=== PATIENT | female | born 1945 | race Caucasian/White ===

== ENCOUNTER 2017-09-29 12:14 | Outpatient (RCR) | payer MEDICARE, BC, SELFPAY ==
[2017-09-29 14:00] LABS: Absolute Neutrophil Count 5.1 X10^3/uL (2.0-7.7); Basophil# 0.03 X10^3/uL; Basophil% 0.4 % (0-1); Eosinophil# 0.27 X10^3/uL; Eosinophils% 3.5 % (0-5); Hematocrit 39.9 % (37-47); Hemoglobin 13.2 g/dl (12.0-15.0); Lymphocyte % 23.4 % (19-41); Mean Corp Hgb Conc 33.1 g/gl (32-36); Mean Corpuscular Hgb 30.8 pg (27.0-32.0); Mean Platelet Vol. 9.6 fl (6.2-12.0); Monocyte# 0.48 X10^3/uL; Monocyte% 6.3 % (0-10); Neutrophil # 5.09 X10^3/uL (2.7-7.7); Neutrophil % 66.3 % (47-70); Platelet Count 291 K/mm3 (150-450); RBC Distribution Width CV 14.1 % (11.6-14.6); RBC Distribution Width SD 46.9 fl (35.1-43.9); Red Blood Count 4.29 M/mm3 (4.2-5.4); White Blood Count 7.7 K/mm3 (4.4-11.0)
[2017-09-29 14:02] LABS: POSITIVE COUNT NO; POSITIVE DIFFERENTIAL NO; POSITIVE MORPHOLOGY NO
[2017-09-29 14:26] LABS: AST(SGOT) 22 U/L (15-37); Alanine Aminotransfer ALT/SGPT 24 U/L (12-78); Albumin, Serum 3.8 g/dL (3.4-5.0); Alkaline Phosphatase 83 U/L (45-117); Anion Gap 9 (5-15); BUN 21 mg/dL (7-18); BUN/Creat Ratio 19.3 RATIO (10-20); Calcium,Total 9.3 mg/dL (8.5-10.1); Chloride 101 mmol/L (98-107); Creatinine, Serum 1.09 mg/dL (0.55-1.02); EST Glomerular Filtration Rate 52 mL/min (>60); Est Glom Filt Rate - Afr Amer 63 mL/min (>60); Globulin 3.8 g/dL (2.2-4.2); Glucose 86 mg/dL (70-110); Potassium 4.1 mmol/L (3.5-5.1); Protein, Total 7.6 g/dL (6.4-8.2); Sodium Level 138 mmol/L (136-145)
== END 2017-09-29 15:00 | disposition home or self-care (01) ==
LOC: MTLAB 12:14
PROVIDERS: Family Provider Internal Medicine; PCP Internal Medicine; Visit Provider Internal Medicine Rheumatology
DX: M06.00 Rheumatoid arthritis without rheumatoid factor, unspecified site (principal); M18.0 Bilateral primary osteoarthritis of first carpometacarpal joints; M17.0 Bilateral primary osteoarthritis of knee; K21.9 Gastro-esophageal reflux disease without esophagitis; M47.892 Other spondylosis, cervical region; E11.9 Type 2 diabetes mellitus without complications; Z79.899 Other long term (current) drug therapy
CPT/HCPCS: 36415; 80053; 85025

== ENCOUNTER 2018-01-06 08:03 | Inpatient (IN) | payer MEDICARE, BC, SELFPAY ==
[2017-12-25 11:15] VITALS: BP 159/79; PULSE 65; RESP 16; TEMP 36.5; O2SAT 98; BMI 35.7
[2017-12-25 12:13] LABS: Hematocrit 39.8 % (37-47); Hemoglobin 13.5 g/dl (12.0-15.0); Mean Corp Hgb Conc 33.9 g/gl (32-36); Mean Corpuscular Hgb 30.6 pg (27.0-32.0); Mean Corpuscular Volume 90.2 fL (81-99); Mean Platelet Vol. 9.6 fl (6.2-12.0); Platelet Count 301 K/mm3 (150-450); RBC Distribution Width SD 45.2 fl (35.1-43.9); Red Blood Count 4.41 M/mm3 (4.2-5.4); White Blood Count 7.9 K/mm3 (4.4-11.0)
[2017-12-25 12:17] LABS: Scan Indicated on CBC? Y/N NO
[2017-12-25 12:45] LABS: Anion Gap 8 (5-15); BUN 15 mg/dL (7-18); BUN/Creat Ratio 15.9 RATIO (10-20); Chloride 104 mmol/L (98-107); Creatinine, Serum 0.94 mg/dL (0.55-1.02); EST Glomerular Filtration Rate 62 mL/min (>60); Est Glom Filt Rate - Afr Amer 75 mL/min (>60); Estimated Creatinine Clearance 49.15 ml/min; Glucose 78 mg/dL (74-106); Potassium 4.1 mmol/L (3.5-5.1); Sodium Level 138 mmol/L (136-145)
--- NOTE | 2017-12-31 10:13 | CASEMGMT ---
PRE-OP Joint Call: RN CM call to patient to discuss transition planning and care coordination plans for after surgery. Mrs. Ocasio lives in a bilevel home, 2 entry steps and 5 steps to the bedrooms and bathroom, with her spouse. Mrs. Ocasio reports she DOES NOT have a walker yet, and will need this arranged at the hospital prior to transitioning home at discharge. Mrs. Ocasio uses [employer] for her DME, and this is the company she has chosen she would like the RN CM to order her walker from. Mrs. Ocasio states her spouse and her daughter will be going with her to outpatient therapy at [facility] and will be helping at home during recovery. Disposition Plan: Home with support of spouse and dtr, new walker, and outpatient therapy at [facility] TARY Gilliam, RN-BC, CCM
[2018-01-06] VITALS (12 sets, daily range): BP systolic 91–150; BP diastolic 49–79; PULSE 60–87; RESP 16–18; TEMP 36.3–36.8; O2SAT 95–100; BMI 35.7
[2018-01-06] MEDS: oxyCODONE HCl Cr 10 MG Tablet PO (08:56)
[2018-01-06] MEDS: Acetaminophen 500 MG Tablet 1000 MG PO ×3 (08:56→21:58)
[2018-01-06] MEDS: Cefazolin 2 GM in 0.9% Normal Saline 100 ML IV (10:44)
[2018-01-06] MEDS: Lactated Ringers 1,000 ML 125 ML IV ×3 (11:45→21:58)
--- NOTE | 2018-01-06 13:00 | RAD_ITS ---
STUDY: X-RAY - PELVIS AND RIGHT HIP REASON FOR EXAM: Female, 72 years old. Total hip replacement. TECHNIQUE: Radiological exam, hip, unilateral, with pelvis when performed; 2 or 3 views. COMPARISON: None. FINDINGS: The patient is status post right hip replacement. There is good alignment. Postoperative soft tissue changes. RAD/Hip Min 2 Views (Portable) IMPRESSION: Status post right total hip replacement. There is good alignment. Electronically Signed: Musa Cortez MD at 13:37 EDT Tel [phone], Service support ,
--- NOTE | 2018-01-06 14:14 | CPS ---
RT set up pt's home CPAP, added humdity for pt comfort. pt placed self on for nap
[2018-01-06] MEDS: Ondansetron 4 MG/2 ML Vial IV (16:12)
[2018-01-06] MEDS: 0.9% NaCl Peripheral Flush Adult/Peds IV (16:12)
[2018-01-06] MEDS: Cefazolin 1 GM/50 ML BAG IV (18:29)
[2018-01-06] MEDS: Aspirin 325 MG Tablet PO (18:29)
[2018-01-06] MEDS: Celecoxib 200 MG Capsule PO (21:57)
[2018-01-06] MEDS: oxyCODONE 5 MG Tablet PO (21:58)
[2018-01-07] MEDS: Cefazolin 1 GM/50 ML BAG IV (02:32)
[2018-01-07 04:30] VITALS: BP 134/63; PULSE 79; RESP 16; TEMP 36.6; O2SAT 97
[2018-01-07] MEDS: Acetaminophen 500 MG Tablet 1000 MG PO ×2 (05:51→13:55)
[2018-01-07 06:11] LABS: Hematocrit 35.4 % (37-47); Hemoglobin 11.7 g/dl (12.0-15.0); Mean Corp Hgb Conc 33.1 g/gl (32-36); Mean Corpuscular Hgb 30.8 pg (27.0-32.0); Mean Corpuscular Volume 93.2 fL (81-99); Mean Platelet Vol. 9.4 fl (6.2-12.0); Platelet Count 237 K/mm3 (150-450); RBC Distribution Width CV 14.3 % (11.6-14.6); RBC Distribution Width SD 47.1 fl (35.1-43.9); White Blood Count 7.9 K/mm3 (4.4-11.0)
[2018-01-07 06:26] LABS: Scan Indicated on CBC? Y/N NO
[2018-01-07 06:57] LABS: Anion Gap 8 (5-15); BUN 11 mg/dL (7-18); BUN/Creat Ratio 12.4 RATIO (10-20); Calcium,Total 8.2 mg/dL (8.5-10.1); Chloride 108 mmol/L (98-107); Creatinine, Serum 0.88 mg/dL (0.55-1.02); EST Glomerular Filtration Rate 66 mL/min (>60); Est Glom Filt Rate - Afr Amer 80 mL/min (>60); Estimated Creatinine Clearance 52.51 ml/min; Glucose 91 mg/dL (74-106); Potassium 3.9 mmol/L (3.5-5.1); Sodium Level 142 mmol/L (136-145)
--- NOTE | 2018-01-07 07:21 | PCM.PN.ORT ---
Subjective: Patient is resting comfortably in chair at bedside during exam. No adverse events overnight. Pain in her right hip is been very well controlled. She took an oxycodone to help with sleep yesterday evening but otherwise has not had any narcotic pain medicine. She currently denies chest pain, shortness of breath, dizziness, calf pain. She is interested in being discharged home later this afternoon. Objective: Patient is alert and oriented ?3. No acute distress at rest. Breathing easily without respiratory distress. Inspection of right hip reveals a dressing with a spot of dried bloody drainage. Negative Mateo bilaterally. Without signs of DVT. Sensation intact light touch bilateral lower extremities. Pedal pulses present +2 bilaterally. Patient able to actively plantar and dorsiflex bilateral feet against resistance. Neurovascularly intact. - Physical Exam Vital Signs Temp Pulse Resp BP Pulse Ox 97.9 F 79 16 134/63 H 97 01/07/18 04:30 01/07/18 04:30 01/07/18 04:30 01/07/18 04:30 01/07/18 04:30 Oxygen Delivery Method Room Air Weight: 102.058 kg Body Mass Index (BMI) 35.7 Intake and Output for Last 24 Hours 01/05/18 01/06/18 01/07/18 23:59 23:59 23:59 Intake Total 2851 / 2851 2055 Output Total 50 / 50 Balance 2801 / 2801 2055 Laboratory Tests Past 24 Hrs 01/07/18 01/07/18 05:55 05:55 WBC 7.9 RBC 3.80 L Hgb 11.7 L Hct 35.4 L MCV 93.2 MCH 30.8 MCHC 33.1 RDW 14.3 RDW Differential 47.1 H Plt Count 237 MPV 9.4 Sodium 142 Potassium 3.9 Chloride 108 H Carbon Dioxide 26.0 Anion Gap 8 BUN 11 Creatinine 0.88 Estim Creat Clear Calc 52.51 Est GFR (MDRD) Af Amer 80 Est GFR (MDRD) Non-Af 66 BUN/Creatinine Ratio 12.4 Glucose 91 Calcium 8.2 L Medical Necessity - Tobacco Use Smoking Status: Former smoker Assessment/Plan 1. Status post right VANESSA; postop day #1 2. Continue Tylenol and OxyIR for pain control 3. DVT prophylaxis; bilateral teds SCDs and begin aspirin therapy 4. Begin PT/OT; weightbearing as tolerated with walker, hip dislocation precautions 5. Encourage incentive spirometry 6. Continue discharge planning with case management 7. Orthopedically stable okay for discharge to home this afternoon if having adequate pain control and moving well with physical therapy
--- NOTE | 2018-01-07 07:38 | PCM.DC.THR ---
Discharge Diet: No Restrictions Discharge Activity: May Not Drive - while taking narcotic pain medications., May not drive while taking narcotic pain medications., Use Walker May shower in (days): 1 - only if incision is dry and without drainage. Do NOT soak/submerge in tub/pool/rowley/stream/hot tub. Okay to shower over Mepilex dressing Ice area for (Minutes): 20 - Every hour as needed Weight Bearing Status: Weight bearing as tolerated Elevate: Operative Extremity Additional Activity Instructions:: Wear elastic stockings for 2 weeks. DO NOT use alcohol with narcotic pain medication. DO NOT make important decisions while taking narcotic medication. If you have problems with taking your medication (rash, itching, nausea, etc.) call the office at once. See postoperative pink sheet Call your doctor if your incision/area has: Continuous Slow Oozing, Sudden Increased Bleeding, Increased Pain/ Swelling, Increased Redness, Foul Smelling Discharge Call your doctor if you observe: Fever of 101 or Higher, Coldness, Increased Pain, Numbness or Tingling, Shortness of breath, Chest pain, Increased palpitations (irregular heartbeat), Calf discomfort, Uncontrolled pain Remove Dressing in (days):: 5 Cleanse incision/area with: Soap & Water Additional Dressing/Incision Instructions:: See postoperative pink sheet Allergies/Adverse Reactions: Allergies Penicillins [PCN] Allergy (Verified 12/25/17 11:08) Rash Sulfa (Sulfonamide Antibiotics) Allergy (Verified 12/25/17 11:08) Rash azithromycin [From Zithromax] Adverse Reaction (Verified 01/05/18 12:42) Nausea/Vom/Diarrhea codeine Adverse Reaction (Verified 01/05/18 13:27) Other VISION PROBLEMS nitroglycerin [From Nitroglyn] Adverse Reaction (Verified 12/25/17 11:08) Other Medications to take at Discharge Folic Acid 2 tab PO DAILY 10/20/15 Lisinopril 20 mg PO DAILY 10/20/15 Methotrexate Sodium [Methotrexate] 15 mg PO QWEEK 10/20/15 Fluoxetine [Prozac] 10 mg PO DAILY 10/21/15 Cholecalciferol (Vitamin D3) [Vitamin D3] 2,000 unit PO DAILY 12/25/17 Acetaminophen [Tylenol] 1,000 mg PO Q8 #60 tab 01/07/18 Aspirin 325 mg PO BIDCM #30 tab 01/07/18 Oxycodone [Oxyir] 5 - 10 mg PO Q4H PRN PRN 7 Days #56 tablet 01/07/18 Senna [Senokot] 1 tab PO BID #60 tab 01/07/18 The following prescriptions were given: Oxycodone [Oxyir] 5 - 10 mg PO Q4H PRN PRN 7 Days #56 tablet PRN Reason: Mod-Severe Pain (-07/01) Acetaminophen [Tylenol] 1,000 mg PO Q8 #60 tab Aspirin 325 mg PO BIDCM #30 tab Senna [Senokot] 1 tab PO BID #60 tab Primary Care Physician: Jesus Ballard MD [Primary Care Provider] -
[2018-01-07] MEDS: oxyCODONE 5 MG Tablet PO (08:49)
[2018-01-07] MEDS: Folic Acid 1 MG Tablet PO (08:49)
[2018-01-07] MEDS: Aspirin 325 MG Tablet PO (08:49)
[2018-01-07 08:57] VITALS: BP 133/76; PULSE 79; RESP 16; TEMP 36.8; O2SAT 96
[2018-01-07 09:00] VITALS: PULSE 76
--- NOTE | 2018-01-07 11:51 | CASEMGMT ---
GERMAN JOSEPH Face to Face with patient for initial transition planning/care coordination assessment. GERMAN JOSEPH introduced self and role at [facility]. Patient sitting in chair, alert and oriented. Patient willing to participate in assessment and is able to answer all questions appropriately. Care providers, pharmacy, and demographics verified. Patient states she has shower chair, raised toilet seat, cane, grab bars, hand held shower, Cpap, and nebulizer at home. Patient states that she needs a FWW and is agreeable to [employer]. GERMAN JOSEPH will obtain script for FWW and arrange for delivery to hospital prior to discharge. Patient wishes to discharge home and has outpatient therapy setup with [facility] with providing transportation. Patietn states she has no further needs or concerns at this time. CM to follow for discharge planning needs that may arise. Disposition Plan: Patient to discharge home with outpatient therapy, family support, and follow-up plans in place.
[2018-01-07] MEDS: Lisinopril 20 MG Tablet PO (12:12)
[2018-01-07] MEDS: FLUoxetine 10 MG Capsule PO (12:12)
[2018-01-07] MEDS: Celecoxib 200 MG Capsule PO (12:12)
--- NOTE | 2018-01-07 12:54 | CASEMGMT ---
RN CM received script for FFW and [place] [facility] FFW to patient's room prior to discharge. RN CM will continue to follow this patient and plan for a safe discharge.
[2018-01-07 13:52] VITALS: BP 124/76; PULSE 89; RESP 18; TEMP 36.6; O2SAT 96
== END 2018-01-07 14:22 | disposition home or self-care (01) | DRG 470 ==
PROVIDERS: Admitting Provider Orthopaedic Surgery; Family Provider Internal Medicine; PCP Internal Medicine; Visit Provider Orthopaedic Surgery
PROC: 0SR90JZ Replacement of Right Hip Joint with Synthetic Substitute, Open Approach (ICD-10-PCS; CPT 27130; principal; 2018-01-06 09:45)
DX: M16.11 Unilateral primary osteoarthritis, right hip (principal); M06.9 Rheumatoid arthritis, unspecified; I10 Essential (primary) hypertension; Z87.891 Personal history of nicotine dependence; Z79.82 Long term (current) use of aspirin; Z79.52 Long term (current) use of systemic steroids; Z79.899 Other long term (current) drug therapy; G47.30 Sleep apnea, unspecified; K21.9 Gastro-esophageal reflux disease without esophagitis; Z85.038 Personal history of other malignant neoplasm of large intestine; F41.9 Anxiety disorder, unspecified; F32.9 Major depressive disorder, single episode, unspecified; Z96.651 Presence of right artificial knee joint
CPT/HCPCS: 36415; 73502; 80048; 85027; 87081; 97110; 97162; 97165; 97530; 97535; J7120; A4216; J2405

== ENCOUNTER → 2018-02-12 09:39 | Outpatient (CLI) | payer MEDICARE, BC, SELFPAY ==
[2018-02-12 12:45] LABS: AST(SGOT) 18 U/L (15-37); Alanine Aminotransfer ALT/SGPT 18 U/L (13-56); Albumin, Serum 3.6 g/dL (3.2-5.0); Alkaline Phosphatase 89 U/L (45-117); Anion Gap 5 (5-15); BUN 20 mg/dL (7-18); BUN/Creat Ratio 20.7 RATIO (10-20); Chloride 107 mmol/L (98-107); Creatinine, Serum 0.97 mg/dL (0.55-1.02); EST Glomerular Filtration Rate 60 mL/min (>60); Est Glom Filt Rate - Afr Amer 72 mL/min (>60); Globulin 3.6 g/dL (2.2-4.2); Glucose 79 mg/dL (74-106); Potassium 4.2 mmol/L (3.5-5.1); Protein, Total 7.2 g/dL (6.4-8.2); Sodium Level 137 mmol/L (136-145)
[2018-02-12 14:36] LABS: Absolute Lymphocyte Count 1.86 X10^3/ul (0.83-4.51); Absolute Neutrophil Count 3.6 X10^3/uL (2.0-7.7); Basophil# 0.03 X10^3/uL; Basophil% 0.4 % (0-1); Eosinophil# 0.81 X10^3/uL; Eosinophils% 11.9 % (0-5); Hematocrit 37.8 % (37-47); Hemoglobin 12.5 g/dl (12.0-15.0); Lymphocyte # 1.86 X10^3/ul (4.0); Lymphocyte % 27.2 % (19-41); Mean Corp Hgb Conc 33.1 g/gl (32-36); Mean Corpuscular Hgb 29.7 pg (27.0-32.0); Mean Corpuscular Volume 89.8 fL (81-99); Mean Platelet Vol. 10.4 fl (6.2-12.0); Monocyte# 0.55 X10^3/uL; Monocyte% 8.1 % (0-10); Neutrophil # 3.58 X10^3/uL (2.7-7.7); Neutrophil % 52.4 % (47-70); Platelet Count 305 K/mm3 (150-450); RBC Distribution Width CV 14.3 % (11.6-14.6); RBC Distribution Width SD 45.8 fl (35.1-43.9); Red Blood Count 4.21 M/mm3 (4.2-5.4); White Blood Count 6.8 K/mm3 (4.4-11.0)
[2018-02-12 14:38] LABS: POSITIVE COUNT NO; POSITIVE DIFFERENTIAL NO; POSITIVE MORPHOLOGY NO
== END ==
PROVIDERS: Family Provider Internal Medicine; PCP Internal Medicine; Visit Provider Internal Medicine Rheumatology
DX: M06.00 Rheumatoid arthritis without rheumatoid factor, unspecified site (principal); M18.0 Bilateral primary osteoarthritis of first carpometacarpal joints; M17.0 Bilateral primary osteoarthritis of knee; K21.9 Gastro-esophageal reflux disease without esophagitis; M47.892 Other spondylosis, cervical region; E11.9 Type 2 diabetes mellitus without complications; Z79.899 Other long term (current) drug therapy
CPT/HCPCS: 36415; 80053; 85025

== ENCOUNTER → 2018-05-08 08:02 | Outpatient (CLI) | payer MEDICARE, BC, SELFPAY ==
[2018-05-08 10:41] LABS: Absolute Lymphocyte Count 2.09 X10^3/ul (0.83-4.51); Absolute Neutrophil Count 3.4 X10^3/uL (2.0-7.7); Basophil# 0.04 X10^3/uL; Basophil% 0.6 % (0-1); Eosinophil# 0.37 X10^3/uL; Eosinophils% 5.8 % (0-5); Hematocrit 38.8 % (37-47); Hemoglobin 12.9 g/dl (12.0-15.0); Lymphocyte # 2.09 X10^3/ul (4.0); Lymphocyte % 32.8 % (19-41); Mean Corp Hgb Conc 33.2 g/gl (32-36); Mean Corpuscular Hgb 30.1 pg (27.0-32.0); Mean Corpuscular Volume 90.7 fL (81-99); Mean Platelet Vol. 9.8 fl (6.2-12.0); Monocyte# 0.44 X10^3/uL; Monocyte% 6.9 % (0-10); Neutrophil # 3.43 X10^3/uL (2.7-7.7); Neutrophil % 53.7 % (47-70); Platelet Count 294 K/mm3 (150-450); RBC Distribution Width CV 15.2 % (11.6-14.6); RBC Distribution Width SD 49.5 fl (35.1-43.9); Red Blood Count 4.28 M/mm3 (4.2-5.4); White Blood Count 6.4 K/mm3 (4.4-11.0)
[2018-05-08 10:48] LABS: POSITIVE COUNT NO; POSITIVE DIFFERENTIAL NO; POSITIVE MORPHOLOGY NO
[2018-05-08 10:54] LABS: ALB/GLOB Ratio 0.9 RATIO (0.9-2.4); AST(SGOT) 20 U/L (15-37); Alanine Aminotransfer ALT/SGPT 23 U/L (13-56); Albumin, Serum 3.2 g/dL (3.2-5.0); Alkaline Phosphatase 80 U/L (45-117); Anion Gap 9 (5-15); BUN 19 mg/dL (7-18); BUN/Creat Ratio 18.8 RATIO (10-20); Calcium,Total 8.5 mg/dL (8.5-10.1); Chloride 105 mmol/L (98-107); Creatinine, Serum 1.01 mg/dL (0.55-1.02); EST Glomerular Filtration Rate 57 mL/min (>60); Est Glom Filt Rate - Afr Amer 69 mL/min (>60); Globulin 3.6 g/dL (2.2-4.2); Glucose 82 mg/dL (74-106); Potassium 4.2 mmol/L (3.5-5.1); Protein, Total 6.8 g/dL (6.4-8.2); Sodium Level 141 mmol/L (136-145)
== END ==
PROVIDERS: Family Provider Internal Medicine; PCP Internal Medicine; Visit Provider Internal Medicine Rheumatology
DX: M06.00 Rheumatoid arthritis without rheumatoid factor, unspecified site (principal); M18.0 Bilateral primary osteoarthritis of first carpometacarpal joints; M17.0 Bilateral primary osteoarthritis of knee; K21.9 Gastro-esophageal reflux disease without esophagitis; M47.892 Other spondylosis, cervical region; E11.9 Type 2 diabetes mellitus without complications; Z79.899 Other long term (current) drug therapy
CPT/HCPCS: 36415; 80053; 85025

== ENCOUNTER → 2018-08-07 10:56 | Outpatient (CLI) | payer MEDICARE, BC, SELFPAY ==
[2018-08-07 11:31] LABS: Absolute Lymphocyte Count 2.19 X10^3/ul (0.83-4.51); Absolute Neutrophil Count 3.4 X10^3/uL (2.0-7.7); Basophil# 0.03 X10^3/uL; Basophil% 0.5 % (0-1); Eosinophil# 0.38 X10^3/uL; Hematocrit 39.5 % (37-47); Hemoglobin 13.1 g/dl (12.0-15.0); Lymphocyte # 2.19 X10^3/ul (4.0); Lymphocyte % 34.3 % (19-41); Mean Corp Hgb Conc 33.2 g/gl (32-36); Mean Corpuscular Volume 93.4 fL (81-99); Monocyte# 0.39 X10^3/uL; Monocyte% 6.1 % (0-10); Neutrophil # 3.38 X10^3/uL (2.7-7.7); Neutrophil % 52.9 % (47-70); Platelet Count 302 K/mm3 (150-450); RBC Distribution Width CV 14.3 % (11.6-14.6); RBC Distribution Width SD 47.3 fl (35.1-43.9); Red Blood Count 4.23 M/mm3 (4.2-5.4); White Blood Count 6.4 K/mm3 (4.4-11.0)
[2018-08-07 11:35] LABS: POSITIVE COUNT NO; POSITIVE DIFFERENTIAL NO; POSITIVE MORPHOLOGY NO
[2018-08-07 11:36] LABS: AST(SGOT) 22 U/L (15-37); Alanine Aminotransfer ALT/SGPT 26 U/L (13-56); Albumin, Serum 3.5 g/dL (3.2-5.0); Alkaline Phosphatase 75 U/L (45-117); Anion Gap 7 (5-15); BUN 18 mg/dL (7-18); BUN/Creat Ratio 16.7 RATIO (10-20); Calcium,Total 8.8 mg/dL (8.5-10.1); Chloride 104 mmol/L (98-107); Creatinine, Serum 1.08 mg/dL (0.55-1.02); EST Glomerular Filtration Rate 53 mL/min (>60); Est Glom Filt Rate - Afr Amer 64 mL/min (>60); Globulin 3.4 g/dL (2.2-4.2); Glucose 87 mg/dL (74-106); Potassium 4.2 mmol/L (3.5-5.1); Protein, Total 6.9 g/dL (6.4-8.2); Sodium Level 140 mmol/L (136-145)
== END ==
LOC: LABSPEC 10:56 → MTLAB 14:17
PROVIDERS: Family Provider Internal Medicine; PCP Internal Medicine; Referring Provider Internal Medicine Rheumatology; Visit Provider Internal Medicine Rheumatology
DX: M06.00 Rheumatoid arthritis without rheumatoid factor, unspecified site (principal); M18.0 Bilateral primary osteoarthritis of first carpometacarpal joints; M17.0 Bilateral primary osteoarthritis of knee; K21.9 Gastro-esophageal reflux disease without esophagitis; M47.892 Other spondylosis, cervical region; E11.9 Type 2 diabetes mellitus without complications; Z79.899 Other long term (current) drug therapy
CPT/HCPCS: 36415; 80053; 85025

== ENCOUNTER → 2018-11-09 09:30 | Outpatient (CLI) | payer MEDICARE, BC, SELFPAY ==
[2018-01-06 14:18] VITALS: BMI 35.7
--- NOTE | 2018-11-09 09:34 | RAD_ITS ---
STUDY: X-RAY - RIGHT SHOULDER REASON FOR EXAM: Female, 73 years old. Arthritis TECHNIQUE: view(s) of the shoulder. COMPARISON: None. FINDINGS: There is mild degenerative arthrosis of the glenohumeral articulation. There is degenerative arthrosis of the acromioclavicular joint without inferior osseous spur formation. Normal acromion. Normal humeral head and visualized proximal humerus. The soft tissue structures are unremarkable. Normal visualized pulmonary apex. RAD/Shoulder min 2 Views IMPRESSION: Arthrosis. No visualized acute fracture. Electronically Signed: Georgiana Moreira MD at 23:45 EST Tel , Service support ,
[2018-11-09 12:40] LABS: Absolute Lymphocyte Count 1.89 X10^3/ul (0.83-4.51); Basophil# 0.03 X10^3/uL; Basophil% 0.4 % (0-1); Eosinophils% 5.9 % (0-5); Hematocrit 40.7 % (37-47); Hemoglobin 13.2 g/dl (12.0-15.0); Lymphocyte # 1.89 X10^3/ul (4.0); Lymphocyte % 27.8 % (19-41); Mean Corp Hgb Conc 32.4 g/gl (32-36); Mean Corpuscular Hgb 29.7 pg (27.0-32.0); Mean Corpuscular Volume 91.7 fL (81-99); Mean Platelet Vol. 9.8 fl (6.2-12.0); Monocyte# 0.46 X10^3/uL; Monocyte% 6.8 % (0-10); Neutrophil # 4.01 X10^3/uL (2.7-7.7); Platelet Count 303 K/mm3 (150-450); RBC Distribution Width CV 14.4 % (11.6-14.6); RBC Distribution Width SD 47.9 fl (35.1-43.9); Red Blood Count 4.44 M/mm3 (4.2-5.4); White Blood Count 6.8 K/mm3 (4.4-11.0)
[2018-11-09 12:44] LABS: POSITIVE COUNT NO; POSITIVE DIFFERENTIAL NO; POSITIVE MORPHOLOGY NO
[2018-11-09 12:54] LABS: ALB/GLOB Ratio 0.9 RATIO (0.9-2.4); AST(SGOT) 26 U/L (15-37); Alanine Aminotransfer ALT/SGPT 25 U/L (13-56); Albumin, Serum 3.5 g/dL (3.2-5.0); Alkaline Phosphatase 89 U/L (45-117); Anion Gap 10 (5-15); BUN 19 mg/dL (7-18); BUN/Creat Ratio 18.1 RATIO (10-20); Calcium,Total 8.5 mg/dL (8.5-10.1); Chloride 107 mmol/L (98-107); Creatinine, Serum 1.05 mg/dL (0.55-1.02); EST Glomerular Filtration Rate 54 mL/min (>60); Est Glom Filt Rate - Afr Amer 66 mL/min (>60); Globulin 3.7 g/dL (2.2-4.2); Glucose 103 mg/dL (74-106); Potassium 3.7 mmol/L (3.5-5.1); Protein, Total 7.2 g/dL (6.4-8.2); Sodium Level 141 mmol/L (136-145)
== END ==
PROVIDERS: Family Provider Internal Medicine; PCP Internal Medicine; Referring Provider Internal Medicine Rheumatology; Visit Provider Internal Medicine Rheumatology
DX: M06.00 Rheumatoid arthritis without rheumatoid factor, unspecified site (principal); M18.0 Bilateral primary osteoarthritis of first carpometacarpal joints; M17.0 Bilateral primary osteoarthritis of knee; K21.9 Gastro-esophageal reflux disease without esophagitis; M47.892 Other spondylosis, cervical region; E11.9 Type 2 diabetes mellitus without complications; Z79.899 Other long term (current) drug therapy
CPT/HCPCS: 36415; 73030; 80053; 85025

== ENCOUNTER → 2019-02-01 10:18 | Outpatient (CLI) | payer MEDICARE, BC, SELFPAY ==
[2018-01-06 14:18] VITALS: BMI 35.7
[2019-02-01 12:29] LABS: Absolute Lymphocyte Count 1.97 X10^3/ul (0.83-4.51); Basophil# 0.02 X10^3/uL; Basophil% 0.2 % (0-1); Eosinophil# 0.14 X10^3/uL; Eosinophils% 1.6 % (0-5); Hemoglobin 12.9 g/dl (12.0-15.0); Lymphocyte # 1.97 X10^3/ul (4.0); Lymphocyte % 22.9 % (19-41); Mean Corp Hgb Conc 33.1 g/gl (32-36); Mean Corpuscular Volume 90.7 fL (81-99); Mean Platelet Vol. 9.7 fl (6.2-12.0); Monocyte# 0.45 X10^3/uL; Monocyte% 5.2 % (0-10); Neutrophil # 6.01 X10^3/uL (2.7-7.7); Neutrophil % 69.9 % (47-70); Platelet Count 316 K/mm3 (150-450); RBC Distribution Width CV 14.5 % (11.6-14.6); RBC Distribution Width SD 46.7 fl (35.1-43.9); White Blood Count 8.6 K/mm3 (4.4-11.0)
[2019-02-01 12:33] LABS: POSITIVE COUNT NO; POSITIVE DIFFERENTIAL NO; POSITIVE MORPHOLOGY NO
[2019-02-01 12:47] LABS: AST(SGOT) 22 U/L (15-37); Alanine Aminotransfer ALT/SGPT 21 U/L (13-56); Albumin, Serum 3.6 g/dL (3.2-5.0); Alkaline Phosphatase 100 U/L (45-117); Anion Gap 2 (5-15); BUN 17 mg/dL (7-18); BUN/Creat Ratio 16.7 RATIO (10-20); Calcium,Total 8.7 mg/dL (8.5-10.1); Chloride 107 mmol/L (98-107); Creatinine, Serum 1.02 mg/dL (0.55-1.02); EST Glomerular Filtration Rate 56 mL/min (>60); Est Glom Filt Rate - Afr Amer 68 mL/min (>60); Globulin 3.5 g/dL (2.2-4.2); Glucose 106 mg/dL (74-106); Potassium 4.2 mmol/L (3.5-5.1); Protein, Total 7.1 g/dL (6.4-8.2); Sodium Level 139 mmol/L (136-145)
== END ==
PROVIDERS: Family Provider Internal Medicine; PCP Internal Medicine; Referring Provider Internal Medicine Rheumatology; Visit Provider Internal Medicine Rheumatology
DX: M06.00 Rheumatoid arthritis without rheumatoid factor, unspecified site (principal); M18.0 Bilateral primary osteoarthritis of first carpometacarpal joints; M17.0 Bilateral primary osteoarthritis of knee; K21.9 Gastro-esophageal reflux disease without esophagitis; M47.892 Other spondylosis, cervical region; E11.9 Type 2 diabetes mellitus without complications; Z79.899 Other long term (current) drug therapy
CPT/HCPCS: 36415; 80053; 85025

== ENCOUNTER → 2019-04-21 | Outpatient (CLI) | payer MEDICARE, BC, SELFPAY ==
--- NOTE | 2019-04-05 03:02 | HP_ITS ---
Intake Vital Signs 04/05/19 Body Mass Index (BMI) 35.7 04/05/19 Height 5 ft 7 in 04/05/19 Weight: 214 lb 3 oz 04/05/19 Body Mass Index (BMI) 33.5 04/05/19 Blood Pressure 127/82 H 04/05/19 Blood Pressure Location Rt brachial 04/05/19 Respiratory Rate 20 H 04/05/19 Pulse Rate 76 04/05/19 Pulse Ox 98 Intake Visit Reasons: Lt Breast Calcifications Birads 4 Chief Complaint: abn mammo left [employer] Required: No Is patient in pain?: No Allergies Penicillins [PCN] Allergy (Verified 04/05/19 14:47) Rash Sulfa (Sulfonamide Antibiotics) Allergy (Verified 04/05/19 14:47) Rash azithromycin [From Zithromax] Adverse Reaction (Verified 04/05/19 14:47) Nausea/Vom/Diarrhea codeine Adverse Reaction (Verified 04/05/19 14:47) Other nitroglycerin [From Nitroglyn] Adverse Reaction (Verified 04/05/19 14:47) Other Medications Folic Acid 2 tab PO DAILY 10/20/15 [History Confirmed 04/05/19] Lisinopril 20 mg PO DAILY 10/20/15 [History Confirmed 04/05/19] Methotrexate Sodium [Methotrexate] 15 mg PO QWEEK 10/20/15 [History Confirmed 04/05/19] Fluoxetine [Prozac] 10 mg PO DAILY 10/21/15 [History Confirmed 04/05/19] Cholecalciferol (Vitamin D3) [Vitamin D3] 2,000 unit PO DAILY 12/25/17 [History Confirmed 04/05/19] Acetaminophen [Tylenol] 1,000 mg PO Q8 #60 tab 01/07/18 [Rx Confirmed 04/05/19] Aspirin 325 mg PO BIDCM #30 tab 01/07/18 [Rx Confirmed 04/05/19] Oxycodone [Oxyir] 5 - 10 mg PO Q4H PRN PRN 7 Days #56 tab 01/07/18 [Rx Confirmed 04/05/19] Senna [Senokot] 1 tab PO BID #60 tab 01/07/18 [Rx Confirmed 04/05/19] Is last menstrual period known: No Post menopausal: Yes Patient : No PFSH Medical History (Updated 04/05/19 @ 15:01 by Jamari Montero MD) Abnormal mammogram of left breast (Acute) Abdominal pain (Acute) History of colon cancer (Chronic) Rheumatoid arthritis (Chronic) Hypertension (Chronic) Surgical History (Updated 04/05/19 @ 14:45 by Liza Rodriguez) History of colonoscopy (Acute ~2016) History of hernia repair (Acute) History of section (Acute) History of colectomy (Acute ~2001) Family History (Updated 04/05/19 @ 14:46 by Liza Rodriguez) Sister Diabetes Asthma Hypertension Brother Heart disease Hypertension Social History (Updated 04/05/19 @ 15:02 by Jamari Montero MD) Smoking Status: Former smoker HPI HPI HPI: FABIO PORTILLO, is a 73 F who presents to the office today for HPI HPI Surgical H&P: Yes HPI: FABIO PORTILLO, is a 73 F who presents to the office today for surgical consultation regarding abnormal left breast mammogram. Is a very pleasant female. She is [age] years old. I have most recently assisted her December 16, 2016 with a stereotactic needle core left breast biopsy. That also was performed for clustered microcalcifications. 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 Her new area of microcalcifications is separate from that area. That area does remain marked. At the [facility] on March 09, 2019 she had bilateral mammography. BI-RADS Category 4A. Cluster mitral applications left breast 12 o'clock position middle depth. These are felt to have increased in number. Fortunately there felt to be of lower suspicion. Patient has not had any nipple discharge or bleeding. On my personal review of her films I suspect that this is likely a micro- fibroadenoma as well. ROS General General: Yes fatigue and colon cancer; no weight change, appetite, breast cancer or weakness HEENT HEENT: No difficulty swallowing, eye injury, eye surgery, swollen glands or hoarseness Endo Endocrine: No thyroid disease, diabetes mellitus, thyroid cancer, Hair loss, heat intolerance or cold intolerance Breast Breast: Yes abnormal mammogram; no left breast lump, right breast lump, nipple discharge, breast pain, abnormal US or breast enlargement Cardio Cardiovascular: Yes high blood pressure; no murmur, pacemaker, heart disease, atrial fibrillation, heart attack, heart stent, palpitations, shortness of breat with exertion or chest pain Psych Psychiatric: Yes depression and anxiety; no hearing voices Resp Respiratory: Yes shortness of breath, Yes sleep apnea, No cough, No COPD, No asthma, No emphysema, No wheezing Gastro Gastrointestinal: No abdominal pain, No nausea or vomiting, No diarrhea, No constipation, No blood in stool, Yes acid reflux, Yes hemorrhoids, No ulcers, No gallbladder problem, No black,tarry stools Neuro Neurologic: No weakness Exam Chest Breast Palpation: No nipple discharge Other: Bilateral breasts: No focal mass. No nipple discharge. No axillary or clavicular adenopathy Cardio Heart Sounds: no murmurs Assessment & Plan Problems 1. Abnormal mammogram of left breast R92.8 Plan Abnormal left mammogram with clustered microcalcifications 12 o'clock position middle depth. I recommended the patient is stereotactic needle core biopsy of this area. She is aware of the technique, benefit, risks, alternatives. She has had an opportunity to ask and have questions answered. We will hold her aspirin for 3 days preprocedure. We will schedule and proceed at her discretion. I have a lower level of suspicion regarding this area. Jamari Montero M.D., F.A.C.S. Coding Level of Care Code Off vis,est,level 2 Diagnoses Abnormal mammogram of left breast R92.8 04/05/19 1502 <Electronically signed by Jamari waddell MD> Date _ Jamari Montero MD I have re-examined the patient. There are no clinical changes since date of exam.
[2019-04-05 14:50] VITALS: BMI 35.7
--- NOTE | 2019-04-21 11:25 | BRBX_PTH ---
PATIENT: FABIO PORTILLO LOC: [facility] U#:[id number] AGE/SX: 74/F ROOM: RE04/21/[address]: Dr. Jamari Montero MD : 1945 BED: DIS: 04/21/2019 SPEC #: [id number] RECD: 04/21/19 11:58 STATUS: ALEAH JEAN-PAUL #: [id number] YEN: 04/21/19 11:[address]: Jamari Montero DEPT: SURGICAL PATHOLOGY RECD BY: Brandon Montoya ENTERED: 04/21/19 12:39 SP TYPE: BREAST BX OTHR DR: MD Jesus French MD Tissues: A - Left breast, NOS B - Left breast, NOS Procedures: Surgery Specimen Level IV HEADER OPERATION: Left stereotactic breast biopsy PRE-OP DIAGNOSIS: Left breast at 12 o'clock middle depth microcalcifications TISSUE SUBMITTED: A. Left breast core tissue, more medial, B. Left breast core tissue, more lateral ISCHEMIC TIME: 2 minutes FIXATION TIME: 8 hours MICROSCOPIC DIAGNOSIS A. Left breast, medial, stereotactic needle core biopsy: Fragments of hyalinized fibroadenoma with associated clustered microcalcifications. Mild duct ectasia. No evidence of malignancy. B. Left breast, lateral, stereotactic needle core biopsy: Fragments of hyalinized fibroadenoma with associated clustered microcalcifications. Mild duct ectasia. No evidence of malignancy. AM:geo 04/22/19 MICROSCOPIC DESCRIPTION Slides are reviewed. GROSS DESCRIPTION A - Received in fixative is one container labeled with the patient's name and designated mid depth 12 o'clock, more medial. The specimen consists of multiple elongated fragments of velazquez-yellow fibroadipose tissue that in aggregate measure 4 x 3 x 0.3 cm. The entire specimen is submitted in two cassettes. B - Received in fixative is one container labeled with the patient's name and designated more lateral. The specimen consists of multiple elongated fragments of velazquez-yellow fibroadipose tissue that in aggregate measure 5 x 3 x 0.3 cm. The entire specimen is submitted in two cassettes. / MICHELLE:geo 04/21/19 TC:5 CPT: 23964 x2
--- NOTE | 2019-04-21 11:38 | PCM.OPRPT ---
Problem List (1) Abnormal mammogram of left breast Status: Acute Report of Operation Date of Procedure: 04/21/19 Pre-Operative Diagnosis: Clustered microcalcifications mid left breast Post-Operative Diagnosis: 2 areas of clustered calcifications mid left breast. #1 more medially positioned. #2 more laterally positioned Surgery/Procedure Performed:: Stereotactic needle core biopsy left breast x2 sites Description of Surgical Findings:: Timeout and informed consent was obtained. 74-year-old female taken to the stereotactic unit. On preoperative imaging she was felt to have clustered microcalcifications in the central left breast. She was placed prone on the table in the cc view. The on fast view demonstrates actually 2 separate areas of clustered calcifications by several centimeters. I elected after discussion with the patient to target on each and sample each. The breast was prepped with Betadine. 1% lidocaine was used as a local anesthetic. Throughout both procedures a total of 15 cc were used. A small stab incision was created. An 8 gauge resolved needle was advanced to prefire depth for #1. Device was fired. 4 cores were obtained. 2 of the cores had microcalcifications very much consistent with the lesion. A ribbon clip was placed at this more medial central site. On fast view demonstrated absence of the previous calcifications at that site and placement of the ribbon. We changed the resolve needle and guide. Repeat stereotactic images and repeat localization for lesion #2 were performed. A small stab incision was created. The EKG resolved needle was advanced to prefire depth. Prefire films were obtained demonstrating good localization. The device was fired and 6 cores were obtained. Specimen mammograms again demonstrated microcalcifications present within the specimens very much consistent with the lesion in question. A dumbbell marking clip was left in position. She was released from the device and pressure was held for hemostasis. Steri-Strips Telfa and OpSite dressings applied. For each of the biopsies the specimens were immediately placed in formalin for analysis. The #1 area was felt to be the mid central left breast more medially placed and the #2 area mid central left breast more laterally placed. She was given activity wound care instructions. She will be notified of pathology as a become available. Specimens core specimens. Drains none. Blood loss minimal Jamari Montero M.D., F.A.C.S. Type of Anesthesia:: Local
== END | disposition home or self-care (01) ==
LOC: BIRAD 10:21
PROVIDERS: Family Provider Internal Medicine; PCP Internal Medicine; Referring Provider Surgery; Visit Provider Surgery
DX: D24.2 Benign neoplasm of left breast (principal); N60.42 Mammary duct ectasia of left breast; R92.8 Other abnormal and inconclusive findings on diagnostic imaging of breast; I10 Essential (primary) hypertension; M06.9 Rheumatoid arthritis, unspecified; Z79.82 Long term (current) use of aspirin; Z79.899 Other long term (current) drug therapy; Z87.891 Personal history of nicotine dependence; Z85.038 Personal history of other malignant neoplasm of large intestine
CPT/HCPCS: 19081; 19082; 88305; J7050; A4648

== ENCOUNTER → 2019-05-03 10:07 | Outpatient (CLI) | payer MEDICARE, BC, SELFPAY ==
[2019-04-05 14:50] VITALS: BMI 35.7
[2019-05-03 12:29] LABS: Absolute Lymphocyte Count 1.73 X10^3/uL (0.83-4.51); Absolute Neutrophil Count 2.6 X10^3/uL (2.0-7.7); Basophil# 0.04 X10^3/uL; Basophil% 0.8 % (0-1); Eosinophil# 0.46 X10^3/uL; Eosinophils% 8.8 % (0-5); Hematocrit 38.9 % (37-47); Hemoglobin 12.9 g/dL (12.0-15.0); Lymphocyte # 1.73 X10^3/ul (4.0); Lymphocyte % 33.3 % (19-41); Mean Corp Hgb Conc 33.2 g/dL (32-36); Mean Corpuscular Hgb 30.6 pg (27.0-32.0); Mean Corpuscular Volume 92.4 fL (81-99); Mean Platelet Vol. 9.7 fl (6.2-12.0); Monocyte# 0.39 X10^3/uL; Monocyte% 7.5 % (0-10); NRBC Flagged by Analyzer 0 % (0-5); Neutrophil # 2.57 X10^3/uL (2.7-7.7); Neutrophil % 49.4 % (47-70); Platelet Count 267 K/mm3 (150-450); RBC Distribution Width CV 13.9 % (11.6-14.6); RBC Distribution Width SD 46.7 fl (35.1-43.9); Red Blood Count 4.21 M/mm3 (4.2-5.4); White Blood Count 5.2 K/mm3 (4.4-11.0)
[2019-05-03 12:49] LABS: ALB/GLOB Ratio 0.9 RATIO (0.9-2.4); AST(SGOT) 22 U/L (15-37); Alanine Aminotransfer ALT/SGPT 23 U/L (13-56); Albumin, Serum 3.3 g/dL (3.2-5.0); Alkaline Phosphatase 97 U/L (45-117); Anion Gap 6 (5-15); BUN 11 mg/dL (7-18); BUN/Creat Ratio 11.1 RATIO (10-20); Calcium,Total 8.7 mg/dL (8.5-10.1); Chloride 106 mmol/L (98-107); Creatinine, Serum 0.99 mg/dL (0.55-1.02); EST Glomerular Filtration Rate 58 mL/min (>60); Est Glom Filt Rate - Afr Amer 70 mL/min (>60); Globulin 3.7 g/dL (2.2-4.2); Glucose 98 mg/dL (74-106); Sodium Level 139 mmol/L (136-145)
== END ==
PROVIDERS: Family Provider Internal Medicine; PCP Internal Medicine; Referring Provider Internal Medicine Rheumatology; Visit Provider Internal Medicine Rheumatology
DX: M06.00 Rheumatoid arthritis without rheumatoid factor, unspecified site (principal); M65.352 Trigger finger, left little finger; M18.0 Bilateral primary osteoarthritis of first carpometacarpal joints; M17.0 Bilateral primary osteoarthritis of knee; K21.9 Gastro-esophageal reflux disease without esophagitis; M47.892 Other spondylosis, cervical region; E11.9 Type 2 diabetes mellitus without complications; Z79.899 Other long term (current) drug therapy
CPT/HCPCS: 36415; 80053; 85025

== ENCOUNTER → 2019-07-26 | Outpatient (CLI) | payer MEDICARE, BC, SELFPAY ==
[2019-04-05 14:50] VITALS: BMI 35.7
[2019-07-26 12:22] LABS: Absolute Lymphocyte Count 1.85 X10^3/uL (0.83-4.51); Absolute Neutrophil Count 4.7 X10^3/uL (2.0-7.7); Basophil# 0.05 X10^3/uL; Basophil% 0.7 % (0-1); Eosinophil# 0.37 X10^3/uL; Eosinophils% 4.9 % (0-5); Hematocrit 40.1 % (37-47); Lymphocyte # 1.85 X10^3/ul (4.0); Lymphocyte % 24.7 % (19-41); Mean Corp Hgb Conc 32.4 g/dL (32-36); Mean Corpuscular Hgb 30.4 pg (27.0-32.0); Mean Corpuscular Volume 93.9 fL (81-99); Mean Platelet Vol. 9.6 fl (6.2-12.0); Monocyte# 0.49 X10^3/uL; Monocyte% 6.5 % (0-10); NRBC Flagged by Analyzer 0 % (0-5); Neutrophil # 4.71 X10^3/uL (2.7-7.7); Neutrophil % 62.8 % (47-70); Platelet Count 278 K/mm3 (150-450); RBC Distribution Width CV 13.7 % (11.6-14.6); RBC Distribution Width SD 46.8 fl (35.1-43.9); Red Blood Count 4.27 M/mm3 (4.2-5.4); White Blood Count 7.5 K/mm3 (4.4-11.0)
[2019-07-26 12:45] LABS: AST(SGOT) 28 U/L (15-37); Alanine Aminotransfer ALT/SGPT 27 U/L (13-56); Albumin, Serum 3.7 g/dL (3.2-5.0); Alkaline Phosphatase 78 U/L (45-117); Anion Gap 6 (5-15); BUN 14 mg/dL (7-18); BUN/Creat Ratio 14.6 RATIO (10-20); Calcium,Total 8.9 mg/dL (8.5-10.1); Chloride 109 mmol/L (98-107); Creatinine, Serum 0.96 mg/dL (0.55-1.02); EST Glomerular Filtration Rate 60 mL/min (>60); Est Glom Filt Rate - Afr Amer 73 mL/min (>60); Globulin 3.6 g/dL (2.2-4.2); Glucose 80 mg/dL (74-106); Potassium 4.1 mmol/L (3.5-5.1); Protein, Total 7.3 g/dL (6.4-8.2); Sodium Level 142 mmol/L (136-145)
== END | disposition home or self-care (01) ==
LOC: MTLAB 11:13
PROVIDERS: Family Provider Internal Medicine; PCP Internal Medicine; Referring Provider Internal Medicine Rheumatology; Visit Provider Internal Medicine Rheumatology
DX: M06.00 Rheumatoid arthritis without rheumatoid factor, unspecified site (principal); Z79.899 Other long term (current) drug therapy; M65.352 Trigger finger, left little finger; M18.0 Bilateral primary osteoarthritis of first carpometacarpal joints; M17.0 Bilateral primary osteoarthritis of knee; K21.9 Gastro-esophageal reflux disease without esophagitis; M47.892 Other spondylosis, cervical region; E11.9 Type 2 diabetes mellitus without complications
CPT/HCPCS: 36415; 80053; 85025

== ENCOUNTER → 2019-08-13 06:46 | Outpatient (CLI) | payer MEDICARE, BC, SELFPAY ==
[2019-04-05 14:50] VITALS: BMI 35.7
--- NOTE | 2019-08-13 15:49 | NEURO ---
NCS and/or EMG Patient Report HPI: Patient a 74-year-old female who presented with bilateral hand numbness, tingling and pain for more than 6 months. Patient is right-hand dominant but symptoms are worse in the left hand. Over past month they have been waking her up in night. Patient is not getting much relief from both hand braces. As per patient, driving is painful. Patient does not have history of diabetes or neck injuries. Patient denies neck pain or radiating pain in the arms. Patient has a history of rheumatoid arthritis and osteoarthritis. Physical Exam: Tenderness in bilateral anterior wrist areas. Tinel's sign positive at right and left wrist. Decreased sensation to light touch in bilateral distal hand fingers. Mild weakness of the finger flexors and abductors in both hands. Findings: 1. There is evidence of prolongation of distal latencies of right and left median sensory nerve responses. 2. There is prolongation of distal latency of left ulnar sensory nerve response. 3. There is prolongation of the distal latencies of left median motor nerve response. 4. Needle examination of the right and left upper extremities showed increased amplitude motor unit action potential in the left abductor pollicis brevis muscle otherwise normal. Impression: 1. 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 2. Findings are also consistent with mild left ulnar sensory neuropathy. Recommendation: 1. Patient recommended to wear both hand and elbow splints as much as possible 2. Patient recommended to avoid repetitive hand movements, heavy lifting and leaning or sleeping on elbows. 3. Patient may need surgical release of left hand carpal tunnel syndrome if symptoms continues.
== END ==
PROVIDERS: Family Provider Internal Medicine; PCP Internal Medicine; Referring Provider Internal Medicine Rheumatology; Visit Provider Internal Medicine Rheumatology
DX: M06.00 Rheumatoid arthritis without rheumatoid factor, unspecified site (principal); Z79.899 Other long term (current) drug therapy; M65.352 Trigger finger, left little finger; M18.0 Bilateral primary osteoarthritis of first carpometacarpal joints; M17.0 Bilateral primary osteoarthritis of knee; K21.9 Gastro-esophageal reflux disease without esophagitis; M47.892 Other spondylosis, cervical region; E11.9 Type 2 diabetes mellitus without complications; R20.0 Anesthesia of skin
CPT/HCPCS: 95886; 95911

== ENCOUNTER → 2019-10-27 08:10 | Outpatient (CLI) | payer MEDICARE, BC, SELFPAY ==
[2019-04-05 14:50] VITALS: BMI 35.7
[2019-10-27 10:08] LABS: Absolute Lymphocyte Count 2.53 X10^3/uL (0.83-4.51); Absolute Neutrophil Count 5.8 X10^3/uL (2.0-7.7); Basophil# 0.04 X10^3/uL; Basophil% 0.4 % (0-1); Eosinophil# 0.23 X10^3/uL; Eosinophils% 2.5 % (0-5); Hematocrit 40.3 % (37-47); Hemoglobin 13.3 g/dL (12.0-15.0); Lymphocyte # 2.53 X10^3/ul (4.0); Lymphocyte % 27.2 % (19-41); Mean Corpuscular Hgb 30.1 pg (27.0-32.0); Mean Corpuscular Volume 91.2 fL (81-99); Mean Platelet Vol. 9.6 fl (6.2-12.0); Monocyte# 0.62 X10^3/uL; Monocyte% 6.7 % (0-10); NRBC Flagged by Analyzer 0 % (0-5); Neutrophil # 5.84 X10^3/uL (2.7-7.7); Neutrophil % 62.8 % (47-70); Platelet Count 300 K/mm3 (150-450); RBC Distribution Width CV 12.8 % (11.6-14.6); RBC Distribution Width SD 42.5 fl (35.1-43.9); Red Blood Count 4.42 M/mm3 (4.2-5.4); White Blood Count 9.3 K/mm3 (4.4-11.0)
[2019-10-27 10:31] LABS: ALB/GLOB Ratio 0.9 RATIO (0.9-2.4); AST(SGOT) 19 U/L (15-37); Alanine Aminotransfer ALT/SGPT 23 U/L (13-56); Albumin, Serum 3.5 g/dL (3.2-5.0); Alkaline Phosphatase 91 U/L (45-117); Anion Gap 3 (5-15); BUN 22 mg/dL (7-18); BUN/Creat Ratio 19.1 RATIO (10-20); Calcium,Total 9.4 mg/dL (8.5-10.1); Chloride 106 mmol/L (98-107); Creatinine, Serum 1.15 mg/dL (0.55-1.02); EST Glomerular Filtration Rate 49 mL/min (>60); Est Glom Filt Rate - Afr Amer 59 mL/min (>60); Globulin 3.9 g/dL (2.2-4.2); Glucose 74 mg/dL (74-106); Potassium 3.8 mmol/L (3.5-5.1); Protein, Total 7.4 g/dL (6.4-8.2); Sodium Level 139 mmol/L (136-145)
== END ==
PROVIDERS: PCP Internal Medicine; Referring Provider Internal Medicine Rheumatology; Visit Provider Internal Medicine Rheumatology
DX: M06.00 Rheumatoid arthritis without rheumatoid factor, unspecified site (principal); G56.03 Carpal tunnel syndrome, bilateral upper limbs; K21.9 Gastro-esophageal reflux disease without esophagitis; E11.9 Type 2 diabetes mellitus without complications; M65.352 Trigger finger, left little finger; M18.0 Bilateral primary osteoarthritis of first carpometacarpal joints; M17.0 Bilateral primary osteoarthritis of knee; M47.892 Other spondylosis, cervical region; Z79.899 Other long term (current) drug therapy
CPT/HCPCS: 36415; 80053; 85025

== ENCOUNTER 2019-12-24 06:10 | Emergency (ER) | payer MEDICARE, BC, SELFPAY ==
[2019-04-05 14:50] VITALS: BMI 35.7
[2019-12-24 06:11] VITALS: BP 134/52; PULSE 63; RESP 18; TEMP 36.8; O2SAT 97; BMI 36.8
--- NOTE | 2019-12-24 06:15 | RAD_ITS ---
STUDY: X-RAY - LEFT WRIST REASON FOR EXAM: Fell. TECHNIQUE: 3 view(s) of the wrist were obtained. COMPARISON: None. FINDINGS: There is a fracture of the distal radius displaced dorsally approximately 1 bone width. Normal radiocarpal articulation. Normal distal radioulnar articulation. Normal carpal bones. Normal carpal articulations. Normal carpometacarpal articulation of the thumb. Normal second through fifth carpometacarpal articulations. Normal visualized metacarpal bones. There is soft tissue swelling. RAD/Wrist min 3 Views IMPRESSION: Displaced distal radial fracture. Electronically Signed: Sunil Dela Cruz MD at 7:28 EDT Tel , Service support ,
--- NOTE | 2019-12-24 06:16 | ED.DCSUM_ITS ---
History of Present Illness Chief Complaint: Upper Extremity Injury Informant: Patient Onset: Today Context: Sudden Onset Timing: Continuous Current Severity: Moderate Maximum Severity: Moderate Narrative: The patient is a 74-year-old female with medical history significant for rheumatoid arthritis who is on Plaquenil and methotrexate that presents to the emergency department with left wrist injury. The patient states that she was hurrying to help her get dressed this morning. She lost her balance and fell. She tried to catch herself with an outstretched left hand. She had immediate pain in her left wrist. She denies striking her head or losing consciousness. She is not on anticoagulants. She denies other injury. She denies any numbness or tingling in the hand. Prior similar symptoms: No Recent Illness/Hospitalization: No Past Medical History - Allergies and Home Meds Allergies/Adverse Reactions: Allergies Penicillins [PCN] Allergy (Verified 04/05/19 14:47) Rash Sulfa (Sulfonamide Antibiotics) Allergy (Verified 04/05/19 14:47) Rash azithromycin [From Zithromax] Adverse Reaction (Verified 04/05/19 14:47) Nausea/Vom/Diarrhea codeine Adverse Reaction (Verified 04/05/19 14:47) Other VISION PROBLEMS hydrochlorothiazide Adverse Reaction (Verified 12/24/19 07:14) Rash nitroglycerin [From Nitroglyn] Adverse Reaction (Verified 04/05/19 14:47) Other Primary Care Physician: Jesus Ballard MD [Primary Care Provider] - Prior records reviewed: Yes Past Medical History: - - Rheumatoid arthritis, hypertension, high cholesterol Surgical History: herniorrhaphy, - Smoking Status: Former smoker - Family History Maternal Family History: Family History (Last Updated 04/05/19 @ 14:46 by Liza Rodriguez) Sister Diabetes Asthma Hypertension Brother Heart disease Hypertension Family History: Reports: No pertinent history Paternal Family History: Family History (Last Updated 04/05/19 @ 14:46 by Liza Rodriguez) Sister Diabetes Asthma Hypertension Brother Heart disease Hypertension Family History: Reports: No pertinent history Review of Systems General: Denies: Chills, Fever, Sweats Eyes: Denies: Visual changes - bilaterally, Diplopia ENT: Denies: Rhinorrhea, Sore throat Cardiovascular: Denies: Chest pain, Palpitations Respiratory: Denies: Dyspnea, Cough, Dyspnea on exertion Gastrointestinal: Denies: Abdominal pain, Nausea, Vomiting, Diarrhea, Melena, Hematochezia Genitourinary: Denies: Dysuria, Hematuria, Frequency Musculoskeletal: Denies: Back pain, Extremity Pain Skin: Denies: Rash, Wounds Neurological: Denies: Headache, Weakness, Numbness Physical Exam Inital Vital Signs reviewed: Yes General: Well nourished, Well developed, No Acute Distress Head: Normocephalic, Atraumatic Eyes: Perrl, EOMI ENT: Moist mucous membranes, No rhinorrhea Neck: Supple, Nontender Cardiovascular: Regular rate, Regular rhythm, No murmurs Respiratory: No distress, CTA bilaterally, Chest nontender Abdomen: Soft, Nontender, Nondistended, Normal bowel sounds Back: Nontender, Normal Inspection Extremities: Tenderness - Patient has obvious deformity of the left wrist. Normal pulses. Skin: Normal color, No rash Neurological: Alert, Oriented x3, Cranial nerves II-XII grossly intact, Normal Strength, Normal Sensation Psychological: Normal affect, Normal Mood Diagnostic/Tx/Re-eval Clinical Impression(s) from Imaging Studies Wrist X-Ray 12/24/19 06:15 IMPRESSION: Displaced distal radial fracture. Electronically Signed: Sunil Dela Cruz MD at 7:28 EDT Tel , Service support , - Medical Decision Making The patient presents with mechanical fall. She does have obvious deformity of the left wrist. There is a small puncture wound over the styloid process of the ulna. X-rays do demonstrate displaced fracture. The patient was given Ancef. I discussed her case with Dr. Bassam Ovalle, on-call for orthopedics. He recommended transfer to a tertiary facility. The patient requested [facility]. Transfer was arranged. Impression 1. Left open distal radius fracture ED Disposition - Plan for ED Patient: Disposition: [facility] Referrals: Jesus Ballard MD [Primary Care Provider] -
[2019-12-24] MEDS: Morphine 4 MG/ML Syringe IV ×2 (06:45→09:11)
[2019-12-24] MEDS: Cefazolin 1 GM/50 ML BAG IV (06:46)
[2019-12-24] MEDS: Ondansetron 4 MG/2 ML Vial IV (06:46)
--- NOTE | 2019-12-24 07:20 | NURSING ---
FAXED FACESHEET TO [facility]
--- NOTE | 2019-12-24 07:47 | ED.DCSUM_ITS ---
- ER Visit Summary Date of Service: 12/24/19 The patient was checked out to me with transfer to [facility] pending. Test Results: Clinical Impression(s) from Imaging Studies Wrist X-Ray 12/24/19 06:15 IMPRESSION: Displaced distal radial fracture. Electronically Signed: Sunil Dela Cruz MD at 7:28 EDT Tel , Service support , Emergency Department Course and Treatment: Patient was given dose of Ancef IV. She was given morphine for pain. She was placed in a volar Ortho-Glass splint. She is resting comfortably. Treatment Plan: The patient was discussed with Dr. Bassam Ovalle who asked that she be transferred to a tertiary care center. She was discussed with Dr. Peng at [facility], her hospital of choice, who is accepted her. Disposition: Transferred in improved and stable condition. Impression: 1. Open Colles' fracture on the left. 2. Ortho-Glass volar splint, fabricated. This note was generated with [employer]orph[employer] dictation software. It may contain incorrect words, spelling, and punctuation that were not noted in review of the chart prior to signing ED Disposition - Plan for ED Patient: Referrals: Jesus Ballard MD [Primary Care Provider] -
[2019-12-24 07:49] VITALS: BP 134/52; PULSE 63; RESP 18; TEMP 36.8
--- NOTE | 2019-12-24 07:55 | NURSING ---
ACCEPTED AT [facility] [address] H6 ROOM 6639 NURSE TO NURSE [phone]
--- NOTE | 2019-12-24 08:01 | NURSING ---
CALLED [facility]. ETA IS 90 MIN
[2019-12-24 09:00] VITALS: BP 174/80; PULSE 67; RESP 16; O2SAT 97
== END 2019-12-24 09:21 | disposition short-term general hospital (02) ==
LOC: ED 07:04
PROVIDERS: Emergency Provider Emergency Medicine; PCP Internal Medicine
DX: S52.502B Unspecified fracture of the lower end of left radius, initial encounter for open fracture type I or II (principal); S52.532A Colles' fracture of left radius, initial encounter for closed fracture; M06.9 Rheumatoid arthritis, unspecified; I10 Essential (primary) hypertension; W18.30XA Fall on same level, unspecified, initial encounter; Z79.82 Long term (current) use of aspirin; Z87.891 Personal history of nicotine dependence
CPT/HCPCS: 29125; 73110; 96365; 96368; 96375; 99284; J7050; A4216; J2405

== ENCOUNTER → 2020-01-10 07:43 | Outpatient (CLI) | payer MEDICARE, BC, SELFPAY ==
[2019-12-24 06:11] VITALS: BMI 36.8
[2020-01-10 09:54] LABS: Absolute Lymphocyte Count 2.13 X10^3/uL (0.83-4.51); Basophil# 0.05 X10^3/uL; Basophil% 0.7 % (0-1); Eosinophil# 0.36 X10^3/uL; Eosinophils% 5.1 % (0-5); Hematocrit 37.7 % (37-47); Hemoglobin 12.3 g/dL (12.0-15.0); Lymphocyte # 2.13 X10^3/ul (4.0); Lymphocyte % 30.1 % (19-41); Mean Corp Hgb Conc 32.6 g/dL (32-36); Mean Corpuscular Hgb 30.1 pg (27.0-32.0); Mean Corpuscular Volume 92.4 fL (81-99); Mean Platelet Vol. 9.8 fl (6.2-12.0); Monocyte# 0.56 X10^3/uL; Monocyte% 7.9 % (0-10); NRBC Flagged by Analyzer 0 % (0-5); Neutrophil # 3.95 X10^3/uL (2.7-7.7); Neutrophil % 55.9 % (47-70); Platelet Count 317 K/mm3 (150-450); RBC Distribution Width CV 14.3 % (11.6-14.6); Red Blood Count 4.08 M/mm3 (4.2-5.4); White Blood Count 7.1 K/mm3 (4.4-11.0)
[2020-01-10 10:12] LABS: AST(SGOT) 23 U/L (15-37); Alanine Aminotransfer ALT/SGPT 22 U/L (13-56); Albumin, Serum 3.6 g/dL (3.2-5.0); Alkaline Phosphatase 87 U/L (45-117); Anion Gap 6 (5-15); BUN 15 mg/dL (7-18); BUN/Creat Ratio 15.7 RATIO (10-20); Chloride 105 mmol/L (98-107); Creatinine, Serum 0.96 mg/dL (0.55-1.02); EST Glomerular Filtration Rate 60 mL/min (>60); Est Glom Filt Rate - Afr Amer 73 mL/min (>60); Globulin 3.6 g/dL (2.2-4.2); Glucose 89 mg/dL (74-106); Potassium 3.8 mmol/L (3.5-5.1); Protein, Total 7.2 g/dL (6.4-8.2); Sodium Level 139 mmol/L (136-145)
== END ==
PROVIDERS: PCP Internal Medicine; Referring Provider Internal Medicine Rheumatology; Visit Provider Internal Medicine Rheumatology
DX: M06.00 Rheumatoid arthritis without rheumatoid factor, unspecified site (principal); G56.03 Carpal tunnel syndrome, bilateral upper limbs; M65.352 Trigger finger, left little finger; M18.0 Bilateral primary osteoarthritis of first carpometacarpal joints; M17.0 Bilateral primary osteoarthritis of knee; K21.9 Gastro-esophageal reflux disease without esophagitis; M47.892 Other spondylosis, cervical region; E11.9 Type 2 diabetes mellitus without complications; Z79.899 Other long term (current) drug therapy
CPT/HCPCS: 36415; 80053; 85025

== ENCOUNTER 2020-03-12 19:38 | Inpatient (IN) | payer MEDICARE, BC, SELFPAY ==
[2020-03-12 19:41] VITALS: BP 160/94; PULSE 87; RESP 12; TEMP 36.4; O2SAT 97; BMI 35.3
--- NOTE | 2020-03-12 19:54 | CT_ITS ---
HISTORY: DIFFUSE ABDOMEN PAIN AND NAUSEA, elevated wbc hx:htn,gerd,hld,colon cancer Hx:hernia repair, bowel resection, c-sections ADDITIONAL HISTORY: None provided. TECHNIQUE: CT images were obtained of the abdomen and pelvis with 100mL Isovue-370 IV contrast. Enteric contrast was given. A radiation dose optimization technique was used for this scan. Number of images including paperwork: 422 COMPARISON: 10/20/2015 FINDINGS: LOWER THORAX: No consolidation or pleural effusion. Minimal basilar atelectasis. Small hiatal hernia. Coronary calcification. LIVER: No concerning focal lesion. GALLBLADDER: No radiopaque calculi. BILE DUCTS: No significant biliary dilatation. SPLEEN: Unremarkable. PANCREAS: Unremarkable. ADRENAL GLANDS: Unremarkable. KIDNEYS/URETERS: Unremarkable. BOWEL: Multiple dilated loops of small bowel with transition point in the mid abdomen, series 2 images 65 through 72. Minimal mesenteric edema. Anastomosis noted in the rectal region. Small to moderate amount of residual colonic stool. Minimal colonic diverticulosis. APPENDIX: Normal. FREE FLUID: Trace free fluid. FREE AIR: None. LYMPH NODES: No pathologic appearing adenopathy. PERITONEUM, RETROPERITONEUM AND MESENTERY: Otherwise unremarkable. VASCULATURE: Atherosclerotic calcification. PELVIS: Unremarkable bladder. No pelvic mass. ABDOMINAL WALL: Ventral hernia repair with mesh. OSSEOUS AND SOFT TISSUE STRUCTURES: No acute skeletal findings. Degenerative changes. CT/Abdomen/Pelvis WITH Contrast IMPRESSION: Small bowel obstruction. Individualized dose optimization techniques were used for this CT. at 2255 Reported and signed by: Jennifer Faria MD Electronically Signed: Jennifer Faria MD at 22:54 EDT Tel , Service support ,
--- NOTE | 2020-03-12 19:57 | ED.VIS.GI ---
History of Present Illness Chief Complaint: Constipation Informant: Patient - Abdominal Pain/Flank Pain Onset: Hours - 6 Context: Gradual Onset Timing: Continuous Quality: Aching Location: Diffuse - more in lower abd Current Severity: Moderate Maximum Severity: Moderate Worsened by: Nothing Relieved by: Nothing - Nausea/Vomiting/Emesis GI Symptom: Nausea. Negative for: Vomiting - Diarrhea/Melena/Hematochezia GI Symptom: - - Last bowel movement today, 3 or 4 hours prior to onset of pain, and was unremarkable. Negative for: Diarrhea, Melena, Hematochezia Associated Symptoms: Negative for: Dysuria, Frequency, Hematuria, Urgency Narrative: Patient had a history of colon cancer and had a partial colectomy, since then she has had a couple of bowel obstructions and thinks this may be similar, she presents early to try to rule this out, in hopes that she can return home and continue caring for her . She has never had have surgery for bowel obstruction. Prior similar symptoms: Yes - bowel obstruction - Past Medical History (1) History of colon cancer Status: Chronic (2) Hypertension Status: Chronic (3) Rheumatoid arthritis Status: Chronic Past Medical History - Allergies and Home Meds Allergies/Adverse Reactions: Allergies Penicillins [PCN] Allergy (Verified 03/12/20 19:38) Rash Sulfa (Sulfonamide Antibiotics) Allergy (Verified 03/12/20 19:38) Rash azithromycin [From Zithromax] Adverse Reaction (Verified 03/12/20 19:38) Nausea/Vom/Diarrhea codeine Adverse Reaction (Verified 03/12/20 19:38) Other VISION PROBLEMS hydrochlorothiazide Adverse Reaction (Verified 03/12/20 19:38) Rash nitroglycerin [From Nitroglyn] Adverse Reaction (Verified 03/12/20 19:38) Other Primary Care Physician: Jesus Ballard MD [Primary Care Provider] - Surgical History: herniorrhaphy, - - Partial colectomy Lives: Spouse/ Significant Other Smoking Status: Former smoker - Family History Maternal Family History: Family History (Last Updated 04/05/19 @ 14:46 by Liza Rodriguez) Sister Diabetes Asthma Hypertension Brother Heart disease Hypertension Family History: Reports: No pertinent history Paternal Family History: Family History (Last Updated 04/05/19 @ 14:46 by Liza Rodriguez) Sister Diabetes Asthma Hypertension Brother Heart disease Hypertension Family History: Reports: No pertinent history Review of Systems General: Denies: Chills, Fever, Sweats Eyes: Denies: Visual changes - bilaterally, Diplopia ENT: Denies: Rhinorrhea, Sore throat Cardiovascular: Denies: Chest pain, Palpitations Respiratory: Denies: Dyspnea, Cough, Dyspnea on exertion Gastrointestinal: Reports: Abdominal pain, Nausea. Denies: Vomiting, Diarrhea, Melena, Hematochezia Genitourinary: Denies: Dysuria, Hematuria, Frequency Musculoskeletal: Denies: Back pain, Swelling, Extremity Pain Skin: Denies: Rash, Wounds Neurological: Denies: Headache, Weakness, Numbness Physical Exam Vital Signs/Narrative: Vital Signs Temp Pulse Resp BP Pulse Ox 03/12/20 19:41 97.6 F L 87 12 160/94 H 97 Inital Vital Signs reviewed: Yes General: Well nourished, Well developed, No Acute Distress Head: Normocephalic, Atraumatic Eyes: Perrl, EOMI ENT: Moist mucous membranes, No rhinorrhea Neck: Supple, Nontender Cardiovascular: Regular rate, Regular rhythm, No murmurs Respiratory: No distress, CTA bilaterally, Chest nontender Abdomen: Soft, Nondistended, No masses, Tender - Throughout lower abdomen, Hypoactive bowel sounds. Negative for: Guarding, Rebound tenderness Back: Nontender, Normal Inspection Extremities: Nontender, No edema. Negative for: Calf Tenderness Skin: Normal color, No rash, No Trauma Neurological: Alert, Oriented x3, Cranial nerves II-XII grossly intact, Normal Strength, Normal Sensation, Normal Gait Psychological: Normal affect, Normal Mood Diagnostic/Tx/Re-eval Impressions Abdomen/Pelvis CT 03/12/20 19:54 IMPRESSION: Small bowel obstruction. Individualized dose optimization techniques were used for this CT. at 2255 Reported and signed by: Jennifer Faria MD Electronically Signed: Jennifer Faria MD at 22:54 EDT Tel , Service support , 03/12/20 19:54 Abdomen/Pelvis WITH Contrast [CT] Stat 03/12/20 23:01 Abdomen Single View (Portable) [RAD] Stat Laboratory Results 03/12/20 03/12/20 03/12/20 20:00 20:00 20:41 WBC 12.8 H RBC 4.45 Hgb 13.4 Hct 40.9 MCV 91.9 MCH 30.1 MCHC 32.8 RDW Std Deviation 48.2 H RDW Coeff of Unique 14.3 Plt Count 338 MPV 9.3 Immature Gran % (Auto) 0.500 Neut % (Auto) 75.5 H Lymph % (Auto) 16.2 L [place] % (Auto) 4.7 Eos % (Auto) 2.8 Baso % (Auto) 0.3 Absolute Neuts (auto) 9.6 H Absolute Lymphs (auto) 2.07 Nucleated RBC % 0 Sodium 137 Potassium 4.0 Chloride 104 Carbon Dioxide 27.0 Anion Gap 6 BUN 19 H Creatinine 1.13 H Estim Creat Clear Calc 39.65 Est GFR (MDRD) Af Amer 60 Est GFR (MDRD) Non-Af 50 L BUN/Creatinine Ratio 16.8 Glucose 117 H Calcium 9.4 Total Bilirubin 0.50 AST 28 ALT 25 Alkaline Phosphatase 91 Total Protein 7.4 Albumin 3.7 Globulin 3.7 Albumin/Globulin Ratio 1.0 Lipase 55 L Urine Color Straw Urine Clarity Clear Urine pH 6.0 Ur Specific [place] 1.010 Urine Protein Negative Urine Glucose (UA) Normal Urine Ketones Negative Urine Occult Blood 10 H Urine Nitrite Negative Urine Bilirubin Negative Urine Urobilinogen Normal Ur Leukocyte Esterase 25 H Urine RBC 0 SEEN Urine WBC 0-5 SEEN Ur Squamous Epith Cells 0-5 SEEN Ur Renal Epithelial Cell 0-5 SEEN Urine Bacteria 1+ Urine Mucus 0 SEEN - Medical Decision Making CT consistent with bowel obstruction. NG will be ordered, she is requiring repeat doses of analgesics and antinausea medication, will discuss with surgery and medicine but plan is to admit to medical surgical floor. She has never required surgical intervention for obstructions in the past and has resolved with nonsurgical supportive care and time. ED Disposition - Plan for ED Patient: Disposition: [facility] Diagnosis: Small bowel obstruction Referrals: Jesus Ballard MD [Primary Care Provider] -
[2020-03-12] MEDS: Ondansetron 4 MG/2 ML Vial IV (20:05)
[2020-03-12] MEDS: Morphine 2 MG/ML Syringe IV ×2 (20:05→23:01)
[2020-03-12 20:07] LABS: Absolute Lymphocyte Count 2.07 X10^3/uL (0.83-4.51); Absolute Neutrophil Count 9.6 X10^3/uL (2.0-7.7); Basophil# 0.04 X10^3/uL; Basophil% 0.3 % (0-1); Eosinophil# 0.36 X10^3/uL; Eosinophils% 2.8 % (0-5); Hematocrit 40.9 % (37-47); Hemoglobin 13.4 g/dL (12.0-15.0); Lymphocyte # 2.07 X10^3/ul (4.0); Lymphocyte % 16.2 % (19-41); Mean Corp Hgb Conc 32.8 g/dL (32-36); Mean Corpuscular Hgb 30.1 pg (27.0-32.0); Mean Corpuscular Volume 91.9 fL (81-99); Mean Platelet Vol. 9.3 fl (6.2-12.0); Monocyte% 4.7 % (0-10); NRBC Flagged by Analyzer 0 % (0-5); Neutrophil # 9.63 X10^3/uL (2.7-7.7); Neutrophil % 75.5 % (47-70); Platelet Count 338 K/mm3 (150-450); RBC Distribution Width CV 14.3 % (11.6-14.6); RBC Distribution Width SD 48.2 fl (35.1-43.9); Red Blood Count 4.45 M/mm3 (4.2-5.4); White Blood Count 12.8 K/mm3 (4.4-11.0)
[2020-03-12] MEDS: 0.9% Normal Saline 1,000 ML 1000 ML IV (20:09)
[2020-03-12 20:30] LABS: AST(SGOT) 28 U/L (15-37); Alanine Aminotransfer ALT/SGPT 25 U/L (13-56); Albumin, Serum 3.7 g/dL (3.2-5.0); Alkaline Phosphatase 91 U/L (45-117); Anion Gap 6 (5-15); BUN 19 mg/dL (7-18); BUN/Creat Ratio 16.8 RATIO (10-20); Calcium,Total 9.4 mg/dL (8.5-10.1); Chloride 104 mmol/L (98-107); Creatinine, Serum 1.13 mg/dL (0.55-1.02); EST Glomerular Filtration Rate 50 mL/min (>60); Est Glom Filt Rate - Afr Amer 60 mL/min (>60); Estimated Creatinine Clearance 39.65 ml/min; Globulin 3.7 g/dL (2.2-4.2); Glucose 117 mg/dL (74-106); Lipase 55 U/L (73-393); Protein, Total 7.4 g/dL (6.4-8.2); Sodium Level 137 mmol/L (136-145)
[2020-03-12 20:48] LABS: Mucous, Urine 0 SEEN /hpf (<or=2+); Red Blood Cells-Urine 0 SEEN /hpf (0-5)
[2020-03-12 20:49] LABS: Color, Urine Straw (Yellow); Glucose, Dipstick Normal (Normal); Ketone-Dipstick Negative (Negative); Leukocyte Esterase-Dipstick 25 /ul (Negative); Nitrite-Dipstick Negative (Negative); Occult Blood-Urine 10 /ul (Negative); Protein-Dipstick Negative (Negative); Urine Bilirubin Dipstick Negative (Negative); Urine Clarity Clear (Clear); Urine Urobilinogen Normal (Normal)
[2020-03-12 20:57] LABS: Bacteria 1+ /hpf (None Seen); Renal Epithelial Cells 0-5 SEEN /hpf (0-5); Squamous Epithelial Cells - UA 0-5 SEEN /hpf (5-10); White Blood Cells 0-5 SEEN /hpf (0-5)
--- NOTE | 2020-03-12 23:01 | RAD_ITS ---
HISTORY: NG TUBE PLACEMENT ADDITIONAL HISTORY: None. COMPARISON: CT 03/12/2020 Technique: Supine abdominal radiograph(s) Number of images including paperwork: 1 FINDINGS: FREE AIR: None detected. BOWEL GAS PATTERN: Grossly unremarkable in the visible extent. CALCIFICATIONS: No definite urinary tract calculi. ORGANS: No evidence of organomegaly. Renal excretory contrast from recent CT. SOFT TISSUES: Unremarkable. BONES: No acute skeletal findings. DEVICES: Gastric tube tip and side-port of the stomach. RAD/Abdomen Single View (Portable) IMPRESSION: Gastric tube in place. at 0003 Reported and signed by: Jennifer Faria MD Electronically Signed: Jennifer Faria MD at 0:03 EDT Tel , Service support ,
[2020-03-12] MEDS: Metoclopramide 10 MG/2 ML Vial 5 MG IV (23:02)
--- NOTE | 2020-03-12 23:03 | PCM.HP.STD ---
Problem List (1) SBO (small bowel obstruction) Status: Acute (2) History of colonoscopy Status: Chronic (3) History of hernia repair Status: Chronic (4) History of section Status: Chronic (5) History of colectomy Status: Chronic (6) Abdominal pain Status: Acute (7) History of colon cancer Status: Chronic (8) Rheumatoid arthritis Status: Chronic (9) Hypertension Status: Chronic History of Present Illness Date of Admission: 03/12/20 Chief Complaint: Abdominal pain The patient is a 74 year old F with a significant history of rheumatoid arthritis; hypertension; colon cancer status post partial bowel resection; and multiple small bowel obstruction who presents emergency department with excruciating lower abdominal pain. Abdominal pain is nonradiating. Her abdominal pain improves when she sits upright. She denies any ameliorating factors to the pain. Associated with her symptoms is nausea and vomiting. Her symptoms started about 6 hours prior to presentation and her symptoms has progressively worsened. She had a normal bowel movement about 2 and half hours prior to her abdominal symptoms starting. Of note patient is anxious and concerned about her who is on hospice. Past Medical History Past Medical History (Chronic Problems): Chronic Problems (Last Reviewed 03/12/20 @ 23:[address] Brendan Rooney MD) History of colonoscopy (Chronic ~2015) History of hernia repair (Chronic) History of section (Chronic) History of colectomy (Chronic ~2001) History of colon cancer (Chronic) Rheumatoid arthritis (Chronic) Hypertension (Chronic) Medical History: Medical History (Last Reviewed 03/12/20 @ 23:[address] Brendan Rooney MD) Abnormal mammogram of left breast (Inactive) R92.8 Abdominal pain (Acute) R10.9 History of colon cancer (Chronic) Z85.038 Rheumatoid arthritis (Chronic) M06.9 Hypertension (Chronic) I10 Allergies Penicillins [PCN] Allergy (Verified 03/12/20 19:38) Rash Sulfa (Sulfonamide Antibiotics) Allergy (Verified 03/12/20 19:38) Rash azithromycin [From Zithromax] Adverse Reaction (Verified 03/12/20 19:38) Nausea/Vom/Diarrhea codeine Adverse Reaction (Verified 03/12/20 19:38) Other VISION PROBLEMS hydrochlorothiazide Adverse Reaction (Verified 03/12/20 19:38) Rash nitroglycerin [From Nitroglyn] Adverse Reaction (Verified 03/12/20 19:38) Other Home Medications: Ambulatory Orders Medication Instructions Recorded Folic Acid 2 tab PO DAILY 10/20/15 Lisinopril 20 mg PO DAILY 10/20/15 Methotrexate Sodium [Methotrexate] 15 mg PO QWEEK 10/20/15 Fluoxetine [Prozac] 10 mg PO DAILY 10/21/15 Cholecalciferol (Vitamin D3) 2,000 unit PO DAILY 12/25/17 [Vitamin D3] Aspirin [Aspirin EC] 81 mg PO DAILY 12/24/19 Hydroxychloroquine [Plaquenil] 200 mg PO BIDCM 12/24/19 Ascorbic Acid [Vitamin C] 500 mg PO BID 03/12/20 Surgical History: Surgical History (Last Reviewed 03/12/20 @ 23:[address] Brendan Rooney MD) History of colonoscopy (Chronic) Onset Date: ~2015 Z98.890 History of hernia repair (Chronic) Z98.890, Z87.19 History of section (Chronic) Z98.891 History of colectomy (Chronic) Onset Date: ~2001 Z90.49 Surgical History: herniorrhaphy, - - Partial colectomy Lives: Spouse/ Significant Other Smoking Status: Former smoker - *Family History Maternal Family History: Family History (Last Reviewed 03/12/20 @ 23:[address] Brendan Rooney MD) Sister Diabetes Asthma Hypertension Brother Heart disease Hypertension History Items: No pertinent history Paternal Family History: Family History (Last Reviewed 03/12/20 @ 23:[address] Brendan Rooney MD) Sister Diabetes Asthma Hypertension Brother Heart disease Hypertension History Items: No pertinent history Review of Systems Constitutional: Denies: Chills, Fever, Weight Change HEENT: Denies: Head Aches, Sinus Congestion, Sinus Drainage Cardiovascular: Denies: Chest Pain, Palpitations Respiratory: Denies: Cough, Shortness of breath at rest, Sputum production Gastrointestinal: Reports: Abdominal Pain, Nausea, Vomiting Genitourinary: Denies: Dysuria Musculoskeletal: Denies: Joint Pain, Joint Tenderness Skin: Denies: Rash, Wounds Neurological: Denies: Numbness, Tingling, Focal weakness Psychiatric: Reports: Anxiety. Denies: Depression, Homicidal Ideations, Suicidal Ideations Hematologic/ Lymphatic: Denies: Easy Bruising, Easy Bleeding VTE Information - Inpt Only VTE Present on Admission: No VTE Mechan Device Prophylaxis: SCD's VTE Pharm Prophylaxis ordered?: No Patient Problems: Active and Suspected Problems (Last Reviewed 03/12/20 @ 23:[address] Brendan Rooney MD) SBO (small bowel obstruction) (Acute) - Physical Exam Vitals/I&O's: Vital Signs Temp Pulse Resp BP Pulse Ox 97.6 F L 87 12 160/94 H 97 03/12/20 19:41 03/12/20 19:41 03/12/20 19:41 03/12/20 19:41 03/12/20 19:41 Weight: 99.337 kg Body Mass Index (BMI) 35.3 Intake and Output for Last 24 Hours 03/10/20 03/11/20 03/12/20 23:59 23:59 23:59 Intake Total 1000 / 1000 Balance 1000 / 1000 General: Alert, Oriented x3, Cooperative, - - In acute distress secondary to nausea. HEENT: Atraumatic, PERRLA, EOMI, Normocephalic Neck: Supple, No JVD, Negative Carotid Bruits, - Lungs: Clear to auscultation, Normal air movement, No rhonchi, No wheeze, No rales Cardiovascular: Regular rate, Normal S1, Normal S2, No murmurs Abdomen: Bowel Sounds Present, Soft, Tender Extremities: No edema, Capillary Refill Less than 3 Seconds Skin: No rashes, No breakdown Musculoskeletal: No Tenderness to Palpation of Joints or Extremities Neurological: Cranial nerves II-XII grossly intact Psych/Mental Status: Normal Affect, Appropriate Laboratory Results 03/12/20 20:00: WBC 12.8 H, RBC 4.45, Hgb 13.4, Hct 40.9, MCV 91.9, MCH 30.1, MCHC 32.8, RDW Std Deviation 48.2 H, RDW Coeff of Unique 14.3, Plt Count 338, MPV 9.3, Immature Gran % (Auto) 0.500, Neut % (Auto) 75.5 H, Lymph % (Auto) 16.2 L, [place] % (Auto) 4.7, Eos % (Auto) 2.8, Baso % (Auto) 0.3, Absolute Neuts (auto) 9.6 H, Absolute Lymphs (auto) 2.07, Nucleated RBC % 0 03/12/20 20:00: Sodium 137, Potassium 4.0, Chloride 104, Carbon Dioxide 27.0, Anion Gap 6, BUN 19 H, Creatinine 1.13 H, Estim Creat Clear Calc 39.65, Est GFR (MDRD) Af Amer 60, Est GFR (MDRD) Non-Af 50 L, BUN/Creatinine Ratio 16.8, Glucose 117 H, Calcium 9.4, Total Bilirubin 0.50, AST 28, ALT 25, Alkaline Phosphatase 91, Total Protein 7.4, Albumin 3.7, Globulin 3.7, Albumin/Globulin Ratio 1.0, Lipase 55 L 03/12/20 20:41: Urine Color Straw, Urine Clarity Clear, Urine pH 6.0, Ur Specific [place] 1.010, Urine Protein Negative, Urine Glucose (UA) Normal, Urine Ketones Negative, Urine Occult Blood 10 H, Urine Nitrite Negative, Urine Bilirubin Negative, Urine Urobilinogen Normal, Ur Leukocyte Esterase 25 H, Urine RBC 0 SEEN, Urine WBC 0-5 SEEN, Ur Squamous Epith Cells 0-5 SEEN, Ur Renal Epithelial Cell 0-5 SEEN, Urine Bacteria 1+, Urine Mucus 0 SEEN Assessment/Plan All Active Problems (Last Reviewed 03/12/20 @ 23:[address] Brendan Rooney MD) SBO (small bowel obstruction) (Acute) Abdominal pain (Acute) The patient is a 74 year old F with a significant history of rheumatoid arthritis; hypertension; colon cancer status post partial bowel resection; and multiple small bowel obstruction who presents emergency department with excruciating lower abdominal pain; nausea and vomiting and found to have CT abdomen and pelvis finding of small bowel obstruction. Small bowel obstruction CT abdomen pelvis final small bowel obstruction. Received morphine IV and IV antiemetics in emergency department. Morphine IV PRN ordered. Zofran IV PRN ordered. Compazine IV. Ordered. N.p.o. for now. NG tube was placed at emergency department. Continue NG to low suction wall. Supportive treatment with lactated Ringer's gentle infusion. General surgery consult. Hypertension A presentation blood pressure was not within goal. Hold home lisinopril because of n.p.o. status. PRN hydralazine IV ordered. Arthritis On home Plaquenil and methotrexate. She takes methotrexate 50 mg p.o. every week. Hold all meds at this time because of n.p.o. status Depression On home Prozac. DVT prophylaxis SCD ordered. No chemical prophylaxis because patient is a surgical candidate. Inpatient E&M: 17314 Init Hosp L3
[2020-03-12 23:04] VITALS: BP 183/79; PULSE 89; RESP 16; O2SAT 99
[2020-03-12 23:27] VITALS: BP 183/79; PULSE 79; RESP 16; TEMP 36.6; O2SAT 97
[2020-03-12] MEDS: Lidocaine Jelly 2% 20 ML Syringe (URO-JET) 20 APPLIC TOPICAL (23:28)
[2020-03-12] MEDS: Oxymetazoline 0.05% 1 SPRAY SPRAY.BTL 2 SPRAY NASAL (23:28)
--- NOTE | 2020-03-12 23:44 | ED.RN ---
DR COLON CONFIRMED PALCEMENT BY X-RAY.
[2020-03-13 00:06] VITALS: BMI 35.2
[2020-03-13 00:13] VITALS: BMI 35.2
[2020-03-13] MEDS: Morphine 2 MG/ML Syringe IV (00:35)
[2020-03-13] MEDS: proCHLORPERazine 10 MG/2 ML Vial 5 MG IV (00:35)
[2020-03-13] MEDS: Lactated Ringers 1,000 ML 75 ML IV ×2 (00:36→14:17)
[2020-03-13 00:48] VITALS: BP 183/77; PULSE 72
[2020-03-13] MEDS: hydrALAZINE 20 MG/ML Vial 5 MG IV (00:48)
[2020-03-13] MEDS: HYDROmorphone 0.5 MG/0.5 ML SYRINGE IV (02:42)
[2020-03-13] MEDS: Ondansetron 4 MG/2 ML Vial IV (02:50)
[2020-03-13 06:04] LABS: Absolute Lymphocyte Count 0.38 X10^3/uL (0.83-4.51); Basophil# 0.04 X10^3/uL; Basophil% 0.3 % (0-1); Eosinophil# 0.04 X10^3/uL; Eosinophils% 0.3 % (0-5); Hematocrit 45.3 % (37-47); Hemoglobin 14.4 g/dL (12.0-15.0); Lymphocyte # 0.38 X10^3/ul (4.0); Lymphocyte % 2.6 % (19-41); Mean Corp Hgb Conc 31.8 g/dL (32-36); Mean Corpuscular Hgb 30.1 pg (27.0-32.0); Mean Corpuscular Volume 94.6 fL (81-99); Mean Platelet Vol. 9.6 fl (6.2-12.0); Monocyte# 0.92 X10^3/uL; Monocyte% 6.4 % (0-10); NRBC Flagged by Analyzer 0 % (0-5); Neutrophil # 12.98 X10^3/uL (2.7-7.7); Neutrophil % 90.3 % (47-70); POSITIVE DIFFERENTIAL YES; Platelet Count 334 K/mm3 (150-450); RBC Distribution Width CV 14.5 % (11.6-14.6); RBC Distribution Width SD 49.8 fl (35.1-43.9); Red Blood Count 4.79 M/mm3 (4.2-5.4); White Blood Count 14.4 K/mm3 (4.4-11.0)
[2020-03-13 06:10] VITALS: BP 115/61; PULSE 69; RESP 16; TEMP 36.6; O2SAT 100
[2020-03-13 06:27] LABS: Anion Gap 7 (5-15); BUN 21 mg/dL (7-18); BUN/Creat Ratio 14.7 RATIO (10-20); Chloride 102 mmol/L (98-107); Creatinine, Serum 1.43 mg/dL (0.55-1.02); EST Glomerular Filtration Rate 38 mL/min (>60); Est Glom Filt Rate - Afr Amer 46 mL/min (>60); Estimated Creatinine Clearance 31.33 ml/min; Glucose 148 mg/dL (74-106); Potassium 4.8 mmol/L (3.5-5.1); Sodium Level 138 mmol/L (136-145)
[2020-03-13 06:42] LABS: Differential Indicated SCAN CRITERIA MET
[2020-03-13 07:15] LABS: Differential Comment SCANNED
[2020-03-13 07:16] LABS: Reactive Lymphocyte RARE
[2020-03-13 07:49] VITALS: O2SAT 98
--- NOTE | 2020-03-13 07:49 | CON.PCM_ITS ---
Problem List (1) Small bowel obstruction Status: Inactive Reason for Consult Date of Consultation: 03/13/20 Reason for Consultation: Small bowel obstruction History of Present Illness: The patient is a 74 year old F who presented to the hospital yesterday evening with abdominal pain which was excruciating. She has severe lower abdominal pain yesterday which started yesterday afternoon. She also had nausea and no vomiting. She says she had a bowel movement yesterday. She has not passing any flatus this morning. This morning she reports she is not having any abdominal pain or nausea. Past Medical History Past Medical History (Chronic Problems): Chronic Problems (Last Reviewed 03/12/20 @ 23:[address] Brendan Rooney MD) History of colonoscopy (Chronic ~2015) History of hernia repair (Chronic) History of section (Chronic) History of colectomy (Chronic ~2001) History of colon cancer (Chronic) Rheumatoid arthritis (Chronic) Hypertension (Chronic) Medical History: Medical History (Last Reviewed 03/12/20 @ 23:[address] Brendan Rooney MD) Abnormal mammogram of left breast (Inactive) R92.8 Abdominal pain (Acute) R10.9 History of colon cancer (Chronic) Z85.038 Rheumatoid arthritis (Chronic) M06.9 Hypertension (Chronic) I10 Allergies Penicillins [PCN] Allergy (Verified 03/12/20 19:38) Rash Sulfa (Sulfonamide Antibiotics) Allergy (Verified 03/12/20 19:38) Rash azithromycin [From Zithromax] Adverse Reaction (Verified 03/12/20 19:38) Nausea/Vom/Diarrhea codeine Adverse Reaction (Verified 03/12/20 19:38) Other VISION PROBLEMS hydrochlorothiazide Adverse Reaction (Verified 03/12/20 19:38) Rash nitroglycerin [From Nitroglyn] Adverse Reaction (Verified 03/12/20 19:38) Other Home Medications: Ambulatory Orders Medication Instructions Recorded Folic Acid 2 tab PO DAILY 10/20/15 Lisinopril 20 mg PO DAILY 10/20/15 Methotrexate Sodium [Methotrexate] 15 mg PO QWEEK 10/20/15 Fluoxetine [Prozac] 10 mg PO DAILY 10/21/15 Cholecalciferol (Vitamin D3) 1,000 unit PO DAILY 12/25/17 [Vitamin D3] Aspirin [Aspirin EC] 81 mg PO DAILY 12/24/19 Hydroxychloroquine [Plaquenil] 200 mg PO BIDCM 12/24/19 Ascorbic Acid [Vitamin C] 500 mg PO BID 03/12/20 Surgical History: Surgical History (Last Reviewed 03/12/20 @ 23:[address] Brendan Rooney MD) History of colonoscopy (Chronic) Onset Date: ~2015 Z98.890 History of hernia repair (Chronic) Z98.890, Z87.19 History of section (Chronic) Z98.891 History of colectomy (Chronic) Onset Date: ~2001 Z90.49 Surgical History: herniorrhaphy, - - Partial colectomy Lives: Spouse/ Significant Other Smoking Status: Former smoker - *Family History Maternal Family History: Family History (Last Reviewed 03/12/20 @ 23:[address] Brendan Rooney MD) Sister Diabetes Asthma Hypertension Brother Heart disease Hypertension History Items: No pertinent history Paternal Family History: Family History (Last Reviewed 03/12/20 @ 23:[address] Brendan Rooney MD) Sister Diabetes Asthma Hypertension Brother Heart disease Hypertension History Items: No pertinent history Review of Systems Constitutional: Denies: Anorexia, Fever HEENT: Denies: Difficulty Swallowing Cardiovascular: Denies: Chest Pain Respiratory: Denies: Cough, Shortness of Breath Gastrointestinal: Reports: Abdominal Pain, Nausea. Denies: Diarrhea, Hematemesis, Hematochezia, Vomiting Genitourinary: Denies: Dysuria Musculoskeletal: Denies: Joint Tenderness Neurological: Denies: Balance problems Patient Problems: Active and Suspected Problems (Last Reviewed 03/12/20 @ 23:[address] Brendan Rooney MD) SBO (small bowel obstruction) (Acute) - Physical Exam Vitals/I&O's: Vital Signs Temp Pulse Resp BP Pulse Ox 97.9 F 69 16 115/61 100 03/13/20 06:10 03/13/20 06:10 03/13/20 06:10 03/13/20 06:10 03/13/20 06:10 Oxygen Delivery Method Room Air Weight: 217 lb 13.067 oz Body Mass Index (BMI) 35.2 Intake and Output for Last 24 Hours 03/11/20 03/12/20 03/13/20 23:59 23:59 23:59 Intake Total 1000 / 1000 180 / 180 Output Total 1400 / 1400 Balance 1000 / 1000 -1220 / -1220 General: Alert, Oriented x3 HEENT: Atraumatic Neck: No JVD Lungs: Normal air movement Cardiovascular: Regular rate, Regular Rhythm Abdomen: Soft, Non Tender, Non-Distended Laboratory Results 03/12/20 20:00: WBC 12.8 H, RBC 4.45, Hgb 13.4, Hct 40.9, MCV 91.9, MCH 30.1, MCHC 32.8, RDW Std Deviation 48.2 H, RDW Coeff of Unique 14.3, Plt Count 338, MPV 9.3, Immature Gran % (Auto) 0.500, Neut % (Auto) 75.5 H, Lymph % (Auto) 16.2 L, [place] % (Auto) 4.7, Eos % (Auto) 2.8, Baso % (Auto) 0.3, Absolute Neuts (auto) 9.6 H, Absolute Lymphs (auto) 2.07, Nucleated RBC % 0 03/12/20 20:00: Sodium 137, Potassium 4.0, Chloride 104, Carbon Dioxide 27.0, Anion Gap 6, BUN 19 H, Creatinine 1.13 H, Estim Creat Clear Calc 39.65, Est GFR (MDRD) Af Amer 60, Est GFR (MDRD) Non-Af 50 L, BUN/Creatinine Ratio 16.8, Glucose 117 H, Calcium 9.4, Total Bilirubin 0.50, AST 28, ALT 25, Alkaline Phosphatase 91, Total Protein 7.4, Albumin 3.7, Globulin 3.7, Albumin/Globulin Ratio 1.0, Lipase 55 L 03/12/20 20:41: Urine Color Straw, Urine Clarity Clear, Urine pH 6.0, Ur Specific [place] 1.010, Urine Protein Negative, Urine Glucose (UA) Normal, Urine Ketones Negative, Urine Occult Blood 10 H, Urine Nitrite Negative, Urine Bilirubin Negative, Urine Urobilinogen Normal, Ur Leukocyte Esterase 25 H, Urine RBC 0 SEEN, Urine WBC 0-5 SEEN, Ur Squamous Epith Cells 0-5 SEEN, Ur Renal Epithelial Cell 0-5 SEEN, Urine Bacteria 1+, Urine Mucus 0 SEEN 03/13/20 05:48: Sodium 138, Potassium 4.8, Chloride 102, Carbon Dioxide 29.0, Anion Gap 7, BUN 21 H, Creatinine 1.43 H, Estim Creat Clear Calc 31.33, Est GFR (MDRD) Af Amer 46 L, Est GFR (MDRD) Non-Af 38 L, BUN/Creatinine Ratio 14.7, Glucose 148 H, Calcium 10.0 03/13/20 05:48: WBC 14.4 H, RBC 4.79, Hgb 14.4, Hct 45.3, MCV 94.6, MCH 30.1, MCHC 31.8 L, RDW Std Deviation 49.8 H, RDW Coeff of Unique 14.5, Plt Count 334, MPV 9.6, Immature Gran % (Auto) 0.100, Neut % (Auto) 90.3 H, Lymph % (Auto) 2.6 L, [place] % (Auto) 6.4, Eos % (Auto) 0.3, Baso % (Auto) 0.3, Absolute Neuts (auto) 13.0 H, Absolute Lymphs (auto) 0.38 L, Nucleated RBC % 0, Differential Comment SCANNED, Reactive Lymphocytes RARE Current Medications Dextrose (D50w Syringe) 0 gm IV X1 PRN; Protocol PRN Reason: Hypoglycemia Glucagon () 1 mg IM .X1 PRN PRN Reason: Hypoglycemia Hydralazine HCl (Apresoline Iv) 5 mg IV Q4H PRN PRN PRN Reason: SBP > 160 Last Admin: 03/13/20 00:48 Dose: 5 mg Documented by: Hydromorphone HCl (Dilaudid Inj) 0.5 mg IV Q3H PRN PRN PRN Reason: Pain Score 6-10/10 Last Admin: 03/13/20 02:42 Dose: 0.5 mg Documented by: Lactated Ringer's () 1,000 mls @ 75 mls/hr IV .[id number] SHYANNE Last Admin: 03/13/20 00:36 Dose: 75 mls/hr Documented by: Sodium Chloride () 250 mls @ 15 mls/hr IV .[id number] PRN PRN Reason: Saline Flush Sodium Chloride () 250 mls @ 15 mls/hr IV .[id number] PRN PRN Reason: Additional IVPB Infusion Ondansetron HCl (Zofran) 4 mg IV Q8H PRN PRN PRN Reason: NAUSEA/VOMITING Last Admin: 03/13/20 02:50 Dose: 4 mg Documented by: Prochlorperazine Edisylate (Compazine Iv) 5 mg IV Q4H PRN PRN PRN Reason: Breakthrough nausea/vomiting Last Admin: 03/13/20 00:35 Dose: 5 mg Documented by: Sodium Chloride () 10 - 40 ml IV UD PRN PRN Reason: SALINE FLUSH Assessment/Plan All Active Problems (Last Reviewed 03/12/20 @ 23:[address] Brendan Rooney MD) SBO (small bowel obstruction) (Acute) Abdominal pain (Acute) 74-year-old female with small obstruction versus gastroenteritis 1. I reviewed the patient CT scan and the area that has dilation with fluid appears thickened as well. I do not see evidence of a closed-loop obstruction. She has gas and stool throughout the colon. She does have a dilated stomach on CT scan but this morning she is having no abdominal pain whatsoever and her NG output is nonbilious. At this point I would continue to observe as I do not believe she has a full obstruction she has a partial obstruction or gastroenteritis. If she starts passing flatus she may have her NG removed and start trial of clear liquid diet. Leandro Goodman MD Pager: [facility] [address] [place] [address], [address] [place] [address] Office:
[2020-03-13 08:45] VITALS: BP 146/61; PULSE 75; RESP 17; TEMP 36.5; O2SAT 99
--- NOTE | 2020-03-13 10:10 | CASEMGMT ---
RN CM Face to Face with patient for initial transition planning/care coordination assessment. RN CM introduced self and role at [facility]. Patient lying in bed, alert and oriented. Patient willing to participate in assessment and is able to answer all questions appropriately. Care providers, pharmacy, and demographics verified. Patient wishes to discharge home, denies need for home health at this time. Patient states she has no further needs or concerns at this time. CM to follow for discharge planning needs that may arise. PCP: Elio Specialists: Anjelica Welder [employer] Apprentice; gely Frey [facility]: yes Living Will/HPOA: Living will only LNOK: Living Arrangements: Patient lives with in split level home with 6-8 steps with railing. Patient is independent at home. Transportation: self/ daughter DME/HHC: Patient states she has shower chair, raised toilet, cane, walker, and cpap at home. Disposition Plan: Patient to discharge home with family support and follow-up plans in place. Micaela MCALLISTER, RN, CM
[2020-03-13 14:02] VITALS: BP 132/39; PULSE 80; RESP 16; TEMP 36.4; O2SAT 96
--- NOTE | 2020-03-13 16:22 | PN_ITS ---
Patient Problems: Active and Suspected Problems (Last Reviewed 03/12/20 @ 23:[address] Brendan Rooney MD) SBO (small bowel obstruction) (Acute) Subjective: Patient was seen and examined today, this morning she still had her NG tube in place, this afternoon general surgery ordered it removed because the patient was having flatus. Patient has no complaints of any abdominal pain. - Physical Exam Vitals/I&O's: Vital Signs Temp Pulse Resp BP Pulse Ox 97.6 F L 80 16 132/39 H 96 03/13/20 14:02 03/13/20 14:02 03/13/20 14:02 03/13/20 14:02 03/13/20 14:02 Oxygen Delivery Method Room Air Weight: 98.8 kg Body Mass Index (BMI) 35.2 Intake and Output for Last 24 Hours 03/11/20 03/12/20 03/13/20 23:59 23:59 23:59 Intake Total 1000 / 1000 1390 / 1390 Output Total 1550 / 1550 Balance 1000 / 1000 -160 / -160 General: Alert, Oriented x3, Cooperative, No apparent distress, Well developed HEENT: Atraumatic, PERRLA, EOMI, Normocephalic Oral: Moist Mucosa Neck: Supple, Trachea Midline, Thyroid Normal Size and Texture Lungs: Clear to auscultation, Normal air movement, No rhonchi, No wheeze, No rales Cardiovascular: Regular rate, Regular Rhythm, Normal S1, Normal S2, No murmurs Abdomen: Bowel Sounds Present, Soft, Non Tender, Hypoactive Bowel Sounds Extremities: No clubbing, No cyanosis, No edema, Capillary Refill Less than 3 Seconds Skin: No rashes, No breakdown Musculoskeletal: No Tenderness to Palpation of Joints or Extremities Neurological: Cranial nerves II-XII grossly intact, Neuro grossly intact, Sensory exam intact to light touch and pain, Coordination normal Psych/Mental Status: Normal Affect, Appropriate, Alert and oriented to time, place, person, mood and affect Laboratory Results 03/12/20 20:00: WBC 12.8 H, RBC 4.45, Hgb 13.4, Hct 40.9, MCV 91.9, MCH 30.1, MCHC 32.8, RDW Std Deviation 48.2 H, RDW Coeff of Unique 14.3, Plt Count 338, MPV 9.3, Immature Gran % (Auto) 0.500, Neut % (Auto) 75.5 H, Lymph % (Auto) 16.2 L, [place] % (Auto) 4.7, Eos % (Auto) 2.8, Baso % (Auto) 0.3, Absolute Neuts (auto) 9.6 H, Absolute Lymphs (auto) 2.07, Nucleated RBC % 0 03/12/20 20:00: Sodium 137, Potassium 4.0, Chloride 104, Carbon Dioxide 27.0, Anion Gap 6, BUN 19 H, Creatinine 1.13 H, Estim Creat Clear Calc 39.65, Est GFR (MDRD) Af Amer 60, Est GFR (MDRD) Non-Af 50 L, BUN/Creatinine Ratio 16.8, Glucose 117 H, Calcium 9.4, Total Bilirubin 0.50, AST 28, ALT 25, Alkaline Phosphatase 91, Total Protein 7.4, Albumin 3.7, Globulin 3.7, Albumin/Globulin Ratio 1.0, Lipase 55 L 03/12/20 20:41: Urine Color Straw, Urine Clarity Clear, Urine pH 6.0, Ur Specific [place] 1.010, Urine Protein Negative, Urine Glucose (UA) Normal, Urine Ketones Negative, Urine Occult Blood 10 H, Urine Nitrite Negative, Urine Bilirubin Negative, Urine Urobilinogen Normal, Ur Leukocyte Esterase 25 H, Urine RBC 0 SEEN, Urine WBC 0-5 SEEN, Ur Squamous Epith Cells 0-5 SEEN, Ur Renal Epithelial Cell 0-5 SEEN, Urine Bacteria 1+, Urine Mucus 0 SEEN 03/13/20 05:48: Sodium 138, Potassium 4.8, Chloride 102, Carbon Dioxide 29.0, Anion Gap 7, BUN 21 H, Creatinine 1.43 H, Estim Creat Clear Calc 31.33, Est GFR (MDRD) Af Amer 46 L, Est GFR (MDRD) Non-Af 38 L, BUN/Creatinine Ratio 14.7, Glucose 148 H, Calcium 10.0 03/13/20 05:48: WBC 14.4 H, RBC 4.79, Hgb 14.4, Hct 45.3, MCV 94.6, MCH 30.1, MCHC 31.8 L, RDW Std Deviation 49.8 H, RDW Coeff of Unique 14.5, Plt Count 334, MPV 9.6, Immature Gran % (Auto) 0.100, Neut % (Auto) 90.3 H, Lymph % (Auto) 2.6 L, [place] % (Auto) 6.4, Eos % (Auto) 0.3, Baso % (Auto) 0.3, Absolute Neuts (auto) 13.0 H, Absolute Lymphs (auto) 0.38 L, Nucleated RBC % 0, Differential Comment SCANNED, Reactive Lymphocytes RARE Current Medications Dextrose (D50w Syringe) 0 gm IV X1 PRN; Protocol PRN Reason: Hypoglycemia Glucagon () 1 mg IM .X1 PRN PRN Reason: Hypoglycemia Hydralazine HCl (Apresoline Iv) 5 mg IV Q4H PRN PRN PRN Reason: SBP > 160 Last Admin: 03/13/20 00:48 Dose: 5 mg Documented by: Hydromorphone HCl (Dilaudid Inj) 0.5 mg IV Q3H PRN PRN PRN Reason: Pain Score 6-10/10 Last Admin: 03/13/20 02:42 Dose: 0.5 mg Documented by: Lactated Ringer's () 1,000 mls @ 75 mls/hr IV .[id number] Last Admin: 03/13/20 14:17 Dose: 75 mls/hr Documented by: Sodium Chloride () 250 mls @ 15 mls/hr IV .[id number] PRN PRN Reason: Saline Flush Sodium Chloride () 250 mls @ 15 mls/hr IV .[id number] PRN PRN Reason: Additional IVPB Infusion Ondansetron HCl (Zofran) 4 mg IV Q8H PRN PRN PRN Reason: NAUSEA/VOMITING Last Admin: 03/13/20 02:50 Dose: 4 mg Documented by: Prochlorperazine Edisylate (Compazine Iv) 5 mg IV Q4H PRN PRN PRN Reason: Breakthrough nausea/vomiting Last Admin: 03/13/20 00:35 Dose: 5 mg Documented by: Sodium Chloride () 10 - 40 ml IV UD PRN PRN Reason: SALINE FLUSH Medical Necessity - Tobacco Use Smoking Status: Former smoker Assessment/Plan All Active Problems (Last Reviewed 03/12/20 @ 23:[address] Brendan Rooney MD) SBO (small bowel obstruction) (Acute) Abdominal pain (Acute) #1 partial small bowel obstruction-resolving at this time, continue treatment per surgery #2 essential hypertension #3 rheumatoid arthritis #4 elevated creatinine-recheck labs tomorrow #5 leukocytosis-etiology unclear, repeat labs tomorrow Inpatient E&M: 77050 Subs Hosp L2
[2020-03-13 20:40] VITALS: BP 157/58; PULSE 83; RESP 18; TEMP 37.1; O2SAT 96
--- NOTE | 2020-03-14 00:38 | RAD_ITS ---
STUDY: X-RAY - ABDOMEN/PELVIS REASON FOR EXAM: Female, 74 years old. NAUSEA AND VOMITING TECHNIQUE: Two AP supine views of the abdomen and pelvis. COMPARISON: None. FINDINGS: Normal visualized lung bases. There is an unremarkable bowel gas pattern. There is no demonstrated free abdominal air. The visualized liver, spleen and kidneys are grossly normal in size and morphology. Normal soft tissue structures. Normal visualized osseous structures. RAD/Abdomen Single View IMPRESSION: Normal x-ray examination of the abdomen and pelvis. Electronically Signed: Jina Smith, at 1:13 EDT Tel , Service support ,
[2020-03-14 02:40] VITALS: BP 154/69; PULSE 90; RESP 18; TEMP 37.1; O2SAT 94
[2020-03-14] MEDS: Lactated Ringers 1,000 ML 75 ML IV (03:09)
[2020-03-14 07:28] LABS: Absolute Lymphocyte Count 1.72 X10^3/uL (0.83-4.51); Absolute Neutrophil Count 4.4 X10^3/uL (2.0-7.7); Basophil# 0.02 X10^3/uL; Basophil% 0.3 % (0-1); Eosinophil# 0.26 X10^3/uL; Eosinophils% 3.6 % (0-5); Hematocrit 41.2 % (37-47); Hemoglobin 13.6 g/dL (12.0-15.0); Lymphocyte # 1.72 X10^3/ul (4.0); Lymphocyte % 23.7 % (19-41); Mean Corpuscular Hgb 30.7 pg (27.0-32.0); Mean Platelet Vol. 9.5 fl (6.2-12.0); Monocyte# 0.88 X10^3/uL; Monocyte% 12.1 % (0-10); NRBC Flagged by Analyzer 0 % (0-5); Neutrophil # 4.36 X10^3/uL (2.7-7.7); Neutrophil % 60.2 % (47-70); POSITIVE MORPHOLOGY YES; Platelet Count 368 K/mm3 (150-450); RBC Distribution Width CV 14.3 % (11.6-14.6); RBC Distribution Width SD 48.2 fl (35.1-43.9); Red Blood Count 4.43 M/mm3 (4.2-5.4); White Blood Count 7.3 K/mm3 (4.4-11.0)
--- NOTE | 2020-03-14 07:37 | PCM.PN.SRG ---
Patient Problems: Active and Suspected Problems (Last Reviewed 03/12/20 @ 23:[address] Brendan Rooney MD) SBO (small bowel obstruction) (Acute) Subjective: Patient had a large bowel movement this morning and feels much better. She did have some vomiting overnight. She is not having any abdominal pain. - Physical Exam Vitals/I&O's: Vital Signs Temp Pulse Resp BP Pulse Ox 98.8 F 90 18 154/69 H 94 03/14/20 02:40 03/14/20 02:40 03/14/20 02:40 03/14/20 02:40 03/14/20 02:40 Oxygen Delivery Method Room Air Weight: 217 lb 13.067 oz Body Mass Index (BMI) 35.2 Intake and Output for Last 24 Hours 03/12/20 03/13/20 03/14/20 23:59 23:59 23:59 Intake Total 1000 / 1000 1390 / 1390 933.75 / 933.75 Output Total 1550 / 1550 1250 / 1250 Balance 1000 / 1000 -160 / -160 -316.25 / -316.25 General: Alert, Oriented x3 Lungs: Normal air movement Abdomen: Soft, Non Tender, Non-Distended Laboratory Results 03/14/20 07:15: WBC Pending, RBC Pending, Hgb Pending, Hct Pending, MCV Pending, MCH Pending, MCHC Pending, RDW Std Deviation Pending, RDW Coeff of Unique Pending, Plt Count Pending, Neut % (Auto) Pending, Absolute Neuts (auto) Pending 03/14/20 07:15: Sodium Pending, Potassium Pending, Chloride Pending, Carbon Dioxide Pending, Anion Gap Pending, BUN Pending, Creatinine Pending, Est GFR (MDRD) Af Amer Pending, Est GFR (MDRD) Non-Af Pending, BUN/Creatinine Ratio Pending, Glucose Pending, Calcium Pending Current Medications Dextrose (D50w Syringe) 0 gm IV X1 PRN; Protocol PRN Reason: Hypoglycemia Glucagon () 1 mg IM .X1 PRN PRN Reason: Hypoglycemia Hydralazine HCl (Apresoline Iv) 5 mg IV Q4H PRN PRN PRN Reason: SBP > 160 Last Admin: 03/13/20 00:48 Dose: 5 mg Documented by: Hydromorphone HCl (Dilaudid Inj) 0.5 mg IV Q3H PRN PRN PRN Reason: Pain Score 6-10/10 Last Admin: 03/13/20 02:42 Dose: 0.5 mg Documented by: Lactated Ringer's () 1,000 mls @ 75 mls/hr IV .[id number] Last Admin: 03/14/20 03:09 Dose: 75 mls/hr Documented by: Sodium Chloride () 250 mls @ 15 mls/hr IV .[id number] PRN PRN Reason: Saline Flush Sodium Chloride () 250 mls @ 15 mls/hr IV .[id number] PRN PRN Reason: Additional IVPB Infusion Ondansetron HCl (Zofran) 4 mg IV Q8H PRN PRN PRN Reason: NAUSEA/VOMITING Last Admin: 03/13/20 02:50 Dose: 4 mg Documented by: Prochlorperazine Edisylate (Compazine Iv) 5 mg IV Q4H PRN PRN PRN Reason: Breakthrough nausea/vomiting Last Admin: 03/13/20 00:35 Dose: 5 mg Documented by: Sodium Chloride () 10 - 40 ml IV UD PRN PRN Reason: SALINE FLUSH Medical Necessity - Tobacco Use Smoking Status: Former smoker Assessment/Plan All Active Problems (Last Reviewed 03/12/20 @ 23:[address] Brendan Rooney MD) SBO (small bowel obstruction) (Acute) Abdominal pain (Acute) 74-year-old female with likely gastroenteritis 1. Patient likely has gastroenteritis instead of bowel obstruction. She is passing gas and had a large bowel movement this morning but she did have vomiting overnight. X-ray obtained overnight was normal. Recommend trying clear liquids once more and advancing as tolerated. If she tolerates diet she may be discharged home. She is not having any abdominal pain. Labs are pending. Leandro Goodman MD Pager: [facility] [address] [place] [address], [address] [place] [address] Office:
[2020-03-14 07:39] LABS: Anion Gap 8 (5-15); BUN 21 mg/dL (7-18); BUN/Creat Ratio 18.4 RATIO (10-20); Calcium,Total 9.3 mg/dL (8.5-10.1); Chloride 102 mmol/L (98-107); Creatinine, Serum 1.14 mg/dL (0.55-1.02); EST Glomerular Filtration Rate 49 mL/min (>60); Est Glom Filt Rate - Afr Amer 60 mL/min (>60); Glucose 131 mg/dL (74-106); Potassium 4.2 mmol/L (3.5-5.1); Sodium Level 140 mmol/L (136-145)
[2020-03-14 07:46] LABS: Differential Indicated SCAN CRITERIA MET
[2020-03-14 08:53] VITALS: BP 148/64; PULSE 96; RESP 16; TEMP 37.2; O2SAT 94
--- NOTE | 2020-03-14 11:52 | DCINST_ITS ---
- Discharge Diagnoses Current Active Problems: Current Active and Chronic Problems (Last Reviewed 03/12/20 @ 23:[address] Brendan Rooney MD) SBO (small bowel obstruction) (Acute) You will use the following diet at home:: No restrictions Your food should be the consistency of: Regular Your liquids should be the consistency of: Regular/Thin Discharge Activity: Return to Normal Activity Weight Bearing Status: Full weight bearing Allergies/Adverse Reactions: Allergies Penicillins [PCN] Allergy (Verified 03/12/20 19:38) Rash Sulfa (Sulfonamide Antibiotics) Allergy (Verified 03/12/20 19:38) Rash azithromycin [From Zithromax] Adverse Reaction (Verified 03/12/20 19:38) Nausea/Vom/Diarrhea codeine Adverse Reaction (Verified 03/12/20 19:38) Other VISION PROBLEMS hydrochlorothiazide Adverse Reaction (Verified 03/12/20 19:38) Rash nitroglycerin [From Nitroglyn] Adverse Reaction (Verified 03/12/20 19:38) Other Medications to take at Discharge Folic Acid 2 tab PO DAILY 10/20/15 Lisinopril 20 mg PO DAILY 10/20/15 Methotrexate Sodium [Methotrexate] 15 mg PO QWEEK 10/20/15 Fluoxetine [Prozac] 10 mg PO DAILY 10/21/15 Cholecalciferol (Vitamin D3) [Vitamin D3] 1,000 unit PO DAILY 12/25/17 Aspirin [Aspirin EC] 81 mg PO DAILY 12/24/19 Hydroxychloroquine [Plaquenil] 200 mg PO BIDCM 12/24/19 Ascorbic Acid [Vitamin C] 500 mg PO BID 03/12/20 Primary Care Physician: Jesus Ballard MD [Primary Care Provider] - Please follow up with your Primary Care Physician in: in 2 weeks Test Results: Test results from this visit will be discussed in further detail at your follow- up appointment, if applicable.
[2020-03-14 12:24] VITALS: BP 146/61; PULSE 94; RESP 18; TEMP 36.8; O2SAT 95
--- NOTE | 2020-03-14 17:50 | PCM.DC.SUM ---
Discharge Date and Diagnosis Date of Admission: 03/12/20 Date of Discharge: 03/14/20 - Primary Discharge Diagnosis Acute Problems: #1 partial small bowel obstruction #2 acute viral gastroenteritis #3 rheumatoid arthritis - Secondary Discharge Diagnosis Chronic Problems: Chronic Problems (Last Reviewed 03/12/20 @ 23:[address] Brendan Rooney MD) History of colonoscopy (Chronic ~2015) History of hernia repair (Chronic) History of section (Chronic) History of colectomy (Chronic ~2001) History of colon cancer (Chronic) Rheumatoid arthritis (Chronic) Hypertension (Chronic) Hospital Course and Treatment Operations: None Procedures: None Summary of Care Provided: The patient is a 74 year old F seen in the emergency room at [facility] with a chief complaint of lower abdominal pain, she denied any vomiting, she did have nausea. Work-up in the emergency room included labs which showed an elevated white blood cell count at 12.8, creatinine was elevated at 1.13, BUN was 19. Urinalysis was unremarkable, CT scan of the abdomen and pelvis was ordered and it showed evidence of a small bowel obstruction, NG tube was inserted and the patient was given antinausea medications, general surgery was contacted and the case was discussed with general surgery. Patient improved during her hospital stay and her NG tube was removed, it was felt by general surgery that the patient probably had viral gastroenteritis in addition to a partial small bowel obstruction. On 03/14/2020, patient was seen and examined: On examination she appeared in good health and spirits, she does not appear to be in any distress. Vital signs as documented. Skin warm and dry and without overt rashes. Neck without JVD, thyroid appears normal, trachea is midline, neck is supple. Lungs clear, normal air movement was noted. Heart exam notable for regular rhythm, normal sounds and absence of murmurs, rubs or gallops. Abdomen unremarkable and without evidence of organomegaly, masses, or abdominal aortic enlargement, bowel sounds are present in all 4 quadrants, no abdominal tenderness was noted. Extremities nonedematous, no cyanosis was noted, no clubbing was noted. Neuro: Cranial nerves II through XII are grossly intact, no focal motor deficits were noted, sensation to light touch and pinprick is intact, motor exam 5/5 throughout. Psych: Patient is alert and oriented x3, she does not appear anxious or depressed, she does not appear agitated. Patient appears stable for discharge on 03/14/2020. - Physical Exam Vitals/I&O's: Vital Signs Temp Pulse Resp BP Pulse Ox 98.3 F 94 18 146/61 H 95 03/14/20 12:24 03/14/20 12:24 03/14/20 12:24 03/14/20 12:24 03/14/20 12:24 Oxygen Delivery Method Room Air Weight: 98.8 kg Body Mass Index (BMI) 35.2 Intake and Output for Last 24 Hours 03/12/20 03/13/20 03/14/20 23:59 23:59 23:59 Intake Total 1000 / 1000 1390 / 1390 2073.75 / 2073.75 Output Total 1550 / 1550 1250 / 1250 Balance 1000 / 1000 -160 / -160 823.75 / 823.75 Laboratory Results 03/14/20 07:15: WBC 7.3, RBC 4.43, Hgb 13.6, Hct 41.2, MCV 93.0, MCH 30.7, MCHC 33.0, RDW Std Deviation 48.2 H, RDW Coeff of Unique 14.3, Plt Count 368, MPV 9.5, Immature Gran % (Auto) 0.100, Neut % (Auto) 60.2, Lymph % (Auto) 23.7, [place] % (Auto) 12.1 H, Eos % (Auto) 3.6, Baso % (Auto) 0.3, Absolute Neuts (auto) 4.4, Absolute Lymphs (auto) 1.72, Nucleated RBC % 0, Differential Comment 03/14/20 07:15: Sodium 140, Potassium 4.2, Chloride 102, Carbon Dioxide 30.0, Anion Gap 8, BUN 21 H, Creatinine 1.14 H, Estim Creat Clear Calc 39.30, Est GFR (MDRD) Af Amer 60, Est GFR (MDRD) Non-Af 49 L, BUN/Creatinine Ratio 18.4, Glucose 131 H, Calcium 9.3 Discharge Activity: Return to Normal Activity Weight Bearing Status: Full weight bearing Home Medications: Medications to take at Discharge Folic Acid 2 tab PO DAILY 10/20/15 Lisinopril 20 mg PO DAILY 10/20/15 Methotrexate Sodium [Methotrexate] 15 mg PO QWEEK 10/20/15 Fluoxetine [Prozac] 10 mg PO DAILY 10/21/15 Cholecalciferol (Vitamin D3) [Vitamin D3] 1,000 unit PO DAILY 12/25/17 Aspirin [Aspirin EC] 81 mg PO DAILY 12/24/19 Hydroxychloroquine [Plaquenil] 200 mg PO BIDCM 12/24/19 Ascorbic Acid [Vitamin C] 500 mg PO BID 03/12/20 Primary Care Physician: Jesus Ballard MD [Primary Care Provider] - Please follow up with your Primary Care Physician in: in 2 weeks Disposition: Home Minutes spent on discharge:: 31 Patient Condition:: Stable Medical Necessity - Tobacco Use Smoking Status: Former smoker Meaningful Use Info Meaningful Use Diagnoses (Choose all that apply): None applicable Inpatient E&M: 07390 [facility]
--- NOTE | 2020-03-15 14:52 | CASEMGMT ---
GERMAN JOSEPH Discharge Follow-Up Phone Call. Daxa: Tony Strata: 3 Discharge Date: 03/14/20 Adm Dx: SBO Call to pt to inquire about how she has been doing since being discharged from the hospital. Pt states she her abdomen is still a little tender and she is still a little weak but she is improving and states, I'm doing alright. It's just going to take time. She denies having any N/V/D. States she tolerated a cl liquid diet today and plans to advance her diet slowly starting tomorrow. She has not made an appt with Dr Ballard yet, but states, I promise I will do that. Pt denies having any questions about the discharge instructions or medications and denies needs. GERMAN JOSEPH thanked pt for choosing [facility]. Pt stated, You are all wonderful. You have a wonderful hospital. Gema MCALLISTER RN, CM
== END 2020-03-14 12:54 | disposition home or self-care (01) | DRG 390 ==
LOC: ED 23:02 → MS3 23:40
PROVIDERS: Surgery; Admitting Provider Hospitalist; Emergency Provider Emergency Medicine; PCP Internal Medicine; Referring Provider Hospitalist; Visit Provider Internal Medicine
DX: K56.600 Partial intestinal obstruction, unspecified as to cause (principal); A08.4 Viral intestinal infection, unspecified; M06.9 Rheumatoid arthritis, unspecified; I10 Essential (primary) hypertension; F32.9 Major depressive disorder, single episode, unspecified; Z79.82 Long term (current) use of aspirin; Z79.899 Other long term (current) drug therapy; Z90.49 Acquired absence of other specified parts of digestive tract; Z85.038 Personal history of other malignant neoplasm of large intestine; Z87.891 Personal history of nicotine dependence
CPT/HCPCS: 36415; 74018; 74177; 80048; 80053; 81001; 83690; 85025; 99285; J7030; J7120; Q9967; A4216; J2405

== ENCOUNTER → 2020-04-05 09:04 | Outpatient (CLI) | payer MEDICARE, BC, SELFPAY ==
[2020-03-13 00:06] VITALS: BMI 35.2
[2020-04-05 10:28] LABS: Absolute Neutrophil Count 3.7 X10^3/uL (2.0-7.7); Basophil# 0.05 X10^3/uL; Basophil% 0.7 % (0-1); Eosinophil# 0.41 X10^3/uL; Hematocrit 38.6 % (37-47); Hemoglobin 12.4 g/dL (12.0-15.0); Lymphocyte % 32.2 % (19-41); Mean Corp Hgb Conc 32.1 g/dL (32-36); Mean Corpuscular Hgb 30.5 pg (27.0-32.0); Mean Corpuscular Volume 94.8 fL (81-99); Monocyte% 7.3 % (0-10); NRBC Flagged by Analyzer 0 % (0-5); Neutrophil # 3.65 X10^3/uL (2.7-7.7); Neutrophil % 53.5 % (47-70); Platelet Count 302 K/mm3 (150-450); RBC Distribution Width CV 14.4 % (11.6-14.6); RBC Distribution Width SD 48.9 fl (35.1-43.9); Red Blood Count 4.07 M/mm3 (4.2-5.4); White Blood Count 6.8 K/mm3 (4.4-11.0)
[2020-04-05 11:07] LABS: ALB/GLOB Ratio 0.9 RATIO (0.9-2.4); AST(SGOT) 18 U/L (15-37); Alanine Aminotransfer ALT/SGPT 22 U/L (13-56); Albumin, Serum 3.5 g/dL (3.2-5.0); Alkaline Phosphatase 91 U/L (45-117); Anion Gap 5 (5-15); BUN 16 mg/dL (7-18); BUN/Creat Ratio 17.2 RATIO (10-20); Chloride 105 mmol/L (98-107); Creatinine, Serum 0.93 mg/dL (0.55-1.02); EST Glomerular Filtration Rate 62 mL/min (>60); Est Glom Filt Rate - Afr Amer 75 mL/min (>60); Globulin 3.7 g/dL (2.2-4.2); Glucose 93 mg/dL (74-106); Potassium 4.2 mmol/L (3.5-5.1); Protein, Total 7.2 g/dL (6.4-8.2); Sodium Level 137 mmol/L (136-145)
== END ==
PROVIDERS: PCP Internal Medicine; Referring Provider Internal Medicine Rheumatology; Visit Provider Internal Medicine Rheumatology
DX: M06.00 Rheumatoid arthritis without rheumatoid factor, unspecified site (principal); G56.03 Carpal tunnel syndrome, bilateral upper limbs; M65.352 Trigger finger, left little finger; M18.0 Bilateral primary osteoarthritis of first carpometacarpal joints; M17.0 Bilateral primary osteoarthritis of knee; K21.9 Gastro-esophageal reflux disease without esophagitis; M47.892 Other spondylosis, cervical region; E11.9 Type 2 diabetes mellitus without complications; Z79.899 Other long term (current) drug therapy
CPT/HCPCS: 36415; 80053; 85025

== ENCOUNTER → 2020-07-03 14:23 | Outpatient (CLI) | payer MEDICARE, BC, SELFPAY ==
[2020-07-03 18:46] LABS: Absolute Lymphocyte Count 1.91 X10^3/uL (0.83-4.51); Absolute Neutrophil Count 4.4 X10^3/uL (2.0-7.7); Basophil# 0.03 X10^3/uL; Basophil% 0.4 % (0-1); Eosinophil# 0.36 X10^3/uL; Eosinophils% 5.1 % (0-5); Hematocrit 37.3 % (37-47); Hemoglobin 12.2 g/dL (12.0-15.0); Lymphocyte # 1.91 X10^3/ul (4.0); Lymphocyte % 26.9 % (19-41); Mean Corp Hgb Conc 32.7 g/dL (32-36); Mean Corpuscular Hgb 30.3 pg (27.0-32.0); Mean Corpuscular Volume 92.8 fL (81-99); Mean Platelet Vol. 10.7 fl (6.2-12.0); Monocyte% 5.6 % (0-10); NRBC Flagged by Analyzer 0 % (0-5); Neutrophil # 4.38 X10^3/uL (2.7-7.7); Neutrophil % 61.7 % (47-70); Platelet Count 289 K/mm3 (150-450); RBC Distribution Width SD 47.5 fl (35.1-43.9); Red Blood Count 4.02 M/mm3 (4.2-5.4); White Blood Count 7.1 K/mm3 (4.4-11.0)
[2020-07-03 18:56] LABS: ALB/GLOB Ratio 1.1 RATIO (0.9-2.4); AST(SGOT) 26 U/L (15-37); Alanine Aminotransfer ALT/SGPT 25 U/L (13-56); Albumin, Serum 3.6 g/dL (3.2-5.0); Alkaline Phosphatase 94 U/L (45-117); Anion Gap 5 (5-15); BUN 19 mg/dL (7-18); BUN/Creat Ratio 17.8 RATIO (10-20); Calcium,Total 8.6 mg/dL (8.5-10.1); Chloride 107 mmol/L (98-107); Creatinine, Serum 1.07 mg/dL (0.55-1.02); EST Glomerular Filtration Rate 53 mL/min (>60); Est Glom Filt Rate - Afr Amer 64 mL/min (>60); Globulin 3.3 g/dL (2.2-4.2); Glucose 92 mg/dL (74-106); Potassium 4.3 mmol/L (3.5-5.1); Protein, Total 6.9 g/dL (6.4-8.2); Sodium Level 140 mmol/L (136-145)
== END ==
PROVIDERS: PCP Internal Medicine; Referring Provider Internal Medicine Rheumatology; Visit Provider Internal Medicine Rheumatology
DX: M06.00 Rheumatoid arthritis without rheumatoid factor, unspecified site (principal); G56.03 Carpal tunnel syndrome, bilateral upper limbs; M65.352 Trigger finger, left little finger; M18.0 Bilateral primary osteoarthritis of first carpometacarpal joints; M17.0 Bilateral primary osteoarthritis of knee; K21.9 Gastro-esophageal reflux disease without esophagitis; M47.892 Other spondylosis, cervical region; E11.9 Type 2 diabetes mellitus without complications; Z79.899 Other long term (current) drug therapy
CPT/HCPCS: 36415; 80053; 85025

== ENCOUNTER → 2020-09-26 16:23 | Outpatient (CLI) | payer MEDICARE, BC, SELFPAY ==
[2020-09-26 18:00] LABS: Absolute Lymphocyte Count 2.42 X10^3/uL (0.83-4.51); Absolute Neutrophil Count 4.7 X10^3/uL (2.0-7.7); Basophil# 0.06 X10^3/uL; Basophil% 0.7 % (0-1); Eosinophil# 0.32 X10^3/uL; Eosinophils% 3.9 % (0-5); Hematocrit 39.6 % (37-47); Lymphocyte # 2.42 X10^3/ul (4.0); Lymphocyte % 29.8 % (19-41); Mean Corp Hgb Conc 32.8 g/dL (32-36); Mean Corpuscular Hgb 30.3 pg (27.0-32.0); Mean Corpuscular Volume 92.3 fL (81-99); Mean Platelet Vol. 9.7 fl (6.2-12.0); Monocyte# 0.56 X10^3/uL; Monocyte% 6.9 % (0-10); NRBC Flagged by Analyzer 0 % (0-5); Neutrophil # 4.73 X10^3/uL (2.7-7.7); Neutrophil % 58.5 % (47-70); Platelet Count 316 K/mm3 (150-450); RBC Distribution Width CV 14.2 % (11.6-14.6); RBC Distribution Width SD 47.9 fl (35.1-43.9); Red Blood Count 4.29 M/mm3 (4.2-5.4); White Blood Count 8.1 K/mm3 (4.4-11.0)
[2020-09-26 18:23] LABS: ALB/GLOB Ratio 1.1 RATIO (0.9-2.4); AST(SGOT) 23 U/L (15-37); Alanine Aminotransfer ALT/SGPT 29 U/L (13-56); Albumin, Serum 3.8 g/dL (3.2-5.0); Alkaline Phosphatase 92 U/L (45-117); Anion Gap 6 (5-15); BUN 16 mg/dL (7-18); BUN/Creat Ratio 18.2 RATIO (10-20); Calcium,Total 9.2 mg/dL (8.5-10.1); Chloride 106 mmol/L (98-107); Creatinine, Serum 0.88 mg/dL (0.55-1.02); EST Glomerular Filtration Rate 66 mL/min (>60); Est Glom Filt Rate - Afr Amer 80 mL/min (>60); Globulin 3.6 g/dL (2.2-4.2); Glucose 90 mg/dL (74-106); Potassium 3.8 mmol/L (3.5-5.1); Protein, Total 7.4 g/dL (6.4-8.2); Sodium Level 141 mmol/L (136-145)
== END ==
PROVIDERS: PCP Internal Medicine; Referring Provider Internal Medicine Rheumatology; Visit Provider Internal Medicine Rheumatology
DX: M06.00 Rheumatoid arthritis without rheumatoid factor, unspecified site (principal); G56.03 Carpal tunnel syndrome, bilateral upper limbs; M65.352 Trigger finger, left little finger; M18.0 Bilateral primary osteoarthritis of first carpometacarpal joints; M17.0 Bilateral primary osteoarthritis of knee; K21.9 Gastro-esophageal reflux disease without esophagitis; M47.892 Other spondylosis, cervical region; E11.9 Type 2 diabetes mellitus without complications; Z79.899 Other long term (current) drug therapy
CPT/HCPCS: 36415; 80053; 85025

== ENCOUNTER 2020-11-28 16:14 | Outpatient (RCR) | payer MEDICARE, BC, SELFPAY ==
[2020-11-28 17:01] LABS: BNP,B-Type NATRIURETIC PEPTIDE 11.3 pg/mL (0-100)
== END 2020-12-20 23:59 ==
LOC: LABSPEC 16:14
PROVIDERS: PCP Internal Medicine; Referring Provider Nurse Practitioner; Visit Provider Nurse Practitioner
DX: R06.02 Shortness of breath (principal); R60.0 Localized edema
CPT/HCPCS: 83880; 85379

== ENCOUNTER 2020-11-28 18:33 | Observation (INO) | payer MEDICARE, BC, SELFPAY ==
[2020-11-28 18:34] VITALS: BP 157/66; PULSE 91; PULSE 96; RESP 16; TEMP 35.9; O2SAT 98; BMI 35.9
--- NOTE | 2020-11-28 19:22 | EKG12_ITS ---
Test Reason : SOB Blood Pressure : / mmHG Vent. Rate : 079 BPM Atrial Rate : 079 BPM P-R Int : 174 ms QRS Dur : 114 ms QT Int : 406 ms P-R-T Axes : 070 -36 058 degrees QTc Int : 465 ms Sinus rhythm with occasional Premature ventricular complexes Left axis deviation Incomplete left bundle branch block Abnormal ECG Confirmed by ALEX DOMINGUEZ, KAREEM ([id number]), supervising film or videotape editor NORA POLK ([id number]) on 12/04/2020 10:18:36 A M Referred By: PRADIP Confirmed By:RENEE JOHNSON MD
--- NOTE | 2020-11-28 19:24 | ED.VIS.GEN ---
History of Present Illness Chief Complaint: Shortness of Breath Informant: Patient Narrative: 75-year-old female presents for the evaluation of shortness of breath. Patient tells me that about 1 to 2 weeks ago she began to have dyspnea and a dry hacking cough. She notes fatigue. She notes dyspnea is more pronounced when she exerts herself. She went to her doctor today and tells me that they did an EKG and a chest x-ray and warner blood work. She was at home caring for her when she got a phone call from the [facility] stating that she needed to go to emergency because they believe she is forming a blood clot in her lung. Unfortunately I do not have any results of those testing available to me. Patient denies any fever. She states that she got her second Covid vaccination approximately 2 weeks ago. No significant URI symptoms or diarrhea. She notes swelling of her ankles. Patient denies any known coronary artery disease. No recent stress test or heart catheterizations. Her is in hospice and she is very anxious to get home to care for him. - Past Medical History (1) SBO (small bowel obstruction) Status: Acute (2) Hypertension Status: Chronic (3) Rheumatoid arthritis Status: Chronic Past Medical History - Allergies and Home Meds Allergies/Adverse Reactions: Allergies Penicillins [PCN] Allergy (Verified 11/28/20 19:46) Rash Sulfa (Sulfonamide Antibiotics) Allergy (Verified 11/28/20 19:46) Rash azithromycin [From Zithromax] Adverse Reaction (Verified 11/28/20 19:46) Nausea/Vom/Diarrhea codeine Adverse Reaction (Verified 11/28/20 19:46) Other VISION PROBLEMS hydrochlorothiazide Adverse Reaction (Verified 11/28/20 19:46) Rash nitroglycerin [From Nitroglyn] Adverse Reaction (Verified 11/28/20 19:46) Other Primary Care Physician: Jesus Ballard MD [Primary Care Provider] - Surgical History: herniorrhaphy, - - Partial colectomy Lives: Spouse/ Significant Other Smoking Status: Former smoker Alcohol: None Drugs: None - Family History Maternal Family History: Family History (Last Reviewed 03/12/20 @ 23:[address] Brendan Rooney MD) Sister Diabetes Asthma Hypertension Brother Heart disease Hypertension Family History: Reports: No pertinent history Paternal Family History: Family History (Last Reviewed 03/12/20 @ 23:[address] Brendan Rooney MD) Sister Diabetes Asthma Hypertension Brother Heart disease Hypertension Family History: Reports: No pertinent history Review of Systems General: Reports: Malaise. Denies: Chills, Fever, Sweats Eyes: Denies: Visual changes - bilaterally, Diplopia ENT: Denies: Rhinorrhea, Sore throat Cardiovascular: Denies: Chest pain, Palpitations Respiratory: Reports: Dyspnea, Cough. Denies: Dyspnea on exertion Gastrointestinal: Denies: Abdominal pain, Nausea, Vomiting, Diarrhea, Melena, Hematochezia Genitourinary: Denies: Dysuria, Hematuria, Frequency Musculoskeletal: Denies: Back pain, Extremity Pain Skin: Denies: Rash, Wounds Neurological: Denies: Headache, Weakness, Numbness Physical Exam Vital Signs/Narrative: Vital Signs Temp Pulse Resp BP Pulse Ox 11/28/20 18:34 96.7 F L 96 16 157/66 H 98 Inital Vital Signs reviewed: Yes General: Well nourished, Well developed, No Acute Distress Head: Normocephalic, Atraumatic Eyes: Perrl, EOMI ENT: Moist mucous membranes, No rhinorrhea Neck: Supple, Nontender Cardiovascular: Regular rate, Regular rhythm, No murmurs Respiratory: No distress, CTA bilaterally, Chest nontender Abdomen: Soft, Nontender, Nondistended, Normal bowel sounds Back: Nontender, Normal Inspection Extremities: Nontender, Edema - Mild lower extremity edema nonpitting Skin: Normal color, No rash Neurological: Alert, Oriented x3, Cranial nerves II-XII grossly intact, Normal Strength, Normal Sensation Psychological: Normal affect, Normal Mood Diagnostic/Tx/Re-eval Clinical Impression(s) from Imaging Studies Chest CTA 11/28/20 19:57 IMPRESSION: No evidence of pulmonary embolism. Mild emphysema. No consolidation. Mild mediastinal lymphadenopathy, nonspecific. Small hiatal hernia. Electronically Signed: Brandon Rivera MD at 20:50 EST Tel , Service support , Laboratory Last Values WBC 8.3 K/mm3 (4.4-11.0) 11/28/20 19:30 RBC 3.96 M/mm3 (4.2-5.4) L 11/28/20 19: Hgb 12.3 g/dL (12.0-15.0) 11/28/20 19: Hct 36.5 % (37-47) L 11/28/20 19: MCV 92.2 fL (81-99) 11/28/20 19: MCH 31.1 pg (27.0-32.0) 11/28/20: MCHC 33.7 g/dL (32-36) 11/28/20: RDW Std Deviation 45.6 fl (35.1-43.9) H 11/28/20: RDW Coeff of Unique 13.6 % (11.6-14.6) 11/28/20: Plt Count 339 K/mm3 (150-450) 11/28/20: MPV 9.0 fl (6.2-12.0) 11/28/20 19: Immature Gran % (Auto) 0.200 % (0.0-0.9) 11/28/20 19: Neut % (Auto) 65.7 % (47-70) 11/28/20 19: Lymph % (Auto) 20.6 % (19-41) 11/28/20: [place] % (Auto) 9.4 % (0-10) 11/28/20 19: Eos % (Auto) 3.5 % (0-5) 11/28/20: Baso % (Auto) 0.6 % (0-1) 11/28/20: Absolute Neuts (auto) 5.4 X10^3/uL (2.0-7.7) 11/28/20: Absolute Lymphs (auto) 1.70 X10^3/uL (0.83-4.51) 11/28/20 19: Nucleated RBC % 0 % (0-5) 11/28/20 19:30 Sodium 142 mmol/L (136-145) 11/28/20 19: Potassium 3.6 mmol/L (3.5-5.1) 11/28/20: Chloride 107 mmol/L (98-107) 11/28/20 19: Carbon Dioxide 28.0 mmol/L (21.0-32.0) 11/28/20 19:30 Anion Gap 7 (5-15) 11/28/20 19:30 BUN 16 mg/dL (7-18) 11/28/20:30 Creatinine 1.06 mg/dL (0.55-1.02) H 11/28/20 19:30 Estim Creat Clear Calc 41.61 ml/min 11/28/20 19:30 Est GFR (MDRD) Af Amer 65 mL/min (>60) 11/28/20: Est GFR (MDRD) Non-Af 53 mL/min (>60) L 11/28/20: BUN/Creatinine Ratio 15.1 RATIO (10-20) 11/28/20: Glucose 133 mg/dL (74-106) H 11/28/20: Calcium 9.1 mg/dL (8.5-10.1) 11/28/20: Total Bilirubin 0.40 mg/dL (0.20-1.00) 11/28/20: AST 25 U/L (15-37) 11/28/20:30 ALT 36 U/L (13-56) 11/28/20:30 Alkaline Phosphatase 110 U/L (45-117) 11/28/20: Troponin I < 0.015 ng/mL (<0.045) 11/28/20 B-Natriuretic Peptide 11.6 pg/mL (0-100) 11/28/20 19:34 Total Protein 7.4 g/dL (6.4-8.2) 11/28/20: Albumin 3.4 g/dL (3.2-5.0) 11/28/20: Globulin 4.0 g/dL (2.2-4.2) 11/28/20: Albumin/Globulin Ratio 0.8 RATIO (0.9-2.4) L 11/28/20:30 - Medical Decision Making Blood work was normal including troponin. CTA of the chest is negative for pulmonary embolism. EKG is sinus rhythm with an incomplete left bundle branch block at a rate of 79 with noted PVC. My concern is that she is having dyspnea with any type of exertion and fatigue of about 1 week. And no testing has yet to reveal a possible cause. I am concerned about a cardiac etiology. She obviously has a stressful social situation at home with her . Her daughter is actually able to stay with him tonight. I am going to talk with her hospitalist and see if we can admit her for cardiac stress testing tomorrow. ED Disposition - Plan for ED Patient: Disposition: Acute Care Hospital [facility] Diagnosis: Dyspnea, Fatigue Referrals: Jesus Ballard MD [Primary Care Provider] -
[2020-11-28 19:37] LABS: Absolute Neutrophil Count 5.4 X10^3/uL (2.0-7.7); Basophil# 0.05 X10^3/uL; Basophil% 0.6 % (0-1); Eosinophil# 0.29 X10^3/uL; Eosinophils% 3.5 % (0-5); Hematocrit 36.5 % (37-47); Hemoglobin 12.3 g/dL (12.0-15.0); Lymphocyte % 20.6 % (19-41); Mean Corp Hgb Conc 33.7 g/dL (32-36); Mean Corpuscular Hgb 31.1 pg (27.0-32.0); Mean Corpuscular Volume 92.2 fL (81-99); Monocyte# 0.78 X10^3/uL; Monocyte% 9.4 % (0-10); NRBC Flagged by Analyzer 0 % (0-5); Neutrophil # 5.43 X10^3/uL (2.7-7.7); Neutrophil % 65.7 % (47-70); Platelet Count 339 K/mm3 (150-450); RBC Distribution Width CV 13.6 % (11.6-14.6); RBC Distribution Width SD 45.6 fl (35.1-43.9); Red Blood Count 3.96 M/mm3 (4.2-5.4); White Blood Count 8.3 K/mm3 (4.4-11.0)
[2020-11-28 19:55] LABS: ALB/GLOB Ratio 0.8 RATIO (0.9-2.4); AST(SGOT) 25 U/L (15-37); Alanine Aminotransfer ALT/SGPT 36 U/L (13-56); Albumin, Serum 3.4 g/dL (3.2-5.0); Alkaline Phosphatase 110 U/L (45-117); Anion Gap 7 (5-15); BUN 16 mg/dL (7-18); BUN/Creat Ratio 15.1 RATIO (10-20); Calcium,Total 9.1 mg/dL (8.5-10.1); Chloride 107 mmol/L (98-107); Creatinine, Serum 1.06 mg/dL (0.55-1.02); EST Glomerular Filtration Rate 53 mL/min (>60); Est Glom Filt Rate - Afr Amer 65 mL/min (>60); Estimated Creatinine Clearance 41.61 ml/min; Glucose 133 mg/dL (74-106); Potassium 3.6 mmol/L (3.5-5.1); Protein, Total 7.4 g/dL (6.4-8.2); Sodium Level 142 mmol/L (136-145)
--- NOTE | 2020-11-28 19:57 | CT_ITS ---
STUDY: CTA CHEST REASON FOR EXAM: Female, 75 years old. high pretest RADIATION DOSAGE (If Supplied By Facility): CTDIvol = ( 13.675 ) mGy, DLP = ( 605.68 ) mGycm TECHNIQUE: The examination was performed with the intravenous administration of IV 100mL Isovue-370. Post-processing of the angiographic images was performed, with multiplanar reformation and 3D reconstruction. Individualized dose optimization techniques were used for this CT. COMPARISON: None. FINDINGS: Normal enhancement of the main pulmonary artery and right and left pulmonary arteries. Normal enhancement of the bilateral peripheral pulmonary arteries. There is no demonstrated pulmonary embolism. Normal thoracic aorta and visualized great vessels. There is no demonstrated aortic dissection. Normal heart and pericardium. Mild mediastinal lymphadenopathy is present. The largest node is anterior to the morena and measures 1.6 cm in diameter. Normal visualized trachea and bronchi. The lungs are well expanded. Mild emphysema is present. There is no consolidation. Bibasilar atelectasis is present. Normal pleura. A small hiatal hernia is present. Normal osseous structures. Normal visualized upper abdomen. CT/CTA Chest W/WO Contrast IMPRESSION: No evidence of pulmonary embolism. Mild emphysema. No consolidation. Mild mediastinal lymphadenopathy, nonspecific. Small hiatal hernia. Electronically Signed: Brandon Rivera MD at 20:50 EST Tel , Service support ,
[2020-11-28 21:03] LABS: BNP,B-Type NATRIURETIC PEPTIDE 11.6 pg/mL (0-100)
--- NOTE | 2020-11-28 21:23 | HP.PCM_ITS ---
Problem List (1) CHF exacerbation Status: Acute (2) Small bowel obstruction Status: Inactive (3) SBO (small bowel obstruction) Status: Acute (4) Dyspnea Status: Acute (5) Fatigue Status: Acute (6) Abnormal mammogram of left breast Status: Inactive (7) History of colonoscopy Status: Chronic (8) History of hernia repair Status: Chronic (9) History of section Status: Chronic (10) History of colectomy Status: Chronic (11) Abdominal pain Status: Acute (12) History of colon cancer Status: Chronic (13) Rheumatoid arthritis Status: Chronic (14) Hypertension Status: Chronic History of Present Illness Date of Admission: 11/28/20 Chief Complaint: Shortness of breath for 2 weeks The patient is a 75 year old F with multiple comorbidities as mentioned above came to ED for shortness of breath, progressively worsening for last 2 weeks. Complains of mainly dyspnea on exertion walking within home or climbing 5 stairs. She also sleeps on recliner, orthopnea but denies PND. She has sleep apnea and wears CPAP during the night. She gets dizzy and lightheaded on walking. Denies chest pain, pressure or tightness. No fever or chills. She completed 2 doses of Pfizer vaccine on 11/11/2020. History of colon cancer status post colectomy, in remission for last 6 years. History of rheumatoid arthritis on methotrexate and hydroxychloroquine. Had 2D echo probably more than 10 years and stress test 20 years ago. Denies prior cardiopulmonary disease. History of weight gain about 12 pounds in last 6 months and bilateral leg edema up to knees. In ED, EKG shows normal sinus rhythm at 79 bpm with PVCs, LAD with incomplete LBBB. QTC 465 ms. No significant difference from previous EKG of 10/2012. BNP 11.6, troponin negative. PCP sent to ER for evaluation of PE and patient had CTPA which did not show evidence of pulmonary embolism but mild bibasilar atelectasis. Remote history of smoking, quit more than 25 years ago Past Medical History Past Medical History (Chronic Problems): Chronic Problems (Last Reviewed 03/12/20 @ 23:[address] Brendan Rooney MD) History of colonoscopy (Chronic ~2015) History of hernia repair (Chronic) History of section (Chronic) History of colectomy (Chronic ~2001) History of colon cancer (Chronic) Rheumatoid arthritis (Chronic) Hypertension (Chronic) Medical History: Medical History (Last Reviewed 03/12/20 @ 23:[address] Brendan Rooney MD) Abnormal mammogram of left breast (Inactive) R92.8 Abdominal pain (Acute) R10.9 History of colon cancer (Chronic) Z85.038 Rheumatoid arthritis (Chronic) M06.9 Hypertension (Chronic) I10 Allergies Penicillins [PCN] Allergy (Verified 11/28/20 19:46) Rash Sulfa (Sulfonamide Antibiotics) Allergy (Verified 11/28/20 19:46) Rash azithromycin [From Zithromax] Adverse Reaction (Verified 11/28/20 19:46) Nausea/Vom/Diarrhea codeine Adverse Reaction (Verified 11/28/20 19:46) Other VISION PROBLEMS hydrochlorothiazide Adverse Reaction (Verified 11/28/20 19:46) Rash nitroglycerin [From Nitroglyn] Adverse Reaction (Verified 11/28/20 19:46) Other Home Medications: Ambulatory Orders Medication Instructions Recorded Folic Acid 2 tab PO DAILY 10/20/15 Methotrexate Sodium [Methotrexate] 15 mg PO QWEEK 10/20/15 Fluoxetine [Prozac] 10 mg PO DAILY 10/21/15 Cholecalciferol (Vitamin D3) 1,000 unit PO DAILY 12/25/17 [Vitamin D3] Aspirin [Aspirin EC] 81 mg PO DAILY 12/24/19 Hydroxychloroquine [Plaquenil] 200 mg PO BIDCM 12/24/19 Ascorbic Acid [Vitamin C] 500 mg PO BID 03/12/20 Amlodipine Besylate [Norvasc] 5 mg PO DAILY 11/28/20 Atorvastatin Calcium [Lipitor] 10 mg PO QHS 11/28/20 Surgical History: Surgical History (Last Reviewed 03/12/20 @ 23:[address] Brendan Rooney MD) History of colonoscopy (Chronic) Onset Date: ~2015 Z98.890 History of hernia repair (Chronic) Z98.890, Z87.19 History of section (Chronic) Z98.891 History of colectomy (Chronic) Onset Date: ~2001 Z90.49 Surgical History: herniorrhaphy, - - Partial colectomy Lives: Spouse/ Significant Other Smoking Status: Former smoker Alcohol: None Drugs: None - *Family History Maternal Family History: Family History (Last Reviewed 03/12/20 @ 23:[address] Brendan Rooney MD) Sister Diabetes Asthma Hypertension Brother Heart disease Hypertension History Items: No pertinent history Paternal Family History: Family History (Last Reviewed 03/12/20 @ 23:[address] Brendan Rooney MD) Sister Diabetes Asthma Hypertension Brother Heart disease Hypertension History Items: No pertinent history Review of Systems Constitutional: Denies: Chills, Fever, Weight Change HEENT: Denies: Head Aches, Sinus Congestion, Sinus Drainage Cardiovascular: Reports: Edema. Denies: Chest Pain, Palpitations Respiratory: Reports: Cough - Occasional cough on exertion, Shortness of breath upon exertion. Denies: Shortness of breath at rest, Sputum production Gastrointestinal: Denies: Abdominal Pain, Nausea, Vomiting Genitourinary: Denies: Dysuria Musculoskeletal: Reports: Hand Pain, Joint Pain. Denies: Joint Tenderness Skin: Denies: Rash, Wounds Neurological: Reports: Balance problems. Denies: Focal weakness, Numbness, Tingling Psychiatric: Denies: Anxiety, Depression, Homicidal Ideations, Suicidal Ideations Hematologic/ Lymphatic: Denies: Easy Bruising, Easy Bleeding VTE Information - Inpt Only VTE Present on Admission: No VTE Mechan Device Prophylaxis: None VTE Pharm Prophylaxis ordered?: Yes Patient Problems: Active and Suspected Problems (Last Reviewed 03/12/20 @ 23:[address] Brendan benavides MD) SBO (small bowel obstruction) (Acute) Dyspnea (Acute) Fatigue (Acute) Objective: General: Alert, Oriented x3, Cooperative HEENT: Atraumatic, PERRLA, EOMI, Normocephalic Oral: No Gingival or Mucosal Lesions/ Ulcerations Neck: Supple, No JVD, Negative Carotid Bruits Lungs: Air entry diminished in bilateral lung bases. No crepitation/rhonchi. Cardiovascular: JVD not elevated. Occasional PVCs. Regular rate, Regular Rhythm, Normal S1, Normal S2, No murmurs Abdomen: Lower midline surgical scar. Bowel Sounds Present, Soft, Non Tender, Non-Distended : No renal angle tenderness. No suprapubic tenderness. Extremities: Bilateral leg pitting edema up to knees, Capillary Refill Less than 3 Seconds Skin: No rashes, No breakdown Musculoskeletal: No Tenderness to Palpation of Joints or Extremities Neurological: Cranial nerves II-XII grossly intact, Deep Tendon Reflexes 2+/4 and Symmetrical, Neuro grossly intact Psych/Mental Status: Normal Affect, Appropriate. - Physical Exam Vitals/I&O's: Vital Signs Temp Pulse Resp BP Pulse Ox 96.7 F L 96 16 157/66 H 98 11/28/20 18:34 11/28/20 18:34 11/28/20 18:34 11/28/20 18:34 11/28/20 18:34 Oxygen Delivery Method Room Air Weight: 222 lb 7.143 oz Body Mass Index (BMI) 35.9 Laboratory Results 11/28/20 19:30: WBC 8.3, RBC 3.96 L, Hgb 12.3, Hct 36.5 L, MCV 92.2, MCH 31.1, MCHC 33.7, RDW Std Deviation 45.6 H, RDW Coeff of Unique 13.6, Plt Count 339, MPV 9.0, Immature Gran % (Auto) 0.200, Neut % (Auto) 65.7, Lymph % (Auto) 20.6, [place] % (Auto) 9.4, Eos % (Auto) 3.5, Baso % (Auto) 0.6, Absolute Neuts (auto) 5.4, Absolute Lymphs (auto) 1.70, Nucleated RBC % 0 11/28/20 19:30: Sodium 142, Potassium 3.6, Chloride 107, Carbon Dioxide 28.0, Anion Gap 7, BUN 16, Creatinine 1.06 H, Estim Creat Clear Calc 41.61, Est GFR (MDRD) Af Amer 65, Est GFR (MDRD) Non-Af 53 L, BUN/Creatinine Ratio 15.1, Glucose 133 H, Calcium 9.1, Total Bilirubin 0.40, AST 25, ALT 36, Alkaline Phosphatase 110, Troponin I < 0.015, Total Protein 7.4, Albumin 3.4, Globulin 4.0, Albumin/Globulin Ratio 0.8 L 11/28/20 19:34: B-Natriuretic Peptide 11.6 Assessment/Plan All Active Problems (Last Reviewed 03/12/20 @ 23:[address] Brendan Rooney MD) SBO (small bowel obstruction) (Acute) Dyspnea (Acute) Fatigue (Acute) CHF exacerbation (Acute) Abdominal pain (Acute) The patient is a 75 year old F with multiple comorbidities as mentioned above came to ED for shortness of breath, progressively worsening for last 2 weeks, leg edema features suggestive of possible new onset CHF exacerbation In ED, EKG shows normal sinus rhythm at 79 bpm with PVCs, LAD with incomplete LBBB. QTC 465 ms. No significant difference from previous EKG of 10/2012. BNP 11.6, troponin negative. 1. Clinically seems new onset CHF: Patient is being admitted to PCU. Serial troponin. 2D echo ordered for tomorrow a.m. If troponins are negative, Lexiscan nuclear stress test tomorrow a.m. to rule out ischemic heart disease. AL risk score 3. Patient is risk factor for coronary artery disease with history of hypertension, rheumatoid arthritis. Started on Lasix 40 g IV twice daily. Heart failure core measures including intake and output, fluid restriction less than 1500 mL, daily weight monitoring, kidney and electrolytes monitoring. 2. Rheumatoid arthritis on methotrexate and Plaquenil: Continued 3. Hypertension, dyslipidemia: Hold Norvasc as patient has bilateral leg edema. Fasting lipid profile and TSH tomorrow a.m. Blood pressure is controlled. 4. Other comorbidities include colon cancer status post colectomy in remission for last 6 years, history of recurrent partial bowel obstruction in February 2020, bilateral inguinal hernia repaired with mesh. VTE prophylaxis: Lovenox 40 mg subcu daily Living will/advanced directive/end of life care: Patient does have living will or advanced directive. Her is under hospice care with severe COPD and severe aortic stenosis. After discussion of benefits/risks procedures involved with full code, DNR CC arrest and DNR CC, the patient opted for DNR-CC Arrest with no intubation Patient does not want artificial life support including intubation, tube feed, ventilator and/chest compression, central venous catheter, vasopressor and DC shock if needed Total time spent in [id number] encounter in discussion of advanced directive 16 minutes. Clinical Impression(s) from Imaging Studies Chest CTA 11/28/20 19:57 IMPRESSION: No evidence of pulmonary embolism. Mild emphysema. No consolidation. Mild mediastinal lymphadenopathy, nonspecific. Small hiatal hernia. OBSV E&M: 30781 Initial observation care L3 Procedures: [id number] Advncd Care Plan 30 Min
[2020-11-28 21:29] VITALS: BP 147/77; PULSE 74; RESP 18; O2SAT 98
--- NOTE | 2020-11-28 22:37 | EKG12_ITS ---
Test Reason : SOB Blood Pressure : / mmHG Vent. Rate : 074 BPM Atrial Rate : 074 BPM P-R Int : 178 ms QRS Dur : 112 ms QT Int : 418 ms P-R-T Axes : 072 -32 034 degrees QTc Int : 463 ms Normal sinus rhythm Left axis deviation Incomplete left bundle branch block Abnormal ECG When compared with ECG of 28-NOV-2020 19:35, MANUAL COMPARISON REQUIRED, DATA IS UNCONFIRMED Confirmed by MUSHTAQ DOMINGUEZ, JACQUELINE ([id number]), acquisitions editor NORA POLK ([id number]) on 12/06/2020 10:31:36 AM Referred By: ANA Confirmed By:JACQUELINE LANDIN MD
[2020-11-28 22:41] VITALS: BMI 35.6
[2020-11-28 22:43] VITALS: BP 154/71; PULSE 91; RESP 18; TEMP 36.7; O2SAT 99
[2020-11-28 22:54] VITALS: PULSE 82
[2020-11-28 23:13] VITALS: BP 147/77; PULSE 74; RESP 18; TEMP 36.1; O2SAT 98
[2020-11-28 23:18] LABS: Magnesium 2.2 mg/dL (1.6-2.6)
[2020-11-28 23:28] VITALS: RESP 16; O2SAT 98
[2020-11-28] MEDS: Enoxaparin 40 MG/0.4 ML Syringe SC (23:54)
[2020-11-28] MEDS: Furosemide 40 MG/4 ML Vial IV (23:54)
[2020-11-28] MEDS: 0.9% Saline Lock 10 ML Syringe IV (23:56)
[2020-11-29] VITALS (7 sets, daily range): BP systolic 106–121; BP diastolic 60–63; PULSE 82–100; RESP 16–18; TEMP 36.7–37; O2SAT 93–98
[2020-11-29 02:56] LABS: Anion Gap 7 (5-15); BUN 13 mg/dL (7-18); BUN/Creat Ratio 15.2 RATIO (10-20); Calcium,Total 8.9 mg/dL (8.5-10.1); Chloride 104 mmol/L (98-107); Cholesterol 147 mg/dL (200); Creatinine, Serum 0.86 mg/dL (0.55-1.02); EST Glomerular Filtration Rate 68 mL/min (>60); Est Glom Filt Rate - Afr Amer 82 mL/min (>60); Estimated Creatinine Clearance 51.28 ml/min; Glucose 108 mg/dL (74-106); High Density Lipoprotein 62 mg/dL; Potassium 3.2 mmol/L (3.5-5.1); Sodium Level 139 mmol/L (136-145); Thyroid Stim Hormone (TSH) 2.12 uIU/mL (0.358-3.74); Triglycerides 53 mg/dL; Very Low Density Lipoprotein 11 mg/dL (5-40)
--- NOTE | 2020-11-29 05:55 | ECHOCS_ITS ---
Reason For Study: CHF Procedure This was a 2D Doppler, Color Flow transthoracic echocardiogram. The study was technically difficult. Contrast injection was performed. Exam performed in department. Left Ventricle Normal LV size. Left ventricular systolic function is normal. The estimated ejection fraction is 65 %. Diastolic function is indeterminate. No regional wall motion abnormalities noted. Right Ventricle Normal RV size. Normal systolic function. Atria Normal left atrium. Normal right atrium. No doppler evidence for ASD. Mitral Valve There is no mitral annular calcification. Normal mitral valve. Trivial mitral valve insufficiency. Tricuspid Valve Normal tricuspid valve. Trivial tricuspid valve insufficiency. Right ventricular systolic pressure estimated to be 31 mmHg. Aortic Valve Trisinus/trileaflet aortic valve. Normal aortic valve. Pulmonic Valve The pulmonic valve is not well visualized. Great Vessels The aortic root is not well visualized. Pericardium/Pleural No pericardial effusion. Medication Diluted definity 2ml given slow IV push to enhance endocardial definition. MMode/2D Measurements & Calculations LVIDd: 3.3 cm IVSd: 1.3 cm LAV(MOD-bp): 39.6 ml LVIDs: 2.5 cm LVPWd: 1.2 cm RVDd: 3.6 cm FS: 24.8 % LAV(MOD-bp) Indexed: 19.2 ml/m2 LAV(MOD-sp2): 43.6 ml LAV(MOD-sp4): 33.0 ml LA A4 area: 13.9 cm2 RA A4 area: 11.7 cm2 Time Measurements MV dec time: 0.23 sec Doppler Measurements & Calculations MV E max [place]: 85.5 cm/sec Lat Peak E' [place]: 5.6 cm/sec Med Peak E' [place]: 5.7 cm/sec MV A max [place]: 141.9 cm/sec E/E' lat: 15.2 E/E' med: 15.1 MV E/A: 0.60 MV V2 max: 157.0 cm/sec MV P1/2t max [place]: 89.6 cm/sec Ao V2 max: 161.8 cm/sec MV max P.9 mmHg MV P1/2t: 102.2 msec Ao max P.5 mmHg MV V2 mean: 88.9 cm/sec MV mean P.6 mmHg MV dec slope: 256.7 cm/sec2 MV V2 VTI: 31.5 cm MVA(P1/2t): 2.2 cm2 LV V1 max: 126.3 cm/sec PA V2 max: 103.0 cm/sec TR max [place]: 264.3 cm/sec LV V1 max P.4 mmHg TR max P.9 mmHg Interpretation Summary The study was technically difficult. Contrast injection was performed. Left ventricular systolic function is normal. The estimated ejection fraction is 65 %. Trivial mitral valve insufficiency. Trivial tricuspid valve insufficiency. Right ventricular systolic pressure estimated to be 31 mmHg. Diastolic function is indeterminate. Ordering Physician: Michael Mcghee Referring Physician: Jesus Ballard M.D. Performed By: Jam Calderón RCS
[2020-11-29] MEDS: Potassium Chloride Oral Tablet 20 MEQ 40 MEQ PO (05:56)
[2020-11-29] MEDS: Aspirin E.C. 81 MG Tablet PO (05:56)
--- NOTE | 2020-11-29 08:11 | PN_ITS ---
Patient Problems: Active and Suspected Problems (Last Reviewed 03/12/20 @ 23:[address] Brendan Rooney MD) SBO (small bowel obstruction) (Acute) Dyspnea (Acute) Fatigue (Acute) CHF exacerbation (Acute) Abdominal pain (Acute) Reason for Visit: Acute congestive heart failure Subjective: Patient is a 75-year-old female with multiple comorbidities admitted with progressive shortness of breath spent of congestive heart failure made admitted to a monitored bed for further management Objective: GENERAL: cooperative HEENT: Atraumatic; EYES; Anicteric, Normal Conjunctiva NECK; supple, normal thyroid, RESPIRATORY: Diminished to auscultation CARDIOVASCULAR: Regular S1 S2, GI: soft, normoactive bowel sounds, : No Renal angle tenderness; EXTREMITIES: No edema, no clubbing, MUSCULOSKELETAL: no muscle waisting NEURO: Awake; no lateralizing signs. SKIN: No Rash PSYCH; Flat affect Vitals/I&O's: Vital Signs Temp Pulse Resp BP Pulse Ox 98.6 F 100 16 106/60 95 11/29/20 04:43 11/29/20 07:00 11/29/20 04:43 11/29/20 04:43 11/29/20 04:43 Oxygen Delivery Method Room Air Weight: 97.2 kg Body Mass Index (BMI) 35.6 Intake and Output for Last 24 Hours 11/27/20 11/28/20 11/29/20 23:59 23:59 23:59 Intake Total 120 / 120 120 / 120 Output Total 2100 / 2100 Balance 120 / 120 -1979 / -1980 Microbiology Past 72 Hours 11/28/20 21:30 Mucosa - Nose SARS-CoV-2 Antigen (Rapid) - Final Laboratory Results 11/28/20 19:30: WBC 8.3, RBC 3.96 L, Hgb 12.3, Hct 36.5 L, MCV 92.2, MCH 31.1, MCHC 33.7, RDW Std Deviation 45.6 H, RDW Coeff of Unique 13.6, Plt Count 339, MPV 9.0, Immature Gran % (Auto) 0.200, Neut % (Auto) 65.7, Lymph % (Auto) 20.6, [place] % (Auto) 9.4, Eos % (Auto) 3.5, Baso % (Auto) 0.6, Absolute Neuts (auto) 5.4, Absolute Lymphs (auto) 1.70, Nucleated RBC % 0 11/28/20 19:30: Sodium 142, Potassium 3.6, Chloride 107, Carbon Dioxide 28.0, Anion Gap 7, BUN 16, Creatinine 1.06 H, Estim Creat Clear Calc 41.61, Est GFR (MDRD) Af Amer 65, Est GFR (MDRD) Non-Af 53 L, BUN/Creatinine Ratio 15.1, Glucose 133 H, Calcium 9.1, Total Bilirubin 0.40, AST 25, ALT 36, Alkaline Phosphatase 110, Troponin I < 0.015, Total Protein 7.4, Albumin 3.4, Globulin 4.0, Albumin/Globulin Ratio 0.8 L 11/28/20 19:34: B-Natriuretic Peptide 11.6 11/28/20 22:53: Magnesium 2.2 11/28/20 22:53: Troponin I < 0.015 11/29/20 01:50: Sodium 139, Potassium 3.2 L, Chloride 104, Carbon Dioxide 28.0, Anion Gap 7, BUN 13, Creatinine 0.86, Estim Creat Clear Calc 51.28, Est GFR (MDRD) Af Amer 82, Est GFR (MDRD) Non-Af 68, BUN/Creatinine Ratio 15.2, Glucose 108 H, Calcium 8.9, Triglycerides 53, Cholesterol 147, LDL Cholesterol 74, VLDL Cholesterol 11, HDL Cholesterol 62, TSH 2.12 11/29/20 01:50: Troponin I < 0.015 Current Medications Acetaminophen (Acetaminophen 325 Mg Tablet) 650 mg PO Q6H PRN PRN PRN Reason: Pain Score 1-10/Temp > 100.7 F Al Hydroxide/Mg Hydroxide (Mag Hydrox/Al Hydrox/Simeth 30 Ml Udc) 30 ml PO Q6H PRN PRN PRN Reason: Gastric Burning Aspirin (Aspirin E.C. 81 Mg Tablet) [facility] Last Admin: 11/29/20 05:56 Dose: 81 mg Documented by: Atorvastatin Calcium (Atorvastatin Calcium 40 Mg Tablet) 40 mg PO QHS [facility] Last Admin: 11/28/20 23:21 Dose: Not Given Documented by: Cholecalciferol (Cholecalciferol (Vit D3) 1,000 Unit (25mcg)) 1,000 unit PO DAILY [facility] Enoxaparin Sodium (Enoxaparin 40 Mg/0.4 Ml Syringe) 40 mg SC DAILY [facility] Last Admin: 11/28/20 23:54 Dose: 40 mg Documented by: Fluoxetine HCl (Fluoxetine 10 Mg Capsule) 10 mg PO DAILY [facility] Folic Acid (Folic Acid 1 Mg Tablet) [facility] Furosemide (Furosemide 40 Mg/4 Ml Vial) 40 mg IV BID@1000,1800 [facility] Last Admin: 11/28/20 23:54 Dose: 40 mg Documented by: Hydroxychloroquine Sulfate (Hydroxychloroquine 200 Mg Tablet) [facility] Morphine Sulfate (Morphine 2 Mg/Ml Syringe) 2 mg IV Q3H PRN PRN PRN Reason: Pain Score 6-10 Oxycodone HCl (Oxycodone 5 Mg Tablet) 5 mg PO Q4H PRN PRN PRN Reason: Pain Score 4-5 Potassium Chloride (Potassium Chloride Oral Tablet 20 Meq) 40 meq PO BIDCM [facility] Stop: 12/01/20 05:39 Last Admin: 11/29/20 05:56 Dose: 40 meq Documented by: Senna/Docusate Sodium (Senna/Docusate Sodium 1 Tablet) 2 tablet PO BID PRN PRN PRN Reason: Constipation Sodium Chloride (0.9% Saline Lock 10 Ml Syringe) 10 - 40 ml IV UD PRN PRN Reason: SALINE FLUSH Last Admin: 11/28/20 23:56 Dose: 20 ml Documented by: STROKE Vital Signs/Narrative: Vital Signs Temp Pulse Resp BP Pulse Ox 11/29/20 07:00 100 11/29/20 04:43 98.6 F 82 16 106/60 95 Medical Necessity - Tobacco Use Smoking Status: Former smoker Tobacco Use: Cigarettes Assessment/Plan All Active Problems (Last Reviewed 03/12/20 @ 23:[address] Brendan Rooney MD) SBO (small bowel obstruction) (Acute) Dyspnea (Acute) Fatigue (Acute) CHF exacerbation (Acute) Abdominal pain (Acute) Patient is a 75-year-old female with multiple comorbidities admitted with progressive shortness of breath spent of congestive heart failure made admitted to a monitored bed for further management 1. Acute congestive heart failure ?Suspected to be CHF with preserved ejection fraction, to a monitored bed where patient is currently being managed with fluid restriction, daily I's and O's, daily weight, and administration of Lasix. 2D echo was ordered for EF assessment nuclear stress test 2. Hypertension - Blood pressure controlled, home medications continued with dose adjustment as needed 3. Dyslipidemia -Patient is on statin therapy, continued at home dose 4. Rheumatoid arthritis ?Patient is on methotrexate and Plaquenil did continue 5. History of colon cancer ?Status post colectomy patient has remained in remission for 6 years 6. Obstructive sleep apnea ?Patient CPAP at night 7. Obesity with BMI of 34.6 ?Weight loss advised 8. DVT prophylaxis -Lovenox OBSV E&M: [id number] Subsequent observation care L3
--- NOTE | 2020-11-29 10:12 | STRESSREP_ITS ---
Stress Test Report Date: 11-29-2020 Procedure: Pharmacologic stress nuclear imaging study Indications: Shortness of breath/dyspnea on exertion Consent: Per the patient Procedure: The patient underwent pharmacologic (Regadenoson 0.4mg ) evaluation with a peak heart rate of 97 beats per minute (67%predicted maximal heart rate) and a peak blood pressure of 138/66 mmHg. The baseline ECG demonstrated normal sinus rhythm; incomplete left bundle branch block pattern. The peak pharmacologic ECG demonstrated no obvious ECG changes. There was a rare PVC during recovery. There was no complaint of chest discomfort during pharmacologic infusion or recovery. The examination was discontinued secondary to completion of protocol. Impression: 1. Pharmacologic (Regadenoson) evaluation 2. Peak pharmacologic ECG with no obvious ECG changes. 3. There was a rare PVC during recovery. 4. Nuclear images pending Myocardial perfusion imaging study: Technique: The patient was injected with 13.8 millicuries of technetium 99m Cardiolite and subsequently rest SPECT Cardiolite nuclear imaging was obtained in the horizontal long, vertical long, and short axis views. The patient underwent pharmacologic (Regadenoson) evaluation with a peak heart rate of 97 beats per minute (67% percent predicted maximal heart rate) and a peak blood pressure of 138/66 mmHg. The patient was injected with 43.7 millicuries of technetium 99m Cardiolite and subsequently stress SPECT Cardiolite nuclear imaging was obtained in the horizontal long, vertical long, and short axis views. A gated Cardiolite study at peak stress was obtained. Interpretation: Rest and stress SPECT Cardiolite nuclear imaging status post realignment, normalization, and attenuation correction demonstrate relative uniform tracer uptake and myocardial perfusion appearing within normal limits. There is end systolic thickening and brightening. The gated Cardiolite study demonstrates myocardial thickening and inward wall motion. The reported LVEF is 54%. Impression: 1. Rest and stress SPECT Cardiolite nuclear imaging demonstrate relative uniform tracer uptake and myocardial perfusion appearing within normal limits. 2. The gated Cardiolite study reports an LVEF of 54%. This note was generated with mGaadiation software. It may contain incorrect words, spelling, and punctuation that were not noted in checking the note before signing.
[2020-11-29] MEDS: Folic Acid 1 MG Tablet 2 MG PO (10:44)
[2020-11-29] MEDS: FLUoxetine 10 MG Capsule PO (10:45)
[2020-11-29] MEDS: Hydroxychloroquine 200 MG Tablet PO (10:45)
[2020-11-29] MEDS: Furosemide 40 MG/4 ML Vial IV (10:48)
[2020-11-29] MEDS: 0.9% Saline Lock 10 ML Syringe IV (10:48)
[2020-11-29] MEDS: Enoxaparin 40 MG/0.4 ML Syringe SC (10:50)
--- NOTE | 2020-11-29 12:26 | PCM.DC ---
- Discharge Diagnoses Current Active Problems: Current Active and Chronic Problems (Last Reviewed 03/12/20 @ 23:[address] Brendan Rooney MD) SBO (small bowel obstruction) (Acute) Dyspnea (Acute) Fatigue (Acute) CHF exacerbation (Acute) History of colonoscopy (Chronic ~2015) History of hernia repair (Chronic) History of section (Chronic) History of colectomy (Chronic ~2001) Abdominal pain (Acute) History of colon cancer (Chronic) Rheumatoid arthritis (Chronic) Hypertension (Chronic) You will use the following diet at home:: Fluid restricted (specify 2000 mls, 1500 mls) - 1999 Allergies/Adverse Reactions: Allergies Penicillins [PCN] Allergy (Verified 11/28/20 19:46) Rash Sulfa (Sulfonamide Antibiotics) Allergy (Verified 11/28/20 19:46) Rash azithromycin [From Zithromax] Adverse Reaction (Verified 11/28/20 19:46) Nausea/Vom/Diarrhea codeine Adverse Reaction (Verified 11/28/20 19:46) Other VISION PROBLEMS hydrochlorothiazide Adverse Reaction (Verified 11/28/20 19:46) Rash nitroglycerin [From Nitroglyn] Adverse Reaction (Verified 11/28/20 23:17) Other Prev. unresponsive with administration. Medications to take at Discharge Folic Acid 2 tab PO DAILY 10/20/15 Methotrexate Sodium [Methotrexate] 17.5 mg PO QWEEK 10/20/15 Fluoxetine [Prozac] 10 mg PO DAILY 10/21/15 Cholecalciferol (Vitamin D3) [Vitamin D3] 1,000 unit PO DAILY 12/25/17 Aspirin [Aspirin EC] 81 mg PO DAILY 12/24/19 Hydroxychloroquine [Plaquenil] 200 mg PO DAILY 12/24/19 Ascorbic Acid [Vitamin C] 500 mg PO DAILY 03/12/20 Amlodipine Besylate [Norvasc] 5 mg PO DAILY 11/28/20 Atorvastatin Calcium [Lipitor] 10 mg PO DAILY 11/28/20 Tylenol 1,000 mg PO PRN PRN 11/28/20 Furosemide [Lasix] 40 mg PO DAILY #30 tab 11/29/20 Potassium Chloride Oral Tablet [K-Dur] 20 meq PO BIDCM #60 tab 11/29/20 The following prescriptions were given: Potassium Chloride Oral Tablet [K-Dur] 20 meq PO BIDCM #60 tab Transmission Status: Pending to [facility] Furosemide [Lasix] 40 mg PO DAILY #30 tab Transmission Status: Pending to [facility] Primary Care Physician: eJsus Ballard MD [Primary Care Provider] - Please follow up with your Primary Care Physician in: IN 1-2 WEEKS Test Results: Test results from this visit will be discussed in further detail at your follow-up appointment, if applicable. Proposed Discharge Date: 11/29/20
--- NOTE | 2020-11-29 12:58 | PCM.DC.SUM ---
Discharge Date and Diagnosis - Problem List Patient Problems: Active and Suspected Problems (Last Reviewed 03/12/20 @ 23:[address] Brendan Rooney MD) SBO (small bowel obstruction) (Acute) Dyspnea (Acute) Fatigue (Acute) CHF exacerbation (Acute) Abdominal pain (Acute) Date of Admission: 11/28/20 Date of Discharge: 11/29/20 - Primary Discharge Diagnosis Acute Problems: Active Problems (Last Reviewed 03/12/20 @ 23:[address] Brendan Rooney MD) SBO (small bowel obstruction) (Acute) Dyspnea (Acute) Fatigue (Acute) CHF exacerbation (Acute) Abdominal pain (Acute) - Secondary Discharge Diagnosis Chronic Problems: Chronic Problems (Last Reviewed 03/12/20 @ 23:[address] Brendan Rooney MD) History of colonoscopy (Chronic ~2015) History of hernia repair (Chronic) History of section (Chronic) History of colectomy (Chronic ~2001) History of colon cancer (Chronic) Rheumatoid arthritis (Chronic) Hypertension (Chronic) Hospital Course and Treatment Imaging Results: 11/29/20 05:55 Echo Complete W/ Contrast [ECHO] Routine Nuclear Stress Test - Chemical [NM] AM (NON MEDS) Operations: None Procedures: 2-D Echocardiogram, Nuclear stress test Summary of Care Provided: T Patient is a 75-year-old female with multiple comorbidities admitted with progressive shortness of breath spent of congestive heart failure made admitted to a monitored bed for further management 1. Acute congestive heart failure ?Suspected to be CHF with preserved ejection fraction, to a monitored bed where patient is currently being managed with fluid restriction, daily I's and O's, daily weight, and administration of Lasix. 2D echo was ordered for EF assessment nuclear stress test Nuclear stress test was negative for stress-induced ischemia, 2D echo demonstrated EF of 65%. Patient was discharged home on Lasix and instructed to follow-up with PCP for subsequent management 2. Hypertension - Blood pressure controlled, home medications continued with dose adjustment as needed 3. Dyslipidemia -Patient is on statin therapy, continued at home dose 4. Rheumatoid arthritis ?Patient is on methotrexate and Plaquenil did continue 5. History of colon cancer ?Status post colectomy patient has remained in remission for 6 years 6. Obstructive sleep apnea ?Patient CPAP at night 7. Obesity with BMI of 34.6 ?Weight loss advised 8. DVT prophylaxis -Lovenox Left ventricular systolic function is normal. The estimated ejection fraction is 65 %. Trivial mitral valve insufficiency. Trivial tricuspid valve insufficiency. Right ventricular systolic pressure estimated to be 31 mmHg. Diastolic function is indeterminate. Patient Problems: Active and Suspected Problems (Last Reviewed 03/12/20 @ 23:[address] Brendan Rooney MD) SBO (small bowel obstruction) (Acute) Dyspnea (Acute) Fatigue (Acute) CHF exacerbation (Acute) Abdominal pain (Acute) Objective: GENERAL: cooperative HEENT: Atraumatic; EYES; Anicteric, Normal Conjunctiva NECK; supple, normal thyroid, RESPIRATORY: Diminished to auscultation CARDIOVASCULAR: Regular S1 S2, GI: soft, normoactive bowel sounds, : No Renal angle tenderness; EXTREMITIES: No edema, no clubbing, MUSCULOSKELETAL: no muscle waisting NEURO: Awake; no lateralizing signs. SKIN: No Rash PSYCH; Flat affect - Physical Exam Vitals/I&O's: Vital Signs Temp Pulse Resp BP Pulse Ox 98.0 F 84 18 121/63 H 98 11/29/20 12:32 11/29/20 12:32 11/29/20 12:32 11/29/20 12:32 11/29/20 12:32 Oxygen Delivery Method Room Air Weight: 97.2 kg Body Mass Index (BMI) 35.6 Intake and Output for Last 24 Hours 11/27/20 11/28/20 11/29/20 23:59 23:59 23:59 Intake Total 120 / 120 240 / 240 Output Total 2150 / 2150 Balance 120 / 120 -1910 / -1910 Microbiology Past 72 Hours 11/28/20 21:30 Mucosa - Nose SARS-CoV-2 Antigen (Rapid) - Final Laboratory Results 11/28/20 19:30: WBC 8.3, RBC 3.96 L, Hgb 12.3, Hct 36.5 L, MCV 92.2, MCH 31.1, MCHC 33.7, RDW Std Deviation 45.6 H, RDW Coeff of Unique 13.6, Plt Count 339, MPV 9.0, Immature Gran % (Auto) 0.200, Neut % (Auto) 65.7, Lymph % (Auto) 20.6, Treasure % (Auto) 9.4, Eos % (Auto) 3.5, Baso % (Auto) 0.6, Absolute Neuts (auto) 5.4, Absolute Lymphs (auto) 1.70, Nucleated RBC % 0 11/28/20 19:30: Sodium 142, Potassium 3.6, Chloride 107, Carbon Dioxide 28.0, Anion Gap 7, BUN 16, Creatinine 1.06 H, Estim Creat Clear Calc 41.61, Est GFR (MDRD) Af Amer 65, Est GFR (MDRD) Non-Af 53 L, BUN/Creatinine Ratio 15.1, Glucose 133 H, Calcium 9.1, Total Bilirubin 0.40, AST 25, ALT 36, Alkaline Phosphatase 110, Troponin I < 0.015, Total Protein 7.4, Albumin 3.4, Globulin 4.0, Albumin/Globulin Ratio 0.8 L 11/28/20 19:34: B-Natriuretic Peptide 11.6 11/28/20 22:53: Magnesium 2.2 11/28/20 22:53: Troponin I < 0.015 11/29/20 01:50: Sodium 139, Potassium 3.2 L, Chloride 104, Carbon Dioxide 28.0, Anion Gap 7, BUN 13, Creatinine 0.86, Estim Creat Clear Calc 51.28, Est GFR (MDRD) Af Amer 82, Est GFR (MDRD) Non-Af 68, BUN/Creatinine Ratio 15.2, Glucose 108 H, Calcium 8.9, Triglycerides 53, Cholesterol 147, LDL Cholesterol 74, VLDL Cholesterol 11, HDL Cholesterol 62, TSH 2.12 11/29/20 01:50: Troponin I < 0.015 Current Medications Acetaminophen (Acetaminophen 325 Mg Tablet) 650 mg PO Q6H PRN PRN PRN Reason: Pain Score 1-10/Temp > 100.7 F Al Hydroxide/Mg Hydroxide (Mag Hydrox/Al Hydrox/Simeth 30 Ml Udc) 30 ml PO Q6H PRN PRN PRN Reason: Gastric Burning Aspirin (Aspirin E.C. 81 Mg Tablet) [facility] Admin: 11/29/20 05:56 Dose: 81 mg Documented by: Atorvastatin Calcium (Atorvastatin Calcium 40 Mg Tablet) 40 mg PO QHS [facility] Last Admin: 11/28/20 23:21 Dose: Not Given Documented by: Cholecalciferol (Cholecalciferol (Vit D3) 1,000 Unit (25mcg)) 1,000 unit PO DAILY [facility] Last Admin: 11/29/20 10:45 Dose: 1,000 unit Documented by: Enoxaparin Sodium (Enoxaparin 40 Mg/0.4 Ml Syringe) 40 mg SC DAILY [facility] Last Admin: 11/29/20 10:50 Dose: 40 mg Documented by: Fluoxetine HCl (Fluoxetine 10 Mg Capsule) 10 mg PO DAILY [facility] Last Admin: 11/29/20 10:45 Dose: 10 mg Documented by: Folic Acid (Folic Acid 1 Mg Tablet) [facility] Last Admin: 11/29/20 10:44 Dose: 2 mg Documented by: Furosemide (Furosemide 40 Mg/4 Ml Vial) 40 mg IV BID@1000,1800 [facility] Last Admin: 11/29/20 10:48 Dose: 40 mg Documented by: Hydroxychloroquine Sulfate (Hydroxychloroquine 200 Mg Tablet) [facility] Last Admin: 11/29/20 10:45 Dose: 200 mg Documented by: Morphine Sulfate (Morphine 2 Mg/Ml Syringe) 2 mg IV Q3H PRN PRN PRN Reason: Pain Score 6-10 Oxycodone HCl (Oxycodone 5 Mg Tablet) 5 mg PO Q4H PRN PRN PRN Reason: Pain Score 4-5 Potassium Chloride (Potassium Chloride Oral Tablet 20 Meq) [facility] Stop: 12/01/20 05:39 Last Admin: 11/29/20 05:56 Dose: 40 meq Documented by: Senna/Docusate Sodium (Senna/Docusate Sodium 1 Tablet) 2 tablet PO BID PRN PRN PRN Reason: Constipation Sodium Chloride (0.9% Saline Lock 10 Ml Syringe) 10 - 40 ml IV UD PRN PRN Reason: SALINE FLUSH Last Admin: 11/29/20 10:48 Dose: 10 ml Documented by: Discharge Diet: Low fat/ Low Cholesterol, 8 Cup Fluid Restriciton Discharge Activity: Return to Normal Activity Home Medications: Medications to take at Discharge Folic Acid 2 tab PO DAILY 10/20/15 Methotrexate Sodium [Methotrexate] 17.5 mg PO QWEEK 10/20/15 Fluoxetine [Prozac] 10 mg PO DAILY 10/21/15 Cholecalciferol (Vitamin D3) [Vitamin D3] 1,000 unit PO DAILY 12/25/17 Aspirin [Aspirin EC] 81 mg PO DAILY 12/24/19 Hydroxychloroquine [Plaquenil] 200 mg PO DAILY 12/24/19 Ascorbic Acid [Vitamin C] 500 mg PO DAILY 03/12/20 Amlodipine Besylate [Norvasc] 5 mg PO DAILY 11/28/20 Atorvastatin Calcium [Lipitor] 10 mg PO DAILY 11/28/20 Tylenol 1,000 mg PO PRN PRN 11/28/20 Furosemide [Lasix] 40 mg PO DAILY #30 tab 11/29/20 Potassium Chloride Oral Tablet [K-Dur] 20 meq PO BIDCM #60 tab 11/29/20 Following Prescriptions Were Given to Patient: Potassium Chloride Oral Tablet [K-Dur] 20 meq PO BIDCM #60 tab Transmission Status: Received by [facility] Furosemide [Lasix] 40 mg PO DAILY #30 tab Transmission Status: Received by [facility] Primary Care Physician: Jesus Ballard MD [Primary Care Provider] - Please follow up with your Primary Care Physician in: IN 1-2 WEEKS Disposition: Home Minutes spent on discharge:: 45 Patient Condition:: Stable Medical Necessity - Tobacco Use Smoking Status: Former smoker Tobacco Use: Cigarettes Meaningful Use Info Meaningful Use Diagnoses (Choose all that apply): None applicable OBSV E&M: 48657 Observation care discharge
--- NOTE | 2020-11-29 13:05 | CASEMGMT ---
RN CM in to discuss DC planning with pt. Pt states she has a dtr and at home who take good care of her. She denies any need for therapy or HHC. Pt made aware that if she should change her mind once dc'd to notify her PCP and it could be set up. Pt voices understanding. No further needs at this time.
--- NOTE | 2020-11-29 13:27 | PHA.DC.MC ---
Pharmacy Service has performed discharge medication reconciliation and counseling for this patient. 1. FUROSEMIDE 40MG PO DAILY 2. POTASSIUM CHLORIDE 20MEQ PO BIDCM The patient's discharge medication list was reviewed for discrepancies and discrepancies were resolved. Home Medications Folic Acid 2 tab PO DAILY 10/20/15 Methotrexate Sodium [Methotrexate] 17.5 mg PO QWEEK 10/20/15 Fluoxetine [Prozac] 10 mg PO DAILY 10/21/15 Cholecalciferol (Vitamin D3) [Vitamin D3] 1,000 unit PO DAILY 12/25/17 Aspirin [Aspirin EC] 81 mg PO DAILY 12/24/19 Hydroxychloroquine [Plaquenil] 200 mg PO DAILY 12/24/19 Ascorbic Acid [Vitamin C] 500 mg PO DAILY 03/12/20 Amlodipine Besylate [Norvasc] 5 mg PO DAILY 11/28/20 Atorvastatin Calcium [Lipitor] 10 mg PO DAILY 11/28/20 Tylenol 1,000 mg PO PRN PRN 11/28/20 Furosemide [Lasix] 40 mg PO DAILY #30 tab 11/29/20 Potassium Chloride Oral Tablet [K-Dur] 20 meq PO BIDCM #60 tab 11/29/20 The patient was counseled on the following discharge medications and changes in medications for homegoing were reviewed. The Reason for Use, instructions for use, and potential side effects were reviewed for all new medications. The patient's questions regarding all of their medications were answered. The patient was able to verbally demonstrate an understanding of their discharge medications.
== END 2020-11-29 14:05 | disposition home or self-care (01) ==
LOC: ED 21:49 → PCU 22:27
PROVIDERS: Admitting Provider Internal Medicine; Emergency Provider Emergency Medicine; PCP Internal Medicine; Visit Provider Internal Medicine
DX: I11.0 Hypertensive heart disease with heart failure (principal); R06.02 Shortness of breath; R60.0 Localized edema; M06.9 Rheumatoid arthritis, unspecified; G47.33 Obstructive sleep apnea (adult) (pediatric); I50.9 Heart failure, unspecified; I44.7 Left bundle-branch block, unspecified; Z87.891 Personal history of nicotine dependence; Z79.899 Other long term (current) drug therapy; Z79.82 Long term (current) use of aspirin; Z85.038 Personal history of other malignant neoplasm of large intestine; E78.5 Hyperlipidemia, unspecified; E66.9 Obesity, unspecified; Z68.34 Body mass index [BMI] 34.0-34.9, adult; I08.1 Rheumatic disorders of both mitral and tricuspid valves
CPT/HCPCS: 36415; 71275; 78452; 80048; 80053; 80061; 83735; 83880; 84443; 84484; 85025; 85379; 87426; 93005; 93017; 93306; 96372; 96374; 96376; 99218; 99251; 99283; A9500; Q9957; Q9967; A4216; C8929; G0378; G0463; J1940; J2785

== ENCOUNTER → 2020-12-01 14:34 | Outpatient (CLI) | payer MEDICARE, BC, SELFPAY ==
[2020-11-28 22:41] VITALS: BMI 35.6
[2020-12-01 17:41] LABS: Absolute Lymphocyte Count 1.65 X10^3/uL (0.83-4.51); Basophil# 0.05 X10^3/uL; Basophil% 0.6 % (0-1); Eosinophil# 0.42 X10^3/uL; Eosinophils% 5.3 % (0-5); Hematocrit 37.6 % (37-47); Hemoglobin 12.5 g/dL (12.0-15.0); Lymphocyte # 1.65 X10^3/ul (4.0); Lymphocyte % 20.8 % (19-41); Mean Corp Hgb Conc 33.2 g/dL (32-36); Mean Corpuscular Hgb 31.2 pg (27.0-32.0); Mean Corpuscular Volume 93.8 fL (81-99); Mean Platelet Vol. 9.9 fl (6.2-12.0); Monocyte# 0.78 X10^3/uL; Monocyte% 9.8 % (0-10); NRBC Flagged by Analyzer 0 % (0-5); Neutrophil # 5.01 X10^3/uL (2.7-7.7); Neutrophil % 63.2 % (47-70); Platelet Count 366 K/mm3 (150-450); RBC Distribution Width CV 13.6 % (11.6-14.6); RBC Distribution Width SD 46.5 fl (35.1-43.9); Red Blood Count 4.01 M/mm3 (4.2-5.4); White Blood Count 7.9 K/mm3 (4.4-11.0)
[2020-12-01 18:06] LABS: ALB/GLOB Ratio 0.8 RATIO (0.9-2.4); AST(SGOT) 26 U/L (15-37); Alanine Aminotransfer ALT/SGPT 27 U/L (13-56); Albumin, Serum 3.4 g/dL (3.2-5.0); Alkaline Phosphatase 108 U/L (45-117); Anion Gap 8 (5-15); BUN 21 mg/dL (7-18); BUN/Creat Ratio 21.1 RATIO (10-20); Calcium,Total 9.2 mg/dL (8.5-10.1); Chloride 103 mmol/L (98-107); EST Glomerular Filtration Rate 57 mL/min (>60); Est Glom Filt Rate - Afr Amer 69 mL/min (>60); Glucose 95 mg/dL (74-106); Potassium 3.8 mmol/L (3.5-5.1); Protein, Total 7.4 g/dL (6.4-8.2); Sodium Level 140 mmol/L (136-145)
== END ==
PROVIDERS: PCP Internal Medicine; Referring Provider Internal Medicine Rheumatology; Visit Provider Internal Medicine Rheumatology
DX: M06.00 Rheumatoid arthritis without rheumatoid factor, unspecified site (principal); G56.03 Carpal tunnel syndrome, bilateral upper limbs; M65.352 Trigger finger, left little finger; M18.0 Bilateral primary osteoarthritis of first carpometacarpal joints; M17.0 Bilateral primary osteoarthritis of knee; K21.9 Gastro-esophageal reflux disease without esophagitis; M47.892 Other spondylosis, cervical region; Z79.899 Other long term (current) drug therapy
CPT/HCPCS: 36415; 80053; 85025

== ENCOUNTER → 2021-01-26 10:25 | Outpatient (CLI) | payer MEDICARE, BC, SELFPAY ==
[2021-01-11 15:22] VITALS: BMI 34.7
--- NOTE | 2021-01-26 10:27 | ART_ITS ---
Reason For Study: LE Weakness Procedure A bilateral lower extremity continuous wave Doppler with analog waveform analysis,segmental pressures,and ankle brachial indexes without exercise. Left Segmental Pressures Left brachial= 144mmHg. Left posterior tibial artery = 146mmHg. Left dorsalis pedis artery = 146mmHg. Right Segmental Pressures Right brachial= 142mmHg. Right posterior tibial artery = 162mmHg. Right dorsalis pedis artery = 159mmHg. Indices The right ankle brachial index by the posterior tibial artery is 1.13. The right ankle brachial index by the dorsalis pedis is 1.10. The left ankle brachial index by the posterior tibial artery is 1.01. The left ankle brachial index by the dorsalis pedis is 1.01. VL/Lower Ext Art Exam w/o Exercis Interpretation Summary Bilateral triphasic flow and no stenosis with JOANIE 1.13 and 1.01. Ordering Physician: [place] Story Referring Physician: [place] Story Performed By: Bettie Myles RDCS/RVT
--- NOTE | 2021-01-27 08:51 | PFTCOMP ---
INTRODUCTION: The patient is a 75-year-old female that presents for pulmonary function studies secondary to a diagnosis of dyspnea. Respiratory therapy reports good patient effort. Bronchodilators were used during testing. INTERPRETATION: Forced expiration spirometry demonstrates no evidence of a large airways obstructive ventilatory defect. There was no significant response to aerosolized bronchodilators. Spirograms are of good quality and plateau normally. Body plethysmography was performed and reveals lung volumes to be within normal limits. Diffusing capacity by single breath CO is also within normal limits. IMPRESSION: Grossly normal pulmonary function studies.
== END ==
PROVIDERS: PCP Internal Medicine; Referring Provider Internal Medicine Cardiovascular Disease; Visit Provider Internal Medicine Cardiovascular Disease
DX: R06.00 Dyspnea, unspecified (principal); R53.1 Weakness; I10 Essential (primary) hypertension; E78.2 Mixed hyperlipidemia; R29.898 Other symptoms and signs involving the musculoskeletal system; I73.9 Peripheral vascular disease, unspecified
CPT/HCPCS: 93923; 94060; 94726; 94729

== ENCOUNTER → 2021-03-08 10:31 | Outpatient (CLI) | payer MEDICARE, BC, SELFPAY ==
[2021-01-11 15:22] VITALS: BMI 34.7
[2021-03-08 12:18] LABS: Absolute Lymphocyte Count 1.73 X10^3/uL (0.83-4.51); Absolute Neutrophil Count 3.4 X10^3/uL (2.0-7.7); Basophil# 0.04 X10^3/uL; Basophil% 0.6 % (0-1); Eosinophil# 0.37 X10^3/uL; Eosinophils% 5.9 % (0-5); Hematocrit 38.3 % (37-47); Hemoglobin 12.5 g/dL (12.0-15.0); Lymphocyte # 1.73 X10^3/ul (0.83-4.51); Lymphocyte % 27.8 % (19-41); Mean Corp Hgb Conc 32.6 g/dL (32-36); Mean Corpuscular Hgb 30.1 pg (27.0-32.0); Mean Corpuscular Volume 92.3 fL (81-99); Mean Platelet Vol. 10.2 fl (6.2-12.0); Monocyte# 0.66 X10^3/uL; Monocyte% 10.6 % (0-10); NRBC Flagged by Analyzer 0 % (0-5); Neutrophil # 3.42 X10^3/uL (2.7-7.7); Neutrophil % 54.9 % (47-70); Platelet Count 298 K/mm3 (150-450); RBC Distribution Width CV 13.8 % (11.6-14.6); RBC Distribution Width SD 46.3 fl (35.1-43.9); Red Blood Count 4.15 M/mm3 (4.2-5.4); White Blood Count 6.2 K/mm3 (4.4-11.0)
[2021-03-08 12:43] LABS: ALB/GLOB Ratio 1.1 RATIO (0.9-2.4); AST(SGOT) 24 U/L (15-37); Alanine Aminotransfer ALT/SGPT 22 U/L (13-56); Albumin, Serum 3.6 g/dL (3.2-5.0); Alkaline Phosphatase 98 U/L (45-117); Anion Gap 7 (5-15); BUN 15 mg/dL (7-18); BUN/Creat Ratio 14.4 RATIO (10-20); Chloride 104 mmol/L (98-107); Creatinine, Serum 1.04 mg/dL (0.55-1.02); EST Glomerular Filtration Rate 55 mL/min (>60); Est Glom Filt Rate - Afr Amer 66 mL/min (>60); Globulin 3.4 g/dL (2.2-4.2); Glucose 101 mg/dL (74-106); Sodium Level 139 mmol/L (136-145)
== END ==
PROVIDERS: PCP Internal Medicine; Referring Provider Internal Medicine Rheumatology; Visit Provider Internal Medicine Rheumatology
DX: M06.00 Rheumatoid arthritis without rheumatoid factor, unspecified site (principal); M70.61 Trochanteric bursitis, right hip; M18.0 Bilateral primary osteoarthritis of first carpometacarpal joints; M17.0 Bilateral primary osteoarthritis of knee; K21.9 Gastro-esophageal reflux disease without esophagitis; M47.892 Other spondylosis, cervical region; E11.9 Type 2 diabetes mellitus without complications; I50.9 Heart failure, unspecified; G47.33 Obstructive sleep apnea (adult) (pediatric); Z79.899 Other long term (current) drug therapy
CPT/HCPCS: 36415; 80053; 85025

== ENCOUNTER → 2021-05-29 09:42 | Outpatient (CLI) | payer MEDICARE, BC, SELFPAY ==
[2021-05-29 12:14] LABS: Absolute Lymphocyte Count 1.89 X10^3/uL (0.83-4.51); Absolute Neutrophil Count 3.7 X10^3/uL (2.0-7.7); Basophil# 0.04 X10^3/uL; Basophil% 0.6 % (0-1); Eosinophil# 0.42 X10^3/uL; Eosinophils% 6.4 % (0-5); Hematocrit 36.1 % (37-47); Hemoglobin 12.1 g/dL (12.0-15.0); Lymphocyte # 1.89 X10^3/ul (0.83-4.51); Lymphocyte % 28.9 % (19-41); Mean Corp Hgb Conc 33.5 g/dL (32-36); Mean Corpuscular Hgb 30.5 pg (27.0-32.0); Mean Corpuscular Volume 90.9 fL (81-99); Monocyte# 0.46 X10^3/uL; NRBC Flagged by Analyzer 0 % (0-5); Neutrophil % 56.8 % (47-70); Platelet Count 317 K/mm3 (150-450); RBC Distribution Width CV 14.9 % (11.6-14.6); Red Blood Count 3.97 M/mm3 (4.2-5.4); White Blood Count 6.5 K/mm3 (4.4-11.0)
[2021-05-29 12:40] LABS: ALB/GLOB Ratio 0.9 RATIO (0.9-2.4); AST(SGOT) 32 U/L (15-37); Alanine Aminotransfer ALT/SGPT 34 U/L (13-56); Albumin, Serum 3.3 g/dL (3.2-5.0); Alkaline Phosphatase 99 U/L (45-117); Anion Gap 3 (5-15); BUN 20 mg/dL (7-18); BUN/Creat Ratio 20.2 RATIO (10-20); Chloride 106 mmol/L (98-107); Creatinine, Serum 0.99 mg/dL (0.55-1.02); EST Glomerular Filtration Rate 58 mL/min (>60); Est Glom Filt Rate - Afr Amer 70 mL/min (>60); Globulin 3.7 g/dL (2.2-4.2); Glucose 88 mg/dL (74-106); Sodium Level 138 mmol/L (136-145)
== END ==
PROVIDERS: PCP Internal Medicine; Referring Provider Internal Medicine Rheumatology; Visit Provider Internal Medicine Rheumatology
DX: M06.00 Rheumatoid arthritis without rheumatoid factor, unspecified site (principal); M65.352 Trigger finger, left little finger; M18.0 Bilateral primary osteoarthritis of first carpometacarpal joints; M17.0 Bilateral primary osteoarthritis of knee; K21.9 Gastro-esophageal reflux disease without esophagitis; M47.892 Other spondylosis, cervical region; E11.9 Type 2 diabetes mellitus without complications; I50.9 Heart failure, unspecified; G47.33 Obstructive sleep apnea (adult) (pediatric); Z79.899 Other long term (current) drug therapy
CPT/HCPCS: 36415; 80053; 85025

== ENCOUNTER → 2021-07-25 22:09 | Outpatient (CLI) | payer MEDICARE, BC, SELFPAY | PROVIDERS: PCP Internal Medicine; Referring Provider Internal Medicine Critical Care Medicine; Visit Provider Internal Medicine Critical Care Medicine | DX: G47.33 Obstructive sleep apnea (adult) (pediatric) (principal) | CPT/HCPCS: 95811 ==

== ENCOUNTER → 2021-08-10 13:21 | Outpatient (CLI) | payer MEDICARE, BC, SELFPAY ==
[2021-08-10 14:58] LABS: Absolute Neutrophil Count 5.3 X10^3/uL (2.0-7.7); Basophil# 0.03 X10^3/uL; Basophil% 0.4 % (0-1); Eosinophil# 0.36 X10^3/uL; Eosinophils% 4.4 % (0-5); Hematocrit 36.6 % (37-47); Hemoglobin 12.2 g/dL (12.0-15.0); Mean Corp Hgb Conc 33.3 g/dL (32-36); Mean Corpuscular Volume 93.1 fL (81-99); Mean Platelet Vol. 9.8 fl (6.2-12.0); Monocyte# 0.62 X10^3/uL; Monocyte% 7.6 % (0-10); NRBC Flagged by Analyzer 0 % (0-5); Neutrophil # 5.34 X10^3/uL (2.7-7.7); Neutrophil % 65.4 % (47-70); Platelet Count 306 K/mm3 (150-450); RBC Distribution Width CV 14.4 % (11.6-14.6); RBC Distribution Width SD 48.8 fl (35.1-43.9); Red Blood Count 3.93 M/mm3 (4.2-5.4); White Blood Count 8.2 K/mm3 (4.4-11.0)
[2021-08-10 15:21] LABS: ALB/GLOB Ratio 0.9 RATIO (0.9-2.4); AST(SGOT) 25 U/L (15-37); Alanine Aminotransfer ALT/SGPT 24 U/L (13-56); Albumin, Serum 3.4 g/dL (3.2-5.0); Alkaline Phosphatase 91 U/L (45-117); Anion Gap 6 (5-15); BUN 19 mg/dL (7-18); BUN/Creat Ratio 18.1 RATIO (10-20); Calcium,Total 9.2 mg/dL (8.5-10.1); Chloride 105 mmol/L (98-107); Creatinine, Serum 1.05 mg/dL (0.55-1.02); EST Glomerular Filtration Rate 54 mL/min (>60); Est Glom Filt Rate - Afr Amer 65 mL/min (>60); Globulin 3.8 g/dL (2.2-4.2); Glucose 111 mg/dL (74-106); Potassium 3.9 mmol/L (3.5-5.1); Protein, Total 7.2 g/dL (6.4-8.2); Sodium Level 140 mmol/L (136-145)
== END ==
PROVIDERS: PCP Internal Medicine; Referring Provider Internal Medicine Rheumatology; Visit Provider Internal Medicine Rheumatology
DX: M06.00 Rheumatoid arthritis without rheumatoid factor, unspecified site (principal); M65.352 Trigger finger, left little finger; M18.0 Bilateral primary osteoarthritis of first carpometacarpal joints; M17.0 Bilateral primary osteoarthritis of knee; K21.9 Gastro-esophageal reflux disease without esophagitis; M47.892 Other spondylosis, cervical region; E11.9 Type 2 diabetes mellitus without complications; I50.9 Heart failure, unspecified; G47.33 Obstructive sleep apnea (adult) (pediatric); Z79.899 Other long term (current) drug therapy
CPT/HCPCS: 36415; 80053; 85025

== ENCOUNTER → 2021-08-13 12:19 | Outpatient (CLI) | payer MEDICARE, BC, SELFPAY ==
[2021-08-13 12:51] VITALS: PULSE 100; PULSE 107; PULSE 71; PULSE 73; PULSE 81; PULSE 89; PULSE 94; O2SAT 93; O2SAT 94; O2SAT 95; O2SAT 96; O2SAT 97; O2SAT 98
--- NOTE | 2021-08-13 15:27 | WT_ITS ---
PSN 6 Minute Walk Test 6 Minute Walk Test 6 Minute Walk Test: 6 Minute Walk Test PSN:6-Minute Walk Test Start: 08/13/21 12:51 Freq: Status: Active Protocol: RESP.6MINW Document 08/13/21 12:51 [facility] (Rec: 08/13/21 12:54 [facility] [id number]) 6 Minute Walk Test Date Performed 08/13/21 Time Performed 12:30 Height 5 ft 6 in Weight: 96.162 kg Weight in Pounds 212.[address]: Tuan Davidson Assistive device used: Cane Pre-test Oxygen Delivery Method Room Air Pulse Ox (%) 98 Pulse Rate (60-100 beats/min) 71 Dyspnea Ashkan Scale (0-10) 0 1st minute Oxygen Delivery Method Room Air Pulse Ox (%) 96 Pulse Rate (60-100 beats/min) 73 Dyspnea Ashkan Scale (0-10) 0 Number of Rests Taken 0 2nd minute Oxygen Delivery Method Room Air Pulse Ox (%) 94 Pulse Rate (60-100 beats/min) 81 Dyspnea Ashkan Scale (0-10) 0 Number of Rests Taken 0 3rd minute Oxygen Delivery Method Room Air Pulse Ox (%) 93 Pulse Rate (60-100 beats/min) 89 Dyspnea Ashkan Scale (0-10) 1 Number of Rests Taken 0 4th minute Oxygen Delivery Method Room Air Pulse Ox (%) 95 Pulse Rate (60-100 beats/min) 94 Dyspnea Ashkan Scale (0-10) 1 Number of Rests Taken 0 5th minute Oxygen Delivery Method Room Air Pulse Ox (%) 94 Pulse Rate (60-100 beats/min) 100 Dyspnea Ashkan Scale (0-10) 1 Number of Rests Taken 0 6th minute Oxygen Delivery Method Room Air Pulse Ox (%) 93 Pulse Rate (60-100 beats/min) 107 H Dyspnea Ashkan Scale (0-10) 1 Number of Rests Taken 0 Post-test Oxygen Delivery Method Room Air Pulse Ox (%) 97 Pulse Rate (60-100 beats/min) 71 Dyspnea Ashkan Scale (0-10) 0 Full Laps Walked 17 Partial Lap, Number of Tiles Walked 43 Total Distance Walked (ft) 1046 Interpretation Interpretation: The patient was able to ambulate 1046 feet over the course of 6 minutes on room air with no assistive devices or breaks. The patient experienced a significant desaturation from 98% at baseline to as low as 93%. Patient also had an element of reflexive tachycardia with a peak heart rate of 107 bpm. These findings are consistent with a respiratory limitation exercise t olerance. Recommendations Recommendations: No supplemental oxygen is indicated at this time. However, patient will need to be followed closely given significant desaturation.
== END ==
PROVIDERS: PCP Internal Medicine; Referring Provider Internal Medicine Critical Care Medicine; Visit Provider Internal Medicine Critical Care Medicine
DX: R06.00 Dyspnea, unspecified (principal)
CPT/HCPCS: 94618

== ENCOUNTER 2021-10-03 04:36 | Inpatient (IN) | payer MEDICARE, BC, SELFPAY ==
[2021-10-03] VITALS (9 sets, daily range): BP systolic 125–151; BP diastolic 65–75; PULSE 75–90; RESP 16–18; TEMP 36.6–37.6; O2SAT 91–98; BMI 34.2; BMI 33.3
--- NOTE | 2021-10-03 04:53 | CT_ITS ---
We are attempting to reach an attending provider to discuss findings. An addendum with communication details will be sent when the communication is complete. STUDY: CT ABDOMEN AND PELVIS WITH CONTRAST REASON FOR EXAM: Female, 76 years old. Abd pain RADIATION DOSAGE (If Supplied By Facility): CTDIvol = ( 23.19 ) mGy, DLP = ( 1465.29 ) mGycm TECHNIQUE: Transaxial images were obtained from the dome of the diaphragm to the symphysis pubis without oral contrast. IV 100mL Isovue-300 was administered. Sagittal and coronal images were reconstructed. Individualized dose optimization techniques were used for this CT. COMPARISON: March 12, 2020 CT abdomen and pelvis FINDINGS: The visualized lung bases are unremarkable. The visualized portions of the heart are within normal limits. Normal liver. Normal gallbladder and extrahepatic biliary system. Normal spleen. Normal pancreas. Normal bilateral adrenal glands. Normal right kidney. Normal left kidney. Normal visualized stomach. There is persistent close proximity of distended small bowel loops to the hernia mesh. There are distended proximal bowel loops and decompressed distal bowel loops as seen on prior study. There is a decompressed appearance of the colon. The appendix is visualized and appears normal. There is partially calcified. Normal inferior vena cava. Normal retroperitoneum. Normal urinary bladder. Normal visualized uterus. There is a large hernia mesh in the anterior abdomen. There are diffuse degenerative changes of the visualized lumbar spine. There is slight anterolisthesis L4-L5 there is a broad disc osteophyte moderate neural foraminal narrowing moderate central stenosis. There is degenerative change at L5-S1. There is a right hip arthroplasty. CT/Abdomen/Pelvis W IV Cont ONLY IMPRESSION: Findings are highly suspicious for recurrent small bowel obstruction associated with adhesions in the anterior abdomen likely associated with the hernia mesh. The zone of transition is in the right to midline abdomen. There is a decompressed appearance of the distal small bowel and colon. Right hip are the plasty Electronically Signed: Georgiana Moreira MD at 6:11 EST Tel , Service support ,
--- NOTE | 2021-10-03 04:55 | EDS_ITS ---
HPI History of Present Illness Chief Complaint: Nausea/Vomiting Narrative Narrative: Patient is a 76-year-old female who states that she did not feel well yesterday starting around 5:00 she states that she did not think much of this and continued to go about her day but around 10 PM began with bouts of generalized abdominal pain and vomiting. She states she has thrown up approximately 10 times since its onset. She denies any hematemesis associated with the vomiting. She states that she cannot hold water down and feels dehydrated and secondary to her concern for need for IV fluids called EMS to bring her in for evaluation [facility] Medical History Abdominal pain Abnormal mammogram of left breast Bowel obstruction Carpal tunnel syndrome CKD (chronic kidney disease) stage 3, GFR 30-59 ml/min Essential hypertension FH: total knee replacement GERD (gastroesophageal reflux disease) History of colon cancer Mixed hyperlipidemia REY on CPAP Polymyalgia rheumatica Rheumatoid arthritis Wrist fracture Home Medications folic acid 2 tab PO DAILY 10/20/15 [History Last Taken 11/28/20 09:30 2 tab] fluoxetine 10 mg PO DAILY 10/21/15 [History Last Taken 11/28/20 09:30 10 mg] cholecalciferol (vitamin D3) 1,000 unit PO DAILY 12/25/17 [History Last Taken 11/28/20 09:30 1000 u] aspirin 81 mg PO DAILY 12/24/19 [History Last Taken 11/28/20 09:30 81 mg] ascorbic acid (vitamin C) 500 mg PO DAILY 03/12/20 [History Last Taken 11/28/20 09:30 500 mg] atorvastatin 10 mg PO DAILY 11/28/20 [History Last Taken 11/28/20 09:30 10 mg] acetaminophen 500 mg tablet 500 mg PO Q6H PRN 01/11/21 [History Last Taken Unknown] amlodipine 5 mg tablet 5 mg PO DAILY 01/11/21 [History Last Taken Unknown] methotrexate sodium 2.5 mg tablet 15 mg PO QWEEK tablet 01/11/21 [History Last Taken Unknown] hydroxychloroquine 200 mg tablet 200 mg PO BID tab 04/13/21 [History Last Taken Unknown] furosemide 40 mg tablet 40 mg PO DAILY #90 tab 07/05/21 [Rx Last Taken Unknown] potassium chloride 20 mEq tablet,extended release(part/cryst) 20 meq PO BIDCM #180 tab 07/05/21 [Rx Last Taken Unknown] Allergy/AdvReac Type Severity Reaction Status Date / Time Penicillins [PCN] Allergy Rash Verified 09/12/21 14:06 Sulfa (Sulfonamide Allergy Rash Verified 09/12/21 14:06 Antibiotics) lisinopril AdvReac Unknown unknown Verified 09/12/21 14:06 azithromycin [From Zithromax] AdvReac Nausea/Vom/ Verified 09/12/21 14:06 Diarrhea codeine AdvReac Other Verified 09/12/21 14:06 hydrochlorothiazide AdvReac Rash Verified 09/12/21 14:06 nitroglycerin AdvReac Other Verified 09/12/21 14:06 [From Nitroglyn] Family History Sister Diabetes Asthma Hypertension Leukemia Brother Heart disease Hypertension Diabetes Father Myocardial infarction CAD (coronary artery disease) Mother Cancer Liver Hypertension Acute arthritis Surgical History History of section History of colectomy (~2001) History of colonoscopy (~2015) History of hernia repair Social History Smoking Status: Former smoker alcohol intake: never substance use type: does not use caffeine: Yes Type: coffee Number of servings: 2 ROS ROS ED Constitutional Constitutional ED: Denies chills or fever(s) ENT ENT ED: Denies sore throat Cardiovascular Cardiovascular: Denies chest pain Respiratory/Chest Respiratory/Chest: Denies cough or dyspnea Gastrointestinal Gastrointestinal: Reports abdominal pain, nausea and vomiting; Denies constipation or diarrhea Genitourinary Genitourinary ED: Denies dysuria Musculoskeletal Musculoskeletal: Denies myalgias Integumentary Denies rash Neurologic Neurologic: Denies headache(s) Hematologic/Lymphatic Hematologic/Lymphatic: Denies easy bleeding or easy bruising EXAM Physical Exam Const Vital Signs: 10/03/21 04:37 Temperature 98.4 F Temperature Source Oral Pulse Rate 75 Respiratory Rate 18 Blood Pressure 142/75 H Blood Pressure Mean 97 Pulse Ox 98 Oxygen Delivery Method Room Air Positive well nourished and well developed General Appearance ED: well developed HEENT Reports dry mucous membranes Mouth ED: Yes dry mucous membranes Mouth: dry mucous membranes Eyes PERRL and EOMs intact bilaterally Neck supple Resp normal respiratory effort and clear to auscultation bilaterally Cardio regular rate and regular rhythm Rate: other Other Details: Radial pulses are plus 2 out of 4 bilaterally are equal and symmetric GI GI Narrative: Abdomen is soft with normal active bowel sounds. There is mild diffuse pain with palpation. There is slight distention noted. No voluntary guarding or rigidity no pulsatile mass Auscultation: normoactive bowel sounds Palpation: soft Extremity normal to inspection Neuro oriented x3 and CN's II-XII intact bilaterally Sensorium / Orientation: alert Motor Exam: strength 5/5 throughout Psych mental status grossly normal Skin no rashes or lesions noted Skin Narrative: Skin turgor is increased MDM MDM MDM Narrative Medical decision making narrative: Patient presented to ER afebrile but slightly hypertensive. She had physical exam findings concerning for dehydration. Her stomach is also slightly distended and she has been having bouts of vomiting and has not had bowel movements or passing any gas. She also has a past medical history of previous obstruction and therefore there is concern for this once again. Secondary to this patient had basic labs obtained as well as a CT scan with IV. Labs show leukocytosis as well as renal insufficiency. CT scan does confirm a recurrent small bowel obstruction secondary to adhesions from the mesh. Therefore at this time general surgery will be contacted to discuss admission. Surgery does recommend NG tube placement based on the fluid in her abdomen. They feel/agree that the white count is stress response and do not want antibiotics provided at this time. Therefore NGT will be placed and patient will be admitted to the hospital for further care. Lab Data Attestation: I reviewed the patient's lab results. Labs: Laboratory Results - last 24 hr 10/03/21 10/03/21 05:00 05:00 WBC 16.1 H RBC 4.91 Hgb 14.8 Hct 44.4 MCV 90.4 MCH 30.1 MCHC 33.3 RDW Std Deviation 47.2 H RDW Coeff of Unique 14.6 Plt Count 355 MPV 9.2 Immature Gran % (Auto) 0.300 Neut % (Auto) 89.9 H Lymph % (Auto) 1.7 L [place] % (Auto) 7.3 Eos % (Auto) 0.4 Baso % (Auto) 0.4 Absolute Neuts (auto) 14.4 H Absolute Lymphs (auto) 0.27 L Nucleated RBC % 0 Sodium 139 Potassium 3.2 L Chloride 99 Carbon Dioxide 26.0 Anion Gap 14 BUN 18 Creatinine 1.38 H Estim Creat Clear Calc 31.45 Est GFR (MDRD) Af Amer 48 L Est GFR (MDRD) Non-Af 39 L BUN/Creatinine Ratio 13.0 Glucose 171 H Calcium 10.6 H Total Bilirubin 0.60 Direct Bilirubin 0.17 AST 27 ALT 32 Alkaline Phosphatase 102 Total Protein 8.5 H Albumin 4.2 Globulin 4.3 H Lipase 38 L Radiography Diagnostic Testing: Clinical Impression(s) from Imaging Studies Abdomen/Pelvis CT 10/03/21 04:53 IMPRESSION: Findings are highly suspicious for recurrent small bowel obstruction associated with adhesions in the anterior abdomen likely associated with the hernia mesh. The zone of transition is in the right to midline abdomen. There is a decompressed appearance of the distal small bowel and colon. Right hip are the plasty Electronically Signed: Georgiana Moreira MD at 6:11 EST Tel , Service support , ADDENDUM: 10/03/21 0637 IMPRESSION: Findings are highly suspicious for recurrent small bowel obstruction associated with adhesions in the anterior abdomen likely associated with the hernia mesh. The zone of transition is in the right to midline abdomen. There is a decompressed appearance of the distal small bowel and colon. Right hip are the plasty N.B. : The above Results were Read Back by Georgiana Moreira MD to Mark Stover DO, and understanding confirmed on 10/03/2021 06:31:01 (ET). Electronically Signed: Georgiana Moreira MD at 6:11 EST Tel , Service support , Discharge Plan Triage Chief Complaint: Nausea/Vomiting ED Provider: Makr Stover Dx/Rx/DC Orders Clinical Impression: SBO (small bowel obstruction), Dehydration Prescriptions: No Action amlodipine 5 mg tablet 5 mg PO DAILY RF: 0 acetaminophen 500 mg tablet 500 mg PO Q6H PRNRF: 0 potassium chloride 20 mEq tablet,ER particles/crystals 20 meq PO BIDCM Qty: 180 RF: 3 furosemide 40 mg tablet 40 mg PO DAILY Qty: 90 RF: 3 folic acid 1 MG tablet 2 tab PO DAILY RF: 0 fluoxetine 10 MG capsule 10 mg PO DAILY RF: 0 methotrexate sodium 2.5 mg tablet 15 mg PO QWEEK RF: 0 cholecalciferol (vitamin D3) 2,000 UNIT capsule 1,000 unit PO DAILY RF: 0 aspirin 81 MG tablet,delayed release (DR/EC) 81 mg PO DAILY RF: 0 hydroxychloroquine 200 mg tablet 200 mg PO BID RF: 0 ascorbic acid (vitamin C) 500 MG capsule 500 mg PO DAILY RF: 0 atorvastatin 10 MG tablet 10 mg PO DAILY RF: 0 Primary Care Provider: Jesus Ballard Referrals: Jesus Ballard MD [Primary Care Provider] - Disposition Disposition: Acute Care Hospital [facility]
[2021-10-03] MEDS: 0.9% Normal Saline 1,000 ML 999 ML IV (05:05)
[2021-10-03] MEDS: Ondansetron 4 MG/2 ML Vial IV (05:05)
[2021-10-03 05:07] LABS: Absolute Lymphocyte Count 0.27 X10^3/uL (0.83-4.51); Absolute Neutrophil Count 14.4 X10^3/uL (2.0-7.7); Basophil# 0.06 X10^3/uL; Basophil% 0.4 % (0-1); Eosinophil# 0.07 X10^3/uL; Eosinophils% 0.4 % (0-5); Hematocrit 44.4 % (37-47); Hemoglobin 14.8 g/dL (12.0-15.0); Lymphocyte # 0.27 X10^3/ul (0.83-4.51); Lymphocyte % 1.7 % (19-41); Mean Corp Hgb Conc 33.3 g/dL (32-36); Mean Corpuscular Hgb 30.1 pg (27.0-32.0); Mean Corpuscular Volume 90.4 fL (81-99); Mean Platelet Vol. 9.2 fl (6.2-12.0); Monocyte# 1.17 X10^3/uL; Monocyte% 7.3 % (0-10); NRBC Flagged by Analyzer 0 % (0-5); Neutrophil # 14.44 X10^3/uL (2.7-7.7); Neutrophil % 89.9 % (47-70); POSITIVE DIFFERENTIAL YES; Platelet Count 355 K/mm3 (150-450); RBC Distribution Width CV 14.6 % (11.6-14.6); RBC Distribution Width SD 47.2 fl (35.1-43.9); Red Blood Count 4.91 M/mm3 (4.2-5.4); White Blood Count 16.1 K/mm3 (4.4-11.0)
[2021-10-03 05:12] LABS: Differential Indicated SCAN CRITERIA MET
[2021-10-03 05:24] LABS: AST(SGOT) 27 U/L (15-37); Alanine Aminotransfer ALT/SGPT 32 U/L (13-56); Albumin, Serum 4.2 g/dL (3.2-5.0); Alkaline Phosphatase 102 U/L (45-117); Anion Gap 14 (5-15); BUN 18 mg/dL (7-18); Bilirubin, Direct 0.17 mg/dL (0.00-0.30); Calcium,Total 10.6 mg/dL (8.5-10.1); Chloride 99 mmol/L (98-107); Creatinine, Serum 1.38 mg/dL (0.55-1.02); EST Glomerular Filtration Rate 39 mL/min (>60); Est Glom Filt Rate - Afr Amer 48 mL/min (>60); Estimated Creatinine Clearance 31.45 ml/min; Globulin 4.3 g/dL (2.2-4.2); Glucose 171 mg/dL (74-106); Lipase 38 U/L (73-393); Potassium 3.2 mmol/L (3.5-5.1); Protein, Total 8.5 g/dL (6.4-8.2); Sodium Level 139 mmol/L (136-145)
--- NOTE | 2021-10-03 06:44 | RAD_ITS ---
STUDY: X-RAY - ABDOMEN/PELVIS REASON FOR EXAM: Female, 76 years old. NG tube -- KUB with both diaphragms for NG/OG Verification TECHNIQUE: Single AP view of the abdomen / pelvis. COMPARISON: CT from earlier today, x-ray from earlier today FINDINGS: Esophagogastric tube extends to the upper abdomen, advanced since prior KUB. Incomplete visualization of the abdomen for tube placement. Operative changes of the abdominal wall partially visualized. Normal visualized osseous structures. RAD/Abdomen Single View (Portable) IMPRESSION: Esophagogastric tube extends to the stomach, advanced since prior abdomen x-ray. Electronically Signed: Randall Tobias MD ([place]) at 8:01 EST , Service support ,
[2021-10-03] MEDS: Oxymetazoline 0.05% 1 SPRAY SPRAY.BTL 2 SPRAY NASAL (07:14)
[2021-10-03] MEDS: Lidocaine 4% 5 ML Ampul 2 ML INHALATION (07:18)
--- NOTE | 2021-10-03 07:26 | NURSING ---
MED SURG CARLEE SMALL BOWEL OBSTRUCTION
--- NOTE | 2021-10-03 07:40 | HP.PCM_ITS ---
HPI - General HPI Narrative FABIO PORTILLO, is a 76 F who presented [facility] earlier this morning after developing symptoms of nausea, vomiting, and acute onset abdominal pain approximately 1700 yesterday. She states she felt these symptoms likely represented a small bowel obstruction as she has experienced with at least 3 prior obstructions. She therefore attempted to swallow a large glass of water and see if that would pass, but unfortunately this resulted in profuse emesis. When the symptoms did not casimiro by 1999, she decided to seek further evaluation. Patient's ER work-up is notable for leukocytosis with left shift. She also has a slight acute kidney injury consistent with likely dehydration and hypokalemia. CT of the abdomen pelvis was performed and showed dilation of the small bowel with a transition zone towards the distal small bowel as there is decompressed small bowel approaching the right colon. Per radiology, and confirmed my independent review, this picture very closely resembles patient's prior CT from 03/12/2020?the last time she was admitted for a small bowel obstruction. On my arrival to the room, patient states that she is feeling better with less pain and no longer feeling nauseous. However, she confirms that she still has not passed flatus or had a bowel movement. Patient states that each prior obstructive event has resolved spontaneously. She also notes that she has done so without the use of an NG tube. She states these experiences seem to stem from a hernia repair with mesh by Dr. Montero in 1994. 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 She also has status post 3 sections prior to that operation. She is currently treated for rheumatoid arthritis with methotrexate given once weekly?last administration was 09/28/2021. [facility] Medical History Abdominal pain Abnormal mammogram of left breast Bowel obstruction Carpal tunnel syndrome CKD (chronic kidney disease) stage 3, GFR 30-59 ml/min Essential hypertension FH: total knee replacement GERD (gastroesophageal reflux disease) History of colon cancer Mixed hyperlipidemia REY on CPAP Polymyalgia rheumatica Rheumatoid arthritis Wrist fracture Home Medications folic acid 2 tab PO DAILY 10/20/15 [History Last Taken 11/28/20 09:30 2 tab] fluoxetine 10 mg PO DAILY 10/21/15 [History Last Taken 11/28/20 09:30 10 mg] cholecalciferol (vitamin D3) 1,000 unit PO DAILY 12/25/17 [History Last Taken 11/28/20 09:30 1000 u] aspirin 81 mg PO DAILY 12/24/19 [History Last Taken 11/28/20 09:30 81 mg] ascorbic acid (vitamin C) 500 mg PO DAILY 03/12/20 [History Last Taken 11/28/20 09:30 500 mg] atorvastatin 10 mg PO DAILY 11/28/20 [History Last Taken 11/28/20 09:30 10 mg] acetaminophen 500 mg tablet 500 mg PO Q6H PRN 01/11/21 [History Last Taken Unknown] amlodipine 5 mg tablet 5 mg PO DAILY 01/11/21 [History Last Taken Unknown] methotrexate sodium 2.5 mg tablet 15 mg PO QWEEK tablet 01/11/21 [History Last Taken Unknown] hydroxychloroquine 200 mg tablet 200 mg PO BID tab 04/13/21 [History Last Taken Unknown] furosemide 40 mg tablet 40 mg PO DAILY #90 tab 07/05/21 [Rx Last Taken Unknown] potassium chloride 20 mEq tablet,extended release(part/cryst) 20 meq PO BIDCM # 180 tab 07/05/21 [Rx Last Taken Unknown] Allergy/AdvReac Type Severity Reaction Status Date / Time Penicillins [PCN] Allergy Rash Verified 09/12/21 14:06 Sulfa (Sulfonamide Allergy Rash Verified 09/12/21 14:06 Antibiotics) lisinopril AdvReac Unknown unknown Verified 09/12/21 14:06 azithromycin [From Zithromax] AdvReac Nausea/Vom/ Verified 09/12/21 14:06 Diarrhea codeine AdvReac Other Verified 09/12/21 14:06 hydrochlorothiazide AdvReac Rash Verified 09/12/21 14:06 nitroglycerin AdvReac Other Verified 09/12/21 14:06 [From Nitroglyn] Family History Sister Diabetes Asthma Hypertension Leukemia Brother Heart disease Hypertension Diabetes Father Myocardial infarction CAD (coronary artery disease) Mother Cancer Liver Hypertension Acute arthritis Surgical History History of section History of colectomy (~2001) History of colonoscopy (~2015) History of hernia repair Social History Smoking Status: Former smoker alcohol intake: never substance use type: does not use caffeine: Yes Type: coffee Number of servings: 2 Vital Signs Vital Signs Vital Signs: 10/03/21 04:37 10/03/21 07:17 10/03/21 07:27 Temperature 98.4 F 99.7 F H Temperature Source Oral Oral Pulse Rate 75 90 90 Respiratory Rate 18 16 16 Blood Pressure 142/75 H 151/72 H 151/72 H Blood Pressure Mean 97 98 98 Pulse Ox 98 94 94 Oxygen Delivery Method Room Air Room Air Room Air Weight Weight: 212 lb Body Mass Index (BMI) 34.2 Physical Exam Const alert, oriented x3 and no apparent distress General Appearance: cooperative GI GI Narrative: Midline laparotomy scar well-healed. Patient's abdomen is soft and only mildly distended. She is nontender to palpation x4 quadrants. Results Lab / Micro Data Result Diagrams: 10/03/21 05:00 10/03/21 05:00 Labs: Laboratory Results - last 24 hr 10/03/21 05:00: WBC 16.1 H, RBC 4.91, Hgb 14.8, Hct 44.4, MCV 90.4, MCH 30.1, MCHC 33.3, RDW Std Deviation 47.2 H, RDW Coeff of Unique 14.6, Plt Count 355, MPV 9.2, Immature Gran % (Auto) 0.300, Neut % (Auto) 89.9 H, Lymph % (Auto) 1.7 L, [place] % (Auto) 7.3, Eos % (Auto) 0.4, Baso % (Auto) 0.4, Absolute Neuts (auto) 14.4 H, Absolute Lymphs (auto) 0.27 L, Nucleated RBC % 0 10/03/21 05:00: Sodium 139, Potassium 3.2 L, Chloride 99, Carbon Dioxide 26.0, Anion Gap 14, BUN 18, Creatinine 1.38 H, Estim Creat Clear Calc 31.45, Est GFR (MDRD) Af Amer 48 L, Est GFR (MDRD) Non-Af 39 L, BUN/Creatinine Ratio 13.0, Glucose 171 H, Calcium 10.6 H, Total Bilirubin 0.60, Direct Bilirubin 0.17, AST 27, ALT 32, Alkaline Phosphatase 102, Total Protein 8.5 H, Albumin 4.2, Globulin 4.3 H, Lipase 38 L Micro: Microbiology 10/03/21 05:00 Nasal Secretion SARS-CoV-2 Antigen (Rapid) - Final Radiology Impression Abdomen/Pelvis CT 10/03/21 04:53 IMPRESSION: Findings are highly suspicious for recurrent small bowel obstruction associated with adhesions in the anterior abdomen likely associated with the hernia mesh. The zone of transition is in the right to midline abdomen. There is a decompressed appearance of the distal small bowel and colon. Right hip are the plasty Electronically Signed: Georgiana Moreira MD at 6:11 EST Tel , Service support , ADDENDUM: 10/03/21 0637 IMPRESSION: Findings are highly suspicious for recurrent small bowel obstruction associated with adhesions in the anterior abdomen likely associated with the hernia mesh. The zone of transition is in the right to midline abdomen. There is a decompressed appearance of the distal small bowel and colon. Right hip are the plasty N.B. : The above Results were Read Back by Georgiana Moreira MD to Mark Stover DO, and understanding confirmed on 10/03/2021 06:31:01 (ET). 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 While patient does have a mild leukocytosis, her exam is reassuring and CT consistent with imaging from a year and a half ago when she was last admitted for a small bowel obstruction. Given her numerous comorbidities?including rheumatoid arthritis on methotrexate and [id number] renal dysfunction I would like to pursue a conservative course of treatment. I have requested placement of a nasogastric tube. Following bowel decompression, will initiate a small bowel series to assess if there is a true transition point and hopefully provide therapeutic benefit as well. I have discussed with the patient that if she were to require surgery, it would likely mean large laparotomy with possible mesh explantation and may require bowel resection. Hospitalist service has been engaged to provide consult and assist with management of the patient's comorbidities. Charges/Coding Visit Charges Inpatient E&M: 95825 Init Hosp L2
[2021-10-03 07:46] LABS: Lactic Acid 1.5 mmol/L (0.4-1.9)
--- NOTE | 2021-10-03 07:47 | RAD_ITS ---
STUDY: X-RAY - ABDOMEN/PELVIS REASON FOR EXAM: Female, 76 years old. ng placement TECHNIQUE: Single AP view of the abdomen / pelvis. COMPARISON: CT earlier today FINDINGS: Esophagogastric tube extends to the upper abdomen. Incomplete visualization of the abdomen for tube placement. Operative changes of the abdominal wall partially visualized. Normal visualized osseous structures. RAD/Abdomen Single View (Portable) IMPRESSION: Esophagogastric tube extends to the stomach. Electronically Signed: Randall Tobias MD ([place]) at 8:00 EST , Service support ,
--- NOTE | 2021-10-03 07:54 | ED.RN ---
NG TUBE PLACED BY THIS RN, PT TOLERATED WELL. 18 FR NG INSERTED INTO RIGHT NARE, HOOKED TO LOW INTERMITTENT SUCTION. XRAY TO CONFIRM PLACEMENT. DR. GUARDADO AT BEDSIDE ADVISES TO PULL NG BACK 5CM. NG MOVED BACK 5CM AND RESECURED. REPEAT XRAY COMPLETED. PER DR. GUARDADO OK TO SECURE.
--- NOTE | 2021-10-03 08:02 | ED.RN ---
PT VOMITTED APPROX 500 ML DURING NG PLACEMENT.
[2021-10-03] MEDS: Potassium Chloride 10mEq/100mL 10 MEQ/100 ML IV.SOLN. 50 MEQ IV BOLUS ×4 (11:01→17:26)
[2021-10-03] MEDS: 0.9% Normal Saline 1,000 ML 100 ML IV (11:01)
--- NOTE | 2021-10-03 13:28 | PCM.PN.HOSP ---
Documented by User: Laurent BEAULIEU 10/03/21 14:13 Subjective Subjective Patient is a 76-year-old female comfortably resting in bed, alert and orient x3. Denies development of any new symptoms overnight. Does not appear in acute distress. Objective Data Objective Data Vital Signs: Vital Signs Temp Pulse Resp BP Pulse Ox 97.9 F 88 18 142/73 H 95 10/03/21 08:56 10/03/21 10:07 10/03/21 08:56 10/03/21 08:56 10/03/21 08:56 Oxygen Delivery Method Room Air Weight: 206 lb 8 oz Body Mass Index (BMI) 33.3 Intake & Output: Intake and Output for Last 24 Hours 10/01/21 10/02/21 10/03/21 23:59 23:59 23:59 Intake Total 1095.83 / 1095.83 Output Total 500 / 500 Balance 595.83 / 595.83 Lab / Micro Data Result Diagrams: 10/03/21 05:00 10/03/21 05:00 Labs: Laboratory Results - last 24 hr 10/03/21 05:00: WBC 16.1 H, RBC 4.91, Hgb 14.8, Hct 44.4, MCV 90.4, MCH 30.1, MCHC 33.3, RDW Std Deviation 47.2 H, RDW Coeff of Unique 14.6, Plt Count 355, MPV 9.2, Immature Gran % (Auto) 0.300, Neut % (Auto) 89.9 H, Lymph % (Auto) 1.7 L, [place] % (Auto) 7.3, Eos % (Auto) 0.4, Baso % (Auto) 0.4, Absolute Neuts (auto) 14.4 H, Absolute Lymphs (auto) 0.27 L, Nucleated RBC % 0 10/03/21 05:00: Sodium 139, Potassium 3.2 L, Chloride 99, Carbon Dioxide 26.0, Anion Gap 14, BUN 18, Creatinine 1.38 H, Estim Creat Clear Calc 31.45, Est GFR (MDRD) Af Amer 48 L, Est GFR (MDRD) Non-Af 39 L, BUN/Creatinine Ratio 13.0, Glucose 171 H, Calcium 10.6 H, Total Bilirubin 0.60, Direct Bilirubin 0.17, AST 27, ALT 32, Alkaline Phosphatase 102, Total Protein 8.5 H, Albumin 4.2, Globulin 4.3 H, Lipase 38 L 10/03/21 07:12: Lactic Acid 1.5 Micro: Microbiology 10/03/21 05:00 Nasal Secretion SARS-CoV-2 Antigen (Rapid) - Final Radiography Diagnostic Testing: Radiology Impression Abdomen/Pelvis CT 10/03/21 04:53 IMPRESSION: Findings are highly suspicious for recurrent small bowel obstruction associated with adhesions in the anterior abdomen likely associated with the hernia mesh. The zone of transition is in the right to midline abdomen. There is a decompressed appearance of the distal small bowel and colon. Right hip are the plasty Electronically Signed: Georgiana Moreira MD at 6:11 EST Tel , Service support , ADDENDUM: 10/03/21 0637 IMPRESSION: Findings are highly suspicious for recurrent small bowel obstruction associated with adhesions in the anterior abdomen likely associated with the hernia mesh. The zone of transition is in the right to midline abdomen. There is a decompressed appearance of the distal small bowel and colon. Right hip are the plasty N.B. : The above Results were Read Back by Georgiana Moreira MD to Mark Stover DO, and understanding confirmed on 10/03/2021 06:31:01 (ET). Electronically Signed: Georgiana Moreira MD at 6:11 EST Tel , Service support , KUB X-Ray 10/03/21 06:44 IMPRESSION: Esophagogastric tube extends to the stomach, advanced since prior abdomen x-ray. Electronically Signed: Randall Tobias MD (Brooks) at 8:01 EST , Service support , KUB X-Ray 10/03/21 07:47 IMPRESSION: Esophagogastric tube extends to the stomach. Electronically Signed: Randall Tobias MD (Brooks) at 8:00 EST , Service support , Physical Exam Const alert, oriented x3 and no apparent distress HEENT head/scalp atraumatic and moist oral mucous membranes Head and Scalp: normocephalic Eyes PERRL, EOMs intact bilaterally and conjunctivae normal Neck no lymphadenopathy, supple and no JVD Resp normal respiratory effort, no retractions, no use of accessory muscles and clear to auscultation bilaterally Cardio regular rate, regular rhythm, no murmurs and no JVD GI GI Narrative: NG tube present, abdomen not tender to palpation throughout quadrants. Extremity normal to inspection, full ROM and no clubbing, cyanosis or edema Skin no rashes or lesions noted, no wounds and skin turgor normal Neuro CN's II-XII intact bilaterally Psych affect normal Assessment & Plan Assessment/Plan (1) Essential hypertension: (2) Rheumatoid arthritis: (3) Small bowel obstruction: PLAN: Patient is a 76-year-old female who presents to the hospital medicine service on consult from general surgery who is treating patient for small bowel obstruction. 1) HTN Elevated, not within goal, continue Lasix and amlodipine. 2) hyperlipidemia Continue statin. 3) depression/anxiety Continue fluoxetine. 4) rheumatoid arthritis Hydroxychloroquine and methotrexate on hold. 5) history of chest heaviness Follows with Dr. Story, stress test in November 2020 was unremarkable. Hold aspirin. 6) small bowel obstruction Management per general surgery. NG tube in place and seems to be resolving patient discomfort. DVT prophylaxis - Heparin Patient seen by Laurent Swift PA-C, under the supervision of Dr. Rhodes. Time spent on patient care: 8 minutes. Documented by User: Dr. Freddy Nascimento, 10/03/21 16:49 Objective Data Lab / Micro Data Result Diagrams: 10/03/21 05:00 10/03/21 05:00 Charges/Coding Addendum Addendum: Patient was seen and examined independently of Laurent wSift, she came to the emergency room today with complaints of abdominal distention, abdominal pain, and vomiting over the last 24 hours. She also complains of having a couple of episodes of diarrhea. Patient has a history of a small bowel obstruction in the past that was treated conservatively. On examination she appeared her stated age, she does not appear to be in any distress. Vital signs as documented. Skin warm and dry and without overt rashes. Neck without JVD, thyroid appears normal, trachea is midline, neck is supple. Lungs clear, normal air movement was noted. Heart exam notable for regular rhythm, normal sounds and absence of murmurs, rubs or gallops. Abdomen unremarkable and without evidence of organomegaly, masses, or abdominal aortic enlargement, bowel sounds are present in all 4 quadrants, no rebound abdominal tenderness was noted, abdomen was soft. Extremities nonedematous, no cyanosis was noted, no clubbing was noted. Neuro: Cranial nerves II through XII are grossly intact, no focal motor deficits were noted, sensation to light touch and pinprick is intact, motor exam 5/5 throughout. Psych: Patient is alert and oriented x3, she does not appear anxious or depressed, she does not appear agitated. Impression #1 essential hypertension-patient is currently on amlodipine, this will have to be held for now as she has an NG tube in. Blood pressure will be monitored, it may be necessary to use IV blood pressure medication. #2 chronic depression-patient is on Prozac, this can be held for several days without negative effects. #3 obstructive sleep apnea-patient uses CPAP-this may be a problem at this time due to the fact she has an NG tube. #4 rheumatoid arthritis-patient will be kept off her rheumatoid drugs for now due to NG tube #5 small bowel obstruction-General surgery is addressing this aspect of care, patient has an NG tube in at this time I have reviewed Laurent Swift's progress note including his medical assessment and plan of care and endorse it with the above additions. Total clinical time spent evaluating this patient myself is 18 minutes. Visit Charges Inpatient E&M: 33426 Subs Hosp L2
--- NOTE | 2021-10-03 14:08 | NURSING ---
Patient ambulated around unit with [employer].
--- NOTE | 2021-10-03 19:28 | PCS.PANDOC ---
PANDEMIC DOCUMENTATION INITIATED: Date: 05/07/2021 Time: 1899 INITIATED 10/03 @ 0782
[2021-10-03] MEDS: Heparin Injection (Vial) 5,000 UNIT/ML VIAL 5000 UNIT SC (23:26)
[2021-10-04] VITALS (8 sets, daily range): BP systolic 117–155; BP diastolic 63–77; PULSE 74–93; RESP 16–18; TEMP 36.7–37.1; O2SAT 91–99
[2021-10-04] MEDS: 0.9% Normal Saline 1,000 ML 100 ML IV (00:35)
[2021-10-04 06:01] LABS: Absolute Lymphocyte Count 1.71 X10^3/uL (0.83-4.51); Absolute Neutrophil Count 7.4 X10^3/uL (2.0-7.7); Basophil# 0.02 X10^3/uL; Basophil% 0.2 % (0-1); Hematocrit 36.3 % (37-47); Hemoglobin 11.8 g/dL (12.0-15.0); Lymphocyte # 1.71 X10^3/ul (0.83-4.51); Mean Corp Hgb Conc 32.5 g/dL (32-36); Mean Corpuscular Hgb 30.2 pg (27.0-32.0); Mean Corpuscular Volume 92.8 fL (81-99); Mean Platelet Vol. 9.5 fl (6.2-12.0); Monocyte# 0.68 X10^3/uL; Monocyte% 6.8 % (0-10); NRBC Flagged by Analyzer 0 % (0-5); Neutrophil # 7.41 X10^3/uL (2.7-7.7); Neutrophil % 73.6 % (47-70); Platelet Count 268 K/mm3 (150-450); RBC Distribution Width CV 14.6 % (11.6-14.6); RBC Distribution Width SD 49.1 fl (35.1-43.9); Red Blood Count 3.91 M/mm3 (4.2-5.4); White Blood Count 10.1 K/mm3 (4.4-11.0)
[2021-10-04 06:50] LABS: Anion Gap 6 (5-15); BUN 20 mg/dL (7-18); BUN/Creat Ratio 22.4 RATIO (10-20); Calcium,Total 8.7 mg/dL (8.5-10.1); Chloride 108 mmol/L (98-107); Creatinine, Serum 0.89 mg/dL (0.55-1.02); EST Glomerular Filtration Rate 65 mL/min (>60); Est Glom Filt Rate - Afr Amer 79 mL/min (>60); Estimated Creatinine Clearance 48.77 ml/min; Glucose 86 mg/dL (74-106); Magnesium 2.3 mg/dL (1.6-2.6); Potassium 3.6 mmol/L (3.5-5.1); Sodium Level 143 mmol/L (136-145)
[2021-10-04] MEDS: Heparin Injection (Vial) 5,000 UNIT/ML VIAL 5000 UNIT SC (06:53)
--- NOTE | 2021-10-04 07:23 | PCM.PN.SRG ---
Subjective Subjective Patient denies any acute events overnight. She states she is feeling some rumblings this morning and therefore requested a bedside commode to be brought near her bed so she could avoid any accidents. She denies any passage of flatus. She denies any burping or nausea. She states that she has some soreness that is different from the abdominal pain with what she presented. Objective Data Objective Data Vital Signs: Vital Signs Temp Pulse Resp BP Pulse Ox 98.3 F 81 18 143/68 H 91 10/04/21 01:54 10/04/21 05:46 10/04/21 01:54 10/04/21 01:54 10/04/21 01:54 Oxygen Delivery Method Room Air Weight: 206 lb 9.17 oz Body Mass Index (BMI) 33.3 Intake & Output: Intake and Output for Last 24 Hours 10/02/21 10/03/21 10/04/21 23:59 23:59 23:59 Intake Total 2415.83 / 2425.83 30 / 30 Output Total 700 / 900 250 / 250 Balance 1715.83 / 1525.83 -220 / -220 Lab / Micro Data Result Diagrams: 10/04/21 05:34 10/04/21 05:34 Labs: Laboratory Results - last 24 hr 10/03/21 07:12: Lactic Acid 1.5 10/04/21 05:34: WBC 10.1, RBC 3.91 L, Hgb 11.8 L, Hct 36.3 L, MCV 92.8, MCH 30.2, MCHC 32.5, RDW Std Deviation 49.1 H, RDW Coeff of Unique 14.6, Plt Count 268, MPV 9.5, Immature Gran % (Auto) 0.400, Neut % (Auto) 73.6 H, Lymph % (Auto) 17.0 L, [place] % (Auto) 6.8, Eos % (Auto) 2.0, Baso % (Auto) 0.2, Absolute Neuts (auto) 7.4, Absolute Lymphs (auto) 1.71, Nucleated RBC % 0 10/04/21 05:34: Sodium 143, Potassium 3.6, Chloride 108 H, Carbon Dioxide 29.0, Anion Gap 6, BUN 20 H, Creatinine 0.89, Estim Creat Clear Calc 48.77, Est GFR (MDRD) Af Amer 79, Est GFR (MDRD) Non-Af 65, BUN/Creatinine Ratio 22.4 H, Glucose 86, Calcium 8.7, Magnesium 2.3 Micro: Microbiology 10/03/21 05:00 Nasal Secretion SARS-CoV-2 Antigen (Rapid) - Final Radiography Diagnostic Testing: Radiology Impression KUB X-Ray 10/03/21 06:44 IMPRESSION: Esophagogastric tube extends to the stomach, advanced since prior abdomen x-ray. Electronically Signed: Randall Tobias MD (Brooks) at 8:01 EST , Service support , KUB X-Ray 10/03/21 07:47 IMPRESSION: Esophagogastric tube extends to the stomach. Electronically Signed: Randall Tobias MD (Brooks) at 8:00 EST , Service support , Physical Exam Const oriented x3 and no apparent distress Resp normal respiratory effort GI GI Narrative: No abdominal distention, soft, nontender (abdominal soreness not made worse) to palpation. Nasogastric tube with moderately red/black output measuring 600 mL in the canister. 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 Neuro: As needed Dilaudid Pulm/CV: O2 as needed, hospitalist service assisting with management of patient's REY, telemetry, hospitalist service ordered home Lasix FEN/GI: Patient's hypokalemia improving, supplement with 40 M EQ's again today. Continue strict n.p.o. with nasogastric tube to low intermittent wall suction. Add Protonix 40 mg IV daily given bloody output from NG tube. Plan for small bowel series today. Heme/ID: Patient's hemoglobin decreased but related to hemodilution as well given patient appears to be resolving dehydration. Patient's leukocytosis from yesterday resolved. Endo: No acute issues Proph: SCDs with heparin subcu every 8 hours Dispo: Continue inpatient stay Charges/Coding Visit Charges Inpatient E&M: 01814 Subs Hosp L2
--- NOTE | 2021-10-04 08:45 | NURSING ---
pt transported off unit at this time via bed for small bowel study.
--- NOTE | 2021-10-04 09:00 | RAD_ITS ---
PROCEDURE: SMALL BOWEL SERIES DATE OF EXAMINATION: 10/04/2021. INDICATION: Female, 76 years old. Prior small bowel obstruction. Abdominal pain. PHYSICIAN: Musa Cortez M.D. TECHNIQUE: Radiographic and fluoroscopic images were taken of the small intestine following the ingestion of barium. COMPARISON: None. FINDINGS: A preliminary supine KUB was obtained. A nasogastric tube is seen with the tip in the body of the stomach. The gas pattern is unremarkable. There is evidence of prior ventral hernia repair. GASTROGRAFIN was introduced through the indwelling nasogastric tube. Normal visualized fundus, body, and antrum of the stomach. Normal duodenal bulb, C-loop, and proximal jejunum. Normal visualized mucosal folds of the jejunum and ileum. There are no demonstrated dilatations, strictures, or masses of the small intestine. There is no mass displacement of the loops of small intestine. There is a normal motor pattern with barium reaching the colon within approximately 15 minutes. Spot films under fluoroscopic observation demonstrated a normal terminal ileum and ileocecal valve. RAD/Small Bowel Series Only IMPRESSION: Normal small bowel series. Electronically Signed: Musa Cortez MD at 13:58 EST , Service support ,
[2021-10-04] MEDS: 0.9% Normal Saline 1,000 ML 125 ML IV (09:51)
[2021-10-04] MEDS: Potassium Chloride IVPB 10 MEQ 100 MEQ IV BOLUS ×4 (09:52→13:57)
[2021-10-04] MEDS: 0.9% Saline Lock 10 ML Syringe IV ×2 (09:55→12:46)
--- NOTE | 2021-10-04 11:05 | CASEMGMT ---
RN CM Face to Face with patient for initial transition planning/care coordination assessment. RN CM introduced self and role at [facility]. Patient lying in bed, alert and oriented. Patient willing to participate in assessment and is able to answer all questions appropriately. Care providers, pharmacy, and demographics verified. Patient wishes to discharge home, denies need for home health at this time. Patient states she has no further needs or concerns at this time. CM to follow for discharge planning needs that may arise. PCP: Elio Specialists: RA No; Porsha roadmaster; Stuart cd manufacturing supervisor Preferred Pharmacy: [facility] Insurance: [employer] Prescription Benefit: yes Living Will/HPOA: yes, Uche Ocasio LNOK: , roger Living Arrangements: Patient lives with in a bilevel home with 5 steps and railing between levels. Patient states she is independent and cares for . Transportation: self, daughter DME/HHC: Patient states she has shower chair, BSC, raised toilet, cane, hand held shower, and cpap at home. Patient denies previous HHC or SNF Disposition Plan: Patient to discharge home with family support and follow-up plans in place. Micaela VALDEZN, RN, CM
--- NOTE | 2021-10-04 11:08 | PN.HOSP_ITS ---
Documented by User: ANNITA Muhammad 10/04/21 11:19 Subjective Subjective Patient seen and examined. Patient lying in bed no distress noted. Patient to go for small bowel series x-ray this morning. Patient NG intact Objective Data Objective Data Vital Signs: Vital Signs Temp Pulse Resp BP Pulse Ox 98.8 F 93 16 155/77 H 95 10/04/21 07:56 10/04/21 07:59 10/04/21 07:56 10/04/21 07:56 10/04/21 07:56 Oxygen Delivery Method Room Air Weight: 206 lb 9.17 oz Body Mass Index (BMI) 33.3 Intake & Output: Intake and Output for Last 24 Hours 10/02/21 10/03/21 10/04/21 23:59 23:59 23:59 Intake Total 2415.83 / 2425.83 852.08 / 852.08 Output Total 700 / 900 250 / 250 Balance 1715.83 / 1525.83 602.08 / 602.08 Lab / Micro Data Result Diagrams: 10/04/21 05:34 10/04/21 05:34 Labs: Laboratory Results - last 24 hr 10/04/21 05:34: WBC 10.1, RBC 3.91 L, Hgb 11.8 L, Hct 36.3 L, MCV 92.8, MCH 30.2, MCHC 32.5, RDW Std Deviation 49.1 H, RDW Coeff of Unique 14.6, Plt Count 268, MPV 9.5, Immature Gran % (Auto) 0.400, Neut % (Auto) 73.6 H, Lymph % (Auto) 17.0 L, [place] % (Auto) 6.8, Eos % (Auto) 2.0, Baso % (Auto) 0.2, Absolute Neuts (auto) 7.4, Absolute Lymphs (auto) 1.71, Nucleated RBC % 0 10/04/21 05:34: Sodium 143, Potassium 3.6, Chloride 108 H, Carbon Dioxide 29.0, Anion Gap 6, BUN 20 H, Creatinine 0.89, Estim Creat Clear Calc 48.77, Est GFR (MDRD) Af Amer 79, Est GFR (MDRD) Non-Af 65, BUN/Creatinine Ratio 22.4 H, Glucose 86, Calcium 8.7, Magnesium 2.3 Micro: Microbiology 10/03/21 05:00 Nasal Secretion SARS-CoV-2 Antigen (Rapid) - Final Physical Exam Const alert, oriented x3 and no apparent distress HEENT head/scalp atraumatic and moist oral mucous membranes Head and Scalp: normocephalic Eyes conjunctivae normal and no scleral icterus Neck full ROM and supple General: normal visual inspection and trachea midline Resp normal respiratory effort, normal air movement and clear to auscultation bilater ally Effort and Inspection: able to speak in complete sentences and symmetric chest movement Cardio regular rate, regular rhythm, S1 normal heart sound and S2 normal heart sound GI soft to palpation Auscultation: hypoactive bowel sounds Palpation: soft and tender other (Generalized tenderness) Extremity normal to inspection, full ROM and no clubbing, cyanosis or edema Peripheral Pulses: Yes pulses 2+ throughout Skin no rashes or lesions noted, no wounds and skin turgor normal Neuro oriented x3, moves all extremities, no focal motor deficits and no sensory deficits noted Sensorium / Orientation: awake and alert Psych affect normal Assessment & Plan Assessment/Plan (1) Small bowel obstruction: (2) Essential hypertension: (3) CKD (chronic kidney disease) stage 3, GFR 30-59 ml/min: PLAN: 1. Hypertension -Vital signs stable -Continue Lasix and amlodipine 2. Hyperlipidemia -Continue statin 3. Chronic kidney disease stage IIIa -Creatinine and BUN consistent with patient baseline -BMP daily 4. Small bowel obstruction -Small bowel x-ray series ordered for this morning -Management per surgery -Maintain NG DVT prophylaxis-subcu heparin and SCDs This patient was seen by Amalia Perez, YARN WORKER-C under the supervision of Dr. Nascimento. 7 minutes spent in clinical coordination of patient's plan of care. Documented by User: Dr. Freddy Nascimento DO 10/05/21 17:47 Objective Data Lab / Micro Data Result Diagrams: 10/04/21 05:34 10/04/21 05:34 Charges/Coding Addendum Addendum: Patient was seen and examined independently of Nickie Perez, patient had several bowel movements today and her abdomen is soft. I talked with general surgery today who stated that the patient would be discharged home today. On examination she appeared in good health and spirits, she does not appear to be in any distress. Vital signs as documented. Skin warm and dry and without overt rashes. Neck without JVD, thyroid appears normal, trachea is midline, neck is supple. Lungs clear, normal air movement was noted. Heart exam notable for regular rhythm, normal sounds and absence of murmurs, rubs or gallops. Abdomen unremarkable and without evidence of organomegaly, masses, or abdominal aortic enlargement, bowel sounds are present in all 4 quadrants, no abdominal tenderness was noted. Extremities nonedematous, no cyanosis was noted, no clubbing was noted. Neuro: Cranial nerves II through XII are grossly intact, no focal motor deficits were noted, sensation to light touch and pinprick is intact, motor exam 5/5 throughout. Psych: Patient is alert and oriented x3, she does not appear anxious or depressed, she does not appear agitated. Impression #1 essential hypertension-patient will be discharged on her home medications for blood pressure #2 chronic depression-patient to resume Prozac as an outpatient #3 obstructive sleep apnea-patient uses CPAP at night #4 rheumatoid arthritis-patient will resume her rheumatoid drugs as an outpatient #5 small bowel obstruction-resolved at this time, patient appears medically stable for discharge home I have reviewed Nickie Perez's progress note including her medical assessment and plan of care and with the above additions, I endorse it. Clinical time spent on the patient today by myself: 18 minutes Visit Charges Inpatient E&M: 20189 Subs Hosp L2
[2021-10-04] MEDS: amLODIPine 5 MG Tablet PO (11:48)
[2021-10-04] MEDS: FLUoxetine 10 MG Capsule PO (11:48)
[2021-10-04] MEDS: Folic Acid 1 MG Tablet 2 MG PO (11:48)
[2021-10-04] MEDS: Furosemide 40 MG Tablet PO (11:48)
--- NOTE | 2021-10-04 15:59 | PCM.DC ---
Discharge Instructions Diet Discharge Diet: Soft diet (Low fiber) Activity Discharge Activity: No Restrictions Dressing / Incision Call your doctor if you observe: Inability to have a bowel movement and - (Abdominal distention, stoppage of flatus, nausea) Follow Up Care Please Follow Up With: Jesus Ballard MD When: PCP within 2 weeks of hospital discharge Test Results: Test results from this visit will be discussed in further detail at your follow-up appointment, if applicable. Discharge Plan Admission Admit Date/Time: 10/03/21 07:53 Primary Reason for Your Visit: Small bowel obstruction Attending Provider: Danny Lord Primary Care Provider: Jesus Ballard Consulting Providers: Freddy Nascimento Instructions Patient Instructions: Low-Fiber Diet Discharge Orders/Prescriptions Prescriptions: Continued amlodipine 5 mg tablet 5 mg PO DAILY RF: 0 acetaminophen 500 mg tablet 500 mg PO Q6H PRNRF: 0 potassium chloride 20 mEq tablet,ER particles/crystals 20 meq PO BIDCM Qty: 180 RF: 3 furosemide 40 mg tablet 40 mg PO DAILY Qty: 90 RF: 3 folic acid 1 MG tablet 2 tab PO DAILY RF: 0 fluoxetine 10 MG capsule 10 mg PO DAILY RF: 0 methotrexate sodium 2.5 mg tablet 15 mg PO QWEEK RF: 0 cholecalciferol (vitamin D3) 2,000 UNIT capsule 1,000 unit PO DAILY RF: 0 aspirin 81 MG tablet,delayed release (DR/EC) 81 mg PO DAILY RF: 0 hydroxychloroquine 200 mg tablet 200 mg PO BID RF: 0 ascorbic acid (vitamin C) 500 MG capsule 500 mg PO DAILY RF: 0 atorvastatin 10 MG tablet 10 mg PO DAILY RF: 0 Referrals / Follow Up: Jesus Ballard MD [Primary Care Provider] -
--- NOTE | 2021-10-04 16:03 | PCM.DC.SUM ---
Providers Date of Admission: 10/03/21 Primary Care Physician: Dr. Jesus Ballard MD Consultations 10/03/21 11:57 Consult: Hospitalist Routine Consulting Provider: Freddy Nascimento Reason for Consult: management of comorbidities EMERGENT Consult: No MD Notified: Yes Date Notified: 10/03/21 Time Notified: 11:57 Method of Notification: Verbal Reason For Visit: SMALL BOWEL OBSTRUCTION Diagnosis Discharge Diagnosis (1) Small bowel obstruction: Status: Inactive Code(s): K56.609 - Unspecified intestinal obstruction, unspecified as to partial versus complete obstruction (2) Essential hypertension: Status: Chronic Code(s): I10 - Essential (primary) hypertension (3) CKD (chronic kidney disease) stage 3, GFR 30-59 ml/min: Status: Chronic Code(s): N18.30 - Chronic kidney disease, stage 3 unspecified Medications at Discharge Home Medications folic acid 2 tab PO DAILY 10/20/15 fluoxetine 10 mg PO DAILY 10/21/15 cholecalciferol (vitamin D3) 1,000 unit PO DAILY 12/25/17 aspirin 81 mg PO DAILY 12/24/19 ascorbic acid (vitamin C) 500 mg PO DAILY 03/12/20 atorvastatin 10 mg PO DAILY 11/28/20 acetaminophen 500 mg tablet 500 mg PO Q6H PRN 01/11/21 amlodipine 5 mg tablet 5 mg PO DAILY 01/11/21 methotrexate sodium 2.5 mg tablet 15 mg PO QWEEK tablet 01/11/21 hydroxychloroquine 200 mg tablet 200 mg PO BID tab 04/13/21 furosemide 40 mg tablet 40 mg PO DAILY #90 tab 07/05/21 potassium chloride 20 mEq tablet,extended release(part/cryst) 20 meq PO BIDCM #180 tab 07/05/21 Hospital Course Operations None Procedures None Summary of Care Provided Hospital Course: Patient was admitted to the hospital on 10/03/2021 after a diagnosis was made of a small bowel obstruction likely related to postoperative adhesions from a hernia surgery performed in the mid . A nasogastric tube was placed in the emergency department and a KUB was obtained to confirm this placement. Patient underwent enteric decompression for the first 24 hours of her hospital stay while IV fluids were administered to address some presentation dehydration and hypokalemia. The hospitalist service was consulted to provide input on the patient's numerous chronic comorbidities and slight acute kidney injury. Hospital day 2, the patient was still without return of bowel function but taken to radiology for a small bowel series. Initial images showed a nonspecific small bowel pattern and air within the colon. Thereafter, contrast was administered and followed with serial imaging. Contrast showed free flow into the right colon without any evidence of obstruction. Patient began having bowel movements shortly after this exam. Therefore, the patient's nasogastric tube was discontinued and a diet was initiated. She tolerated this advancement to clears without issue and her home medications were resumed. With these improvements, patient was then advanced to a soft diet, and again, this transition was uneventful. Patient was reassessed in the afternoon and stated that she felt well. She denied any nausea or vomiting and confirmed ongoing passage of flatus. She also denied any abdominal discomfort and expressed an interest for discharge to home. Given her clinical improvements, this request was granted. However, just prior to discharge I advised her to remain on a soft, low fiber diet for 1 week post?hospitalization. I described this is meant to provide a mechanically-easy digestive process for potentially residual inflamed small bowel. Patient expressed understanding and a willingness to comply with these requests. I informed the patient that no formal clinic follow-up is required on my account, but did advise her to follow-up with her primary care physician shortly after hospital discharge so they are aware of these proceedings. Physical Exam GI GI Narrative: Nondistended, soft, nontender to palpation x4 quadrants Weight / BMI Weight Weight: 206 lb 9.17 oz Body Mass Index (BMI) 33.3 ABG / Lab / Microbiology Data Result Diagrams: 10/04/21 05:34 10/04/21 05:34 Laboratory: Laboratory Results - last 24 hr 10/04/21 05:34: WBC 10.1, RBC 3.91 L, Hgb 11.8 L, Hct 36.3 L, MCV 92.8, MCH 30.2, MCHC 32.5, RDW Std Deviation 49.1 H, RDW Coeff of Unique 14.6, Plt Count 268, MPV 9.5, Immature Gran % (Auto) 0.400, Neut % (Auto) 73.6 H, Lymph % (Auto) 17.0 L, [place] % (Auto) 6.8, Eos % (Auto) 2.0, Baso % (Auto) 0.2, Absolute Neuts (auto) 7.4, Absolute Lymphs (auto) 1.71, Nucleated RBC % 0 10/04/21 05:34: Sodium 143, Potassium 3.6, Chloride 108 H, Carbon Dioxide 29.0, Anion Gap 6, BUN 20 H, Creatinine 0.89, Estim Creat Clear Calc 48.77, Est GFR (MDRD) Af Amer 79, Est GFR (MDRD) Non-Af 65, BUN/Creatinine Ratio 22.4 H, Glucose 86, Calcium 8.7, Magnesium 2.3 Microbiology: Microbiology 10/03/21 05:00 Nasal Secretion SARS-CoV-2 Antigen (Rapid) - Final Radiography Diagnostic Testing: Radiology Impression Small Bowel X-Ray 10/04/21 09:00 IMPRESSION: Normal small bowel series. Electronically Signed: Musa Cortez MD at 13:58 EST , Service support , D/C Instructions Discharge Diet: Soft diet (Low fiber) Call your doctor if you observe: Inability to have a bowel movement and - (Abdominal distention, stoppage of flatus, nausea) Please Follow Up With: Jesus Ballard MD When: PCP within 2 weeks of hospital discharge Meaningful Use Info Meaningful Use Diagnoses (Choose all that apply): None applicable Discharge Plan Admission Admit Date/Time: 10/03/21 07:53 Primary Reason for Your Visit: Small bowel obstruction Attending Provider: Danny Lord Primary Care Provider: Jesus Ballard Consulting Providers: Freddy Nascimento Instructions Patient Instructions: Low-Fiber Diet Discharge Orders/Prescriptions Prescriptions: Continued amlodipine 5 mg tablet 5 mg PO DAILY RF: 0 acetaminophen 500 mg tablet 500 mg PO Q6H PRNRF: 0 potassium chloride 20 mEq tablet,ER particles/crystals 20 meq PO BIDCM Qty: 180 RF: 3 furosemide 40 mg tablet 40 mg PO DAILY Qty: 90 RF: 3 folic acid 1 MG tablet 2 tab PO DAILY RF: 0 fluoxetine 10 MG capsule 10 mg PO DAILY RF: 0 methotrexate sodium 2.5 mg tablet 15 mg PO QWEEK RF: 0 cholecalciferol (vitamin D3) 2,000 UNIT capsule 1,000 unit PO DAILY RF: 0 aspirin 81 MG tablet,delayed release (DR/EC) 81 mg PO DAILY RF: 0 hydroxychloroquine 200 mg tablet 200 mg PO BID RF: 0 ascorbic acid (vitamin C) 500 MG capsule 500 mg PO DAILY RF: 0 atorvastatin 10 MG tablet 10 mg PO DAILY RF: 0 Referrals / Follow Up: Jesus Ballard MD [Primary Care Provider] -
== END 2021-10-04 17:34 | disposition home or self-care (01) | DRG 389 ==
LOC: ED 06:58 → MS2 07:57
PROVIDERS: Admitting Provider Surgery; Emergency Provider Emergency Medicine; PCP Internal Medicine; Visit Provider Surgery
DX: K56.609 Unspecified intestinal obstruction, unspecified as to partial versus complete obstruction (principal); N17.9 Acute kidney failure, unspecified; M06.9 Rheumatoid arthritis, unspecified; N18.31 Chronic kidney disease, stage 3a; M35.3 Polymyalgia rheumatica; I12.9 Hypertensive chronic kidney disease with stage 1 through stage 4 chronic kidney disease, or unspecified chronic kidney disease; E86.0 Dehydration; E78.5 Hyperlipidemia, unspecified; E87.6 Hypokalemia; G47.33 Obstructive sleep apnea (adult) (pediatric); F41.9 Anxiety disorder, unspecified; Z87.891 Personal history of nicotine dependence; Z79.82 Long term (current) use of aspirin; F32.A Depression, unspecified
CPT/HCPCS: 36415; 74018; 74177; 74250; 80048; 80076; 83605; 83690; 83735; 85025; 87426; 94640; 99285; J7030; Q9967; A4216; J2405

== ENCOUNTER 2021-11-12 08:01 | Outpatient (CLI) | payer MEDICARE, BC, SELFPAY ==
[2021-11-12 09:59] LABS: Absolute Lymphocyte Count 1.63 X10^3/uL (0.83-4.51); Absolute Neutrophil Count 4.1 X10^3/uL (2.0-7.7); Basophil# 0.04 X10^3/uL; Basophil% 0.6 % (0-1); Eosinophil# 0.39 X10^3/uL; Eosinophils% 5.8 % (0-5); Hematocrit 37.8 % (37-47); Hemoglobin 12.3 g/dL (12.0-15.0); Lymphocyte # 1.63 X10^3/ul (0.83-4.51); Lymphocyte % 24.4 % (19-41); Mean Corp Hgb Conc 32.5 g/dL (32-36); Mean Corpuscular Hgb 30.2 pg (27.0-32.0); Mean Corpuscular Volume 92.9 fL (81-99); Mean Platelet Vol. 9.9 fl (6.2-12.0); Monocyte# 0.55 X10^3/uL; Monocyte% 8.2 % (0-10); NRBC Flagged by Analyzer 0 % (0-5); Neutrophil # 4.06 X10^3/uL (2.7-7.7); Neutrophil % 60.7 % (47-70); Platelet Count 273 K/mm3 (150-450); RBC Distribution Width CV 14.6 % (11.6-14.6); RBC Distribution Width SD 49.5 fl (35.1-43.9); Red Blood Count 4.07 M/mm3 (4.2-5.4); White Blood Count 6.7 K/mm3 (4.4-11.0)
[2021-11-12 10:36] LABS: ALB/GLOB Ratio 0.9 RATIO (0.9-2.4); AST(SGOT) 24 U/L (15-37); Alanine Aminotransfer ALT/SGPT 25 U/L (13-56); Albumin, Serum 3.5 g/dL (3.2-5.0); Alkaline Phosphatase 93 U/L (45-117); Anion Gap 4 (5-15); BUN 20 mg/dL (7-18); BUN/Creat Ratio 19.6 RATIO (10-20); Calcium,Total 9.2 mg/dL (8.5-10.1); Chloride 103 mmol/L (98-107); Creatinine, Serum 1.02 mg/dL (0.55-1.02); EST Glomerular Filtration Rate 56 mL/min (>60); Est Glom Filt Rate - Afr Amer 67 mL/min (>60); Globulin 3.7 g/dL (2.2-4.2); Glucose 102 mg/dL (74-106); Potassium 3.8 mmol/L (3.5-5.1); Protein, Total 7.2 g/dL (6.4-8.2); Sodium Level 138 mmol/L (136-145)
== END 2021-11-12 23:59 | disposition home or self-care (01) ==
LOC: MTLAB 08:04
PROVIDERS: PCP Internal Medicine; Referring Provider Internal Medicine Rheumatology; Visit Provider Internal Medicine Rheumatology
DX: M06.00 Rheumatoid arthritis without rheumatoid factor, unspecified site (principal); I50.9 Heart failure, unspecified; E11.9 Type 2 diabetes mellitus without complications; M65.352 Trigger finger, left little finger; M18.0 Bilateral primary osteoarthritis of first carpometacarpal joints; M17.0 Bilateral primary osteoarthritis of knee; K21.9 Gastro-esophageal reflux disease without esophagitis; M47.892 Other spondylosis, cervical region; G47.33 Obstructive sleep apnea (adult) (pediatric); M47.897 Other spondylosis, lumbosacral region; Z79.899 Other long term (current) drug therapy
CPT/HCPCS: 36415; 80053; 85025

== ENCOUNTER → 2022-02-07 | Outpatient (CLI) | payer MEDICARE, BC, SELFPAY ==
[2022-02-07 15:22] LABS: Absolute Lymphocyte Count 1.19 X10^3/uL (0.83-4.51); Absolute Neutrophil Count 7.8 X10^3/uL (2.0-7.7); Basophil# 0.04 X10^3/uL; Basophil% 0.4 % (0-1); Eosinophil# 0.22 X10^3/uL; Eosinophils% 2.3 % (0-5); Hematocrit 38.6 % (37-47); Hemoglobin 12.6 g/dL (12.0-15.0); Lymphocyte # 1.19 X10^3/ul (0.83-4.51); Lymphocyte % 12.3 % (19-41); Mean Corp Hgb Conc 32.6 g/dL (32-36); Mean Corpuscular Hgb 30.4 pg (27.0-32.0); Mean Corpuscular Volume 93.2 fL (81-99); Mean Platelet Vol. 9.8 fl (6.2-12.0); Monocyte# 0.44 X10^3/uL; Monocyte% 4.5 % (0-10); NRBC Flagged by Analyzer 0 % (0-5); Neutrophil # 7.78 X10^3/uL (2.7-7.7); Neutrophil % 80.1 % (47-70); Platelet Count 309 K/mm3 (150-450); RBC Distribution Width CV 14.8 % (11.6-14.6); RBC Distribution Width SD 50.4 fl (35.1-43.9); Red Blood Count 4.14 M/mm3 (4.2-5.4); White Blood Count 9.7 K/mm3 (4.4-11.0)
[2022-02-07 16:25] LABS: AST(SGOT) 23 U/L (15-37); Alanine Aminotransfer ALT/SGPT 24 U/L (13-56); Albumin, Serum 3.7 g/dL (3.2-5.0); Alkaline Phosphatase 97 U/L (45-117); Anion Gap 7 (5-15); BUN 26 mg/dL (7-18); BUN/Creat Ratio 25.5 RATIO (10-20); Calcium,Total 9.5 mg/dL (8.5-10.1); Chloride 104 mmol/L (98-107); Creatinine, Serum 1.02 mg/dL (0.55-1.02); EST Glomerular Filtration Rate 56 mL/min (>60); Est Glom Filt Rate - Afr Amer 67 mL/min (>60); Globulin 3.7 g/dL (2.2-4.2); Glucose 90 mg/dL (74-106); Potassium 3.8 mmol/L (3.5-5.1); Protein, Total 7.4 g/dL (6.4-8.2); Sodium Level 139 mmol/L (136-145)
== END | disposition home or self-care (01) ==
PROVIDERS: PCP Internal Medicine; Referring Provider Internal Medicine Rheumatology; Visit Provider Internal Medicine Rheumatology
DX: M06.00 Rheumatoid arthritis without rheumatoid factor, unspecified site (principal); I50.9 Heart failure, unspecified; E11.9 Type 2 diabetes mellitus without complications; M65.352 Trigger finger, left little finger; M18.0 Bilateral primary osteoarthritis of first carpometacarpal joints; M17.0 Bilateral primary osteoarthritis of knee; K21.9 Gastro-esophageal reflux disease without esophagitis; M47.892 Other spondylosis, cervical region; G47.33 Obstructive sleep apnea (adult) (pediatric); M47.897 Other spondylosis, lumbosacral region
CPT/HCPCS: 36415; 80053; 85025

== ENCOUNTER 2022-05-05 02:59 | Inpatient (IN) | payer MEDICARE, BC, SELFPAY ==
[2022-05-05] VITALS (7 sets, daily range): BP systolic 124–151; BP diastolic 60–69; PULSE 66–94; RESP 18–20; TEMP 35.6–37.2; O2SAT 93–99; BMI 34.0; BMI 29.2
--- NOTE | 2022-05-05 03:12 | CT_ITS ---
We are attempting to reach an attending provider to discuss findings. An addendum with communication details will be sent when the communication is complete. INDICATION: Abdominal pain with vomiting, history of colorectal cancer and multiple small bowel obstructions. EXAMINATION: CT Abdomen And Pelvis W/ Contrast Injection TECHNIQUE: Helically acquired images were obtained of the abdomen and pelvis following IV contrast. 2-D reconstructions reviewed. A radiation dose optimization technique was used for this scan. IV Contrast dosage and agent: 100 mL [id number] Oral contrast: None. COMPARISON: CT abdomen and pelvis from 10/03/2021 FINDINGS: LOWER CHEST: Minimal dependent atelectasis. Small hiatal hernia again noted. Heart size within normal limits. LIVER: Homogeneous. No concerning lesion. GALLBLADDER AND BILIARY TREE: No calcified gallstones identified. No gallbladder wall edema demonstrated. No significant biliary ductal dilation. PANCREAS: No discrete mass or peripancreatic edema. SPLEEN: Normal size without focal cystic or solid mass. ADRENAL GLANDS: Unremarkable. KIDNEYS AND URETERS: Normal renal size and position. No hydronephrosis. No concerning lesion. PERITONEUM: Trace mesenteric ascites and mesenteric edema adjacent to dilated loops of small bowel. No free air or organized abscess collection. RETROPERITONEUM: No retroperitoneal mass or pathologic fluid collection. BOWEL: There are several dilated loops of small bowel demonstrating air-fluid levels within mid to lower abdomen. There are some decompressed and mildly thickened loops of small bowel within anterior lower abdominal cavity. There is abrupt transition from dilated to decompressed small bowel within midline anterior abdomen just above level of umbilicus (series 5 axial images 60-65). Small amount of fluid within distal small bowel loops. No bowel pneumatosis demonstrated. Large bowel is normal caliber. Rectosigmoid anastomotic sutures noted. Normal appendix within right lower quadrant. LYMPH NODES: No enlarged mesenteric or retroperitoneal lymph nodes. VESSELS: Moderate atherosclerosis with no abdominal aortic aneurysm. URINARY BLADDER: Unremarkable as visualized. REPRODUCTIVE ORGANS: No pelvic masses. ABDOMINAL WALL: Ventral abdominal hernia repair mesh in place. Lower abdominal wall scarring. BONES: Moderate degenerative disc space narrowing at L5-S1. Status post right hip arthroplasty. CT/Abdomen/Pelvis W IV Cont ONLY IMPRESSION: Recurrent mechanical small bowel obstruction within the midline anterior abdominal cavity, possibly secondary to adhesions. There is associated mesenteric edema and trace mesenteric ascites. Location of bowel obstruction is similar to previous exam. Electronically Signed: Freddy Henson MD at 5:11 EDT ,
--- NOTE | 2022-05-05 03:15 | EKG12_ITS ---
Test Reason : DYSRHYTHMIA Blood Pressure : / mmHG Vent. Rate : 065 BPM Atrial Rate : 065 BPM P-R Int : 184 ms QRS Dur : 120 ms QT Int : 480 ms P-R-T Axes : 060 -22 037 degrees QTc Int : 499 ms Normal sinus rhythm Incomplete left bundle branch block Borderline ECG Confirmed by MUSHTAQ DOMINGUEZ, JACQUELINE ([id number]), electronic news gathering editor NORA POLK ([id number]) on 05/06/2022 1:49:45 PM Referred By: PL Confirmed By:JACQUELINE LANDIN MD
--- NOTE | 2022-05-05 03:16 | EX.ED.DYSGE1 ---
HPI History of Present Illness Chief Complaint: Abd Pain Informant: patient Narrative Narrative: Patient presents with diffuse abdominal pain. This started a little bit after eating supper that was a homemade soup. She did use some tomato sauce that had been in her refrigerator for a long time. She states the first bowl was a little bit bitey. She wondered if it was still good but the other bowel seem to taste fine. She then developed diffuse abdominal cramping. She developed nausea with dry heaves but no vomiting. She also had some soft bowel movements but no blood. She has had bowel obstructions before and this seems similar. She has always been able to resolve the bowel obstructions with bowel rest and not needing surgery for these. She has had prior surgery of several C-sections as well as rectal cancer. She never had an ostomy. She has no fevers or chills. No chest pain. Nothing really makes her symptoms better or worse. Of note, patient also has a home COVID test that was positive on Friday. She states she had a mild headache back then but has none of those symptoms now. She has never had myalgias fevers chills chest pain trouble breathing or typical symptoms of COVID. She was exposed to a sister who felt ill and then tested positive the same day the patient did. The patient had been around the sister a fair amount prior to this. [facility] Medical History Abdominal pain Abnormal mammogram of left breast Bowel obstruction Carpal tunnel syndrome CKD (chronic kidney disease) stage 3, GFR 30-59 ml/min Essential hypertension FH: total knee replacement GERD (gastroesophageal reflux disease) History of colon cancer Mixed hyperlipidemia REY on CPAP Polymyalgia rheumatica Rheumatoid arthritis Wrist fracture Home Medications folic acid 1 mg tablet 2 tab PO DAILY SUPPLEMENT 10/20/15 [History Last Taken 11/28/20 09:30 2 tab] fluoxetine 10 mg capsule 10 mg PO DAILY DEPRESSION 10/21/15 [History Last Taken 11/28/20 09:30 10 mg] cholecalciferol (vitamin D3) 50 mcg (2,000 unit) capsule 1,000 unit PO DAILY SUPPLEMENT 12/25/17 [History Last Taken 11/28/20 09:30 1000 u] aspirin 81 mg tablet,delayed release 81 mg PO DAILY heart health 12/24/19 [History Last Taken 11/28/20 09:30 81 mg] ascorbic acid (vitamin C) 500 mg capsule 500 mg PO DAILY Supplement 03/12/20 [History Last Taken 11/28/20 09:30 500 mg] atorvastatin 10 mg tablet 10 mg PO QHS cholesterol 11/28/20 [History Last Taken 11/28/20 09:30 10 mg] acetaminophen 500 mg tablet 500 mg PO Q6H PRN Pain 01/11/21 [History Last Taken Unknown] amlodipine 5 mg tablet 5 mg PO DAILY 01/11/21 [History Last Taken Unknown] methotrexate sodium 2.5 mg tablet 15 mg PO DA SILVA RHEUMATOID 01/11/21 [History Last Taken Unknown] hydroxychloroquine 200 mg tablet 200 mg PO BID inflammation 04/13/21 [History Last Taken Unknown] furosemide 40 mg tablet 40 mg PO DAILY #90 tabs 07/05/21 [Rx Last Taken Unknown] potassium chloride 20 mEq tablet,extended release(part/cryst) 20 meq PO BIDCM #180 tabs 07/05/21 [Rx Last Taken Unknown] Allergy/AdvReac Type Severity Reaction Status Date / Time Penicillins [PCN] Allergy Rash Verified 09/12/21 14:06 Sulfa (Sulfonamide Allergy Rash Verified 09/12/21 14:06 Antibiotics) lisinopril AdvReac Unknown unknown Verified 09/12/21 14:06 azithromycin [From Zithromax] AdvReac Nausea/Vom/ Verified 09/12/21 14:06 Diarrhea codeine AdvReac Other Verified 09/12/21 14:06 hydrochlorothiazide AdvReac Rash Verified 09/12/21 14:06 nitroglycerin AdvReac Other Verified 09/12/21 14:06 [From Nitroglyn] Family History Sister Diabetes Asthma Hypertension Leukemia Brother Heart disease Hypertension Diabetes Father Myocardial infarction CAD (coronary artery disease) Mother Cancer Liver Hypertension Acute arthritis Surgical History History of section History of colectomy (~2001) History of colonoscopy (~2015) History of hernia repair Social History Smoking Status: Former smoker alcohol intake: never substance use type: does not use caffeine: Yes Type: coffee Number of servings: 2 ROS ROS ED Constitutional Constitutional ED: Denies chills or fever(s) ENT ENT ED: Denies rhinorrhea or sore throat Cardiovascular Cardiovascular: Denies chest pain Respiratory/Chest Respiratory/Chest: Denies cough or dyspnea Gastrointestinal Gastrointestinal: Reports abdominal pain, diarrhea and nausea; Denies constipation, melena or vomiting Genitourinary Genitourinary ED: Denies dysuria, hematuria or urinary frequency Musculoskeletal Musculoskeletal: Denies arthralgias, back pain, myalgias or neck pain Integumentary Denies rash Neurologic Neurologic: Denies headache(s) Endocrine Endocrinology: Denies polydipsia or polyuria Hematologic/Lymphatic Hematologic/Lymphatic: Denies easy bleeding or easy bruising Allergic/Immunologic Allergic/Immunologic ED: Denies urticaria EXAM Physical Exam Const Vital Signs: 05/05/22 03:01 05/05/22 05:00 Temperature 96.0 F L Temperature Source Temporal Pulse Rate 66 69 Respiratory Rate 20 H 18 Blood Pressure 142/64 H 142/63 H Blood Pressure Mean 90 89 Pulse Ox 99 96 Oxygen Delivery Method Room Air Room Air Positive well nourished, well developed and obese General Appearance ED: well developed and NAD Nutritional Appearance: obese HEENT Reports dry mucous membranes HEENT Narrative: Minimally dry mucous membrane Mouth ED: Yes dry mucous membranes Mouth: dry mucous membranes Eyes General Eye ED: Negative for scleral icterus Neck supple Chest Wall inspection of chest normal Resp normal respiratory effort and clear to auscultation bilaterally Auscultation: Negative for rales, rhonchi or wheezes Cardio regular rate and regular rhythm GI normal to inspection, nondistended, normoactive bowel sounds GI Narrative: Bowel sounds are slightly quiet. But they are still present. It is hard to ascertain if her abdomen is acutely distended although she feels as though her abdomen is somewhat bloated. There is very mild nonfocal tenderness without rebound or guarding. Back/Spine no CVA tenderness Extremity General Extremety ED: Negative for tenderness Neuro oriented x3 Psych mental status grossly normal Skin no rashes or lesions noted MDM MDM MDM Narrative Medical decision making narrative: Patient CBC shows no acute process. Electrolytes showed mild renal dysfunction which is known. Glucose is little elevated at 170. LFTs are normal. Urine shows no marked abnormalities. CT scan of the abdomen does show early small bowel obstruction with relatively defined transition point with slight inflammatory fluid changes. This is likely adhesion. We do see mesh in the abdomen. Patient's not exactly sure when this was placed. I discussed case with surgeon on-call Dr. Betts. Plan is NG tube and admission to medicine and I discussed the case with hospitalist. Lab Data Attestation: I reviewed the patient's lab results. Labs: Laboratory Results - last 24 hr 05/05/22 05/05/22 05/05/22 03:26 03:26 04:55 WBC 9.6 RBC 4.33 Hgb 13.2 Hct 40.0 MCV 92.4 MCH 30.5 MCHC 33.0 RDW Std Deviation 48.8 H RDW Coeff of Unique 14.6 Plt Count 265 MPV 9.2 Immature Gran % (Auto) 0.400 Neut % (Auto) 74.4 H Lymph % (Auto) 16.8 L [place] % (Auto) 5.5 Eos % (Auto) 2.7 Baso % (Auto) 0.2 Absolute Neuts (auto) 7.1 Absolute Lymphs (auto) 1.60 Nucleated RBC % 0 Sodium 137 Potassium 3.8 Chloride 102 Carbon Dioxide 28.0 Anion Gap 7 BUN 19 H Creatinine 1.14 H Estim Creat Clear Calc 37.46 Est GFR (MDRD) Af Amer 59 L Est GFR (MDRD) Non-Af 49 L BUN/Creatinine Ratio 16.7 Glucose 170 H Calcium 9.2 Total Bilirubin 0.70 AST 24 ALT 26 Alkaline Phosphatase 82 Total Protein 7.1 Albumin 3.5 Globulin 3.6 Albumin/Globulin Ratio 1.0 Lipase 68 L Urine Color Yellow Urine Clarity Clear Urine pH 7.0 Ur Specific [place] 1.010 Urine Protein 15 H Urine Glucose (UA) Normal Urine Ketones Negative Urine Occult Blood 10 H Urine Nitrite Negative Urine Bilirubin Negative Urine Urobilinogen Normal Ur Leukocyte Esterase 25 H Radiography Diagnostic Testing: Clinical Impression(s) from Imaging Studies Abdomen/Pelvis CT 05/05/22 03:12 IMPRESSION: Recurrent mechanical small bowel obstruction within the midline anterior abdominal cavity, possibly secondary to adhesions. There is associated mesenteric edema and trace mesenteric ascites. Location of bowel obstruction is similar to previous exam. Electronically Signed: Freddy Henson MD at 5:11 EDT , EKG Initial EKG: Comments: EKG done for abdominal pain and elderly female shows normal sinus rhythm with overall rate of 65. This is a incomplete left bundle branch block. No ectopy.. MT interval is normal. QRS duration and QTc is a bit long. It is overall similar to 01/11/2021. Discharge Plan Triage Chief Complaint: Abd Pain ED Provider: Vijay Haney Dx/Rx/DC Orders Clinical Impression: SBO (small bowel obstruction), Nausea Primary Care Provider: Jesus Ballard Disposition Disposition: Acute Care Hospital [facility]
[2022-05-05 03:30] LABS: Absolute Neutrophil Count 7.1 X10^3/uL (2.0-7.7); Basophil# 0.02 X10^3/uL; Basophil% 0.2 % (0-1); Eosinophil# 0.26 X10^3/uL; Eosinophils% 2.7 % (0-5); Hemoglobin 13.2 g/dL (12.0-15.0); Lymphocyte % 16.8 % (19-41); Mean Corpuscular Hgb 30.5 pg (27.0-32.0); Mean Corpuscular Volume 92.4 fL (81-99); Mean Platelet Vol. 9.2 fl (6.2-12.0); Monocyte# 0.53 X10^3/uL; Monocyte% 5.5 % (0-10); NRBC Flagged by Analyzer 0 % (0-5); Neutrophil % 74.4 % (47-70); Platelet Count 265 K/mm3 (150-450); RBC Distribution Width CV 14.6 % (11.6-14.6); RBC Distribution Width SD 48.8 fl (35.1-43.9); Red Blood Count 4.33 M/mm3 (4.2-5.4); White Blood Count 9.6 K/mm3 (4.4-11.0)
[2022-05-05] MEDS: Morphine 4 MG/ML Syringe IV ×2 (03:31→05:19)
[2022-05-05] MEDS: Ondansetron 4 MG/2 ML Vial IV ×3 (03:31→08:36)
[2022-05-05 03:50] LABS: AST(SGOT) 24 U/L (15-37); Alanine Aminotransfer ALT/SGPT 26 U/L (13-56); Albumin, Serum 3.5 g/dL (3.2-5.0); Alkaline Phosphatase 82 U/L (45-117); Anion Gap 7 (5-15); BUN 19 mg/dL (7-18); BUN/Creat Ratio 16.7 RATIO (10-20); Calcium,Total 9.2 mg/dL (8.5-10.1); Chloride 102 mmol/L (98-107); Creatinine, Serum 1.14 mg/dL (0.55-1.02); EST Glomerular Filtration Rate 49 mL/min (>60); Est Glom Filt Rate - Afr Amer 59 mL/min (>60); Estimated Creatinine Clearance 37.46 ml/min; Globulin 3.6 g/dL (2.2-4.2); Glucose 170 mg/dL (74-106); Lipase 68 U/L (73-393); Potassium 3.8 mmol/L (3.5-5.1); Protein, Total 7.1 g/dL (6.4-8.2); Sodium Level 137 mmol/L (136-145)
[2022-05-05 05:01] LABS: Mucous, Urine 0 SEEN /hpf (<or=2+); Red Blood Cells-Urine 0 SEEN /hpf (0-5)
[2022-05-05 05:03] LABS: Color, Urine Yellow (Yellow); Glucose, Dipstick Normal (Normal); Ketone-Dipstick Negative (Negative); Leukocyte Esterase-Dipstick 25 /ul (Negative); Nitrite-Dipstick Negative (Negative); Occult Blood-Urine 10 /ul (Negative); Protein-Dipstick 15 mg/dl (Negative); Urine Bilirubin Dipstick Negative (Negative); Urine Clarity Clear (Clear); Urine Urobilinogen Normal (Normal)
[2022-05-05 05:33] LABS: Bacteria 2+ /hpf (None Seen); Squamous Epithelial Cells - UA 0-5 SEEN /hpf (5-10); White Blood Cells 0-5 SEEN /hpf (0-5)
[2022-05-05] MEDS: Oxymetazoline 0.05% 1 SPRAY SPRAY.BTL 2 SPRAY NASAL (05:49)
--- NOTE | 2022-05-05 06:07 | RAD_ITS ---
INDICATION: NG Tube placement -- KUB with both diaphragms for NG/OG Verification EXAMINATION/TECHNIQUE: X-RAY - portable AP view of upper abdomen COMPARISON: CT abdomen and pelvis from 2 hours prior FINDINGS: Enteric tube tip adequately positioned at mid gastric lumen. Dilated loops of small bowel again noted. Bilateral renal excretion of contrast. Ventral hernia repair mesh clips noted. Unremarkable lower lungs. Heart normal size. Atherosclerotic calcifications along the aorta. Mild skeletal degenerative changes. RAD/Abdomen Single View (Portable) IMPRESSION: Obstructive bowel gas pattern with adequate position of enteric tube. Electronically Signed: Freddy Henson MD at 7:22 EDT ,
--- NOTE | 2022-05-05 06:17 | HP.PCM.HOS_ITS ---
[facility] - General General Date of Admission: 05/05/22 Date of Service: 05/05/22 Chief Complaint: Abdominal pain started last night 05/04, nausea. Had bowel movement yesterday night HPI Narrative FABIO PORTILLO, is a 77 F with history of recurrent bowel obstruction in the past, last 1 in September 2021 came to ED with sudden onset of abdominal pain after she finished her supper. Her supper had beef soup. Abdominal pain is started in right lower quadrant, 4-5/10 intensity and then got worse 10/10 intensity. It is constant in nature without relief. She had 1 small bowel movement after abdominal pain which is soft solid without any blood. No fever or chills. She has nausea but no vomiting. She threw up once in ED during insertion of NG t ube. She states he also tested positive of COVID rapid antigen 5 days ago on past Friday. She had history of colon cancer which required colectomy and anastomosis in 2001. She also history of and hernia repair in the past. In ED, schedule CT abdomen with IV contrast which showed small bowel obstruction within the midline mostly due to adhesion. There are several dilated small bowel loops with air-fluid level with abrupt transition in the midline just above umbilicus. Associated mesenteric edema and trace mesenteric ascites. ED physician discussed with surgeon, Dr. Betts and the patient is admitted. NG tube inserted. [facility] Medical History Abdominal pain Abnormal mammogram of left breast Bowel obstruction Carpal tunnel syndrome CKD (chronic kidney disease) stage 3, GFR 30-59 ml/min Essential hypertension FH: total knee replacement GERD (gastroesophageal reflux disease) History of colon cancer Mixed hyperlipidemia REY on CPAP Polymyalgia rheumatica Rheumatoid arthritis Wrist fracture Home Medications folic acid 1 mg tablet 2 tab PO DAILY SUPPLEMENT 10/20/15 [History Last Taken 11/28/20 09:30 2 tab] fluoxetine 10 mg capsule 10 mg PO DAILY DEPRESSION 10/21/15 [History Last Taken 11/28/20 09:30 10 mg] cholecalciferol (vitamin D3) 50 mcg (2,000 unit) capsule 1,000 unit PO DAILY SUPPLEMENT 12/25/17 [History Last Taken 11/28/20 09:30 1000 u] aspirin 81 mg tablet,delayed release 81 mg PO DAILY heart health 12/24/19 [History Last Taken 11/28/20 09:30 81 mg] ascorbic acid (vitamin C) 500 mg capsule 500 mg PO DAILY Supplement 03/12/20 [History Last Taken 11/28/20 09:30 500 mg] atorvastatin 10 mg tablet 10 mg PO QHS cholesterol 11/28/20 [History Last Taken 11/28/20 09:30 10 mg] acetaminophen 500 mg tablet 500 mg PO Q6H PRN Pain 01/11/21 [History Last Taken Unknown] amlodipine 5 mg tablet 5 mg PO DAILY 01/11/21 [History Last Taken Unknown] methotrexate sodium 2.5 mg tablet 15 mg PO DA SILVA RHEUMATOID 01/11/21 [History Last Taken Unknown] hydroxychloroquine 200 mg tablet 200 mg PO BID inflammation 04/13/21 [History Last Taken Unknown] furosemide 40 mg tablet 40 mg PO DAILY #90 tabs 07/05/21 [Rx Last Taken Unknown] potassium chloride 20 mEq tablet,extended release(part/cryst) 20 meq PO BIDCM #180 tabs 07/05/21 [Rx Last Taken Unknown] Allergy/AdvReac Type Severity Reaction Status Date / Time Penicillins [PCN] Allergy Rash Verified 09/12/21 14:06 Sulfa (Sulfonamide Allergy Rash Verified 09/12/21 14:06 Antibiotics) lisinopril AdvReac Unknown unknown Verified 09/12/21 14:06 azithromycin [From Zithromax] AdvReac Nausea/Vom/ Verified 09/12/21 14:06 Diarrhea codeine AdvReac Other Verified 09/12/21 14:06 hydrochlorothiazide AdvReac Rash Verified 09/12/21 14:06 nitroglycerin AdvReac Other Verified 09/12/21 14:06 [From Nitroglyn] Family History Sister Diabetes Asthma Hypertension Leukemia Brother Heart disease Hypertension Diabetes Father Myocardial infarction CAD (coronary artery disease) Mother Cancer Liver Hypertension Acute arthritis Surgical History History of section History of colectomy (~2001) History of colonoscopy (~2015) History of hernia repair Social History Smoking Status: Former smoker alcohol intake: never substance use type: does not use caffeine: Yes Type: coffee Number of servings: 2 ROS ROS Narrative Constitutional: Reports fatigue and weakness, and severe abdominal pain. HEENT: Reports systems reviewed and no addt'l complaints, except as documented Respiratory/Chest: Denies chest pressure or heaviness or tightness. Generalized abdominal pain with radiation to epigastrium and lower chest. States mild shortness of breath due to pain. Gastrointestinal: No GI bleed.?As mentioned in HPI Genitourinary: Denies burning urination or new urinary tract symptoms Musculoskeletal: Chronic joint pain and limited range of motion of hip and knee joints Neurologic: Denies seizure-like activity. No focal weakness or numbness skin: No ulcer. No rash Endocrinology: Reports systems reviewed and no addt'l complaints, except as documented Hematologic/Lymphatic: Reports systems reviewed and no addt'l complaints, except as documented Rest 14 ROS are negative except as mentioned in HPI Vital Signs Vital Signs Vital Signs: 05/05/22 03:01 05/05/22 05:00 05/05/22 06:11 Temperature 96.0 F L 96.8 F L Temperature Source Temporal Temporal Pulse Rate 66 69 72 Respiratory Rate 20 H 18 20 H Blood Pressure 142/64 H 142/63 H 145/60 H Blood Pressure Mean 90 89 88 Pulse Ox 99 96 99 Oxygen Delivery Method Room Air Room Air Room Air Weight Weight: 211 lb 3.245 oz Body Mass Index (BMI) 34.0 Physical Exam Narrative General: Alert, Oriented x3, Cooperative. In moderate distress due to abdominal pain HEENT: Atraumatic, PERRLA, EOMI, Normocephalic. NG tube with gastric and slight greenish bilious aspirate. Oral: Oral mucosa dry. No Gingival or Mucosal Lesions/ Ulcerations Neck: Supple, No JVD, Negative Carotid Bruits Lungs: Air entry diminished in bilateral lung bases. No crepitation/rhonchi/wheezing Cardiovascular: Regular rate, Regular Rhythm, Normal S1, Normal S2, No murmurs Abdomen: Soft, abdomen distended, tenderness present all around, maximum at right lower quadrant. Bowel sounds sluggish to absent. : No renal angle tenderness. No suprapubic tenderness. Extremities: No edema, Capillary Refill Less than 3 Seconds Skin: No rashes, No breakdown Musculoskeletal: No Tenderness to Palpation of Joints or Extremities. Bony deformity, arthritis of knee and hip joints Neurological: Cranial nerves II-XII grossly intact, DTR 2+/4 and Symmetrical, Neuro grossly intact Psych/Mental Status: Flat affect. In pain Results Lab / Micro Data Result Diagrams: 05/05/22 03:26 05/05/22 03:26 Labs: Laboratory Results - last 24 hr 05/05/22 03:26: WBC 9.6, RBC 4.33, Hgb 13.2, Hct 40.0, MCV 92.4, MCH 30.5, MCHC 33.0, RDW Std Deviation 48.8 H, RDW Coeff of Unique 14.6, Plt Count 265, MPV 9.2, Immature Gran % (Auto) 0.400, Neut % (Auto) 74.4 H, Lymph % (Auto) 16.8 L, [place] % (Auto) 5.5, Eos % (Auto) 2.7, Baso % (Auto) 0.2, Absolute Neuts (auto) 7.1, Absolute Lymphs (auto) 1.60, Nucleated RBC % 0 05/05/22 03:26: Sodium 137, Potassium 3.8, Chloride 102, Carbon Dioxide 28.0, Anion Gap 7, BUN 19 H, Creatinine 1.14 H, Estim Creat Clear Calc 37.46, Est GFR (MDRD) Af Amer 59 L, Est GFR (MDRD) Non-Af 49 L, BUN/Creatinine Ratio 16.7, Glucose 170 H, Calcium 9.2, Total Bilirubin 0.70, AST 24, ALT 26, Alkaline Phosphatase 82, Total Protein 7.1, Albumin 3.5, Globulin 3.6, Albumin/Globulin Ratio 1.0, Lipase 68 L 05/05/22 04:55: Urine Color Yellow, Urine Clarity Clear, Urine pH 7.0, Ur Specific [place] 1.010, Urine Protein 15 H, Urine Glucose (UA) Normal, Urine Ketones Negative, Urine Occult Blood 10 H, Urine Nitrite Negative, Urine Bilirubin Negative, Urine Urobilinogen Normal, Ur Leukocyte Esterase 25 H, Urine RBC 0 SEEN, Urine WBC 0-5 SEEN, Ur Squamous Epith Cells 0-5 SEEN, Urine Bacteria 2+, Urine Mucus 0 SEEN Micro: Microbiology 05/05/22 03:35 Nasal Secretion SARS-CoV-2 Antigen (Rapid) - Final Radiology Impression Abdomen/Pelvis CT 05/05/22 03:12 IMPRESSION: Recurrent mechanical small bowel obstruction within the midline anterior abdominal cavity, possibly secondary to adhesions. There is associated mesenteric edema and trace mesenteric ascites. Location of bowel obstruction is similar to previous exam. Electronically Signed: Freddy Henson MD at 5:11 EDT , ADDENDUM: 05/05/22 0524 IMPRESSION: Recurrent mechanical small bowel obstruction within the midline anterior abdominal cavity, possibly secondary to adhesions. There is associated mesenteric edema and trace mesenteric ascites. Location of bowel obstruction is similar to previous exam. N.B. : The above Results were Read Back by Freddy Henson MD to MD Medina, and understanding confirmed on 05/05/2022 05:17:06 (ET). Electronically Signed: Freddy Henson MD at 5:11 EDT , Assessment & Plan Assessment/Plan (1) Small bowel obstruction: PLAN: Plan This 77-year-old female came to ED for sudden onset of worsening abdominal pain and features suggestive for small bowel obstruction. 1. Small bowel obstruction mostly due to adhesions: CT abdomen individually reviewed and I agree with the report. Patient is admitted on [facility] floor. IV fluid Ringer lactate. NG tube inserted and connected to moderate continuous pressure. Surgeon Dr. Betts is consulted. Clinical monitoring of abdominal pain and distention. Strict intake and output. Pain control. Lipase 68. UA is negative LE 25, nitrite negative. Patient does not have signs and symptoms of dysuria or UTI. 2. Hypertension: Blood pressure is controlled. On IV hydralazine milligrams every 4 hourly as needed for systolic blood pressure more than 180 mmHg. 3. Dyslipidemia: Hold statin. 4. Anxiety/depression: Hold fluoxetine. 5. Rheumatoid arthritis: Hold hydroxychloroquine and methotrexate 6. CKD stage IIIb: Patient BUN/creatinine 19/1.14 slightly elevated from baseline 1.02 with estimated creatinine clearance about 47 mL/min. Creatinine increased does not merit the diagnosis of BARBARA. On IV fluid. Monitor kidney function electrolytes daily. 7. Home testing of COVID-19 rapid positive: Patient tested positive of COVID-19 rapid antigen about 5 days ago. Her sister was sick and she was around her sister about 5 days ago when her sister tested positive. COVID-19 PCR ordered. She is not hypoxic or tachypneic. CT abdomen shows minimal dependent atelec tasis. Small hiatus hernia, chronic. 8. History of dyspnea on exertion: Patient had last echo in November 2020 reported EF 65% with trivial MR, trivial TR, RVSP 31 mmHg. Stress test in November 2020 reported myocardial perfusion within normal limit. Hold amlodipine and Lasix. Patient follows in pulmonary clinic. She had PFT which was grossly within normal limit. She had 6-minute walk test that required no supplemental oxygen. History of obstructive sleep apnea on CPAP. DVT prophylaxis moderate risk: Heparin 5000 subcutaneous every 8 hourly. Discontinue if platelet count drops less than 50,000 or hemoglobin less than 8 g% Living will/advanced directive/end of life care: Patient does have living will or advanced directive. Her daughter is next of kin. After discussion of benefits/risks procedures involved with full code, DNR CC arrest and DNR CC, the patient opted for DNRCC arrest with no intubation. Patient doesn't want artificial life support including intubation, tube feed, ventilator and/chest compression, central venous catheter, vasopressor or DC shock in terminal or irreversible state. Total time spent in [id number] encounter in discussion of advanced direct jerome 16 minutes. Microbiology Past 72 Hours 05/05/22 03:35 Nasal Secretion SARS-CoV-2 Antigen (Rapid) - Final Laboratory Results 05/05/22 03:26: WBC 9.6, RBC 4.33, Hgb 13.2, Hct 40.0, MCV 92.4, MCH 30.5, MCHC 33.0, RDW Std Deviation 48.8 H, RDW Coeff of Unique 14.6, Plt Count 265, MPV 9.2, Immature Gran % (Auto) 0.400, Neut % (Auto) 74.4 H, Lymph % (Auto) 16.8 L, [place] % (Auto) 5.5, Eos % (Auto) 2.7, Baso % (Auto) 0.2, Absolute Neuts (auto) 7.1, Absolute Lymphs (auto) 1.60, Nucleated RBC % 0 05/05/22 03:26: Sodium 137, Potassium 3.8, Chloride 102, Carbon Dioxide 28.0, Anion Gap 7, BUN 19 H, Creatinine 1.14 H, Estim Creat Clear Calc 37.46, Est GFR (MDRD) Af Amer 59 L, Est GFR (MDRD) Non-Af 49 L, BUN/Creatinine Ratio 16.7, Glucose 170 H, Calcium 9.2, Total Bilirubin 0.70, AST 24, ALT 26, Alkaline Phosphatase 82, Total Protein 7.1, Albumin 3.5, Globulin 3.6, Albumin/Globulin Ratio 1.0, Lipase 68 L 05/05/22 03:26: Phosphorus 2.8, Magnesium 2.1 05/05/22 04:55: Urine Color Yellow, Urine Clarity Clear, Urine pH 7.0, Ur Specific [place] 1.010, Urine Protein 15 H, Urine Glucose (UA) Normal, Urine Ketones Negative, Urine Occult Blood 10 H, Urine Nitrite Negative, Urine Bilirubin Negative, Urine Urobilinogen Normal, Ur Leukocyte Esterase 25 H, Urine RBC 0 SEEN, Urine WBC 0-5 SEEN, Ur Squamous Epith Cells 0-5 SEEN, Urine Bacteria 2+, Urine Mucus 0 SEEN Charges/Coding Visit Charges Inpatient E&M: 06381 Init Hosp L3 Procedures Hospitalists Procedures: 96095 Advncd Care Plan 30 Min
[2022-05-05 06:23] LABS: Magnesium 2.1 mg/dL (1.6-2.6); Phosphorus 2.8 mg/dL (2.5-4.9)
[2022-05-05] MEDS: 0.9% Saline Lock 10 ML Syringe IV ×3 (07:04→09:41)
[2022-05-05] MEDS: Lactated Ringers 1,000 ML 75 ML IV ×2 (07:04→14:56)
--- NOTE | 2022-05-05 08:30 | CPS ---
started by germain
[2022-05-05] MEDS: Heparin Injection (Vial) 5,000 UNIT/ML VIAL 5000 UNIT SC ×3 (08:40→21:25)
--- NOTE | 2022-05-05 08:41 | EX.PCM.CON.S ---
Assessment & Plan Assessment/Plan (1) Small bowel obstruction: PLAN: Patient with large anterior abdominal wall mesh, surgery would be problematic with many risks. This has been explained to patient and she understands. I have offered transfer to a tertiary care hospital, but patient defers this. Will continue conservative treatment - IV hydration, pain medications, NG tube decompression - in hopes that this will resolve SBO as it has in the past. Will follow patient with you - Appreciate hospitalist service care of this patient. HPI Consult Data Date of Consult: 05/05/22 HPI Narrative Reason for Consultation: I was asked to evaluate patient by Dr. Jacqueline Burgos HPI Narrative: FABIO PORTILLO, is a 77 F who presents with generalized abdominal pain since yesterday afternoon. She states that she has had a small bowel movement in the past 12 hours. She does not recall any passage of flatus since yesterday. She has had frequent bouts of nausea and emesis since yesterday and complains of severe abdominal pain. She presents to [facility] ED. Workup reveals - normal WBC 9.6 with left shift of differential, elevated creatinine, normal anion gap and serum CO2. Abdominal CT scan reveals dilated small bowel and possible transition point c/w SBO. KUB reveals large outline of mesh by maria m of almost entire anterior surface of abdominal wall. Patient has a complicated surgical history. She is status post low anterior resection by Dr. Mei at [facility] for high rectal cancer - stage I in 2001. She underwent laparoscopic ventral hernia repair by Dr. Montero in January 2007 with placement of large sized mesh. She was admitted for hospitalizations for SBO - 2012, 2015, February 2020, November 2020, and most recently September 2021. Patient's SBO resolved with conservative treatment - no surgery required. [facility] Medical History Abdominal pain Abnormal mammogram of left breast Bowel obstruction Carpal tunnel syndrome CKD (chronic kidney disease) stage 3, GFR 30-59 ml/min Essential hypertension FH: total knee replacement GERD (gastroesophageal reflux disease) History of colon cancer Mixed hyperlipidemia REY on CPAP Polymyalgia rheumatica Rheumatoid arthritis Wrist fracture Home Medications folic acid 1 mg tablet 2 tab PO DAILY SUPPLEMENT 10/20/15 [History Last Taken 11/28/20 09:30 2 tab] fluoxetine 10 mg capsule 10 mg PO DAILY DEPRESSION 10/21/15 [History Last Taken 11/28/20 09:30 10 mg] cholecalciferol (vitamin D3) 50 mcg (2,000 unit) capsule 1,000 unit PO DAILY SUPPLEMENT 12/25/17 [History Last Taken 11/28/20 09:30 1000 u] aspirin 81 mg tablet,delayed release 81 mg PO DAILY heart health 12/24/19 [History Last Taken 11/28/20 09:30 81 mg] ascorbic acid (vitamin C) 500 mg capsule 500 mg PO DAILY Supplement 03/12/20 [History Last Taken 11/28/20 09:30 500 mg] atorvastatin 10 mg tablet 10 mg PO QHS cholesterol 11/28/20 [History Last Taken 11/28/20 09:30 10 mg] acetaminophen 500 mg tablet 500 mg PO Q6H PRN Pain 01/11/21 [History Last Taken Unknown] amlodipine 5 mg tablet 5 mg PO DAILY 01/11/21 [History Last Taken Unknown] methotrexate sodium 2.5 mg tablet 15 mg PO DA SILVA RHEUMATOID 01/11/21 [History Last Taken Unknown] hydroxychloroquine 200 mg tablet 200 mg PO BID inflammation 04/13/21 [History Last Taken Unknown] furosemide 40 mg tablet 40 mg PO DAILY #90 tabs 07/05/21 [Rx Last Taken Unknown] potassium chloride 20 mEq tablet,extended release(part/cryst) 20 meq PO BIDCM #180 tabs 07/05/21 [Rx Last Taken Unknown] Allergy/AdvReac Type Severity Reaction Status Date / Time Penicillins [PCN] Allergy Rash Verified 09/12/21 14:06 Sulfa (Sulfonamide Allergy Rash Verified 09/12/21 14:06 Antibiotics) lisinopril AdvReac Unknown unknown Verified 09/12/21 14:06 azithromycin [From Zithromax] AdvReac Nausea/Vom/ Verified 09/12/21 14:06 Diarrhea codeine AdvReac Other Verified 09/12/21 14:06 hydrochlorothiazide AdvReac Rash Verified 09/12/21 14:06 nitroglycerin AdvReac Other Verified 09/12/21 14:06 [From Nitroglyn] Family History Sister Diabetes Asthma Hypertension Leukemia Brother Heart disease Hypertension Diabetes Father Myocardial infarction CAD (coronary artery disease) Mother Cancer Liver Hypertension Acute arthritis Surgical History History of appendectomy History of section History of colectomy (~2001) History of colonoscopy (~2015) History of hernia repair Social History Smoking Status: Former smoker alcohol intake: never substance use type: does not use caffeine: Yes Type: coffee Number of servings: 2 ROS Constitutional Constitutional: Reports chills and fatigue; Denies fever(s) or weight loss Cardiovascular Cardiovascular: Denies chest pain at rest Respiratory/Chest Respiratory/Chest: Denies dyspnea or productive cough Gastrointestinal Gastrointestinal: Reports other Details: see HPI Genitourinary Genitourinary: Denies dysuria or hematuria Musculoskeletal Musculoskeletal: Reports other Details: has rheumatoid arthritis ; Denies abnormal gait Integumentary Integumentary: Denies jaundice Neurologic Neurologic: Denies loss of vision Physical Exam Const alert and oriented x3 Nutritional Appearance: overweight HEENT normocephalic Eyes Eyes Narrative: sclera clear Neck supple Resp normal respiratory effort Effort and Inspection: able to speak in complete sentences Cardio Rate: regular rate GI GI Narrative: abdomen - soft and obese, well healed midline incisional scar, generalized tenderness to palpation - no peritoneal signs noted Extremity no calf tenderness Skin no jaundice Psych affect normal Medical Records Data Attestation: I reviewed the patient's medical records Lab / Micro Data Attestation: I reviewed the patient's lab results. Result Diagrams: 05/05/22 03:26 05/05/22 03:26 Labs: Laboratory Results - last 24 hr 05/05/22 03:26: WBC 9.6, RBC 4.33, Hgb 13.2, Hct 40.0, MCV 92.4, MCH 30.5, MCHC 33.0, RDW Std Deviation 48.8 H, RDW Coeff of Unique 14.6, Plt Count 265, MPV 9.2, Immature Gran % (Auto) 0.400, Neut % (Auto) 74.4 H, Lymph % (Auto) 16.8 L, [place] % (Auto) 5.5, Eos % (Auto) 2.7, Baso % (Auto) 0.2, Absolute Neuts (auto) 7.1, Absolute Lymphs (auto) 1.60, Nucleated RBC % 0 05/05/22 03:26: Sodium 137, Potassium 3.8, Chloride 102, Carbon Dioxide 28.0, Anion Gap 7, BUN 19 H, Creatinine 1.14 H, Estim Creat Clear Calc 37.46, Est GFR (MDRD) Af Amer 59 L, Est GFR (MDRD) Non-Af 49 L, BUN/Creatinine Ratio 16.7, Glucose 170 H, Calcium 9.2, Total Bilirubin 0.70, AST 24, ALT 26, Alkaline Phosphatase 82, Total Protein 7.1, Albumin 3.5, Globulin 3.6, Albumin/Globulin Ratio 1.0, Lipase 68 L 05/05/22 03:26: Phosphorus 2.8, Magnesium 2.1 05/05/22 04:55: Urine Color Yellow, Urine Clarity Clear, Urine pH 7.0, Ur Specific [place] 1.010, Urine Protein 15 H, Urine Glucose (UA) Normal, Urine Ketones Negative, Urine Occult Blood 10 H, Urine Nitrite Negative, Urine Bilirubin Negative, Urine Urobilinogen Normal, Ur Leukocyte Esterase 25 H, Urine RBC 0 SEEN, Urine WBC 0-5 SEEN, Ur Squamous Epith Cells 0-5 SEEN, Urine Bacteria 2+, Urine Mucus 0 SEEN Micro: Microbiology 05/05/22 03:35 Nasal Secretion SARS-CoV-2 Antigen (Rapid) - Final Radiology Impression Abdomen/Pelvis CT 05/05/22 03:12 IMPRESSION: Recurrent mechanical small bowel obstruction within the midline anterior abdominal cavity, possibly secondary to adhesions. There is associated mesenteric edema and trace mesenteric ascites. Location of bowel obstruction is similar to previous exam. Electronically Signed: Freddy Henson MD at 5:11 EDT , ADDENDUM: 05/05/22 0524 IMPRESSION: Recurrent mechanical small bowel obstruction within the midline anterior abdominal cavity, possibly secondary to adhesions. There is associated mesenteric edema and trace mesenteric ascites. Location of bowel obstruction is similar to previous exam. N.B. : The above Results were Read Back by Freddy Henson MD to MD Medina, and understanding confirmed on 05/05/2022 05:17:06 (ET). Electronically Signed: Freddy Henson MD at 5:11 EDT , KUB X-Ray 05/05/22 06:07 IMPRESSION: Obstructive bowel gas pattern with adequate position of enteric tube. Electronically Signed: Freddy Henson MD at 7:22 EDT ,
[2022-05-05] MEDS: Morphine 2 MG/ML Syringe IV (09:41)
--- NOTE | 2022-05-05 10:29 | NURSING ---
This RN walked into room and Dr. Betts had NG unclamp to suction and stated she gave pt contrast and to wait 34-45 min until hooking back up to suction. Pt vomitted 4oz approximately [address] Betts gave her the contrast. Pt was hooked back up to suction at 0930 45 min after constrast was given.
[2022-05-05 13:25] LABS: Anion Gap 8 (5-15); BUN 20 mg/dL (7-18); Calcium,Total 9.6 mg/dL (8.5-10.1); Chloride 106 mmol/L (98-107); Creatinine, Serum 1.11 mg/dL (0.55-1.02); EST Glomerular Filtration Rate 50 mL/min (>60); Est Glom Filt Rate - Afr Amer 61 mL/min (>60); Estimated Creatinine Clearance 38.47 ml/min; Glucose 172 mg/dL (74-106); Potassium 3.9 mmol/L (3.5-5.1); Sodium Level 139 mmol/L (136-145)
[2022-05-05 13:39] LABS: Lactic Acid 2.6 mmol/L (0.4-1.9)
[2022-05-05] MEDS: LACTATED RINGERS 250 ML 999 ML IV (14:27)
--- NOTE | 2022-05-05 14:42 | PCM.HOSP.N ---
Hospitalist Note Patient was admitted at around 6 AM on 05/05/2022 with a complaint of abdominal pain with associated nausea. She had a history of recurrent bowel obstruction. CT of the abdomen and pelvis showed small bowel obstruction within the midline mostly due to adhesions with several dilated small bowel loops with air-fluid level. She is being managed for small bowel obstruction, and is currently NPO, with NG tube in place. General surgery is on board. Continue keeping NPO and hydrate with IVF; continue IV pain meds. She apparently tested positive for covid 5 days prior to admission. COvid antigen test done here is negative. COVID PCR is pending. Continue gentle hydration with IVF. On heparin sc q8 for dvt prophylaxis. Rest as per admitting note, which I have reviewed.
[2022-05-05 17:03] LABS: Reflex Lactate? Y
[2022-05-05 18:21] LABS: Lactic Acid 3.5 mmol/L (0.4-1.9)
--- NOTE | 2022-05-05 18:33 | PCM.PN.BLA ---
Progress Note Patient is clinically much improved, she states that she has no abdominal pain, but just feels sore she states that she passed a very small amount of flatus Examination: abdomen is soft and benign with no peritoneal signs Impression: pSBO - resolving Plan: continue present therapy suspect that elevated serum lactic acid is BARBARA, patient is probably dehydrated given N/V prior to presentation and has had about 1500 of NG output since hospitalization will give another fluid bolus
--- NOTE | 2022-05-05 23:08 | CPS ---
due to NG placement unable to wear CPAP, will monitor sleep with o2
[2022-05-06 02:40] VITALS: BP 146/65; PULSE 75; RESP 18; TEMP 37; O2SAT 93
[2022-05-06] MEDS: Lactated Ringers 1,000 ML 75 ML IV (02:46)
--- NOTE | 2022-05-06 05:00 | RAD_ITS ---
STUDY: X-RAY - ABDOMEN/PELVIS REASON FOR EXAM: Female, 77 years old. bowel obstruction TECHNIQUE: 3 views of the abdomen were obtained. COMPARISON: Study of one-day prior. FINDINGS: Normal visualized lung bases. There are mildly dilated gas-filled loops of bowel noted throughout the abdomen appearing similar to one day prior. There is no demonstrated free abdominal air. A feeding tube is noted projecting over the left upper abdomen. Normal soft tissue structures. Normal visualized osseous structures. RAD/Abdomen Single View (Portable) IMPRESSION: Gas-filled loops of dilated bowel noted in the abdomen consistent with recent findings of small bowel obstruction. Electronically Signed: Gunnar Merlos MD at 9:51 EDT ,
[2022-05-06] MEDS: Heparin Injection (Vial) 5,000 UNIT/ML VIAL 5000 UNIT SC ×3 (06:09→21:23)
[2022-05-06 07:02] LABS: Absolute Lymphocyte Count 0.96 X10^3/uL (0.83-4.51); Absolute Neutrophil Count 4.6 X10^3/uL (2.0-7.7); Basophil# 0.02 X10^3/uL; Basophil% 0.3 % (0-1); Eosinophil# 0.11 X10^3/uL; Eosinophils% 1.6 % (0-5); Hematocrit 40.3 % (37-47); Hemoglobin 13.3 g/dL (12.0-15.0); Lymphocyte # 0.96 X10^3/ul (0.83-4.51); Lymphocyte % 14.4 % (19-41); Mean Corpuscular Hgb 30.4 pg (27.0-32.0); Mean Platelet Vol. 9.7 fl (6.2-12.0); NRBC Flagged by Analyzer 0 % (0-5); Neutrophil # 4.58 X10^3/uL (2.7-7.7); Neutrophil % 68.6 % (47-70); POSITIVE MORPHOLOGY YES; Platelet Count 272 K/mm3 (150-450); RBC Distribution Width CV 14.8 % (11.6-14.6); RBC Distribution Width SD 49.2 fl (35.1-43.9); Red Blood Count 4.38 M/mm3 (4.2-5.4); White Blood Count 6.7 K/mm3 (4.4-11.0)
[2022-05-06 07:06] LABS: Differential Indicated SCAN CRITERIA MET
[2022-05-06 07:37] LABS: Anion Gap 4 (5-15); BUN 28 mg/dL (7-18); BUN/Creat Ratio 22.2 RATIO (10-20); Calcium,Total 9.1 mg/dL (8.5-10.1); Chloride 103 mmol/L (98-107); Creatinine, Serum 1.26 mg/dL (0.55-1.02); EST Glomerular Filtration Rate 44 mL/min (>60); Est Glom Filt Rate - Afr Amer 53 mL/min (>60); Estimated Creatinine Clearance 33.89 ml/min; Glucose 110 mg/dL (74-106); Potassium 4.1 mmol/L (3.5-5.1); Sodium Level 138 mmol/L (136-145)
[2022-05-06 07:49] VITALS: O2SAT 93
--- NOTE | 2022-05-06 07:52 | PCM.PN.SRG ---
Subjective Subjective Patient feels some periumbilical pain, has not passed flatus, feels some rumblings suspect that elevated serum lactic acid is BARBARA, patient with increasing creatinine Objective Data Objective Data Vital Signs: Vital Signs Temp Pulse Resp BP Pulse Ox O2 Del Method O2 Flow Rate 98.6 F 75 18 146/65 H 93 Nasal Cannula 2 05/06/22 02:40 05/06/22 02:40 05/06/22 02:40 05/06/22 02:40 05/06/22 07:49 05/06/22 07:49 05/06/22 07:49 Oxygen Flow Rate (L/min) 2 Oxygen Delivery Method Nasal Cannula Weight: 82.7 kg Body Mass Index (BMI) 29.2 Intake & Output: Intake and Output for Last 24 Hours 05/04/22 05/05/22 05/06/22 23:59 23:59 23:59 Intake Total 1430 / 1430 977.5 / 977.5 Output Total 1870 / 1870 1050 / 1050 Balance -440 / -440 -72.5 / -72.5 Lab / Micro Data Result Diagrams: 05/06/22 06:30 05/06/22 06:30 Labs: Laboratory Results - last 24 hr 05/05/22 07:30: COVID-19 ([facility]) Not Detected 05/05/22 13:03: Sodium 139, Potassium 3.9, Chloride 106, Carbon Dioxide 25.0, Anion Gap 8, BUN 20 H, Creatinine 1.11 H, Estim Creat Clear Calc 38.47, Est GFR (MDRD) Af Amer 61, Est GFR (MDRD) Non-Af 50 L, BUN/Creatinine Ratio 18.0, Glucose 172 H, Calcium 9.6 05/05/22 13:03: Lactic Acid 2.6 H* 05/05/22 17:30: Lactic Acid 3.5 H* 05/06/22 06:30: WBC 6.7, RBC 4.38, Hgb 13.3, Hct 40.3, MCV 92.0, MCH 30.4, MCHC 33.0, RDW Std Deviation 49.2 H, RDW Coeff of Unique 14.8 H, Plt Count 272, MPV 9.7, Immature Gran % (Auto) 0.100, Neut % (Auto) 68.6, Lymph % (Auto) 14.4 L, Alfalfa % (Auto) 15.0 H, Eos % (Auto) 1.6, Baso % (Auto) 0.3, Absolute Neuts (auto) 4.6, Absolute Lymphs (auto) 0.96, Nucleated RBC % 0 05/06/22 06:30: Sodium 138, Potassium 4.1, Chloride 103, Carbon Dioxide 31.0, Anion Gap 4 L, BUN 28 H, Creatinine 1.26 H, Estim Creat Clear Calc 33.89, Est GFR (MDRD) Af Amer 53 L, Est GFR (MDRD) Non-Af 44 L, BUN/Creatinine Ratio 22.2 H, Glucose 110 H, Calcium 9.1 Micro: Microbiology 05/05/22 03:35 Nasal Secretion SARS-CoV-2 Antigen (Rapid) - Final Physical Exam Const alert and oriented x3 General Appearance: cooperative Neck supple Resp normal respiratory effort Cardio regular rate GI GI Narrative: abdomen is soft but more tender in the periumblical area as compared to yesterday Assessment & Plan Assessment/Plan (1) Small bowel obstruction: PLAN: patient with rising creatinine, concerning for BARBARA Also, she is not improving with regard to bowel function, will obtain gastrografin small bowel study
[2022-05-06 08:51] VITALS: BP 123/65; PULSE 88; RESP 18; TEMP 36.5; O2SAT 97
--- NOTE | 2022-05-06 09:15 | RAD_ITS ---
INDICATION: SBO versus pSBO -- gastrografin only, discussed with radiologist EXAMINATION: Small bowel follow-through series. TECHNIQUE: Gastrograffin oral contrast was administered orally via NG tube to the patient. Sequential AP images of the abdomen and pelvis were obtained before and after administration of oral contrast immediately, at 15 minutes, at 30 minutes, at 60 minutes, and 90 minutes. Total number of Images: 10 COMPARISON: Same-day abdomen radiograph. CT abdomen/pelvis from yesterday. FINDINGS: An NG tube terminates in the gastric body. Surgical mesh tacks overlie the abdomen. Stable appearance of the right hip arthroplasty surgical hardware. Oral contrast is administered. Contrast reaches the large bowel between 60 to 90 minutes with normal transit time. There are dilated loops of small bowel throughout the stomach measuring up to 6 cm in width. No contrast extravasation. No masses or strictures are identified. RAD/Small Bowel Series Only IMPRESSION: Findings are favored to relate to ileus rather than obstruction as contrast reaches large bowel with normal transit time. Electronically Signed: Sabino Gaines, at 12:01 EDT ,
--- NOTE | 2022-05-06 09:50 | PN.HOSP_ITS ---
Subjective Subjective Follow up on acute small bowel obstruction: Patient was seen and examined. Patient had a small bowel follow-through that showed ileus. She had had 2 solid bowel movements, and 3 liquid bowel movement. She has been passing gas. Denied any abdominal discomfort. Objective Data Objective Data Vital Signs: Vital Signs Temp Pulse Resp BP Pulse Ox O2 Del Method O2 Flow Rate 97.7 F L 88 18 123/65 H 97 Nasal Cannula 2 05/06/22 08:51 05/06/22 08:51 05/06/22 08:51 05/06/22 08:51 05/06/22 08:51 05/06/22 09:07 05/06/22 09:07 Oxygen Flow Rate (L/min) 2 Oxygen Delivery Method Nasal Cannula Weight: 82.7 kg Body Mass Index (BMI) 29.2 Intake & Output: Intake and Output for Last 24 Hours 05/04/22 05/05/22 05/06/22 23:59 23:59 23:59 Intake Total 1430 / 1430 977.5 / 977.5 Output Total 1870 / 1870 1050 / 1050 Balance -440 / -440 -72.5 / -72.5 Lab / Micro Data Result Diagrams: 05/06/22 06:30 05/06/22 06:30 Labs: Laboratory Results - last 24 hr 05/05/22 07:30: COVID-19 ([facility]) Not Detected 05/05/22 13:03: Sodium 139, Potassium 3.9, Chloride 106, Carbon Dioxide 25.0, Anion Gap 8, BUN 20 H, Creatinine 1.11 H, Estim Creat Clear Calc 38.47, Est GFR (MDRD) Af Amer 61, Est GFR (MDRD) Non-Af 50 L, BUN/Creatinine Ratio 18.0, Glucose 172 H, Calcium 9.6 05/05/22 13:03: Lactic Acid 2.6 H* 05/05/22 17:30: Lactic Acid 3.5 H* 05/06/22 06:30: WBC 6.7, RBC 4.38, Hgb 13.3, Hct 40.3, MCV 92.0, MCH 30.4, MCHC 33.0, RDW Std Deviation 49.2 H, RDW Coeff of Unique 14.8 H, Plt Count 272, MPV 9.7, Immature Gran % (Auto) 0.100, Neut % (Auto) 68.6, Lymph % (Auto) 14.4 L, [place] % (Auto) 15.0 H, Eos % (Auto) 1.6, Baso % (Auto) 0.3, Absolute Neuts (auto) 4.6, Absolute Lymphs (auto) 0.96, Nucleated RBC % 0 05/06/22 06:30: Sodium 138, Potassium 4.1, Chloride 103, Carbon Dioxide 31.0, Anion Gap 4 L, BUN 28 H, Creatinine 1.26 H, Estim Creat Clear Calc 33.89, Est GFR (MDRD) Af Amer 53 L, Est GFR (MDRD) Non-Af 44 L, BUN/Creatinine Ratio 22.2 H , Glucose 110 H, Calcium 9.1 Micro: Microbiology 05/05/22 03:35 Nasal Secretion SARS-CoV-2 Antigen (Rapid) - Final Physical Exam Narrative Physical exam: General: Alert, Oriented x3, Cooperative, NG tube in situ, with clear to intermittent dark brown gastric residue HEENT: Atraumatic Oral: Moist Mucosa Neck: Supple Lungs: Clear to auscultation Cardiovascular: HS I+II, regular, no murmurs Abdomen: Bowel Sounds Present, Soft, Non Tender Extremities: No edema Skin: No rashes, No breakdown Neurological: Grossly intact Psych/Mental Status: Appropriate Assessment & Plan Assessment/Plan (1) SBO (small bowel obstruction): PLAN: Plan 1. Acute small bowel obstruction versus ileus, likely worsened by underlying adhesions Patient being managed conservatively, general surgery following She underwent small bowel follow-through which showed ileus General surgery following, follow-up on recommendations 2. Hypertension, controlled, continues to monitor off medications Hydralazine prn 3. Anxiety/depression, continue to monitor off fluoxetine 4. Dyslipidemia, off statins for now 5. Rheumatoid arthritis, hold home hydroxychloroquine and methotrexate 6. DVT prophylaxis - Heparin subcu Charges/Coding Visit Charges Inpatient E&M: 61336 Subs Hosp L2
--- NOTE | 2022-05-06 12:00 | CASEMGMT ---
RN CM Face to Face with patient for initial transition planning/care coordination assessment. RN CM introduced self and role at [facility]. Patient lying in bed, alert and oriented. Patient willing to participate in assessment and is able to answer all questions appropriately. Care providers, pharmacy, and demographics verified. Patient wishes to discharge home, denies need for home health at this time. Patient states she has no further needs or concerns at this time. CM to follow for discharge planning needs that may arise. 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 Patient states she is independent at home. Transportation: self, daughter DME/HHC: Patient states she has shower chair, raised toilet, cane, grab bars, walker, cpap, and pulse ox at home. No previous HHC or SNF. Disposition Plan: Patient to discharge home with family support and follow-up plans in place. Micaela MCALLISTER, RN, CM
[2022-05-06] MEDS: 0.9% Saline Lock 10 ML Syringe IV (12:36)
[2022-05-06 14:47] VITALS: BP 133/54; PULSE 86; RESP 18; TEMP 36.4; O2SAT 98
[2022-05-06] MEDS: Lactated Ringers 1,000 ML 100 ML IV (15:43)
[2022-05-06 20:39] VITALS: BP 135/65; PULSE 81; RESP 16; TEMP 36.4; O2SAT 95
[2022-05-07] MEDS: Lactated Ringers 1,000 ML 100 ML IV (02:24)
[2022-05-07 02:35] VITALS: BP 120/54; PULSE 71; RESP 16; TEMP 36.6; O2SAT 98
[2022-05-07] MEDS: Heparin Injection (Vial) 5,000 UNIT/ML VIAL 5000 UNIT SC ×2 (05:15→13:19)
[2022-05-07 09:00] VITALS: BP 118/66; PULSE 71; RESP 18; TEMP 36.5; O2SAT 97
--- NOTE | 2022-05-07 10:25 | DCINST_ITS ---
Discharge Instructions Diet Discharge Diet: - (Low fiber, low residue diet) Activity Discharge Activity: Return to Normal Activity Follow Up Care Test Results: Test results from this visit will be discussed in further detail at your follow- up appointment, if applicable. Discharge Plan Admission Admit Date/Time: 05/05/22 05:46 Primary Reason for Your Visit: Acute small bowel obstruction Attending Provider: Albertina Shepherd Primary Care Provider: Jesus Ballard Consulting Providers: Puja Betts ; Michael Mcghee ; Jacqueline Burgos Instructions Additional Instructions / Restrictions: Continue on a low residue, low fiber diet until you see general surgery in the outpatient Continue to keep yourself hydrated Follow-up with your primary care doctor within 1 to 2 weeks. Discharge Orders/Prescriptions Prescriptions: Continued acetaminophen 500 mg tablet 500 mg PO Q6H PRN (Reason: Pain) potassium chloride 20 mEq tablet,ER particles/crystals 20 meq PO BIDCM Qty: 180 3RF folic acid 1 MG tablet 2 tab PO DAILY Label Comments: supplement fluoxetine 10 MG capsule 10 mg PO DAILY Label Comments: depression methotrexate sodium 2.5 mg tablet 15 mg PO DA SILVA cholecalciferol (vitamin D3) 2,000 UNIT capsule 1,000 unit PO DAILY aspirin 81 MG tablet,delayed release (DR/EC) 81 mg PO DAILY hydroxychloroquine 200 mg tablet 200 mg PO BID atorvastatin 10 MG tablet 10 mg PO QHS No Action amlodipine 5 mg tablet 5 mg PO DAILY furosemide 40 mg tablet 40 mg PO DAILY Qty: 90 3RF ascorbic acid (vitamin C) 500 MG capsule 500 mg PO DAILY Referrals / Follow Up: Jesus Ballard MD [Primary Care Provider] - Puja Betts MD [Med Staff - Active Staff] - Within 2 Weeks Disposition Disposition (needs filled in before D/C Order can be placed): Home, Self Care
--- NOTE | 2022-05-07 10:41 | PCM.DC.SUM ---
Providers Date of Admission: 05/05/22 Date of Discharge: 05/07/22 Primary Care Physician: Dr. Jesus Ballard MD Consultations 05/05/22 06:50 Consult: General Surgery Routine Consulting Provider: Puja Betts Reason for Consult: SBO on NG TUBE, Rec SBO EMERGENT Consult: No MD Notified: Yes Date Notified: 05/05/22 Time Notified: 06:44 Method of Notification: ED Physician Initiated Reason For Visit: SMALL BOWEL OBSTRUCTION Diagnosis Discharge Diagnosis (1) SBO (small bowel obstruction): Status: Acute Code(s): K56.609 - Unspecified intestinal obstruction, unspecified as to partial versus complete obstruction Medications at Discharge Home Medications folic acid 1 mg tablet 2 tab PO DAILY SUPPLEMENT 10/20/15 fluoxetine 10 mg capsule 10 mg PO DAILY DEPRESSION 10/21/15 cholecalciferol (vitamin D3) 50 mcg (2,000 unit) capsule 1,000 unit PO DAILY SUPPLEMENT 12/25/17 aspirin 81 mg tablet,delayed release 81 mg PO DAILY heart health 12/24/19 ascorbic acid (vitamin C) 500 mg capsule 500 mg PO DAILY Supplement 03/12/20 atorvastatin 10 mg tablet 10 mg PO QHS cholesterol 11/28/20 acetaminophen 500 mg tablet 500 mg PO Q6H PRN Pain 01/11/21 amlodipine 5 mg tablet 5 mg PO DAILY 01/11/21 methotrexate sodium 2.5 mg tablet 15 mg PO DA SILVA RHEUMATOID 01/11/21 hydroxychloroquine 200 mg tablet 200 mg PO BID inflammation 04/13/21 furosemide 40 mg tablet 40 mg PO DAILY #90 tabs 07/05/21 potassium chloride 20 mEq tablet,extended release(part/cryst) 20 meq PO BIDCM #180 tabs 07/05/21 Hospital Course Operations None Procedures None Summary of Care Provided Minutes Spent on Discharge: 35 Hospital Course: 77-year-old female with past medical history of abdominal surgeries -status post low anterior resection for rectal cancer, stage I in 2001, laparoscopic ventral hernia repair in 2006 replacement of last side January. Patient has had recurrent small bowel obstructions, which resolved with conservative management, with the most recent 1 in September 2021. Patient presented again with generalized abdominal pain, no passage of flatus, nausea and emesis since a day prior to admission. Her WBC count was 9.6 with a left shift. CT scan of the abdomen and pelvis showed dilated small bowel with transition point suggestive for small bowel obstruction. Patient was admitted [facility] floor, managed conservatively with n.p.o., IV fluids, NG tube. General surgery was consulted. Patient underwent small bowel follow-through series and had multiple bowel movement. Imaging at that time was suggestive of ileus. Patient was started on a clear liquid diet. She tolerated it. She continued to improve and was discharged on a transitional diet - diet low fiber, low residue diet. She will follow-up with her primary care doctor within 1 to 2 weeks. She was encouraged to continue to hydrate herself. Physical Exam Narrative Physical exam: General: Alert, Oriented x3, Cooperative HEENT: Atraumatic Oral: Moist Mucosa Neck: Supple Lungs: Clear to auscultation Cardiovascular: HS I+II, regular, no murmurs Abdomen: Bowel Sounds Present, Soft, Non Tender Extremities: No edema Skin: No rashes, No breakdown Neurological: Grossly intact Psych/Mental Status: Appropriate Weight / BMI Weight Weight: 95 kg Body Mass Index (BMI) 29.2 ABG / Lab / Microbiology Data Result Diagrams: 05/06/22 06:30 05/06/22 06:30 Microbiology: Microbiology 05/05/22 03:35 Nasal Secretion SARS-CoV-2 Antigen (Rapid) - Final Radiography Diagnostic Testing: Radiology Impression Small Bowel X-Ray 05/06/22 09:15 IMPRESSION: Findings are favored to relate to ileus rather than obstruction as contrast reaches large bowel with normal transit time. Electronically Signed: Sabino Gaines, at 12:01 EDT , D/C Instructions Discharge Diet: - (Low fiber, low residue diet) Meaningful Use Info Meaningful Use Diagnoses (Choose all that apply): None applicable Discharge Plan Admission Admit Date/Time: 05/05/22 05:46 Primary Reason for Your Visit: Acute small bowel obstruction Attending Provider: Albertina Shepherd Primary Care Provider: Jesus Ballard Consulting Providers: Puja Betts ; Michael Mcghee ; Jacqueline Burgos Instructions Additional Instructions / Restrictions: Continue on a low residue, low fiber diet until you see general surgery in the outpatient Continue to keep yourself hydrated Follow-up with your primary care doctor within 1 to 2 weeks. Discharge Orders/Prescriptions Prescriptions: Continued acetaminophen 500 mg tablet 500 mg PO Q6H PRN (Reason: Pain) potassium chloride 20 mEq tablet,ER particles/crystals 20 meq PO BIDCM Qty: 180 3RF folic acid 1 MG tablet 2 tab PO DAILY Label Comments: supplement fluoxetine 10 MG capsule 10 mg PO DAILY Label Comments: depression methotrexate sodium 2.5 mg tablet 15 mg PO DA SILVA cholecalciferol (vitamin D3) 2,000 UNIT capsule 1,000 unit PO DAILY aspirin 81 MG tablet,delayed release (DR/EC) 81 mg PO DAILY hydroxychloroquine 200 mg tablet 200 mg PO BID atorvastatin 10 MG tablet 10 mg PO QHS No Action amlodipine 5 mg tablet 5 mg PO DAILY furosemide 40 mg tablet 40 mg PO DAILY Qty: 90 3RF ascorbic acid (vitamin C) 500 MG capsule 500 mg PO DAILY Referrals / Follow Up: Puja Betts MD [Med Staff - Active Staff] - 05/13/22 10:20 am (APPOINTMENT WITH ON Friday05/13/2022 @ 10:20AM) Jesus Ballard MD [Primary Care Provider] - 05/09/22 2:00 pm (APPOINTMENT WITH @ 2:00 ON Friday05/09/2022) Disposition Disposition (needs filled in before D/C Order can be placed): Home, Self Care Charges/Coding Visit Charges Inpatient E&M: 75051 Disch Hosp
--- NOTE | 2022-05-07 10:43 | CASEMGMT ---
GERMAN CM in to pt room, pt sitting up in chair. She states she is doing well, denies homegoing needs. Pt states she got up and washed up today and is getting around well. She states her dtr lives a half mile down the road and checks on her daily. Denies any needs.
--- NOTE | 2022-05-07 10:53 | PHA.DC.MR ---
Pharmacy Service has performed discharge medication reconciliation for this patient. The patient's discharge medication list was reviewed for discrepancies and discrepancies were resolved. Home Medications folic acid 1 mg tablet 2 tab PO DAILY SUPPLEMENT 10/20/15 fluoxetine 10 mg capsule 10 mg PO DAILY DEPRESSION 10/21/15 cholecalciferol (vitamin D3) 50 mcg (2,000 unit) capsule 1,000 unit PO DAILY SUPPLEMENT 12/25/17 aspirin 81 mg tablet,delayed release 81 mg PO DAILY heart health 12/24/19 ascorbic acid (vitamin C) 500 mg capsule 500 mg PO DAILY Supplement 03/12/20 atorvastatin 10 mg tablet 10 mg PO QHS cholesterol 11/28/20 acetaminophen 500 mg tablet 500 mg PO Q6H PRN Pain 01/11/21 amlodipine 5 mg tablet 5 mg PO DAILY 01/11/21 methotrexate sodium 2.5 mg tablet 15 mg PO DA SILVA RHEUMATOID 01/11/21 hydroxychloroquine 200 mg tablet 200 mg PO BID inflammation 04/13/21 furosemide 40 mg tablet 40 mg PO DAILY #90 tabs 07/05/21 potassium chloride 20 mEq tablet,extended release(part/cryst) 20 meq PO BIDCM #180 tabs 07/05/21
--- NOTE | 2022-05-07 11:21 | PCM.PN.SRG ---
Subjective Subjective patient denies abdominal pain tolerating liquids will be advanced to low residue diet has been passing flatus Objective Data Objective Data Vital Signs: Vital Signs Temp Pulse Resp BP Pulse Ox O2 Del Method O2 Flow Rate 97.7 F L 71 18 118/66 97 Room Air 2 05/07/22 09:00 05/07/22 09:00 05/07/22 09:00 05/07/22 09:00 05/07/22 09:00 05/07/22 09:00 05/07/22 02:35 Oxygen Flow Rate (L/min) 2 Oxygen Delivery Method Room Air Weight: 95 kg Body Mass Index (BMI) 29.2 Intake & Output: Intake and Output for Last 24 Hours 05/05/22 05/06/22 05/07/22 23:59 23:59 23:59 Intake Total 1430 / 1430 2197.5 / 2197.5 1110 / 1110 Output Total 1870 / 1870 1750 / 1750 Balance -440 / -440 447.5 / 447.5 1110 / 1110 Lab / Micro Data Result Diagrams: 05/06/22 06:30 05/06/22 06:30 Micro: Microbiology 05/05/22 03:35 Nasal Secretion SARS-CoV-2 Antigen (Rapid) - Final Radiography Diagnostic Testing: Radiology Impression Small Bowel X-Ray 05/06/22 09:15 IMPRESSION: Findings are favored to relate to ileus rather than obstruction as contrast reaches large bowel with normal transit time. Electronically Signed: Sabino Gaines, at 12:01 EDT , Physical Exam Const alert and oriented x3 General Appearance: cooperative and comfortable Neck supple Resp normal respiratory effort Effort and Inspection: able to speak in complete sentences Cardio regular rate GI GI Narrative: abdomen is soft and benign Assessment & Plan Assessment/Plan (1) Small bowel obstruction: PLAN: can discharge to home encouraged drinking fluids and staying on low residue diet patient to follow up with her PCP as needed
--- NOTE | 2022-05-07 11:26 | CASEMGMT ---
Social Work SW in to see pt. SW inquired about pt Advanced Directives. Pt stated she has HCPOA papers and LW papers. Pt named her Daughter, Julia Leahy, as her HCPOA. Pt stated she will bring a copy of HCPOA and LW documents to the hospital to be faxed at her earliest convenience. LYRIC Watt
[2022-05-07 13:55] VITALS: BP 109/53; PULSE 74; RESP 18; TEMP 36.7; O2SAT 98
== END 2022-05-07 15:38 | disposition home or self-care (01) | DRG 390 ==
LOC: ED 04:13 → MS3 06:17
PROVIDERS: Surgery; Admitting Provider Internal Medicine; Emergency Provider Emergency Medicine; PCP Internal Medicine; Visit Provider Internal Medicine
DX: K56.609 Unspecified intestinal obstruction, unspecified as to partial versus complete obstruction (principal); E78.5 Hyperlipidemia, unspecified; N18.32 Chronic kidney disease, stage 3b; K56.7 Ileus, unspecified; M06.9 Rheumatoid arthritis, unspecified; K44.9 Diaphragmatic hernia without obstruction or gangrene; I12.9 Hypertensive chronic kidney disease with stage 1 through stage 4 chronic kidney disease, or unspecified chronic kidney disease; G47.33 Obstructive sleep apnea (adult) (pediatric); Z51.5 Encounter for palliative care; Z66 Do not resuscitate; F32.A Depression, unspecified; Z87.891 Personal history of nicotine dependence; K66.0 Peritoneal adhesions (postprocedural) (postinfection); Z79.82 Long term (current) use of aspirin; Z99.89 Dependence on other enabling machines and devices; Z85.048 Personal history of other malignant neoplasm of rectum, rectosigmoid junction, and anus
CPT/HCPCS: 36415; 74018; 74177; 74250; 80048; 80053; 81001; 83605; 83690; 83735; 84100; 85025; 87635; 87811; 93005; 97162; 97165; 97166; 97530; 97803; 99251; 99285; J7030; J7120; Q9967; A4216; G0463; J2405; U0003; U0005

== ENCOUNTER → 2022-05-09 | Outpatient (CLI) | payer MEDICARE, BC, SELFPAY ==
[2022-05-09 17:46] LABS: Absolute Lymphocyte Count 1.97 X10^3/uL (0.83-4.51); Absolute Neutrophil Count 3.8 X10^3/uL (2.0-7.7); Basophil# 0.08 X10^3/uL; Basophil% 1.2 % (0-1); Eosinophil# 0.37 X10^3/uL; Eosinophils% 5.4 % (0-5); Hematocrit 39.3 % (37-47); Hemoglobin 13.5 g/dL (12.0-15.0); Lymphocyte # 1.97 X10^3/ul (0.83-4.51); Lymphocyte % 28.6 % (19-41); Mean Corp Hgb Conc 34.4 g/dL (32-36); Mean Corpuscular Hgb 31.3 pg (27.0-32.0); Mean Corpuscular Volume 91.2 fL (81-99); Mean Platelet Vol. 10.1 fl (6.2-12.0); Monocyte# 0.67 X10^3/uL; Monocyte% 9.7 % (0-10); NRBC Flagged by Analyzer 0 % (0-5); Neutrophil # 3.75 X10^3/uL (2.7-7.7); Neutrophil % 54.4 % (47-70); Platelet Count 304 K/mm3 (150-450); RBC Distribution Width CV 14.1 % (11.6-14.6); RBC Distribution Width SD 46.9 fl (35.1-43.9); Red Blood Count 4.31 M/mm3 (4.2-5.4); White Blood Count 6.9 K/mm3 (4.4-11.0)
[2022-05-09 18:00] LABS: ALB/GLOB Ratio 0.9 RATIO (0.9-2.4); AST(SGOT) 63 U/L (15-37); Alanine Aminotransfer ALT/SGPT 62 U/L (13-56); Albumin, Serum 3.5 g/dL (3.2-5.0); Alkaline Phosphatase 73 U/L (45-117); Anion Gap 7 (5-15); BUN 16 mg/dL (7-18); BUN/Creat Ratio 13.6 RATIO (10-20); Chloride 105 mmol/L (98-107); Creatinine, Serum 1.18 mg/dL (0.55-1.02); EST Glomerular Filtration Rate 47 mL/min (>60); Est Glom Filt Rate - Afr Amer 57 mL/min (>60); Globulin 3.7 g/dL (2.2-4.2); Glucose 96 mg/dL (74-106); Potassium 3.9 mmol/L (3.5-5.1); Protein, Total 7.2 g/dL (6.4-8.2); Sodium Level 140 mmol/L (136-145)
== END | disposition home or self-care (01) ==
LOC: MTLAB 15:51
PROVIDERS: PCP Internal Medicine; Referring Provider Internal Medicine Rheumatology; Visit Provider Internal Medicine Rheumatology
DX: M06.00 Rheumatoid arthritis without rheumatoid factor, unspecified site (principal); I50.9 Heart failure, unspecified; E11.9 Type 2 diabetes mellitus without complications; M65.352 Trigger finger, left little finger; M18.0 Bilateral primary osteoarthritis of first carpometacarpal joints; M17.0 Bilateral primary osteoarthritis of knee; K21.9 Gastro-esophageal reflux disease without esophagitis; M47.892 Other spondylosis, cervical region; G47.33 Obstructive sleep apnea (adult) (pediatric); M47.897 Other spondylosis, lumbosacral region; Z79.899 Other long term (current) drug therapy
CPT/HCPCS: 36415; 80053; 85025

== ENCOUNTER → 2022-06-07 | Outpatient (CLI) | payer MEDICARE, BC, SELFPAY ==
[2022-06-07 10:33] LABS: ALB/GLOB Ratio 0.9 RATIO (0.9-2.4); AST(SGOT) 25 U/L (15-37); Alanine Aminotransfer ALT/SGPT 23 U/L (13-56); Albumin, Serum 3.7 g/dL (3.2-5.0); Alkaline Phosphatase 92 U/L (45-117); Anion Gap 7 (5-15); BUN 13 mg/dL (7-18); BUN/Creat Ratio 13.3 RATIO (10-20); Calcium,Total 9.5 mg/dL (8.5-10.1); Chloride 104 mmol/L (98-107); Creatinine, Serum 0.98 mg/dL (0.55-1.02); EST Glomerular Filtration Rate 58 mL/min (>60); Est Glom Filt Rate - Afr Amer 71 mL/min (>60); Globulin 3.9 g/dL (2.2-4.2); Glucose 86 mg/dL (74-106); Potassium 4.1 mmol/L (3.5-5.1); Protein, Total 7.6 g/dL (6.4-8.2); Sodium Level 139 mmol/L (136-145)
== END | disposition home or self-care (01) ==
PROVIDERS: PCP Internal Medicine; Referring Provider Internal Medicine Rheumatology; Visit Provider Internal Medicine Rheumatology
DX: M06.00 Rheumatoid arthritis without rheumatoid factor, unspecified site (principal); I50.9 Heart failure, unspecified; E11.9 Type 2 diabetes mellitus without complications; M65.352 Trigger finger, left little finger; M18.0 Bilateral primary osteoarthritis of first carpometacarpal joints; M17.0 Bilateral primary osteoarthritis of knee; K21.9 Gastro-esophageal reflux disease without esophagitis; M47.892 Other spondylosis, cervical region; G47.33 Obstructive sleep apnea (adult) (pediatric); M47.897 Other spondylosis, lumbosacral region; Z79.899 Other long term (current) drug therapy
CPT/HCPCS: 36415; 80053

== ENCOUNTER → 2022-06-14 | Outpatient (CLI) | payer MEDICARE, BC, SELFPAY ==
--- NOTE | 2022-06-14 12:40 | MRI_ITS ---
STUDY: MRI ORBITS AND BRAIN WITH AND WITHOUT CONTRAST REASON FOR EXAM: Female, 77 years old. New visual field defect both eyes. TECHNIQUE: Standardized fat and water weighted pulse sequences were obtained in all 3 orthogonal planes, pre-and post contrast administration. IV CLARISCAN 19mL was administered for the contrast portion of the examination. COMPARISON: None. FINDINGS: Normal bilateral globes. Normal bilateral optic nerve sheath complexes and optic nerves. Normal bilateral intraconal and extraconal spaces. Normal bilateral extraocular muscles. Normal optic chiasm and post-chiasmatic tracts. Normal sella turcica, pituitary gland, infundibular stalk, and hypothalamus. Normal bilateral cavernous sinuses. Normal tectal plate and pineal gland. Normal flow voids within the major intracranial circulation suggesting patency by spin echo criteria. Normal size of the ventricles and extra-axial spaces for the patient''s age. Normal white matter tracts of the supratentorial brain. Normal bilateral basal ganglia. Normal thalami. There is no extra-axial fluid accumulation. Normal midbrain, carl and medulla. Normal cerebellum. Normal basal cisterns. MRI/Brain W/WO Contrast IMPRESSION: Normal enhanced and unenhanced MRI of the orbits and brain. Electronically Signed: Arash Smith MD at 16:57 EDT ,
== END | disposition home or self-care (01) ==
LOC: MRI 12:21
PROVIDERS: PCP Internal Medicine; Referring Provider Ophthalmology; Visit Provider Ophthalmology
DX: H53.15 Visual distortions of shape and size (principal)
CPT/HCPCS: 70553; A9575

== ENCOUNTER → 2022-08-05 | Outpatient (CLI) | payer MEDICARE, BC, SELFPAY ==
[2022-08-05 12:08] LABS: Absolute Lymphocyte Count 1.73 X10^3/uL (0.83-4.51); Basophil# 0.02 X10^3/uL; Basophil% 0.3 % (0-1); Eosinophil# 0.34 X10^3/uL; Eosinophils% 4.4 % (0-5); Hematocrit 38.7 % (37-47); Hemoglobin 12.6 g/dL (12.0-15.0); Lymphocyte # 1.73 X10^3/ul (0.83-4.51); Lymphocyte % 22.3 % (19-41); Mean Corp Hgb Conc 32.6 g/dL (32-36); Mean Corpuscular Hgb 30.1 pg (27.0-32.0); Mean Corpuscular Volume 92.6 fL (81-99); Mean Platelet Vol. 9.5 fl (6.2-12.0); Monocyte# 0.65 X10^3/uL; Monocyte% 8.4 % (0-10); NRBC Flagged by Analyzer 0 % (0-5); Neutrophil % 64.2 % (47-70); Platelet Count 323 K/mm3 (150-450); RBC Distribution Width CV 14.4 % (11.6-14.6); RBC Distribution Width SD 47.5 fl (35.1-43.9); Red Blood Count 4.18 M/mm3 (4.2-5.4); White Blood Count 7.8 K/mm3 (4.4-11.0)
[2022-08-05 12:24] LABS: ALB/GLOB Ratio 0.9 RATIO (0.9-2.4); AST(SGOT) 22 U/L (15-37); Alanine Aminotransfer ALT/SGPT 22 U/L (13-56); Albumin, Serum 3.5 g/dL (3.2-5.0); Alkaline Phosphatase 94 U/L (45-117); Anion Gap 7 (5-15); BUN 13 mg/dL (7-18); BUN/Creat Ratio 11.6 RATIO (10-20); Calcium,Total 9.5 mg/dL (8.5-10.1); Chloride 104 mmol/L (98-107); Creatinine, Serum 1.12 mg/dL (0.55-1.02); EST Glomerular Filtration Rate 50 mL/min (>60); Est Glom Filt Rate - Afr Amer 60 mL/min (>60); Globulin 3.8 g/dL (2.2-4.2); Glucose 91 mg/dL (74-106); Potassium 3.8 mmol/L (3.5-5.1); Protein, Total 7.3 g/dL (6.4-8.2); Sodium Level 141 mmol/L (136-145)
== END | disposition home or self-care (01) ==
PROVIDERS: PCP Internal Medicine; Referring Provider Internal Medicine Rheumatology; Visit Provider Internal Medicine Rheumatology
DX: M06.00 Rheumatoid arthritis without rheumatoid factor, unspecified site (principal); I50.9 Heart failure, unspecified; E11.9 Type 2 diabetes mellitus without complications; M65.352 Trigger finger, left little finger; M18.0 Bilateral primary osteoarthritis of first carpometacarpal joints; M17.0 Bilateral primary osteoarthritis of knee; K21.9 Gastro-esophageal reflux disease without esophagitis; M47.892 Other spondylosis, cervical region; G47.33 Obstructive sleep apnea (adult) (pediatric); M47.897 Other spondylosis, lumbosacral region; Z79.899 Other long term (current) drug therapy
CPT/HCPCS: 36415; 80053; 85025

== ENCOUNTER → 2022-10-28 | Outpatient (CLI) | payer MEDICARE, BC, SELFPAY ==
[2022-10-28 17:44] LABS: Absolute Lymphocyte Count 1.83 X10^3/uL (0.83-4.51); Absolute Neutrophil Count 4.2 X10^3/uL (2.0-7.7); Basophil# 0.05 X10^3/uL; Basophil% 0.7 % (0-1); Eosinophils% 4.3 % (0-5); Hemoglobin 12.9 g/dL (12.0-15.0); Lymphocyte # 1.83 X10^3/ul (0.83-4.51); Lymphocyte % 26.3 % (19-41); Mean Corp Hgb Conc 33.1 g/dL (32-36); Mean Corpuscular Hgb 30.4 pg (27.0-32.0); Mean Corpuscular Volume 91.8 fL (81-99); Mean Platelet Vol. 9.8 fl (6.2-12.0); Monocyte# 0.56 X10^3/uL; NRBC Flagged by Analyzer 0 % (0-5); Neutrophil # 4.21 X10^3/uL (2.7-7.7); Neutrophil % 60.4 % (47-70); Platelet Count 278 K/mm3 (150-450); RBC Distribution Width CV 14.5 % (11.6-14.6); Red Blood Count 4.25 M/mm3 (4.2-5.4)
[2022-10-28 18:46] LABS: ALB/GLOB Ratio 0.9 RATIO (0.9-2.4); AST(SGOT) 34 U/L (15-37); Alanine Aminotransfer ALT/SGPT 31 U/L (13-56); Albumin, Serum 3.6 g/dL (3.2-5.0); Alkaline Phosphatase 115 U/L (45-117); Anion Gap 7 (5-15); BUN 14 mg/dL (7-18); Calcium,Total 9.2 mg/dL (8.5-10.1); Chloride 105 mmol/L (98-107); Creatinine, Serum 1.08 mg/dL (0.55-1.02); EST Glomerular Filtration Rate 52 mL/min (>60); Est Glom Filt Rate - Afr Amer 63 mL/min (>60); Globulin 3.8 g/dL (2.2-4.2); Glucose 139 mg/dL (74-106); Potassium 3.8 mmol/L (3.5-5.1); Protein, Total 7.4 g/dL (6.4-8.2); Sodium Level 139 mmol/L (136-145)
== END | disposition home or self-care (01) ==
LOC: MTLAB 16:24
PROVIDERS: PCP Internal Medicine; Referring Provider Internal Medicine Rheumatology; Visit Provider Internal Medicine Rheumatology
DX: M06.00 Rheumatoid arthritis without rheumatoid factor, unspecified site (principal); Z79.899 Other long term (current) drug therapy
CPT/HCPCS: 36415; 80053; 85025

== ENCOUNTER 2022-11-08 15:56 | Emergency (ER) | payer MEDICARE, BC, SELFPAY ==
[2022-11-08 15:57] VITALS: BP 190/92; PULSE 102; RESP 18; TEMP 36.6; O2SAT 98; BMI 34.0
[2022-11-08 17:57] VITALS: BP 178/79; RESP 16; O2SAT 97
[2022-11-08 18:03] VITALS: BP 156/65
--- NOTE | 2022-11-08 18:15 | CT_ITS ---
EXAM: CT HEAD WITHOUT INTRAVENOUS CONTRAST CLINICAL INDICATION: headache, HTN TECHNIQUE: Multiple axial images were obtained of the head without intravenous contrast. This CT exam was performed using one or more of the following dose reduction techniques: automated exposure control, adjustment of the mA and/or kV according to patient size, and/or use of iterative reconstruction technique. This report was created using [employer] report generation technology. COMPARISON: 07/24/2015 FINDINGS: BRAIN AND EXTRA-AXIAL SPACES: Unremarkable. No intra- or extra-axial hemorrhage. No evidence of acute infarct. No intracranial mass or mass effect. There is preservation of the wellington/white matter interface. Posterior fossa structures are unremarkable. Ventricles are appropriate for age. No hydrocephalus. Basal cisterns are patent. BONES/JOINTS: Unremarkable. No discrete lytic or blastic abnormalities. SINUSES: Unremarkable as visualized. Clear. MASTOID AIR CELLS: Unremarkable. Clear. ORBITS: Visualized globes, extraocular muscles, optic nerves and retrobulbar fat appear unremarkable. CT/Brain/Head without Contrast IMPRESSION: Negative head/brain CT without intravenous contrast. Electronically Signed: Jersey Isaac MD at 19:26 EST ,
--- NOTE | 2022-11-08 18:32 | RAD_ITS ---
EXAM: XR CHEST, 1 VIEW CLINICAL INDICATION: cp TECHNIQUE: Frontal view of the chest. This report was created using [employer] report generation technology. COMPARISON: None. FINDINGS: LUNGS AND PLEURAL SPACES: Unremarkable. No consolidation or edema. No pneumothorax. No effusion. HEART: Unremarkable. Cardiac silhouette not enlarged. MEDIASTINUM: Central airways and mediastinal contour are unremarkable. BONES/JOINTS: Unremarkable. SOFT TISSUES: Unremarkable. RAD/Chest 1 View (Portable) IMPRESSION: No radiographic evidence of acute cardiopulmonary disease. Electronically Signed: Jersey Isaac MD at 18:47 [facility] ,
[2022-11-08 18:35] LABS: Absolute Lymphocyte Count 0.81 X10^3/uL (0.83-4.51); Absolute Neutrophil Count 8.2 X10^3/uL (2.0-7.7); Basophil# 0.02 X10^3/uL; Basophil% 0.2 % (0-1); Eosinophil# 0.01 X10^3/uL; Eosinophils% 0.1 % (0-5); Hematocrit 40.2 % (37-47); Hemoglobin 13.1 g/dL (12.0-15.0); Lymphocyte # 0.81 X10^3/ul (0.83-4.51); Lymphocyte % 8.4 % (19-41); Mean Corp Hgb Conc 32.6 g/dL (32-36); Mean Corpuscular Volume 92.2 fL (81-99); Mean Platelet Vol. 9.4 fl (6.2-12.0); Monocyte# 0.55 X10^3/uL; Monocyte% 5.7 % (0-10); NRBC Flagged by Analyzer 0 % (0-5); Neutrophil # 8.21 X10^3/uL (2.7-7.7); Neutrophil % 85.2 % (47-70); Platelet Count 323 K/mm3 (150-450); RBC Distribution Width CV 14.2 % (11.6-14.6); RBC Distribution Width SD 47.9 fl (35.1-43.9); Red Blood Count 4.36 M/mm3 (4.2-5.4); White Blood Count 9.6 K/mm3 (4.4-11.0)
[2022-11-08 19:00] LABS: Anion Gap 6 (5-15); BUN 23 mg/dL (7-18); BUN/Creat Ratio 18.7 RATIO (10-20); Calcium,Total 9.6 mg/dL (8.5-10.1); Chloride 106 mmol/L (98-107); Creatinine, Serum 1.23 mg/dL (0.55-1.02); EST Glomerular Filtration Rate 45 mL/min (>60); Est Glom Filt Rate - Afr Amer 54 mL/min (>60); Estimated Creatinine Clearance 34.72 ml/min; Glucose 170 mg/dL (74-106); Potassium 3.8 mmol/L (3.5-5.1); Sodium Level 141 mmol/L (136-145); Troponin-I HS 7 pg/mL (3.0-54.0)
[2022-11-08 19:34] LABS: Mucous, Urine 0 SEEN /hpf (<or=2+)
[2022-11-08 19:35] LABS: Color, Urine Yellow (Yellow); Glucose, Dipstick 250 mg/dl (Normal); Ketone-Dipstick Negative (Negative); Leukocyte Esterase-Dipstick 100 /ul (Negative); Nitrite-Dipstick Negative (Negative); Occult Blood-Urine 25 /ul (Negative); Protein-Dipstick 30 mg/dl (Negative); Specific Gravity, Urine 1.025 (1.002-1.030); Urine Bilirubin Dipstick Negative (Negative); Urine Clarity Clear (Clear); Urine Urobilinogen Normal (Normal)
[2022-11-08 19:46] LABS: Red Blood Cells-Urine 0-5 SEEN /hpf (0-5); Squamous Epithelial Cells - UA 0-5 SEEN /hpf (5-10); White Blood Cells 0-5 SEEN /hpf (0-5)
[2022-11-08 19:47] LABS: Bacteria RARE /hpf (None Seen)
--- NOTE | 2022-11-08 20:43 | EX.ED.DYSGE1 ---
HPI History of Present Illness Chief Complaint: Dizziness Informant: patient Onset/Context/Timing Onset: Today Narrative Narrative: Patient presents secondary to dizziness, hypertension, nosebleed. She states she does not feel right this morning but cannot really explain it. She had a heavy pressure sensation in her head. She had a nosebleed this afternoon that lasted about 8 minutes. She states she continues to have a slight pressure sensation in her head. She checked her blood pressure at home and has been quite elevated. She is on amlodipine 5 mg a day. She states she recently switched from taking this in the morning to bedtime. When she got this morning her systolic pressure was in the 160s which is not normal for her. [facility] Medical History Abdominal pain Abnormal mammogram of left breast Bowel obstruction Carpal tunnel syndrome CHF (congestive heart failure) CKD (chronic kidney disease) stage 3, GFR 30-59 ml/min Essential hypertension FH: total knee replacement GERD (gastroesophageal reflux disease) History of colon cancer Mixed hyperlipidemia REY on CPAP Polymyalgia rheumatica Rheumatoid arthritis Wrist fracture Home Medications folic acid 1 mg tablet 2 tab PO DAILY SUPPLEMENT 10/20/15 [History Last Taken 11/28/20 09:30 2 tab] fluoxetine 10 mg capsule 10 mg PO DAILY DEPRESSION 10/21/15 [History Last Taken 11/28/20 09:30 10 mg] cholecalciferol (vitamin D3) 50 mcg (2,000 unit) capsule 1,000 unit PO DAILY SUPPLEMENT 12/25/17 [History Last Taken 11/28/20 09:30 1000 u] aspirin 81 mg tablet,delayed release 81 mg PO DAILY heart health 12/24/19 [History Last Taken 11/28/20 09:30 81 mg] ascorbic acid (vitamin C) 500 mg capsule 500 mg PO DAILY Supplement 03/12/20 [History Last Taken 11/28/20 09:30 500 mg] atorvastatin 10 mg tablet 10 mg PO QHS cholesterol 11/28/20 [History Last Taken 11/28/20 09:30 10 mg] acetaminophen 500 mg tablet 500 mg PO Q6H PRN Pain 01/11/21 [History Last Taken Unknown] amlodipine 5 mg tablet 5 mg PO QHS 01/11/21 [History Last Taken Unknown] methotrexate sodium 2.5 mg tablet 15 mg PO DA SILVA RHEUMATOID 01/11/21 [History Last Taken Unknown] hydroxychloroquine 200 mg tablet 200 mg PO BID inflammation 04/13/21 [History Last Taken Unknown] furosemide 40 mg tablet 40 mg PO DAILY #90 tabs 07/05/21 [Rx Last Taken Unknown] potassium chloride 20 mEq tablet,extended release(part/cryst) 20 meq PO BIDCM #180 tabs 07/05/21 [Rx Last Taken Unknown] Allergy/AdvReac Type Severity Reaction Status Date / Time Penicillins [PCN] Allergy Rash Verified 09/18/22 13:03 Sulfa (Sulfonamide Allergy Rash Verified 09/18/22 13:03 Antibiotics) lisinopril AdvReac Unknown unknown Verified 09/18/22 13:03 azithromycin [From Zithromax] AdvReac Nausea/Vom/ Verified 09/18/22 13:03 Diarrhea codeine AdvReac Other Verified 09/18/22 13:03 hydrochlorothiazide AdvReac Rash Verified 09/18/22 13:03 nitroglycerin AdvReac Other Verified 09/18/22 13:03 [From Nitroglyn] Family History Sister Diabetes Asthma Hypertension Leukemia Brother Heart disease Hypertension Diabetes Father Myocardial infarction CAD (coronary artery disease) Mother Cancer Liver Hypertension Acute arthritis Surgical History History of appendectomy History of section History of colectomy (~2001) History of colonoscopy (~2015) History of hernia repair Social History Smoking Status: Former smoker alcohol intake: never substance use type: does not use caffeine: Yes Type: coffee Number of servings: 2 ROS ROS ED Constitutional Constitutional ED: Denies chills or fever(s) Eyes Eyes: Denies discharge from eye(s) ENT ENT ED: Reports other Details: Nosebleed ; Denies discharge from eye(s), rhinorrhea or sore throat Cardiovascular Cardiovascular: Denies chest pain or palpitations Respiratory/Chest Respiratory/Chest: Denies cough or dyspnea Gastrointestinal Gastrointestinal: Denies abdominal pain, nausea or vomiting Genitourinary Genitourinary ED: Denies dysuria Musculoskeletal Musculoskeletal: Denies back pain or extremity pain Integumentary Denies Abrasions or rash Neurologic Neurologic: Reports headache(s); Denies weakness Psychiatric Psychiatric: Denies anxiety or depression Endocrine Endocrinology: Denies polydipsia or polyuria Allergic/Immunologic Allergic/Immunologic ED: Denies lip swelling or urticaria EXAM Physical Exam Const Vital Signs: 11/08/22 15:57 11/08/22 17:57 11/08/22 18:03 Temperature 97.8 F Temperature Source Temporal Pulse Rate 102 H Respiratory Rate 18 16 Respiratory Effort Respiratory Pattern Blood Pressure 190/92 H 178/79 H 156/65 H Blood Pressure Mean 124 112 95 Pulse Ox 98 97 Oxygen Delivery Method Room Air Room Air 11/08/22 18:03 11/08/22 20:44 Temperature Temperature Source Pulse Rate 78 Respiratory Rate 15 Respiratory Effort Normal Non-Labored Respiratory Pattern Normal Blood Pressure 138/64 H Blood Pressure Mean Pulse Ox 99 Oxygen Delivery Method Positive well nourished and well developed General Appearance ED: well developed HEENT Reports normocephalic and head/scalp atraumatic Eyes PERRL and EOMs intact bilaterally Neck supple Chest Wall inspection of chest normal and palpation of chest normal Resp normal respiratory effort and clear to auscultation bilaterally Cardio regular rate and regular rhythm GI normal to inspection, nondistended, normoactive bowel sounds Palpation: soft Extremity normal to inspection Neuro oriented x3 and no sensory deficits noted Sensorium / Orientation: alert Motor Exam: strength 5/5 throughout Psych mental status grossly normal Skin no rashes or lesions noted MDM MDM MDM Narrative Medical decision making narrative: Patient placed on deck mate. CBC and chemistry studies obtained to evaluate for leukocytosis, anemia, electrolyte derangement. Urinalysis obtained to evaluate for proteinuria. Lab Data Attestation: I reviewed the patient's lab results. Labs: Laboratory Results - last 24 hr 11/08/22 11/08/22 11/08/22 18:26 18:26 19:28 WBC 9.6 RBC 4.36 Hgb 13.1 Hct 40.2 MCV 92.2 MCH 30.0 MCHC 32.6 RDW Std Deviation 47.9 H RDW Coeff of Unique 14.2 Plt Count 323 MPV 9.4 Immature Gran % (Auto) 0.400 Neut % (Auto) 85.2 H Lymph % (Auto) 8.4 L Howard % (Auto) 5.7 Eos % (Auto) 0.1 Baso % (Auto) 0.2 Absolute Neuts (auto) 8.2 H Absolute Lymphs (auto) 0.81 L Nucleated RBC % 0 Sodium 141 Potassium 3.8 Chloride 106 Carbon Dioxide 29.0 Anion Gap 6 BUN 23 H Creatinine 1.23 H Estim Creat Clear Calc 34.72 Est GFR (MDRD) Af Amer 54 L Est GFR (MDRD) Non-Af 45 L BUN/Creatinine Ratio 18.7 Glucose 170 H Calcium 9.6 Troponin I High Sens 7 Urine Color Yellow Urine Clarity Clear Urine pH 6.0 Ur Specific [place] 1.025 Urine Protein 30 H Urine Glucose (UA) 250 H Urine Ketones Negative Urine Occult Blood 25 H Urine Nitrite Negative Urine Bilirubin Negative Urine Urobilinogen Normal Ur Leukocyte Esterase 100 H Urine RBC 0-5 SEEN Urine WBC 0-5 SEEN Ur Squamous Epith Cells 0-5 SEEN Urine Bacteria RARE Urine Mucus 0 SEEN Radiography Chest X-Ray - ED: 1 View, Read by ED Physician, Normal, Heart, Lungs and Mediastinum Diagnostic Testing: Clinical Impression(s) from Imaging Studies Brain CT 11/08/22 18:15 IMPRESSION: Negative head/brain CT without intravenous contrast. Electronically Signed: Jersey Isaac MD at 19:26 EST , Chest X-Ray 11/08/22 18:32 IMPRESSION: No radiographic evidence of acute cardiopulmonary disease. Electronically Signed: Jersey Isaac MD at 18:47 EST , Treatment and Re-Evaluation Narrative: Patient has remained in sinus rhythm on the deck mate with normal heart rate. CBC and chemistry studies significant for a normal white count. Her chemistry studies are unremarkable with normal renal function. Urinalysis does show 30 protein. Chest x-ray per my interpretation reveals no evidence of cardiomegaly. Radiology interpretation is reviewed. Head CT obtained given her headache and high blood pressure. This is unremarkable. Patient's blood pressure was observed. Without being given any medications her blood pressure came down to 138/64 the time of discharge. We discussed switching her amlodipine back to a morning dose. She will keep a journal of her blood pressure readings at various times throughout the day along with any symptoms that she may be having. Return instructions are given. Discharge Plan Triage Chief Complaint: Dizziness ED Provider: Roseann Rehman Dx/Rx/DC Orders Clinical Impression: Hypertension Instructions: ED Hypertension, Established Prescriptions: No Action amlodipine 5 mg tablet 5 mg PO QHS acetaminophen 500 mg tablet 500 mg PO Q6H PRN (Reason: Pain) potassium chloride 20 mEq tablet,ER particles/crystals 20 meq PO BIDCM Qty: 180 3RF furosemide 40 mg tablet 40 mg PO DAILY Qty: 90 3RF folic acid 1 MG tablet 2 tab PO DAILY Label Comments: supplement fluoxetine 10 MG capsule 10 mg PO DAILY Label Comments: depression methotrexate sodium 2.5 mg tablet 15 mg PO DA SILVA cholecalciferol (vitamin D3) 2,000 UNIT capsule 1,000 unit PO DAILY aspirin 81 MG tablet,delayed release (DR/EC) 81 mg PO DAILY hydroxychloroquine 200 mg tablet 200 mg PO BID ascorbic acid (vitamin C) 500 MG capsule 500 mg PO DAILY atorvastatin 10 MG tablet 10 mg PO QHS Primary Care Provider: Jesus Ballard Referrals: Jesus Ballard MD [Primary Care Provider] - 1-2 Weeks Activity Restrictions/Additional Instructions: As discussed, please keep a journal of your blood pressure readings at various times of the day. Please also write down any symptoms she may be having. Disposition Disposition: Home, Self Care Discharge Date/Time: 11/08/22 20:51
[2022-11-08 20:44] VITALS: BP 138/64; PULSE 78; RESP 15; O2SAT 99
== END 2022-11-08 20:51 | disposition home or self-care (01) ==
PROVIDERS: Emergency Provider Emergency Medicine; PCP Internal Medicine; Visit Provider Emergency Medicine
DX: I13.0 Hypertensive heart and chronic kidney disease with heart failure and stage 1 through stage 4 chronic kidney disease, or unspecified chronic kidney disease (principal); I50.9 Heart failure, unspecified; N18.30 Chronic kidney disease, stage 3 unspecified; G47.33 Obstructive sleep apnea (adult) (pediatric); Z87.891 Personal history of nicotine dependence
CPT/HCPCS: 70450; 71045; 80048; 81001; 84484; 85025; 99284

== ENCOUNTER 2022-12-28 18:49 | Emergency (ER) | payer MEDICARE, BC, SELFPAY ==
[2022-12-28 18:50] VITALS: BP 152/70; PULSE 63; RESP 18; TEMP 36.4; O2SAT 98; BMI 34.7
--- NOTE | 2022-12-28 19:22 | RAD_ITS ---
STUDY: X-RAY - RIGHT SHOULDER REASON FOR EXAM: Female, 77 years old. FALL PAIN TECHNIQUE: 4 view(s) of the shoulder. COMPARISON: Right shoulder November 09, 2018 FINDINGS: Normal glenohumeral articulation. Normal acromioclavicular joint. Normal acromion. Normal humeral head and visualized proximal humerus. The soft tissue structures are unremarkable. Normal visualized pulmonary apex. RAD/Shoulder min 2 Views IMPRESSION: Mild degenerative changes stable. No acute fracture. Electronically Signed: Giuliano Linares MD at 19:49 EDT ,
--- NOTE | 2022-12-28 19:53 | EX.ED.UPPERE ---
HPI History of Present Illness Chief Complaint: Upper Extremity Injury Detail of Chief Complaint: Right shoulder injury Informant: patient Onset/Context/Timing Onset: Today Current Severity: Mild Maximum Severity: Moderate Narrative Narrative: Patient presents with fall and right shoulder injury. She states that she was speaking to her grandson and looking over her shoulder. She stepped up into her home but caught her toe and fell forward striking her right shoulder against the banister. She denies striking her head or loss of consciousness. She is right-hand dominant. [facility] Medical History Abdominal pain Abnormal mammogram of left breast Bowel obstruction Carpal tunnel syndrome CHF (congestive heart failure) CKD (chronic kidney disease) stage 3, GFR 30-59 ml/min Essential hypertension FH: total knee replacement GERD (gastroesophageal reflux disease) History of colon cancer Mixed hyperlipidemia REY on CPAP Polymyalgia rheumatica Rheumatoid arthritis Wrist fracture Home Medications folic acid 1 mg tablet 2 tab PO DAILY SUPPLEMENT 10/20/15 [History Last Taken 11/28/20 09:30 2 tab] fluoxetine 10 mg capsule 10 mg PO DAILY DEPRESSION 10/21/15 [History Last Taken 11/28/20 09:30 10 mg] cholecalciferol (vitamin D3) 50 mcg (2,000 unit) capsule 1,000 unit PO DAILY SUPPLEMENT 12/25/17 [History Last Taken 11/28/20 09:30 1000 u] aspirin 81 mg tablet,delayed release 81 mg PO DAILY heart health 12/24/19 [History Last Taken 11/28/20 09:30 81 mg] ascorbic acid (vitamin C) 500 mg capsule 500 mg PO DAILY Supplement 03/12/20 [History Last Taken 11/28/20 09:30 500 mg] atorvastatin 10 mg tablet 10 mg PO QHS cholesterol 11/28/20 [History Last Taken 11/28/20 09:30 10 mg] acetaminophen 500 mg tablet 500 mg PO Q6H PRN Pain 01/11/21 [History Last Taken Unknown] amlodipine 5 mg tablet 5 mg PO QHS 01/11/21 [History Last Taken Unknown] methotrexate sodium 2.5 mg tablet 15 mg PO DA SILVA RHEUMATOID 01/11/21 [History Last Taken Unknown] hydroxychloroquine 200 mg tablet 200 mg PO BID inflammation 04/13/21 [History Last Taken Unknown] furosemide 40 mg tablet 40 mg PO DAILY #90 tabs 07/05/21 [Rx Last Taken Unknown] potassium chloride 20 mEq tablet,extended release(part/cryst) 20 meq PO BIDCM #180 tabs 07/05/21 [Rx Last Taken Unknown] Allergy/AdvReac Type Severity Reaction Status Date / Time Penicillins [PCN] Allergy Rash Verified 12/28/22 18:52 Sulfa (Sulfonamide Allergy Rash Verified 12/28/22 18:52 Antibiotics) lisinopril AdvReac Unknown unknown Verified 12/28/22 18:52 azithromycin [From Zithromax] AdvReac Nausea/Vom/ Verified 12/28/22 18:52 Diarrhea codeine AdvReac Other Verified 12/28/22 18:52 hydrochlorothiazide AdvReac Rash Verified 12/28/22 18:52 nitroglycerin AdvReac Other Verified 12/28/22 18:52 [From Nitroglyn] Family History Sister Diabetes Asthma Hypertension Leukemia Brother Heart disease Hypertension Diabetes Father Myocardial infarction CAD (coronary artery disease) Mother Cancer Liver Hypertension Acute arthritis Surgical History History of appendectomy History of section History of colectomy (~2001) History of colonoscopy (~2015) History of hernia repair Social History Smoking Status: Former smoker alcohol intake: never substance use type: does not use caffeine: Yes Type: coffee Number of servings: 2 ROS ROS ED Constitutional Constitutional ED: Denies chills or fever(s) Eyes Eyes: Denies change in vision or discharge from eye(s) ENT ENT ED: Denies discharge from eye(s), rhinorrhea or sore throat Cardiovascular Cardiovascular: Denies chest pain or palpitations Respiratory/Chest Respiratory/Chest: Denies cough or dyspnea Gastrointestinal Gastrointestinal: Denies abdominal pain, diarrhea, nausea or vomiting Musculoskeletal Musculoskeletal: Reports extremity pain; Denies back pain Integumentary Denies Abrasions or rash Neurologic Neurologic: Denies headache(s) or weakness Allergic/Immunologic Allergic/Immunologic ED: Denies lip swelling or urticaria EXAM Physical Exam Const Vital Signs: 12/28/22 18:50 Temperature 97.5 F L Temperature Source Temporal Pulse Rate 63 Respiratory Rate 18 Blood Pressure 152/70 H Blood Pressure Mean 97 Pulse Ox 98 Oxygen Delivery Method Room Air Positive well nourished and well developed General Appearance ED: well developed HEENT Reports normocephalic and head/scalp atraumatic Eyes PERRL and EOMs intact bilaterally Neck supple Chest Wall inspection of chest normal and palpation of chest normal Resp normal respiratory effort and clear to auscultation bilaterally Cardio regular rate and regular rhythm GI normal to inspection, nondistended, normoactive bowel sounds Palpation: soft Extremity Extremity Narrative: Mild tenderness location along the right proximal humerus. No obvious deformity. No ecchymosis or abrasions. Increased pain with elevation of her right arm. No paresthesias with good cap refill distally. Neuro oriented x3 and no sensory deficits noted Sensorium / Orientation: alert Psych mental status grossly normal Skin no rashes or lesions noted MDM MDM MDM Narrative Medical decision making narrative: RemovePatient reports taking Tylenol prior to arrival. Right shoulder x-rays were obtained per nursing protocol. Per my review I see no evidence of fracture or dislocation. Radiology interpretation is reviewed and agrees. Test results discussed with the patient. She will be given a sling that she can wear when she is up and about, this when sitting at rest and will work on range of motion to ensure no frozen shoulder. Return instructions provided. Patient is comfortable with the plan. Radiography Diagnostic Testing: Clinical Impression(s) from Imaging Studies Shoulder X-Ray 12/28/22 19:22 IMPRESSION: Mild degenerative changes stable. No acute fracture. Electronically Signed: Giuliano Linares MD at 19:49 EDT , Discharge Plan Triage Chief Complaint: Upper Extremity Injury ED Provider: Roseann Rehman Dx/Rx/DC Orders Clinical Impression: Contusion of right shoulder Instructions: ED Shoulder Contusion Prescriptions: No Action amlodipine 5 mg tablet 5 mg PO QHS acetaminophen 500 mg tablet 500 mg PO Q6H PRN (Reason: Pain) potassium chloride 20 mEq tablet,ER particles/crystals 20 meq PO BIDCM Qty: 180 3RF furosemide 40 mg tablet 40 mg PO DAILY Qty: 90 3RF folic acid 1 MG tablet 2 tab PO DAILY Label Comments: supplement fluoxetine 10 MG capsule 10 mg PO DAILY Label Comments: depression methotrexate sodium 2.5 mg tablet 15 mg PO DA SILVA cholecalciferol (vitamin D3) 2,000 UNIT capsule 1,000 unit PO DAILY aspirin 81 MG tablet,delayed release (DR/EC) 81 mg PO DAILY hydroxychloroquine 200 mg tablet 200 mg PO BID ascorbic acid (vitamin C) 500 MG capsule 500 mg PO DAILY atorvastatin 10 MG tablet 10 mg PO QHS Primary Care Provider: Jesus Ballard Referrals: Jesus Ballard MD [Primary Care Provider] - 1 Week if not improving Disposition Disposition: Home, Self Care Discharge Date/Time: 12/28/22 20:38
== END 2022-12-28 20:38 | disposition home or self-care (01) ==
LOC: ED 20:01
PROVIDERS: Emergency Provider Emergency Medicine; PCP Internal Medicine; Visit Provider Emergency Medicine
DX: S40.011A Contusion of right shoulder, initial encounter (principal); I50.9 Heart failure, unspecified; N18.30 Chronic kidney disease, stage 3 unspecified; G47.33 Obstructive sleep apnea (adult) (pediatric); W19.XXXA Unspecified fall, initial encounter; Z87.891 Personal history of nicotine dependence
CPT/HCPCS: 73030; 99283

== ENCOUNTER → 2023-01-20 | Outpatient (CLI) | payer MEDICARE, BC, SELFPAY ==
[2023-01-20 12:17] LABS: Absolute Lymphocyte Count 1.75 X10^3/uL (0.83-4.51); Absolute Neutrophil Count 4.8 X10^3/uL (2.0-7.7); Basophil# 0.03 X10^3/uL; Basophil% 0.4 % (0-1); Eosinophil# 0.32 X10^3/uL; Eosinophils% 4.3 % (0-5); Hematocrit 39.3 % (37-47); Hemoglobin 12.4 g/dL (12.0-15.0); Lymphocyte # 1.75 X10^3/ul (0.83-4.51); Lymphocyte % 23.3 % (19-41); Mean Corp Hgb Conc 31.6 g/dL (32-36); Mean Corpuscular Volume 95.2 fL (81-99); Mean Platelet Vol. 9.8 fl (6.2-12.0); Monocyte# 0.57 X10^3/uL; Monocyte% 7.6 % (0-10); NRBC Flagged by Analyzer 0 % (0-5); Neutrophil # 4.81 X10^3/uL (2.7-7.7); Neutrophil % 64.1 % (47-70); Platelet Count 312 K/mm3 (150-450); RBC Distribution Width CV 15.3 % (11.6-14.6); RBC Distribution Width SD 52.8 fl (35.1-43.9); Red Blood Count 4.13 M/mm3 (4.2-5.4); White Blood Count 7.5 K/mm3 (4.4-11.0)
[2023-01-20 12:48] LABS: ALB/GLOB Ratio 0.9 RATIO (0.9-2.4); AST(SGOT) 24 U/L (15-37); Alanine Aminotransfer ALT/SGPT 20 U/L (13-56); Albumin, Serum 3.4 g/dL (3.2-5.0); Alkaline Phosphatase 97 U/L (45-117); Anion Gap 8 (5-15); BUN 18 mg/dL (7-18); BUN/Creat Ratio 16.2 RATIO (10-20); Calcium,Total 9.5 mg/dL (8.5-10.1); Chloride 103 mmol/L (98-107); Creatinine, Serum 1.11 mg/dL (0.55-1.02); EST Glomerular Filtration Rate 50 mL/min (>60); Est Glom Filt Rate - Afr Amer 61 mL/min (>60); Globulin 3.9 g/dL (2.2-4.2); Glucose 80 mg/dL (74-106); Potassium 4.1 mmol/L (3.5-5.1); Protein, Total 7.3 g/dL (6.4-8.2); Sodium Level 139 mmol/L (136-145)
== END | disposition home or self-care (01) ==
LOC: MTLAB 10:59
PROVIDERS: PCP Internal Medicine; Referring Provider Internal Medicine Rheumatology; Visit Provider Internal Medicine Rheumatology
DX: M06.00 Rheumatoid arthritis without rheumatoid factor, unspecified site (principal); Z79.899 Other long term (current) drug therapy
CPT/HCPCS: 36415; 80053; 85025

== ENCOUNTER → 2023-03-27 | Outpatient (CLI) | payer MEDICARE, BC, SELFPAY ==
[2023-03-27 10:05] LABS: Absolute Lymphocyte Count 1.61 X10^3/uL (0.83-4.51); Absolute Neutrophil Count 3.2 X10^3/uL (2.0-7.7); Basophil# 0.03 X10^3/uL; Basophil% 0.5 % (0-1); Eosinophil# 0.29 X10^3/uL; Eosinophils% 5.3 % (0-5); Hemoglobin 12.2 g/dL (12.0-15.0); Lymphocyte # 1.61 X10^3/ul (0.83-4.51); Lymphocyte % 29.3 % (19-41); Mean Corpuscular Hgb 30.7 pg (27.0-32.0); Mean Corpuscular Volume 93.2 fL (81-99); Mean Platelet Vol. 9.1 fl (6.2-12.0); Monocyte# 0.33 X10^3/uL; NRBC Flagged by Analyzer 0 % (0-5); Neutrophil # 3.23 X10^3/uL (2.7-7.7); Neutrophil % 58.7 % (47-70); Platelet Count 271 K/mm3 (150-450); RBC Distribution Width CV 13.5 % (11.6-14.6); RBC Distribution Width SD 45.6 fl (35.1-43.9); Red Blood Count 3.97 M/mm3 (4.2-5.4); White Blood Count 5.5 K/mm3 (4.4-11.0)
[2023-03-27 10:48] LABS: ALB/GLOB Ratio 0.9 RATIO (0.9-2.4); AST(SGOT) 25 U/L (15-37); Alanine Aminotransfer ALT/SGPT 21 U/L (13-56); Albumin, Serum 3.3 g/dL (3.2-5.0); Alkaline Phosphatase 92 U/L (45-117); Anion Gap 6 (5-15); BUN 20 mg/dL (7-18); BUN/Creat Ratio 17.9 RATIO (10-20); Calcium,Total 9.2 mg/dL (8.5-10.1); Chloride 104 mmol/L (98-107); Creatinine, Serum 1.12 mg/dL (0.55-1.02); EST Glomerular Filtration Rate 50 mL/min (>60); Est Glom Filt Rate - Afr Amer 60 mL/min (>60); Globulin 3.7 g/dL (2.2-4.2); Glucose 102 mg/dL (74-106); Sodium Level 139 mmol/L (136-145)
== END | disposition home or self-care (01) ==
LOC: MTLAB 08:48
PROVIDERS: PCP Internal Medicine; Referring Provider Internal Medicine Rheumatology; Visit Provider Internal Medicine Rheumatology
DX: M06.00 Rheumatoid arthritis without rheumatoid factor, unspecified site (principal); Z79.899 Other long term (current) drug therapy
CPT/HCPCS: 36415; 80053; 85025

== ENCOUNTER → 2023-06-20 | Outpatient (CLI) | payer MEDICARE, BC, SELFPAY ==
[2023-06-20 10:11] LABS: Absolute Lymphocyte Count 1.33 X10^3/uL (0.83-4.51); Basophil# 0.02 X10^3/uL; Basophil% 0.4 % (0-1); Eosinophil# 0.32 X10^3/uL; Eosinophils% 6.3 % (0-5); Hematocrit 36.2 % (37-47); Lymphocyte # 1.33 X10^3/ul (0.83-4.51); Mean Corp Hgb Conc 33.1 g/dL (32-36); Mean Corpuscular Hgb 30.5 pg (27.0-32.0); Mean Corpuscular Volume 91.9 fL (81-99); Mean Platelet Vol. 9.5 fl (6.2-12.0); Monocyte# 0.42 X10^3/uL; Monocyte% 8.2 % (0-10); NRBC Flagged by Analyzer 0 % (0-5); Neutrophil # 3.02 X10^3/uL (2.7-7.7); Neutrophil % 58.9 % (47-70); Platelet Count 245 K/mm3 (150-450); RBC Distribution Width CV 14.4 % (11.6-14.6); RBC Distribution Width SD 48.3 fl (35.1-43.9); Red Blood Count 3.94 M/mm3 (4.2-5.4); White Blood Count 5.1 K/mm3 (4.4-11.0)
[2023-06-20 10:24] LABS: ALB/GLOB Ratio 0.7 RATIO (0.9-2.4); AST(SGOT) 23 U/L (15-37); Alanine Aminotransfer ALT/SGPT 24 U/L (13-56); Albumin, Serum 2.8 g/dL (3.2-5.0); Alkaline Phosphatase 79 U/L (45-117); Anion Gap 10 (5-15); BUN 16 mg/dL (7-18); BUN/Creat Ratio 15.1 RATIO (10-20); Calcium,Total 7.2 mg/dL (8.5-10.1); Chloride 109 mmol/L (98-107); Creatinine, Serum 1.06 mg/dL (0.55-1.02); EST Glomerular Filtration Rate 53 mL/min (>60); Est Glom Filt Rate - Afr Amer 64 mL/min (>60); Globulin 4.2 g/dL (2.2-4.2); Glucose 77 mg/dL (74-106); Sodium Level 141 mmol/L (136-145)
== END | disposition home or self-care (01) ==
LOC: MTLAB 07:34
PROVIDERS: PCP Internal Medicine; Referring Provider Internal Medicine Rheumatology; Visit Provider Internal Medicine Rheumatology
DX: M06.00 Rheumatoid arthritis without rheumatoid factor, unspecified site (principal); Z79.899 Other long term (current) drug therapy
CPT/HCPCS: 36415; 80053; 85025

== ENCOUNTER 2023-08-29 21:26 | Inpatient (IN) | payer MEDICARE, BC, SELFPAY ==
[2023-08-29 21:27] VITALS: BP 137/61; PULSE 65; RESP 16; TEMP 36.4; O2SAT 98; BMI 34.2
--- NOTE | 2023-08-29 22:03 | EDS_ITS ---
HPI HPI - GI History of Present Illness Chief Complaint: Abd Pain Narrative Narrative: 78-year-old female past medical history of hypertension, previous bowel obstructions x 4, last being in September of this year, approximately 11 months ago. She presents with nausea and vomiting along with lower abdominal pain similar to her previous bowel obstructions. She states the last 2 times she had small bowel follow-through was performed and did not require surgery. She began having pain and nausea and vomiting today, and vomited at least 8 times without any blood in her emesis. She is passing a very small amount of gas. She presents because she feels like she is obstructed again. [facility] Medical History (Updated 08/30/23 @ 01:[address] Danny Lord MD) Abdominal pain Abnormal mammogram of left breast Bowel obstruction Carpal tunnel syndrome CHF (congestive heart failure) CKD (chronic kidney disease) stage 3, GFR 30-59 ml/min Essential hypertension FH: total knee replacement GERD (gastroesophageal reflux disease) History of colon cancer Mixed hyperlipidemia REY on CPAP Polymyalgia rheumatica Rheumatoid arthritis SBO (small bowel obstruction) Wrist fracture Home Medications folic acid 1 mg tablet 2 tab PO DAILY SUPPLEMENT 10/20/15 [History Last Taken 11/28/20 09:30 2 tab] fluoxetine 10 mg capsule 10 mg PO DAILY DEPRESSION 10/21/15 [History Last Taken 11/28/20 09:30 10 mg] cholecalciferol (vitamin D3) 50 mcg (2,000 unit) capsule 1,000 unit PO DAILY SUPPLEMENT 12/25/17 [History Last Taken 11/28/20 09:30 1000 u] aspirin 81 mg tablet,delayed release 81 mg PO DAILY heart health 12/24/19 [History Last Taken 11/28/20 09:30 81 mg] ascorbic acid (vitamin C) 500 mg capsule 500 mg PO DAILY Supplement 03/12/20 [History Last Taken 11/28/20 09:30 500 mg] atorvastatin 10 mg tablet 10 mg PO QHS cholesterol 11/28/20 [History Last Taken 11/28/20 09:30 10 mg] acetaminophen 500 mg tablet 500 mg PO Q6H PRN Pain 01/11/21 [History Last Taken Unknown] amlodipine 5 mg tablet 5 mg PO QHS 01/11/21 [History Last Taken Unknown] methotrexate sodium 2.5 mg tablet 15 mg PO DA SILVA RHEUMATOID 01/11/21 [History Last Taken Unknown] hydroxychloroquine 200 mg tablet 200 mg PO BID inflammation 04/13/21 [History Last Taken Unknown] furosemide 40 mg tablet 40 mg PO DAILY #90 tabs 07/05/21 [Rx Last Taken Unknown] potassium chloride 20 mEq tablet,extended release(part/cryst) 20 meq PO BIDCM #180 tabs 07/05/21 [Rx Last Taken Unknown] atenolol 25 mg tablet 25 mg PO QODAY 08/30/23 [History Last Taken Unknown] Allergy/AdvReac Type Severity Reaction Status Date / Time Penicillins [PCN] Allergy Rash Verified 08/29/23 21:27 Sulfa (Sulfonamide Allergy Rash Verified 08/29/23 21:27 Antibiotics) lisinopril AdvReac Unknown unknown Verified 08/29/23 21:27 azithromycin [From Zithromax] AdvReac Nausea/Vom/ Verified 08/29/23 21:27 Diarrhea codeine AdvReac Other Verified 08/29/23 21:27 hydrochlorothiazide AdvReac Rash Verified 08/29/23 21:27 nitroglycerin AdvReac Other Verified 08/29/23 21:27 [From Nitroglyn] Family History Sister Diabetes Asthma Hypertension Leukemia Brother Heart disease Hypertension Diabetes Father Myocardial infarction CAD (coronary artery disease) Mother Cancer Liver Hypertension Acute arthritis Surgical History History of appendectomy History of section History of colectomy (~2001) History of colonoscopy (~2015) History of hernia repair Social History Smoking Status: Former smoker alcohol intake: never substance use type: does not use caffeine: Yes Type: coffee Number of servings: 2 ROS ROS ED ROS Narrative Constitutional: No fever, no chills. HEENT: No sore throat. No neck pain. No loss of vision. No rhinorrhea. Cardiovascular: No chest pain. No palpitations. No pedal edema. Respiratory: No cough, no shortness of breath. Abdominal: Positive lower abdominal pain, 8 episodes of nausea and vomiting, nonbloody. No diarrhea. Genitourinary: No dysuria. No hematuria. Musculoskeletal: No myalgias. No arthralgias. Neurologic: No headaches. No dizziness. No lightheadedness. Skin: No rash. No change in color. Psychiatric: No depression. No anxiety. EXAM Physical Exam Narrative Exam Narrative: Afebrile. Vital signs noted. HEENT: Normocephalic. Atraumatic. PERRL, EOMI. Neck soft and supple. No point tenderness or step off. Cardiovascular: Regular rate and rhythm. No murmurs, rubs, or gallops appreciated. Respiratory: No tachypnea. Lungs clear to auscultation bilaterally. Gastrointestinal: Abdomen soft, diffuse tenderness to palpation with mild distention, decreased bowel sounds. No rebound or guarding. Neurological: Awake. Alert. Nonfocal, nonlateralizing. Skin: No rash. Normal color. No pallor. Musculoskeletal: No pedal edema. Full range of motion extremities. Const Vital Signs: 08/29/23 21:27 08/30/23 00:24 08/30/23 01:06 Temperature 97.6 F L 98.9 F 96 F L Temperature Source Temporal Pulse Rate 65 89 95 Respiratory Rate 16 20 H 18 Blood Pressure 137/61 H 157/99 H 147/71 H Blood Pressure Mean 86 118 96 Pulse Ox 98 99 Oxygen Delivery Method Room Air MDM MDM MDM Narrative Medical decision making narrative: Concern is for bowel obstruction versus partial bowel obstruction versus diverticulitis versus gastroenteritis. Initial protocol labs were entered. I do feel that she requires CT imaging. I reviewed her prior ED visits and laboratory work. Review of her laboratory work today shows normal white count of 8.5, hemoglobin 14.4, hematocrit 42.7, platelet count 281. Potassium is slightly low at 3.3 which I think is nonspecific, creatinine 1.13 consistent with her chronic kidney disease. AST and ALT are normal. Urinalysis is negative for infection. I reviewed the CT report and I received a call from the radiologist. Patient does have a small bowel obstruction but there is no discrete transition point. Initially, I discussed patient with Dr. Lord with general surgery who was going to defer to medicine. I then discussed patient with Dr. Kim, who wanted a lactic acid performed prior to admission. This is elevated at 2.8 which I think may be nonspecific. I repaged Dr. Lord who has come to see the patient. However, Dr. Kim has already discussed with her that she does not want surgery. She had told me this previously that she does not want surgery for bowel obstructions because she was told that there is a risk that the bowel could be ripped in the area of adhesion and cause leakage. After Dr. Lord's evaluation, he will admit her to his service. NG tube was placed. I did review the KUB for NG tube placement and tube appears in good position. I reviewed the radiology report which confirms my independent interpretation. Disposition is admit in stable condition. History & Record Review Discussion w/independent historian: Patient Additional record(s) reviewed:: Prior ED visit and Prior labs Lab Data Attestation: I reviewed the patient's lab results. Labs: Laboratory Results - last 24 hr 08/29/23 08/29/23 08/30/23 22:04 23:55 00:01 WBC 8.5 RBC 4.79 Hgb 14.4 Hct 42.7 MCV 89.1 MCH 30.1 MCHC 33.7 RDW Std Deviation 45.4 H RDW Coeff of Unique 14.2 Plt Count 281 MPV 9.2 Immature Gran % (Auto) 0.200 Neut % (Auto) 79.1 H Lymph % (Auto) 17.2 L [place] % (Auto) 2.6 Eos % (Auto) 0.5 Baso % (Auto) 0.4 Absolute Neuts (auto) 6.7 Absolute Lymphs (auto) 1.46 Nucleated RBC % 0 Sodium 139 Potassium 3.3 L Chloride 105 Carbon Dioxide 28.0 Anion Gap 6 BUN 15 Creatinine 1.13 H Estim Creat Clear Calc 37.17 Est GFR (MDRD) Af Amer 60 Est GFR (MDRD) Non-Af 49 L BUN/Creatinine Ratio 13.3 Glucose 138 H Lactic Acid 2.8 H* Calcium 9.8 Total Bilirubin 0.80 AST 21 ALT 18 Alkaline Phosphatase 99 Total Protein 7.7 Albumin 3.9 Globulin 3.8 Albumin/Globulin Ratio 1.0 Lipase 15 Urine Color Yellow Urine Clarity Clear Urine pH 5.0 Ur Specific [place] 1.015 Urine Protein 30 H Urine Glucose (UA) Normal Urine Ketones 5 H Urine Occult Blood 25 H Urine Nitrite Negative Urine Bilirubin Negative Urine Urobilinogen 1 H Ur Leukocyte Esterase 25 H Urine RBC 0 SEEN Urine WBC 0 SEEN Ur Squamous Epith Cells 0-5 SEEN Urine Bacteria 0 SEEN Urine Mucus 0 SEEN Radiography Diagnostic Testing: Clinical Impression(s) from Imaging Studies Abdomen/Pelvis CT 12/08/23 22:50 IMPRESSION: Small bowel obstruction. Colorectal anastomosis. Additional postoperative change. Electronically Signed: Arnav Gonzalez DO at 23:14 EST , ADDENDUM: 08/29/23 2327 IMPRESSION: Small bowel obstruction. Colorectal anastomosis. Additional postoperative change. N.B. : The above Results were Read Back by Arnav Gonzalez DO to Arash Miller MD, and understanding confirmed on 08/29/2023 23:19:19 (ET). Electronically Signed: Arnav Gonzalez DO at 23:14 EST , KUB X-Ray 08/29/23 23:45 IMPRESSION: Adequately positioned enteric tube. Electronically Signed: Mariah Guardado MD at 0:56 EST , Discharge Plan Dx/Rx/DC Orders Clinical Impression: Small bowel obstruction, Essential hypertension, History of colon cancer Disposition Disposition: Acute Care Hospital [facility]
[2023-08-29] MEDS: Ondansetron 4 MG/2 ML Vial IV (22:09)
[2023-08-29] MEDS: 0.9% Normal Saline (1000mL) 1,000 ML 1000 ML IV (22:09)
[2023-08-29] MEDS: Morphine 4 MG/ML Syringe IV (22:09)
[2023-08-29 22:10] LABS: Absolute Lymphocyte Count 1.46 X10^3/uL (0.83-4.51); Absolute Neutrophil Count 6.7 X10^3/uL (2.0-7.7); Basophil# 0.03 X10^3/uL; Basophil% 0.4 % (0-1); Eosinophil# 0.04 X10^3/uL; Eosinophils% 0.5 % (0-5); Hematocrit 42.7 % (37-47); Hemoglobin 14.4 g/dL (12.0-15.0); Lymphocyte # 1.46 X10^3/ul (0.83-4.51); Lymphocyte % 17.2 % (19-41); Mean Corp Hgb Conc 33.7 g/dL (32-36); Mean Corpuscular Hgb 30.1 pg (27.0-32.0); Mean Corpuscular Volume 89.1 fL (81-99); Mean Platelet Vol. 9.2 fl (6.2-12.0); Monocyte# 0.22 X10^3/uL; Monocyte% 2.6 % (0-10); NRBC Flagged by Analyzer 0 % (0-5); Neutrophil % 79.1 % (47-70); Platelet Count 281 K/mm3 (150-450); RBC Distribution Width CV 14.2 % (11.6-14.6); RBC Distribution Width SD 45.4 fl (35.1-43.9); Red Blood Count 4.79 M/mm3 (4.2-5.4); White Blood Count 8.5 K/mm3 (4.4-11.0)
[2023-08-29 22:28] LABS: AST(SGOT) 21 U/L (15-37); Alanine Aminotransfer ALT/SGPT 18 U/L (13-56); Albumin, Serum 3.9 g/dL (3.2-5.0); Alkaline Phosphatase 99 U/L (45-117); Anion Gap 6 (5-15); BUN 15 mg/dL (7-18); BUN/Creat Ratio 13.3 RATIO (10-20); Calcium,Total 9.8 mg/dL (8.5-10.1); Chloride 105 mmol/L (98-107); Creatinine, Serum 1.13 mg/dL (0.55-1.02); EST Glomerular Filtration Rate 49 mL/min (>60); Est Glom Filt Rate - Afr Amer 60 mL/min (>60); Estimated Creatinine Clearance 37.17 ml/min; Globulin 3.8 g/dL (2.2-4.2); Glucose 138 mg/dL (74-106); Lipase 15 U/L (13-75); Potassium 3.3 mmol/L (3.5-5.1); Protein, Total 7.7 g/dL (6.4-8.2); Sodium Level 139 mmol/L (136-145)
--- NOTE | 2023-08-29 22:50 | CT_ITS ---
We are attempting to reach an attending provider to discuss findings. An addendum with communication details will be sent when the communication is complete. EXAM: CT ABDOMEN AND PELVIS WITH INTRAVENOUS CONTRAST CLINICAL INDICATION: PAIN TECHNIQUE: Helically acquired images were obtained of the abdomen and pelvis with intravenous contrast. This CT exam was performed using one or more of the following dose reduction techniques: automated exposure control, adjustment of the mA and/or kV according to patient size, and/or use of iterative reconstruction technique. CONTRAST: IV 75mL [id number]-300 COMPARISON: CT abdomen and pelvis, 05/05/2022 FINDINGS: LOWER THORAX: Coronary artery calcifications. Lung bases are clear. No cardiomegaly. No significant pericardial effusion. ABDOMEN: LIVER: No significant abnormality. Homogeneous. No focal mass. GALLBLADDER AND BILE DUCTS: No significant abnormality. No calcified gallstones. No gallbladder distention or wall edema. No intra- or extrahepatic biliary ductal dilation. PANCREAS: No significant abnormality. No focal cystic or solid mass. SPLEEN: No significant abnormality. Normal size without focal cystic or solid mass. ADRENALS: No significant abnormality. No nodules. KIDNEYS AND URETERS: No significant abnormality. Normal renal size and position. No hydronephrosis. STOMACH AND BOWEL: Moderate fluid-filled distended small bowel loops with small air-fluid levels are present. No discrete transition point. Colorectal anastomosis. PELVIS: APPENDIX: No evidence of acute appendicitis. BLADDER: No significant abnormality. REPRODUCTIVE: Normal as visualized. No mass. ABDOMEN and PELVIS: INTRAPERITONEAL SPACE: No significant abnormality. No free air. No abscess or large volume free fluid is present. BONES/JOINTS: Right hip arthroplasty. Degenerative changes of the spine and left hip. No suspicious lytic or blastic abnormality. SOFT TISSUES: Mesenteric edema. Mesh hernia repair of the ventral abdominal wall. VASCULATURE: Atherosclerosis of the aorta and its branch vessels. LYMPH NODES: No significant abnormality. No enlarged lymph nodes. CT/Abdomen/Pelvis W IV Cont ONLY IMPRESSION: Small bowel obstruction. Colorectal anastomosis. Additional postoperative change. Electronically Signed: Arnav Gonzalez DO at 23:14 EST ,
[2023-08-29] MEDS: Oxymetazoline 0.05% 1 SPRAY SPRAY.BTL 2 SPRAY NASAL (23:42)
--- NOTE | 2023-08-29 23:45 | RAD_ITS ---
EXAM: XR ABDOMEN, 1 VIEW CLINICAL INDICATION: ng tube placement -- KUB with both diaphragms for NG/OG Verification TECHNIQUE: Frontal supine view of the abdomen/pelvis. COMPARISON: CT today, with large ventral hernia repair sheath and small bowel obstruction is FINDINGS: TECHNIQUE: The exam is centered over the lung bases and upper abdomen. The abdomen is not fully included. FINDINGS: There is mild contrast in the collecting system of the kidneys, patient had an enhanced CT earlier. No free intraperitoneal air on portable reportedly upright exam. TUBES, LINES AND DEVICES: Enteric tube tip in the proximal body of the stomach, estimated to be 13.5 cm distal to the expected region of the GE junction, to the left of midline. RAD/Abdomen Single View (Portable) IMPRESSION: Adequately positioned enteric tube. Electronically Signed: Mariah Guardado MD at 0:56 EST ,
--- NOTE | 2023-08-29 23:51 | PCM.HP.STD ---
[facility] - General General Date of Service: 08/29/23 HPI Narrative FABIO PORTILLO, is a 78 F who presents History of hypertension, previous bowel obstructions presents with abdominal pain with nausea vomiting and pain along the lower abdominal quadrant. CT abdomen was done which showed moderate fluid-filled distended small bowel loops with small air-fluid levels, no discrete transition point was seen. Previously admitted on 05/05/2022 with similar symptoms Low anterior resection for rectal cancer stage I in 2001, laparoscopic ventral hernia repair in 2016 with history of recurrent small bowel obstruction since September 2021. She was previously recommended low residue low fiber diet, but patient has only been intermittently following the advice. PENDING SALE TO [facility] Medical History Abdominal pain Abnormal mammogram of left breast Bowel obstruction Carpal tunnel syndrome CHF (congestive heart failure) CKD (chronic kidney disease) stage 3, GFR 30-59 ml/min Essential hypertension FH: total knee replacement GERD (gastroesophageal reflux disease) History of colon cancer Mixed hyperlipidemia REY on CPAP Polymyalgia rheumatica Rheumatoid arthritis Wrist fracture Home Medications folic acid 1 mg tablet 2 tab PO DAILY SUPPLEMENT 10/20/15 [History Last Taken 11/28/20 09:30 2 tab] fluoxetine 10 mg capsule 10 mg PO DAILY DEPRESSION 10/21/15 [History Last Taken 11/28/20 09:30 10 mg] cholecalciferol (vitamin D3) 50 mcg (2,000 unit) capsule 1,000 unit PO DAILY SUPPLEMENT 12/25/17 [History Last Taken 11/28/20 09:30 1000 u] aspirin 81 mg tablet,delayed release 81 mg PO DAILY heart health 12/24/19 [History Last Taken 11/28/20 09:30 81 mg] ascorbic acid (vitamin C) 500 mg capsule 500 mg PO DAILY Supplement 03/12/20 [History Last Taken 11/28/20 09:30 500 mg] atorvastatin 10 mg tablet 10 mg PO QHS cholesterol 11/28/20 [History Last Taken 11/28/20 09:30 10 mg] acetaminophen 500 mg tablet 500 mg PO Q6H PRN Pain 01/11/21 [History Last Taken Unknown] amlodipine 5 mg tablet 5 mg PO QHS 01/11/21 [History Last Taken Unknown] methotrexate sodium 2.5 mg tablet 15 mg PO DA SILVA RHEUMATOID 01/11/21 [History Last Taken Unknown] hydroxychloroquine 200 mg tablet 200 mg PO BID inflammation 04/13/21 [History Last Taken Unknown] furosemide 40 mg tablet 40 mg PO DAILY #90 tabs 07/05/21 [Rx Last Taken Unknown] potassium chloride 20 mEq tablet,extended release(part/cryst) 20 meq PO BIDCM #180 tabs 07/05/21 [Rx Last Taken Unknown] atenolol 25 mg tablet 25 mg PO QODAY 08/30/23 [History Last Taken Unknown] Allergy/AdvReac Type Severity Reaction Status Date / Time Penicillins [PCN] Allergy Rash Verified 08/29/23 21:27 Sulfa (Sulfonamide Allergy Rash Verified 08/29/23 21:27 Antibiotics) lisinopril AdvReac Unknown unknown Verified 08/29/23 21:27 azithromycin [From Zithromax] AdvReac Nausea/Vom/ Verified 08/29/23 21:27 Diarrhea codeine AdvReac Other Verified 08/29/23 21:27 hydrochlorothiazide AdvReac Rash Verified 08/29/23 21:27 nitroglycerin AdvReac Other Verified 08/29/23 21:27 [From Nitroglyn] Family History Sister Diabetes Asthma Hypertension Leukemia Brother Heart disease Hypertension Diabetes Father Myocardial infarction CAD (coronary artery disease) Mother Cancer Liver Hypertension Acute arthritis Surgical History History of appendectomy History of section History of colectomy (~2001) History of colonoscopy (~2015) History of hernia repair Social History Smoking Status: Former smoker alcohol intake: never substance use type: does not use caffeine: Yes Type: coffee Number of servings: 2 Vital Signs Vital Signs Vital Signs: 08/29/23 21:27 Temperature 97.6 F L Temperature Source Temporal Pulse Rate 65 Respiratory Rate 16 Blood Pressure 137/61 H Blood Pressure Mean 86 Pulse Ox 98 Oxygen Delivery Method Room Air Weight Weight: 212 lb 6.4 oz Body Mass Index (BMI) 34.2 Results Lab / Micro Data 08/29/23 22:04 08/29/23 22:04 Labs: Laboratory Results - last 24 hr 08/29/23 22:04: WBC 8.5, RBC 4.79, Hgb 14.4, Hct 42.7, MCV 89.1, MCH 30.1, MCHC 33.7, RDW Std Deviation 45.4 H, RDW Coeff of Unique 14.2, Plt Count 281, MPV 9.2, Immature Gran % (Auto) 0.200, Neut % (Auto) 79.1 H, Lymph % (Auto) 17.2 L, [place] % (Auto) 2.6, Eos % (Auto) 0.5, Baso % (Auto) 0.4, Absolute Neuts (auto) 6.7, Absolute Lymphs (auto) 1.46, Nucleated RBC % 0, Sodium 139, Potassium 3.3 L, Chloride 105, Carbon Dioxide 28.0, Anion Gap 6, BUN 15, Creatinine 1.13 H, Estim Creat Clear Calc 37.17, Est GFR (MDRD) Af Amer 60, Est GFR (MDRD) Non-Af 49 L, BUN/Creatinine Ratio 13.3, Glucose 138 H, Calcium 9.8, Total Bilirubin 0.80, AST 21, ALT 18, Alkaline Phosphatase 99, Total Protein 7.7, Albumin 3.9, Globulin 3.8, Albumin/Globulin Ratio 1.0, Lipase 15 Imagaing Radiology Impression Abdomen/Pelvis CT 08/29/23 22:50 IMPRESSION: Small bowel obstruction. Colorectal anastomosis. Additional postoperative change. Electronically Signed: Arnav Gonzalez DO at 23:14 EST , ADDENDUM: 08/29/23 2327 IMPRESSION: Small bowel obstruction. Colorectal anastomosis. Additional postoperative change. N.B. : The above Results were Read Back by Arnav Gonzalez DO to Arash Miller MD, and understanding confirmed on 08/29/2023 23:19:19 (ET). Electronically Signed: Arnav Gonzalez DO at 23:14 EST ,
[2023-08-30 00:08] LABS: Bacteria 0 SEEN /hpf (None Seen); Mucous, Urine 0 SEEN /hpf (<or=2+); Red Blood Cells-Urine 0 SEEN /hpf (0-5); White Blood Cells 0 SEEN /hpf (0-5)
[2023-08-30 00:17] LABS: Color, Urine Yellow (Yellow); Glucose, Dipstick Normal (Normal); Ketone-Dipstick 5 mg/dl (Negative); Leukocyte Esterase-Dipstick 25 /ul (Negative); Nitrite-Dipstick Negative (Negative); Occult Blood-Urine 25 /ul (Negative); Protein-Dipstick 30 mg/dl (Negative); Specific Gravity, Urine 1.015 (1.002-1.030); Urine Bilirubin Dipstick Negative (Negative); Urine Clarity Clear (Clear); Urine Urobilinogen 1 mg/dl (Normal)
[2023-08-30 00:22] LABS: Squamous Epithelial Cells - UA 0-5 SEEN /hpf (5-10)
[2023-08-30 00:24] VITALS: BP 157/99; PULSE 89; RESP 20; TEMP 37.2; O2SAT 99
[2023-08-30 00:36] LABS: Lactic Acid 2.8 mmol/L (0.4-1.9)
[2023-08-30 01:06] VITALS: BP 147/71; PULSE 95; RESP 18; TEMP 35.5
--- NOTE | 2023-08-30 01:31 | HP.PCM_ITS ---
[facility] - General General Date of Admission: 08/29/23 Date of Service: 08/30/23 Chief Complaint: Acute onset abdominal pain with associated nausea and vomiting HPI Narrative FABIO PORTILLO, is a 78 F, with a past history of CHF, CKD, GERD, rheumatoid arthritis, hypertension, hyperlipidemia, obstructive sleep apnea, and colon cancer, who presents with approximately 24 hours of acute onset abdominal pain associated with nausea and vomiting. She has a prior history of recurrent small bowel obstructions with her last notable obstruction, in April 2022 and she believed this was likely another obstruction so she decided to present for further evaluation. ER workup is notable for some mild hypokalemia and a mildly elevated lactic acidosis. CT imaging of the abdomen pelvis was performed showing evidence of a small bowel obstruction with air-fluid levels. Patient has past medical history inclusive of a appendectomy, multiple sections, segmental colectomy with ileocolic anastomosis, and a extensive ventral hernia repair with mesh with Dr. Montero. Incidentally I cared for patient during a recurrent obstruction episode September 2021 and patient confirms that she has had no further obstructive events besides those that have been cared for here at [facility]. She relates a conversation with Dr. Betts that any surgical intervention for this issue would likely be fairly involved and Ms. Portillo expressly confirms her wish to avoid surgery. [facility] Medical History (Updated 08/30/23 @ 01:[address] Danny Lord MD) Abdominal pain Abnormal mammogram of left breast Bowel obstruction Carpal tunnel syndrome CHF (congestive heart failure) CKD (chronic kidney disease) stage 3, GFR 30-59 ml/min Essential hypertension FH: total knee replacement GERD (gastroesophageal reflux disease) History of colon cancer Mixed hyperlipidemia REY on CPAP Polymyalgia rheumatica Rheumatoid arthritis SBO (small bowel obstruction) Wrist fracture Home Medications folic acid 1 mg tablet 2 tab PO DAILY SUPPLEMENT 10/20/15 [History Last Taken 11/28/20 09:30 2 tab] fluoxetine 10 mg capsule 10 mg PO DAILY DEPRESSION 10/21/15 [History Last Taken 11/28/20 09:30 10 mg] cholecalciferol (vitamin D3) 50 mcg (2,000 unit) capsule 1,000 unit PO DAILY SUPPLEMENT 12/25/17 [History Last Taken 11/28/20 09:30 1000 u] aspirin 81 mg tablet,delayed release 81 mg PO DAILY [facility] 12/24/19 [History Last Taken 11/28/20 09:30 81 mg] ascorbic acid (vitamin C) 500 mg capsule 500 mg PO DAILY Supplement 03/12/20 [History Last Taken 11/28/20 09:30 500 mg] atorvastatin 10 mg tablet 10 mg PO QHS cholesterol 11/28/20 [History Last Taken 11/28/20 09:30 10 mg] acetaminophen 500 mg tablet 500 mg PO Q6H PRN Pain 01/11/21 [History Last Taken Unknown] amlodipine 5 mg tablet 5 mg PO QHS 01/11/21 [History Last Taken Unknown] methotrexate sodium 2.5 mg tablet 15 mg PO DA SILVA RHEUMATOID 01/11/21 [History Last Taken Unknown] hydroxychloroquine 200 mg tablet 200 mg PO BID inflammation 04/13/21 [History Last Taken Unknown] furosemide 40 mg tablet 40 mg PO DAILY #90 tabs 07/05/21 [Rx Last Taken Unknown] potassium chloride 20 mEq tablet,extended release(part/cryst) 20 meq PO BIDCM #180 tabs 07/05/21 [Rx Last Taken Unknown] atenolol 25 mg tablet 25 mg PO QODAY 08/30/23 [History Last Taken Unknown] Allergy/AdvReac Type Severity Reaction Status Date / Time Penicillins [PCN] Allergy Rash Verified 08/29/23 21:27 Sulfa (Sulfonamide Allergy Rash Verified 08/29/23 21:27 Antibiotics) lisinopril AdvReac Unknown unknown Verified 08/29/23 21:27 azithromycin [From Zithromax] AdvReac Nausea/Vom/ Verified 08/29/23 21:27 Diarrhea codeine AdvReac Other Verified 08/29/23 21:27 hydrochlorothiazide AdvReac Rash Verified 08/29/23 21:27 nitroglycerin AdvReac Other Verified 08/29/23 21:27 [From Nitroglyn] Family History Sister Diabetes Asthma Hypertension Leukemia Brother Heart disease Hypertension Diabetes Father Myocardial infarction CAD (coronary artery disease) Mother Cancer Liver Hypertension Acute arthritis Surgical History History of appendectomy History of section History of colectomy (~2001) History of colonoscopy (~2015) History of hernia repair Social History Smoking Status: Former smoker alcohol intake: never substance use type: does not use caffeine: Yes Type: coffee Number of servings: 2 Vital Signs Vital Signs Vital Signs: 08/29/23 21:27 08/30/23 00:24 08/30/23 01:06 Temperature 97.6 F L 98.9 F 96 F L Temperature Source Temporal Pulse Rate 65 89 95 Respiratory Rate 16 20 H 18 Blood Pressure 137/61 H 157/99 H 147/71 H Blood Pressure Mean 86 118 96 Pulse Ox 98 99 Oxygen Delivery Method Room Air Weight Weight: 212 lb 6.4 oz Body Mass Index (BMI) 34.2 Physical Exam Const alert Constitutional Narrative: Cooperative but fatigued and wanting simply to rest HEENT HEENT Narrative: Nasogastric tube placed to right nare Resp normal respiratory effort GI Inspection: abdominal distention, scar and other Other Details: Well-healed midline laparotomy incision Palpation: tender LUQ and RUQ Results Lab / Micro Data 08/29/23 22:04 08/29/23 22:04 Labs: Laboratory Results - last 24 hr 08/29/23 22:04: WBC 8.5, RBC 4.79, Hgb 14.4, Hct 42.7, MCV 89.1, MCH 30.1, MCHC 33.7, RDW Std Deviation 45.4 H, RDW Coeff of Unique 14.2, Plt Count 281, MPV 9.2, Immature Gran % (Auto) 0.200, Neut % (Auto) 79.1 H, Lymph % (Auto) 17.2 L, [place] % (Auto) 2.6, Eos % (Auto) 0.5, Baso % (Auto) 0.4, Absolute Neuts (auto) 6.7, Absolute Lymphs (auto) 1.46, Nucleated RBC % 0, Sodium 139, Potassium 3.3 L, Chloride 105, Carbon Dioxide 28.0, Anion Gap 6, BUN 15, Creatinine 1.13 H, Estim Creat Clear Calc 37.17, Est GFR (MDRD) Af Amer 60, Est GFR (MDRD) Non-Af 49 L, BUN/Creatinine Ratio 13.3, Glucose 138 H, Calcium 9.8, Total Bilirubin 0.80, AST 21, ALT 18, Alkaline Phosphatase 99, Total Protein 7.7, Albumin 3.9, Globulin 3.8, Albumin/Globulin Ratio 1.0, Lipase 15 08/29/23 23:55: Lactic Acid 2.8 H* 08/30/23 00:01: Urine Color Yellow, Urine Clarity Clear, Urine pH 5.0, Ur Specific [place] 1.015, Urine Protein 30 H, Urine Glucose (UA) Normal, Urine Ketones 5 H, Urine Occult Blood 25 H, Urine Nitrite Negative, Urine Bilirubin Negative, Urine Urobilinogen 1 H, Ur Leukocyte Esterase 25 H, Urine RBC 0 SEEN, Urine WBC 0 SEEN, Ur Squamous Epith Cells 0-5 SEEN, Urine Bacteria 0 SEEN, Urine Mucus 0 SEEN Imagaing Radiology Impression Abdomen/Pelvis CT 08/29/23 22:50 IMPRESSION: Small bowel obstruction. Colorectal anastomosis. Additional postoperative change. Electronically Signed: Arnav Gonzalez DO at 23:14 EST , ADDENDUM: 08/29/237 IMPRESSION: Small bowel obstruction. Colorectal anastomosis. Additional postoperative change. N.B. : The above Results were Read Back by Arnav Gonzalez DO to Arash Miller MD, and understanding confirmed on 08/29/2023 23:19:19 (ET). Electronically Signed: Arnav Gonzalez DO at 23:14 EST , KUB X-Ray 08/29/23 23:45 IMPRESSION: Adequately positioned enteric tube. Electronically Signed: Mariah Guardado MD at 0:56 EST , Assessment & Plan Assessment/Plan (1) Small bowel obstruction: PLAN: This is an 78-year-old female with a moderately complex past medical and past surgical history?with the former inclusive of recurrent small bowel obstructions likely owing to history of prior ventral hernia repair with mesh?specifically. She estimates that she has had some 4-5 prior obstructions and confirms that all prior events have resolved with conservative measures. Incidentally, I cared for patient during her next most recent event and can confirm this fact. Overall, her clinical picture appears similar to that of her prior presentations and I believe her elevated lactic acid is simply due to relative dehydration as she is nearly 24 hours into her symptoms with insufficient fluid intake. In my independent review of patient's CT imaging I do believe patient has a transition zone on the right side of her abdominal cavity adjacent to her mesh about the level of her umbilicus. Here there appears to be some thickened small bowel that transitions to normal?caliber bowel. Yet, I also agree with information that patient states was shared to her by Dr. Betts during her prior obstruction event that surgery could become rather involved if a significant portion of her small bowel is stuck to the mesh from her prior hernia repair as it is suggested by her CT imaging. Because of this conversation, Ms. Portillo states that she is disinclined toward surgery and wishes to pursue conservative measures. Given her age, comorbidities, and the likely veracity of this statement I find this reasonable. Nasogastric tube has been placed by emergency medicine and appears to be in good position. It initially was not suctioning well, but after some troubleshooting it now appears to be suctioning and patient is again receiving relief of her symptoms. I will plan to follow-up with patient later today and initiate a small bowel follow- through. Will continue serial abdominal exams. Recommend trending lactic acid and use careful resuscitation with her history of congestive heart failure. Hospitalist service has been consulted for assistance with this issue and her other comorbidities during this inpatient stay. Charges/Coding Visit Charges Inpatient E&M: 60639 Init Hosp L2
[2023-08-30 02:35] VITALS: BMI 33.5
[2023-08-30 02:40] VITALS: BP 136/59; PULSE 98; RESP 16; TEMP 36.9; O2SAT 95
[2023-08-30] MEDS: 0.9% Normal Saline (1000mL) 1,000 ML 125 ML IV ×3 (02:49→21:41)
[2023-08-30 03:58] LABS: Reflex Lactate? Y
[2023-08-30 04:47] LABS: Lactic Acid 1.4 mmol/L (0.4-1.9)
[2023-08-30 09:24] VITALS: BP 121/62; PULSE 80; RESP 18; TEMP 36.4; O2SAT 96
--- NOTE | 2023-08-30 10:26 | RAD_ITS ---
CLINICAL HISTORY: Female, 78 years old. Abdominal distention PROCEDURE: Small bowel follow-through CONSENT: Informed consent obtained SEDATION: None FLUOROSCOPY TIME (if supplied): No fluoroscopy, 6 overhead films obtained TECHNIQUE: (All elements of maximal sterile barrier technique followed, including US elements as applicable) There are multiple markers throughout the colon from a likely bowel motility study Contrast injected into the stomach via the NG tube. The stomach distends normally without evidence of rugal fold enlargement. There is immediate visualization of the duodenum. The C-loop is not elongated and demonstrates a normal mucosal pattern. Subsequent films were performed at 6 hours, and 12 hours. There are borderline contrast distended loops of small bowel throughout all 4 quadrants of the abdomen at the 12 hour hai consistent with ileus. No contrast is noted within the colon. RAD/Small Bowel Series Only IMPRESSION: Ileus Electronically Signed: Todd Rodrigues MD at 15:33 EST ,
[2023-08-30] MEDS: Pantoprazole Sodium 40 MG in 0.9% Normal Saline (100mL MB+) 100 ML 330 MG IV (11:37)
--- NOTE | 2023-08-30 11:43 | CASEMGMT ---
GERMAN JOSEPH Assessment: Face to Face with pt for initial transition planning/care coordination assessment. RN JAKE introduced self and role at [facility], pt voices understanding and consents to assessment. Pt is A&O x4 and answers all questions appropriately at this time. Pt sitting up in chair with NG in in no distress. Care providers, pharmacy, and demographics verified/updated. Admitting Dx:SBO PCP:Elio Specialists:MANJU, cardio; storm Sarabia [facility] Insurance:[employer] Prescription Benefit: yes LNOK:Julia Leahy, dtr; David Ocasio, son Living Arrangements: Pt lives with 10 year old grandson in a bilevel home with 2 steps to enter. Pt reports that her grandson is with his other grandma while she is hospitalized. Pt reports being I in ADL' s and denies concerns at home. Transportation: Pt drives self and denies concerns with transportation. Pt dtr also provides transportation for pt. DME:walkers, shower chair and BSC available from her former but pt does not use AD HHC/SNF:Denies hx of Pt states no concerns with going home at time of dc. Pt has outpt therapy set up at [facility] on . Pt states no further concerns/needs. CM to follow. Advised pt to ask CM if any further question/concerns/needs arise, voices understanding. Pt Goal:Home with outpt therapy already set up Plan:Home with outpt therapy already set up
[2023-08-30 12:18] LABS: Phosphorus 2.2 mg/dL (2.5-4.9)
[2023-08-30] MEDS: Ondansetron 4 MG/2 ML Vial IV (15:21)
[2023-08-30 15:24] VITALS: BP 132/65; PULSE 82; RESP 18; TEMP 36.1; O2SAT 94
[2023-08-30] MEDS: POTASSIUM PHOSPHATE IV (16:40)
[2023-08-30] MEDS: NORMAL SALINE 0.9% IV (16:40)
[2023-08-30] MEDS: HYDROmorphone 0.5 MG/0.5 ML SYRINGE IV (18:49)
[2023-08-30] MEDS: Potassium Chloride 10mEq/100mL 10 MEQ/100 ML IV.SOLN. 100 MEQ IV BOLUS ×2 (21:33→23:26)
[2023-08-30 22:19] VITALS: BP 131/55; PULSE 81; RESP 16; TEMP 36.6; O2SAT 92
[2023-08-31 04:45] VITALS: BP 149/60; PULSE 76; RESP 16; TEMP 36.6; O2SAT 95
[2023-08-31] MEDS: 0.9% Normal Saline (1000mL) 1,000 ML 125 ML IV (05:36)
[2023-08-31 07:23] LABS: Absolute Neutrophil Count 4.7 X10^3/uL (2.0-7.7); Basophil# 0.03 X10^3/uL; Basophil% 0.4 % (0-1); Eosinophil# 0.26 X10^3/uL; Eosinophils% 3.7 % (0-5); Hematocrit 34.1 % (37-47); Hemoglobin 10.9 g/dL (12.0-15.0); Lymphocyte % 19.9 % (19-41); Mean Corpuscular Hgb 29.6 pg (27.0-32.0); Mean Corpuscular Volume 92.7 fL (81-99); Mean Platelet Vol. 9.6 fl (6.2-12.0); Monocyte# 0.67 X10^3/uL; Monocyte% 9.5 % (0-10); NRBC Flagged by Analyzer 0 % (0-5); Neutrophil # 4.65 X10^3/uL (2.7-7.7); Neutrophil % 66.4 % (47-70); Platelet Count 247 K/mm3 (150-450); RBC Distribution Width CV 14.6 % (11.6-14.6); RBC Distribution Width SD 49.5 fl (35.1-43.9); Red Blood Count 3.68 M/mm3 (4.2-5.4)
[2023-08-31 07:50] LABS: Anion Gap 0 (5-15); BUN 19 mg/dL (7-18); BUN/Creat Ratio 23.1 RATIO (10-20); Calcium,Total 8.4 mg/dL (8.5-10.1); Chloride 116 mmol/L (98-107); Creatinine, Serum 0.82 mg/dL (0.55-1.02); EST Glomerular Filtration Rate 71 mL/min (>60); Est Glom Filt Rate - Afr Amer 86 mL/min (>60); Estimated Creatinine Clearance 51.22 ml/min; Glucose 80 mg/dL (74-106); Magnesium 2.3 mg/dL (1.6-2.6); Potassium 3.7 mmol/L (3.5-5.1); Sodium Level 143 mmol/L (136-145)
[2023-08-31 07:59] LABS: Phosphorus 1.8 mg/dL (2.5-4.9)
[2023-08-31] MEDS: Potassium Phosphate 21 MMOL in 0.9% Normal Saline (250mL Bag) 250 ML 84 MMOL IV (09:24)
[2023-08-31] MEDS: Pantoprazole Sodium 40 MG in 0.9% Normal Saline (100mL MB+) 100 ML 330 MG IV (09:24)
[2023-08-31 09:27] VITALS: BP 143/54; PULSE 73; RESP 17; TEMP 36.8; O2SAT 95
--- NOTE | 2023-08-31 11:12 | PN.SURG_ITS ---
Subjective Subjective Patient seen and examined during AM rounds. She is found resting in bed. She states that approximately 1115 last night she began with bowel movements and had 3 bowel movements total overnight. She shares that her nausea dissipated and that her abdominal discomfort significantly improved. Objective Data Objective Data Vital Signs: Vital Signs Temp Pulse Resp BP Pulse Ox O2 Del Method 98.2 F 73 17 143/54 H 95 Room Air 08/31/23 09:27 08/31/23 09:27 08/31/23 09:27 08/31/23 09:27 08/31/23 09:27 08/31/23 09:37 Oxygen Delivery Method Room Air Weight: 207 lb 14.334 oz Body Mass Index (BMI) 33.5 Intake & Output: Intake and Output for Last 24 Hours 08/29/23 08/30/23 08/31/23 23:59 23:59 23:59 Intake Total 1000 / 1000 2692.08 / 2692.08 1664.16 / 1664.16 Output Total 1000 / 1000 Balance 1000 / 1000 1692.08 / 1692.08 1664.16 / 1664.16 Lab / Micro Data 08/31/23 06:58 08/31/23 06:58 Labs: Laboratory Results - last 24 hr 08/30/23 04:15: Phosphorus 2.2 L, Magnesium 2.0 08/31/23 06:58: WBC 7.0, RBC 3.68 L, Hgb 10.9 L, Hct 34.1 L, MCV 92.7, MCH 29.6, MCHC 32.0 D, RDW Std Deviation 49.5 H, RDW Coeff of Unique 14.6, Plt Count 247, MPV 9.6, Immature Gran % (Auto) 0.100, Neut % (Auto) 66.4, Lymph % (Auto) 19.9, [place] % (Auto) 9.5, Eos % (Auto) 3.7, Baso % (Auto) 0.4, Absolute Neuts (auto) 4.7, Absolute Lymphs (auto) 1.40, Nucleated RBC % 0, Sodium 143, Potassium 3.7, Chloride 116 H, Carbon Dioxide 27.0, Anion Gap 0 L, BUN 19 H, Creatinine 0.82, Estim Creat Clear Calc 51.22, Est GFR (MDRD) Af Amer 86, Est GFR (MDRD) Non-Af 71, BUN/Creatinine Ratio 23.1 H, Glucose 80, Calcium 8.4 L, Phosphorus 1.8 L, Magnesium 2.3 Physical Exam Const oriented x3 and no apparent distress Resp normal respiratory effort GI GI Narrative: Minimal abdominal distention if any present. Soft and nontender to palpation x 4 quadrants. Nasogastric tube output is minimal and largely thin and brown in character. Assessment & Plan Assessment/Plan (1) Small bowel obstruction: PLAN: This is an 78-year-old female with a moderately complex past medical and past surgical history?with the former inclusive of recurrent small bowel obstructions likely owing to history of prior ventral hernia repair with mesh?specifically. She is hospital day 2 for this admission. She appears to have spontaneously resolved her obstruction event and this is objectively confirmed with contrast passage into her colon during her small bowel follow-through as well as her reports of multiple bowel movements overnight. By exam she is improved as well. Therefore, based on these observations the nasogastric tube was removed at bedside this morning and she has begun on a clear liquid diet. Will follow for tolerance. ? If patient tolerates clear liquid diet with plan to advance to full liquid diet ? Potassium is repleted but phosphorus requires further repletion (21 mmol of K- Phos ordered today); recheck tomorrow Danny Lord MD General Surgery Endocrine Surgery Pager: [facility] [address] [place] [address], [address] [place] [address] Office: [phone]
[2023-08-31 15:30] VITALS: BP 132/72; PULSE 70; RESP 17; TEMP 36.6; O2SAT 97
[2023-08-31] MEDS: 0.9% Normal Saline (1000mL) 1,000 ML 75 ML IV (15:33)
[2023-08-31 21:30] VITALS: BP 130/70; PULSE 70; RESP 16; TEMP 36.6; O2SAT 98
[2023-09-01 03:18] VITALS: BP 128/64; PULSE 72; RESP 16; TEMP 36.6; O2SAT 96
[2023-09-01] MEDS: 0.9% Normal Saline (1000mL) 1,000 ML 75 ML IV (04:30)
[2023-09-01 06:23] LABS: Anion Gap 3 (5-15); BUN 9 mg/dL (7-18); BUN/Creat Ratio 11.8 RATIO (10-20); Calcium,Total 7.9 mg/dL (8.5-10.1); Chloride 111 mmol/L (98-107); Creatinine, Serum 0.76 mg/dL (0.55-1.02); EST Glomerular Filtration Rate 78 mL/min (>60); Est Glom Filt Rate - Afr Amer 94 mL/min (>60); Glucose 88 mg/dL (74-106); Potassium 3.7 mmol/L (3.5-5.1); Sodium Level 141 mmol/L (136-145)
--- NOTE | 2023-09-01 07:51 | PCM.PN.SRG ---
Subjective Subjective Patient evaluated resting comfortably in bed. She denies any abdominal pain, nausea, vomiting, fever. She is passing flatus. She is tolerating a full liquid diet. Objective Data Objective Data Vital Signs: Vital Signs Temp Pulse Resp BP Pulse Ox O2 Del Method 97.8 F 72 16 128/64 H 96 Room Air 09/01/23 03:18 09/01/23 03:18 09/01/23 03:18 09/01/23 03:18 09/01/23 03:18 09/01/23 03:20 Oxygen Delivery Method Room Air Weight: 207 lb 14.334 oz Body Mass Index (BMI) 33.5 Intake & Output: Intake and Output for Last 24 Hours 08/30/23 08/31/23 09/01/23 23:59 23:59 23:59 Intake Total 2692.08 / 2692.08 2388.66 / 2388.66 971.25 / 971.25 Output Total 1000 / 1000 Balance 1692.08 / 1692.08 2388.66 / 2388.66 971.25 / 971.25 Lab / Micro Data 08/31/23 06:58 09/01/23 05:37 Labs: Laboratory Results - last 24 hr 08/31/23 06:58: Phosphorus 1.8 L 09/01/23 05:37: Sodium 141, Potassium 3.7, Chloride 111 H, Carbon Dioxide 27.0, Anion Gap 3 L, BUN 9, Creatinine 0.76, Estim Creat Clear Calc 42.00, Est GFR (MDRD) Af Amer 94, Est GFR (MDRD) Non-Af 78, BUN/Creatinine Ratio 11.8, Glucose 88, Calcium 7.9 L, Phosphorus 2.0 L, Magnesium 2.0 Radiography Diagnostic Testing: Radiology Impression Small Bowel X-Ray 08/30/23 10:26 IMPRESSION: Ileus Electronically Signed: Todd Rodrigues MD at 15:33 EST , Physical Exam Const alert, oriented x3 and no apparent distress GI non-tender GI Narrative: slightly distended Auscultation: normoactive bowel sounds Palpation: soft Assessment & Plan Assessment/Plan (1) Small bowel obstruction: PLAN: I am seeing this patient in conjunction with Dr. Lord Patient notes she feels back to normal Will increase her diet to transitional If she tolerates her diet will plan discharge early afternoon Will call for a progress report a little after lunchtime
--- NOTE | 2023-09-01 07:57 | PCM.DC.SUM ---
Providers Date of Admission: 08/30/23 Primary Care Physician: Dr. Jesus Ballard MD Reason For Visit: SMALL BOWEL OBSTRUCTION Diagnosis Discharge Diagnosis (1) Small bowel obstruction: Status: Acute Code(s): K56.609 - Unspecified intestinal obstruction, unspecified as to partial versus complete obstruction Plan: I am seeing this patient in conjunction with Dr. Lord Patient notes she feels back to normal Will increase her diet to transitional If she tolerates her diet will plan discharge early afternoon Will call for a progress report a little after lunchtime Medications at Discharge Home Medications folic acid 1 mg tablet 2 tab PO DAILY SUPPLEMENT 10/20/15 fluoxetine 10 mg capsule 10 mg PO DAILY DEPRESSION 10/21/15 cholecalciferol (vitamin D3) 50 mcg (2,000 unit) capsule 1,000 unit PO DAILY SUPPLEMENT 12/25/17 aspirin 81 mg tablet,delayed release 81 mg PO DAILY heart health 12/24/19 ascorbic acid (vitamin C) 500 mg capsule 500 mg PO DAILY Supplement 03/12/20 atorvastatin 10 mg tablet 10 mg PO QHS cholesterol 11/28/20 acetaminophen 500 mg tablet 500 mg PO Q6H PRN Pain 01/11/21 amlodipine 5 mg tablet 5 mg PO QHS 01/11/21 methotrexate sodium 2.5 mg tablet 15 mg PO DA SILVA RHEUMATOID 01/11/21 hydroxychloroquine 200 mg tablet 200 mg PO BID inflammation 04/13/21 furosemide 40 mg tablet 40 mg PO DAILY #90 tabs 07/05/21 potassium chloride 20 mEq tablet,extended release(part/cryst) 20 meq PO BIDCM #180 tabs 07/05/21 atenolol 25 mg tablet 25 mg PO QODAY 08/30/23 Hospital Course Summary of Care Provided Minutes Spent on Discharge: 25 Hospital Course: Patient is an 78 y/o F who presented with abdominal pain, nausea, vomiting. CT scan of the ab/pelvis demonstrated small bowel obstruction. NG tube was placed. Small bowel follow-through was obtained on 08/30/23 which demonstrated an ileus. Patient otherwise had an uneventful hospitalization. Upon discharge, patient's abdominal pain has completely resolved. Patient denies nausea, vomiting, fever. She has had multiple bowel movements and passing flatus. She had tolerated a transitional diet. Patient to go home on a transitional diet/low fiber diet for 2 weeks. Physical Exam Const alert, oriented x3 and no apparent distress GI soft to palpation and non-tender GI Narrative: Slight distention Auscultation: normoactive bowel sounds Weight / BMI Weight Weight: 207 lb 14.334 oz Body Mass Index (BMI) 33.5 ABG / Lab / Microbiology Data 08/31/23 06:58 09/01/23 05:37 Laboratory: Laboratory Results - last 24 hr 08/31/23 06:58: Phosphorus 1.8 L 09/01/23 05:37: Sodium 141, Potassium 3.7, Chloride 111 H, Carbon Dioxide 27.0, Anion Gap 3 L, BUN 9, Creatinine 0.76, Estim Creat Clear Calc 42.00, Est GFR (MDRD) Af Amer 94, Est GFR (MDRD) Non-Af 78, BUN/Creatinine Ratio 11.8, Glucose 88, Calcium 7.9 L, Phosphorus 2.0 L, Magnesium 2.0 Radiography Diagnostic Testing: Radiology Impression Small Bowel X-Ray 08/30/23 10:26 IMPRESSION: Ileus Electronically Signed: Todd Rodrigues MD at 15:33 EST Reading Location ID and State: [address] [place] [address] , Service support , D/C Instructions Discharge Diet: - (Transitional diet; low fiber diet) Discharge Activity: [address] and [place]ower Please Follow Up With: Danny Lord MD When: You may follow-up with Dr. Lord as needed. Our office number is [phone] Meaningful Use Info Meaningful Use Diagnoses (Choose all that apply): None applicable Discharge Plan Admission Admit Date/Time: 08/30/23 01:24 Primary Reason for Your Visit: Small bowel obstruction Attending Provider: Danny Lord Primary Care Provider: Jesus Ballard Instructions Additional Instructions / Restrictions: Plan to follow below diet for 2 weeks: What are low-fiber foods? If your doctor tells you to follow a low-fiber diet, here are low-fiber foods you can eat and higher-fiber foods you should avoid. Remember to always choose foods that you would normally eat. Do not try any foods that caused you discomfort or allergic reactions in the past. If you are on a ?low-residue diet,? your food choices are even more restricted than those listed below. Talk with your cancer care team or dietitian if you have questions about certain foods or amounts. Meat, fish, poultry, and protein Eat: Tender cuts of meat Ground meat Tofu Fish and shellfish Smooth peanut butter Eggs Bake, broil, or poach meats, and use mild seasonings. Try preparing meats as stews, roasts, meatloaves, casseroles, sandwiches, and soups using ingredients on the approved lists. Scramble, poach, or boil eggs; or make omelets, souffl?s, custard, puddings, and casseroles, using ingredients noted below. You might want to ask your doctor, nurse, or dietitian about other foods may be OK for you to eat, and find out when you can go back to your normal diet. Avoid: All beans, nuts, peas, lentils, and legumes Processed meats, hot dogs, sausage, and cold cuts Tough meats with gristle Dairy: Milk and cheese Eat: Only in small to medium amounts and only if they don?t cause problems for you Milk, chocolate milk, buttermilk, and milk drinks Yogurt without seeds or granola Sour cream Cheese Cottage cheese Custard or pudding Ice cream or frozen desserts (without nuts) Cream sauces, soups, and casseroles You can use these items in desserts, snacks, or breads. Bread, cereals, and grains Eat: White breads, waffles, Macedonian toast, plain white rolls, or white bread toast Pretzels Plain pasta or noodles White rice Crackers, zwieback, isabel, and matzoh (no cracked wheat or whole grains) Cereals without whole grains, added fiber, seeds, raisins, or other dried fruit Use white flour for baking and making sauces. Grains, such as white rice, Cream of Wheat, or grits, should be well-cooked. Include the above grains in casseroles, dumplings, souffl?s, cheese strata, kugels, and pudding. Avoid any food that contains: Brown or wild rice Whole grains, cracked grains, or whole wheat products Kasha (buckwheat) Cornbread or cornmeal Jim crackers Bran Wheat germ Nuts Granola Coconut Dried fruit Seeds Vegetables and potatoes Eat: Tender, well-cooked fresh or canned vegetables without seeds, stems, or skins Cooked sweet or white potatoes without skins Strained vegetable juices without pulp or spices You can also eat these with cream sauces, or in soups, souffl?s, kugels, and casseroles. Avoid: All raw or steamed vegetables All types of beans Potatoes with skin Peas Rembrandt Cabbage, broccoli, cauliflower, [place] sprouts, and greens Sauerkraut Onions Fruits and desserts Eat: Soft canned or cooked fruit without seeds or skins (small amounts) Small amounts of well-ripened banana Strained or clear juices Small amounts of soft cantaloupe or honeydew melon Cookies and other desserts without whole grains, dried fruit, berries, nuts, or coconut Sherbet and popsicles Serving suggestions include gelatins, milk shakes, frozen desserts, puddings, tapioca, cakes, and sauces. Avoid: All raw or dried fruits Berries Prune juice, prunes, and raisins Other foods Eat: Mayonnaise and mild salad dressings Margarine, butter, cream, and oils in small amounts Plain gravies Plain bouillon and broth Ketchup and mild mustard Spices, cooked herbs, and salt Sugar, honey, and syrup Clear jellies Hard candy and marshmallows Plain chocolate Avoid: Marmalade Pickles, olives, relish, and horseradish Popcorn Potato chips Liquids Keep in mind that low-fiber foods cause fewer bowel movements and smaller stools. You may need to drink extra fluids to help prevent constipation while you are on a low-fiber diet. Drink plenty of water unless your doctor tells you otherwise, and use juices and milk as noted above. Discharge Orders/Prescriptions Prescriptions: Continued amlodipine 5 mg tablet 5 mg PO QHS acetaminophen 500 mg tablet 500 mg PO Q6H PRN (Reason: Pain) potassium chloride 20 mEq tablet,ER particles/crystals 20 meq PO BIDCM Qty: 180 3RF furosemide 40 mg tablet 40 mg PO DAILY Qty: 90 3RF folic acid 1 MG tablet 2 tab PO DAILY Patient Comments: supplement fluoxetine 10 MG capsule 10 mg PO DAILY Patient Comments: depression methotrexate sodium 2.5 mg tablet 15 mg PO DA SILVA cholecalciferol (vitamin D3) 2,000 UNIT capsule 1,000 unit PO DAILY aspirin 81 MG tablet,delayed release (DR/EC) 81 mg PO DAILY hydroxychloroquine 200 mg tablet 200 mg PO BID ascorbic acid (vitamin C) 500 MG capsule 500 mg PO DAILY atorvastatin 10 MG tablet 10 mg PO QHS atenolol 25 mg tablet 25 mg PO QODAY Patient Comments: Take 1 tablet by mouth once daily. Referrals / Follow Up: Danny Lord MD [Med Staff - Active Staff] - (Follow-up as needed) Jesus Ballard MD [Primary Care Provider] - Disposition Disposition (needs filled in before D/C Order can be placed): Home, Self Care Charges/Coding Visit Charges Inpatient E&M: 42613 Disch Hosp
[2023-09-01 08:37] VITALS: BP 157/72; PULSE 71; RESP 15; TEMP 36.4; O2SAT 96
[2023-09-01] MEDS: NORMAL SALINE 0.9% IV (10:28)
[2023-09-01] MEDS: Pantoprazole Sodium 40 MG in 0.9% Normal Saline (100mL MB+) 100 ML 330 MG IV (10:28)
[2023-09-01] MEDS: POTASSIUM PHOSPHATE IV (10:28)
--- NOTE | 2023-09-01 13:07 | CASEMGMT ---
Patient has order for discharge. RN CM in to discuss needs at discharge. Patient denies needs or help at discharge. Patient to follow-up with outpatient therapy at [facility]. Patient had no further questions or concerns at this time.
--- NOTE | 2023-09-01 13:30 | PHA.DC.MR.R ---
Pharmacy [place] Med Reconciliation Pharmacy Service has performed discharge medication reconciliation for this patient. The patient's discharge medication list was reviewed for discrepancies and discrepancies were resolved. Medications at Discharge Home Medications folic acid 1 mg tablet 2 tab PO DAILY SUPPLEMENT 10/20/15 fluoxetine 10 mg capsule 10 mg PO DAILY DEPRESSION 10/21/15 cholecalciferol (vitamin D3) 50 mcg (2,000 unit) capsule 1,000 unit PO DAILY SUPPLEMENT 12/25/17 aspirin 81 mg tablet,delayed release 81 mg PO DAILY heart health 12/24/19 ascorbic acid (vitamin C) 500 mg capsule 500 mg PO DAILY Supplement 03/12/20 atorvastatin 10 mg tablet 10 mg PO QHS cholesterol 11/28/20 acetaminophen 500 mg tablet 500 mg PO Q6H PRN Pain 01/11/21 amlodipine 5 mg tablet 5 mg PO QHS 01/11/21 methotrexate sodium 2.5 mg tablet 15 mg PO DA SILVA RHEUMATOID 01/11/21 hydroxychloroquine 200 mg tablet 200 mg PO BID inflammation 04/13/21 furosemide 40 mg tablet 40 mg PO DAILY #90 tabs 07/05/21 potassium chloride 20 mEq tablet,extended release(part/cryst) 20 meq PO BIDCM #180 tabs 07/05/21 atenolol 25 mg tablet 25 mg PO QODAY 08/30/23
[2023-09-01 14:30] VITALS: BP 144/70; PULSE 76; RESP 16; TEMP 36; O2SAT 100
== END 2023-09-01 15:10 | disposition home or self-care (01) | DRG 389 ==
LOC: ED 08-30 01:45 → PCU 08-30 03:01
PROVIDERS: Admitting Provider Surgery; Emergency Provider Emergency Medicine; PCP Internal Medicine; Referring Provider Surgery; Visit Provider Surgery
DX: K56.609 Unspecified intestinal obstruction, unspecified as to partial versus complete obstruction (principal); I13.0 Hypertensive heart and chronic kidney disease with heart failure and stage 1 through stage 4 chronic kidney disease, or unspecified chronic kidney disease; N18.30 Chronic kidney disease, stage 3 unspecified; K56.690 Other partial intestinal obstruction; E78.2 Mixed hyperlipidemia; Z98.0 Intestinal bypass and anastomosis status; Z90.49 Acquired absence of other specified parts of digestive tract; Z79.82 Long term (current) use of aspirin; Z79.899 Other long term (current) drug therapy; Z85.038 Personal history of other malignant neoplasm of large intestine; Z87.891 Personal history of nicotine dependence
CPT/HCPCS: 36415; 74018; 74177; 74250; 80048; 80053; 81001; 83605; 83690; 83735; 84100; 85025; 97802; 99285; J7030; J7040; J7050; Q9967; A4216; J2405

== ENCOUNTER → 2023-09-25 | Outpatient (CLI) | payer MEDICARE, BC, SELFPAY ==
--- OUTSIDE RECORDS SUMMARY | 2023-09-25 09:14 | XMS RPT_ITS | CCD ---
Author Name Unknown Address [id number] [place] [address] Organization [facility] Care Team Providers Care Digitizer Operator Name Role Phone Unavailable Primary Care Provider UnavailJesus Yan Primary Care Provider Elio DOMINGUEZ, Jesus Ivy Primary Care Provider [phone] Manas Guerra RN Unavailable Unavailbairon Iyer MD, Jesus Ivy Primary Care Provider [phone] Manas Guerra RN Unavailable Unavailbairon Malagon RN, Sherif Childress Unavailable Unavailbairon Iyer MD, Jesus Ivy Primary Care Provider [phone] Manas PORTER, Sherif Childress Unavailable Unavailbairon Malagon RN, Sherif Childress Unavailable UnavailJESUS Yan Referring Unavailable ELIO, JESUS Ivy Primary Care Unavailable JESUS IYER Attending Unavailable JESUS IYER Primary Care Unavailable JESUS IYER Referring Unavailable ELIO, JESUS Ivy Primary Care Unavailable JESUS IYER Referring Unavailable JESUS IYER Attending Unavailable JESUS IYER Primary Care Unavailable ELIO, JESUS Ivy Primary Care Unavailable SHERIN WELLS Attending Unavailable JESUS IYER Primary Care Unavailable SHERIN WELLS Attending Unavailable JESUS IYER Primary Care Unavailable ASHUSHERIN JAY Referring Unavailable ELIO, JESUS Ivy Primary Care Unavailable SHERIN WELLS Attending Unavailable JESUS IYER Primary Care Unavailable Allergies Allergy Classification Reported Allergen(s) Allergy Type Date of Onset Reaction(s) Facility (20 sources) Azithromycin; Translations: [AZITHROMYCIN] Drug Allergy 09-04-20 05 [facility] ([place] sources) Codeine; Translations: [CODEINE] Drug Allergy 07-17-20 05 [place], [place] (20 sources) Nitroglycerin; Translations: [NITROGLYCERIN] Drug Allergy 07-17-20 05 [place], [place] (5 sources) Penicillins; Translations: [PENICILLINS] Propensity to adverse reactions to drug 07-17-20 05 Rash, Shortness Of Breath [place], [place] (4 sources) Sulfonamides (Antibiotic) Propensity to adverse reactions to drug 07-17-20 05 Rash [place] (3 sources) hydroCHLOROthiazide Drug Allergy 12-29-19 Hives [place] (1 source) Nitrofurans (Antibiotic) Propensity to adverse reactions to drug 07-28-20 Other (See Comments) [place] (14 sources) Penicillins Propensity to adverse reactions 07-17-20 05 Rash, Shortness of Breath [facility] Work Phone: (20 sources) Sulfonamides (Antibiotic); Translations: [SULFA (SULFONAMIDE ANTIBIOTICS)] Propensity to adverse reactions 07-17-20 05 Rash [facility] Work Phone: (20 sources) Penicillins Propensity to adverse reactions 07-17-20 05 Rash, Shortness of Breath [facility] Work Phone: Medications Current Medications Medication Drug Class(es) Dates Sig (Normalized) Sig (Original) acetaminophen 325 mg / oxyCODONE hydrochloride 5 mg oral tablet (3 sources) Opioid Agonist Start: 07-28-2020 End: 08-04-2020 take 1 tablet by mouth every eight hours as needed for pain oxyCODONE-acetami nophen (PERCOCET) 5-325 MG per tablet Indications: Carpal tunnel syndrome of right wrist , S/P endoscopic carpal tunnel release Take 1 tablet by mouth every 8 hours as needed for Pain for up to 7 days. 20 tablet 0 07/28/2020 08/04/2020 Active Completed/Discontinued Medications Medication Drug Class(es) Dates Sig (Normalized) Sig (Original) acetaminophen 500 mg oral tablet (3 sources) Start: 07-28-2020 End: 07-28-2020 acetaminophen (TYLENOL) tablet 1,000 mg Problems Active Problems Problem Classification Problem Date Documented Da te Episodic/Chronic Anxiety disorders (20 sources) Anxiety state; Translations: [Generalized anxiety disorder] Onset: 07-16-2017 07-16-2017 Chronic Chronic kidney disease (20 sources) Chronic kidney disease stage 3; Translations: [Chronic kidney disease (CKD), stage III (moderate)] Onset: 08-18-2019 03-15-2021 Chronic Congestive heart failure; nonhypertensive (9 sources) Congestive heart failure; Translations: [Heart failure, unspecified] Onset: 06-23-2023 Chronic Disorders of lipid metabolism (20 sources) Hyperlipidemia; Translations: [Hyperlipidemia, unspecified] Onset: 07-31-2015 07-31-2015 Chronic Essential hypertension (20 sources) Hypertensive disorder; Translations: [Essential (primary) hypertension] Onset: 10-01-2010 10-01-2010 Chronic Fracture of upper limb (6 sources) Open Colles' fracture; Translations: [Type I or II open Colles' fracture of left radius, initial encounter] 12-24-2019 Episodic Hypertension with complications and secondary hypertension (20 sources) Hypertensive renal disease; Translations: [Hypertensive chronic kidney disease with stage 1 through stage 4 chronic kidney disease, or unspecified chronic kidney disease] Onset: 10-10-2022 10-10-2022 Chronic Immunizations and screening for infectious disease (2 sources) Patient encounter status; Translations: [Encounter for immunization] Onset: 06-23-2023 06-23-2023 Episodic Intestinal obstruction without hernia (2 sources) Intestinal adhesions [bands], unspecified as to partial versus complete obstruction; Translations: [Intestinal or peritoneal adhesions with obstruction (postoperative) (postinfection)] Onset: 09-09-2023 Episodic Malaise and fatigue (1 source) Chronic fatigue, unspecified; Translations: [Chronic fatigue] Onset: 09-09-2023 Chronic Mood disorders (20 sources) Depressive disorder; Translations: [Depressive disorder] Onset: 07-16-2017 07-16-2017 Chronic Nausea and vomiting (1 source) Nausea; Translations: [Chronic nausea] Onset: 09-09-2023 Episodic Nutritional deficiencies (20 sources) Vitamin D deficiency; Translations: [Vitamin D deficiency, unspecified] Onset: 01-28-2011 01-28-2011 Chronic Osteoporosis (20 sources) Osteoporosis; Translations: [Age-related osteoporosis without current pathological fracture] 02-12-2017 Chronic Other connective tissue disease (1 source) Triggering of digit; Translations: [Trigger index finger of left hand] Episodic Other injuries and conditions due to external causes (1 source) H/O: fracture; Translations: [S/P ORIF (open reduction internal fixation) fracture] Episodic Other lower respiratory disease (1 source) Dyspnea; Translations: [Shortness of breath] Episodic Other nervous system disorders (1 source) Carpal tunnel syndrome of right wrist; Translations: [Carpal tunnel syndrome of right wrist] Other nutritional; endocrine; and metabolic disorders (20 sources) Obese class I; Translations: [Obesity, unspecified] Onset: 08-18-2019 08-18-2019 Chronic Residual codes; unclassified (20 sources) Obstructive sleep apnea syndrome; Translations: [Obstructive sleep apnea (adult) (pediatric)] Onset: 07-28-2014 11-07-2016 Chronic Residual codes; unclassified (1 source) Obstructive sleep apnea (adult) (pediatric); Translations: [REY on CPAP] Onset: 11-07-2016 Chronic Residual codes; unclassified (2 sources) H/O: surgery; Translations: [S/P hardware removal] Episodic Residual codes; unclassified (1 source) History of decompression of median nerve; Translations: [S/P endoscopic carpal tunnel release] Episodic Rheumatoid arthritis and related disease (20 sources) Rheumatoid arthritis of multiple joints; Translations: [Rheumatoid arthritis without rheumatoid factor, multiple sites] Onset: 12-21-2009 07-16-2017 Chronic Past or Other Problems Problem Classification Problem Date Documented Date Episodic/Chronic Cancer of colon (20 sources) History of malignant neoplasm of colon; Translations: [Personal history of other malignant neoplasm of large intestine] Onset: 07-17-2005 08-05-2006 Episodic Malaise and fatigue (2 sources) Fatigue; Translations: [Other fatigue] Onset: 01-21-2023 Episodic Other lower respiratory disease (18 sources) Dyspnea on exertion; Translations: [Dyspnea, unspecified] Onset: 03-19-2021 03-19-2021 Episodic Other lower respiratory disease (1 source) Shortness of breath; Translations: [Shortness of breath] Onset: 01-21-2023 Episodic Other nervous system disorders (20 sources) Abnormal gait; Translations: [Unspecified abnormalities of gait and mobility] Onset: 07-13-2020 07-13-2020 Episodic Other non-traumatic joint disorders (2 sources) Pain in left knee; Translations: [Pain in joint, lower leg] Onset: 12-10-2022 Episodic Residual codes; unclassified (20 sources) Bilateral lower limb edema; Translations: [Localized edema] Onset: 03-19-2021 03-19-2021 Episodic Spondylosis; intervertebral disc disorders; other back problems (20 sources) Sciatica; Translations: [Sciatica, right side] Onset: 09-26-2021 09-26-2021 Episodic Results Test Name Value Interpretation Reference Range Facil ity Vital Signs Date Time Vital Sign Value Performing Clinician Facility 06-23-2023 12:56-0400 Diastolic blood pressure 70 mm[Hg] Sherin Older SPINDLE PLUMBER.EMISSIONS ENGINEER Work Phone: [facility] 06-23-2023 12:56-0400 Systolic blood pressure 128 mm[Hg] Sherin Older [employer]UM[employer].EMISSIONS ENGINEER Work Phone: [facility] 06-23-2023 12:36-0400 Body height 165.1 cm Sherin Older [employer]LE [employer]UM[employer].EMISSIONS ENGINEER Work Phone: [facility] 06-23-2023 12:36-0400 Body weight 95.39 kg Sherin Older [employer]INDLE [employer]UMBER.EMISSIONS ENGINEER Work Phone: [facility] 06-23-2023 12:36-0400 Heart rate 72 /min Sherin Older [employer]UM[employer].EMISSIONS ENGINEER Work Phone: [facility] 06-23-2023 12:36-0400 SaO2% (BldA) [Mass fraction] 97 % Sherin Older [employer]INDLE [employer]UMBER.EMISSIONS ENGINEER Work Phone: [facility] 01-21-2023 10:50-0400 Body weight 97.07 kg Sherin Older [employer]UM[employer].EMISSIONS ENGINEER Work Phone: [facility] 01-21-2023 10:50-0400 Diastolic blood pressure 74 mm[Hg] Sherin Older [employer].EMISSIONS ENGINEER Work Phone: [facility] 01-21-2023 10:50-0400 Heart rate 61 /min Sherin Older [employer].EMISSIONS ENGINEER Work Phone: [facility] 01-21-2023 10:50-0400 Respiratory rate 18 /min Sherin Older [employer]UM[employer].EMISSIONS ENGINEER Work Phone: [facility] 01-21-2023 10:50-0400 Systolic blood pressure 126 mm[Hg] Sherin Older [employer]UM[employer].EMISSIONS ENGINEER Work Phone: [facility] 12-10-2022 11:09-0400 Diastolic blood pressure 71 mm[Hg] Jesus Iyer MD Work Phone: [facility] 12-10-2022 11:09-0400 Heart rate 75 /min Jesus Iyer MD Work Phone: [facility] 12-10-2022 11:09-0400 Systolic blood pressure 132 mm[Hg] Jesus Iyer MD Work Phone: [facility] 12-10-2022 11:02-0400 Body height 165.1 cm Jesus Iyer MD Work Phone: [facility] 12-10-2022 11:02-0400 Body weight 94.35 kg Jesus Iyer MD Work Phone: [facility] 12-10-2022 11:02-0400 Respiratory rate 16 /min Jesus Iyer MD Work Phone: [facility] 05-10-2022 15:58-0400 Body height 167.6 cm Puja Betts MD Work Phone: [facility] 05-10-2022 15:58-0400 Body temperature 97.39 [degF] Puja Betts MD Work Phone: [facility] 05-10-2022 15:58-0400 Body weight 94.8 kg Puja Betts MD Work Phone: [facility] 05-10-2022 15:58-0400 Diastolic blood pressure 72 mm[Hg] Puja Betts MD Work Phone: [facility] 05-10-2022 15:58-0400 Heart rate 105 /min Puja Betts MD Work Phone: [facility] 05-10-2022 15:58-0400 SaO2% (BldA) [Mass fraction] 96 % Puja Betts MD Work Phone: [facility] 05-10-2022 15:58-0400 Systolic blood pressure 150 mm[Hg] Puja Betts MD Work Phone: [facility] 07-28-2020 13:15-0500 BP [facility] 53 mm[facility]Hg[facility] [place] [facility] 13:15-0500 BP Systolic 123 mm[Hg] [facility] [place] 07-28-2020 13:15-0500 Pulse (Heart Rate) 73 /min [facility] 07-28-2020 13:15-0500 Pulse [facility]ximetry 95 % [facility] [place] 07-28-2020 13:07-0500 Body Temperature 97.39 [degF] [facility] 07-28-2020 13:07-0500 Respiratory Rate 16 /min [facility] 07-28-2020 11:34-0500 BMI (Body Mass Index) 35.64 kg/m2 [facility] 07-28-2020 11:34-0500 Body [facility].15 [facility] [place] 07-28-2020 11:34-0500 Height 167.6 cm [facility] [place] 04-21-2020 11:14-0400 Body Temperature 97.3 [degF] [facility] [place] 04-21-2020 11:14-0400 BP Diastolic 60 mm[Hg] [facility] [place] 04-21-2020 11:14-0400 BP Systolic 138 mm[Hg] [facility] [place] 04-21-2020 11:14-0400 Pulse (Heart Rate) 79 /min [facility] [place] 04-21-2020 11:14-0400 Pulse Oximetry 95 % [facility] [place] 04-21-2020 11:14-0400 Respiratory Rate 16 /min Tuan Arenas [facility] [place] 04-21-2020 08:37-0400 BMI (Body Mass Index) 35.14 kg/m2 Tuan Arenas [facility] [place], [place] 04-21-2020 08:37-0400 Body weight 98.75 kg [facility] [place] 04-21-2020 08:37-0400 Height 167.6 cm [facility] [place] 04-14-2020 13:55-0400 Body Temperature 97.7 [degF] Tuan [facility] [place] 04-14-2020 13:55-0400 BP Diastolic 77 mm[Hg] [facility] [place] 04-14-2020 13:55-0400 BP Systolic 147 mm[Hg] [facility]uan [facility] , [place] 04-14-2020 13:55-0400 Pulse (Heart Rate) 68 /min [facility] [place] 04-14-2020 13:55-0400 Pulse Oximetry 97 % [facility] [place] 04-14-2020 13:55-0400 Respiratory Rate 16 /min Tuan Arenas [facility] 04-14-2020 13:50-0400 BMI (Body Mass Index) 35.09 kg/m2 Tuan Aren[facility] 04-14-2020 13:50-0400 Body weight 98.6 kg [facility] [place] 04-14-2020 13:50-0400 Height 167.6 cm [facility] [place] 12-25-2019 10:44-0400 Body Temperature 98.2 [degF] [facility] Danish Mercemilee [facility] [place], [place] 12-25-2019 10:44-0400 BP Diastolic 68 mm[Hg] [facility] [place] 12-25-2019 10:44-0400 BP Systolic 142 mm[Hg] [facility] [place] 12-25-2019 10:44-0400 Pulse (Heart Rate) 81 /min [facility] 12-25-2019 10:44-0400 Pulse Oximetry 96 % [place], [place] 12-25-2019 10:44-0400 Respiratory Rate 16 /min [facility] Danish [facility], [place] 12-24-2019 14:06-0400 BMI (Body Mass Index) 36.8 kg/m2 [place], [place] 12-24-2019 14:06-0400 Body weight 103.42 kg [place], [place] 12-24-2019 14:06-0400 Height 167.6 cm [place] Encounters Encounter Date Encounter Type Care Provider Facility Start: 09-09-2023 End: 09-10-2023 ambulatory [facility] ELIO Facility:[facility] Start: 09-04-2023 End: 09-04-2023 ambulatory [facility] Facility:[facility] Start: 07-23-2023 ambulatory Sherif Malagon RN Am bulatory Care Management Procedures Date Procedure Procedure Detail Performing Clinician Start: 06-23-2023 INFLUENZA VACCINE, P RSV FREE, AGE 65+ YR, HIGH DOSE, QUADRIVALENT (FLUZONE HIGH-DOSE) Sherin Older [employer]INDLE [employer]UMBER.DORIAN Work Phone: Start: 01-21-2023 Ecg routine ecg w/le ast 12 lds i&r only [facility] Provider Start: 04-21-2020 OPERATIVE REPORT 3m Sca nning Start: 12-24-2019 OPERATIVE REPORT 3m Sca nning Start: 12-24-2019 Basic metabolic pane l calcium total Lc Coleman Work Phone: Start: 12-24-2019 Blood count complete auto&auto difrntl wbc Lc Coleman Work Phone: Start: 12-24-2019 Blood typing serologic abo Lc Coleman Work Phone: Start: 12-24-2019 Prothrombin time Lc Coleman Work Phone: Start: 12-24-2019 Chest x-ray 1 view frontal Lc Coleman Work Phone: Plan of Treatment Date Care Activity Detail Author Start: 10-15-2025 DIABETES SCREEN DIABETES SCREEN [facility] Start: 10-15-2025 Diabetes Screening Diabetes Screenin g [facility] Start: 11-07-2024 DIABETES SCREEN DIABETES SCREEN [facility] Start: 06-23-2024 Annual PCP Team Hosting Engineer pedro Disease Visit Annual PCP Team Chronic Disease Visit [facility] Start: 06-23-2024 BP Controlled (<130/80) BP Controlle d (<130/80) [facility] Start: 06-23-2024 Shingrix Vaccine (1 of 2) Shingrix V accine (1 of 2) [facility] Immunizations Immunization Date Immunization Notes Care Provider Fa jose 06-23-2023 influenza (HD-IIV4) vaccine, age 65+ yr, high dose, quadrivalent, PF (FLUZONE HIGH-DOSE) Sherin Older [employer]LE [employer]UMBER.EMISSIONS ENGINEER Work Phone: [facility] 07-01-2022 influenza (HD-IIV4) vaccine, age 65+ yr, high dose, quadrivalent, PF (FLUZONE HIGH-DOSE) Jesus Iyer MD Work Phone: [facility] Work Phone: 07-01-2022 influenza virus vacc ine, unspecified formulation Jesus Iyer MD Work Phone: [facility] 06-09-2022 tetanus toxoid, redu zach diphtheria toxoid, and acellular pertussis vaccine, adsorbed Jesus Iyer MD Work Phone: [facility] Work Phone: 11-30-2021 COVID-19 vaccine, ag e 12+ yr (PFIZER-BIONTECH - HODGE TOP) Manas Guerra RN [facility] 07-19-2021 influenza, high-dose , quadrivalent vaccine (FLUZONE HIGH DOSE QUADRIVALENT) Manas Guerra RN [facility] 07-06-2021 COVID-19 original vaccine, age 12+ yr, monovalent (PFIZER-BIONTECH - PURPLE TOP) Sherin Older [employer]INDLE [employer]UMBER.EMISSIONS ENGINEER Work Phone: [facility] 11-13-2020 COVID-19 vaccine, ag e 12+ yr (PFIZER-BIONTECH - PURPLE TOP) Manas Guerra RN [facility] 10-25-2020 COVID-19 vaccine, ag e 12+ yr (PFIZER-BIONTECH - PURPLE TOP) Manas Guerra RN [facility] 06-06-2020 influenza, high dose seasonal, preservative-free Manas Guerra [facility] Work Phone: 06-02-2019 influenza, high dose seasonal, preservative-free Manas Guerra [facility] Work Phone: 06-06-2018 influenza, high dose seasonal, preservative-free Manas Guerra [facility] Work Phone: 07-02-2017 influenza, high dose seasonal, preservative-free Manas Guerra RN [facility] 06-21-2016 zoster vaccine, live Manas Guerra [facility] Work Phone: 05-25-2016 influenza virus vacc ine, unspecified formulation Manas Guerra [facility] 07-31-2015 pneumococcal conjuga te vaccine, 13 valent Manas Guerra [facility] 06-22-2015 influenza, seasonal, injectable Manas Guerra [facility] Work Phone: 07-28-2014 pneumococcal polysaccharide vaccine, 23 valent Manas Guerra [facility] 07-21-2014 influenza, seasonal, injectable Manas Guerra [facility] Work Phone: 07-17-2013 influenza virus vacc ine, unspecified formulation Manas Guerra [facility] Work Phone: 08-01-2012 influenza virus vacc ine, unspecified formulation Manas Guerra RN [facility] 09-12-2011 influenza virus vacc ine, unspecified formulation Manas Guerra RN [facility] 01-28-2011 tetanus and diphther ia toxoids, adsorbed, preservative free, for adult use (2 Lf of tetanus toxoid and 2 Lf of diphtheria toxoid) Manas Guerra RN [facility] 07-24-2010 influenza virus vacc ine, unspecified formulation Manas Guerra [facility] Work Phone: 06-16-2009 influenza virus vacc ine, unspecified formulation Manas Guerra RN [facility] 08-26-2007 influenza virus vacc ine, unspecified formulation Manas Guerra RN [facility] 08-05-2006 influenza virus vacc ine, unspecified formulation Manas Guerra RN [facility] Work Phone: 07-17-2005 influenza virus vacc ine, unspecified formulation Manas Guerra RN [facility] Work Phone: 03-02-2002 pneumococcal polysaccharide vaccine, 23 valent Manas Guerra RN [facility] Work Phone: Payers Date Payer Category Payer Unknown [employer] [place] [employer] [facility] [id number] 2019-Present [address] [place] [address] [id number] 2008 Medicare [id number] 2008 Medicare [id number] 2008 Medicare MEDICARE MEDICAR E A AND B [id number] 2008-Present [phone] [address] [address] [place] [address] Medicare [id number] 2008 Unknown [id number] Social History Date Type Detail Facility Start: 12-24-2019 Tobacco smoking stat us ILIS Unknown if ever smoked [facility]a [facility] Start: 1945 Sex Assigned At Not on file M katheryn [facility] Start: 04-14-2020 End: 05-09-2022 Tobacco smoking status NHIS Former smoker [facility] End: 09-22-2001 [facility] of tobacco use [facility] Start: 04-14-2020 End: 05-09-2022 Tobacco use and exposure [facility] Start: 04-14-2020 End: 07-28-2020 Alcohol intake Lifetime non-drinker (finding) [facility] [employer] [facility] Start: 04-14-2020 History SDOH Alcohol Frequency 1 [facility] Start: 04-27-2022 End: 05-09-2022 Exposure to SARS-CoV-2 (event) [facility] sure [facility] End: 09-22-2000 History of tobacco use Cigarette Smoker [facility] Start: 11-30-2021 End: 10-14-2022 Alcohol intake Current non-drinker of alcohol (finding) [facility] Start: 04-30-2011 End: 06-23-2023 Cigarettes smoked current (pack per day) - Reported 1.5 [facility] Work Phone: Start: 05-09-2022 Tobacco Comment Quit 2000 [facility] Start: 1945 Sex Assigned At Female C [facility] Start: 12-10-2022 End: 06-23-2023 Alcohol intake Current drinker of alcohol (finding) [facility] Start: 12-10-2022 History SDOH Physica l Activity DPW 0 [facility] Start: 12-10-2022 Alcohol Comment one glass of w ine rare, occasions. [facility] Start: 01-21-2023 End: 06-23-2023 Tobacco use panel [facility] Work Phone: National Score (1-10 0), lower number is lower risk 48 [facility] Work Phone: Start: 05-10-2022 Gender identity Identifies as female gender (finding) [facility] Goals Date Patient Goal Desired Activity /State Personal health goal Clinical Notes 12-11-2020 to 09-09-2023 Sherif Malagon RN - 07/23/2023 5:25 PM Sherif Esteban RN - 07/15/2023 1:26 PM Sherif Esteban RN - 07/14/2023 4:38 PM EDTStaSherif potter RN - 07/10/2023 6:15 PM EDT Note Date & Type Note Facility 09-09-2023 Note HNO ID: [id number] Author: Sherin Wells APRN.EMISSIONS ENGINEER Service: ? Author Type: Nurse Practitioner Type: Progress Notes Filed: 09/09/2023 2:00 PM Note Text: CC: Patient presents with: ED Follow-up: [facility] discharge 09/01 - bowel obstruction HPI Brittany Portillo is a 78 year old female who presents today for above. Patient was admitted to [facility] 08/30 to 09/[address] Small bowel follow through on 08/30 demonstrated an ileus. Discharged home on a low fiber diet x 2 weeks and to follow-up with general surgery as needed. No new medications or changes made. Patient reports mild upper abdominal discomfort after eating that lasts for about 20 minutes. Denies abdominal pain, decreased appetite, vomiting, diarrhea, constipation, black/bloody stools. She has chronic fatigue and nausea for months, especially in the mornings. History of GERD, no longer on PPI. Gets occasional heartburn but infrequent. Review of Systems Constitutional: Positive for fatigue. Negative for chills, diaphoresis, fever and unexpected weight change. HENT: Negative for trouble swallowing. Respiratory: Negative for cough, shortness of breath and wheezing. Cardiovascular: Negative for chest pain, palpitations and leg swelling. Gastrointestinal: Negative for abdominal distention. Neurological: Negative for dizziness, syncope, weakness and light-headedness. PAST MEDICAL HISTORY Diagnosis Date Anxiety state Bowel obstruction (HCC) 2021 Congestive heart failure (HCC) 12/11/2020 COVID-19 04/30/2022 Home test+ with symptoms Depressive disorder Esophageal reflux GERD Fracture, Colles, left, open 04/20/2020 Hyperlipidemia 07/31/2015 Hypertension Internal hemorrhoids with other complication Malignant neoplasm of colon, unspecified site 2001 colo-rectal cancer Obesity, unspecified REY on CPAP 07/28/2014 Osteoporosis, unspecified Partial small bowel obstruction (HCC) 10/03/2021 and 03/12/2020 Polymyalgia rheumatica (HCC) Rheumatoid arthritis 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) 12/21/2009 Dr. Sarabia. Small bowel obstruction, partial (HCC) 05/05/202205/2011; 10/26/12; 09/2021. Recurrent. Stage 3a chronic kidney disease ([facility]) 08/18/2019 Type II or unspecified type diabetes mellitus without mention of complication, not stated as uncontrolled 2000 PAST SURGICAL HISTORY Procedure Laterality Date BREAST BIOPSY NEEDLE LEFT Left 04/21/2019 benign BX BREAST W/DEVICE 1ST LESION STEREOTACTIC GUID Left 12/16/2016 DELIVERY ONLY 1982 , low cervical. 3 times (69,71,82) COLECTOMY PARTIAL W/ANASTOMOSIS 03/15/2002 low ant. resection with anastomosis of high rectal cancer. COLONOSCOPY FLX DX W/COLLJ SPEC WHEN PFRMD 2001 Colonoscopy COLONOSCOPY FLX DX W/COLLJ SPEC WHEN PFRMD 10/11/2005 COLONOSCOPY FLX DX W/COLLJ SPEC WHEN PFRMD 03/13/2007 Patent low anastomosis, hemorrhoids COLONOSCOPY FLX DX W/COLLJ SPEC WHEN PFRMD 02/08/2011 COLONOSCOPY FLX DX W/COLLJ SPEC WHEN PFRMD 11/08/2015 EGD TRANSORAL BIOPSY SINGLE/MULTIPLE 09/08/2015 ENTEROLSS FRING INTSTINAL ADHESION SPX 01/28/2007 HAND TENDON AMINTA RECONSTRUCTION Left 04/21/2020 A1 aminta release of stenosis tenosynovitis; wrist hardware removal PAST SURGICAL HISTORY OF Right 07/28/2020 Right carpal tunnel repair REPAIR WRIST FRACTURE Left 12/24/2019 ORIF distal radius fx, dorsal spanning plate, debridement of open fracture, carpal tunnel release TOTAL KNEE REPLACEMENT Right 02/2013 UNLIS LAPS PX HRNAP HERNIORRHAPHY HERNIOTOMY 01/28/2007 VENTRAL ALLERGIES Codeine, Nitroglycerin, Penicillins, Sulfa (Sulfonamide Antibiotics), and Zithromax [Azithromycin] MEDICATIONS potassium chloride ER (KLOR-CON) 20 mEq tablet Take 1 tablet by mouth two times a day. furosemide (LASIX) 40 mg tablet Take 1 tablet by mouth once daily. atenolol (TENORMIN) 25 mg tablet Take 1 tablet by mouth every other day. amLODIPine (NORVASC) 5 mg tablet Take 1 tablet by mouth once daily. atorvastatin (LIPITOR) 10 mg tablet Take 1 tablet by mouth daily at bedtime. For cholesterol. FLUoxetine (PROZAC) 10 mg capsule Take 1 capsule by mouth once daily. methotrexate 2.5 mg tablet Take 7 tablets by mouth one time a week. ascorbic acid, vitamin C, (VITAMIN C) 500 mg tablet Take 500 mg by mouth once daily. aspirin, enteric coated (ADULT LOW DOSE ASPIRIN) 81 mg EC tablet Take 1 tablet by mouth once daily. COMPOUNDED PRESCRIPTION CPAP supplies hydroxychloroquine 200 mg ORAL tablet Take by mouth twice daily. cholecalciferol(VITAMIN D-3 1,000 UNIT CHEWABLE TAB) Take one(1) tablet daily. FOLIC ACID 1 MG TAB Take 2 mg by mouth once daily. FAMILY HISTORY Problem Relation Age of Onset Cancer Mother liver Hypertension Mother Diabetes Mother Arthritis Mother Coronary Artery Disease Father of mi Diabetes Sister Blood Disease Sister leukemia Dementia Sister Diabetes Sister Coronary Artery Disease Sister A (more content not included)... [facility] 09-04-2023 Note HNO ID: [id number] Author: Piper Salamanca PA Service: ? Author Type: Physician Admissions Evaluator Type: Progress Notes Filed: 09/04/2023 11:24 AM Note Text: This note was created using [employer]. Subjective Brittany Portillo is a 78 year old female. HPI 78-year-old female presents for COVID-19 exposure. Patient states that her daughter is COVID-19. She states that she has been driving her grandson to and from school every day. States her grandson does not have any symptoms, but due to the exposure, she wanted to be tested. She states she is going on a trip tomorrow with her friends and does not want to expose them. She has no symptoms. No cough, fevers, congestion or URI symptoms. No chest pain or shortness of breath. No other complaint. PAST MEDICAL HISTORY Diagnosis Date Anxiety state Bowel obstruction (HCC) 2021 Congestive heart failure (HCC) 12/11/2020 COVID-19 04/30/2022 Home test+ with symptoms Depressive disorder Esophageal reflux GERD Fracture, Colles, left, open 04/20/2020 Hyperlipidemia 07/31/2015 Hypertension Internal hemorrhoids with other complication Malignant neoplasm of colon, unspecified site 2001 colo-rectal cancer Obesity, unspecified REY on CPAP 07/28/2014 Osteoporosis, unspecified Partial small bowel obstruction (HCC) 10/03/2021 and 03/12/2020 Polymyalgia rheumatica (HCC) Rheumatoid arthritis 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) 12/21/2009 Dr. Sarabia. Small bowel obstruction, partial (HCC) 05/05/202205/2011; 10/26/12; 09/2021. Recurrent. Stage 3a chronic kidney disease ([facility]) 08/18/2019 Type II or unspecified type diabetes mellitus without mention of complication, not stated as uncontrolled 2000 PAST SURGICAL HISTORY Procedure Laterality Date BREAST BIOPSY NEEDLE LEFT Left 04/21/2019 benign BX BREAST W/DEVICE 1ST LESION STEREOTACTIC GUID Left 12/16/2016 DELIVERY ONLY 1981 , low cervical. 3 times (69,71,82) COLECTOMY PARTIAL W/ANASTOMOSIS 03/15/2002 low ant. resection with anastomosis of high rectal cancer. COLONOSCOPY FLX DX W/COLLJ SPEC WHEN PFRMD 2001 Colonoscopy COLONOSCOPY FLX DX W/COLLJ SPEC WHEN PFRMD 10/11/2005 COLONOSCOPY FLX DX W/COLLJ SPEC WHEN PFRMD 03/13/2007 Patent low anastomosis, hemorrhoids COLONOSCOPY FLX DX W/COLLJ SPEC WHEN PFRMD 02/08/2011 COLONOSCOPY FLX DX W/COLLJ SPEC WHEN PFRMD 11/08/2015 EGD TRANSORAL BIOPSY SINGLE/MULTIPLE 09/08/2015 ENTEROLSS FRING INTSTINAL ADHESION SPX 01/28/2007 HAND TENDON AMINTA RECONSTRUCTION Left 04/21/2020 A1 aminta release of stenosis tenosynovitis; wrist hardware removal PAST SURGICAL HISTORY OF Right 07/28/2020 Right carpal tunnel repair REPAIR WRIST FRACTURE Left 12/24/2019 ORIF distal radius fx, dorsal spanning plate, debridement of open fracture, carpal tunnel release TOTAL KNEE REPLACEMENT Right 02/2013 UNLIS LAPS PX HRNAP HERNIORRHAPHY HERNIOTOMY 01/28/2007 VENTRAL ALLERGIES Codeine, Nitroglycerin, Penicillins, Sulfa (Sulfonamide Antibiotics), and Zithromax [Azithromycin] MEDICATIONS potassium chloride ER (KLOR-CON) 20 mEq tablet Take 1 tablet by mouth two times a day. furosemide (LASIX) 40 mg tablet Take 1 tablet by mouth once daily. atenolol (TENORMIN) 25 mg tablet Take 1 tablet by mouth every other day. amLODIPine (NORVASC) 5 mg tablet Take 1 tablet by mouth once daily. atorvastatin (LIPITOR) 10 mg tablet Take 1 tablet by mouth daily at bedtime. For cholesterol. FLUoxetine (PROZAC) 10 mg capsule Take 1 capsule by mouth once daily. methotrexate 2.5 mg tablet Take 7 tablets by mouth one time a week. ascorbic acid, vitamin C, (VITAMIN C) 500 mg tablet Take 500 mg by mouth once daily. aspirin, enteric coated (ADULT LOW DOSE ASPIRIN) 81 mg EC tablet Take 1 tablet by mouth once daily. COMPOUNDED PRESCRIPTION CPAP supplies hydroxychloroquine 200 mg ORAL tablet Take by mouth twice daily. cholecalciferol(VITAMIN D-3 1,000 UNIT CHEWABLE TAB) Take one(1) tablet daily. FOLIC ACID 1 MG TAB Take 2 mg by mouth once daily. FAMILY HISTORY Problem Relation Age of Onset Cancer Mother liver Hypertension Mother Diabetes Mother Arthritis Mother Coronary Artery Disease Father of mi Diabetes Sister Blood Disease Sister leukemia Dementia Sister Diabetes Sister Coronary Artery Disease Sister Arthritis Sister Arthritis Sister Diabetes Brother Pancreatic Cancer Brother Coronary Artery Disease Brother Coronary Artery Disease Brother Diabetes Brother Colon Cancer Paternal Grandfather Cancer Maternal Uncle throat Social History Tobacco Use Smoking status: Former Packs/day: 1.50 Years: 36.00 Additional pack years: 0.00 Total pack years: 54.00 Types: Cigarettes Quit date: 09/22/2000 Years since quittin.9 Smokeless tobacco: Never Tobacco comments: Quit 2000 Vaping Use Vaping Use: Never used Substance Use Topics Alcohol use: Yes Comment: one glass of w (more content not included)... [facility] 09-02-2023 Note Patient Outreach ([place]) PORTILLOBRITTANY CONKLIN Rell ([id number]) 1945 F Date Time Provider Department 09/02/23 JESUS IYER During your visit today, we recorded the following information about you: Lucy Santana JANET 09/02/2023 11:42 AM Signed Called pt and she reports she's doing well. Declines appt at this time. She will call if she needs something sooner than her December appt. Allergies As of Date: 09/02/2023 Noted Allergy Reaction CODEINE 07/17/2005 Comments: vision loss NITROGLYCERIN 07/17/2005 Comments: decreased HR PENICILLINS 07/17/2005 2 - Rash 12 - Shortness of Breath SULFA (SULFONAMIDE ANTIBIOTICS) 07/17/2005 2 - Rash ZITHROMAX (AZITHROMYCIN) 09/04/2005 6 - Diarrhea Date Reviewed: 06/23/2023 Reviewed by: Sherin Contreras APRN.EMISSIONS ENGINEER - Fully Assessed Reason for Visit: Transition Of Care [4074] Prescriptions as of 09/02/2023 - potassium chloride ER (KLOR-CON) 20 mEq tablet Take 1 tablet by mouth two times a day. - furosemide (LASIX) 40 mg tablet Take 1 tablet by mouth once daily. - atenolol (TENORMIN) 25 mg tablet Take 1 tablet by mouth every other day. - amLODIPine (NORVASC) 5 mg tablet Take 1 tablet by mouth once daily. - atorvastatin (LIPITOR) 10 mg tablet Take 1 tablet by mouth daily at bedtime. For cholesterol. - FLUoxetine (PROZAC) 10 mg capsule Take 1 capsule by mouth once daily. - methotrexate 2.5 mg tablet Take 7 tablets by mouth one time a week. - ascorbic acid, vitamin C, (VITAMIN C) 500 mg tablet Take 500 mg by mouth once daily. - aspirin, enteric coated (ADULT LOW DOSE ASPIRIN) 81 mg EC tablet Take 1 tablet by mouth once daily. - COMPOUNDED PRESCRIPTION CPAP supplies - hydroxychloroquine 200 mg ORAL tablet Take by mouth twice daily. - cholecalciferol(VITAMIN D-3 1,000 UNIT CHEWABLE TAB) Take one(1) tablet daily. - FOLIC ACID 1 MG TAB Take 2 mg by mouth once daily. Problem List As Of Date 09/02/2023 Noted Resolved Type II or unspecified type diabetes mellitus w* 07/28/2014 HYPERLIPIDEMIA NEC/NOS [E78.5] 07/31/2015 Esophageal reflux [K21.9] 07/16/2017 Anxiety state [F41.1] Depressive disorder [F32.A] Osteoporosis [M81.0] PERS HX OF COLONIC MALIGNANCY [Z85.038] 07/17/2005 OVERWEIGHT [E66.9] 08/05/2006 01/25/2015 Malignant neoplasm of colon, unspecified site (* 11/07/2016 PAIN ABDOMEN( Periumbilical) [R10.33] 01/28/2007 01/25/2015 RECTAL BLEEDING (MELENA-578.1) [K62.5] 02/23/2007 11/07/2016 NEURALGIA INGUINAL [G57.90] 04/01/2007 11/07/2016 Rheumatoid arthritis of multiple sites with neg*12/21/2009 Obstructive sleep apnea [G47.33] 07/24/2010 11/07/2016 Hypertension [I10] 10/01/2010 Sleep apnea [G47.30] 10/01/2010 07/31/2015 Vitamin D deficiency [E55.9] 01/28/2011 SBO (small bowel obstruction) (HCC) [K56.609] 11/04/2012 11/07/2016 Partial small bowel obstruction (HCC) [K56.600] 03/12/2020 06/26/2020 DM type 2 (diabetes mellitus, type 2) (HCC) [E1*07/28/2014 11/20/2016 REY on CPAP [G47.33] 07/28/2014 Hyperlipidemia [E78.5] 07/31/2015 Type 2 diabetes mellitus without complication (*07/31/2015 11/20/2016 Rheumatoid arthritis involving both hands (HCC)*07/31/2015 11/07/2016 Abdominal discomfort [R10.9] 07/31/2015 11/07/2016 Generalized abdominal pain [R10.84] 08/07/2015 11/07/2016 Nausea [R11.0] 08/07/2015 11/07/2016 Abnormal mammogram [R92.8] 12/09/2016 08/18/2019 Stage 3a chronic kidney disease (HCC) [N18.31] 08/18/2019 Obesity, Class I, BMI 30-34.9 [E66.9] 08/18/2019 Fracture, Colles, left, open [S52.532B] 04/20/2020 03/19/2021 Abnormality of gait [R26.9] 07/13/2020 12/10/2022 Congestive heart failure, unspecified HF chroni* Dyspnea on exertion [R06.09] 03/19/2021 05/09/2022 Edema of both legs [R60.0] 03/19/2021 Sciatica, right side [M54.31] 09/26/2021 Hypertensive kidney disease with stage 3a chron*10/10/2022 Encounter Status:Closed by LUCY SANTANA LPN on 09/02/23 [facility] 09-02-2023 Note HNO ID: [id number] Author: Lucy Santana LPN Service: ? Author Type: ? Type: Progress Notes Filed: 09/02/2023 11:42 AM Note Text: Called pt and she reports she's doing well. Declines appt at this time. She will call if she needs something sooner than her Dora appt. [facility] 08-25-2023 Note HNO ID: [id number] Author: Sherif Malagon, RN Service: ? Author Type: Registered Nurse Type: Progress Notes Filed: 08/25/2023 4:06 PM Note Text: CDM Telephonic Outreach Provider Action/FYI :Routed updates to Dr. Iyer CDM: CHF, CKD Pt reports unchanged chronic Sob with exertion, Pt noted when stressed or significant exertion has felt pressure on her chest. Pt denies current CP, Sob or pressure on her chest, or other symptom changes or concerns. Instructed Pt to call [facility]/ PCP office today to discuss symptoms and to schedule Appt with Cardiology/ PCP. Pt noted she will call for an Appt. Pt reports seen by Ortho, Physical Therapy was ordered for back / leg issues Contacted for: Routine Telephonic Outreach Contact made with patient: Yes Patient identified by name and date of . Discussed care with patient Are you experiencing any new or worsening symptoms you need to talk about today? Yes Based on chip machine operator, the following disposition is advised: No symptoms or symptoms present, not severe. Routed to: No Action Needed LAURA Education Provided this Outreach: No Sherif Malagon RN August 25, 2023 3:26 PM [facility] 08-25-2023 Note Patient Outreach ([place]) BRITTANY PORTILLO ([id number]) 1945 F Date Time Provider Department 08/25/23 SHERIF MALAGONG During your visit today, we recorded the following information about you: Sherif Malagon RN 08/25/2023 4:06 PM Signed CDM Telephonic Outreach Provider Action/FYI :Routed updates to Dr. Iyer CDM: CHF, CKD Pt reports unchanged chronic Sob with exertion, Pt noted when stressed or significant exertion has felt pressure on her chest. Pt denies current CP, Sob or pressure on her chest, or other symptom changes or concerns. Instructed Pt to call [facility]/ PCP office today to discuss symptoms and to schedule Appt with Cardiology/ PCP. Pt noted she will call for an Appt. Pt reports seen by Ortho, Physical Therapy was ordered for back / leg issues Contacted for: Routine Telephonic Outreach Contact made with patient: Yes Patient identified by name and date of . Discussed care with patient Are you experiencing any new or worsening symptoms you need to talk about today? Yes Based on chip machine operator, the following disposition is advised: No symptoms or symptoms present, not severe. Routed to: No Action Needed LAURA Education Provided this Outreach: No Sherif Malagon RN August 25, 2023 3:26 PM Allergies As of Date: 08/25/2023 Noted Allergy Reaction CODEINE 07/17/2005 Comments: vision loss NITROGLYCERIN 07/17/2005 Comments: decreased HR PENICILLINS 07/17/2005 2 - Rash 12 - Shortness of Breath SULFA (SULFONAMIDE ANTIBIOTICS) 07/17/2005 2 - Rash ZITHROMAX (AZITHROMYCIN) 09/04/2005 6 - Diarrhea Date Reviewed: 06/23/2023 Reviewed by: Sherin Contreras APRN.EMISSIONS ENGINEER - Fully Assessed Reason for Visit: Community Monitoring Outreach [Other] Prescriptions as of 08/25/2023 - potassium chloride ER (KLOR-CON) 20 mEq tablet Take 1 tablet by mouth two times a day. - furosemide (LASIX) 40 mg tablet Take 1 tablet by mouth once daily. - atenolol (TENORMIN) 25 mg tablet Take 1 tablet by mouth every other day. - amLODIPine (NORVASC) 5 mg tablet Take 1 tablet by mouth once daily. - atorvastatin (LIPITOR) 10 mg tablet Take 1 tablet by mouth daily at bedtime. For cholesterol. - FLUoxetine (PROZAC) 10 mg capsule Take 1 capsule by mouth once daily. - methotrexate 2.5 mg tablet Take 7 tablets by mouth one time a week. - ascorbic acid, vitamin C, (VITAMIN C) 500 mg tablet Take 500 mg by mouth once daily. - aspirin, enteric coated (ADULT LOW DOSE ASPIRIN) 81 mg EC tablet Take 1 tablet by mouth once daily. - COMPOUNDED PRESCRIPTION CPAP supplies - hydroxychloroquine 200 mg ORAL tablet Take by mouth twice daily. - cholecalciferol(VITAMIN D-3 1,000 UNIT CHEWABLE TAB) Take one(1) tablet daily. - FOLIC ACID 1 MG TAB Take 2 mg by mouth once daily. Problem List As Of Date 08/25/2023 Noted Resolved Type II or unspecified type diabetes mellitus w* 07/28/2014 HYPERLIPIDEMIA NEC/NOS [E78.5] 07/31/2015 Esophageal reflux [K21.9] 07/16/2017 Anxiety state [F41.1] Depressive disorder [F32.A] Osteoporosis [M81.0] PERS HX OF COLONIC MALIGNANCY [Z85.038] 07/17/2005 OVERWEIGHT [E66.9] 08/05/2006 01/25/2015 Malignant neoplasm of colon, unspecified site (* 11/07/2016 PAIN ABDOMEN( Periumbilical) [R10.33] 01/28/2007 01/25/2015 RECTAL BLEEDING (MELENA-578.1) [K62.5] 02/23/2007 11/07/2016 NEURALGIA INGUINAL [G57.90] 04/01/2007 11/07/2016 Rheumatoid arthritis of multiple sites with neg*12/21/2009 Obstructive sleep apnea [G47.33] 07/24/2010 11/07/2016 Hypertension [I10] 10/01/2010 Sleep apnea [G47.30] 10/01/2010 07/31/2015 Vitamin D deficiency [E55.9] 01/28/2011 SBO (small bowel obstruction) (HCC) [K56.609] 11/04/2012 11/07/2016 Partial small bowel obstruction (HCC) [K56.600] 03/12/2020 06/26/2020 DM type 2 (diabetes mellitus, type 2) (HCC) [E1*07/28/2014 11/20/2016 REY on CPAP [G47.33] 07/28/2014 Hyperlipidemia [E78.5] 07/31/2015 Type 2 diabetes mellitus without complication (*07/31/2015 11/20/2016 Rheumatoid arthritis involving both hands (HCC)*07/31/2015 11/07/2016 Abdominal discomfort [R10.9] 07/31/2015 11/07/2016 Generalized abdominal pain [R10.84] 08/07/2015 11/07/2016 Nausea [R11.0] 08/07/2015 11/07/2016 Abnormal mammogram [R92.8] 12/09/2016 08/18/2019 Stage 3a chronic kidney disease (HCC) [N18.31] 08/18/2019 Obesity, Class I, BMI 30-34.9 [E66.9] 08/18/2019 Fracture, Colles, left, open [S52.532B] 04/20/2020 03/19/2021 Abnormality of gait [R26.9] 07/13/2020 12/10/2022 Congestive heart failure, unspecified HF chroni* Dyspnea on exertion [R06.09] 03/19/2021 05/09/2022 Edema of both legs [R60.0] 03/19/2021 Sciatica, right side [M54.31] 09/26/2021 Hypertensive kidney disease with stage 3a chron*10/10/2022 Encounter Status:Closed by SHERIF MALAGON on 08/25/23 [facility] 07-23-2023 Note HNO ID: [id number] Author: Sherif Malagon, RN Service: ? Author Type: Registered Nurse Type: Progress Notes Filed: 07/23/2023 5:30 PM Note Text: CDM Telephonic Outreach Provider Action/FYI CDM: CKD Pt notes she is tired, denies symptom changes, concerns or needs Contacted for: Routine Telephonic Outreach Contact made with patient: Yes Patient identified by name and date of . Discussed care with patient Are you experiencing any new or worsening symptoms you need to talk about today? No Disease Specific Do you check your blood pressure at home? Yes, Enter readings: Not available Do you have new or worsening shortness of breath with activity? No Do you feel like you are dehydrated for any reason, including not being able to eat or drink normally, or having less urine/much darker urine than normal for you? No Do you check your daily weight at home? Yes, Have you noticed a sudden gain in weight greater than three pounds in a day or three pounds in a week? No Based on chip machine operator, the following disposition is advised: No symptoms or symptoms present, not severe. Routed to: No Action Needed LAURA Education Provided this Outreach: No Sherif Malagon RN July 23, 2023 5:29 PM [facility] 07-23-2023 History of Present illness Narrative CDM Telephonic Outreach Provider Rios/ATNWON CDM: CKD Pt notes she is tired, denies symptom changes, concerns or needs Contacted for: Routine Telephonic Outreach Contact made with patient: Yes Patient identified by name and date of . Discussed care with patient Are you experiencing any new or worsening symptoms you need to talk about today? No Disease Specific Do you check your blood pressure at home? Yes, Enter readings: Not available Do you have new or worsening shortness of breath with activity? No Do you feel like you are dehydrated for any reason, including not being able to eat or drink normally, or having less urine/much darker urine than normal for you? No Do you check your daily weight at home? Yes, Have you noticed a sudden gain in weight greater than three pounds in a day or three pounds in a week? No Based on chip machine operator, the following disposition is advised: No symptoms or symptoms present, not severe. Routed to: No Action Needed LAURA Education Provided this Outreach: No Sherif Malagon RN July 23, 2023 5:29 PM documented in this encounter [facility] 07-23-2023 Note Patient Outreach ([facility] [place]) BRITTANY PORTILLO ([id number]) 1945 F Date Time Provider Department 07/23/23 SHERIF MALAGON During your visit today, we recorded the following information about you: Sherif Malagon RN 07/23/2023 5:30 PM Signed CDM Telephonic Outreach Provider Action/FYI CDM: CKD Pt notes she is tired, denies symptom changes, concerns or needs Contacted for: Routine Telephonic Outreach Contact made with patient: Yes Patient identified by name and date of . Discussed care with patient Are you experiencing any new or worsening symptoms you need to talk about today? No Disease Specific Do you check your blood pressure at home? Yes, Enter readings: Not available Do you have new or worsening shortness of breath with activity? No Do you feel like you are dehydrated for any reason, including not being able to eat or drink normally, or having less urine/much darker urine than normal for you? No Do you check your daily weight at home? Yes, Have you noticed a sudden gain in weight greater than three pounds in a day or three pounds in a week? No Based on chip machine operator, the following disposition is advised: No symptoms or symptoms present, not severe. Routed to: No Action Needed LAURA Education Provided this Outreach: No Sherif Malagon RN July 23, 2023 5:29 PM Allergies As of Date: 07/23/2023 Noted Allergy Reaction CODEINE 07/17/2005 Comments: vision loss NITROGLYCERIN 07/17/2005 Comments: decreased HR PENICILLINS 07/17/2005 2 - Rash 12 - Shortness of Breath SULFA (SULFONAMIDE ANTIBIOTICS) 07/17/2005 2 - Rash ZITHROMAX (AZITHROMYCIN) 09/04/2005 6 - Diarrhea Date Reviewed: 06/23/2023 Reviewed by: Sherin Contreras APRN.EMISSIONS ENGINEER - Fully Assessed Reason for Visit: Community Monitoring Outreach [Other] Prescriptions as of 07/23/2023 - potassium chloride ER (KLOR-CON) 20 mEq tablet Take 1 tablet by mouth two times a day. - furosemide (LASIX) 40 mg tablet Take 1 tablet by mouth once daily. - atenolol (TENORMIN) 25 mg tablet Take 1 tablet by mouth every other day. - amLODIPine (NORVASC) 5 mg tablet Take 1 tablet by mouth once daily. - atorvastatin (LIPITOR) 10 mg tablet Take 1 tablet by mouth daily at bedtime. For cholesterol. - FLUoxetine (PROZAC) 10 mg capsule Take 1 capsule by mouth once daily. - methotrexate 2.5 mg tablet Take 7 tablets by mouth one time a week. - ascorbic acid, vitamin C, (VITAMIN C) 500 mg tablet Take 500 mg by mouth once daily. - aspirin, enteric coated (ADULT LOW DOSE ASPIRIN) 81 mg EC tablet Take 1 tablet by mouth once daily. - COMPOUNDED PRESCRIPTION CPAP supplies - hydroxychloroquine 200 mg ORAL tablet Take by mouth twice daily. - cholecalciferol(VITAMIN D-3 1,000 UNIT CHEWABLE TAB) Take one(1) tablet daily. - FOLIC ACID 1 MG TAB Take 2 mg by mouth once daily. Problem List As Of Date 07/23/2023 Noted Resolved Type II or unspecified type diabetes mellitus w* 07/28/2014 HYPERLIPIDEMIA NEC/NOS [E78.5] 07/31/2015 Esophageal reflux [K21.9] 07/16/2017 Anxiety state [F41.1] Depressive disorder [F32.A] Osteoporosis [M81.0] PERS HX OF COLONIC MALIGNANCY [Z85.038] 07/17/2005 OVERWEIGHT [E66.9] 08/05/2006 01/25/2015 Malignant neoplasm of colon, unspecified site (* 11/07/2016 PAIN ABDOMEN( Periumbilical) [R10.33] 01/28/2007 01/25/2015 RECTAL BLEEDING (MELENA-578.1) [K62.5] 02/23/2007 11/07/2016 NEURALGIA INGUINAL [G57.90] 04/01/2007 11/07/2016 Rheumatoid arthritis of multiple sites with neg*12/21/2009 Obstructive sleep apnea [G47.33] 07/24/2010 11/07/2016 Hypertension [I10] 10/01/2010 Sleep apnea [G47.30] 10/01/2010 07/31/2015 Vitamin D deficiency [E55.9] 01/28/2011 SBO (small bowel obstruction) (HCC) [K56.609] 11/04/2012 11/07/2016 Partial small bowel obstruction (HCC) [K56.600] 03/12/2020 06/26/2020 DM type 2 (diabetes mellitus, type 2) (HCC) [E1*07/28/2014 11/20/2016 REY on CPAP [G47.33] 07/28/2014 Hyperlipidemia [E78.5] 07/31/2015 Type 2 diabetes mellitus without complication (*07/31/2015 11/20/2016 Rheumatoid arthritis involving both hands (HCC)*07/31/2015 11/07/2016 Abdominal discomfort [R10.9] 07/31/2015 11/07/2016 Generalized abdominal pain [R10.84] 08/07/2015 11/07/2016 Nausea [R11.0] 08/07/2015 11/07/2016 Abnormal mammogram [R92.8] 12/09/2016 08/18/2019 Stage 3a chronic kidney disease (HCC) [N18.31] 08/18/2019 Obesity, Class I, BMI 30-34.9 [E66.9] 08/18/2019 Fracture, Colles, left, open [S52.532B] 04/20/2020 03/19/2021 Abnormality of gait [R26.9] 07/13/2020 12/10/2022 Congestive heart failure, unspecified HF chroni* Dyspnea on exertion [R06.09] 03/19/2021 05/09/2022 Edema of both legs [R60.0] 03/19/2021 Sciatica, right side [M54.31] 09/26/2021 Hypertensive kidney disease with stage 3a chron*10/10/2022 Encounter Status:Closed by SHERIF MALAGON on (more content not included)... [facility] 07-15-2023 Note HNO ID: [id number] Author: Sherif Malagon RN Service: ? Author Type: Registered Nurse Type: Progress Notes Filed: 07/16/2023 12:32 PM Note Text: CDM Telephonic Outreach Provider Action/FYI CDM: CKD Called Pt to verify symptoms and needs, line was busy, unable to leave a message. Contacted for: Routine Telephonic Outreach Contact made with patient: No, unable to leave message. Will reattempt call Sherif Malagon RN July 15, 2023 1:26 PM [facility] 07-15-2023 Note Patient Outreach (AM [facility]) BRITTANY PORTILLO ([id number]) 1945 F Date Time Provider Department 07/15/23 SHERIF MALAGONG During your visit today, we recorded the following information about you: Sherif Malagon RN 07/16/2023 12:32 PM Signed CDM Telephonic Outreach Provider Action/FYI CDM: CKD Called Pt to verify symptoms and needs, line was busy, unable to leave a message. Contacted for: Routine Telephonic Outreach Contact made with patient: No, unable to leave message. Will reattempt call Sherif Malagon RN July 15, 2023 1:26 PM Allergies As of Date: 07/15/2023 Noted Allergy Reaction CODEINE 07/17/2005 Comments: vision loss NITROGLYCERIN 07/17/2005 Comments: decreased HR PENICILLINS 07/17/2005 2 - Rash 12 - Shortness of Breath SULFA (SULFONAMIDE ANTIBIOTICS) 07/17/2005 2 - Rash ZITHROMAX (AZITHROMYCIN) 09/04/2005 6 - Diarrhea Date Reviewed: 06/23/2023 Reviewed by: Sherin Contreras APRN.EMISSIONS ENGINEER - Fully Assessed Reason for Visit: Community Monitoring Outreach [Other] Prescriptions as of 07/16/2023 - potassium chloride ER (KLOR-CON) 20 mEq tablet Take 1 tablet by mouth two times a day. - furosemide (LASIX) 40 mg tablet Take 1 tablet by mouth once daily. - atenolol (TENORMIN) 25 mg tablet Take 1 tablet by mouth every other day. - amLODIPine (NORVASC) 5 mg tablet Take 1 tablet by mouth once daily. - atorvastatin (LIPITOR) 10 mg tablet Take 1 tablet by mouth daily at bedtime. For cholesterol. - FLUoxetine (PROZAC) 10 mg capsule Take 1 capsule by mouth once daily. - methotrexate 2.5 mg tablet Take 7 tablets by mouth one time a week. - ascorbic acid, vitamin C, (VITAMIN C) 500 mg tablet Take 500 mg by mouth once daily. - aspirin, enteric coated (ADULT LOW DOSE ASPIRIN) 81 mg EC tablet Take 1 tablet by mouth once daily. - COMPOUNDED PRESCRIPTION CPAP supplies - hydroxychloroquine 200 mg ORAL tablet Take by mouth twice daily. - cholecalciferol(VITAMIN D-3 1,000 UNIT CHEWABLE TAB) Take one(1) tablet daily. - FOLIC ACID 1 MG TAB Take 2 mg by mouth once daily. Problem List As Of Date 07/15/2023 Noted Resolved Type II or unspecified type diabetes mellitus w* 07/28/2014 HYPERLIPIDEMIA NEC/NOS [E78.5] 07/31/2015 Esophageal reflux [K21.9] 07/16/2017 Anxiety state [F41.1] Depressive disorder [F32.A] Osteoporosis [M81.0] PERS HX OF COLONIC MALIGNANCY [Z85.038] 07/17/2005 OVERWEIGHT [E66.9] 08/05/2006 01/25/2015 Malignant neoplasm of colon, unspecified site (* 11/07/2016 PAIN ABDOMEN( Periumbilical) [R10.33] 01/28/2007 01/25/2015 RECTAL BLEEDING (MELENA-578.1) [K62.5] 02/23/2007 11/07/2016 NEURALGIA INGUINAL [G57.90] 04/01/2007 11/07/2016 Rheumatoid arthritis of multiple sites with neg*12/21/2009 Obstructive sleep apnea [G47.33] 07/24/2010 11/07/2016 Hypertension [I10] 10/01/2010 Sleep apnea [G47.30] 10/01/2010 07/31/2015 Vitamin D deficiency [E55.9] 01/28/2011 SBO (small bowel obstruction) (HCC) [K56.609] 11/04/2012 11/07/2016 Partial small bowel obstruction (HCC) [K56.600] 03/12/2020 06/26/2020 DM type 2 (diabetes mellitus, type 2) (HCC) [E1*07/28/2014 11/20/2016 REY on CPAP [G47.33] 07/28/2014 Hyperlipidemia [E78.5] 07/31/2015 Type 2 diabetes mellitus without complication (*07/31/2015 11/20/2016 Rheumatoid arthritis involving both hands (HCC)*07/31/2015 11/07/2016 Abdominal discomfort [R10.9] 07/31/2015 11/07/2016 Generalized abdominal pain [R10.84] 08/07/2015 11/07/2016 Nausea [R11.0] 08/07/2015 11/07/2016 Abnormal mammogram [R92.8] 12/09/2016 08/18/2019 Stage 3a chronic kidney disease (HCC) [N18.31] 08/18/2019 Obesity, Class I, BMI 30-34.9 [E66.9] 08/18/2019 Fracture, Colles, left, open [S52.532B] 04/20/2020 03/19/2021 Abnormality of gait [R26.9] 07/13/2020 12/10/2022 Congestive heart failure, unspecified HF chroni* Dyspnea on exertion [R06.09] 03/19/2021 05/09/2022 Edema of both legs [R60.0] 03/19/2021 Sciatica, right side [M54.31] 09/26/2021 Hypertensive kidney disease with stage 3a chron*10/10/2022 Encounter Status:Closed by SHERIF MALAGON on 07/16/23 [facility] 07-15-2023 History of Present illness Narrative CDM Telephonic Outreach Provider Action/FYI CDM: CKD Called Pt to verify symptoms and needs, line was busy, unable to leave a message. Contacted for: Routine Telephonic Outreach Contact made with patient: No, unable to leave message. Will reattempt call Sherif Malagon RN July 15, 2023 1:26 PM documented in this encounter [facility] 07-14-2023 Note HNO ID: [id number] Author: Sherif Malagon RN Service: ? Author Type: Registered Nurse Type: Progress Notes Filed: 07/15/2023 1:19 PM Note Text: CDM Telephonic Outreach Provider Action/FYI Spk with Pt she requested a call back tomorrow Contacted for: Routine Telephonic Outreach Contact made with patient: Yes Patient identified by name and date of . Discussed care with patient Are you experiencing any new or worsening symptoms you need to talk about today? No Sherif Malagon RN July 14, 2023 5:55 PM [facility] 07-14-2023 History of Present illness Narrative CDM Telephonic Outreach Provider Action/FYI Spk with Pt she requested a call back tomorrow Contacted for: Routine Telephonic Outreach Contact made with patient: Yes Patient identified by name and date of . Discussed care with patient Are you experiencing any new or worsening symptoms you need to talk about today? No Sherif Malagon RN July 14, 2023 5:55 PM CDM Telephonic Outreach Provider Action/FYI CDM: CKD Called Pt to verify symptoms and needs, line was busy, unable to leave a message. Contacted for: Routine Telephonic Outreach Contact made with patient: No, unable to leave message. Will reattempt call Sherif Malagon RN July 10, 2023 6:20 PM CDM Telephonic Outreach Provider Action/FYI CDM: CKD Called Pt to verify symptoms and needs, line was busy, unable to leave a message. Contacted for: Routine Telephonic Outreach Contact made with patient: No, unable to leave message. Will reattempt call Sherif Malagon RN July 08, 2023 11:44 AM documented in this encounter [facility] 07-10-2023 Note HNO ID: [id number] Author: Sherif Malagon RN Service: ? Author Type: Registered Nurse Type: Progress Notes Filed: 07/15/2023 1:19 PM Note Text: CDM Telephonic Outreach Provider Action/FYI CDM: CKD Called Pt to verify symptoms and needs, line was busy, unable to leave a message. Contacted for: Routine Telephonic Outreach Contact made with patient: No, unable to leave message. Will reattempt call Sherif Malagon RN July 10, 2023 6:20 PM [facility] 07-08-2023 Note Patient Outreach (AM [facility]) BRITTANY PORTILLO ([id number]) 1945 F Date Time Provider Department 07/08/23 SHERIF MALAGONObinna During your visit today, we recorded the following information about you: Sherif Malagon RN 07/15/2023 1:19 PM Signed CD Telephonic Outreach Provider Action/FYI CDM: CKD Called Pt to verify symptoms and needs, line was busy, unable to leave a message. Contacted for: Routine Telephonic Outreach Contact made with patient: No, unable to leave message. Will reattempt call Sherif Malagon RN July 08, 2023 11:44 AM Sherif Malagon RN 07/15/2023 1:19 PM Signed CD Telephonic Outreach Provider Action/FYI CDM: CKD Called Pt to verify symptoms and needs, line was busy, unable to leave a message. Contacted for: Routine Telephonic Outreach Contact made with patient: No, unable to leave message. Will reattempt call Sherif Malagon RN July 10, 2023 6:20 PM Sherif Malagon RN 07/15/2023 1:19 PM Signed [facility] Telephonic Outreach Provider Action/FYI Spk with Pt she requested a call back tomorrow Contacted for: Routine Telephonic Outreach Contact made with patient: Yes Patient identified by name and date of . Discussed care with patient Are you experiencing any new or worsening symptoms you need to talk about today? No Sherif Malagon RN July 14, 2023 5:55 PM Allergies As of Date: 07/08/2023 Noted Allergy Reaction CODEINE 07/17/2005 Comments: vision loss NITROGLYCERIN 07/17/2005 Comments: decreased HR PENICILLINS 07/17/2005 2 - Rash 12 - Shortness of Breath SULFA (SULFONAMIDE ANTIBIOTICS) 07/17/2005 2 - Rash ZITHROMAX (AZITHROMYCIN) 09/04/2005 6 - Diarrhea Date Reviewed: 06/23/2023 Reviewed by: Sherin Contreras APRN.EMISSIONS ENGINEER - Fully Assessed Reason for Visit: Community Monitoring Outreach [Other] Prescriptions as of 07/15/2023 - potassium chloride ER (KLOR-CON) 20 mEq tablet Take 1 tablet by mouth two times a day. - furosemide (LASIX) 40 mg tablet Take 1 tablet by mouth once daily. - atenolol (TENORMIN) 25 mg tablet Take 1 tablet by mouth every other day. - amLODIPine (NORVASC) 5 mg tablet Take 1 tablet by mouth once daily. - atorvastatin (LIPITOR) 10 mg tablet Take 1 tablet by mouth daily at bedtime. For cholesterol. - FLUoxetine (PROZAC) 10 mg capsule Take 1 capsule by mouth once daily. - methotrexate 2.5 mg tablet Take 7 tablets by mouth one time a week. - ascorbic acid, vitamin C, (VITAMIN C) 500 mg tablet Take 500 mg by mouth once daily. - aspirin, enteric coated (ADULT LOW DOSE ASPIRIN) 81 mg EC tablet Take 1 tablet by mouth once daily. - COMPOUNDED PRESCRIPTION CPAP supplies - hydroxychloroquine 200 mg ORAL tablet Take by mouth twice daily. - cholecalciferol(VITAMIN D-3 1,000 UNIT CHEWABLE TAB) Take one(1) tablet daily. - FOLIC ACID 1 MG TAB Take 2 mg by mouth once daily. Problem List As Of Date 07/08/2023 Noted Resolved Type II or unspecified type diabetes mellitus w* 07/28/2014 HYPERLIPIDEMIA NEC/NOS [E78.5] 07/31/2015 Esophageal reflux [K21.9] 07/16/2017 Anxiety state [F41.1] Depressive disorder [F32.A] Osteoporosis [M81.0] PERS HX OF COLONIC MALIGNANCY [Z85.038] 07/17/2005 OVERWEIGHT [E66.9] 08/05/2006 01/25/2015 Malignant neoplasm of colon, unspecified site (* 11/07/2016 PAIN ABDOMEN( Periumbilical) [R10.33] 01/28/2007 01/25/2015 RECTAL BLEEDING (MELENA-578.1) [K62.5] 02/23/2007 11/07/2016 NEURALGIA INGUINAL [G57.90] 04/01/2007 11/07/2016 Rheumatoid arthritis of multiple sites with neg*12/21/2009 Obstructive sleep apnea [G47.33] 07/24/2010 11/07/2016 Hypertension [I10] 10/01/2010 Sleep apnea [G47.30] 10/01/2010 07/31/2015 Vitamin D deficiency [E55.9] 01/28/2011 SBO (small bowel obstruction) ([facility]) [K56.609] 11/04/2012 11/07/2016 Partial small bowel obstruction (HCC) [K56.600] 03/12/2020 06/26/2020 DM type 2 (diabetes mellitus, type 2) ([facility]) [E1*07/28/2014 11/20/2016 REY on CPAP [G47.33] 07/28/2014 Hyperlipidemia [E78.5] 07/31/2015 Type 2 diabetes mellitus without complication (*07/31/2015 11/20/2016 Rheumatoid arthritis involving both hands (HCC)*07/31/2015 11/07/2016 Abdominal discomfort [R10.9] 07/31/2015 11/07/2016 Generalized abdominal pain [R10.84] 08/07/2015 11/07/2016 Nausea [R11.0] 08/07/2015 11/07/2016 Abnormal mammogram [R92.8] 12/09/2016 08/18/2019 Stage 3a chronic kidney disease (HCC) [N18.31] 08/18/2019 Obesity, Class I, BMI 30-34.9 [E66.9] 08/18/2019 Fracture, Colles, left, open [S52.532B] 04/20/2020 03/19/2021 Abnormality of gait [R26.9] 07/13/2020 12/10/2022 Congestive heart failure, unspecified HF chroni* Dyspnea on exertion [R06.09] 03/19/2021 05/09/2022 Edema of both legs [R60.0] 03/19/2021 Sciatica, right side [M54.31] 09/26/2021 Hypertensive kidney disease with stage 3a chron*10/10/2022 Encounter Status (more content not included)... [facility] 07-08-2023 Note HNO ID: [id number] Author: Sherif Malagon RN Service: ? Author Type: Registered Nurse Type: Progress Notes Filed: 07/15/2023 1:19 PM Note Text: CDM Telephonic Outreach Provider Action/FYI CDM: CKD Called Pt to verify symptoms and needs, line was busy, unable to leave a message. Contacted for: Routine Telephonic Outreach Contact made with patient: No, unable to leave message. Will reattempt call Sherif Malagon RN July 08, 2023 11:44 AM [facility] 06-23-2023 Note HNO ID: [id number] Author: Sherin Contreras APRN.DORIAN Service: ? Author Type: Nurse Practitioner Type: Progress Notes Filed: 06/23/2023 1:10 PM Note Text: CC: Patient presents with: Follow Up HPI Brittany Portillo is a 78 year old female who presents today for above. Patient was seen in January for hypertension follow-up, she had been started on Atenolol 25 mg 6 weeks prior. Patient reports fatigue, malaise, and SOB. EKG showed sinus bradycardia, otherwise normal. Patient's home BP readings had been low in the 100's/60's, atenolol was decreased to every other day. She was supposed to follow-up in 6 weeks but forgot the appointment. Today she reports symptoms have resolved and doing much better. Home BP's in the 120's/70's. Taking all medications as prescribed without side effects. Wearing CPAP nightly. Anxiety and depression are controlled with Prozac. Review of Systems Constitutional: Negative for chills, fatigue, fever and unexpected weight change. Respiratory: Negative for cough, chest tightness, shortness of breath and wheezing. Cardiovascular: Negative for chest pain, palpitations and leg swelling. History of CHF. Denies PND and orthopnea PAST MEDICAL HISTORY Diagnosis Date Anxiety state Bowel obstruction (HCC) 2021 Congestive heart failure (HCC) 12/11/2020 COVID-19 04/30/2022 Home test+ with symptoms Depressive disorder Esophageal reflux GERD Fracture, Colles, left, open 04/20/2020 Hyperlipidemia 07/31/2015 Hypertension Internal hemorrhoids with other complication Malignant neoplasm of colon, unspecified site 2001 colo-rectal cancer Obesity, unspecified REY on CPAP 07/28/2014 Osteoporosis, unspecified Partial small bowel obstruction (HCC) 10/03/2021 and 03/12/2020 Polymyalgia rheumatica (HCC) Rheumatoid arthritis 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) 12/21/2009 Dr. Sarabia. Small bowel obstruction, partial (HCC) 05/05/202205/2011; 10/26/12; 09/2021. Recurrent. Stage 3a chronic kidney disease (HCC) 08/18/2019 Type II or unspecified type diabetes mellitus without mention of complication, not stated as uncontrolled 2000 PAST SURGICAL HISTORY Procedure Laterality Date BREAST BIOPSY NEEDLE LEFT Left 04/21/2019 benign BX BREAST W/DEVICE 1ST LESION STEREOTACTIC GUID Left 12/16/2016 DELIVERY ONLY 1982 , low cervical. 3 times (69,71,82) COLECTOMY PARTIAL W/ANASTOMOSIS 03/15/2002 low ant. resection with anastomosis of high rectal cancer. COLONOSCOPY FLX DX W/COLLJ SPEC WHEN PFRMD 2001 Colonoscopy COLONOSCOPY FLX DX W/COLLJ SPEC WHEN PFRMD 10/11/2005 COLONOSCOPY FLX DX W/COLLJ SPEC WHEN PFRMD 03/13/2007 Patent low anastomosis, hemorrhoids COLONOSCOPY FLX DX W/COLLJ SPEC WHEN PFRMD 02/08/2011 COLONOSCOPY FLX DX W/COLLJ SPEC WHEN PFRMD 11/08/2015 EGD TRANSORAL BIOPSY SINGLE/MULTIPLE 09/08/2015 ENTEROLSS FRING INTSTINAL ADHESION SPX 01/28/2007 HAND TENDON AMINTA RECONSTRUCTION Left 04/21/2020 A1 aminta release of stenosis tenosynovitis; wrist hardware removal PAST SURGICAL HISTORY OF Right 07/28/2020 Right carpal tunnel repair REPAIR WRIST FRACTURE Left 12/24/2019 ORIF distal radius fx, dorsal spanning plate, debridement of open fracture, carpal tunnel release TOTAL KNEE REPLACEMENT Right 02/2013 UNLIS LAPS PX HRNAP HERNIORRHAPHY HERNIOTOMY 01/28/2007 VENTRAL ALLERGIES Codeine, Nitroglycerin, Penicillins, Sulfa (Sulfonamide Antibiotics), and Zithromax [Azithromycin] MEDICATIONS potassium chloride ER (KLOR-CON) 20 mEq tablet Take 1 tablet by mouth two times a day. furosemide (LASIX) 40 mg tablet Take 1 tablet by mouth once daily. atenolol (TENORMIN) 25 mg tablet Take 1 tablet by mouth every other day. amLODIPine (NORVASC) 5 mg tablet Take 1 tablet by mouth once daily. atorvastatin (LIPITOR) 10 mg tablet Take 1 tablet by mouth daily at bedtime. For cholesterol. FLUoxetine (PROZAC) 10 mg capsule Take 1 capsule by mouth once daily. methotrexate 2.5 mg tablet Take 7 tablets by mouth one time a week. ascorbic acid, vitamin C, (VITAMIN C) 500 mg tablet Take 500 mg by mouth once daily. aspirin, enteric coated (ADULT LOW DOSE ASPIRIN) 81 mg EC tablet Take 1 tablet by mouth once daily. COMPOUNDED PRESCRIPTION CPAP supplies hydroxychloroquine 200 mg ORAL tablet Take by mouth twice daily. cholecalciferol(VITAMIN D-3 1,000 UNIT CHEWABLE TAB) Take one(1) tablet daily. FOLIC ACID 1 MG TAB Take 2 mg by mouth once daily. FAMILY HISTORY Problem Relation Age of Onset Cancer Mother liver Hypertension Mother Diabetes Mother Arthritis Mother Coronary Artery Disease Father of mi Diabetes Sister Blood Disease Sister leukemia Dementia Sister Diabetes Sister Coronary Artery Disease Sister Arthritis Sister Arthritis Sister Diabetes Brother Pancreatic Cancer Brother Coronary Artery Disease Brother Coronary Artery Disease Brother Diabetes Brother Colon Cancer Paternal (more content not included)... [facility] 06-23-2023 Instructions Sherin Contreras APRN.CNP - 06/23/2023 12:52 PM EDT Recommend RSV vaccine along with updated COVID booster documented in this encounter [facility] 06-23-2023 History of Present illness Narrative CC: Patient presents with: Follow Up HPI Brittany Portillo is a 78 year old female who presents today for above. Patient was seen in January for hypertension follow-up, she had been started on Atenolol 25 mg 6 weeks prior. Patient reports fatigue, malaise, and SOB. EKG showed sinus bradycardia, otherwise normal. Patient's home BP readings had been low in the 100's/60's, atenolol was decreased to every other day. She was supposed to follow-up in 6 weeks but forgot the appointment. Today she reports symptoms have resolved and doing much better. Home BP's in the 120's/70's. Taking all medications as prescribed without side effects. Wearing CPAP nightly. Anxiety and depression are controlled with Prozac. Review of Systems Constitutional: Negative for chills, fatigue, fever and unexpected weight change. Respiratory: Negative for cough, chest tightness, shortness of breath and wheezing. Cardiovascular: Negative for chest pain, palpitations and leg swelling. History of CHF. Denies PND and orthopnea PAST MEDICAL HISTORY Diagnosis Date Anxiety state Bowel obstruction (HCC) 2021 Congestive heart failure (HCC) 12/11/2020 COVID-19 04/30/2022 Home test+ with symptoms Depressive disorder Esophageal reflux GERD Fracture, Colles, left, open 04/20/2020 Hyperlipidemia 07/31/2015 Hypertension Internal hemorrhoids with other complication Malignant neoplasm of colon, unspecified site 2001 colo-rectal cancer Obesity, unspecified REY on CPAP 07/28/2014 Osteoporosis, unspecified Partial small bowel obstruction (HCC) 10/03/2021 and 03/12/2020 Polymyalgia rheumatica (HCC) Rheumatoid arthritis 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) 12/21/2009 Dr. Sarabia. Small bowel obstruction, partial (HCC) 05/05/202205/2011; 10/26/12; 09/2021. Recurrent. Stage 3a chronic kidney disease (HCC) 08/18/2019 Type II or unspecified type diabetes mellitus without mention of complication, not stated as uncontrolled 2000 PAST SURGICAL HISTORY Procedure Laterality Date BREAST BIOPSY NEEDLE LEFT Left 04/21/2019 benign BX BREAST W/DEVICE 1ST LESION STEREOTACTIC GUID Left 12/16/2016 DELIVERY ONLY 1981 , low cervical. 3 times (69,71,82) COLECTOMY PARTIAL W/ANASTOMOSIS 03/15/2002 low ant. resection with anastomosis of high rectal cancer. COLONOSCOPY FLX DX W/COLLJ SPEC WHEN PFRMD 2001 Colonoscopy COLONOSCOPY FLX DX W/COLLJ SPEC WHEN PFRMD 10/11/2005 COLONOSCOPY FLX DX W/COLLJ SPEC WHEN PFRMD 03/13/2007 Patent low anastomosis, hemorrhoids COLONOSCOPY FLX DX W/COLLJ SPEC WHEN PFRMD 02/08/2011 COLONOSCOPY FLX DX W/COLLJ SPEC WHEN PFRMD 11/08/2015 EGD TRANSORAL BIOPSY SINGLE/MULTIPLE 09/08/2015 ENTEROLSS FRING INTSTINAL ADHESION SPX 01/28/2007 HAND TENDON AMINTA RECONSTRUCTION Left 04/21/2020 A1 aminta release of stenosis tenosynovitis; wrist hardware removal PAST SURGICAL HISTORY OF Right 07/28/2020 Right carpal tunnel repair REPAIR WRIST FRACTURE Left 12/24/2019 ORIF distal radius fx, dorsal spanning plate, debridement of open fracture, carpal tunnel release TOTAL KNEE REPLACEMENT Right 02/2013 UNLIS LAPS PX HRNAP HERNIORRHAPHY HERNIOTOMY 01/28/2007 VENTRAL ALLERGIES Codeine, Nitroglycerin, Penicillins, Sulfa (Sulfonamide Antibiotics), and Zithromax [Azithromycin] MEDICATIONS potassium chloride ER (KLOR-CON) 20 mEq tablet Take 1 tablet by mouth two times a day. furosemide (LASIX) 40 mg tablet Take 1 tablet by mouth once daily. atenolol (TENORMIN) 25 mg tablet Take 1 tablet by mouth every other day. amLODIPine (NORVASC) 5 mg tablet Take 1 tablet by mouth once daily. atorvastatin (LIPITOR) 10 mg tablet Take 1 tablet by mouth daily at bedtime. For cholesterol. FLUoxetine (PROZAC) 10 mg capsule Take 1 capsule by mouth once daily. methotrexate 2.5 mg tablet Take 7 tablets by mouth one time a week. ascorbic acid, vitamin C, (VITAMIN C) 500 mg tablet Take 500 mg by mouth once daily. aspirin, enteric coated (ADULT LOW DOSE ASPIRIN) 81 mg EC tablet Take 1 tablet by mouth once daily. COMPOUNDED PRESCRIPTION CPAP supplies hydroxychloroquine 200 mg ORAL tablet Take by mouth twice daily. cholecalciferol(VITAMIN D-3 1,000 UNIT CHEWABLE TAB) Take one(1) tablet daily. FOLIC ACID 1 MG TAB Take 2 mg by mouth once daily. FAMILY HISTORY Problem Relation Age of Onset Cancer Mother liver Hypertension Mother Diabetes Mother Arthritis Mother Coronary Artery Disease Father of mi Diabetes Sister Blood Disease Sister leukemia Dementia Sister Diabetes Sister Coronary Artery Disease Sister Arthritis Sister Arthritis Sister Diabetes Brother Pancreatic Cancer Brother Coronary Artery Disease Brother Coronary Artery Disease Brother Diabetes Brother Colon Cancer Paternal Grandfather Cancer Maternal Uncle throat Social History Tobacco Use Smoking status: Former Packs/day: 1.50 Years: 36.00 Additional pack years: 0.00 Total pack years: 54.00 Types: Cigarettes Quit date: 09/22/2000 Years since quittin.7 Smokeless tobacco: Never Tobacco comments: Quit 2000 Vaping Use Vaping Use: Never used Substance Use Topics Alcohol use: Yes Comment: one glass of wine rare, occasions. Drug use: No BP 128/70 Pulse 72 Ht 165.1 cm (5' 5 ) Wt 95.4 kg (210 lb 4.8 oz) SpO2 97% BMI 35.00 kg/m Physical Exam Vitals reviewed. Constitutional: General: She is not in acute distress. Appearance: She is not ill-appearing. Cardiovascular: Rate and Rhythm: Normal rate and regular rhythm. Pulses: Normal pulses. Heart sounds: Normal heart sounds. No murmur heard. Pulmonary: Effort: Pulmonary effort is normal. Breath sounds: Normal breath sounds. No wheezing, rhonchi or rales. Musculoskeletal: Right lower leg: No edema. Left lower leg: No edema. Neurological: Mental Status: She is alert. Health maintenance reviewed with patient: Influenza Vaccine(1) due on 05/23/2023 Covid-19 Vaccine(5 - Pfizer risk series) due on 12/11/2023 Shingrix Vaccine(1 of 2) due on 06/23/2024 Serum Creatinine due on 10/15/2023 BP Controlled (<130/80) due on 01/22/2024 Hemoglobin/Hematocrit due on 03/27/2024 Annual PCP Team Chronic Disease Visit due on 06/23/2024 Diabetes Screening due on 10/15/2025 Bone Density Screening Completed Advance Directive Discussion Completed Pneumococcal Vaccine: 65+ Completed DTaP,Tdap,Td Vaccine Discontinued Colorectal Cancer Screening Discontinued DATA REVIEWED: Most recent labs ASSESSMENT/PLAN: 1. Primary hypertension - ICD9: 401.9, ICD10: I10 (primary diagnosis) - Controlled - Continue current medications - Recommend home blood pressure monitoring, to bring results to next visit - Encouraged sodium restriction, DASH or Mediterranean diet 2. Congestive heart failure, unspecified HF chronicity, unspecified heart failure type (HCC) - ICD9: 428.0, ICD10: I50.9 stable - Euvolemic - Continue current medications 3. REY on CPAP - ICD9: 327.23, ICD10: G47.33 Compliant with CPAP 4. Hyperlipidemia, unspecified hyperlipidemia type - ICD9: 272.4, ICD10: E78.5 - Control undetermined, due for labs in 6 ,months - Continue current medications - LIPID PANEL BASIC 5. Rheumatoid arthritis 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) - ICD9: 714.0, ICD10: M06.09 Medications and monitoring per rheumatology 6. Anxiety state - ICD9: 300.00, ICD10: F41.1 Stable 7. Depressive disorder - ICD9: 311, ICD10: F32.A Stable 8. Encounter for immunization - ICD9: V03.89, ICD10: Z23 - INFLUENZA VACCINE, PRSV FREE, AGE 65+ YR, HIGH DOSE, QUADRIVALENT (FLUZONE HIGH-DOSE) Prescription instructions reviewed with patient as applicable. Potential red flag symptoms discussed with the patient. Reviewed appropriate action plan to take if red flag symptoms occur. Patient agreeable to treatment plan. Sherin Contreras APRN.CNP documented in this encounter [facility] 06-19-2023 Note HNO ID: [id number] Author: Sherif Malagon, RN Service: ? Author Type: Registered Nurse Type: Progress Notes Filed: 06/19/2023 12:28 PM Note Text: CDM Telephonic Outreach Provider Action/FYI CDM: CKD Called Pt, line was busy, unable to leave a message to verify symptom status and needs. Contacted for: Routine Telephonic Outreach Contact made with patient: No, unable to leave message. Third attempt - patient is unable to be reached. Sherif Malagon RN June 19, 2023 12:27 PM [facility] 06-19-2023 Miscellaneous Notes Patient has been scheduled for a follow up appointment next week on 06/23/2023 with Sherin. Are we able to fill the attached RX? Pharmacy verified in [facility] Patient has been identified by name and date of : Yes Patient aware RX will be sent to pharmacy. No need to notify patient. Patient phones for refill(s): Requested Prescriptions Pending Prescriptions Disp Refills potassium chloride ER (KLOR-CON) 20 mEq tablet 180 tablet 1 Sig: Take 1 tablet by mouth twice daily. Date of last office visit : 01/21/2023 Date of next office visit : Visit date not found Last 2 Encounter Wt Readings: Date: Wt: 01/21/2023 97.1 kg (214 lb) 12/10/2022 94.3 kg (208 lb) Not applicable Please advise. Roseann Arellano documented in this encounter [facility] 06-16-2023 Note HNO ID: [id number] Author: Sherif Malagon RN Service: ? Author Type: Registered Nurse Type: Progress Notes Filed: 06/19/2023 12:28 PM Note Text: CDM Telephonic Outreach Provider Action/FYI CDM: CKD Called Pt, line was busy, unable to leave a message to verify symptom status and needs. Contacted for: Routine Telephonic Outreach Contact made with patient: No, unable to leave message. Will reattempt call Sherif Malagon RN June 16, 2023 3:02 PM [facility] 06-13-2023 Note HNO ID: [id number] Author: Sherif Malagon RN Service: ? Author Type: Registered Nurse Type: Progress Notes Filed: 06/19/2023 12:28 PM Note Text: CDM Telephonic Outreach Provider Action/FYI CDM: CKD Called Pt, line was busy, unable to leave a message to verify symptom status and needs. Contacted for: Routine Telephonic Outreach Contact made with patient: No, unable to leave message. Will reattempt call Sherif Malagon RN June 13, 2023 1:46 PM [facility] 06-13-2023 Note Patient Outreach (AM [facility]) BRITTANY PORTILLO ([id number]) 1945 F Date Time Provider Department 06/13/23 SHERIF MALAGON During your visit today, we recorded the following information about you: Sherif Malagon RN 06/19/2023 12:28 PM Signed CDM Telephonic Outreach Provider Action/FYI CDM: CKD Called Pt, line was busy, unable to leave a message to verify symptom status and needs. Contacted for: Routine Telephonic Outreach Contact made with patient: No, unable to leave message. Will reattempt call Sherif Malagon RN June 13, 2023 1:46 PM Sherif Malagon RN 06/19/2023 12:28 PM Signed CDM Telephonic Outreach Provider Action/FYI CDM: CKD Called Pt, line was busy, unable to leave a message to verify symptom status and needs. Contacted for: Routine Telephonic Outreach Contact made with patient: No, unable to leave message. Will reattempt call Sherif Malagon RN June 16, 2023 3:02 PM Sherif Malagon RN 06/19/2023 12:28 PM Signed CDM Telephonic Outreach Provider Action/FYI CDM: CKD Called Pt, line was busy, unable to leave a message to verify symptom status and needs. Contacted for: Routine Telephonic Outreach Contact made with patient: No, unable to leave message. Third attempt - patient is unable to be reached. Sherif Malagon RN June 19, 2023 12:27 PM Allergies As of Date: 06/13/2023 Noted Allergy Reaction CODEINE 07/17/2005 Comments: vision loss NITROGLYCERIN 07/17/2005 Comments: decreased HR PENICILLINS 07/17/2005 2 - Rash 12 - Shortness of Breath SULFA (SULFONAMIDE ANTIBIOTICS) 07/17/2005 2 - Rash ZITHROMAX (AZITHROMYCIN) 09/04/2005 6 - Diarrhea Date Reviewed: 01/21/2023 Reviewed by: Sherin Contreras APRN.EMISSIONS ENGINEER - Fully Assessed Reason for Visit: Community Monitoring Outreach [Other] Prescriptions as of 06/19/2023 - furosemide (LASIX) 40 mg tablet Take 1 tablet by mouth once daily. - atenolol (TENORMIN) 25 mg tablet Take 1 tablet by mouth every other day. - potassium chloride ER (KLOR-CON) 20 mEq tablet Take 1 tablet by mouth twice daily. - amLODIPine (NORVASC) 5 mg tablet Take 1 tablet by mouth once daily. - atorvastatin (LIPITOR) 10 mg tablet Take 1 tablet by mouth daily at bedtime. For cholesterol. - FLUoxetine (PROZAC) 10 mg capsule Take 1 capsule by mouth once daily. - methotrexate 2.5 mg tablet Take 7 tablets by mouth one time a week. - ascorbic acid, vitamin C, (VITAMIN C) 500 mg tablet Take 500 mg by mouth once daily. - aspirin, enteric coated (ADULT LOW DOSE ASPIRIN) 81 mg EC tablet Take 1 tablet by mouth once daily. - COMPOUNDED PRESCRIPTION CPAP supplies - hydroxychloroquine 200 mg ORAL tablet Take by mouth twice daily. - cholecalciferol(VITAMIN D-3 1,000 UNIT CHEWABLE TAB) Take one(1) tablet daily. - FOLIC ACID 1 MG TAB Take 2 mg by mouth once daily. Problem List As Of Date 06/13/2023 Noted Resolved Type II or unspecified type diabetes mellitus w* 07/28/2014 HYPERLIPIDEMIA NEC/NOS [E78.5] 07/31/2015 Esophageal reflux [K21.9] 07/16/2017 Anxiety state [F41.1] Depressive disorder [F32.A] Osteoporosis [M81.0] PERS HX OF COLONIC MALIGNANCY [Z85.038] 07/17/2005 OVERWEIGHT [E66.9] 08/05/2006 01/25/2015 Malignant neoplasm of colon, unspecified site (* 11/07/2016 PAIN ABDOMEN( Periumbilical) [R10.33] 01/28/2007 01/25/2015 RECTAL BLEEDING (MELENA-578.1) [K62.5] 02/23/2007 11/07/2016 NEURALGIA INGUINAL [G57.90] 04/01/2007 11/07/2016 Rheumatoid arthritis of multiple sites with neg*12/21/2009 Obstructive sleep apnea [G47.33] 07/24/2010 11/07/2016 Hypertension [I10] 10/01/2010 Sleep apnea [G47.30] 10/01/2010 07/31/2015 Vitamin D deficiency [E55.9] 01/28/2011 SBO (small bowel obstruction) (HCC) [K56.609] 11/04/2012 11/07/2016 Partial small bowel obstruction (HCC) [K56.600] 03/12/2020 06/26/2020 DM type 2 (diabetes mellitus, type 2) (HCC) [E1*07/28/2014 11/20/2016 REY on CPAP [G47.33] 07/28/2014 Hyperlipidemia [E78.5] 07/31/2015 Type 2 diabetes mellitus without complication (*07/31/2015 11/20/2016 Rheumatoid arthritis involving both hands (HCC)*07/31/2015 11/07/2016 Abdominal discomfort [R10.9] 07/31/2015 11/07/2016 Generalized abdominal pain [R10.84] 08/07/2015 11/07/2016 Nausea [R11.0] 08/07/2015 11/07/2016 Abnormal mammogram [R92.8] 12/09/2016 08/18/2019 Stage 3a chronic kidney disease (HCC) [N18.31] 08/18/2019 Obesity, Class I, BMI 30-34.9 [E66.9] 08/18/2019 Fracture, Colles, left, open [S52.532B] 04/20/2020 03/19/2021 Abnormality of gait [R26.9] 07/13/2020 12/10/2022 Congestive heart failure (HCC) [I50.9] 12/11/2020 03/19/2021 Dyspnea on exertion [R06.09] 03/19/2021 05/09/2022 Edema of both legs [R60.0] 03/19/2021 Sciatica, right side [M54.31] 09/26/2021 Hypertensive kidney disease with stage 3a chron*10/10/2022 Encounter Status:Closed by (more content not included)... [facility] 05-22-2023 Note HNO ID: [id number] Author: Sherif Malagon RN Service: ? Author Type: Registered Nurse Type: Progress Notes Filed: 05/22/2023 10:51 AM Note Text: CDM Telephonic Outreach Provider Action/FYI CDM: CKD Spk with Pt she noted chronic unchanged Sob with exertion, mild intermittent Left had and Left ankle edema, Pt noted was out of Lasix and 05/20/23 re-ordered, Pt took Lasix today as ordered. . Pt denies Sob, wheezing, Pt has a runny nose and occasional cough, Pt believes it may be due to allergies. Instructed to notify PCP/ EMISSIONS ENGINEER for increased swelling, SOB, coughing, wheezing or other symptoms or condition changes Pt verbalized understanding Contacted for: Routine Telephonic Outreach Contact made with patient: Yes Patient identified by name and date of . Discussed care with patient Are you experiencing any new or worsening symptoms you need to talk about today? Yes Based on chip machine operator, the following disposition is advised: No symptoms or symptoms present, not severe. Routed to: No Action Needed LAURA Education Provided this Outreach: No Sherif Malagon RN May 22, 2023 10:34 AM [facility] 05-22-2023 History of Present illness Narrative CDM Telephonic Outreach Provider Action/FYI CDM: CKD Spk with Pt she noted chronic unchanged Sob with exertion, mild intermittent Left had and Left ankle edema, Pt noted was out of Lasix and 05/20/23 re-ordered, Pt took Lasix today as ordered. . Pt denies Sob, wheezing, Pt has a runny nose and occasional cough, Pt believes it may be due to allergies. Instructed to notify PCP/ EMISSIONS ENGINEER for increased swelling, SOB, coughing, wheezing or other symptoms or condition changes Pt verbalized understanding Contacted for: Routine Telephonic Outreach Contact made with patient: Yes Patient identified by name and date of . Discussed care with patient Are you experiencing any new or worsening symptoms you need to talk about today? Yes Based on chip machine operator, the following disposition is advised: No symptoms or symptoms present, not severe. Routed to: No Action Needed LAURA Education Provided this Outreach: No Sherif Malagon RN May 22, 2023 10:34 AM CDM Telephonic Outreach Provider Action/FYI CDM: CKD Called Pt, unable to leave a message to verify symptom status and needs Contacted for: Routine Telephonic Outreach Contact made with patient: No, unable to leave message. Will reattempt call Sherif Malagon RN May 21, 2023 5:24 PM CDM Telephonic Outreach Provider Action/FYI CDM: CKD Called Pt, unable to leave a message to verify symptom status and needs Contacted for: Routine Telephonic Outreach Contact made with patient: No, unable to leave message. Will reattempt call Sherif Malagon RN May 19, 2023 10:05 AM documented in this encounter [facility] 05-21-2023 Note HNO ID: [id number] Author: Sherif Malagon RN Service: ? Author Type: Registered Nurse Type: Progress Notes Filed: 05/22/2023 10:51 AM Note Text: CDM Telephonic Outreach Provider Action/FYI CDM: CKD Called Pt, unable to leave a message to verify symptom status and needs Contacted for: Routine Telephonic Outreach Contact made with patient: No, unable to leave message. Will reattempt call Sherif Malagon RN May 21, 2023 5:24 PM [facility] 05-20-2023 Miscellaneous Notes Patient has been identified by name and date of : Yes Patient phones for refill(s): Requested Prescriptions Pending Prescriptions Disp Refills furosemide (LASIX) 40 mg tablet 90 tablet 1 Sig: Take 1 tablet by mouth once daily. Date of last office visit in primary care: 01/21/2023 No future appt scheduled. Last 2 Encounter Wt Readings: Date: Wt: 01/21/2023 97.1 kg (214 lb) 12/10/2022 94.3 kg (208 lb) Previous labs/tests for medication: Blood Pressure: BUN (mg/dL) Date Value 10/15/2022 17 11/07/2021 26 Sodium (mmol/L) Date Value 10/15/2022 139 11/07/2021 141 Last 1 Encounter BP Readings: Date: BP: 01/21/2023 126/74 Please advise. Thank you. Briana Moses LPN Patient has been identified by name and date of : Yes Requested Prescriptions Pending Prescriptions Disp Refills furosemide (LASIX) 40 mg tablet 90 tablet 1 Sig: Take 1 tablet by mouth once daily. RX INSTRUCTIONS: Patient aware RX will be sent to pharmacy. No need to notify patient. Janet Hough documented in this encounter [facility] 05-19-2023 Note Patient Outreach (AM [facility]) BRITTANY PORTILLO ([id number]) 1945 F Date Time Provider Department 05/19/23 SHERIF MALAGON During your visit today, we recorded the following information about you: Sherif Malagon RN 05/22/2023 10:51 AM Signed CDM Telephonic Outreach Provider Action/FYI CDM: CKD Called Pt, unable to leave a message to verify symptom status and needs Contacted for: Routine Telephonic Outreach Contact made with patient: No, unable to leave message. Will reattempt call Sherif Malagon RN May 19, 2023 10:05 AM Sherif Malagon RN 05/22/2023 10:51 AM Signed CDM Telephonic Outreach Provider Action/FYI CDM: CKD Called Pt, unable to leave a message to verify symptom status and needs Contacted for: Routine Telephonic Outreach Contact made with patient: No, unable to leave message. Will reattempt call Sherif Malagon RN May 21, 2023 5:24 PM Sherif Malagon RN 05/22/2023 10:51 AM Signed CDM Telephonic Outreach Provider Action/FYI CDM: CKD Spk with Pt she noted chronic unchanged Sob with exertion, mild intermittent Left had and Left ankle edema, Pt noted was out of Lasix and 05/20/23 re-ordered, Pt took Lasix today as ordered. . Pt denies Sob, wheezing, Pt has a runny nose and occasional cough, Pt believes it may be due to allergies. Instructed to notify PCP/ EMISSIONS ENGINEER for increased swelling, SOB, coughing, wheezing or other symptoms or condition changes Pt verbalized understanding Contacted for: Routine Telephonic Outreach Contact made with patient: Yes Patient identified by name and date of . Discussed care with patient Are you experiencing any new or worsening symptoms you need to talk about today? Yes Based on chip machine operator, the following disposition is advised: No symptoms or symptoms present, not severe. Routed to: No Action Needed LAURA Education Provided this Outreach: No Sherif Malagon RN May 22, 2023 10:34 AM Allergies As of Date: 05/19/2023 Noted Allergy Reaction CODEINE 07/17/2005 Comments: vision loss NITROGLYCERIN 07/17/2005 Comments: decreased HR PENICILLINS 07/17/2005 2 - Rash 12 - Shortness of Breath SULFA (SULFONAMIDE ANTIBIOTICS) 07/17/2005 2 - Rash ZITHROMAX (AZITHROMYCIN) 09/04/2005 6 - Diarrhea Date Reviewed: 01/21/2023 Reviewed by: Sherin Contreras APRN.EMISSIONS ENGINEER - Fully Assessed Reason for Visit: Community Monitoring Outreach [Other] Prescriptions as of 05/22/2023 - furosemide (LASIX) 40 mg tablet Take 1 tablet by mouth once daily. - atenolol (TENORMIN) 25 mg tablet Take 1 tablet by mouth every other day. - potassium chloride ER (KLOR-CON) 20 mEq tablet Take 1 tablet by mouth twice daily. - amLODIPine (NORVASC) 5 mg tablet Take 1 tablet by mouth once daily. - atorvastatin (LIPITOR) 10 mg tablet Take 1 tablet by mouth daily at bedtime. For cholesterol. - FLUoxetine (PROZAC) 10 mg capsule Take 1 capsule by mouth once daily. - methotrexate 2.5 mg tablet Take 7 tablets by mouth one time a week. - ascorbic acid, vitamin C, (VITAMIN C) 500 mg tablet Take 500 mg by mouth once daily. - aspirin, enteric coated (ADULT LOW DOSE ASPIRIN) 81 mg EC tablet Take 1 tablet by mouth once daily. - COMPOUNDED PRESCRIPTION CPAP supplies - hydroxychloroquine 200 mg ORAL tablet Take by mouth twice daily. - cholecalciferol(VITAMIN D-3 1,000 UNIT CHEWABLE TAB) Take one(1) tablet daily. - FOLIC ACID 1 MG TAB Take 2 mg by mouth once daily. Problem List As Of Date 05/19/2023 Noted Resolved Type II or unspecified type diabetes mellitus w* 07/28/2014 HYPERLIPIDEMIA NEC/NOS [E78.5] 07/31/2015 Esophageal reflux [K21.9] 07/16/2017 Anxiety state [F41.1] Depressive disorder [F32.A] Osteoporosis [M81.0] PERS HX OF COLONIC MALIGNANCY [Z85.038] 07/17/2005 OVERWEIGHT [E66.9] 08/05/2006 01/25/2015 Malignant neoplasm of colon, unspecified site (* 11/07/2016 PAIN ABDOMEN( Periumbilical) [R10.33] 01/28/2007 01/25/2015 RECTAL BLEEDING (MELENA-578.1) [K62.5] 02/23/2007 11/07/2016 NEURALGIA INGUINAL [G57.90] 04/01/2007 11/07/2016 Rheumatoid arthritis of multiple sites with neg*12/21/2009 Obstructive sleep apnea [G47.33] 07/24/2010 11/07/2016 Hypertension [I10] 10/01/2010 Sleep apnea [G47.30] 10/01/2010 07/31/2015 Vitamin D deficiency [E55.9] 01/28/2011 SBO (small bowel obstruction) (HCC) [K56.609] 11/04/2012 11/07/2016 Partial small bowel obstruction (HCC) [K56.600] 03/12/2020 06/26/2020 DM type 2 (diabetes mellitus, type 2) (HCC) [E1*07/28/2014 11/20/2016 REY on CPAP [G47.33] 07/28/2014 Hyperlipidemia [E78.5] 07/31/2015 Type 2 diabetes mellitus without complication (*07/31/2015 11/20/2016 Rheumatoid arthritis involving both hands (HCC)*07/31/2015 11/07/2016 Abdominal discomfort [R10.9] 07/31/2015 11/07/2016 Generalized abdominal pain [R10.84] 08/07/2015 11/07/2016 Nausea [R11.0] 08/07/2015more content not included)... [facility] 05-19-2023 Note HNO ID: [id number] Author: Sherif Malagon RN Service: ? Author Type: Registered Nurse Type: Progress Notes Filed: 05/22/2023 10:51 AM Note Text: CDM Telephonic Outreach Provider Action/FYI CDM: CKD Called Pt, unable to leave a message to verify symptom status and needs Contacted for: Routine Telephonic Outreach Contact made with patient: No, unable to leave message. Will reattempt call Sherif Malagon RN May 19, 2023 10:05 AM [facility] 04-16-2023 Note HNO ID: [id number] Author: Sherif Malagon RN Service: ? Author Type: Registered Nurse Type: Progress Notes Filed: 04/16/2023 3:15 PM Note Text: CDM Telephonic Outreach Provider Action/FYI CDM: CKD Called Pt, unable to leave a message to verify symptom status and needs Contacted for: Routine Telephonic Outreach Contact made with patient: No, unable to leave message. Third attempt - patient is unable to be reached. Sherif Malagon RN April 16, 2023 3:05 PM [facility] 04-16-2023 History of Present illness Narrative CDM Telephonic Outreach Provider Action/FYI CDM: CKD Called Pt, unable to leave a message to verify symptom status and needs Contacted for: Routine Telephonic Outreach Contact made with patient: No, unable to leave message. Third attempt - patient is unable to be reached. Sherif Malagon RN April 16, 2023 3:05 PM documented in this encounter [facility] 04-16-2023 Note Patient Outreach (AM [facility]) BRITTANY PORTILLO ([id number]) 1945 F Date Time Provider Department 04/16/23 SHERIF MALAGON During your visit today, we recorded the following information about you: Sherif Malagon, RN 04/16/2023 3:15 PM Signed CDM Telephonic Outreach Provider Action/FYI CDM: CKD Called Pt, unable to leave a message to verify symptom status and needs Contacted for: Routine Telephonic Outreach Contact made with patient: No, unable to leave message. Third attempt - patient is unable to be reached. Sherif Malagon RN April 16, 2023 3:05 PM Allergies As of Date: 04/16/2023 Noted Allergy Reaction CODEINE 07/17/2005 Comments: vision loss NITROGLYCERIN 07/17/2005 Comments: decreased HR PENICILLINS 07/17/2005 2 - Rash 12 - Shortness of Breath SULFA (SULFONAMIDE ANTIBIOTICS) 07/17/2005 2 - Rash ZITHROMAX (AZITHROMYCIN) 09/04/2005 6 - Diarrhea Date Reviewed: 01/21/2023 Reviewed by: Sherin Contreras APRN.EMISSIONS ENGINEER - Fully Assessed Reason for Visit: Community Monitoring Outreach [Other] Prescriptions as of 04/16/2023 - atenolol (TENORMIN) 25 mg tablet Take 1 tablet by mouth every other day. - furosemide (LASIX) 40 mg tablet Take 1 tablet by mouth once daily. - potassium chloride ER (KLOR-CON) 20 mEq tablet Take 1 tablet by mouth twice daily. - amLODIPine (NORVASC) 5 mg tablet Take 1 tablet by mouth once daily. - atorvastatin (LIPITOR) 10 mg tablet Take 1 tablet by mouth daily at bedtime. For cholesterol. - FLUoxetine (PROZAC) 10 mg capsule Take 1 capsule by mouth once daily. - methotrexate 2.5 mg tablet Take 7 tablets by mouth one time a week. - ascorbic acid, vitamin C, (VITAMIN C) 500 mg tablet Take 500 mg by mouth once daily. - aspirin, enteric coated (ADULT LOW DOSE ASPIRIN) 81 mg EC tablet Take 1 tablet by mouth once daily. - COMPOUNDED PRESCRIPTION CPAP supplies - hydroxychloroquine 200 mg ORAL tablet Take by mouth twice daily. - cholecalciferol(VITAMIN D-3 1,000 UNIT CHEWABLE TAB) Take one(1) tablet daily. - FOLIC ACID 1 MG TAB Take 2 mg by mouth once daily. Problem List As Of Date 04/16/2023 Noted Resolved Type II or unspecified type diabetes mellitus w* 07/28/2014 HYPERLIPIDEMIA NEC/NOS [E78.5] 07/31/2015 Esophageal reflux [K21.9] 07/16/2017 Anxiety state [F41.1] Depressive disorder [F32.A] Osteoporosis [M81.0] PERS HX OF COLONIC MALIGNANCY [Z85.038] 07/17/2005 OVERWEIGHT [E66.9] 08/05/2006 01/25/2015 Malignant neoplasm of colon, unspecified site (* 11/07/2016 PAIN ABDOMEN( Periumbilical) [R10.33] 01/28/2007 01/25/2015 RECTAL BLEEDING (MELENA-578.1) [K62.5] 02/23/2007 11/07/2016 NEURALGIA INGUINAL [G57.90] 04/01/2007 11/07/2016 Rheumatoid arthritis of multiple sites with neg*12/21/2009 Obstructive sleep apnea [G47.33] 07/24/2010 11/07/2016 Hypertension [I10] 10/01/2010 Sleep apnea [G47.30] 10/01/2010 07/31/2015 Vitamin D deficiency [E55.9] 01/28/2011 SBO (small bowel obstruction) (HCC) [K56.609] 11/04/2012 11/07/2016 Partial small bowel obstruction (HCC) [K56.600] 03/12/2020 06/26/2020 DM type 2 (diabetes mellitus, type 2) (HCC) [E1*07/28/2014 11/20/2016 REY on CPAP [G47.33] 07/28/2014 Hyperlipidemia [E78.5] 07/31/2015 Type 2 diabetes mellitus without complication (*07/31/2015 11/20/2016 Rheumatoid arthritis involving both hands (HCC)*07/31/2015 11/07/2016 Abdominal discomfort [R10.9] 07/31/2015 11/07/2016 Generalized abdominal pain [R10.84] 08/07/2015 11/07/2016 Nausea [R11.0] 08/07/2015 11/07/2016 Abnormal mammogram [R92.8] 12/09/2016 08/18/2019 Stage 3a chronic kidney disease (HCC) [N18.31] 08/18/2019 Obesity, Class I, BMI 30-34.9 [E66.9] 08/18/2019 Fracture, Colles, left, open [S52.532B] 04/20/2020 03/19/2021 Abnormality of gait [R26.9] 07/13/2020 12/10/2022 Congestive heart failure (HCC) [I50.9] 12/11/2020 03/19/2021 Dyspnea on exertion [R06.09] 03/19/2021 05/09/2022 Edema of both legs [R60.0] 03/19/2021 Sciatica, right side [M54.31] 09/26/2021 Hypertensive kidney disease with stage 3a chron*10/10/2022 Encounter Status:Closed by SHERIF MALAGON on 04/16/23 [facility] 04-15-2023 Note HNO ID: [id number] Author: Sherif Malagon RN Service: ? Author Type: Registered Nurse Type: Progress Notes Filed: 04/15/2023 10:27 AM Note Text: CDM Telephonic Outreach Provider Action/FYI CDM: CKD Called Pt, unable to leave a message to verify symptom status and needs Contacted for: Routine Telephonic Outreach Contact made with patient: No, unable to leave message. Will reattempt call Sherif Malagon RN April 15, 2023 10:25 AM [facility] 04-14-2023 Note HNO ID: [id number] Author: Sherif Malagon RN Service: ? Author Type: Registered Nurse Type: Progress Notes Filed: 04/15/2023 10:27 AM Note Text: CDM Telephonic Outreach Provider Action/FYI CDM: CKD Called Pt, unable to leave a message to verify symptom status and needs Contacted for: Routine Telephonic Outreach Contact made with patient: No, unable to leave message. Will reattempt call Sherif Malagon RN April 14, 2023 12:50 PM [facility] 04-14-2023 Note Patient Outreach ([facility]) BRITTANY PORTILLO ([id number]) 1945 F Date Time Provider Department 04/14/23 SHERIF MALAGON [facility] During your visit today, we recorded the following information about you: Sherif Malagon RN 04/15/2023 10:27 AM Signed CDM Telephonic Outreach Provider Action/FYI CDM: CKD Called Pt, unable to leave a message to verify symptom status and needs Contacted for: Routine Telephonic Outreach Contact made with patient: No, unable to leave message. Will reattempt call Sherif Malagon RN April 14, 2023 12:50 PM Sherif Malagon RN 04/15/2023 10:27 AM Signed CDM Telephonic Outreach Provider Action/FYI CDM: CKD Called Pt, unable to leave a message to verify symptom status and needs Contacted for: Routine Telephonic Outreach Contact made with patient: No, unable to leave message. Will reattempt call Sherif Malagon RN April 15, 2023 10:25 AM Allergies As of Date: 04/14/2023 Noted Allergy Reaction CODEINE 07/17/2005 Comments: vision loss NITROGLYCERIN 07/17/2005 Comments: decreased HR PENICILLINS 07/17/2005 2 - Rash 12 - Shortness of Breath SULFA (SULFONAMIDE ANTIBIOTICS) 07/17/2005 2 - Rash ZITHROMAX (AZITHROMYCIN) 09/04/2005 6 - Diarrhea Date Reviewed: 01/21/2023 Reviewed by: Sherin Contreras APRN.EMISSIONS ENGINEER - Fully Assessed Reason for Visit: Community Monitoring Outreach [Other] Prescriptions as of 04/15/2023 - atenolol (TENORMIN) 25 mg tablet Take 1 tablet by mouth every other day. - furosemide (LASIX) 40 mg tablet Take 1 tablet by mouth once daily. - potassium chloride ER (KLOR-CON) 20 mEq tablet Take 1 tablet by mouth twice daily. - amLODIPine (NORVASC) 5 mg tablet Take 1 tablet by mouth once daily. - atorvastatin (LIPITOR) 10 mg tablet Take 1 tablet by mouth daily at bedtime. For cholesterol. - FLUoxetine (PROZAC) 10 mg capsule Take 1 capsule by mouth once daily. - methotrexate 2.5 mg tablet Take 7 tablets by mouth one time a week. - ascorbic acid, vitamin C, (VITAMIN C) 500 mg tablet Take 500 mg by mouth once daily. - aspirin, enteric coated (ADULT LOW DOSE ASPIRIN) 81 mg EC tablet Take 1 tablet by mouth once daily. - COMPOUNDED PRESCRIPTION CPAP supplies - hydroxychloroquine 200 mg ORAL tablet Take by mouth twice daily. - cholecalciferol(VITAMIN D-3 1,000 UNIT CHEWABLE TAB) Take one(1) tablet daily. - FOLIC ACID 1 MG TAB Take 2 mg by mouth once daily. Problem List As Of Date 04/14/2023 Noted Resolved Type II or unspecified type diabetes mellitus w* 07/28/2014 HYPERLIPIDEMIA NEC/NOS [E78.5] 07/31/2015 Esophageal reflux [K21.9] 07/16/2017 Anxiety state [F41.1] Depressive disorder [F32.A] Osteoporosis [M81.0] PERS HX OF COLONIC MALIGNANCY [Z85.038] 07/17/2005 OVERWEIGHT [E66.9] 08/05/2006 01/25/2015 Malignant neoplasm of colon, unspecified site (* 11/07/2016 PAIN ABDOMEN( Periumbilical) [R10.33] 01/28/2007 01/25/2015 RECTAL BLEEDING (MELENA-578.1) [K62.5] 02/23/2007 11/07/2016 NEURALGIA INGUINAL [G57.90] 04/01/2007 11/07/2016 Rheumatoid arthritis of multiple sites with neg*12/21/2009 Obstructive sleep apnea [G47.33] 07/24/2010 11/07/2016 Hypertension [I10] 10/01/2010 Sleep apnea [G47.30] 10/01/2010 07/31/2015 Vitamin D deficiency [E55.9] 01/28/2011 SBO (small bowel obstruction) (HCC) [K56.609] 11/04/2012 11/07/2016 Partial small bowel obstruction (HCC) [K56.600] 03/12/2020 06/26/2020 DM type 2 (diabetes mellitus, type 2) (HCC) [E1*07/28/2014 11/20/2016 REY on CPAP [G47.33] 07/28/2014 Hyperlipidemia [E78.5] 07/31/2015 Type 2 diabetes mellitus without complication (*07/31/2015 11/20/2016 Rheumatoid arthritis involving both hands (HCC)*07/31/2015 11/07/2016 Abdominal discomfort [R10.9] 07/31/2015 11/07/2016 Generalized abdominal pain [R10.84] 08/07/2015 11/07/2016 Nausea [R11.0] 08/07/2015 11/07/2016 Abnormal mammogram [R92.8] 12/09/2016 08/18/2019 Stage 3a chronic kidney disease (HCC) [N18.31] 08/18/2019 Obesity, Class I, BMI 30-34.9 [E66.9] 08/18/2019 Fracture, Colles, left, open [S52.532B] 04/20/2020 03/19/2021 Abnormality of gait [R26.9] 07/13/2020 12/10/2022 Congestive heart failure (HCC) [I50.9] 12/11/2020 03/19/2021 Dyspnea on exertion [R06.09] 03/19/2021 05/09/2022 Edema of both legs [R60.0] 03/19/2021 Sciatica, right side [M54.31] 09/26/2021 Hypertensive kidney disease with stage 3a chron*10/10/2022 Encounter Status:Closed by SHERIF MALAGON on 04/15/23 [facility] 03-12-2023 Note HNO ID: [id number] Author: Sherif Malagon RN Service: ? Author Type: Registered Nurse Type: Progress Notes Filed: 03/12/2023 2:41 PM Note Text: CDM Telephonic Outreach Provider Action/FYI CDM: CKD Pt denies symptoms, or needs. Instructed to call PCP with any changes in condition, Pt verbalized understanding and appreciation for call. CKD Laura education sent, Goals completed Contacted for: Routine Telephonic Outreach Contact made with patient: Yes Patient identified by name and date of . Discussed care with patient Are you experiencing any new or worsening symptoms you need to talk about today? No Disease Specific Do you check your blood pressure at home? Yes, Enter readings: BP 122/63 Do you have new or worsening shortness of breath with activity? No Do you have new or worsening trouble breathing while lying flat? No Do you have new or worsening swelling of legs, feet or ankles? No Do you feel like you are dehydrated for any reason, including not being able to eat or drink normally, or having less urine/much darker urine than normal for you? No Do you check your daily weight at home? Yes, Have you noticed a sudden gain in weight greater than three pounds in a day or three pounds in a week? No Based on chip machine operator, the following disposition is advised: No symptoms or symptoms present, not severe. Routed to: No Action Needed LAURA Education Provided this Outreach: Yes Sherif Malagon RN March 12, 2023 2:22 PM [facility] 03-12-2023 History of Present illness Narrative CDM Telephonic Outreach Provider Action/FYI CDM: CKD Pt denies symptoms, or needs. Instructed to call PCP with any changes in condition, Pt verbalized understanding and appreciation for call. CKD Laura education sent, Goals completed Contacted for: Routine Telephonic Outreach Contact made with patient: Yes Patient identified by name and date of . Discussed care with patient Are you experiencing any new or worsening symptoms you need to talk about today? No Disease Specific Do you check your blood pressure at home? Yes, Enter readings: BP 122/63 Do you have new or worsening shortness of breath with activity? No Do you have new or worsening trouble breathing while lying flat? No Do you have new or worsening swelling of legs, feet or ankles? No Do you feel like you are dehydrated for any reason, including not being able to eat or drink normally, or having less urine/much darker urine than normal for you? No Do you check your daily weight at home? Yes, Have you noticed a sudden gain in weight greater than three pounds in a day or three pounds in a week? No Based on chip machine operator, the following disposition is advised: No symptoms or symptoms present, not severe. Routed to: No Action Needed LAURA Education Provided this Outreach: Yes Sherif Malagon RN March 12, 2023 2:22 PM documented in this encounter [facility] 03-12-2023 Note Patient Outreach ([facility]) BRITTANY PORTILLO ([id number]) 1945 F Date Time Provider Department 03/12/23 SHERIF MALAGON During your visit today, we recorded the following information about you: Sherif Malagon RN 03/12/2023 2:41 PM Signed CDM Telephonic Outreach Provider Action/FYI CDM: CKD Pt denies symptoms, or needs. Instructed to call PCP with any changes in condition, Pt verbalized understanding and appreciation for call. CKD Laura education sent, Goals completed Contacted for: Routine Telephonic Outreach Contact made with patient: Yes Patient identified by name and date of . Discussed care with patient Are you experiencing any new or worsening symptoms you need to talk about today? No Disease Specific Do you check your blood pressure at home? Yes, Enter readings: BP 122/63 Do you have new or worsening shortness of breath with activity? No Do you have new or worsening trouble breathing while lying flat? No Do you have new or worsening swelling of legs, feet or ankles? No Do you feel like you are dehydrated for any reason, including not being able to eat or drink normally, or having less urine/much darker urine than normal for you? No Do you check your daily weight at home? Yes, Have you noticed a sudden gain in weight greater than three pounds in a day or three pounds in a week? No Based on chip machine operator, the following disposition is advised: No symptoms or symptoms present, not severe. Routed to: No Action Needed LAURA Education Provided this Outreach: Yes Sherif Malagon RN March 12, 2023 2:22 PM Allergies As of Date: 03/12/2023 Noted Allergy Reaction CODEINE 07/17/2005 Comments: vision loss NITROGLYCERIN 07/17/2005 Comments: decreased HR PENICILLINS 07/17/2005 2 - Rash 12 - Shortness of Breath SULFA (SULFONAMIDE ANTIBIOTICS) 07/17/2005 2 - Rash ZITHROMAX (AZITHROMYCIN) 09/04/2005 6 - Diarrhea Date Reviewed: 01/21/2023 Reviewed by: Sherin Contreras APRN.EMISSIONS ENGINEER - Fully Assessed Reason for Visit: Community Monitoring Outreach [Other] Primary Visit Diagnosis:Stage 3a chronic kidney disease (HCC) [N18.31] Order(s):PT ED NEPHROLOGY [[id number]] Order #: [id number]: 1 Prescriptions as of 03/12/2023 - atenolol (TENORMIN) 25 mg tablet Take 1 tablet by mouth every other day. - furosemide (LASIX) 40 mg tablet Take 1 tablet by mouth once daily. - potassium chloride ER (KLOR-CON) 20 mEq tablet Take 1 tablet by mouth twice daily. - amLODIPine (NORVASC) 5 mg tablet Take 1 tablet by mouth once daily. - atorvastatin (LIPITOR) 10 mg tablet Take 1 tablet by mouth daily at bedtime. For cholesterol. - FLUoxetine (PROZAC) 10 mg capsule Take 1 capsule by mouth once daily. - methotrexate 2.5 mg tablet Take 7 tablets by mouth one time a week. - ascorbic acid, vitamin C, (VITAMIN C) 500 mg tablet Take 500 mg by mouth once daily. - aspirin, enteric coated (ADULT LOW DOSE ASPIRIN) 81 mg EC tablet Take 1 tablet by mouth once daily. - COMPOUNDED PRESCRIPTION CPAP supplies - hydroxychloroquine 200 mg ORAL tablet Take by mouth twice daily. - cholecalciferol(VITAMIN D-3 1,000 UNIT CHEWABLE TAB) Take one(1) tablet daily. - FOLIC ACID 1 MG TAB Take 2 mg by mouth once daily. Problem List As Of Date 03/12/2023 Noted Resolved Type II or unspecified type diabetes mellitus w* 07/28/2014 HYPERLIPIDEMIA NEC/NOS [E78.5] 07/31/2015 Esophageal reflux [K21.9] 07/16/2017 Anxiety state [F41.1] Depressive disorder [F32.A] Osteoporosis [M81.0] PERS HX OF COLONIC MALIGNANCY [Z85.038] 07/17/2005 OVERWEIGHT [E66.9] 08/05/2006 01/25/2015 Malignant neoplasm of colon, unspecified site (* 11/07/2016 PAIN ABDOMEN( Periumbilical) [R10.33] 01/28/2007 01/25/2015 RECTAL BLEEDING (MELENA-578.1) [K62.5] 02/23/2007 11/07/2016 NEURALGIA INGUINAL [G57.90] 04/01/2007 11/07/2016 Rheumatoid arthritis of multiple sites with neg*12/21/2009 Obstructive sleep apnea [G47.33] 07/24/2010 11/07/2016 Hypertension [I10] 10/01/2010 Sleep apnea [G47.30] 10/01/2010 07/31/2015 Vitamin D deficiency [E55.9] 01/28/2011 SBO (small bowel obstruction) (HCC) [K56.609] 11/04/2012 11/07/2016 Partial small bowel obstruction (HCC) [K56.600] 03/12/2020 06/26/2020 DM type 2 (diabetes mellitus, type 2) (HCC) [E1*07/28/2014 11/20/2016 REY on CPAP [G47.33, Z99.89] 07/28/2014 Hyperlipidemia [E78.5] 07/31/2015 Type 2 diabetes mellitus without complication (*07/31/2015 11/20/2016 Rheumatoid arthritis involving both hands (HCC)*07/31/2015 11/07/2016 Abdominal discomfort [R10.9] 07/31/2015 11/07/2016 Generalized abdominal pain [R10.84] 08/07/2015 11/07/2016 Nausea [R11.0] 08/07/2015 11/07/2016 Abnormal mammogram [R92.8] 12/09/2016 08/18/2019 Stage 3a chronic kidney disease (HCC) [N18.31] 08/18/2019 Obesity, Class I, BMI 30-34.9 [E66.9] 08/18/2019 Fracture, Colles, left, open [S52.532B] 04/20/2020 03/19/20 (more content not included)... [facility] documented in this encounter [facility]05-30-2023 NoteHNO ID: [id number] Author: Sherif Malagon RN Service: ? Author Type: Registered Nurse Type: Progress Notes Filed: 02/18/2023 5:12 PM Note Text: CDM Telephonic Outreach Provider Action/FYI CDM: CHF/ CKD Spk with Pt she reports intermittent ankle edema, will elevate feet, and will wear compression stockings, taking Lasix as ordered. Instructed to call PCP with any changes in condition Pt verbalized understanding and appreciation for call.. Contacted for: Routine Telephonic Outreach Contact made with patient: Yes Patient identified by name and date of . Discussed care with patient Are you experiencing any new or worsening symptoms you need to talk about today? No Disease Specific Do you check your blood pressure at home? Yes, Enter readings: 126/59 Do you have new or worsening shortness of breath with activity? No Do you have new or worsening trouble breathing while lying flat? No Do you have new or worsening swelling of legs, feet or ankles? No Do you feel like you are dehydrated for any reason, including not being able to eat or drink normally, or having less urine/much darker urine than normal for you? No Do you check your daily weight at home? Yes, Have you noticed a sudden gain in weight greater than three pounds in a day or three pounds in a week? No Based on chip machine operator, the following disposition is advised: No symptoms or symptoms present, not severe. Routed to: No Action Needed LAURA Education Provided this Outreach: No Sherif Malagon RN February 18, 2023 4:42 [facility]05-28-2023 NoteHNO ID: [id number] Author: Sherif Malagon RN Service: ? Author Type: Registered Nurse Type: Progress Notes Filed: 02/18/2023 5:12 PM Note Text: CDM Telephonic Outreach Provider Action/FYI CDM: CHF/ CKD Called home number, unable to leave a message to verify symptom status and needs. Contacted for: Routine Telephonic Outreach Contact made with patient: No, unable to leave message. Will reattempt call Sherif Malagon RN February 16, 2023 7:33 [facility]05-28-2023 NotePatient Outreach ([facility]) BRITTANY PORTILLO ([id number]) 1945 F Date Time Provider Department 02/16/23 SHERIF MALAGON [facility] During your visit today, we recorded the following information about you: Sherif Malagon RN 02/18/2023 5:12 PM Signed CDM Telephonic Outreach Provider Action/FYShanell CDM: CHF/ CKD Called home number, unable to leave a message to verify symptom status and needs. Contacted for: Routine Telephonic Outreach Contact made with patient: No, unable to leave message. Will reattempt call Sherif Malagon RN February 16, 2023 7:33 PM Sherif Malagon RN 02/18/2023 5:12 PM Signed CDM Telephonic Outreach Provider Rios/FYShanell CDM: CHF/ CKD Spk with Pt she reports intermittent ankle edema, will elevate feet, and will wear compression stockings, taking Lasix as ordered. Instructed to call PCP with any changes in condition Pt verbalized understanding and appreciation for call.. Contacted for: Routine Telephonic Outreach Contact made with patient: Yes Patient identified by name and date of . Discussed care with patient Are you experiencing any new or worsening symptoms you need to talk about today? No Disease Specific Do you check your blood pressure at home? Yes, Enter readings: 126/59 Do you have new or worsening shortness of breath with activity? No Do you have new or worsening trouble breathing while lying flat? No Do you have new or worsening swelling of legs, feet or ankles? No Do you feel like you are dehydrated for any reason, including not being able to eat or drink normally, or having less urine/much darker urine than normal for you? No Do you check your daily weight at home? Yes, Have you noticed a sudden gain in weight greater than three pounds in a day or three pounds in a week? No Based on chip machine operator, the following disposition is advised: No symptoms or symptoms present, not severe. Routed to: No Action Needed LAURA Education Provided this Outreach: No Sherif Malagon RN February 18, 2023 4:42 PM Allergies As of Date: 02/16/2023 Noted Allergy Reaction CODEINE 07/17/2005 Comments: vision loss NITROGLYCERIN 07/17/2005 Comments: decreased HR PENICILLINS 07/17/2005 2 - Rash 12 - Shortness of Breath SULFA (SULFONAMIDE ANTIBIOTICS) 07/17/2005 2 - Rash ZITHROMAX (AZITHROMYCIN) 09/04/2005 6 - Diarrhea Date Reviewed: 01/21/2023 Reviewed by: Sherin Contreras APRN.EMISSIONS ENGINEER - Fully Assessed Reason for Visit: Community Monitoring Outreach [Other] Prescriptions as of 02/18/2023 - atenolol (TENORMIN) 25 mg tablet Take 1 tablet by mouth every other day. - furosemide (LASIX) 40 mg tablet Take 1 tablet by mouth once daily. - potassium chloride ER (KLOR-CON) 20 mEq tablet Take 1 tablet by mouth twice daily. - amLODIPine (NORVASC) 5 mg tablet Take 1 tablet by mouth once daily. - atorvastatin (LIPITOR) 10 mg tablet Take 1 tablet by mouth daily at bedtime. For cholesterol. - FLUoxetine (PROZAC) 10 mg capsule Take 1 capsule by mouth once daily. - methotrexate 2.5 mg tablet Take 7 tablets by mouth one time a week. - ascorbic acid, vitamin C, (VITAMIN C) 500 mg tablet Take 500 mg by mouth once daily. - aspirin, enteric coated (ADULT LOW DOSE ASPIRIN) 81 mg EC tablet Take 1 tablet by mouth once daily. - COMPOUNDED PRESCRIPTION CPAP supplies - hydroxychloroquine 200 mg ORAL tablet Take by mouth twice daily. - cholecalciferol(VITAMIN D-3 1,000 UNIT CHEWABLE TAB) Take one(1) tablet daily. - FOLIC ACID 1 MG TAB Take 2 mg by mouth once daily. Problem List As Of Date 02/16/2023 Noted Resolved Type II or unspecified type diabetes mellitus w* 07/28/2014 HYPERLIPIDEMIA NEC/NOS [E78.5] 07/31/2015 Esophageal reflux [K21.9] 07/16/2017 Anxiety state [F41.1] Depressive disorder [F32.A] Osteoporosis [M81.0] PERS HX OF COLONIC MALIGNANCY [Z85.038] 07/17/2005 OVERWEIGHT [E66.9] 08/05/2006 01/25/2015 Malignant neoplasm of colon, unspecified site (* 11/07/2016 PAIN ABDOMEN( Periumbilical) [R10.33] 01/28/2007 01/25/2015 RECTAL BLEEDING (MELENA-578.1) [K62.5] 02/23/2007 11/07/2016 NEURALGIA INGUINAL [G57.90] 04/01/2007 11/07/2016 Rheumatoid arthritis of multiple sites with neg*12/21/2009 Obstructive sleep apnea [G47.33] 07/24/2010 11/07/2016 Hypertension [I10] 10/01/2010 Sleep apnea [G47.30] 10/01/2010 07/31/2015 Vitamin D deficiency [E55.9] 01/28/2011 SBO (small bowel obstruction) (HCC) [K56.609] 11/04/2012 11/07/2016 Partial small bowel obstruction (HCC) [K56.600] 03/12/2020 06/26/2020 DM type 2 (diabetes mellitus, type 2) (HCC) [E1*07/28/2014 11/20/2016 REY on CPAP [G47.33, Z99.89] 07/28/2014 Hyperlipidemia [E78.5] 07/31/2015 Type 2 diabetes mellitus without complication (*07/31/2015 11/20/2016 Rheumatoid arthritis involving both hands (HCC)*07/31/2015 11/07/2016 Abdominal discomfort [R10.9] 07/31/2015 11/07/2016 Generalized abdominal pa (more content not included)...[facility]05-23-2023 NoteHNO ID: [id number] Author: Sherif Malagon RN Service: ? Author Type: Registered Nurse Type: Progress Notes Filed: 02/11/2023 11:01 AM Note Text: CDM Telephonic Outreach Provider Action/FYI CDM: CHF/ CKD Called Pt left a message to verify symptom status and needs. Instructed to call PCP with any symptom or condition changes. Contacted for: Routine Telephonic Outreach Contact made with patient: No, left message. Sherif Malagon RN February 11, 2023 10:58 [facility]05-22-2023 NoteHNO ID: [id number] Author: Sherif Malagon RN Service: ? Author Type: Registered Nurse Type: Progress Notes Filed: 02/11/2023 11:01 AM Note Text: CDM Telephonic Outreach Provider Action/FYI CDM: CHF/ CKD Called home number, unable to leave a message to verify symptom status and needs. Contacted for: Routine Telephonic Outreach Contact made with patient: No, unable to leave message. Will reattempt call Sherif Malagon RN February 10, 2023 5:04 [facility]05-19-2023 NoteHNO ID: [id number] Author: Sherif Malagon RN Service: ? Author Type: Registered Nurse Type: Progress Notes Filed: 02/11/2023 11:01 AM Note Text: CDM Telephonic Outreach Provider Action/FYI CDM: CHF/ CKD Called home number, unable to leave a message to verify symptom status and needs. Contacted for: Routine Telephonic Outreach Contact made with patient: No, unable to leave message. Will reattempt call Sherif Malagon RN February 07, 2023 1:35 [facility]05-19-2023 NotePatient Outreach ([facility]) BRITTANY PORTILLO ([id number]) 1945 F Date Time Provider Department 02/07/23 SHERIF MALAGON [facility] During your visit today, we recorded the following information about you: Sherif Malagon RN 02/11/2023 11:01 AM Signed CDM Telephonic Outreach Provider Action/FYI CDM: CHF/ CKD Called home number, unable to leave a message to verify symptom status and needs. Contacted for: Routine Telephonic Outreach Contact made with patient: No, unable to leave message. Will reattempt call Sherif Malagon RN February 07, 2023 1:35 PM Sherif Malagon RN 02/11/2023 11:01 AM Signed CDM Telephonic Outreach Provider Action/FYI CDM: CHF/ CKD Called home number, unable to leave a message to verify symptom status and needs. Contacted for: Routine Telephonic Outreach Contact made with patient: No, unable to leave message. Will reattempt call Sherif Malagon RN February 10, 2023 5:04 PM Sherif Malagon RN 02/11/2023 11:01 AM Signed CDM Telephonic Outreach Provider Action/FYI CDM: CHF/ CKD Called Pt left a message to verify symptom status and needs. Instructed to call PCP with any symptom or condition changes. Contacted for: Routine Telephonic Outreach Contact made with patient: No, left message. Sherif Malagon RN February 11, 2023 10:58 AM Allergies As of Date: 02/07/2023 Noted Allergy Reaction CODEINE 07/17/2005 Comments: vision loss NITROGLYCERIN 07/17/2005 Comments: decreased HR PENICILLINS 07/17/2005 2 - Rash 12 - Shortness of Breath SULFA (SULFONAMIDE ANTIBIOTICS) 07/17/2005 2 - Rash ZITHROMAX (AZITHROMYCIN) 09/04/2005 6 - Diarrhea Date Reviewed: 01/21/2023 Reviewed by: Sherin Contreras APRN.EMISSIONS ENGINEER - Fully Assessed Reason for Visit: Community Monitoring Outreach [Other] Prescriptions as of 02/11/2023 - atenolol (TENORMIN) 25 mg tablet Take 1 tablet by mouth every other day. - furosemide (LASIX) 40 mg tablet Take 1 tablet by mouth once daily. - potassium chloride ER (KLOR-CON) 20 mEq tablet Take 1 tablet by mouth twice daily. - amLODIPine (NORVASC) 5 mg tablet Take 1 tablet by mouth once daily. - atorvastatin (LIPITOR) 10 mg tablet Take 1 tablet by mouth daily at bedtime. For cholesterol. - FLUoxetine (PROZAC) 10 mg capsule Take 1 capsule by mouth once daily. - methotrexate 2.5 mg tablet Take 7 tablets by mouth one time a week. - ascorbic acid, vitamin C, (VITAMIN C) 500 mg tablet Take 500 mg by mouth once daily. - aspirin, enteric coated (ADULT LOW DOSE ASPIRIN) 81 mg EC tablet Take 1 tablet by mouth once daily. - COMPOUNDED PRESCRIPTION CPAP supplies - hydroxychloroquine 200 mg ORAL tablet Take by mouth twice daily. - cholecalciferol(VITAMIN D-3 1,000 UNIT CHEWABLE TAB) Take one(1) tablet daily. - FOLIC ACID 1 MG TAB Take 2 mg by mouth once daily. Problem List As Of Date 02/07/2023 Noted Resolved Type II or unspecified type diabetes mellitus w* 07/28/2014 HYPERLIPIDEMIA NEC/NOS [E78.5] 07/31/2015 Esophageal reflux [K21.9] 07/16/2017 Anxiety state [F41.1] Depressive disorder [F32.A] Osteoporosis [M81.0] PERS HX OF COLONIC MALIGNANCY [Z85.038] 07/17/2005 OVERWEIGHT [E66.9] 08/05/2006 01/25/2015 Malignant neoplasm of colon, unspecified site (* 11/07/2016 PAIN ABDOMEN( Periumbilical) [R10.33] 01/28/2007 01/25/2015 RECTAL BLEEDING (MELENA-578.1) [K62.5] 02/23/2007 11/07/2016 NEURALGIA INGUINAL [G57.90] 04/01/2007 11/07/2016 Rheumatoid arthritis of multiple sites with neg*12/21/2009 Obstructive sleep apnea [G47.33] 07/24/2010 11/07/2016 Hypertension [I10] 10/01/2010 Sleep apnea [G47.30] 10/01/2010 07/31/2015 Vitamin D deficiency [E55.9] 01/28/2011 SBO (small bowel obstruction) (HCC) [K56.609] 11/04/2012 11/07/2016 Partial small bowel obstruction (HCC) [K56.600] 03/12/2020 06/26/2020 DM type 2 (diabetes mellitus, type 2) (HCC) [E1*07/28/2014 11/20/2016 REY on CPAP [G47.33, Z99.89] 07/28/2014 Hyperlipidemia [E78.5] 07/31/2015 Type 2 diabetes mellitus without complication (*07/31/2015 11/20/2016 Rheumatoid arthritis involving both hands (HCC)*07/31/2015 11/07/2016 Abdominal discomfort [R10.9] 07/31/2015 11/07/2016 Generalized abdominal pain [R10.84] 08/07/2015 11/07/2016 Nausea [R11.0] 08/07/2015 11/07/2016 Abnormal mammogram [R92.8] 12/09/2016 08/18/2019 Stage 3a chronic kidney disease (HCC) [N18.31] 08/18/2019 Obesity, Class I, BMI 30-34.9 [E66.9] 08/18/2019 Fracture, Colles, left, open [S52.532B] 04/20/2020 03/19/2021 Abnormality of gait [R26.9] 07/13/2020 12/10/2022 Congestive heart failure (HCC) [I50.9] 12/11/2020 03/19/2021 Dyspnea on exertion [R06.09] 03/19/2021 05/09/2022 Edema of both legs [R60.0] 03/19/2021 Sciatica, right side [M54.31] 09/26/2021 Hypertensive kidney disease with stage 3a chron*10/10/2022 Encounter Status:Closed by SHERIF MALAGON on 02/11/23[facility]05-02-2023 NoteHNO ID: [id number] Author: Sherin Contreras APRN.EMISSIONS ENGINEER Service: ? Author Type: Nurse Practitioner Type: Progress Notes Filed: 01/21/2023 12:41 PM Note Text: CC Patient presents with: 6 WEEK FOLLOW UP: BP - STARTED NEW MED C/O FATIGUE HPI Brittany Portillo is a 77 year old female who presents to the office for blood pressure. Her visit today is for follow-up. Patient was last seen for this approximately 6 weeks ago Medication changes: Yes she was started on Atenolol 25 mg daily Taking all medications as prescribed: Yes Patient reports malaise, fatigue and worsening SOB associated with chest tightness that began about one week after starting Atenolol. Denies palpitations, edema, PND, orthopnea, fever, chills, cough, wheezing, hemoptysis, feeling faint, syncope. Home BP's: Yes 102-110's/60's-70's Last 4 Encounter BP Readings: Date: BP: 01/21/2023 126/74 12/10/2022 132/71 10/14/2022 128/76 05/10/2022 150/72 Last 3 Encounter Wt Readings: Date: Wt: 01/21/2023 97.1 kg (214 lb) 12/10/2022 94.3 kg (208 lb) 10/14/2022 96.2 kg (212 lb) REVIEW OF SYSTEMS See HPI PAST MEDICAL HISTORY Diagnosis Date Anxiety state Bowel obstruction (HCC) 2021 Congestive heart failure (HCC) 12/11/2020 COVID-19 04/30/2022 Home test+ with symptoms Depressive disorder Esophageal reflux GERD Fracture, Colles, left, open 04/20/2020 Hyperlipidemia 07/31/2015 Hypertension Internal hemorrhoids with other complication Malignant neoplasm of colon, unspecified site 2001 colo-rectal cancer Obesity, unspecified REY on CPAP 07/28/2014 Osteoporosis, unspecified Partial small bowel obstruction (HCC) 10/03/2021 and 03/12/2020 Polymyalgia rheumatica (HCC) Rheumatoid arthritis 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) 12/21/2009 Dr. Sarabia. Small bowel obstruction, partial (HCC) 05/05/202205/2011; 10/26/12; 09/2021. Recurrent. Stage 3a chronic kidney disease (HCC) 08/18/2019 Type II or unspecified type diabetes mellitus without mention of complication, not stated as uncontrolled 2000 PAST SURGICAL HISTORY Procedure Laterality Date BREAST BIOPSY NEEDLE LEFT Left 04/21/2019 benign BX BREAST W/DEVICE 1ST LESION STEREOTACTIC GUID Left 12/16/2016 DELIVERY ONLY 1982 , low cervical. 3 times (69,71,82) COLECTOMY PARTIAL W/ANASTOMOSIS 03/15/2002 low ant. resection with anastomosis of high rectal cancer. COLONOSCOPY FLX DX W/COLLJ SPEC WHEN PFRMD 2001 Colonoscopy COLONOSCOPY FLX DX W/COLLJ SPEC WHEN PFRMD 10/11/2005 COLONOSCOPY FLX DX W/COLLJ SPEC WHEN PFRMD 03/13/2007 Patent low anastomosis, hemorrhoids COLONOSCOPY FLX DX W/COLLJ SPEC WHEN PFRMD 02/08/2011 COLONOSCOPY FLX DX W/COLLJ SPEC WHEN PFRMD 11/08/2015 EGD TRANSORAL BIOPSY SINGLE/MULTIPLE 09/08/2015 ENTEROLSS FRING INTSTINAL ADHESION SPX 01/28/2007 HAND TENDON AMINTA RECONSTRUCTION Left 04/21/2020 A1 aminta release of stenosis tenosynovitis; wrist hardware removal PAST SURGICAL HISTORY OF Right 07/28/2020 Right carpal tunnel repair REPAIR WRIST FRACTURE Left 12/24/2019 ORIF distal radius fx, dorsal spanning plate, debridement of open fracture, carpal tunnel release TOTAL KNEE REPLACEMENT Right 02/2013 UNLIS LAPS PX HRNAP HERNIORRHAPHY HERNIOTOMY 01/28/2007 VENTRAL ALLERGIES Codeine, Nitroglycerin, Penicillins, Sulfa (Sulfonamide Antibiotics), and Zithromax [Azithromycin] MEDICATIONS furosemide (LASIX) 40 mg tablet Take 1 tablet by mouth once daily. atenolol (TENORMIN) 25 mg tablet Take 1 tablet by mouth once daily. potassium chloride ER (KLOR-CON) 20 mEq tablet Take 1 tablet by mouth twice daily. amLODIPine (NORVASC) 5 mg tablet Take 1 tablet by mouth once daily. atorvastatin (LIPITOR) 10 mg tablet Take 1 tablet by mouth daily at bedtime. For cholesterol. FLUoxetine (PROZAC) 10 mg capsule Take 1 capsule by mouth once daily. methotrexate 2.5 mg tablet Take 7 tablets by mouth one time a week. ascorbic acid, vitamin C, (VITAMIN C) 500 mg tablet Take 500 mg by mouth once daily. aspirin, enteric coated (ADULT LOW DOSE ASPIRIN) 81 mg EC tablet Take 1 tablet by mouth once daily. COMPOUNDED PRESCRIPTION CPAP supplies hydroxychloroquine 200 mg ORAL tablet Take by mouth twice daily. cholecalciferol(VITAMIN D-3 1,000 UNIT CHEWABLE TAB) Take one(1) tablet daily. FOLIC ACID 1 MG TAB Take 2 mg by mouth once daily. FAMILY HISTORY Problem Relation Age of Onset Cancer Mother liver Hypertension Mother Diabetes Mother Arthritis Mother Coronary Artery Disease Father of mi Diabetes Sister Blood Disease Sister leukemia Dementia Sister Diabetes Sister Coronary Artery Disease Sister Arthritis Sister Arthritis Sister Diabetes Brother Pancreatic Cancer Brother Coronary Artery Disease Brother Coronary Artery Disease Brother Diabetes Brother Colon Cancer Paternal Grandfather Cancer Maternal Uncle throat Social History Tobacco Use Smoking stat (more content not included)...[facility]05-02-2023 Instructions* Patient Instructions* Sherin Contreras APRN.EMISSIONS ENGINEER - 01/21/2023 11:07 AM EDT Decrease dose of Atenolol to every other day. Let me know if your symptoms get any worse. [facility] History of Present illness Narrative* Sherin Contreras APRN.CNP - 01/21/2023 10:52 AM EDT CC Patient presents with: 6 WEEK FOLLOW UP: BP - STARTED NEW MED C/O FATIGUE HPI Brittany Portillo is a 77 year old female who presents to the office for blood pressure. Her visit today is for follow-up. Patient was last seen for this approximately 6 weeks ago Medication changes: Yes she was started on Atenolol 25 mg daily Taking all medications as prescribed: Yes Patient reports malaise, fatigue and worsening SOB associated with chest tightness that began aboutone week after starting Atenolol. Denies palpitations, edema, PND, orthopnea, fever, chills, cough, wheezing, hemoptysis, feeling faint, syncope. Home BP's: Yes 102-110's/60's-70's Last 4 Encounter BP Readings: Date: BP: 01/21/2023 126/74 12/10/2022 132/71 10/14/2022 128/76 05/10/2022 150/72 Last 3 Encounter Wt Readings: Date: Wt: 01/21/2023 97.1 kg (214 lb) 12/10/2022 94.3 kg (208 lb) 10/14/2022 96.2 kg (212 lb) REVIEW OF SYSTEMS See HPI PAST MEDICAL HISTORY Diagnosis Date Anxiety state Bowel obstruction (HCC) 2021 Congestive heart failure (HCC) 12/11/2020 COVID-19 04/30/2022 Home test+ with symptoms Depressive disorder Esophageal reflux GERD Fracture, Colles, left, open 04/20/2020 Hyperlipidemia 07/31/2015 Hypertension Internal hemorrhoids with other complication Malignant neoplasm of colon, unspecified site 2001 colo-rectal cancer Obesity, unspecified REY on CPAP 07/28/2014 Osteoporosis, unspecified Partial small bowel obstruction (HCC) 10/03/2021 and 03/12/2020 Polymyalgia rheumatica (HCC) Rheumatoid arthritis 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) 12/21/2009 Dr. Sarabia. Small bowel obstruction, partial (HCC) 05/05/202205/2011; 10/26/12; 09/2021. Recurrent. Stage 3a chronic kidney disease (HCC) 08/18/2019 Type II or unspecified type diabetes mellitus without mention of complication, not stated as uncontrolled 2000 PAST SURGICAL HISTORY Procedure Laterality Date BREAST BIOPSY NEEDLE LEFT Left 04/21/2019 benign BX BREAST W/DEVICE 1ST LESION STEREOTACTIC GUID Left 12/16/2016 DELIVERY ONLY 1982 , low cervical. 3 times (69,71,82) COLECTOMY PARTIAL W/ANASTOMOSIS 03/15/2002 low ant. resection with anastomosis of high rectal cancer. COLONOSCOPY FLX DX W/COLLJ SPEC WHEN PFRMD 2001 Colonoscopy COLONOSCOPY FLX DX W/COLLJ SPEC WHEN PFRMD 10/11/2005 COLONOSCOPY FLX DX W/COLLJ SPEC WHEN PFRMD 03/13/2007 Patent low anastomosis, hemorrhoids COLONOSCOPY FLX DX W/COLLJ SPEC WHEN PFRMD 02/08/2011 COLONOSCOPY FLX DX W/COLLJ SPEC WHEN PFRMD 11/08/2015 EGD TRANSORAL BIOPSY SINGLE/MULTIPLE 09/08/2015 ENTEROLSS FRING INTSTINAL ADHESION SPX 01/28/2007 HAND TENDON AMINTA RECONSTRUCTION Left 04/21/2020 A1 aminta release of stenosis tenosynovitis; wrist hardware removal PAST SURGICAL HISTORY OF Right 07/28/2020 Right carpal tunnel repair REPAIR WRIST FRACTURE Left 12/24/2019 ORIF distal radius fx, dorsal spanning plate, debridement of open fracture, carpal tunnel release TOTAL KNEE REPLACEMENT Right 02/2013 UNLIS LAPS PX HRNAP HERNIORRHAPHY HERNIOTOMY 01/28/2007 VENTRAL ALLERGIES Codeine, Nitroglycerin, Penicillins, Sulfa (Sulfonamide Antibiotics), and Zithromax [Azithromycin] MEDICATIONS furosemide (LASIX) 40 mg tablet Take 1 tablet by mouth once daily. atenolol (TENORMIN) 25 mg tablet Take 1 tablet by mouth once daily. potassium chloride ER (KLOR-CON) 20 mEq tablet Take 1 tablet by mouth twice daily. amLODIPine (NORVASC) 5 mg tablet Take 1 tablet by mouth once daily. atorvastatin (LIPITOR) 10 mg tablet Take 1 tablet by mouth daily at bedtime. For cholesterol. FLUoxetine (PROZAC) 10 mg capsule Take 1 capsule by mouth once daily. methotrexate 2.5 mg tablet Take 7 tablets by mouth one time a week. ascorbic acid, vitamin C, (VITAMIN C) 500 mg tablet Take 500 mg by mouth once daily. aspirin, enteric coated (ADULT LOW DOSE ASPIRIN) 81 mg EC tablet Take 1 tablet by mouth once daily. COMPOUNDED PRESCRIPTION CPAP supplies hydroxychloroquine 200 mg ORAL tablet Take by mouth twice daily. cholecalciferol(VITAMIN D-3 1,000 UNIT CHEWABLE TAB) Take one(1) tablet daily. FOLIC ACID 1 MG TAB Take 2 mg by mouth once daily. FAMILY HISTORY Problem Relation Age of Onset Cancer Mother liver Hypertension Mother Diabetes Mother Arthritis Mother Coronary Artery Disease Father of mi Diabetes Sister Blood Disease Sister leukemia Dementia Sister Diabetes Sister Coronary Artery Disease Sister Arthritis Sister Arthritis Sister Diabetes Brother Pancreatic Cancer Brother Coronary Artery Disease Brother Coronary Artery Disease Brother Diabetes Brother Colon Cancer Paternal Grandfather Cancer Maternal Uncle throat Social History Tobacco Use Smoking status: Former Packs/day: 1.50 Years: 36.00 Pack years: 54.00 Types: Cigarettes Quit date: 09/22/2000 Years since quittin.3 Smokeless tobacco: Never Tobacco comments: Quit 2000 Vaping Use Vaping Use: Never used Substance Use Topics Alcohol use: Yes Comment: one glass of wine rare, occasions. Drug use: No PHYSICAL EXAM BP 126/74 Pulse 61 Resp 18 Wt 97.1 kg (214 lb) BMI 35.61 kg/m General Appearance: well appearing, in no acute distress, alert Lungs: Lungs clear to auscultation. No wheezing, rhonchi, rales. Heart: RRR without murmur, gallop, or rubs. No ectopy Ext: no edema in LE bilaterally, good distal pulses DATA REVIEWED: Most recent labs ASSESSMENT/PLAN: 1. Primary hypertension - ICD9: 401.9, ICD10: I10 (primary diagnosis) - good control - Continue current medication(s) - Decrease Atenolol to every other day (too small to split per patient) due to possible side effects - Recommend home blood pressure monitoring, to bring results in on next visit - Recheck in 6 weeks, sooner should new symptoms or problems arise. - Goal of BP <130/80 - ATENOLOL 25 MG TABLET 2. Shortness of breath - ICD9: 786.05, ICD10: R06.02 - ECG COMPLETE sinus bradycardia, no acute ischemia, no changes from previous Symptoms likely due to beta maryam, no further cardiac work-up at this time. See plan above 3. Fatigue, unspecified type - ICD9: 780.79, ICD10: R53.83 As above - ECG COMPLETE Prescription instructions reviewed with patient as applicable. Potential red flag symptoms discussed with the patient. Reviewed appropriate action plan to take if red flag symptoms occur. Patient agreeable to treatment plan Sherin Contreras APRN.CNP [facility] NoteHNO ID: [id number] Author: Sherif Malagon RN Service: ? Author Type: Registered Nurse Type: Progress Notes Filed: 01/20/2023 3:57 PM Note Text: CDM Telephonic Outreach Provider Action/FYI: Routed updates to Sherin Contreras CDM: CHF/ CKD Spk with Pt she noted increased mild to moderate Sob with exertion, and fatigue, denies CP, wheezing, cough or edema. BP 102/59, 212 lbs Pt declined need to speak to a virtual provider, noting she has 01/21/23 Appt with Sherin Contreras CNP Contacted for: Routine Telephonic Outreach Contact made with patient: Yes Patient identified by name and date of . Discussed care with patient Are you experiencing any new or worsening symptoms you need to talk about today? No Disease Specific Do you check your blood pressure at home? Yes, Enter readings: 102/59 Do you have new or worsening shortness of breath with activity? Yes Do you have new or worsening trouble breathing while lying flat? No Do you have new or worsening swelling of legs, feet or ankles? No Do you feel like you are dehydrated for any reason, including not being able to eat or drink normally, or having less urine/much darker urine than normal for you? No Do you check your daily weight at home? Yes, Have you noticed a sudden gain in weight greater than three pounds in a day or three pounds in a week? No Based on chip machine operator, the following disposition is advised: Symptoms present, not severe. Routed to: No Action Needed LAURA Education Provided this Outreach: No Sherif Malagon RN January 20, 2023 3:47 [facility]04-28-2023 NotePatient Outreach ([facility]) BRITTANY PORTILLO ([id number]) 1945 F Date Time Provider Department 01/17/23 SHERIF MALAGON During your visit today, we recorded the following information about you: Sherif Malagon RN 01/20/2023 3:57 PM Signed CDM Telephonic Outreach Provider Action/FYI CDM: CHF, CKD Called home number line was busy, unable to leave a message to verify symptom status and needs. Contacted for: Routine Telephonic Outreach Contact made with patient: No, unable to leave message. Will reattempt call Sherif Malagon RN January 17, 2023 11:51 AM Sherif Malagon RN 01/20/2023 3:57 PM Signed CDM Telephonic Outreach Provider Action/FYI: Routed updates to Sherin Contreras CDM: CHF/ CKD Spk with Pt she noted increased mild to moderate Sob with exertion, and fatigue, denies CP, wheezing, cough or edema. BP 102/59, 212 lbs Pt declined need to speak to a virtual provider, noting she has 01/21/23 Appt with Sherin Contreras CNP Contacted for: Routine Telephonic Outreach Contact made with patient: Yes Patient identified by name and date of . Discussed care with patient Are you experiencing any new or worsening symptoms you need to talk about today? No Disease Specific Do you check your blood pressure at home? Yes, Enter readings: 102/59 Do you have new or worsening shortness of breath with activity? Yes Do you have new or worsening trouble breathing while lying flat? No Do you have new or worsening swelling of legs, feet or ankles? No Do you feel like you are dehydrated for any reason, including not being able to eat or drink normally, or having less urine/much darker urine than normal for you? No Do you check your daily weight at home? Yes, Have you noticed a sudden gain in weight greater than three pounds in a day or three pounds in a week? No Based on chip machine operator, the following disposition is advised: Symptoms present, not severe. Routed to: No Action Needed LAURA Education Provided this Outreach: Kaylyn Malagon RN January 20, 2023 3:47 PM Allergies As of Date: 01/17/2023 Noted Allergy Reaction CODEINE 07/17/2005 Comments: vision loss NITROGLYCERIN 07/17/2005 Comments: decreased HR PENICILLINS 07/17/2005 2 - Rash 12 - Shortness of Breath SULFA (SULFONAMIDE ANTIBIOTICS) 07/17/2005 2 - Rash ZITHROMAX (AZITHROMYCIN) 09/04/2005 6 - Diarrhea Date Reviewed: 12/10/2022 Reviewed by: Briana Moses LPN - Fully Assessed Reason for Visit: Community Monitoring Outreach [Other] Prescriptions as of 01/20/2023 - furosemide (LASIX) 40 mg tablet Take 1 tablet by mouth once daily. - atenolol (TENORMIN) 25 mg tablet Take 1 tablet by mouth once daily. - potassium chloride ER (KLOR-CON) 20 mEq tablet Take 1 tablet by mouth twice daily. - amLODIPine (NORVASC) 5 mg tablet Take 1 tablet by mouth once daily. - atorvastatin (LIPITOR) 10 mg tablet Take 1 tablet by mouth daily at bedtime. For cholesterol. - FLUoxetine (PROZAC) 10 mg capsule Take 1 capsule by mouth once daily. - methotrexate 2.5 mg tablet Take 7 tablets by mouth one time a week. - ascorbic acid, vitamin C, (VITAMIN C) 500 mg tablet Take 500 mg by mouth once daily. - aspirin, enteric coated (ADULT LOW DOSE ASPIRIN) 81 mg EC tablet Take 1 tablet by mouth once daily. - COMPOUNDED PRESCRIPTION CPAP supplies - hydroxychloroquine 200 mg ORAL tablet Take by mouth twice daily. - cholecalciferol(VITAMIN D-3 1,000 UNIT CHEWABLE TAB) Take one(1) tablet daily. - FOLIC ACID 1 MG TAB Take 2 mg by mouth once daily. Problem List As Of Date 01/17/2023 Noted Resolved Type II or unspecified type diabetes mellitus w* 07/28/2014 HYPERLIPIDEMIA NEC/NOS [E78.5] 07/31/2015 Esophageal reflux [K21.9] 07/16/2017 Anxiety state [F41.1] Depressive disorder [F32.A] Osteoporosis [M81.0] PERS HX OF COLONIC MALIGNANCY [Z85.038] 07/17/2005 OVERWEIGHT [E66.9] 08/05/2006 01/25/2015 Malignant neoplasm of colon, unspecified site (* 11/07/2016 PAIN ABDOMEN( Periumbilical) [R10.33] 01/28/2007 01/25/2015 RECTAL BLEEDING (MELENA-578.1) [K62.5] 02/23/2007 11/07/2016 NEURALGIA INGUINAL [G57.90] 04/01/2007 11/07/2016 Rheumatoid arthritis of multiple sites with neg*12/21/2009 Obstructive sleep apnea [G47.33] 07/24/2010 11/07/2016 Hypertension [I10] 10/01/2010 Sleep apnea [G47.30] 10/01/2010 07/31/2015 Vitamin D deficiency [E55.9] 01/28/2011 SBO (small bowel obstruction) (HCC) [K56.609] 11/04/2012 11/07/2016 Partial small bowel obstruction (HCC) [K56.600] 03/12/2020 06/26/2020 DM type 2 (diabetes mellitus, type 2) (HCC) [E1*07/28/2014 11/20/2016 REY on CPAP [G47.33, Z99.89] 07/28/2014 Hyperlipidemia [E78.5] 07/31/2015 Type 2 diabetes mellitus without complication (*07/31/2015 11/20/2016 Rheumatoid arthritis involving both hands (HCC)*07/31/2015 11/07/2016 Abdominal discomfort [R10.9] 07/31/2015 11/07/2016 Gene (more content not included)...[facility]04-28-2023 NoteHNO ID: [id number] Author: Sherif Malagon RN Service: ? Author Type: Registered Nurse Type: Progress Notes Filed: 01/20/2023 3:57 PM Note Text: CDM Telephonic Outreach Provider Action/FYI CDM: CHF, CKD Called home number line was busy, unable to leave a message to verify symptom status and needs. Contacted for: Routine Telephonic Outreach Contact made with patient: No, unable to leave message. Will reattempt call Sherif Malagon RN January 17, 2023 11:51 [place] [address]-08-2023 NoteHNO ID: [id number] Author: Sehrif Malagon, GERMAN Service: ? Author Type: Registered Nurse Type: Progress Notes Filed: 12/28/2022 5:38 PM Note Text: BHAVIN CDM TELEPHONIC OUTREACH Provider Action/FYI: Routed Updates to Dr. Iyer CDM: CHF, CKD Spk with Pt she noted fell up the step and hit her right shoulder on the [place], Pt feels it may have been bruised, she took Tylenol OTC, Instructed to use an ice pack, Pt may try to go to Urgent Care, Instructed if unable then to schedule an evaluation by PCP/EMISSIONS ENGINEER on Friday. Pt noted she will. Contact made with patient: Yes Patient identified by name and . Discussed care with patient It?s nice talking to you again. As a reminder, this is our bi-weekly check-in where I will be asking you questions about your health. This will only take a few minutes of your time. Is this a good time? Yes Symptoms What Chronic Disease(s) does the patient have: CHF and CKD Do you check your blood pressures at home? Yes, Enter readings: Not taken Do you have new or worse shortness of breath with activity? No Do you have new or worsening trouble breathing while lying flat? No Do you have new or worsening swelling of legs, feet or ankles? No Do you feel like you are dehydrated for any reason, including not being able to eat or drink normally, or having less urine/much darker urine than normal for you? No Do you check your daily weight at home? Yes, Have you noticed a sudden gain in weight greater than three pounds in a day or three pounds in a week? No Are you having any other symptoms that your PCP needs to know about? Yes Symptoms: Fell up the stairs, hit right shoulder Symptom Escalation LAURA Education Ordered -: No The patient required an escalation for symptom(s)? No Medications Do you have any questions about taking your medication or which medications you should be on? No Do you need any medication refills at this time, including any of the medications you might take only when needed? No Social We would like to make sure you have what you need so that your basic needs are met- including your personal safety, food, housing, transportation and medications? Would you like to speak with a social work steam pipe fitter to help give you support for any of these needs? No It can be normal to feel anxious or down during a time like this. Would you like to talk to a mental health professional about how you have been feeling? No Closing Thank you for taking the time to talk with me today. We want to work with you to ensure that we are keeping your medical condition(s) well-controlled and to keep you healthy and out of the doctor's office or hospital. It?s also not too late for me to sign you up for automated weekly questionnaires through [employer]. This is an easy way for us to stay connected each week. Are you interested? No, I understand. We can always sign you up in the future if you change your mind. Just as a reminder, will continue to call you every other week to check in on your health. Our calls should take 10-15 minutes or less. Remember, if you have concerns in between our calls, please call your PCP's office right away. Thank you. Enter next patient outreach date for two weeks on the same day of the week as today in the Track Pt Outreach and End outreach. Sherif Malagon RN December 28, 2022 5:03 [facility]04-08-2023 History of Present illness Narrative* Sherif Malagon RN - 12/28/2022 5:03 PM EDT INSIGHT CDM TELEPHONIC OUTREACH Provider Action/FYI: Routed Updates to Dr. Iyer CDM: CHF, CKD Spk with Pt she noted fell up the step and hit her right shoulder on the [place], Pt feels it may have been bruised, she took Tylenol OTC, Instructed to use an ice pack, Pt may try to go to Urgent Care, Instructed if unable then to schedule an evaluation by PCP/EMISSIONS ENGINEER on Friday. Pt noted she will. Contact made with patient: Yes Patient identified by name and . Discussed care with patient It s nice talking to you again. As a reminder, this is our bi-weekly check-in where I will be asking you questions about your health. This will only take a few minutes of your time. Is this a good time? Yes Symptoms What Chronic Disease(s) does the patient have: CHF and CKD Do you check your blood pressures at home? Yes, Enter readings: Not taken Do you have new or worse shortness of breath with activity? No Do you have new or worsening trouble breathing while lying flat? No Do you have new or worsening swelling of legs, feet or ankles? No Do you feel like you are dehydrated for any reason, including not being able to eat or drink normally, or having less urine/much darker urine than normal for you? No Do you check your daily weight at home? Yes, Have you noticed a sudden gain in weight greater than three pounds in a day or three pounds in a week? No Are you having any other symptoms that your PCP needs to know about? Yes Symptoms: Fell up the stairs, hit right shoulder Symptom Escalation LAURA Education Ordered -: No The patient required an escalation for symptom(s)? No Medications Do you have any questions about taking your medication or which medications you should be on? No Do you need any medication refills at this time, including any of the medications you might take only when needed? No Social We would like to make sure you have what you need so that your basic needs are met- including your personal safety, food, housing, transportation and medications? Would you like to speak with a social work steam pipe fitter to help give you support for any of these needs? No It can be normal to feel anxious or down during a time like this. Would you like to talk to a mental health professional about how you have been feeling? No Closing Thank you for taking the time to talk with me today. We want to work with you to ensure that we arekeeping your medical condition(s) well-controlled and to keep you healthy and out of the doctor's office or hospital. It s also not too late for me to sign you up for automated weekly questionnaires through [employer]. This is an easy way for us to stay connected each week. Are you interested? No, I understand. We can always sign you up in the future if you change your mind. Just as a reminder, will continue to call you every other week to check in on your health. Our calls should take 10-15 minutes or less. Remember, if you have concerns in between our calls, please call your PCP's office right away. Thank you. Enter next patient outreach date for two weeks on the same day of the week as today in the Track PtOutreach and End outreach. Sherif Malagon RN December 28, 2022 5:03 PM * Sherif Malagon RN - 12/25/2022 3:06 PM EDT [facility]PH[facility]REACH Provider Action/FYI: CDM: CHF, CKD Left a message to verify symptom status, instructed to call PCP with any changes in condition or needs. Contact made with patient: No - Left message Rd my name is Sherif Malagon RN your Gang Tailer from the [facility] I am callingtoday for your bi-weekly check in. I am sorry I missed your call. I will reach out to you again tomorrow. (if the third call I will reach out to you again next week) Enter next patient outreach date for the following business day using the Track Pt Outreach. End outreach. Sherif Malagon RN December 25, 2022 3:06 PM [facility] NoteHNO ID: [id number] Author: Sherif Malagon RN Service: ? Author Type: Registered Nurse Type: Progress Notes Filed: 12/28/2022 5:38 PM Note Text: [facility] Provider Action/FYI: CDM: CHF, CKD Left a message to verify symptom status, instructed to call PCP with any changes in condition or needs. Contact made with patient: No - Left message Rd my name is Sherif Malagon RN your Gang Tailer from the [facility] I am calling today for your bi-weekly check in. I am sorry I missed your call. I will reach out to you again tomorrow. (if the third call I will reach out to you again next week) Enter next patient outreach date for the following business day using the Track Pt Outreach. End outreach. Sherif Malagon RN December 25, 2022 3:06 [facility]04-05-2023 NotePatient Outreach ([facility]) BRITTANY PORTILLO ([id number]) 1945 F Date Time Provider Department 12/25/22 SHERIF MALAGON During your visit today, we recorded the following information about you: Sherif Malagon RN 12/28/2022 5:38 PM Signed [facility] TELEPHONIC OUTREACH Provider Action/FYI: CDM: CHF, CKD Left a message to verify symptom status, instructed to call PCP with any changes in condition or needs. Contact made with patient: No - Left message Hello my name is Sherif Malagon RN your Gang Tailer from the [facility] I am calling today for your bi-weekly check in. I am sorry I missed your call. I will reach out to you again tomorrow. (if the third call I will reach out to you again next week) Enter next patient outreach date for the following using the Track Pt Outreach. End outreach. Sherif Malagon RN December 25, 2022 3:06 PM Sherif Malagon RN 12/28/2022 5:38 PM Signed [facility] TELEPHONIC OUTREACH Provider Action/FYI: Routed Updates to Dr. Elio LAZAROM: CHF, CKD Spk with Pt she noted fell up the step and hit her right shoulder on the [place], Pt feels it may have been bruised, she took Tylenol OTC, Instructed to use an ice pack, Pt may try to go to Urgent Care, Instructed if unable then to schedule an evaluation by PCP/EMISSIONS ENGINEER on Friday. Pt noted she will. Contact made with patient: Yes Patient identified by name and . Discussed care with patient It?s nice talking to you again. As a reminder, this is our bi-weekly check-in where I will be asking you questions about your health. This will only take a few minutes of your time. Is this a good time? Yes Symptoms What Chronic Disease(s) does the patient have: CHF and CKD Do you check your blood pressures at home? Yes, Enter readings: Not taken Do you have new or worse shortness of breath with activity? No Do you have new or worsening trouble breathing while lying flat? No Do you have new or worsening swelling of legs, feet or ankles? No Do you feel like you are dehydrated for any reason, including not being able to eat or drink normally, or having less urine/much darker urine than normal for you? No Do you check your daily weight at home? Yes, Have you noticed a sudden gain in weight greater than three pounds in a day or three pounds in a week? No Are you having any other symptoms that your PCP needs to know about? Yes Symptoms: Fell up the stairs, hit right shoulder Symptom Escalation LAURA Education Ordered -: No The patient required an escalation for symptom(s)? No Medications Do you have any questions about taking your medication or which medications you should be on? No Do you need any medication refills at this time, including any of the medications you might take only when needed? No Social We would like to make sure you have what you need so that your basic needs are met- including your personal safety, food, housing, transportation and medications? Would you like to speak with a social work steam pipe fitter to help give you support for any of these needs? No It can be normal to feel anxious or down during a time like this. Would you like to talk to a mental health professional about how you have been feeling? No Closing Thank you for taking the time to talk with me today. We want to work with you to ensure that we are keeping your medical condition(s) well-controlled and to keep you healthy and out of the doctor's office or hospital. It?s also not too late for me to sign you up for automated weekly questionnaires through [employer]. This is an easy way for us to stay connected each week. Are you interested? No, I understand. We can always sign you up in the future if you change your mind. Just as a reminder, will continue to call you every other week to check in on your health. Our calls should take 10-15 minutes or less. Remember, if you have concerns in between our calls, please call your PCP's office right away. Thank you. Enter next patient outreach date for two weeks on the same day of the week as today in the Track Pt Outreach and End outreach. Sherif Malagon RN December 28, 2022 5:03 PM Allergies As of Date: 12/25/2022 Noted Allergy Reaction CODEINE 07/17/2005 Comments: vision loss NITROGLYCERIN 07/17/2005 Comments: decreased HR PENICILLINS 07/17/2005 2 - Rash 12 - Shortness of Breath SULFA (SULFONAMIDE ANTIBIOTICS) 07/17/2005 2 - Rash ZITHROMAX (AZITHROMYCIN) 09/04/2005 6 - Diarrhea Date Reviewed: 12/10/2022 Reviewed by: Briana Moses LPN - Fully Assessed Reason for Visit: Community Monitoring Outreach [Other] Prescriptions as of 12/28/2022 - furosemide (LASIX) 40 mg tablet Take 1 tablet by mouth once daily. - atenolol (TENORMIN) 25 mg tablet Take 1 tablet by mouth once daily. - potassium chloride ER (KLOR-CON) 20 mEq tablet (more content not included)...[facility]03-30-2023 NoteHNO ID: [id number] Author: Sherif Malagon RN Service: ? Author Type: Registered Nurse Type: Progress Notes Filed: 12/19/2022 2:24 PM Note Text: [facility] TELEPHONIC OUTREACH Provider Action/FYI: CDM: CHF 2nd Call Left a message to verify symptom status, instructed to call PCP with any changes in condition or needs. Contact made with patient: No - Left message Rd my name is Sherif Malagon RN your Gang Tailer from the [facility] I am calling today for your bi-weekly check in. I am sorry I missed your call. I will reach out to you again tomorrow. (if the third call I will reach out to you again next week) Enter next patient outreach date for the following day using the Track Pt Outreach. End outreach. Sherif Malagon RN December 19, 2022 2:02 [facility]03-30-2023 History of Present illness Narrative* Sherif Malagon RN - 12/19/2022 2:02 PM EDT [facility]REACH Provider Action/FYI: CDM: CHF 2nd Call Left a message to verify symptom status, instructed to call PCP with any changes in condition or needs. Contact made with patient: No - Left message Rd my name is Sherif Malagon RN your Gang Tailer from the [facility] I am callingtoday for your bi-weekly check in. I am sorry I missed your call. I will reach out to you again tomorrow. (if the third call I will reach out to you again next week) Enter next patient outreach date for the following business day using the Track Pt Outreach. End outreach. Sherif Malagon RN December 19, 2022 2:02 PM * Sherif Malagon RN - 12/17/2022 11:22 AM EDT [facility]LEPHONIC OUTREACH Provider Action/FYI: CDM: CHF Left a message to verify symptom status, instructed to call PCP with any changes in condition or needs. Contact made with patient: No - Left message Friedaserena my name is Sherif Malagon RN your Gang Tailer from the [facility] I am callingtoday for your bi-weekly check in. I am sorry I missed your call. I will reach out to you again tomorrow. (if the third call I will reach out to you again next week) Enter next patient outreach date for the following business day using the Track Pt Outreach. End outreach. Sherif Malagon RN December 17, 2022 11:22 AM documented [facility] NotePatient Outreach ([facility]) BRITTANY PORTILLO ([id number]) 1945 F Date Time Provider Department 12/17/22 SHERIF MALAGON During your visit today, we recorded the following information about you: Sherif Malagon RN 12/19/2022 2:24 PM Signed [facility] TELEPHONIC OUTREACH Provider Action/FYI: CDM: MARSHA Left a message to verify symptom status, instructed to call PCP with any changes in condition or needs. Contact made with patient: No - Left message Rd my name is Sherif Malagno RN your Gang Tailer from the [facility] I am calling today for your bi-weekly check in. I am sorry I missed your call. I will reach out to you again tomorrow. (if the third call I will reach out to you again next week) Enter next patient outreach date for the following business day using the Track Pt Outreach. End outreach. Sherif Malagon RN December 17, 2022 11:22 AM Sherif Malagon RN 12/19/2022 2:24 PM Signed [facility] TELEPHONIC OUTREACH Provider Action/FYI: CDM: MARSHA 2nd Call Left a message to verify symptom status, instructed to call PCP with any changes in condition or needs. Contact made with patient: No - Left message Rd my name is Sherif Malagon RN your Gang Tailer from the [facility] I am calling today for your bi-weekly check in. I am sorry I missed your call. I will reach out to you again tomorrow. (if the third call I will reach out to you again next week) Enter next patient outreach date for the following business day using the Track Pt Outreach. End outreach. Sherif Malagon RN December 19, 2022 2:02 PM Allergies As of Date: 12/17/2022 Noted Allergy Reaction CODEINE 07/17/2005 Comments: vision loss NITROGLYCERIN 07/17/2005 Comments: decreased HR PENICILLINS 07/17/2005 2 - Rash 12 - Shortness of Breath SULFA (SULFONAMIDE ANTIBIOTICS) 07/17/2005 2 - Rash ZITHROMAX (AZITHROMYCIN) 09/04/2005 6 - Diarrhea Date Reviewed: 12/10/2022 Reviewed by: Briana Moses LPN - Fully Assessed Reason for Visit: Community Monitoring Outreach [Other] Prescriptions as of 12/19/2022 - furosemide (LASIX) 40 mg tablet Take 1 tablet by mouth once daily. - atenolol (TENORMIN) 25 mg tablet Take 1 tablet by mouth once daily. - potassium chloride ER (KLOR-CON) 20 mEq tablet Take 1 tablet by mouth twice daily. - amLODIPine (NORVASC) 5 mg tablet Take 1 tablet by mouth once daily. - atorvastatin (LIPITOR) 10 mg tablet Take 1 tablet by mouth daily at bedtime. For cholesterol. - FLUoxetine (PROZAC) 10 mg capsule Take 1 capsule by mouth once daily. - methotrexate 2.5 mg tablet Take 7 tablets by mouth one time a week. - ascorbic acid, vitamin C, (VITAMIN C) 500 mg tablet Take 500 mg by mouth once daily. - aspirin, enteric coated (ADULT LOW DOSE ASPIRIN) 81 mg EC tablet Take 1 tablet by mouth once daily. - COMPOUNDED PRESCRIPTION CPAP supplies - hydroxychloroquine 200 mg ORAL tablet Take by mouth twice daily. - cholecalciferol(VITAMIN D-3 1,000 UNIT CHEWABLE TAB) Take one(1) tablet daily. - FOLIC ACID 1 MG TAB Take 2 mg by mouth once daily. Problem List As Of Date 12/17/2022 Noted Resolved Type II or unspecified type diabetes mellitus w* 07/28/2014 HYPERLIPIDEMIA NEC/NOS [E78.5] 07/31/2015 Esophageal reflux [K21.9] 07/16/2017 Anxiety state [F41.1] Depressive disorder [F32.A] Osteoporosis [M81.0] PERS HX OF COLONIC MALIGNANCY [Z85.038] 07/17/2005 OVERWEIGHT [E66.9] 08/05/2006 01/25/2015 Malignant neoplasm of colon, unspecified site (* 11/07/2016 PAIN ABDOMEN( Periumbilical) [R10.33] 01/28/2007 01/25/2015 RECTAL BLEEDING (MELENA-578.1) [K62.5] 02/23/2007 11/07/2016 NEURALGIA INGUINAL [G57.90] 04/01/2007 11/07/2016 Rheumatoid arthritis of multiple sites with neg*12/21/2009 Obstructive sleep apnea [G47.33] 07/24/2010 11/07/2016 Hypertension [I10] 10/01/2010 Sleep apnea [G47.30] 10/01/2010 07/31/2015 Vitamin D deficiency [E55.9] 01/28/2011 SBO (small bowel obstruction) (HCC) [K56.609] 11/04/2012 11/07/2016 Partial small bowel obstruction (HCC) [K56.600] 03/12/2020 06/26/2020 DM type 2 (diabetes mellitus, type 2) (HCC) [E1*07/28/2014 11/20/2016 REY on CPAP [G47.33, Z99.89] 07/28/2014 Hyperlipidemia [E78.5] 07/31/2015 Type 2 diabetes mellitus without complication (*07/31/2015 11/20/2016 Rheumatoid arthritis involving both hands (HCC)*07/31/2015 11/07/2016 Abdominal discomfort [R10.9] 07/31/2015 11/07/2016 Generalized abdominal pain [R10.84] 08/07/2015 11/07/2016 Nausea [R11.0] 08/07/2015 11/07/2016 Abnormal mammogram [R92.8] 12/09/2016 08/18/2019 Stage 3a chronic kidney disease (HCC) [N18.31] 08/18/2019 Obesity, Class I, BMI 30-34.9 [E66.9] 08/18/2019 Fracture, Colles, left, open [S52.532B] 04/20/2020 03/19/2021 Abnormality of gait [R26.9] 07/13/2020 12/10/2022 Congestive heart failure (HCC) [I50.9] 12/11/2020 03/19/2021 Dy (more content not included)...[facility]03-28-2023 NoteHNO ID: [id number] Author: Sherif Malagon RN Service: ? Author Type: Registered Nurse Type: Progress Notes Filed: 12/19/2022 2:24 PM Note Text: [facility]LEPHONIC OUTREACH Provider Action/FYI: CDM: CHF Left a message to verify symptom status, instructed to call PCP with any changes in condition or needs. Contact made with patient: No - Left message Friedalo my name is Sherif Malagon RN your Gang Tailer from the [facility] I am calling today for your bi-weekly check in. I am sorry I missed your call. I will reach out to you again tomorrow. (if the third call I will reach out to you again next week) Enter next patient outreach date for the following business day using the Track Pt Outreach. End outreach. Sherif Malagon RN December 17, 2022 11:22 [facility]03-24-2023 NoteHNO ID: [id number] Author: Sherif Malagon RN Service: ? Author Type: Registered Nurse Type: Progress Notes Filed: 12/17/2022 11:14 AM Note Text: [facility] TELEPHONIC OUTREACH Provider Action/FYI: CDM: CHF Called Pt to verify symptom status and needs, unable to leave a message, line rang busy Contact made with patient: No - Unable to leave message Entered next patient outreach date for the following business day, if third call please enter next outreach date for one week in the Track Pt. Outreach - End Outreach Sherif Malagon RN December 13, 2022 11:08 [facility]03-24-2023 History of Present illness Narrative* Sherif Malagon RN - 12/13/2022 11:08 AM EDT [facility] TELEPHONIC OUTREACH Provider Action/FYI: CDM: CHF Called Pt to verify symptom status and needs, unable to leave a message, line rang busy Contact made with patient: No - Unable to leave message Entered next patient outreach date for the following business day, if third call please enter next outreach date for one week in the Track Pt. Outreach - End Outreach Sherif Malagon RN December 13, 2022 11:08 AM * Sherif Malagon RN - 12/12/2022 4:29 PM EDT [facility] TELEPHONIC OUTREACH Provider Action/FYI: CDM: CHF Called Pt to verify symptom status and needs, unable to leave a message, mail box is full. Contact made with patient: No - Unable to leave message Entered next patient outreach date for the following business day, if third call please enter next outreach date for one week in the Track Pt. Outreach - End Outreach Sherif Malagon RN December 12, 2022 4:29 PM [facility] NoteHNO ID: [id number] Author: Sherif Malagon RN Service: ? Author Type: Registered Nurse Type: Progress Notes Filed: 12/17/2022 11:14 AM Note Text: [facility]LEPH[facility] OUTREACH Provider Action/FYI: CDM: CHF Called Pt to verify symptom status and needs, unable to leave a message, mail box is full. Contact made with patient: No - Unable to leave message Entered next patient outreach date for the following business day, if third call please enter next outreach date for one week in the Track Pt. Outreach - End Outreach Sherif Malagon RN December 12, 2022 4:29 [facility]03-23-2023 NotePatient Outreach ([facility]) BRITTANY PORTILLO ([id number]) 1945 F Date Time Provider Department 12/12/22 SHERIF MALAGON During your visit today, we recorded the following information about you: Sherif Malagon RN 12/17/2022 11:14 AM Signed [facility] TELEPHONIC OUTREACH Provider Action/FYI: CDM: CHF Called Pt to verify symptom status and needs, unable to leave a message, mail box is full. Contact made with patient: No - Unable to leave message Entered next patient outreach date for the following business day, if third call please enter next outreach date for one week in the Track Pt. Outreach - End Outreach Sherif Malagon RN December 12, 2022 4:29 PM Sherif Malagon RN 12/17/2022 11:14 AM Signed [facility]REACH Provider Action/FYI: CDM: CHF Called Pt to verify symptom status and needs, unable to leave a message, line rang busy Contact made with patient: No - Unable to leave message Entered next patient outreach date for the following business day, if third call please enter next outreach date for one week in the Track Pt. Outreach - End Outreach Sherif Malagon RN December 13, 2022 11:08 AM Allergies As of Date: 12/12/2022 Noted Allergy Reaction CODEINE 07/17/2005 Comments: vision loss NITROGLYCERIN 07/17/2005 Comments: decreased HR PENICILLINS 07/17/2005 2 - Rash 12 - Shortness of Breath SULFA (SULFONAMIDE ANTIBIOTICS) 07/17/2005 2 - Rash ZITHROMAX (AZITHROMYCIN) 09/04/2005 6 - Diarrhea Date Reviewed: 12/10/2022 Reviewed by: Briana Moses LPN - Fully Assessed Reason for Visit: Community Monitoring Outreach [Other] Prescriptions as of 12/17/2022 - furosemide (LASIX) 40 mg tablet Take 1 tablet by mouth once daily. - atenolol (TENORMIN) 25 mg tablet Take 1 tablet by mouth once daily. - potassium chloride ER (KLOR-CON) 20 mEq tablet Take 1 tablet by mouth twice daily. - amLODIPine (NORVASC) 5 mg tablet Take 1 tablet by mouth once daily. - atorvastatin (LIPITOR) 10 mg tablet Take 1 tablet by mouth daily at bedtime. For cholesterol. - FLUoxetine (PROZAC) 10 mg capsule Take 1 capsule by mouth once daily. - methotrexate 2.5 mg tablet Take 7 tablets by mouth one time a week. - ascorbic acid, vitamin C, (VITAMIN C) 500 mg tablet Take 500 mg by mouth once daily. - aspirin, enteric coated (ADULT LOW DOSE ASPIRIN) 81 mg EC tablet Take 1 tablet by mouth once daily. - COMPOUNDED PRESCRIPTION CPAP supplies - hydroxychloroquine 200 mg ORAL tablet Take by mouth twice daily. - cholecalciferol(VITAMIN D-3 1,000 UNIT CHEWABLE TAB) Take one(1) tablet daily. - FOLIC ACID 1 MG TAB Take 2 mg by mouth once daily. Problem List As Of Date 12/12/2022 Noted Resolved Type II or unspecified type diabetes mellitus w* 07/28/2014 HYPERLIPIDEMIA NEC/NOS [E78.5] 07/31/2015 Esophageal reflux [K21.9] 07/16/2017 Anxiety state [F41.1] Depressive disorder [F32.A] Osteoporosis [M81.0] PERS HX OF COLONIC MALIGNANCY [Z85.038] 07/17/2005 OVERWEIGHT [E66.9] 08/05/2006 01/25/2015 Malignant neoplasm of colon, unspecified site (* 11/07/2016 PAIN ABDOMEN( Periumbilical) [R10.33] 01/28/2007 01/25/2015 RECTAL BLEEDING (MELENA-578.1) [K62.5] 02/23/2007 11/07/2016 NEURALGIA INGUINAL [G57.90] 04/01/2007 11/07/2016 Rheumatoid arthritis of multiple sites with neg*12/21/2009 Obstructive sleep apnea [G47.33] 07/24/2010 11/07/2016 Hypertension [I10] 10/01/2010 Sleep apnea [G47.30] 10/01/2010 07/31/2015 Vitamin D deficiency [E55.9] 01/28/2011 SBO (small bowel obstruction) (HCC) [K56.609] 11/04/2012 11/07/2016 Partial small bowel obstruction (HCC) [K56.600] 03/12/2020 06/26/2020 DM type 2 (diabetes mellitus, type 2) (HCC) [E1*07/28/2014 11/20/2016 REY on CPAP [G47.33, Z99.89] 07/28/2014 Hyperlipidemia [E78.5] 07/31/2015 Type 2 diabetes mellitus without complication (*07/31/2015 11/20/2016 Rheumatoid arthritis involving both hands (HCC)*07/31/2015 11/07/2016 Abdominal discomfort [R10.9] 07/31/2015 11/07/2016 Generalized abdominal pain [R10.84] 08/07/2015 11/07/2016 Nausea [R11.0] 08/07/2015 11/07/2016 Abnormal mammogram [R92.8] 12/09/2016 08/18/2019 Stage 3a chronic kidney disease (HCC) [N18.31] 08/18/2019 Obesity, Class I, BMI 30-34.9 [E66.9] 08/18/2019 Fracture, Colles, left, open [S52.532B] 04/20/2020 03/19/2021 Abnormality of gait [R26.9] 07/13/2020 12/10/2022 Congestive heart failure (HCC) [I50.9] 12/11/2020 03/19/2021 Dyspnea on exertion [R06.09] 03/19/2021 05/09/2022 Edema of both legs [R60.0] 03/19/2021 Sciatica, right side [M54.31] 09/26/2021 Hypertensive kidney disease with stage 3a chron*10/10/2022 Encounter Status:Closed by SHERIF MALAGON on 12/17/22[facility]03-21-2023 NoteHNO ID: [id number] Author: RT Milena(R) Service: Radiology Author Type: Technologist Type: Progress Notes Filed: 12/10/2022 12:35 PM Note Text: Radiology Service Progress Note PATIENT NAME: Brittany Portillo DATE OF SERVICE: December 10, 2022 TIME: 12:16 PM PATIENT IDENTITY VERIFICATION COMPLETED USING TWO (2) IDENTIFIERS: Name and Date of confirmed by patient verbally. FALL SCREENING: Has the patient had 2 falls in the last year or 1 fall with injury or currently using an Ambulatory Assistive Device (Walker, Cane, Wheelchair, Crutches, etc.)? No PATIENT GENDER DATA: Female. status: : No status: NO. PATIENT RELEVANT IMPLANT DATA REVIEWED: Yes RADIOLOGY DEPARTMENT: General X-ray: Exam(s) Completed: Lower Extremity X-Ray(s): Knee, AP / Lat / Tunne / Merchant Left and Wt. Bearing PERIPHERAL IV DATA: Not applicable SIGNED BY: RT Milena(R) December 10, 2022 12:16 [facility]03-21-2023 NoteHNO ID: [id number] Author: Jesus Iyer MD Service: ? Author Type: Physician Type: Progress Notes Filed: 12/10/2022 1:19 PM Note Text: This note was created using NoteWriter. Subjective Brittany Portillo is a 77 year old female was here for follow up. Her hypertension was not at goal. Edema was controlled on furosemide. Kidney function was stable. Lipids were controlled. Depression and anxiety were stable. She was using her CPAP nightly with benefit. Lipids were controlled. Her new concern is left pain for the past 2 months. She denied any injury, but knee pain was more bothersome with prolonged standing and ambulation. Tylenol helped knee pain. She had total knee replacement of the right in 2013. Review of Systems Constitutional: Negative for chills, fatigue, fever and unexpected weight change. HENT: Negative. Respiratory: Negative for cough and shortness of breath. Cardiovascular: Negative for chest pain, palpitations and leg swelling. Gastrointestinal: Negative for abdominal pain, constipation and diarrhea. Genitourinary: Negative. Musculoskeletal: Positive for arthralgias. Neurological: Negative. 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 amLODIPine (NORVASC) 5 mg tablet Take 1 tablet by mouth once daily. atorvastatin (LIPITOR) 10 mg tablet Take 1 tablet by mouth daily at bedtime. For cholesterol. FLUoxetine (PROZAC) 10 mg capsule Take 1 capsule by mouth once daily. methotrexate 2.5 mg tablet Take 7 tablets by mouth one time a week. ascorbic acid, vitamin C, (VITAMIN C) 500 mg tablet Take 500 mg by mouth once daily. aspirin, enteric coated (ADULT LOW DOSE ASPIRIN) 81 mg EC tablet Take 1 tablet by mouth once daily. COMPOUNDED PRESCRIPTION CPAP supplies hydroxychloroquine 200 mg ORAL tablet Take by mouth twice daily. cholecalciferol(VITAMIN D-3 1,000 UNIT CHEWABLE TAB) Take one(1) tablet daily. FOLIC ACID 1 MG TAB Take 2 mg by mouth once daily. furosemide (LASIX) 40 mg tablet Take 1 tablet by mouth once daily. No current facility-administered medications for this visit. Objective BP 132/71 (BP Site: Left Arm, BP Position: Sitting, BP Cuff Size: Large Adult) Pulse 75 Resp 16 Ht 165.1 cm (5' 5 ) Wt 94.3 kg (208 lb) BMI 34.61 kg/m? Physical Exam Constitutional: General: She is not in acute distress. Cardiovascular: Rate and Rhythm: Normal rate and regular rhythm. Heart sounds: No murmur heard. No gallop. Pulmonary: Effort: Pulmonary effort is normal. Breath sounds: Normal breath sounds. Abdominal: Palpations: Abdomen is soft. Tenderness: There is no abdominal tenderness. Musculoskeletal: Left hip: Normal. No tenderness. Normal range of motion. Left knee: Swelling and deformity present. No effusion. Normal range of motion. No tenderness. Abnormal alignment. Normal meniscus. Right lower leg: No edema. Left lower leg: No edema. Comments: Left knee valgus deformity. Neurological: General: No focal deficit present. Mental Status: She is alert and oriented to person, place, and time. Comments: Using a cane. Psychiatric: Mood and Affect: Mood normal. Behavior: Behavior normal. Assessment and Plan 1. Medicare annual wellness visit, subsequent - ICD9: V70.0, ICD10: Z00.00 (primary diagnosis) See wellness note. 2. Primary hypertension - ICD9: 401.9, ICD10: I10 - suboptimal control - Continue current medication(s) - Add atenolol (Tenormin) - Encouraged dietary sodium restriction/DASH diet - Reviewed risks of HTN and principles of treatment - Goal of BP <130/80 - FUROSEMIDE 40 MG TABLET - ATENOLOL 25 MG TABLET. Discussed medication dosage, usage, goals of therapy, and side effects. 3. Edema of both legs - ICD9: 782.3, ICD10: R60.0 Controlled. - FUROSEMIDE 40 MG TABLET 4. Anxiety state - ICD9: 300.00, ICD10: F41.1 Controlled. 5. Depressive disorder - ICD9: 311, ICD10: F32.A Controlled. 6. REY on CPAP - ICD9: 327.23, V46.8, ICD10: G47.33, Z99.89 Using and benefiting from regular CPAP use. 7. Hyperlipidemia, unspecified hyperlipidemia type - ICD9: 272.4, ICD10: E78.5 - good control - Continue current medication. 8. Stage 3a chronic kidney disease (HCC) - ICD9: 585.3, ICD10: N18.31 - eGFR: Stable - Counseled on avoiding regular use of NSAIDs, adequate hydration, potential risk of IV dye 9. Hypertensive kidney disease with sta (more content not included)...[facility]03-21-2023 NoteHNO ID: [id number] Author: Jesus Iyer MD Service: ? Author Type: Physician Type: Progress Notes Filed: 12/10/2022 1:19 PM Note Text: Brittany Portillo is a 77 year old female here for a Medicare Subsequent Annual Wellness Visit Health Risk Assessment In general, health is: Excellent Concerns with balance:Not at all Concerns with teeth or dentures:Not at all Concerns with sexual function:Not at all [place] anxious, stressed, angry, irritable, lonely, isolated, or had thoughts of hurting themself: Not at all Has little interest or pleasure in doing things: Not at all Bothered by feeling down, depressed, or hopeless: Several days Needs help with grocery shopping, cooking, housework, bathing, grooming, dressing, eating, sitting or standing, walking, using the toilet, handling finances, taking medications, using the telephone, or driving: No Following safety precautions in the home environment and vehicle: removed throw rugs from floors, installed grab bars in the bathroom, handrails in stairwells, having adequate lighting, wearing seatbelt at all times?: Yes Smokes cigarettes, vapes, or chew tobacco: No Eats healthy foods including fruits, vegetables, whole grains, and fiber-rich foods: Nearly every day Number of days per week engages in exercise: 0 days Average alcohol consumption: Monthly or less Current Providers Specialists: I have reviewed specialist-related care of the patient in the medical record. Current care team: Patient Care Team: Jesus Iyer MD as PCP - General (Internal Medicine) Sherif Malagon RN as Electric Fork Operator (Internal Medicine) Nursing Center Tutor- Dr. Sarabia Care Management Associate- Dr. Chelo Story General Surgeon- Dr. Carolyn Montero Berry Planter- Dr. Urbina Medical/Family history review Reviewed and updated problem list, medical/surgical/family/social history, medications, and allergies. Opioid use review Patient is not currently using opioids. Depression screening Depression Screening PHQ-2 Score PHQ-9 Score 03/19/2021 3 14 Depression screening tool completed and reviewed. Based on score and interview, patient is already diagnosed with depression. Screening tool discussed with patient, and I recommended continuing current plan of care. Cognitive screening Mini Cog Score: 5 Cognitive screening reviewed and no further action needed (score 3-5) Functional Observation Was the patient's timed Up AND Go test unsteady or ? 12 seconds? No Advance Care Planning End of Life planning discussed, including patient's advanced directive wishes: Yes Measurements BP 132/71 Pulse 75 Resp 16 Ht 5' 5 (1.65m) Wt 208 lb (94.3kg) BMI 34.61 kg/(m2). Visual acuity (required for Welcome to Medicare): follows with optometry/ophthalmology and Right: 20/70 Left: 20/ 40 Both: 20/50 Hearing Evaluation: wears hearing aids Assessment/Plan - Counseled on healthy diet and regular exercise - Discussed need for and benefit of weight loss. BMI 34.61 kg/(m2) - Fall avoidance - Vaccines recommended Shingrix at pharmacy - [facility] Instructions* Patient Instructions* Jesus Iyer MD - 12/10/2022 12:04 PM EDT Recombinant shingles vaccine (Shingrix) is recommended; 2 doses 2-6 months apart. Please read information, check with your insurance, and schedule vaccination at your local pharmacy. A prescription is not required. If you are certain you have coverage to receive this vaccine in the office, we can schedule this for you. New medication added: ATENOLOL for high blood pressure. documented in [facility] History of Present illness Narrative* Jesus Iyer MD - 12/10/2022 11:47 AM EDT This note was created using Wittlebee. Subjective Brittany Portillo is a 77 year old female was here for follow up. Her hypertension was not at goal. Edema was controlled on furosemide. Kidney function was stable. Lipids were controlled. Depression and anxiety were stable. She was using her CPAP nightly with benefit. Lipids were controlled. Her new concern is left pain for the past 2 months. She denied any injury, but knee pain was more bothersome with prolonged standing and ambulation. Tylenol helped knee pain. She had total knee replacement of the right in 2012. Review of Systems Constitutional: Negative for chills, fatigue, fever and unexpected weight change. HENT: Negative. Respiratory: Negative for cough and shortness of breath. Cardiovascular: Negative for chest pain, palpitations and leg swelling. Gastrointestinal: Negative for abdominal pain, constipation and diarrhea. Genitourinary: Negative. Musculoskeletal: Positive for arthralgias. Neurological: Negative. 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 amLODIPine (NORVASC) 5 mg tablet Take 1 tablet by mouth once daily. atorvastatin (LIPITOR) 10 mg tablet Take 1 tablet by mouth daily at bedtime. For cholesterol. FLUoxetine (PROZAC) 10 mg capsule Take 1 capsule by mouth once daily. methotrexate 2.5 mg tablet Take 7 tablets by mouth one time a week. ascorbic acid, vitamin C, (VITAMIN C) 500 mg tablet Take 500 mg by mouth once daily. aspirin, enteric coated (ADULT LOW DOSE ASPIRIN) 81 mg EC tablet Take 1 tablet by mouth once daily. COMPOUNDED PRESCRIPTION CPAP supplies hydroxychloroquine 200 mg ORAL tablet Take by mouth twice daily. cholecalciferol(VITAMIN D-3 1,000 UNIT CHEWABLE TAB) Take one(1) tablet daily. FOLIC ACID 1 MG TAB Take 2 mg by mouth once daily. furosemide (LASIX) 40 mg tablet Take 1 tablet by mouth once daily. No current facility-administered medications for this visit. Objective BP 132/71 (BP Site: Left Arm, BP Position: Sitting, BP Cuff Size: Large Adult) Pulse 75 Resp 16 Ht 165.1 cm (5' 5 ) Wt 94.3 kg (208 lb) BMI 34.61 kg/m Physical Exam Constitutional: General: She is not in acute distress. Cardiovascular: Rate and Rhythm: Normal rate and regular rhythm. Heart sounds: No murmur heard. No gallop. Pulmonary: Effort: Pulmonary effort is normal. Breath sounds: Normal breath sounds. Abdominal: Palpations: Abdomen is soft. Tenderness: There is no abdominal tenderness. Musculoskeletal: Left hip: Normal. No tenderness. Normal range of motion. Left knee: Swelling and deformity present. No effusion. Normal range of motion. No tenderness. Abnormal alignment. Normal meniscus. Right lower leg: No edema. Left lower leg: No edema. Comments: Left knee valgus deformity. Neurological: General: No focal deficit present. Mental Status: She is alert and oriented to person, place, and time. Comments: Using a cane. Psychiatric: Mood and Affect: Mood normal. Behavior: Behavior normal. Assessment and Plan 1. Medicare annual wellness visit, subsequent - ICD9: V70.0, ICD10: Z00.00 (primary diagnosis) See wellness note. 2. Primary hypertension - ICD9: 401.9, ICD10: I10 - suboptimal control - Continue current medication(s) - Add atenolol (Tenormin) - Encouraged dietary sodium restriction/DASH diet - Reviewed risks of HTN and principles of treatment - Goal of BP <130/80 - FUROSEMIDE 40 MG TABLET - ATENOLOL 25 MG TABLET. Discussed medication dosage, usage, goals of therapy, and side effects. 3. Edema of both legs - ICD9: 782.3, ICD10: R60.0 Controlled. - FUROSEMIDE 40 MG TABLET 4. Anxiety state - ICD9: 300.00, ICD10: F41.1 Controlled. 5. Depressive disorder - ICD9: 311, ICD10: F32.A Controlled. 6. REY on CPAP - ICD9: 327.23, V46.8, ICD10: G47.33, Z99.89 Using and benefiting from regular CPAP use. 7. Hyperlipidemia, unspecified hyperlipidemia type - ICD9: 272.4, ICD10: E78.5 - good control - Continue current medication. 8. Stage 3a chronic kidney disease (HCC) - ICD9: 585.3, ICD10: N18.31 - eGFR: Stable - Counseled on avoiding regular use of NSAIDs, adequate hydration, potential risk of IV dye 9. Hypertensive kidney disease with stage 3a chronic kidney disease (HCC) - ICD9: 403.90, 585.3, ICD10: I12.9, N18.31 - Stable. 10. Acute pain of left knee - ICD9: 719.46, ICD10: M25.562 Likely degenerative joint disease. Use knee support and continue Tylenol as needed. - XR KNEE GENERAL 4V AP BOTH/PA BOTH/LAT/MERC LEFT Kareem Iyer, MD * Jesus Iyer MD - 12/10/2022 11:32 AM EDT Brittany Portillo is a 77 year old female here for a Medicare Subsequent Annual Wellness Visit Health Risk Assessment In general, health is: Excellent Concerns with balance:Not at all Concerns with teeth or dentures:Not at all Concerns with sexual function:Not at all [place] anxious, stressed, angry, irritable, lonely, isolated, or had thoughts of hurting themself: Not at all Has little interest or pleasure in doing things: Not at all Bothered by feeling down, depressed, or hopeless: Several days Needs help with grocery shopping, cooking, housework, bathing, grooming, dressing, eating, sitting or standing, walking, using the toilet, handling finances, taking medications, using the telephone, or driving: No Following safety precautions in the home environment and vehicle: removed throw rugs from floors, installed grab bars in the bathroom, handrails in stairwells, having adequate lighting, wearing seatbelt at all times?: Yes Smokes cigarettes, vapes, or chew tobacco: No Eats healthy foods including fruits, vegetables, whole grains, and fiber-rich foods: Nearly every day Number of days per week engages in exercise: 0 days Average alcohol consumption: Monthly or less Current Providers Specialists: I have reviewed specialist-related care of the patient in the medical record. Current care team: Patient Care Team: Jesus Iyer MD as PCP - General (Internal Medicine) Sherif Malagon, GERMAN as Electric Fork Operator (Internal Medicine) Nursing Center Tutor- Dr. Sarabia Care Management Associate- Dr. Chelo Story General Surgeon- Dr. Carolyn Montero Berry Planter- Dr. Urbina Medical/Family history review Reviewed and updated problem list, medical/surgical/family/social history, medications, and allergies. Opioid use review Patient is not currently using opioids. Depression screening Depression Screening PHQ-2 Score PHQ-9 Score 03/19/2021 3 14 Depression screening tool completed and reviewed. Based on score and interview, patient is already diagnosed with depression. Screening tool discussed with patient, and I recommended continuing current plan of care. Cognitive screening Mini Cog Score: 5 Cognitive screening reviewed and no further action needed (score 3-5) Functional Observation Was the patient's timed Up & Go test unsteady or ? 12 seconds? No Advance Care Planning End of Life planning discussed, including patient's advanced directive wishes: Yes Measurements BP 132/71 Pulse 75 Resp 16 Ht 5' 5 (1.65m) Wt 208 lb (94.3kg) BMI 34.61 kg/(m^2). Visual acuity (required for Welcome to Medicare): follows with optometry/ophthalmology and Right: 20/70 Left: 20/ 40 Both: 20/50 Hearing Evaluation: wears hearing aids Assessment/Plan - Counseled on healthy diet and regular exercise - Discussed need for and benefit of weight loss. BMI 34.61 kg/(m^2) - Fall avoidance - Vaccines recommended Shingrix at pharmacy - Depression screening [facility] NotePatient Outreach ([facility]) BRITTANY PORTILLO ([id number]) 1945 F Date Time Provider Department 12/06/22 SHERIF MALAGON During your visit today, we recorded the following information about you: Sherif Malagon RN 12/06/2022 9:23 AM Signed [facility] TELEPHONIC OUTREACH Provider Action/FYI: CDM: CHF/ CKD Called Pt to verify symptom status or needs, unable to leave a message, line was busy. Contact made with patient: No - Unable to leave message Entered next patient outreach date for the following business day, if third call please enter next outreach date for one week in the Track Pt. Outreach - End Outreach Sherif Malagon RN December 06, 2022 8:13 AM Allergies As of Date: 12/06/2022 Noted Allergy Reaction CODEINE 07/17/2005 Comments: vision loss NITROGLYCERIN 07/17/2005 Comments: decreased HR PENICILLINS 07/17/2005 2 - Rash 12 - Shortness of Breath SULFA (SULFONAMIDE ANTIBIOTICS) 07/17/2005 2 - Rash ZITHROMAX (AZITHROMYCIN) 09/04/2005 6 - Diarrhea Date Reviewed: 10/14/2022 Reviewed by: Briana Moses LPN - Fully Assessed Reason for Visit: Community Monitoring Outreach [Other] Prescriptions as of 12/06/2022 - potassium chloride ER (KLOR-CON) 20 mEq tablet Take 1 tablet by mouth twice daily. - amLODIPine (NORVASC) 5 mg tablet Take 1 tablet by mouth once daily. - atorvastatin (LIPITOR) 10 mg tablet Take 1 tablet by mouth daily at bedtime. For cholesterol. - FLUoxetine (PROZAC) 10 mg capsule Take 1 capsule by mouth once daily. - furosemide (LASIX) 40 mg tablet Take 1 tablet by mouth once daily. - methotrexate 2.5 mg tablet Take 7 tablets by mouth one time a week. - ascorbic acid, vitamin C, (VITAMIN C) 500 mg tablet Take 500 mg by mouth once daily. - aspirin, enteric coated (ADULT LOW DOSE ASPIRIN) 81 mg EC tablet Take 1 tablet by mouth once daily. - COMPOUNDED PRESCRIPTION CPAP supplies - hydroxychloroquine 200 mg ORAL tablet Take by mouth twice daily. - cholecalciferol(VITAMIN D-3 1,000 UNIT CHEWABLE TAB) Take one(1) tablet daily. - FOLIC ACID 1 MG TAB Take 2 mg by mouth once daily. Problem List As Of Date 12/06/2022 Noted Resolved Type II or unspecified type diabetes mellitus w* 07/28/2014 HYPERLIPIDEMIA NEC/NOS [E78.5] 07/31/2015 Esophageal reflux [K21.9] 07/16/2017 Anxiety state [F41.1] Depressive disorder [F32.A] Osteoporosis [M81.0] PERS HX OF COLONIC MALIGNANCY [Z85.038] 07/17/2005 OVERWEIGHT [E66.9] 08/05/2006 01/25/2015 Malignant neoplasm of colon, unspecified site (* 11/07/2016 PAIN ABDOMEN( Periumbilical) [R10.33] 01/28/2007 01/25/2015 RECTAL BLEEDING (MELENA-578.1) [K62.5] 02/23/2007 11/07/2016 NEURALGIA INGUINAL [G57.90] 04/01/2007 11/07/2016 Rheumatoid arthritis of multiple sites with neg*12/21/2009 Obstructive sleep apnea [G47.33] 07/24/2010 11/07/2016 Hypertension [I10] 10/01/2010 Sleep apnea [G47.30] 10/01/2010 07/31/2015 Vitamin D deficiency [E55.9] 01/28/2011 SBO (small bowel obstruction) (HCC) [K56.609] 11/04/2012 11/07/2016 Partial small bowel obstruction (HCC) [K56.600] 03/12/2020 06/26/2020 DM type 2 (diabetes mellitus, type 2) (HCC) [E1*07/28/2014 11/20/2016 REY on CPAP [G47.33, Z99.89] 07/28/2014 Hyperlipidemia [E78.5] 07/31/2015 Type 2 diabetes mellitus without complication (*07/31/2015 11/20/2016 Rheumatoid arthritis involving both hands (HCC)*07/31/2015 11/07/2016 Abdominal discomfort [R10.9] 07/31/2015 11/07/2016 Generalized abdominal pain [R10.84] 08/07/2015 11/07/2016 Nausea [R11.0] 08/07/2015 11/07/2016 Abnormal mammogram [R92.8] 12/09/2016 08/18/2019 Stage 3a chronic kidney disease (HCC) [N18.31] 08/18/2019 Obesity, Class I, BMI 30-34.9 [E66.9] 08/18/2019 Fracture, [place], left, open [S52.532B] 04/20/2020 03/19/2021 Abnormality of gait [R26.9] 07/13/2020 Congestive heart failure (HCC) [I50.9] 12/11/2020 03/19/2021 Dyspnea on exertion [R06.09] 03/19/2021 05/09/2022 Edema of both legs [R60.0] 03/19/2021 Sciatica, right side [M54.31] 09/26/2021 Hypertensive kidney disease with stage 3a chron*10/10/2022 Encounter Status:Closed by SHERIF MALAGON on 12/06/22[facility]03-[facility]23 NoteHNO ID: [id number] Author: Sherif Malagon RN Service: ? Author Type: Registered Nurse Type: Progress Notes Filed: 12/06/2022 9:23 AM Note Text: [facility] TELEPHONIC OUTREACH Provider Action/FYI: CDM: CHF/ CKD Called Pt to verify symptom status or needs, unable to leave a message, line was busy. Contact made with patient: No - Unable to leave message Entered next patient outreach date for the following business day, if third call please enter next outreach date for one week in the Track Pt. Outreach - End Outreach Sherif Malagon RN December 06, 2022 8:13 [facility]03-17-2023 History of Present illness Narrative* Sherif Malagon RN - 12/06/2022 8:13 AM EDT [facility] TELEPHONIC OUTREACH Provider Action/FYI: CDM: CHF/ CKD Called Pt to verify symptom status or needs, unable to leave a message, line was busy. Contact made with patient: No - Unable to leave message Entered next patient outreach date for the following business day, if third call please enter next outreach date for one week in the Track Pt. Outreach - End Outreach Sherif Malagon RN December 06, 2022 8:13 AM documented in [facility] encounterR[facility]03-[facility]-2023 Miscellaneous Notes* Telephone Encounter - Wai Mcdonald Ma - 12/02/2022 1:44 PM EDT TOMEKA: 10/14/2022 Last refill: 05/08/2022 QTY: 180 Refills: 1 * Telephone Encounter - Janet Hough - 12/02/2022 12:03 PM EDT Patient has been identified by name and date of : Yes Requested Prescriptions Pending Prescriptions Disp Refills potassium chloride ER (KLOR-CON) 20 mEq tablet 180 tablet 1 Sig: Take 1 tablet by mouth twice daily. RX INSTRUCTIONS: Patient aware RX will be sent to pharmacy. No need to notify patient. Janet Hough documented in this encounterR[facility]02-[facility]-2023 Miscellaneous Notes* Telephone Encounter - Wai Mcdonald Ma - 11/08/2022 3:02 PM EST Patient notified, she states that her daughter is with her currently and she will take her. * Telephone Encounter - Sherin Contreras APRN.CNP - 11/08/2022 2:53 PM EST Patient needs immediate evaluation in ER Sherin Contreras APRN.CNP * Telephone Encounter - Joe Dobson LPN - 11/08/2022 2:34 PM EST Pt calls office /c update. She states this afternoon she blew her nose really hard and then 5 minutes later she felt funny , nose started bleeding (lasted for 7min or so), felt lightheaded. C/o realdull headache. She states her eyes feel sleepy , kind of blurry . She took 2 otc Tylenol and 30 min later took 1- 10mg prednisone. BP at time of call was 153/70 per pt home cuff. Pt states she feels real tired and headache went away slightly, but did come back when she stood up and walked up 5 steps to get her bp cuff. She denies CP, palpitations. No numbness/tingling. She states earlier this week she did feel a flutter in her heart while sitting, but does not report a hx of afib. Pt takes ASA 81mg daily. Advised pt that PCP would likely recommend ER for stat imaging. Joe Dobson LPN [facility] NoteHNO ID: [id number] Author: Sherif Malagon RN Service: ? Author Type: Registered Nurse Type: Progress Notes Filed: 11/05/2022 9:14 AM Note Text: INSIGHT CDM TELEPHONIC OUTREACH Provider Action/FYI: CDM: CHF/ CKD . Spk with Pt denies symptoms, BP 132/72, wt 211 lbs, Denies needs or concerns. Instructed to call PCP with any changes in condition Pt verbalized understanding and appreciation for call. Contact made with patient: Yes Patient identified by name and . Discussed care with patient It?s nice talking to you again. As a reminder, this is our bi-weekly check-in where I will be asking you questions about your health. This will only take a few minutes of your time. Is this a good time? Yes Symptoms What Chronic Disease(s) does the patient have: CHF and CKD Do you check your blood pressures at home? Yes, Enter readings: 132/72 Do you have new or worse shortness of breath with activity? No Do you have new or worsening trouble breathing while lying flat? No Do you have new or worsening swelling of legs, feet or ankles? No Do you feel like you are dehydrated for any reason, including not being able to eat or drink normally, or having less urine/much darker urine than normal for you? No Do you check your daily weight at home? Yes, Have you noticed a sudden gain in weight greater than three pounds in a day or three pounds in a week? No Are you having any other symptoms that your PCP needs to know about? No Symptoms: Symptom Escalation LAURA Education Ordered -: No The patient required an escalation for symptom(s)? No Medications Do you have any questions about taking your medication or which medications you should be on? No Do you need any medication refills at this time, including any of the medications you might take only when needed? No Social We would like to make sure you have what you need so that your basic needs are met- including your personal safety, food, housing, transportation and medications? Would you like to speak with a social work steam pipe fitter to help give you support for any of these needs? No It can be normal to feel anxious or down during a time like this. Would you like to talk to a mental health professional about how you have been feeling? No Closing Thank you for taking the time to talk with me today. We want to work with you to ensure that we are keeping your medical condition(s) well-controlled and to keep you healthy and out of the doctor's office or hospital. It?s also not too late for me to sign you up for automated weekly questionnaires through [employer]. This is an easy way for us to stay connected each week. Are you interested? No, I understand. We can always sign you up in the future if you change your mind. Just as a reminder, will continue to call you every other week to check in on your health. Our calls should take 10-15 minutes or less. Remember, if you have concerns in between our calls, please call your PCP's office right away. Thank you. Enter next patient outreach date for two weeks on the same day of the week as today in the Track Pt Outreach and End outreach. Sherif Malagon RN November 05, 2022 8:23 [facility]02-14-2023 History of Present illness Narrative* Sherif Malagon RN - 11/05/2022 8:23 AM EST INSIGHT CDM TELEPHONIC OUTREACH Provider Action/FYI: CDM: CHF/ CKD . Spk with Pt denies symptoms, BP 132/72, wt 211 lbs, Denies needs or concerns. Instructed to call PCP with any changes in condition Pt verbalized understanding and appreciation for call. Contact made with patient: Yes Patient identified by name and . Discussed care with patient It s nice talking to you again. As a reminder, this is our bi-weekly check-in where I will be asking you questions about your health. This will only take a few minutes of your time. Is this a good time? Yes Symptoms What Chronic Disease(s) does the patient have: CHF and CKD Do you check your blood pressures at home? Yes, Enter readings: 132/72 Do you have new or worse shortness of breath with activity? No Do you have new or worsening trouble breathing while lying flat? No Do you have new or worsening swelling of legs, feet or ankles? No Do you feel like you are dehydrated for any reason, including not being able to eat or drink normally, or having less urine/much darker urine than normal for you? No Do you check your daily weight at home? Yes, Have you noticed a sudden gain in weight greater than three pounds in a day or three pounds in a week? No Are you having any other symptoms that your PCP needs to know about? No Symptoms: Symptom Escalation LAURA Education Ordered -: No The patient required an escalation for symptom(s)? No Medications Do you have any questions about taking your medication or which medications you should be on? No Do you need any medication refills at this time, including any of the medications you might take only when needed? No Social We would like to make sure you have what you need so that your basic needs are met- including your personal safety, food, housing, transportation and medications? Would you like to speak with a social work steam pipe fitter to help give you support for any of these needs? No It can be normal to feel anxious or down during a time like this. Would you like to talk to a mental health professional about how you have been feeling? No Closing Thank you for taking the time to talk with me today. We want to work with you to ensure that we arekeeping your medical condition(s) well-controlled and to keep you healthy and out of the doctor's office or hospital. It s also not too late for me to sign you up for automated weekly questionnaires through [employer]. This is an easy way for us to stay connected each week. Are you interested? No, I understand. We can always sign you up in the future if you change your mind. Just as a reminder, will continue to call you every other week to check in on your health. Our calls should take 10-15 minutes or less. Remember, if you have concerns in between our calls, please call your PCP's office right away. Thank you. Enter next patient outreach date for two weeks on the same day of the week as today in the Track PtOutreach and End outreach. Sherif Malagon RN November 05, 2022 8:23 AM * Sherif Malagon RN - 11/04/2022 10:21 AM EST INSIGHT CDM TELEPHONIC OUTREACH Provider Action/FYI: CDM: CHF, CKD Called Pt line busy, unable to leave a message to verify symptom status or needs. Contact made with patient: No - Unable to leave message Entered next patient outreach date for the following business day, if third call please enter next outreach date for one week in the Track Pt. Outreach - End Outreach Sherif Malagon RN November 04, 2022 10:21 AM [facility] NotePatient Outreach ([facility]) BRITTANY PORTILLO ([id number]) 1945 F Date Time Provider Department 11/04/22 SHERIF MALAGON During your visit today, we recorded the following information about you: Sherif Malagon RN 11/05/2022 9:14 AM Signed BHAVIN LA[facility] TELEPHONIC OUTREACH Provider Action/FYI: CDM: CHF, CKD Called Pt line busy, unable to leave a message to verify symptom status or needs. Contact made with patient: No - Unable to leave message Entered next patient outreach date for the following business day, if third call please enter next outreach date for one week in the Track Pt. Outreach - End Outreach Sherif Malagon RN November 04, 2022 10:21 AM Sherif Malagon RN 11/05/2022 9:14 AM Signed [facility] TELEPHONIC OUTREACH Provider Action/FYI: CDM: CHF/ CKD . Spk with Pt denies symptoms, BP 132/72, wt 211 lbs, Denies needs or concerns. Instructed to call PCP with any changes in condition Pt verbalized understanding and appreciation for call. Contact made with patient: Yes Patient identified by name and . Discussed care with patient It?s nice talking to you again. As a reminder, this is our bi-weekly check-in where I will be asking you questions about your health. This will only take a few minutes of your time. Is this a good time? Yes Symptoms What Chronic Disease(s) does the patient have: CHF and CKD Do you check your blood pressures at home? Yes, Enter readings: 132/72 Do you have new or worse shortness of breath with activity? No Do you have new or worsening trouble breathing while lying flat? No Do you have new or worsening swelling of legs, feet or ankles? No Do you feel like you are dehydrated for any reason, including not being able to eat or drink normally, or having less urine/much darker urine than normal for you? No Do you check your daily weight at home? Yes, Have you noticed a sudden gain in weight greater than three pounds in a day or three pounds in a week? No Are you having any other symptoms that your PCP needs to know about? No Symptoms: Symptom Escalation LAURA Education Ordered -: No The patient required an escalation for symptom(s)? No Medications Do you have any questions about taking your medication or which medications you should be on? No Do you need any medication refills at this time, including any of the medications you might take only when needed? No Social We would like to make sure you have what you need so that your basic needs are met- including your personal safety, food, housing, transportation and medications? Would you like to speak with a social work steam pipe fitter to help give you support for any of these needs? No It can be normal to feel anxious or down during a time like this. Would you like to talk to a mental health professional about how you have been feeling? No Closing Thank you for taking the time to talk with me today. We want to work with you to ensure that we are keeping your medical condition(s) well-controlled and to keep you healthy and out of the doctor's office or hospital. It?s also not too late for me to sign you up for automated weekly questionnaires through [employer]. This is an easy way for us to stay connected each week. Are you interested? No, I understand. We can always sign you up in the future if you change your mind. Just as a reminder, will continue to call you every other week to check in on your health. Our calls should take 10-15 minutes or less. Remember, if you have concerns in between our calls, please call your PCP's office right away. Thank you. Enter next patient outreach date for two weeks on the same day of the week as today in the Track Pt Outreach and End outreach. Sherif Malagon RN November 05, 2022 8:23 AM Allergies As of Date: 11/04/2022 Noted Allergy Reaction CODEINE 07/17/2005 Comments: vision loss NITROGLYCERIN 07/17/2005 Comments: decreased HR PENICILLINS 07/17/2005 2 - Rash 12 - Shortness of Breath SULFA (SULFONAMIDE ANTIBIOTICS) 07/17/2005 2 - Rash ZITHROMAX (AZITHROMYCIN) 09/04/2005 6 - Diarrhea Date Reviewed: 10/14/2022 Reviewed by: Briana Moses LPN - Fully Assessed Reason for Visit: Community Monitoring Outreach [Other] Prescriptions as of 11/05/2022 - amLODIPine (NORVASC) 5 mg tablet Take 1 tablet by mouth once daily. - atorvastatin (LIPITOR) 10 mg tablet Take 1 tablet by mouth daily at bedtime. For cholesterol. - FLUoxetine (PROZAC) 10 mg capsule Take 1 capsule by mouth once daily. - furosemide (LASIX) 40 mg tablet Take 1 tablet by mouth once daily. - potassium chloride ER (K-DUR, KLOR-CON) 20 mEq tablet Take 1 tablet by mouth twice daily. - methotrexate 2.5 mg tablet Take 7 tablets by mouth one time a week. - ascorbic acid, vitamin C, (VITAMIN C) 500 mg tablet Take 500 mg by mouth once daily. - aspirin (more content not included)...[facility]02-13-2023 NoteHNO ID: [id number] Author: Sherif Malagon RN Service: ? Author Type: Registered Nurse Type: Progress Notes Filed: 11/05/2022 9:14 AM Note Text: INSIGHT CDM TELEPHONIC OUTREACH Provider Action/FYI: CDM: CHF, CKD Called Pt line busy, unable to leave a message to verify symptom status or needs. Contact made with patient: No - Unable to leave message Entered next patient outreach date for the following business day, if third call please enter next outreach date for one week in the Track Pt. Outreach - End Outreach Sherif Malagon RN November 04, 2022 10:21 [facility]02-09-2023 NotePatient Outreach ([facility]) BRITTANY PORTILLO ([id number]) 1945 F Date Time Provider Department 10/31/22 SHERIF MALAGON During your visit today, we recorded the following information about you: Sherif Malagon RN 11/04/2022 10:14 AM Signed INSIGHT CDM TELEPHONIC OUTREACH Provider Action/FYI: CDM: CHF Left a message to verify symptom status, instructed to call PCP with any changes in condition or needs. Contact made with patient: No - Left message Hello my name is Sherif Malagon RN your Gang Tailer [facility] I am calling today for your bi-weekly check in. I am sorry I missed your call. I will reach out to you again tomorrow. (if the third call I will reach out to you again next week) Enter next patient outreach date for the following business day using the Track Pt Outreach. End outreach. Sherif Malagon RN October 31, 2022 11:34 AM Allergies As of Date: 10/31/2022 Noted Allergy Reaction CODEINE 07/17/2005 Comments: vision loss NITROGLYCERIN 07/17/2005 Comments: decreased HR PENICILLINS 07/17/2005 2 - Rash 12 - Shortness of Breath SULFA (SULFONAMIDE ANTIBIOTICS) 07/17/2005 2 - Rash ZITHROMAX (AZITHROMYCIN) 09/04/2005 6 - Diarrhea Date Reviewed: 10/14/2022 Reviewed by: Briana Moses LPN - Fully Assessed Reason for Visit: Community Monitoring Outreach [Other] Prescriptions as of 11/04/2022 - amLODIPine (NORVASC) 5 mg tablet Take 1 tablet by mouth once daily. - atorvastatin (LIPITOR) 10 mg tablet Take 1 tablet by mouth daily at bedtime. For cholesterol. - FLUoxetine (PROZAC) 10 mg capsule Take 1 capsule by mouth once daily. - furosemide (LASIX) 40 mg tablet Take 1 tablet by mouth once daily. - potassium chloride ER (K-DUR, KLOR-CON) 20 mEq tablet Take 1 tablet by mouth twice daily. - methotrexate 2.5 mg tablet Take 7 tablets by mouth one time a week. - ascorbic acid, vitamin C, (VITAMIN C) 500 mg tablet Take 500 mg by mouth once daily. - aspirin, enteric coated (ADULT LOW DOSE ASPIRIN) 81 mg EC tablet Take 1 tablet by mouth once daily. - COMPOUNDED PRESCRIPTION CPAP supplies - hydroxychloroquine 200 mg ORAL tablet Take by mouth twice daily. - cholecalciferol(VITAMIN D-3 1,000 UNIT CHEWABLE TAB) Take one(1) tablet daily. - FOLIC ACID 1 MG TAB Take 2 mg by mouth once daily. Problem List As Of Date 10/31/2022 Noted Resolved Type II or unspecified type diabetes mellitus w* 07/28/2014 HYPERLIPIDEMIA NEC/NOS [E78.5] 07/31/2015 Esophageal reflux [K21.9] 07/16/2017 Anxiety state [F41.1] Depressive disorder [F32.A] Osteoporosis [M81.0] PERS HX OF COLONIC MALIGNANCY [Z85.038] 07/17/2005 OVERWEIGHT [E66.9] 08/05/2006 01/25/2015 Malignant neoplasm of colon, unspecified site (* 11/07/2016 PAIN ABDOMEN( Periumbilical) [R10.33] 01/28/2007 01/25/2015 RECTAL BLEEDING (MELENA-578.1) [K62.5] 02/23/2007 11/07/2016 NEURALGIA INGUINAL [G57.90] 04/01/2007 11/07/2016 Rheumatoid arthritis of multiple sites with neg*12/21/2009 Obstructive sleep apnea [G47.33] 07/24/2010 11/07/2016 Hypertension [I10] 10/01/2010 Sleep apnea [G47.30] 10/01/2010 07/31/2015 Vitamin D deficiency [E55.9] 01/28/2011 SBO (small bowel obstruction) (HCC) [K56.609] 11/04/2012 11/07/2016 Partial small bowel obstruction (HCC) [K56.600] 03/12/2020 06/26/2020 DM type 2 (diabetes mellitus, type 2) (HCC) [E1*07/28/2014 11/20/2016 REY on CPAP [G47.33, Z99.89] 07/28/2014 Hyperlipidemia [E78.5] 07/31/2015 Type 2 diabetes mellitus without complication (*07/31/2015 11/20/2016 Rheumatoid arthritis involving both hands (HCC)*07/31/2015 11/07/2016 Abdominal discomfort [R10.9] 07/31/2015 11/07/2016 Generalized abdominal pain [R10.84] 08/07/2015 11/07/2016 Nausea [R11.0] 08/07/2015 11/07/2016 Abnormal mammogram [R92.8] 12/09/2016 08/18/2019 Stage 3a chronic kidney disease (HCC) [N18.31] 08/18/2019 Obesity, Class I, BMI 30-34.9 [E66.9] 08/18/2019 Fracture, Colles, left, open [S52.532B] 04/20/2020 03/19/2021 Abnormality of gait [R26.9] 07/13/2020 Congestive heart failure (HCC) [I50.9] 12/11/2020 03/19/2021 Dyspnea on exertion [R06.09] 03/19/2021 05/09/2022 Edema of both legs [R60.0] 03/19/2021 Sciatica, right side [M54.31] 09/26/2021 Hypertensive kidney disease with stage 3a chron*10/10/2022 Encounter Status:Closed by SHERIF MALAGON on 11/04/22[facility]02-09-[facility]23 NoteHNO ID: [id number] Author: Sherif Malagon RN Service: ? Author Type: Registered Nurse Type: Progress Notes Filed: 11/04/2022 10:14 AM Note Text: INSIGHT CDM TELEPHONIC OUTREACH Provider Action/FYI: CDM: CHF Left a message to verify symptom status, instructed to call PCP with any changes in condition or needs. Contact made with patient: No - Left message Rd my name is Sherif Malagon RN your Gang Tailer from the [facility] I am calling today for your bi-weekly check in. I am sorry I missed your call. I will reach out to you again tomorrow. (if the third call I will reach out to you again next week) Enter next patient outreach date for the following business day using the Track Pt Outreach. End outreach. Sherif Malagon RN October 31, 2022 11:34 [facility]02-09-2023 History of Present illness Narrative* Sherif Malagon RN - 10/31/2022 11:34 AM EST INSIGHT CDM TELEPHONIC OUTREACH Provider Action/FYI: CDM: CHF Left a message to verify symptom status, instructed to call PCP with any changes in condition or needs. Contact made with patient: No - Left message Hello my name is Sherif Malagon RN your Gang Tailer from the [facility] I am callingtoday for your bi-weekly check in. I am sorry I missed your call. I will reach out to you again tomorrow. (if the third call I will reach out to you again next week) Enter next patient outreach date for the following business day using the Track Pt Outreach. End outreach. Sherif Malagon RN October 31, 2022 11:34 AM [facility] NoteHNO ID: [id number] Author: Jesus Iyer MD Service: ? Author Type: Physician Type: Progress Notes Filed: 10/14/2022 12:49 PM Note Text: This note was created using [employer]. Subjective Brittany Portillo is a 77 year old female. She had no new concerns. She saw her wrapper operator last month and there was discussion about pros and cons of another stress test. Symptoms of chest heaviness and dyspnea were stable, so continued medical management was recommended. Her lipids needed updating. Her arthritis was controlled. She was using her CPAP regularly with benefit. Review of Systems Constitutional: Negative. Respiratory: Positive for chest tightness. Negative for cough, shortness of breath and wheezing. Cardiovascular: Positive for palpitations. Negative for chest pain and leg swelling. Gastrointestinal: Negative. Neurological: Negative. ACTIVE PROBLEM LIST Anxiety State Depressive Disorder Osteoporosis Personal History of Malignant Neoplasm of Large Intestine Rheumatoid Arthritis of Multiple Sites With Negative Rheumatoid Factor (Hcc) Hypertension Vitamin D Deficiency Rey On Cpap Hyperlipidemia Stage 3a Chronic Kidney Disease (Hcc) Obesity, Class I, Bmi 30-34.9 Abnormality of Gait Edema of Both Legs Sciatica, Right Side Hypertensive Kidney Disease With Stage 3a Chronic Kidney Disease (Hcc) Current Outpatient Medications Medication Sig atorvastatin (LIPITOR) 10 mg tablet Take 1 tablet by mouth daily at bedtime. For cholesterol. FLUoxetine (PROZAC) 10 mg capsule Take 1 capsule by mouth once daily. furosemide (LASIX) 40 mg tablet Take 1 tablet by mouth once daily. potassium chloride ER (K-DUR, KLOR-CON) 20 mEq tablet Take 1 tablet by mouth twice daily. amLODIPine (NORVASC) 5 mg tablet Take 1 tablet by mouth once daily. methotrexate 2.5 mg tablet Take 7 tablets by mouth one time a week. ascorbic acid, vitamin C, (VITAMIN C) 500 mg tablet Take 500 mg by mouth once daily. aspirin, enteric coated (ADULT LOW DOSE ASPIRIN) 81 mg EC tablet Take 1 tablet by mouth once daily. COMPOUNDED PRESCRIPTION CPAP supplies hydroxychloroquine 200 mg ORAL tablet Take by mouth twice daily. cholecalciferol(VITAMIN D-3 1,000 UNIT CHEWABLE TAB) Take one(1) tablet daily. FOLIC ACID 1 MG TAB Take 2 mg by mouth once daily. No current facility-administered medications for this visit. Objective BP 128/76 (BP Site: Left Arm, BP Position: Sitting, BP Cuff Size: Large Adult) Pulse 74 Temp (!) 35.8 ?C (96.5 ?F) (Temporal) Resp 20 Ht 167.6 cm (5' 6 ) Wt 96.2 kg (212 lb) BMI 34.22 kg/m? Physical Exam Constitutional: General: She is not in acute distress. Cardiovascular: Rate and Rhythm: Normal rate and regular rhythm. Heart sounds: No murmur heard. No gallop. Pulmonary: Effort: Pulmonary effort is normal. Breath sounds: Normal breath sounds. Musculoskeletal: Right lower leg: No edema. Left lower leg: No edema. Neurological: General: No focal deficit present. Mental Status: She is alert. Assessment and Plan 1. Stage 3a chronic kidney disease (HCC) - ICD9: 585.3, ICD10: N18.31 (primary diagnosis) - Recheck labs. 2. Primary hypertension - ICD9: 401.9, ICD10: I10 - good control - Continue current medication(s) - Her home BP log showed stage 1 hypertension. Bring wrist machine for next visit. - Goal of BP <130/80 - AMLODIPINE 5 MG TABLET 3. 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 4. Hyperlipidemia, unspecified hyperlipidemia type - ICD9: 272.4, ICD10: E78.5 - to be determined upon return of lab results - Continue current medication. - COMP METABOLIC PANEL - LIPID PANEL BASIC Jesus Iyer, [facility]01-05-2023 NoteHNO ID: [id number] Author: Sherif Malagon, RN Service: ? Author Type: Registered Nurse Type: Progress Notes Filed: 09/26/2022 3:05 PM Note Text: INSIGHT CDM TELEPHONIC OUTREACH Provider Action/FYI: Routed updates to Dr. Iyer CDM: CHF/ CKD Spk with Pt she notes periods of increased chronic Sob with exertion, denies current Sob, wheezing, coughing, or edema. Speaking in full sentences, No respiratory distress. Completed 09/18/[address] Stroy Cardiology, Dr. Story is aware of changes in Sob, he discussed having a Stress test, Pt will consider, unsure if she wants to proceed. Pt noted adherent with medication, will start weighing self daily and will check home BP and advised to call PCP/ Cardiology with any changes in symptoms or condition,she verbalized understanding. Contact made with patient: Yes Patient identified by name and . Discussed care with patient It?s nice talking to you again. As a reminder, this is our bi-weekly check-in where I will be asking you questions about your health. This will only take a few minutes of your time. Is this a good time? Yes Symptoms What Chronic Disease(s) does the patient have: CHF Do you check your blood pressures at home? Yes, Enter readings: Not taken Do you have new or worse shortness of breath with activity? Yes Do you have new or worsening trouble breathing while lying flat? No Do you have new or worsening swelling of legs, feet or ankles? No Do you feel like you are dehydrated for any reason, including not being able to eat or drink normally, or having less urine/much darker urine than normal for you? No Do you check your daily weight at home? Yes, Have you noticed a sudden gain in weight greater than three pounds in a day or three pounds in a week? No Are you having any other symptoms that your PCP needs to know about? Yes Symptoms: intermittent Sob with exertion Symptom Escalation LAURA Education Ordered -: No The patient required an escalation for symptom(s)? No Medications Do you have any questions about taking your medication or which medications you should be on? No Do you need any medication refills at this time, including any of the medications you might take only when needed? No Social We would like to make sure you have what you need so that your basic needs are met- including your personal safety, food, housing and medications? Would you like to speak with a social work steam pipe fitter to help give you support for any of these needs? No It can be normal to feel anxious or down during a time like this. Would you like to talk to a mental health professional about how you have been feeling? No Closing Thank you for taking the time to talk with me today. We want to work with you to ensure that we are keeping your medical condition(s) well-controlled and to keep you healthy and out of the doctor's office or hospital. It?s also not too late for me to sign you up for automated weekly questionnaires through [employer]. This is an easy way for us to stay connected each week. Are you interested? No, I understand. We can always sign you up in the future if you change your mind. Just as a reminder, will continue to call you every other week to check in on your health. Our calls should take 10-15 minutes or less. Remember, if you have concerns in between our calls, please call your PCP's office right away. Thank you. Enter next patient outreach date for two weeks on the same day of the week as today in the Track Pt Outreach and End outreach. Sherif Malagon RN September 26, 2022 2:20 [facility]01-05-2023 History of Present illness Narrative* Sherfi Malagon RN - 09/26/2022 2:20 PM EST INSIGHT CDM TELEPHONIC OUTREACH Provider Action/FYI: Routed updates to Dr. Elio WILLIAM: CHF/ CKD Spk with Pt she notes periods of increased chronic Sob with exertion, denies current Sob, wheezing,coughing, or edema. Speaking in full sentences, No respiratory distress. Completed 09/18/[address] Story Cardiology, Dr. Story is aware of changes in Sob, hediscussed having a Stress test, Pt will consider, unsure if she wants to proceed. Pt noted adherent with medication, will start weighing self daily and will check home BP and advised to call PCP/ Cardiology with any changes in symptoms or condition,she verbalized understanding. Contact made with patient: Yes Patient identified by name and . Discussed care with patient It s nice talking to you again. As a reminder, this is our bi-weekly check-in where I will be asking you questions about your health. This will only take a few minutes of your time. Is this a good time? Yes Symptoms What Chronic Disease(s) does the patient have: CHF Do you check your blood pressures at home? Yes, Enter readings: Not taken Do you have new or worse shortness of breath with activity? Yes Do you have new or worsening trouble breathing while lying flat? No Do you have new or worsening swelling of legs, feet or ankles? No Do you feel like you are dehydrated for any reason, including not being able to eat or drink normally, or having less urine/much darker urine than normal for you? No Do you check your daily weight at home? Yes, Have you noticed a sudden gain in weight greater than three pounds in a day or three pounds in a week? No Are you having any other symptoms that your PCP needs to know about? Yes Symptoms: intermittent Sob with exertion Symptom Escalation LAURA Education Ordered -: No The patient required an escalation for symptom(s)? No Medications Do you have any questions about taking your medication or which medications you should be on? No Do you need any medication refills at this time, including any of the medications you might take only when needed? No Social We would like to make sure you have what you need so that your basic needs are met- including your personal safety, food, housing and medications? Would you like to speak with a social work steam pipe fitter to help give you support for any of these needs? No It can be normal to feel anxious or down during a time like this. Would you like to talk to a mental health professional about how you have been feeling? No Closing Thank you for taking the time to talk with me today. We want to work with you to ensure that we arekeeping your medical condition(s) well-controlled and to keep you healthy and out of the doctor's office or hospital. It s also not too late for me to sign you up for automated weekly questionnaires through [employer]. This is an easy way for us to stay connected each week. Are you interested? No, I understand. We can always sign you up in the future if you change your mind. Just as a reminder, will continue to call you every other week to check in on your health. Our calls should take 10-15 minutes or less. Remember, if you have concerns in between our calls, please call your PCP's office right away. Thank you. Enter next patient outreach date for two weeks on the same day of the week as today in the Track PtOutreach and End outreach. Sherif Malagon RN September 26, 2022 2:20 PM [facility] NotePatient Outreach ([facility]) BRITTANY PORTILLO ([id number]) 1945 F Date Time Provider Department 09/26/22 SHERIF MALAGON During your visit today, we recorded the following information about you: Sherif Malagon RN 09/26/2022 3:05 PM Signed INSIGHT CD TELEPHONIC OUTREACH Provider Action/FYI: Routed updates to Dr. Elio WILLIAM: CHF/ CKD Spk with Pt she notes periods of increased chronic Sob with exertion, denies current Sob, wheezing, coughing, or edema. Speaking in full sentences, No respiratory distress. Completed 09/18/[address] Story Cardiology, Dr. Story is aware of changes in Sob, he discussed having a Stress test, Pt will consider, unsure if she wants to proceed. Pt noted adherent with medication, will start weighing self daily and will check home BP and advised to call PCP/ Cardiology with any changes in symptoms or condition,she verbalized understanding. Contact made with patient: Yes Patient identified by name and . Discussed care with patient It?s nice talking to you again. As a reminder, this is our bi-weekly check-in where I will be asking you questions about your health. This will only take a few minutes of your time. Is this a good time? Yes Symptoms What Chronic Disease(s) does the patient have: CHF Do you check your blood pressures at home? Yes, Enter readings: Not taken Do you have new or worse shortness of breath with activity? Yes Do you have new or worsening trouble breathing while lying flat? No Do you have new or worsening swelling of legs, feet or ankles? No Do you feel like you are dehydrated for any reason, including not being able to eat or drink normally, or having less urine/much darker urine than normal for you? No Do you check your daily weight at home? Yes, Have you noticed a sudden gain in weight greater than three pounds in a day or three pounds in a week? No Are you having any other symptoms that your PCP needs to know about? Yes Symptoms: intermittent Sob with exertion Symptom Escalation LAURA Education Ordered -: No The patient required an escalation for symptom(s)? No Medications Do you have any questions about taking your medication or which medications you should be on? No Do you need any medication refills at this time, including any of the medications you might take only when needed? No Social We would like to make sure you have what you need so that your basic needs are met- including your personal safety, food, housing and medications? Would you like to speak with a social work steam pipe fitter to help give you support for any of these needs? No It can be normal to feel anxious or down during a time like this. Would you like to talk to a mental health professional about how you have been feeling? No Closing Thank you for taking the time to talk with me today. We want to work with you to ensure that we are keeping your medical condition(s) well-controlled and to keep you healthy and out of the doctor's office or hospital. It?s also not too late for me to sign you up for automated weekly questionnaires through [employer]. This is an easy way for us to stay connected each week. Are you interested? No, I understand. We can always sign you up in the future if you change your mind. Just as a reminder, will continue to call you every other week to check in on your health. Our calls should take 10-15 minutes or less. Remember, if you have concerns in between our calls, please call your PCP's office right away. Thank you. Enter next patient outreach date for two weeks on the same day of the week as today in the Track Pt Outreach and End outreach. Sherif Malagon RN September 26, 2022 2:20 PM Allergies As of Date: 09/26/2022 Noted Allergy Reaction CODEINE 07/17/2005 Comments: vision loss NITROGLYCERIN 07/17/2005 Comments: decreased HR PENICILLINS 07/17/2005 2 - Rash 12 - Shortness of Breath SULFA (SULFONAMIDE ANTIBIOTICS) 07/17/2005 2 - Rash ZITHROMAX (AZITHROMYCIN) 09/04/2005 6 - Diarrhea Date Reviewed: 05/10/2022 Reviewed by: Brittany Navarro LPN - Fully Assessed Reason for Visit: Community Monitoring Outreach [Other] Prescriptions as of 09/26/2022 - atorvastatin (LIPITOR) 10 mg tablet Take 1 tablet by mouth daily at bedtime. For cholesterol. - FLUoxetine (PROZAC) 10 mg capsule Take 1 capsule by mouth once daily. - furosemide (LASIX) 40 mg tablet Take 1 tablet by mouth once daily. - potassium chloride ER (K-DUR, KLOR-CON) 20 mEq tablet Take 1 tablet by mouth twice daily. - amLODIPine (NORVASC) 5 mg tablet Take 1 tablet by mouth once daily. - methotrexate 2.5 mg tablet Take 7 tablets by mouth one time a week. - ascorbic acid, vitamin C, (VITAMIN C) 500 mg tablet Take 500 mg by mouth once daily. - aspirin, enteric coated (ADULT LOW DOSE ASPIRIN) 81 mg EC tablet Take 1 tablet by mouth o (more content not included)...[facility]12-05-2022 History of Present illness Narrative* Sherif Malagon RN - 08/26/2022 1:30 PM EST INSIGHT CDM TELEPHONIC OUTREACH Provider Action/FYI: Routed updates to Dr. Elio Card with Pt, she noted chronic Sob with exertion, Denies CP, worsening Sob, wheezing or fever. Pt has intermittent more frequent dry cough, had taken Robitussin which was effective Pt noted willtry Robitussin again. Occasional episodes of Nausea, hydrating well, appetite is good, wt 211 lbs. Instructed on symptom management, and need to schedule Appt with PCP/ EMISSIONS ENGINEER if cough/ nausea is not improved, or experiencing worsening symptoms. Pt verbalized understanding and appreciation for the call. Contact made with patient: Yes Patient identified by name and . Discussed care with patient It s nice talking to you again. As a reminder, this is our bi-weekly check-in where I will be asking you questions about your health. This will only take a few minutes of your time. Is this a good time? Yes Symptoms What Chronic Disease(s) does the patient have: CHF Do you check your blood pressures at home? Yes, Enter readings: 128/72 Do you have new or worse shortness of breath with activity? No Do you have new or worsening trouble breathing while lying flat? No Do you have new or worsening swelling of legs, feet or ankles? No Do you check your daily weight at home? Yes, Have you noticed a sudden gain in weight greater than three pounds in a day or three pounds in a week? No Are you having any other symptoms that your PCP needs to know about? Yes Symptom Escalation The patient required an escalation for symptom(s)? No Medications Do you have any questions about taking your medication or which medications you should be on? No Do you need any medication refills at this time, including any of the medications you might take only when needed? No Social We would like to make sure you have what you need so that your basic needs are met- including your personal safety, food, housing and medications? Would you like to speak with a social work steam pipe fitter to help give you support for any of these needs? No It can be normal to feel anxious or down during a time like this. Would you like to talk to a mental health professional about how you have been feeling? No Closing Thank you for taking the time to talk with me today. We want to work with you to ensure that we arekeeping your medical condition(s) well-controlled and to keep you healthy and out of the doctor's office or hospital. It s also not too late for me to sign you up for automated weekly questionnaires through [employer]. This is an easy way for us to stay connected each week. Are you interested? No, I understand. We can always sign you up in the future if you change your mind. Just as a reminder, will continue to call you every other week to check in on your health. Our calls should take 10-15 minutes or less. Remember, if you have concerns in between our calls, please call your PCP's office right away. Thank you. Enter next patient outreach date for two weeks on the same day of the week as today in the Track PtOutreach and End outreach. Sherif Malagon RN August 26, 2022 1:30 PM documented in this encounterR[facility]11-16-2022 Miscellaneous Notes* Telephone Encounter - Briana Moses LPN - 08/07/2022 9:47 AM EST Spoke to [facility], Patient does have new RX for Lasix, will get ready for Patient to pickup.Briana Moses LPN * Telephone Encounter - Winsome Campbell - 08/07/2022 8:56 AM ESTSummary: Refill Pt calling in requesting refill for: furosemide (LASIX) 40 mg tablet Has zero left and ran out yesterday Pharmacy: [facility] [id number] [place] [phone] [facility] - [phone] Thank you! Winsome Campbell documented in this encounterR[facility]11-04-2022 History of Present illness Narrative* Manas Guerra RN - 07/26/2022 11:01 AM EDT INSIGHT CDM TELEPHONIC OUTREACH Provider Action/FYI: Call Pt's cell, unable to leave a message to verify CHF/CKD other symptoms or needs. Contact made with patient: No - Unable to leave message Entered next patient outreach date for the following business day, if third call please enter next outreach date for one week in the Track Pt. Outreach - End Outreach Sherif Malagon RN July 26, 2022 11:01 AM documented in this encounterR[facility]11-03-2022 History of Present illness Narrative* Manas Guerra RN - 07/25/2022 12:15 PM EDT INSIGHT CDM TELEPHONIC OUTREACH Provider Action/FYI: Left a message to verify CHF/CKD other symptoms or needs. Contact made with patient: No - Left message Hello my name is Sherif Malagon RN your Gang Tailer from the [facility] I am callingtoday for your bi-weekly check in. I am sorry I missed your call. I will reach out to you again tomorrow. (if the third call I will reach out to you again next week) Enter next patient outreach date for the following business day using the Track Pt Outreach. End outreach. Sherif Malagon RN July 25, 2022 12:16 PM documented in this encounterR[facility]11-02-2022 Miscellaneous Notes* Telephone Encounter - Idania Adler RN - 07/24/2022 3:53 PM EDT Patient has been identified by name and date of : Yes Pharmacy phones for refill(s): Requested Prescriptions Pending Prescriptions Disp Refills atorvastatin (LIPITOR) 10 mg tablet 90 tablet 3 Sig: Take 1 tablet by mouth daily at bedtime. For cholesterol. FLUoxetine (PROZAC) 10 mg capsule 90 capsule 3 Sig: Take 1 capsule by mouth once daily. Date of last office visit in primary care: 05/09/22 Last 2 Encounter Wt Readings: Date: Wt: 05/10/2022 94.8 kg (209 lb) 05/09/2022 94.3 kg (208 lb) Previous labs/tests for medication: Diabetes: Hemoglobin A1C (%) Date Value 01/31/2018 5.1 11/15/2016 5.5 Cholesterol: HDL Cholesterol (mg/dL) Date Value 08/29/2020 68 LDL Cholesterol (mg/dL) Date Value 08/29/2020 69 ALT (U/L) Date Value 11/28/2020 18 Non HDL Cholesterol (mg/dL) Date Value 08/29/2020 82 Blood Pressure: BUN (mg/dL) Date Value 11/07/2021 26 Sodium (mmol/L) Date Value 11/07/2021 141 Last 1 Encounter BP Readings: Date: BP: 05/10/2022 150/72 Blood Counts: WBC (k/uL) Date Value 11/28/2020 7.44 RBC (m/uL) Date Value 11/28/2020 3.88 Hematocrit (%) Date Value 11/28/2020 34.4 Hemoglobin (g/dL) Date Value 11/28/2020 12.4 Platelet Count (k/uL) Date Value 11/28/2020 340 Liver Function: ALT (U/L) Date Value 11/28/2020 18 AST (U/L) Date Value 11/28/2020 23 Please advise. Thank you. Idania Adler RN documented in this encounterR[facility]10-13-2022 History of Present illness Narrative* aMnas Guerra RN - 07/04/2022 2:11 PM EDT INSIGHT CDM TELEPHONIC OUTREACH Provider Action/FYI: Routed updates to Dr. Elio Card with Pt she noted had vision changes started 6 mths ago, after her , No recent vision changes Pt was evaluated 07/03/[address] Urbina, he ordered an MRI which was completed at [facility],due to suspicion of a remote mini stroke, Brittany reported no acute findings. Pt reports the MRI will be sent to PCP. Brittany is caring for her Granddaughter, she is walking about 16017 steps per day, and noted feels very good, without weakness, she has chronic imbalance issues, uses a cane if needed. Denies needs or concerns. Contact made with patient: Yes Patient identified by name and . Discussed care with patient It s nice talking to you again. As a reminder, this is our bi-weekly check-in where I will be asking you questions about your health. This will only take a few minutes of your time. Is this a good time? Yes Symptoms What Chronic Disease(s) does the patient have: CHF and CKD Do you check your blood pressures at home? Yes, Enter readings: Not available Do you have new or worse shortness of breath with activity? No Do you have new or worsening trouble breathing while lying flat? No Do you have new or worsening swelling of legs, feet or ankles? No Do you feel like you are dehydrated for any reason, including not being able to eat or drink normally, or having less urine/much darker urine than normal for you? No Do you check your daily weight at home? Yes, Have you noticed a sudden gain in weight greater than three pounds in a day or three pounds in a week? No Are you having any other symptoms that your PCP needs to know about? No Symptom Escalation The patient required an escalation for symptom(s)? No Medications Do you have any questions about taking your medication or which medications you should be on? No Do you need any medication refills at this time, including any of the medications you might take only when needed? No Social We would like to make sure you have what you need so that your basic needs are met- including your personal safety, food, housing and medications? Would you like to speak with a social work steam pipe fitter to help give you support for any of these needs? No It can be normal to feel anxious or down during a time like this. Would you like to talk to a mental health professional about how you have been feeling? No Closing Thank you for taking the time to talk with me today. We want to work with you to ensure that we arekeeping your medical condition(s) well-controlled and to keep you healthy and out of the doctor's office or hospital. It s also not too late for me to sign you up for automated weekly questionnaires through [employer]. This is an easy way for us to stay connected each week. Are you interested? No, I understand. We can always sign you up in the future if you change your mind. Just as a reminder, will continue to call you every other week to check in on your health. Our calls should take 10-15 minutes or less. Remember, if you have concerns in between our calls, please call your PCP's office right away. Thank you. Enter next patient outreach date for two weeks on the same day of the week as today in the Track PtOutreach and End outreach. Sherif Malagon RN July 04, 2022 2:11 PM documented in this encounterRivers[facility]09-21-2022 History of Present illness Narrative* Manas Guerra RN - 06/12/2022 3:58 PM EDT INSIGHT CDM TELEPHONIC OUTREACH Provider Action/FYI: Spk with Pt, she denies CHF/ CKD or other symptoms or needs. BP 130/65, wt 208 lbs Contact made with patient: Yes Patient identified by name and . Discussed care with patient It s nice talking to you again. As a reminder, this is our bi-weekly check-in where I will be asking you questions about your health. This will only take a few minutes of your time. Is this a good time? Yes Symptoms What Chronic Disease(s) does the patient have: CHF and CKD Do you check your blood pressures at home? Yes, BP 130/65 Do you have new or worse shortness of breath with activity? No Do you have new or worsening trouble breathing while lying flat? No Do you have new or worsening swelling of legs, feet or ankles? No Do you feel like you are dehydrated for any reason, including not being able to eat or drink normally, or having less urine/much darker urine than normal for you? No Do you check your daily weight at home? Yes, Have you noticed a sudden gain in weight greater than three pounds in a day or three pounds in a week? No Are you having any other symptoms that your PCP needs to know about? No Symptom Escalation The patient required an escalation for symptom(s)? No Medications Do you have any questions about taking your medication or which medications you should be on? No Do you need any medication refills at this time, including any of the medications you might take only when needed? No Social We would like to make sure you have what you need so that your basic needs are met- including your personal safety, food, housing and medications? Would you like to speak with a social work steam pipe fitter to help give you support for any of these needs? No It can be normal to feel anxious or down during a time like this. Would you like to talk to a mental health professional about how you have been feeling? No Closing Thank you for taking the time to talk with me today. We want to work with you to ensure that we arekeeping your medical condition(s) well-controlled and to keep you healthy and out of the doctor's office or hospital. It s also not too late for me to sign you up for automated weekly questionnaires through [employer]. This is an easy way for us to stay connected each week. Are you interested? No, I understand. We can always sign you up in the future if you change your mind. Just as a reminder, will continue to call you every other week to check in on your health. Our calls should take 10-15 minutes or less. Remember, if you have concerns in between our calls, please call your PCP's office right away. Thank you. Enter next patient outreach date for two weeks on the same day of the week as today in the Track PtOutreach and End outreach. Sherif Malagon RN June 12, 2022 3:58 PM * Manas Guerra RN - 06/10/2022 4:23 PM EDT inSight CDM Engagement Provider Action/FYI: Called Pt left a message to verify CHF/ CKD or other symptoms or needs. Contact Made with Patient: No, first attempt, left message. Rd Portillo. This is Sherif Malagon RN your Gang Tailer from the [facility].I am calling to check in with you concerning the [employer] questionnaire you have been receiving [employer]. I will call you again tomorrow and am looking forward to speaking with you. (Gang Tailer enters next day in next patient outreach ) Sherif Malagon RN June 10, 2022 4:23 PM documented in this encounterRiverside [facility] Hospital08-19-2022 History of Present illness Narrative* Puja Betts MD - 05/10/2022 4:23 PM EDT Brittany Portillo 1945 REFERRING PHYSICIAN: MD Venu CHIEF COMPLAINT: Hospital Follow Up ([facility] follow up, small bowel obstruction) HPI: The patient is a 77 year old female was admitted for small bowel obstruction 05/05/2022 to 05/07/2022. She presents for follow up of her admission. She denies fevers. She denies obstipation. She denies abdominal pain. PAST MEDICAL HISTORY Diagnosis Date Anxiety state, unspecified Bowel obstruction (HCC) 2021 Congestive heart failure (HCC) 12/11/2020 COVID-19 04/30/2022 Home test+ with symptoms Depressive disorder, not elsewhere classified Esophageal reflux GERD Fracture, Colles, left, open 04/20/2020 Hypertension Internal hemorrhoids with other complication Malignant neoplasm of colon, unspecified site 2001 colo-rectal cancer Obesity, unspecified REY on CPAP 07/28/2014 Osteoporosis, unspecified Other and unspecified hyperlipidemia Partial small bowel obstruction (HCC) 10/03/2021 and 03/12/2020 Polymyalgia rheumatica (HCC) Rheumatoid arthritis (HCC) 12/21/2009 Rheumatoid arthritis 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) 12/21/2009 Dr. Sarabia. Small bowel obstruction, partial (HCC) 05/05/202205/2011; 10/26/12; 09/2021. Recurrent. Snoring Type II or unspecified type diabetes mellitus without mention of complication, not stated as uncontrolled 2000 PAST SURGICAL HISTORY Procedure Laterality Date BREAST BIOPSY NEEDLE LEFT Left 04/21/2019 benign BX BREAST W/DEVICE 1ST LESION STEREOTACTIC GUID Left 12/16/2016 DELIVERY ONLY 1981 , low cervical. 3 times (69,71,82) COLECTOMY PARTIAL W/ANASTOMOSIS 03/15/2002 low ant. resection with anastomosis of high rectal cancer. COLONOSCOPY FLX DX W/COLLJ SPEC WHEN PFRMD 2001 Colonoscopy COLONOSCOPY FLX DX W/COLLJ SPEC WHEN PFRMD 10/11/2005 COLONOSCOPY FLX DX W/COLLJ SPEC WHEN PFRMD 03/13/2007 Patent low anastomosis, hemorrhoids COLONOSCOPY FLX DX W/COLLJ SPEC WHEN PFRMD 02/08/2011 COLONOSCOPY FLX DX W/COLLJ SPEC WHEN PFRMD 11/08/2015 EGD TRANSORAL BIOPSY SINGLE/MULTIPLE 09/08/2015 ENTEROLSS FRING INTSTINAL ADHESION SPX 01/28/2007 HAND TENDON AMINTA RECONSTRUCTION Left 04/21/2020 A1 aminta release of stenosis tenosynovitis; wrist hardware removal PAST SURGICAL HISTORY OF Right 07/28/2020 Right carpal tunnel repair REPAIR WRIST FRACTURE Left 12/24/2019 ORIF distal radius fx, dorsal spanning plate, debridement of open fracture, carpal tunnel release TOTAL KNEE REPLACEMENT Right 02/2013 UNLIS LAPS PX HRNAP HERNIORRHAPHY HERNIOTOMY 01/28/2007 VENTRAL Current Outpatient Medications Medication Sig furosemide (LASIX) 40 mg tablet Take 1 tablet by mouth once daily. potassium chloride ER (K-DUR, KLOR-CON) 20 mEq tablet Take 1 tablet by mouth twice daily. amLODIPine (NORVASC) 5 mg tablet Take 1 tablet by mouth once daily. FLUoxetine (PROZAC) 10 mg capsule Take 1 capsule by mouth once daily. atorvastatin (LIPITOR) 10 mg tablet Take 1 tablet by mouth daily at bedtime. For cholesterol. methotrexate 2.5 mg tablet Take 7 tablets by mouth one time a week. ascorbic acid, vitamin C, (VITAMIN C) 500 mg tablet Take 500 mg by mouth once daily. aspirin, enteric coated (ADULT LOW DOSE ASPIRIN) 81 mg EC tablet Take 1 tablet by mouth once daily. COMPOUNDED PRESCRIPTION CPAP supplies hydroxychloroquine 200 mg ORAL tablet Take by mouth twice daily. cholecalciferol(VITAMIN D-3 1,000 UNIT CHEWABLE TAB) Take one(1) tablet daily. FOLIC ACID 1 MG TAB Take 2 mg by mouth once daily. ALLERGIES: Codeine, Nitroglycerin, Penicillins, Sulfa (Sulfonamide Antibiotics), and Zithromax [Azithromycin] PERSONAL HISTORY: Social History Tobacco Use Smoking status: Former Packs/day: 1.50 Years: 36.00 Pack years: 54.00 Types: Cigarettes Quit date: 09/22/2000 Years since quittin.6 Smokeless tobacco: Never Tobacco comments: Quit 2000 Vaping Use Vaping Use: Never used Substance Use Topics Alcohol use: No Comment: one glass of wine (special occasions) Drug use: No FAMILY HISTORY Problem Relation Age of Onset Cancer Mother liver Hypertension Mother Diabetes Mother Arthritis Mother Coronary Artery Disease Father of mi Diabetes Sister Blood Disease Sister leukemia Diabetes Sister Coronary Artery Disease Sister Diabetes Brother Coronary Artery Disease Brother Coronary Artery Disease Brother Colon Cancer Paternal Grandfather Cancer Maternal Uncle throat Arthritis Sister The review of systems data was entered by the nurse and reviewed by me Nursing Notes: Brittany Navarro LPN 05/10/2022 4:03 PM Signed REVIEW OF SYSTEMS: General: The patient notes fatigue, denies weight loss, denies weight gain, denies feeling hot, anddenies feelings of cold. Eyes: The patient denies glaucoma, denies eye injury/surgery, wears glasses or contacts. Ear/Nose/Throat: The patient denies allergies, denies hayfever, notes ear infections, and denies bloody noses. Cardiovascular: The patient denies chest pain, denies heart disease, notes high blood pressure,denies cardiac stent, denies prior heart attack, denies irregular heart beat, notes high cholesterol, denies poor circulation, denies heart failure, other cardiac issues, denies claudication, denies cold feet, denies peripheral arterial stent. Respiratory: The patient denies tuberculosis, denies pneumonia, denies frequent cough, denies pulmonary embolism, denies shortness of breath, and denies coughing up blood. Gastrointestinal: The patient denies difficulty swallowing, notes acid reflux, denies ulcers, notesvomiting, denies jaundice/hepatitis, denies gallbladder problems, denies black or tarry stools, notes hemorrhoids, notes bleeding from rectum, notes diverticulitis, notes constipation, notes diarrhea, denies loss of stool control, and notes hernias. Kidney/Bladder: The patient denies kidney stones, notes urine infections, and denies bloody urine. Skin: The patient notes a history of skin cancer, denies bleeding/changing moles, and notes a history of skin rash. Neurologic: The patient denies a history of epilepsy/convulsions, notes headaches, denies head/spinal injuries, and denies stroke/TIA. Psychiatric: The patient denies psychiatric medications, notes depression, and denies voices, denies substance abuse. Endocrine: The patient denies thyroid disorders, denies diabetes, and denies hormonal problems. Hematologic: The patient notes a history of bruising, denies bleeding, and notes anemia, denies blood clots. Infections: The patient notes a history of measles and mumps, denies rheumatic fever, and denies sexually transmitted diseases. Musculoskeletal: The patient notes back pain/injury, denies back problems, notes sciatica, denies knee/foot trouble, denies arthritis, or denies gout. When was patient's last Mammogram screening? 2020 Last Colonoscopy: 2015 Brittany Navarro LPN PHYSICAL EXAMINATION: General: The patient is 77 year old female, well nourished, well hydrated in no acute distress. Thepatient is oriented to time, place, and person. VITALS: Blood pressure 150/72, pulse 105, temperature 36.3 C (97.4 F), height 167.6 cm (5' 6 ), weight 94.8 kg (209 lb), SpO2 96 %. Body mass index is 33.73 kg/m . Head - Normocephalic. EOM intact with sclera clear and no icterus noted. . Neck - supple with no jugular venous distention noted. Trachea is midline. Lungs - clear to auscultation. Normal breath sounds. No rales/rhonchi/wheezing noted. No labored breathing noted, such as retractions. No cough heard. Heart - normal S1 and S2 auscultated. No rubs/clicks/murmurs noted. Regular rate. Abdomen - soft and benign. No tenderness noted to deep palpation. Extremities - no calf tenderness noted. No pitting edema noted. Skin - normal skin integrity. Neurological - gait normal, no focal deficits noted. Psych - calm and appropriate Assessment IMPRESSION: episode of small bowel obstruction resolved PLAN: I have discussed the above with the patient. I have encouraged patient to drink plenty of fluids to avoid dehydration. I have also encouraged patient to be on a low residue diet. Patient to return to her PCP for medical care. Return to clinic if any worsening signs/symptoms. The patient acknowledges above. I have answered all questions to the patient s satisfaction and the patient has no further questions. I have confirmed and edited as necessary, the PFSH and ROS obtained by others. . Diagnoses: (K56.50) Intermittent small bowel obstruction due to adhesions (HCC) (primary encounter diagnosis) Return to Clinic: The patient is instructed to follow-up with me as above. I spent a total of 21 minutes on the date of the service which included preparing to see the patient with review of any pertinent laboratory studies/radiological imaging/medical records from other medical facilities such as [facility], [id number] patient care, obtaining oral medical history from the patient in this encounter, performing a medically appropriate examination, counseling and educating the patient/family/caregiver, and completing appropriate medical documentation. Puja Btets MD documented [facility] Nurse Note* Brittany Navarro, JANET - 05/10/2022 4:00 PM EDT REVIEW OF SYSTEMS: General: The patient notes fatigue, denies weight loss, denies weight gain, denies feeling hot, anddenies feelings of cold. Eyes: The patient denies glaucoma, denies eye injury/surgery, wears glasses or contacts. Ear/Nose/Throat: The patient denies allergies, denies hayfever, notes ear infections, and denies bloody noses. Cardiovascular: The patient denies chest pain, denies heart disease, notes high blood pressure,denies cardiac stent, denies prior heart attack, denies irregular heart beat, notes high cholesterol, denies poor circulation, denies heart failure, other cardiac issues, denies claudication, denies cold feet, denies peripheral arterial stent. Respiratory: The patient denies tuberculosis, denies pneumonia, denies frequent cough, denies pulmonary embolism, denies shortness of breath, and denies coughing up blood. Gastrointestinal: The patient denies difficulty swallowing, notes acid reflux, denies ulcers, notesvomiting, denies jaundice/hepatitis, denies gallbladder problems, denies black or tarry stools, notes hemorrhoids, notes bleeding from rectum, notes diverticulitis, notes constipation, notes diarrhea, denies loss of stool control, and notes hernias. Kidney/Bladder: The patient denies kidney stones, notes urine infections, and denies bloody urine. Skin: The patient notes a history of skin cancer, denies bleeding/changing moles, and notes a history of skin rash. Neurologic: The patient denies a history of epilepsy/convulsions, notes headaches, denies head/spinal injuries, and denies stroke/TIA. Psychiatric: The patient denies psychiatric medications, notes depression, and denies voices, denies substance abuse. Endocrine: The patient denies thyroid disorders, denies diabetes, and denies hormonal problems. Hematologic: The patient notes a history of bruising, denies bleeding, and notes anemia, denies blood clots. Infections: The patient notes a history of measles and mumps, denies rheumatic fever, and denies sexually transmitted diseases. Musculoskeletal: The patient notes back pain/injury, denies back problems, notes sciatica, denies knee/foot trouble, denies arthritis, or denies gout. When was patient's last Mammogram screening? 2020 Last Colonoscopy: 2015 Brittany Navarro LPN documented in [facility] History of Present illness Narrative* Manas Guerra RN - 05/07/2022 1:35 PM EDT [facility] TELEPHONIC OUTREACH Provider Action/FYI: Call to Pt left a message to verify CHF symptom status, and needs. Contact made with patient: No - Left message Hello my name is Sherif Malagon RN your Gang Tailer from the [facility] I am callingtoday for your bi-weekly check in. I am sorry I missed your call. I will reach out to you again tomorrow. (if the third call I will reach out to you again next week) Enter next patient outreach date for the following business day using the Track Pt Outreach. End outreach. Sherif Malagon RN May 07, 2022 1:35 PM * Manas Guerra RN - 05/06/2022 10:33 AM EDT [facility] TELEPHONIC OUTREACH Provider Action/FYI: Call to Pt left a message to verify CHF symptom status, and needs. Contact made with patient: No - Left message Hello my name is Sherif Malagon RN your Gang Tailer from the [facility] I am callingtoday for your bi-weekly check in. I am sorry I missed your call. I will reach out to you again tomorrow. (if the third call I will reach out to you again next week) Enter next patient outreach date for the following business day using the Track Pt Outreach. End outreach. Sherif Malagon RN May 06, 2022 10:33 AM documented in this encounterR[facility]07-29-2022 History of Present illness Narrative* Manas Guerra RN - 04/19/2022 11:[address] [facility] TELEPHONIC OUTREACH Provider Action/FYI: Call to Pt left a message on cell phone to verify CHF / CKD symptom status and needs. Contact made with patient: No - Left message Hello my name is Sherif Malagon RN your Gang Tailer from the [facility] I am callingtoday for your bi-weekly check in. I am sorry I missed your call. I will reach out to you again tomorrow. (if the third call I will reach out to you again next week) Enter next patient outreach date for the following business day using the Track Pt Outreach. End outreach. Sherif Malagon RN April 19, 2022 11:25 AM * Manas Guerra RN - 04/18/2022 1:58 PM EDT [facility] TELEPHONIC OUTREACH Provider Action/FYI: Call to Pt left a message on cell phone to verify CHF / CKD symptom status and needs. Contact made with patient: No - Left message Hello my name is Sherif Malagon RN your Gang Tailer from the [facility] I am callingtoday for your bi-weekly check in. I am sorry I missed your call. I will reach out to you again tomorrow. (if the third call I will reach out to you again next week) Enter next patient outreach date for the following business day using the Track Pt Outreach. End outreach. Sherif Malagon RN April 18, 2022 1:58 PM documented in this encounterR[facility]07-13-2022 History of Present illness Narrative* Manas Guerra RN - 04/03/2022 4:11 PM EDT [facility]LEPH[facility]IC [facility]RE[facility] Provider Action/FYI: Spk with Pt, she denies new or worsening CHF/ CKD symptoms or needs Contact made with patient: Yes Patient identified by name and . Discussed care with patient It s nice talking to you again. As a reminder, this is our bi-weekly check-in where I will be asking you questions about your health. This will only take a few minutes of your time. Is this a good time? Yes Symptoms What Chronic Disease(s) does the patient have: CHF Do you check your blood pressures at home? Yes, Enter readings: Not taken Do you have new or worse shortness of breath with activity? No Do you have new or worsening trouble breathing while lying flat? No Do you have new or worsening swelling of legs, feet or ankles? No Do you check your daily weight at home? Yes, Have you noticed a sudden gain in weight greater than three pounds in a day or three pounds in a week? No Are you having any other symptoms that your PCP needs to know about? No Symptom Escalation The patient required an escalation for symptom(s)? No Medications Do you have any questions about taking your medication or which medications you should be on? No Do you need any medication refills at this time, including any of the medications you might take only when needed? No Social We would like to make sure you have what you need so that your basic needs are met- including your personal safety, food, housing and medications? Would you like to speak with a social work steam pipe fitter to help give you support for any of these needs? No It can be normal to feel anxious or down during a time like this. Would you like to talk to a mental health professional about how you have been feeling? No Closing Thank you for taking the time to talk with me today. We want to work with you to ensure that we arekeeping your medical condition(s) well-controlled and to keep you healthy and out of the doctor's office or hospital. It s also not too late for me to sign you up for automated weekly questionnaires through [employer]. This is an easy way for us to stay connected each week. Are you interested? No, I understand. We can always sign you up in the future if you change your mind. Just as a reminder, will continue to call you every other week to check in on your health. Our calls should take 10-15 minutes or less. Remember, if you have concerns in between our calls, please call your PCP's office right away. Thank you. Enter next patient outreach date for two weeks on the same day of the week as today in the Track PtOutreach and End outreach. Sherif Malagon RN April 03, 2022 4:11 PM documented in this encounterR[facility]06-27-2022 History of Present illness Narrative* Manas Guerra RN - 03/18/2022 2:19 PM EDT [facility] Provider Action/FYI: Pt noted she is feeling OK, and denies new or worsening CHF or CKD symptoms or needs. Contact made with patient: Yes Patient identified by name and . Discussed care with patient It s nice talking to you again. As a reminder, this is our bi-weekly check-in where I will be asking you questions about your health. This will only take a few minutes of your time. Is this a good time? Yes Symptoms What Chronic Disease(s) does the patient have: CHF and CKD Do you check your blood pressures at home? No Do you have new or worse shortness of breath with activity? No Do you have new or worsening trouble breathing while lying flat? No Do you have new or worsening swelling of legs, feet or ankles? No Do you feel like you are dehydrated for any reason, including not being able to eat or drink normally, or having less urine/much darker urine than normal for you? No Do you check your daily weight at home? Yes, Have you noticed a sudden gain in weight greater than three pounds in a day or three pounds in a week? No Are you having any other symptoms that your PCP needs to know about? No Symptom Escalation The patient required an escalation for symptom(s)? No Medications Do you have any questions about taking your medication or which medications you should be on? No Do you need any medication refills at this time, including any of the medications you might take only when needed? No Social We would like to make sure you have what you need so that your basic needs are met- including your personal safety, food, housing and medications? Would you like to speak with a social work steam pipe fitter to help give you support for any of these needs? No It can be normal to feel anxious or down during a time like this. Would you like to talk to a mental health professional about how you have been feeling? No Closing Thank you for taking the time to talk with me today. We want to work with you to ensure that we arekeeping your medical condition(s) well-controlled and to keep you healthy and out of the doctor's office or hospital. It s also not too late for me to sign you up for automated weekly questionnaires through [employer]. This is an easy way for us to stay connected each week. Are you interested? No, I understand. We can always sign you up in the future if you change your mind. Just as a reminder, will continue to call you every other week to check in on your health. Our calls should take 10-15 minutes or less. Remember, if you have concerns in between our calls, please call your PCP's office right away. Thank you. Enter next patient outreach date for two weeks on the same day of the week as today in the Track PtOutreach and End outreach. Sherif Malagon RN March 18, 2022 2:19 PM documented in this encounterR[facility]06-21-2022 History of Present illness Narrative* Manas Guerra RN - 03/12/2022 11:41 AM EDT [facility]RE[facility] Provider Action/FYI: Called Pt left a message to verify CHF / CKD or other symptoms and needs. Contact made with patient: No - Left message Rd my name is Sherif Malagno RN your Gang Tailer from the [facility] I am callingtoday for your bi-weekly check in. I am sorry I missed your call. I will reach out to you again tomorrow. (if the third call I will reach out to you again next week) Enter next patient outreach date for the following business day using the Track Pt Outreach. End outreach. Sherif Malagon RN March 12, 2022 11:41 AM * Manas Guerra RN - 03/11/2022 1:28 PM EDT [facility] TELEPHONIC OUTREACH Provider Action/FYI: Call to Pt left a message to verify CHF / CKD symptom status and needs Contact made with patient: No - Left message Hello my name is Sherif Malagon RN your Gang Tailer from the [facility] I am callingtoday for your bi-weekly check in. I am sorry I missed your call. I will reach out to you again tomorrow. (if the third call I will reach out to you again next week) Enter next patient outreach date for the following business day using the Track Pt Outreach. End outreach. Sherif Malagon RN March 11, 2022 1:28 PM documented in this encounterR[facility]06-17-2022 History of Present illness Narrative* Manas Guerra RN - 03/08/2022 3:[address] [facility] TELEPHONIC OUTREACH Provider Action/FYI: Call to Pt left a message on cell phone to verify CHF / CKD symptom status and needs. Contact made with patient: No - Left message Hello my name is Sherif Malagon RN your Gang Tailer from the [facility] I am callingtoday for your bi-weekly check in. I am sorry I missed your call. I will reach out to you again tomorrow. (if the third call I will reach out to you again next week) Enter next patient outreach date for the following business day using the Track Pt Outreach. End outreach. Sherif Malagon RN March 08, 2022 3:37 PM documented in this encounterR[facility]06-09-2022 History of Present illness Narrative* Manas Guerra RN - 02/28/2022 2:01 PM EDT [facility] TELEPH[facility] OUTREACH Provider Action/FYI: Call to Pt left a message on cell phone to verify CHF / CKD symptom status and needs. Contact made with patient: No - Left message Hello my name is Sherif Malagon RN your Gang Tailer from the [facility] I am callingtoday for your bi-weekly check in. I am sorry I missed your call. I will reach out to you again tomorrow. (if the third call I will reach out to you again next week) Enter next patient outreach date for the following business day using the Track Pt Outreach. End outreach. Sherif Malagon RN February 28, 2022 2:01 PM * Manas Guerra RN - 02/27/2022 10:01 AM EDT [facility] Provider Action/FYI: Call to Pt to verify CHF / CKD symptom status and needs, no answer. Contact made with patient: No - Unable to leave message Entered next patient outreach date for the following business day, if third call please enter next outreach date for one week in the Track Pt. Outreach - End Outreach Sherif Malagon RN February 27, 2022 10:01 AM documented in this encounterR[facility]06-02-2022 History of Present illness Narrative* Manas Guerra RN - 02/21/2022 1:27 PM EDT [facility] TELEPHONIC OUTREACH Provider Action/FYI: Call to Pt left a message to verify CHF/ CKD or other symptom status and needs Contact made with patient: No - Left message Hello my name is Sherif Malagon RN your Gang Tailer from the [facility] I am callingtoday for your bi-weekly check in. I am sorry I missed your call. I will reach out to you again tomorrow. (if the third call I will reach out to you again next week) Enter next patient outreach date for the following business day using the Track Pt Outreach. End outreach. Sherif Malagon RN February 21, 2022 1:27 PM * Manas Guerra RN - 02/20/2022 4:30 PM EDT [facility] TELEPHONIC OUTREACH Provider Action/FYI: Call to Pt left a message to verify CHF/ CKD or other symptom status or needs Contact made with patient: No - Left message My name is Sherif Malagon RN, [facility]. I am calling regarding your recent visit with our Virtual Provider. Sorry that I am not able to speak with you. If you have a problem that needs to addressed by your Physician, please contact your Primary Care Provider's office. - END OUTREACH Sherif Malagon RN February 20, 2022 4:30 PM documented in this encounterRivers[facility]05-19-2022 History of Present illness Narrative* Manas Guerra RN - 02/07/2022 4:[address] [facility] TELEPHONIC OUTREACH Provider Action/FYI: Call to Pt left a message to verify CHF/ CKD symptom status and needs. Contact made with patient: No - Left message Hello my name is Sherif Malagon RN your Gang Tailer from the [facility] I am calling today for your bi-weekly check in. I am sorry I missed your call. I will reach out to you again tomorrow. (if the third call I will reach out to you again next week) Enter next patient outreach date forthe following day using the Track Pt Outreach. End outreach. Sherif Malagon RN February 07, 2022 4:08 PM * Manas Guerra RN - 02/06/2022 3:35 PM EDT [facility] TELEPHONIC OUTREACH Provider Action/FYI: Call to Pt left a message to verify CHF/ CKD symptom status and needs. Contact made with patient: No - Left message Rd my name is Sherif Malagon RN your Gang Tailer from the [facility] I am calling today for your bi-weekly check in. I am sorry I missed your call. I will reach out to you again tomorrow. (if the third call I will reach out to you again next week) Enter next patient outreach date forthe following using the Track Pt Outreach. End outreach. Sherif Malagon RN February 06, 2022 3:36 PM documented [facility] History of Present illness Narrative* Manas Guerra RN - 01/21/2022 1:14 PM EDT [facility] TELEPHONIC OUTREACH Provider Action/FYI: Spk with Pt, she denies new or worsening CHF/ CKD or other symptoms. Contact made with patient: Yes Patient identified by name and . Discussed care with patient It s nice talking to you again. As a reminder, this is our bi-weekly check-in where I will be asking you questions about your health. This will only take a few minutes of your time. Is this a good time? Yes Symptoms What Chronic Disease(s) does the patient have: CHF and CKD Do you check your blood pressures at home? Yes, Enter readings: Not avail Do you have new or worse shortness of breath with activity? No Do you have new or worsening trouble breathing while lying flat? No Do you have new or worsening swelling of legs, feet or ankles? No Do you feel like you are dehydrated for any reason, including not being able to eat or drink normally, or having less urine/much darker urine than normal for you? No Do you check your daily weight at home? Yes, Have you noticed a sudden gain in weight greater than three pounds in a day or three pounds in a week? No Are you having any other symptoms that your PCP needs to know about? No Symptom Escalation The patient required an escalation for symptom(s)? No Medications Do you have any questions about taking your medication or which medications you should be on? No Do you need any medication refills at this time, including any of the medications you might take only when needed? No Social We would like to make sure you have what you need so that your basic needs are met- including your personal safety, food, housing and medications? Would you like to speak with a social work steam pipe fitter to help give you support for any of these needs? No It can be normal to feel anxious or down during a time like this. Would you like to talk to a mental health professional about how you have been feeling? No Closing Thank you for taking the time to talk with me today. We want to work with you to ensure that we arekeeping your medical condition(s) well-controlled and to keep you healthy and out of the doctor's office or hospital. It s also not too late for me to sign you up for automated weekly questionnaires through [employer]. This is an easy way for us to stay connected each week. Are you interested? No, I understand. We can always sign you up in the future if you change your mind. Just as a reminder, will continue to call you every other week to check in on your health. Our calls should take 10-15 minutes or less. Remember, if you have concerns in between our calls, please call your PCP's office right away. Thank you. Enter next patient outreach date for two weeks on the same day of the week as today in the Track PtOutreach and End outreach. Sherif Malagon RN January 21, 2022 1:14 PM documented in this encounterR[facility] Miscellaneous Notes* Telephone Encounter - Sena Ram Pss - 01/19/2022 9:22 AM EDT Patient has been identified by name and date of : Yes Last office visit in this department: 11/30/2021 RX INSTRUCTIONS: Patient aware RX will be sent to pharmacy. No need to notify patient. Patient phones requesting refills as follows: Pending Prescriptions Disp Refills FUROSEMIDE 40 MG TABLET 90 tablet 1 Sig: Take 1 tablet by mouth once daily. KEVEN: No Please review and advise. Sena Ram Pss documented in this encounterR[facility]04-29-2022 History of Present illness Narrative* Manas Guerra RN - 01/18/2022 1:18 PM EDT [facility] TELEPHONIC OUTREACH Provider Action/FYI: Call to Pt left a message to verify CHF/ CKD or other symptoms and needs. Contact made with patient: No - Left message Hello my name is Sherif Malagon RN your Gang Tailer from the [facility] I am calling today for your bi-weekly check in. I am sorry I missed your call. I will reach out to you again tomorrow. (if the third call I will reach out to you again next week) Enter next patient outreach date forthe following business day using the Track Pt Outreach. End outreach. Sherif Malagon RN January 18, 2022 1:19 PM documented in this encounterR[facility]04[facility]28-[facility]22 History of Present illness Narrative* Manas Guerra RN - 01/17/2022 3:33 PM EDT [facility] TELEPHONIC OUTREACH Provider Action/FYI: Call to Pt left a message to verify CHF/CKD or other symptoms and needs. Contact made with patient: No - Left message Hello my name is Sherif Malagon RN your Gang Tailer from the [facility] I am calling today for your bi-weekly check in. I am sorry I missed your call. I will reach out to you again tomorrow. (if the third call I will reach out to you again next week) Enter next patient outreach date forthe following business day using the Track Pt Outreach. End outreach. Sehrif Malagon RN January 17, 2022 3:43 PM documented in this encounterR[facility]04-19-2022 History of Present illness Narrative* Manas Guerra RN - 01/08/2022 3:29 PM EDT [facility] TELEPHONIC OUTREACH Provider Action/FYI: Routed updates to Dr. Iyer Spk with Pt who reports intermittent chest heaviness, No CP or Sob, wheezing or edema currently. Pt instructed will need Appt with Dr. Iyer or seen in ED for CP or emergency symptoms. Pt verbalized understanding. Pt noted she feels the chest heaviness is due to grief. Pt reports is eating and hydrating, and is now sleeping better. Pt noted she has to spk with the Insurance tomorrow to establish medical Insurance coverage for herself, she has enough medications right now, Pt will contact PCP office if she needs refills. Contact made with patient: Yes Patient identified by name and . Discussed care with patient It s nice talking to you again. As a reminder, this is our bi-weekly check-in where I will be asking you questions about your health. This will only take a few minutes of your time. Is this a good time? Yes Symptoms What Chronic Disease(s) does the patient have: CHF and CKD Do you check your blood pressures at home? Yes, Enter readings: Not taken Do you have new or worse shortness of breath with activity? No Do you have new or worsening trouble breathing while lying flat? No Do you have new or worsening swelling of legs, feet or ankles? No Do you feel like you are dehydrated for any reason, including not being able to eat or drink normally, or having less urine/much darker urine than normal for you? No Do you check your daily weight at home? No Are you having any other symptoms that your PCP needs to know about? Yes Symptom Escalation The patient required an escalation for symptom(s)? No Medications Do you have any questions about taking your medication or which medications you should be on? No Do you need any medication refills at this time, including any of the medications you might take only when needed? No Social We would like to make sure you have what you need so that your basic needs are met- including your personal safety, food, housing and medications? Would you like to speak with a social work steam pipe fitter to help give you support for any of these needs? No It can be normal to feel anxious or down during a time like this. Would you like to talk to a mental health professional about how you have been feeling? No Closing Thank you for taking the time to talk with me today. We want to work with you to ensure that we arekeeping your medical condition(s) well-controlled and to keep you healthy and out of the doctor's office or hospital. It s also not too late for me to sign you up for automated weekly questionnaires through [employer]. This is an easy way for us to stay connected each week. Are you interested? No, I understand. We can always sign you up in the future if you change your mind. Just as a reminder, will continue to call you every other week to check in on your health. Our calls should take 10-15 minutes or less. Remember, if you have concerns in between our calls, please call your PCP's office right away. Thank you. Enter next patient outreach date for two weeks on the same day of the week as today in the Track PtOutreach and End outreach. Sherif Malagon RN January 08, 2022 3:30 PM * Mnaas Guerra RN - 01/07/2022 3:55 PM EDT [facility] TELEPHONIC OUTREACH Provider Action/FYI: Call to Pt left a message to verify CHF/ CKD or other symptom status, and needs Contact made with patient: No - Left message [place] my name is Sherif Malagon RN your Gang Tailer from the [facility] I am calling today for your bi-weekly check in. I am sorry I missed your call. I will reach out to you again tomorrow. (if the third call I will reach out to you again next week) Enter next patient outreach date forthe using the Track Pt Outreach. End outreach. Sherif Malagon RN January 07, 2022 3:55 PM documented in this encounterR[facility]04-13-2022 History of Present illness Narrative* Manas Guerra RN - 01/02/2022 11:[address] [facility] TELEPHONIC OUTREACH Provider Action/FYI: Call to Pt left a message to verify CHF/ CKD or other symptom status, and needs. Contact made with patient: No - Left message Rd my name is Sherif Malagon RN your Gang Tailer from the [facility] I am calling today for your bi-weekly check in. I am sorry I missed your call. I will reach out to you again tomorrow. (if the third call I will reach out to you again next week) Enter next patient outreach date forthe following business day using the Track Pt Outreach. End outreach. Sherif Malagon RN January 02, 2022 11:34 AM documented in this encounterR[facility]04-12-2022 History of Present illness Narrative* Manas Guerra RN - 01/01/2022 10:[address] [facility] TELEPHONIC OUTREACH Provider Action/FYI: Call to Pt left a message to verify CHF/ CKD or other symptom status, and needs. Contact made with patient: No - Left message Rd my name is Sherif Malagon RN your Gang Tailer from the [facility] I am calling today for your bi-weekly check in. I am sorry I missed your call. I will reach out to you again tomorrow. (if the third call I will reach out to you again next week) Enter next patient outreach date forthe following day using the Track Pt Outreach. End outreach. Sherif Malagon RN January 01, 2022 10:37 AM documented in this encounterR[facility]03-28-2022 History of Present illness Narrative* Manas Guerra RN - 12/17/2021 5:[address] [facility] TELEPHONIC OUTREACH Provider Action/FYI: Routed updates to Dr. Elio Card with Brittany she noted David last evening 12/17/21. Brittany denies CHF symptoms, denies needs. Pt's daughter lives nearby and son is coming from out of state. Contact made with patient: Yes Patient identified by name and . Discussed care with patient It s nice talking to you again. As a reminder, this is our bi-weekly check-in where I will be asking you questions about your health. This will only take a few minutes of your time. Is this a good time? Yes Symptoms What Chronic Disease(s) does the patient have: CHF and CKD Do you check your blood pressures at home? Yes, Enter readings: Not taken Do you have new or worse shortness of breath with activity? No Do you have new or worsening trouble breathing while lying flat? No Do you have new or worsening swelling of legs, feet or ankles? No Do you feel like you are dehydrated for any reason, including not being able to eat or drink normally, or having less urine/much darker urine than normal for you? No Do you check your daily weight at home? Yes, Have you noticed a sudden gain in weight greater than three pounds in a day or three pounds in a week? No Are you having any other symptoms that your PCP needs to know about? No Symptom Escalation The patient required an escalation for symptom(s)? No Medications Do you have any questions about taking your medication or which medications you should be on? No Do you need any medication refills at this time, including any of the medications you might take only when needed? No Social We would like to make sure you have what you need so that your basic needs are met- including your personal safety, food, housing and medications? Would you like to speak with a social work steam pipe fitter to help give you support for any of these needs? No It can be normal to feel anxious or down during a time like this. Would you like to talk to a mental health professional about how you have been feeling? No Closing Thank you for taking the time to talk with me today. We want to work with you to ensure that we arekeeping your medical condition(s) well-controlled and to keep you healthy and out of the doctor's office or hospital. It s also not too late for me to sign you up for automated weekly questionnaires through [employer]. This is an easy way for us to stay connected each week. Are you interested? No, I understand. We can always sign you up in the future if you change your mind. Just as a reminder, will continue to call you every other week to check in on your health. Our calls should take 10-15 minutes or less. Remember, if you have concerns in between our calls, please call your PCP's office right away. Thank you. Enter next patient outreach date for two weeks on the same day of the week as today in the Track PtOutreach and End outreach. Sherif Malagon RN December 17, 2021 5:12 PM documented in this encounterR[facility]03-25-[facility]22 History of Present illness Narrative* Manas Guerra RN - 12/14/2021 9:54 AM EDT [facility] TELEPHONIC OUTREACH Provider Action/FYI: Spk with Brittany who reports David is getting worse and going to [facility]patient [facility] for a few days. Requested a call back next week. Emotional support given Contact made with patient: Yes Patient identified by name and . Discussed care with patient It s nice talking to you again. As a reminder, this is our bi-weekly check-in where I will be asking you questions about your health. This will only take a few minutes of your time. Is this a good time? No - today is not a good time for the patient. Agree on a call back time and connect with the patient then. If applicable, update the next patient outreach date using the Track Pt Outreach. End outreach Sherif Malagon RN December 14, 2021 9:54 AM documented in this encounterR[facility]06-28-[facility]21 History of Past illness Narrative* Problem Noted Date Resolved Date Dyspnea on exertion 03/19/2021 05/09/2022 Congestive heart failure 12/11/2020 021 Fracture, Colles, left, open 04/20/2020 Partial small bowel obstruction 03/12/2020 06/26/2020 Abnormal mammogram 12/09/2016 08/18/2019 Generalized abdominal pain 08/07/201511/07 Nausea 08/07/2015 11/07/2016 Type 2 diabetes mellitus without complication 11/20/2016 Rheumatoid arthritis involving both hands 201411/07/2016 Abdominal discomfort 07/31/2015 11/07/2016 DM type 2 (diabetes mellitus, type 2) 07/28/2014 11/20/2016 SBO (small bowel obstruction) 11/04/2012 Sleep apnea 10/01/2010 07/31/2015 Obstructive sleep apnea 07/24/2010 11/07/19 17 Overview: Using c pap since 12.18.2003 Actual dx made prior to this. Had a machine when she came to [facility]. NEURALGIA INGUINAL 04/01/2007 11/07/2016 RECTAL BLEEDING (MELENA-578.1) 02/23/2007 0 11/07/2016 PAIN ABDOMEN( Periumbilical) 01/28/200702/2015 OVERWEIGHT 08/05/2006 01/25/2015 Type II or unspecified type diabetes mellitus without mention of complication, not stated as uncontrolled HYPERLIPIDEMIA NEC/NOS 5 Esophageal reflux 07/16/2017 Malignant neoplasm of colon, unspecified site 11/07/2016 Overview: colo-rectal cancer - colonoscopy - 13 March 2007 documented as of this encounter (statuses as of 05/11/2022) [facility] Past illness Narrative* Problem Noted Date Resolved Date Dyspnea on exertion 03/19/2021 05/09/2022 Congestive heart failure 12/11/2020 021 Fracture, Colles, left, open 04/20/2020 Partial small bowel obstruction 03/12/2020 06/26/2020 Abnormal mammogram 12/09/2016 08/18/2019 Generalized abdominal pain 08/07/201511/07 Nausea 08/07/2015 11/07/2016 Type 2 diabetes mellitus without complication 11/20/2016 Rheumatoid arthritis involving both hands 201411/07/2016 Abdominal discomfort 07/31/2015 11/07/2016 DM type 2 (diabetes mellitus, type 2) 07/28/2014 11/20/2016 SBO (small bowel obstruction) 11/04/2012 Sleep apnea 10/01/2010 07/31/2015 Obstructive sleep apnea 07/24/2010 11/07/19 17 Overview: Using c pap since 12.18.2003 Actual dx made prior to this. Had a machine when she came to [facility]. NEURALGIA INGUINAL 04/01/2007 11/07/2016 RECTAL BLEEDING (MELENA-578.1) 02/23/2007 0 11/07/2016 PAIN ABDOMEN( Periumbilical) 01/28/200702/2015 OVERWEIGHT 08/05/2006 01/25/2015 Type II or unspecified type diabetes mellitus without mention of complication, not stated as uncontrolled HYPERLIPIDEMIA NEC/NOS 5 Esophageal reflux 07/16/2017 Malignant neoplasm of colon, unspecified site 11/07/2016 Overview: colo-rectal cancer - colonoscopy - 13 March 2007 documented as of this encounter (statuses as of 06/12/2022) [facility] Past illness Narrative* Problem Noted Date Resolved Date Dyspnea on exertion 03/19/2021 05/09/2022 Congestive heart failure 12/11/2020 021 Fracture, Colles, left, open 04/20/2020 Partial small bowel obstruction 03/12/2020 06/26/2020 Abnormal mammogram 12/09/2016 08/18/2019 Generalized abdominal pain 08/07/201511/07 Nausea 08/07/2015 11/07/2016 Type 2 diabetes mellitus without complication 11/20/2016 Rheumatoid arthritis involving both hands 201411/07/2016 Abdominal discomfort 07/31/2015 11/07/2016 DM type 2 (diabetes mellitus, type 2) 07/28/2014 11/20/2016 SBO (small bowel obstruction) 11/04/2012 Sleep apnea 10/01/2010 07/31/2015 Obstructive sleep apnea 07/24/2010 11/07/19 17 Overview: Using c pap since 12.18.2003 Actual dx made prior to this. Had a machine when she came to [facility]. NEURALGIA INGUINAL 04/01/2007 11/07/2016 RECTAL BLEEDING (MELENA-578.1) 02/23/2007 0 11/07/2016 PAIN ABDOMEN( Periumbilical) 01/28/200702/2015 OVERWEIGHT 08/05/2006 01/25/2015 Type II or unspecified type diabetes mellitus without mention of complication, not stated as uncontrolled HYPERLIPIDEMIA NEC/NOS 5 Esophageal reflux 07/16/2017 Malignant neoplasm of colon, unspecified site 11/07/2016 Overview: colo-rectal cancer - colonoscopy - 13 March 2007 documented as of this encounter (statuses as of 07/04/2022) [facility] Narrative* Problem Noted Date Resolved Date Dyspnea on exertion 03/19/2021 05/09/2022 Congestive heart failure 12/11/2020 021 Fracture, Colles, left, open 04/20/2020 Partial small bowel obstruction 03/12/2020 06/26/2020 Abnormal mammogram 12/09/2016 08/18/2019 Generalized abdominal pain 08/07/201511/07 Nausea 08/07/2015 11/07/2016 Type 2 diabetes mellitus without complication 11/20/2016 Rheumatoid arthritis involving both hands 201411/07/2016 Abdominal discomfort 07/31/2015 11/07/2016 DM type 2 (diabetes mellitus, type 2) 07/28/2014 11/20/2016 SBO (small bowel obstruction) 11/04/2012 Sleep apnea 10/01/2010 07/31/2015 Obstructive sleep apnea 07/24/2010 11/07/19 17 Overview: Using c pap since 12.18.2003 Actual dx made prior to this. Had a machine when she came to [facility]. NEURALGIA INGUINAL 04/01/2007 11/07/2016 RECTAL BLEEDING (MELENA-578.1) 02/23/2007 0 11/07/2016 PAIN ABDOMEN( Periumbilical) 01/28/200702/2015 OVERWEIGHT 08/05/2006 01/25/2015 Type II or unspecified type diabetes mellitus without mention of complication, not stated as uncontrolled HYPERLIPIDEMIA NEC/NOS 5 Esophageal reflux 07/16/2017 Malignant neoplasm of colon, unspecified site 11/07/2016 Overview: colo-rectal cancer - colonoscopy - 13 March 2007 documented as of this encounter (statuses as of 07/24/2022) [facility] Narrative* Problem Noted Date Resolved Date Dyspnea on exertion 03/19/2021 05/09/2022 Congestive heart failure 12/11/2020 021 Fracture, Colles, left, open 04/20/2020 Partial small bowel obstruction 03/12/2020 06/26/2020 Abnormal mammogram 12/09/2016 08/18/2019 Generalized abdominal pain 08/07/201511/07 Nausea 08/07/2015 11/07/2016 Type 2 diabetes mellitus without complication 11/20/2016 Rheumatoid arthritis involving both hands 201411/07/2016 Abdominal discomfort 07/31/2015 11/07/2016 DM type 2 (diabetes mellitus, type 2) 07/28/2014 11/20/2016 SBO (small bowel obstruction) 11/04/2012 Sleep apnea 10/01/2010 07/31/2015 Obstructive sleep apnea 07/24/2010 11/07/19 17 Overview: Using c pap since 12.18.2003 Actual dx made prior to this. Had a machine when she came to [facility]. NEURALGIA INGUINAL 04/01/2007 11/07/2016 RECTAL BLEEDING (MELENA-578.1) 02/23/2007 0 11/07/2016 PAIN ABDOMEN( Periumbilical) 01/28/200702/2015 OVERWEIGHT 08/05/2006 01/25/2015 Type II or unspecified type diabetes mellitus without mention of complication, not stated as uncontrolled HYPERLIPIDEMIA NEC/NOS 5 Esophageal reflux 07/16/2017 Malignant neoplasm of colon, unspecified site 11/07/2016 Overview: colo-rectal cancer - colonoscopy - 13 March 2007 documented as of this encounter (statuses as of 07/25/2022) [facility] Narrative* Problem Noted Date Resolved Date Dyspnea on exertion 03/19/2021 05/09/2022 Congestive heart failure 12/11/2020 021 Fracture, Colles, left, open 04/20/2020 Partial small bowel obstruction 03/12/2020 06/26/2020 Abnormal mammogram 12/09/2016 08/18/2019 Generalized abdominal pain 08/07/201511/07 Nausea 08/07/2015 11/07/2016 Type 2 diabetes mellitus without complication 11/20/2016 Rheumatoid arthritis involving both hands 201411/07/2016 Abdominal discomfort 07/31/2015 11/07/2016 DM type 2 (diabetes mellitus, type 2) 07/28/2014 11/20/2016 SBO (small bowel obstruction) 11/04/2012 Sleep apnea 10/01/2010 07/31/2015 Obstructive sleep apnea 07/24/2010 11/07/19 17 Overview: Using c pap since 12.18.2003 Actual dx made prior to this. Had a machine when she came to [facility]. NEURALGIA INGUINAL 04/01/2007 11/07/2016 RECTAL BLEEDING (MELENA-578.1) 02/23/2007 0 11/07/2016 PAIN ABDOMEN( Periumbilical) 01/28/200702/2015 OVERWEIGHT 08/05/2006 01/25/2015 Type II or unspecified type diabetes mellitus without mention of complication, not stated as uncontrolled HYPERLIPIDEMIA NEC/NOS 5 Esophageal reflux 07/16/2017 Malignant neoplasm of colon, unspecified site 11/07/2016 Overview: colo-rectal cancer - colonoscopy - 13 March 2007 documented as of this encounter (statuses as of 07/26/2022) [facility] Narrative* Problem Noted Date Resolved Date Dyspnea on exertion 03/19/2021 05/09/2022 Congestive heart failure 12/11/2020 021 Fracture, Colles, left, open 04/20/2020 Partial small bowel obstruction 03/12/2020 06/26/2020 Abnormal mammogram 12/09/2016 08/18/2019 Generalized abdominal pain 08/07/201511/07 Nausea 08/07/2015 11/07/2016 Type 2 diabetes mellitus without complication 11/20/2016 Rheumatoid arthritis involving both hands 201411/07/2016 Abdominal discomfort 07/31/2015 11/07/2016 DM type 2 (diabetes mellitus, type 2) 07/28/2014 11/20/2016 SBO (small bowel obstruction) 11/04/2012 Sleep apnea 10/01/2010 07/31/2015 Obstructive sleep apnea 07/24/2010 11/07/19 17 Overview: Using c pap since 12.18.2003 Actual dx made prior to this. Had a machine when she came to [facility]. NEURALGIA INGUINAL 04/01/2007 11/07/2016 RECTAL BLEEDING (MELENA-578.1) 02/23/2007 0 11/07/2016 PAIN ABDOMEN( Periumbilical) 01/28/200702/2015 OVERWEIGHT 08/05/2006 01/25/2015 Type II or unspecified type diabetes mellitus without mention of complication, not stated as uncontrolled HYPERLIPIDEMIA NEC/NOS 5 Esophageal reflux 07/16/2017 Malignant neoplasm of colon, unspecified site 11/07/2016 Overview: colo-rectal cancer - colonoscopy - 13 March 2007 documented as of this encounter (statuses as of 08/07/2022) [facility]21 History of Past illness Narrative* Problem Noted Date Resolved Date Dyspnea on exertion 03/19/2021 05/09/2022 Congestive heart failure 12/11/2020 021 Fracture, Colles, left, open 04/20/2020 Partial small bowel obstruction 03/12/2020 06/26/2020 Abnormal mammogram 12/09/2016 08/18/2019 Generalized abdominal pain 08/07/201511/07 Nausea 08/07/2015 11/07/2016 Type 2 diabetes mellitus without complication 11/20/2016 Rheumatoid arthritis involving both hands 201411/07/2016 Abdominal discomfort 07/31/2015 11/07/2016 DM type 2 (diabetes mellitus, type 2) 07/28/2014 11/20/2016 SBO (small bowel obstruction) 11/04/2012 Sleep apnea 10/01/2010 07/31/2015 Obstructive sleep apnea 07/24/2010 11/07/19 17 Overview: Using c pap since 12.18.2003 Actual dx made prior to this. Had a machine when she came to [facility]. NEURALGIA INGUINAL 04/01/2007 11/07/2016 RECTAL BLEEDING (MELENA-578.1) 02/23/2007 0 11/07/2016 PAIN ABDOMEN( Periumbilical) 01/28/200702/2015 OVERWEIGHT 08/05/2006 01/25/2015 Type II or unspecified type diabetes mellitus without mention of complication, not stated as uncontrolled HYPERLIPIDEMIA NEC/NOS 5 Esophageal reflux 07/16/2017 Malignant neoplasm of colon, unspecified site 11/07/2016 Overview: colo-rectal cancer - colonoscopy - 13 March 2007 documented as of this encounter (statuses as of 08/26/2022) [facility] History of Past illness Narrative* Problem Noted Date Resolved Date Dyspnea on exertion 03/19/2021 05/09/2022 Congestive heart failure 12/11/2020 021 Fracture, Colles, left, open 04/20/2020 Partial small bowel obstruction 03/12/2020 06/26/2020 Abnormal mammogram 12/09/2016 08/18/2019 Generalized abdominal pain 08/07/201511/07 Nausea 08/07/2015 11/07/2016 Type 2 diabetes mellitus without complication 11/20/2016 Rheumatoid arthritis involving both hands 201411/07/2016 Abdominal discomfort 07/31/2015 11/07/2016 DM type 2 (diabetes mellitus, type 2) 07/28/2014 11/20/2016 SBO (small bowel obstruction) 11/04/2012 Sleep apnea 10/01/2010 07/31/2015 Obstructive sleep apnea 07/24/2010 11/07/19 17 Overview: Using c pap since 12.18.2003 Actual dx made prior to this. Had a machine when she came to [facility]. NEURALGIA INGUINAL 04/01/2007 11/07/2016 RECTAL BLEEDING (MELENA-578.1) 02/23/2007 0 11/07/2016 PAIN ABDOMEN( Periumbilical) 01/28/200702/2015 OVERWEIGHT 08/05/2006 01/25/2015 Type II or unspecified type diabetes mellitus without mention of complication, not stated as uncontrolled HYPERLIPIDEMIA NEC/NOS 5 Esophageal reflux 07/16/2017 Malignant neoplasm of colon, unspecified site 11/07/2016 Overview: colo-rectal cancer - colonoscopy - 13 March 2007 documented as of this encounter (statuses as of 09/27/2022) [facility] History of Past illness Narrative* Problem Noted Date Resolved Date Dyspnea on exertion 03/19/2021 05/09/2022 Congestive heart failure 12/11/2020 021 Fracture, Colles, left, open 04/20/2020 Partial small bowel obstruction 03/12/2020 06/26/2020 Abnormal mammogram 12/09/2016 08/18/2019 Generalized abdominal pain 08/07/201511/07 Nausea 08/07/2015 11/07/2016 Type 2 diabetes mellitus without complication 11/20/2016 Rheumatoid arthritis involving both hands 201411/07/2016 Abdominal discomfort 07/31/2015 11/07/2016 DM type 2 (diabetes mellitus, type 2) 07/28/2014 11/20/2016 SBO (small bowel obstruction) 11/04/2012 Sleep apnea 10/01/2010 07/31/2015 Obstructive sleep apnea 07/24/2010 11/07/19 17 Overview: Using c pap since 12.18.2003 Actual dx made prior to this. Had a machine when she came to [facility]. NEURALGIA INGUINAL 04/01/2007 11/07/2016 RECTAL BLEEDING (MELENA-578.1) 02/23/2007 0 11/07/2016 PAIN ABDOMEN( Periumbilical) 01/28/200702/2015 OVERWEIGHT 08/05/2006 01/25/2015 Type II or unspecified type diabetes mellitus without mention of complication, not stated as uncontrolled HYPERLIPIDEMIA NEC/NOS 5 Esophageal reflux 07/16/2017 Malignant neoplasm of colon, unspecified site 11/07/2016 Overview: colo-rectal cancer - colonoscopy - 13 March 2007 documented as of this encounter (statuses as of 11/04/2022) [facility] History of Past illness Narrative* Problem Noted Date Resolved Date Dyspnea on exertion 03/19/2021 05/09/2022 Congestive heart failure 12/11/2020 021 Fracture, Colles, left, open 04/20/2020 Partial small bowel obstruction 03/12/2020 06/26/2020 Abnormal mammogram 12/09/2016 08/18/2019 Generalized abdominal pain 08/07/201511/07 Nausea 08/07/2015 11/07/2016 Type 2 diabetes mellitus without complication 11/20/2016 Rheumatoid arthritis involving both hands 201411/07/2016 Abdominal discomfort 07/31/2015 11/07/2016 DM type 2 (diabetes mellitus, type 2) 07/28/2014 11/20/2016 SBO (small bowel obstruction) 11/04/2012 Sleep apnea 10/01/2010 07/31/2015 Obstructive sleep apnea 07/24/2010 11/07/19 17 Overview: Using c pap since 12.18.2003 Actual dx made prior to this. Had a machine when she came to [facility]. NEURALGIA INGUINAL 04/01/2007 11/07/2016 RECTAL BLEEDING (MELENA-578.1) 02/23/2007 0 11/07/2016 PAIN ABDOMEN( Periumbilical) 01/28/200702/2015 OVERWEIGHT 08/05/2006 01/25/2015 Type II or unspecified type diabetes mellitus without mention of complication, not stated as uncontrolled HYPERLIPIDEMIA NEC/NOS 5 Esophageal reflux 07/16/2017 Malignant neoplasm of colon, unspecified site 11/07/2016 Overview: colo-rectal cancer - colonoscopy - 13 March 2007 documented as of this encounter (statuses as of 11/05/2022) [facility] History of Past illness Narrative* Problem Noted Date Resolved Date Dyspnea on exertion 03/19/2021 05/09/2022 Congestive heart failure 12/11/2020 021 Fracture, Colles, left, open 04/20/2020 Partial small bowel obstruction 03/12/2020 06/26/2020 Abnormal mammogram 12/09/2016 08/18/2019 Generalized abdominal pain 08/07/201511/07 Nausea 08/07/2015 11/07/2016 Type 2 diabetes mellitus without complication 11/20/2016 Rheumatoid arthritis involving both hands 201411/07/2016 Abdominal discomfort 07/31/2015 11/07/2016 DM type 2 (diabetes mellitus, type 2) 07/28/2014 11/20/2016 SBO (small bowel obstruction) 11/04/2012 Sleep apnea 10/01/2010 07/31/2015 Obstructive sleep apnea 07/24/2010 11/07/19 17 Overview: Using c pap since 12.18.2003 Actual dx made prior to this. Had a machine when she came to [facility]. NEURALGIA INGUINAL 04/01/2007 11/07/2016 RECTAL BLEEDING (MELENA-578.1) 02/23/2007 0 11/07/2016 PAIN ABDOMEN( Periumbilical) 01/28/200702/2015 OVERWEIGHT 08/05/2006 01/25/2015 Type II or unspecified type diabetes mellitus without mention of complication, not stated as uncontrolled HYPERLIPIDEMIA NEC/NOS 5 Esophageal reflux 07/16/2017 Malignant neoplasm of colon, unspecified site 11/07/2016 Overview: colo-rectal cancer - colonoscopy - 13 March 2007 documented as of this encounter (statuses as of 11/08/2022) [facility] History of Past illness Narrative* Problem Noted Date Resolved Date Dyspnea on exertion 03/19/2021 05/09/2022 Congestive heart failure 12/11/2020 021 Fracture, Colles, left, open 04/20/2020 Partial small bowel obstruction 03/12/2020 06/26/2020 Abnormal mammogram 12/09/2016 08/18/2019 Generalized abdominal pain 08/07/201511/07 Nausea 08/07/2015 11/07/2016 Type 2 diabetes mellitus without complication 11/20/2016 Rheumatoid arthritis involving both hands 201411/07/2016 Abdominal discomfort 07/31/2015 11/07/2016 DM type 2 (diabetes mellitus, type 2) 07/28/2014 11/20/2016 SBO (small bowel obstruction) 11/04/2012 Sleep apnea 10/01/2010 07/31/2015 Obstructive sleep apnea 07/24/2010 11/07/19 17 Overview: Using c pap since 12.18.2003 Actual dx made prior to this. Had a machine when she came to [facility]. NEURALGIA INGUINAL 04/01/2007 11/07/2016 RECTAL BLEEDING (MELENA-578.1) 02/23/2007 0 11/07/2016 PAIN ABDOMEN( Periumbilical) 01/28/200702/2015 OVERWEIGHT 08/05/2006 01/25/2015 Type II or unspecified type diabetes mellitus without mention of complication, not stated as uncontrolled HYPERLIPIDEMIA NEC/NOS 5 Esophageal reflux 07/16/2017 Malignant neoplasm of colon, unspecified site 11/07/2016 Overview: colo-rectal cancer - colonoscopy - 13 March 2007 documented as of this encounter (statuses as of 12/02/2022) [facility] History of Past illness Narrative* Problem Noted Date Resolved Date Dyspnea on exertion 03/19/2021 05/09/2022 Congestive heart failure 12/11/2020 021 Fracture, Colles, left, open 04/20/2020 Partial small bowel obstruction 03/12/2020 06/26/2020 Abnormal mammogram 12/09/2016 08/18/2019 Generalized abdominal pain 08/07/201511/07 Nausea 08/07/2015 11/07/2016 Type 2 diabetes mellitus without complication 11/20/2016 Rheumatoid arthritis involving both hands 201411/07/2016 Abdominal discomfort 07/31/2015 11/07/2016 DM type 2 (diabetes mellitus, type 2) 07/28/2014 11/20/2016 SBO (small bowel obstruction) 11/04/2012 Sleep apnea 10/01/2010 07/31/2015 Obstructive sleep apnea 07/24/2010 11/07/19 17 Overview: Using c pap since 12.18.2003 Actual dx made prior to this. Had a machine when she came to [facility]. NEURALGIA INGUINAL 04/01/2007 11/07/2016 RECTAL BLEEDING (MELENA-578.1) 02/23/2007 0 11/07/2016 PAIN ABDOMEN( Periumbilical) 01/28/200702/2015 OVERWEIGHT 08/05/2006 01/25/2015 Type II or unspecified type diabetes mellitus without mention of complication, not stated as uncontrolled HYPERLIPIDEMIA NEC/NOS 5 Esophageal reflux 07/16/2017 Malignant neoplasm of colon, unspecified site 11/07/2016 Overview: colo-rectal cancer - colonoscopy - 13 March 2007 documented as of this encounter (statuses as of 12/06/2022) [facility] History of Past illness Narrative* Problem Noted Date Resolved Date Dyspnea on exertion 03/19/2021 05/09/2022 Congestive heart failure 12/11/2020 021 Abnormality of gait 07/13/2020 12/10/2022 Fracture, Colles, left, open 04/20/2020 Partial small bowel obstruction 03/12/2020 06/26/2020 Abnormal mammogram 12/09/2016 08/18/2019 Generalized abdominal pain 08/07/201511/07 Nausea 08/07/2015 11/07/2016 Type 2 diabetes mellitus without complication 11/20/2016 Rheumatoid arthritis involving both hands 201411/07/2016 Abdominal discomfort 07/31/2015 11/07/2016 DM type 2 (diabetes mellitus, type 2) 07/28/2014 11/20/2016 SBO (small bowel obstruction) 11/04/2012 Sleep apnea 10/01/2010 07/31/2015 Obstructive sleep apnea 07/24/2010 11/07/19 17 Overview: Using c pap since 12.18.2003 Actual dx made prior to this. Had a machine when she came to [facility]. NEURALGIA INGUINAL 04/01/2007 11/07/2016 RECTAL BLEEDING (MELENA-578.1) 02/23/2007 0 11/07/2016 PAIN ABDOMEN( Periumbilical) 01/28/200702/2015 OVERWEIGHT 08/05/2006 01/25/2015 Type II or unspecified type diabetes mellitus without mention of complication, not stated as uncontrolled HYPERLIPIDEMIA NEC/NOS 5 Esophageal reflux 07/16/2017 Malignant neoplasm of colon, unspecified site 11/07/2016 Overview: colo-rectal cancer - colonoscopy - 13 March 2007 documented as of this encounter (statuses as of 12/10/2022) [facility] History of Past illness Narrative* Problem Noted Date Resolved Date Dyspnea on exertion 03/19/2021 05/09/2022 Congestive heart failure 12/11/2020 021 Abnormality of gait 07/13/2020 12/10/2022 Fracture, Colles, left, open 04/20/2020 Partial small bowel obstruction 03/12/2020 06/26/2020 Abnormal mammogram 12/09/2016 08/18/2019 Generalized abdominal pain 08/07/201511/07 Nausea 08/07/2015 11/07/2016 Type 2 diabetes mellitus without complication 11/20/2016 Rheumatoid arthritis involving both hands 201411/07/2016 Abdominal discomfort 07/31/2015 11/07/2016 DM type 2 (diabetes mellitus, type 2) 07/28/2014 11/20/2016 SBO (small bowel obstruction) 11/04/2012 Sleep apnea 10/01/2010 07/31/2015 Obstructive sleep apnea 07/24/2010 11/07/19 17 Overview: Using c pap since 12.18.2003 Actual dx made prior to this. Had a machine when she came to [facility]. NEURALGIA INGUINAL 04/01/2007 11/07/2016 RECTAL BLEEDING (MELENA-578.1) 02/23/2007 0 11/07/2016 PAIN ABDOMEN( Periumbilical) 01/28/200702/2015 OVERWEIGHT 08/05/2006 01/25/2015 Type II or unspecified type diabetes mellitus without mention of complication, not stated as uncontrolled HYPERLIPIDEMIA NEC/NOS 5 Esophageal reflux 07/16/2017 Malignant neoplasm of colon, unspecified site 11/07/2016 Overview: colo-rectal cancer - colonoscopy - 13 March 2007 documented as of this encounter (statuses as of 12/17/2022) [facility] History of Past illness Narrative* Problem Noted Date Resolved Date Dyspnea on exertion 03/19/2021 05/09/2022 Congestive heart failure 12/11/2020 021 Abnormality of gait 07/13/2020 12/10/2022 Fracture, Colles, left, open 04/20/2020 Partial small bowel obstruction 03/12/2020 06/26/2020 Abnormal mammogram 12/09/2016 08/18/2019 Generalized abdominal pain 08/07/201511/07 Nausea 08/07/2015 11/07/2016 Type 2 diabetes mellitus without complication 11/20/2016 Rheumatoid arthritis involving both hands 201411/07/2016 Abdominal discomfort 07/31/2015 11/07/2016 DM type 2 (diabetes mellitus, type 2) 07/28/2014 11/20/2016 SBO (small bowel obstruction) 11/04/2012 Sleep apnea 10/01/2010 07/31/2015 Obstructive sleep apnea 07/24/2010 11/07/19 17 Overview: Using c pap since 12.18.2003 Actual dx made prior to this. Had a machine when she came to [facility]. NEURALGIA INGUINAL 04/01/2007 11/07/2016 RECTAL BLEEDING (MELENA-578.1) 02/23/2007 0 11/07/2016 PAIN ABDOMEN( Periumbilical) 01/28/200702/2015 OVERWEIGHT 08/05/2006 01/25/2015 Type II or unspecified type diabetes mellitus without mention of complication, not stated as uncontrolled HYPERLIPIDEMIA NEC/NOS 5 Esophageal reflux 07/16/2017 Malignant neoplasm of colon, unspecified site 11/07/2016 Overview: colo-rectal cancer - colonoscopy - 13 March 2007 documented as of this encounter (statuses as of 12/19/2022) [facility] History of Past illness Narrative* Problem Noted Date Resolved Date Dyspnea on exertion 03/19/2021 05/09/2022 Congestive heart failure 12/11/2020 021 Abnormality of gait 07/13/2020 12/10/2022 Fracture, Colles, left, open 04/20/2020 Partial small bowel obstruction 03/12/2020 06/26/2020 Abnormal mammogram 12/09/2016 08/18/2019 Generalized abdominal pain 08/07/201511/07 Nausea 08/07/2015 11/07/2016 Type 2 diabetes mellitus without complication 11/20/2016 Rheumatoid arthritis involving both hands 201411/07/2016 Abdominal discomfort 07/31/2015 11/07/2016 DM type 2 (diabetes mellitus, type 2) 07/28/2014 11/20/2016 SBO (small bowel obstruction) 11/04/2012 Sleep apnea 10/01/2010 07/31/2015 Obstructive sleep apnea 07/24/2010 11/07/19 17 Overview: Using c pap since 12.18.2003 Actual dx made prior to this. Had a machine when she came to [facility]. NEURALGIA INGUINAL 04/01/2007 11/07/2016 RECTAL BLEEDING (MELENA-578.1) 02/23/2007 0 11/07/2016 PAIN ABDOMEN( Periumbilical) 01/28/200702/2015 OVERWEIGHT 08/05/2006 01/25/2015 Type II or unspecified type diabetes mellitus without mention of complication, not stated as uncontrolled HYPERLIPIDEMIA NEC/NOS 5 Esophageal reflux 07/16/2017 Malignant neoplasm of colon, unspecified site 11/07/2016 Overview: colo-rectal cancer - colonoscopy - 13 March 2007 documented as of this encounter (statuses as of 12/28/2022) [facility] History of Past illness Narrative* Problem Noted Date Resolved Date Dyspnea on exertion 03/19/2021 05/09/2022 Congestive heart failure 12/11/2020 021 Abnormality of gait 07/13/2020 12/10/2022 Fracture, Colles, left, open 04/20/2020 Partial small bowel obstruction 03/12/2020 06/26/2020 Abnormal mammogram 12/09/2016 08/18/2019 Generalized abdominal pain 08/07/201511/07 Nausea 08/07/2015 11/07/2016 Type 2 diabetes mellitus without complication 11/20/2016 Rheumatoid arthritis involving both hands 201411/07/2016 Abdominal discomfort 07/31/2015 11/07/2016 DM type 2 (diabetes mellitus, type 2) 07/28/2014 11/20/2016 SBO (small bowel obstruction) 11/04/2012 Sleep apnea 10/01/2010 07/31/2015 Obstructive sleep apnea 07/24/2010 11/07/19 17 Overview: Using c pap since 12.18.2003 Actual dx made prior to this. Had a machine when she came to [facility]. NEURALGIA INGUINAL 04/01/2007 11/07/2016 RECTAL BLEEDING (MELENA-578.1) 02/23/2007 0 11/07/2016 PAIN ABDOMEN( Periumbilical) 01/28/200702/2015 OVERWEIGHT 08/05/2006 01/25/2015 Type II or unspecified type diabetes mellitus without mention of complication, not stated as uncontrolled HYPERLIPIDEMIA NEC/NOS 5 Esophageal reflux 07/16/2017 Malignant neoplasm of colon, unspecified site 11/07/2016 Overview: colo-rectal cancer - colonoscopy - 13 March 2007 documented as of this encounter (statuses as of 01/21/2023) [facility] of Past illness Narrative* Problem Noted Date Resolved Date Dyspnea on exertion 03/19/2021 05/09/2022 Congestive heart failure 12/11/2020 021 Abnormality of gait 07/13/2020 12/10/2022 Fracture, Colles, left, open 04/20/2020 Partial small bowel obstruction 03/12/2020 06/26/2020 Abnormal mammogram 12/09/2016 08/18/2019 Generalized abdominal pain 08/07/201511/07 Nausea 08/07/2015 11/07/2016 Type 2 diabetes mellitus without complication 11/20/2016 Rheumatoid arthritis involving both hands 201411/07/2016 Abdominal discomfort 07/31/2015 11/07/2016 DM type 2 (diabetes mellitus, type 2) 07/28/2014 11/20/2016 SBO (small bowel obstruction) 11/04/2012 Sleep apnea 10/01/2010 07/31/2015 Obstructive sleep apnea 07/24/2010 11/07/19 17 Overview: Using c pap since 12.18.2003 Actual dx made prior to this. Had a machine when she came to [facility]. NEURALGIA INGUINAL 04/01/2007 11/07/2016 RECTAL BLEEDING (MELENA-578.1) 02/23/2007 0 11/07/2016 PAIN ABDOMEN( Periumbilical) 01/28/200702/2015 OVERWEIGHT 08/05/2006 01/25/2015 Type II or unspecified type diabetes mellitus without mention of complication, not stated as uncontrolled HYPERLIPIDEMIA NEC/NOS 5 Esophageal reflux 07/16/2017 Malignant neoplasm of colon, unspecified site 11/07/2016 Overview: colo-rectal cancer - colonoscopy - 13 March 2007 documented as of this encounter (statuses as of 03/12/2023) [facility] of Past illness Narrative* Problem Noted Date Diagnosed Date Resolved Date Dyspnea on exertion 03/19/2021 05/09/20 22 Congestive heart failure 12/11/2020 Abnormality of gait 07/13/2020 12/11/19 23 Fracture, Colles, left, open 04/20/2020 03/19/2021 Partial small bowel obstruction 03/12/2020 06/26/2020 Abnormal mammogram 12/09/2016 9 Generalized abdominal pain 08/07/2015 0 11/07/2016 Nausea 08/07/2015 11/07/2016 Type 2 diabetes mellitus without complication 07/31/20 15 11/20/2016 Rheumatoid arthritis involving both hands 07/31/2015 11/07/2016 Abdominal discomfort 07/31/2015 017 DM type 2 (diabetes mellitus, type 2) 07/28/2014 11/20/2016 SBO (small bowel obstruction) 11/04/2012 11/07/2016 Sleep apnea 10/01/2010 07/31/2015 Obstructive sleep apnea 07/24/201010/23 Overview: Using c pap since 12.18.2003 Actual dx made prior to this. Had a machine when she came to [facility]. NEURALGIA INGUINAL 04/01/2007 7 RECTAL BLEEDING (MELENA-578.1) 02/23/2007 11/07/2016 PAIN ABDOMEN( Periumbilical) 01/28/2007 01/25/2015 OVERWEIGHT 08/05/2006 01/25/2015 Type II or unspecified type diabetes mellitus without mention of complication, not stated as uncontrolled 07/28/2014 HYPERLIPIDEMIA NEC/NOS 07/31 Esophageal reflux 07/16/2017 Malignant neoplasm of colon, unspecified site 11/07/2016 Overview: colo-rectal cancer - colonoscopy - 13 March 2007 documented as of this encounter (statuses as of 04/16/2023) [facility] of Past illness Narrative* Problem Noted Date Diagnosed Date Resolved Date Dyspnea on exertion 03/19/2021 05/09/20 22 Congestive heart failure 12/11/2020 Abnormality of gait 07/13/2020 12/11/19 23 Fracture, Colles, left, open 04/20/2020 03/19/2021 Partial small bowel obstruction 03/12/2020 06/26/2020 Abnormal mammogram 12/09/2016 9 Generalized abdominal pain 08/07/2015 0 11/07/2016 Nausea 08/07/2015 11/07/2016 Type 2 diabetes mellitus without complication 07/31/20 15 11/20/2016 Rheumatoid arthritis involving both hands 07/31/2015 11/07/2016 Abdominal discomfort 07/31/2015 017 DM type 2 (diabetes mellitus, type 2) 07/28/2014 11/20/2016 SBO (small bowel obstruction) 11/04/2012 11/07/2016 Sleep apnea 10/01/2010 07/31/2015 Obstructive sleep apnea 07/24/201010/23 Overview: Using c pap since 12.18.2003 Actual dx made prior to this. Had a machine when she came to [facility]. NEURALGIA INGUINAL 04/01/2007 7 RECTAL BLEEDING (MELENA-578.1) 02/23/2007 11/07/2016 PAIN ABDOMEN( Periumbilical) 01/28/2007 01/25/2015 OVERWEIGHT 08/05/2006 01/25/2015 Type II or unspecified type diabetes mellitus without mention of complication, not stated as uncontrolled 07/28/2014 HYPERLIPIDEMIA NEC/NOS 07/31 Esophageal reflux 07/16/2017 Malignant neoplasm of colon, unspecified site 11/07/2016 Overview: colo-rectal cancer - colonoscopy - 13 March 2007 documented as of this encounter (statuses as of 05/20/2023) [facility] of Past illness Narrative* Problem Noted Date Diagnosed Date Resolved Date Dyspnea on exertion 03/19/2021 05/09/20 22 Congestive heart failure 12/11/2020 Abnormality of gait 07/13/2020 12/11/19 23 Fracture, Colles, left, open 04/20/2020 03/19/2021 Partial small bowel obstruction 03/12/2020 06/26/2020 Abnormal mammogram 12/09/2016 9 Generalized abdominal pain 08/07/2015 0 11/07/2016 Nausea 08/07/2015 11/07/2016 Type 2 diabetes mellitus without complication 07/31/20 15 11/20/2016 Rheumatoid arthritis involving both hands 07/31/2015 11/07/2016 Abdominal discomfort 07/31/2015 02/16/2 017 DM type 2 (diabetes mellitus, type 2) 07/28/2014 11/20/2016 SBO (small bowel obstruction) 11/04/2012 11/07/2016 Sleep apnea 10/01/2010 07/31/2015 Obstructive sleep apnea 07/24/201010/23 Overview: Using c pap since 12.18.2003 Actual dx made prior to this. Had a machine when she came to [facility]. NEURALGIA INGUINAL 04/01/2007 7 RECTAL BLEEDING (MELENA-578.1) 02/23/2007 11/07/2016 PAIN ABDOMEN( Periumbilical) 01/28/2007 01/25/2015 OVERWEIGHT 08/05/2006 01/25/2015 Type II or unspecified type diabetes mellitus without mention of complication, not stated as uncontrolled 07/28/2014 HYPERLIPIDEMIA NEC/NOS 07/31 Esophageal reflux 07/16/2017 Malignant neoplasm of colon, unspecified site 11/07/2016 Overview: colo-rectal cancer - colonoscopy - 13 March 2007 documented as of this encounter (statuses as of 05/22/2023) [facility] of Past illness Narrative* Problem Noted Date Diagnosed Date Resolved Date Dyspnea on exertion 03/19/2021 05/09/20 22 Congestive heart failure 12/11/2020 Abnormality of gait 07/13/2020 12/11/19 23 Fracture, Colles, left, open 04/20/2020 03/19/2021 Partial small bowel obstruction 03/12/2020 06/26/2020 Abnormal mammogram 12/09/2016 9 Generalized abdominal pain 08/07/2015 0 11/07/2016 Nausea 08/07/2015 11/07/2016 Type 2 diabetes mellitus without complication 07/31/20 15 11/20/2016 Rheumatoid arthritis involving both hands 07/31/2015 11/07/2016 Abdominal discomfort 07/31/2015 017 DM type 2 (diabetes mellitus, type 2) 07/28/2014 11/20/2016 SBO (small bowel obstruction) 11/04/2012 11/07/2016 Sleep apnea 10/01/2010 07/31/2015 Obstructive sleep apnea 07/24/201010/23 Overview: Using c pap since 12.18.2003 Actual dx made prior to this. Had a machine when she came to [facility]. NEURALGIA INGUINAL 04/01/2007 7 RECTAL BLEEDING (MELENA-578.1) 02/23/2007 11/07/2016 PAIN ABDOMEN( Periumbilical) 01/28/2007 01/25/2015 OVERWEIGHT 08/05/2006 01/25/2015 Type II or unspecified type diabetes mellitus without mention of complication, not stated as uncontrolled 07/28/2014 HYPERLIPIDEMIA NEC/NOS 07/31 Esophageal reflux 07/16/2017 Malignant neoplasm of colon, unspecified site 11/07/2016 Overview: colo-rectal cancer - colonoscopy - 13 March 2007 documented as of this encounter (statuses as of 06/21/2023) [facility] History of Past illness Narrative* Problem Noted Date Diagnosed Date Resolved Date Dyspnea on exertion 03/19/2021 05/09/20 22 Abnormality of gait 07/13/2020 12/11/19 23 Fracture, Colles, left, open 04/20/2020 03/19/2021 Partial small bowel obstruction 03/12/2020 06/26/2020 Abnormal mammogram 12/09/2016 9 Generalized abdominal pain 08/07/2015 0 11/07/2016 Nausea 08/07/2015 11/07/2016 Type 2 diabetes mellitus without complication 07/31/20 15 11/20/2016 Rheumatoid arthritis involving both hands 07/31/2015 11/07/2016 Abdominal discomfort 07/31/2015 017 DM type 2 (diabetes mellitus, type 2) 07/28/2014 11/20/2016 SBO (small bowel obstruction) 11/04/2012 11/07/2016 Sleep apnea 10/01/2010 07/31/2015 Obstructive sleep apnea 07/24/201010/23 Overview: Using c pap since 12.18.2003 Actual dx made prior to this. Had a machine when she came to [facility]. NEURALGIA INGUINAL 04/01/2007 7 RECTAL BLEEDING (MELENA-578.1) 02/23/2007 11/07/2016 PAIN ABDOMEN( Periumbilical) 01/28/2007 01/25/2015 OVERWEIGHT 08/05/2006 01/25/2015 Type II or unspecified type diabetes mellitus without mention of complication, not stated as uncontrolled 07/28/2014 HYPERLIPIDEMIA NEC/NOS 07/31 Esophageal reflux 07/16/2017 Malignant neoplasm of colon, unspecified site 11/07/2016 Overview: colo-rectal cancer - colonoscopy - 13 March 2007 documented as of this encounter (statuses as of 06/24/2023) [facility] History of Past illness Narrative* Problem Noted Date Diagnosed Date Resolved Date Dyspnea on exertion 03/19/2021 05/09/20 22 Abnormality of gait 07/13/2020 12/11/19 23 Fracture, Colles, left, open 04/20/2020 03/19/2021 Partial small bowel obstruction 03/12/2020 06/26/2020 Abnormal mammogram 12/09/2016 9 Generalized abdominal pain 08/07/2015 0 11/07/2016 Nausea 08/07/2015 11/07/2016 Type 2 diabetes mellitus without complication 07/31/20 15 11/20/2016 Rheumatoid arthritis involving both hands 07/31/2015 11/07/2016 Abdominal discomfort 07/31/2015 017 DM type 2 (diabetes mellitus, type 2) 07/28/2014 11/20/2016 SBO (small bowel obstruction) 11/04/2012 11/07/2016 Sleep apnea 10/01/2010 07/31/2015 Obstructive sleep apnea 07/24/201010/23 Overview: Using c pap since 12.18.2003 Actual dx made prior to this. Had a machine when she came to [facility]. NEURALGIA INGUINAL 04/01/2007 7 RECTAL BLEEDING (MELENA-578.1) 02/23/2007 11/07/2016 PAIN ABDOMEN( Periumbilical) 01/28/2007 01/25/2015 OVERWEIGHT 08/05/2006 01/25/2015 Type II or unspecified type diabetes mellitus without mention of complication, not stated as uncontrolled 07/28/2014 HYPERLIPIDEMIA NEC/NOS 07/31 Esophageal reflux 07/16/2017 Malignant neoplasm of colon, unspecified site 11/07/2016 Overview: colo-rectal cancer - colonoscopy - 13 March 2007 documented as of this encounter (statuses as of 07/15/2023) [facility] History of Past illness Narrative* Problem Noted Date Diagnosed Date Resolved Date Dyspnea on exertion 03/19/2021 05/09/20 22 Abnormality of gait 07/13/2020 12/11/19 23 Fracture, Colles, left, open 04/20/2020 03/19/2021 Partial small bowel obstruction 03/12/2020 06/26/2020 Abnormal mammogram 12/09/2016 9 Generalized abdominal pain 08/07/2015 0 11/07/2016 Nausea 08/07/2015 11/07/2016 Type 2 diabetes mellitus without complication 07/31/20 15 11/20/2016 Rheumatoid arthritis involving both hands 07/31/2015 11/07/2016 Abdominal discomfort 07/31/2015 017 DM type 2 (diabetes mellitus, type 2) 07/28/2014 11/20/2016 SBO (small bowel obstruction) 11/04/2012 11/07/2016 Sleep apnea 10/01/2010 07/31/2015 Obstructive sleep apnea 07/24/201010/23 Overview: Using c pap since 12.18.2003 Actual dx made prior to this. Had a machine when she came to [facility]. NEURALGIA INGUINAL 04/01/2007 7 RECTAL BLEEDING (MELENA-578.1) 02/23/2007 11/07/2016 PAIN ABDOMEN( Periumbilical) 01/28/2007 01/25/2015 OVERWEIGHT 08/05/2006 01/25/2015 Type II or unspecified type diabetes mellitus without mention of complication, not stated as uncontrolled 07/28/2014 HYPERLIPIDEMIA NEC/NOS 07/31 Esophageal reflux 07/16/2017 Malignant neoplasm of colon, unspecified site 11/07/2016 Overview: colo-rectal cancer - colonoscopy - 13 March 2007 documented as of this encounter (statuses as of 07/16/2023) [facility] History of Past illness Narrative* Problem Noted Date Diagnosed Date Resolved Date Dyspnea on exertion 03/19/2021 05/09/20 22 Abnormality of gait 07/13/2020 12/11/19 23 Fracture, Colles, left, open 04/20/2020 03/19/2021 Partial small bowel obstruction 03/12/2020 06/26/2020 Abnormal mammogram 12/09/2016 9 Generalized abdominal pain 08/07/2015 0 11/07/2016 Nausea 08/07/2015 11/07/2016 Type 2 diabetes mellitus without complication 07/31/20 15 11/20/2016 Rheumatoid arthritis involving both hands 07/31/2015 11/07/2016 Abdominal discomfort 07/31/2015 017 DM type 2 (diabetes mellitus, type 2) 07/28/2014 11/20/2016 SBO (small bowel obstruction) 11/04/2012 11/07/2016 Sleep apnea 10/01/2010 07/31/2015 Obstructive sleep apnea 07/24/201010/23 Overview: Using c pap since 12.18.2003 Actual dx made prior to this. Had a machine when she came to [facility]. NEURALGIA INGUINAL 04/01/2007 7 RECTAL BLEEDING (MELENA-578.1) 02/23/2007 11/07/2016 PAIN ABDOMEN( Periumbilical) 01/28/2007 01/25/2015 OVERWEIGHT 08/05/2006 01/25/2015 Type II or unspecified type diabetes mellitus without mention of complication, not stated as uncontrolled 07/28/2014 HYPERLIPIDEMIA NEC/NOS 07/31 Esophageal reflux 07/16/2017 Malignant neoplasm of colon, unspecified site 11/07/2016 Overview: colo-rectal cancer - colonoscopy - 13 March 2007 documented as of this encounter (statuses as of 07/24/2023) [facility] History of Past illness Narrative* Problem Noted Date Resolved Date Congestive heart failure 12/11/2020 021 Fracture, Colles, left, open 04/20/2020 Partial small bowel obstruction 03/12/2020 06/26/2020 Abnormal mammogram 12/09/2016 08/18/2019 Generalized abdominal pain 08/07/201511/07 Nausea 08/07/2015 11/07/2016 Type 2 diabetes mellitus without complication 11/20/2016 Rheumatoid arthritis involving both hands 201411/07/2016 Abdominal discomfort 07/31/2015 11/07/2016 DM type 2 (diabetes mellitus, type 2) 07/28/2014 11/20/2016 SBO (small bowel obstruction) 11/04/2012 Sleep apnea 10/01/2010 07/31/2015 Obstructive sleep apnea 07/24/2010 11/07/19 17 Overview: Using c pap since 12.18.2003 Actual dx made prior to this. Had a machine when she came to [facility]. NEURALGIA INGUINAL 04/01/2007 11/07/2016 RECTAL BLEEDING (MELENA-578.1) 02/23/2007 0 11/07/2016 PAIN ABDOMEN( Periumbilical) 01/28/200702/2015 OVERWEIGHT 08/05/2006 01/25/2015 Type II or unspecified type diabetes mellitus without mention of complication, not stated as uncontrolled HYPERLIPIDEMIA NEC/NOS 5 Esophageal reflux 07/16/2017 Malignant neoplasm of colon, unspecified site 11/07/2016 Overview: colo-rectal cancer - colonoscopy - 13 March 2007 documented as of this encounter (statuses as of 12/14/2021) [facility] History of Past illness Narrative* Problem Noted Date Resolved Date Congestive heart failure 12/11/2020 021 Fracture, Colles, left, open 04/20/2020 Partial small bowel obstruction 03/12/2020 06/26/2020 Abnormal mammogram 12/09/2016 08/18/2019 Generalized abdominal pain 08/07/201511/07 Nausea 08/07/2015 11/07/2016 Type 2 diabetes mellitus without complication 11/20/2016 Rheumatoid arthritis involving both hands 201411/07/2016 Abdominal discomfort 07/31/2015 11/07/2016 DM type 2 (diabetes mellitus, type 2) 07/28/2014 11/20/2016 SBO (small bowel obstruction) 11/04/2012 Sleep apnea 10/01/2010 07/31/2015 Obstructive sleep apnea 07/24/2010 11/07/19 17 Overview: Using c pap since 12.18.2003 Actual dx made prior to this. Had a machine when she came to [facility]. NEURALGIA INGUINAL 04/01/2007 11/07/2016 RECTAL BLEEDING (MELENA-578.1) 02/23/2007 0 11/07/2016 PAIN ABDOMEN( Periumbilical) 01/28/200702/2015 OVERWEIGHT 08/05/2006 01/25/2015 Type II or unspecified type diabetes mellitus without mention of complication, not stated as uncontrolled HYPERLIPIDEMIA NEC/NOS 5 Esophageal reflux 07/16/2017 Malignant neoplasm of colon, unspecified site 11/07/2016 Overview: colo-rectal cancer - colonoscopy - 13 March 2007 documented as of this encounter (statuses as of 12/17/2021) [facility] History of Past illness Narrative* Problem Noted Date Resolved Date Congestive heart failure 12/11/2020 021 Fracture, Colles, left, open 04/20/2020 Partial small bowel obstruction 03/12/2020 06/26/2020 Abnormal mammogram 12/09/2016 08/18/2019 Generalized abdominal pain 08/07/201511/07 Nausea 08/07/2015 11/07/2016 Type 2 diabetes mellitus without complication 11/20/2016 Rheumatoid arthritis involving both hands 201411/07/2016 Abdominal discomfort 07/31/2015 11/07/2016 DM type 2 (diabetes mellitus, type 2) 07/28/2014 11/20/2016 SBO (small bowel obstruction) 11/04/2012 Sleep apnea 10/01/2010 07/31/2015 Obstructive sleep apnea 07/24/2010 11/07/19 17 Overview: Using c pap since 12.18.2003 Actual dx made prior to this. Had a machine when she came to [facility]. NEURALGIA INGUINAL 04/01/2007 11/07/2016 RECTAL BLEEDING (MELENA-578.1) 02/23/2007 0 11/07/2016 PAIN ABDOMEN( Periumbilical) 01/28/200702/2015 OVERWEIGHT 08/05/2006 01/25/2015 Type II or unspecified type diabetes mellitus without mention of complication, not stated as uncontrolled HYPERLIPIDEMIA NEC/NOS 5 Esophageal reflux 07/16/2017 Malignant neoplasm of colon, unspecified site 11/07/2016 Overview: colo-rectal cancer - colonoscopy - 13 March 2007 documented as of this encounter (statuses as of 01/02/2022) [facility] History of Past illness Narrative* Problem Noted Date Resolved Date Congestive heart failure 12/11/2020 021 Fracture, Colles, left, open 04/20/2020 Partial small bowel obstruction 03/12/2020 06/26/2020 Abnormal mammogram 12/09/2016 08/18/2019 Generalized abdominal pain 08/07/201511/07 Nausea 08/07/2015 11/07/2016 Type 2 diabetes mellitus without complication 11/20/2016 Rheumatoid arthritis involving both hands 201411/07/2016 Abdominal discomfort 07/31/2015 11/07/2016 DM type 2 (diabetes mellitus, type 2) 07/28/2014 11/20/2016 SBO (small bowel obstruction) 11/04/2012 Sleep apnea 10/01/2010 07/31/2015 Obstructive sleep apnea 07/24/2010 11/07/19 17 Overview: Using c pap since 12.18.2003 Actual dx made prior to this. Had a machine when she came to [facility]. NEURALGIA INGUINAL 04/01/2007 11/07/2016 RECTAL BLEEDING (MELENA-578.1) 02/23/2007 0 11/07/2016 PAIN ABDOMEN( Periumbilical) 01/28/200702/2015 OVERWEIGHT 08/05/2006 01/25/2015 Type II or unspecified type diabetes mellitus without mention of complication, not stated as uncontrolled HYPERLIPIDEMIA NEC/NOS 5 Esophageal reflux 07/16/2017 Malignant neoplasm of colon, unspecified site 11/07/2016 Overview: colo-rectal cancer - colonoscopy - 13 March 2007 documented as of this encounter (statuses as of 01/09/2022) [facility] History of Past illness Narrative* Problem Noted Date Resolved Date Congestive heart failure 12/11/2020 021 Fracture, Colles, left, open 04/20/2020 Partial small bowel obstruction 03/12/2020 06/26/2020 Abnormal mammogram 12/09/2016 08/18/2019 Generalized abdominal pain 08/07/201511/07 Nausea 08/07/2015 11/07/2016 Type 2 diabetes mellitus without complication 11/20/2016 Rheumatoid arthritis involving both hands 201411/07/2016 Abdominal discomfort 07/31/2015 11/07/2016 DM type 2 (diabetes mellitus, type 2) 07/28/2014 11/20/2016 SBO (small bowel obstruction) 11/04/2012 Sleep apnea 10/01/2010 07/31/2015 Obstructive sleep apnea 07/24/2010 11/07/19 17 Overview: Using c pap since 12.18.2003 Actual dx made prior to this. Had a machine when she came to [facility]. NEURALGIA INGUINAL 04/01/2007 11/07/2016 RECTAL BLEEDING (MELENA-578.1) 02/23/2007 0 11/07/2016 PAIN ABDOMEN( Periumbilical) 01/28/200702/2015 OVERWEIGHT 08/05/2006 01/25/2015 Type II or unspecified type diabetes mellitus without mention of complication, not stated as uncontrolled HYPERLIPIDEMIA NEC/NOS 5 Esophageal reflux 07/16/2017 Malignant neoplasm of colon, unspecified site 11/07/2016 Overview: colo-rectal cancer - colonoscopy - 13 March 2007 documented as of this encounter (statuses as of 01/17/2022) [facility] History of Past illness Narrative* Problem Noted Date Resolved Date Congestive heart failure 12/11/2020 021 Fracture, Colles, left, open 04/20/2020 Partial small bowel obstruction 03/12/2020 06/26/2020 Abnormal mammogram 12/09/2016 08/18/2019 Generalized abdominal pain 08/07/201511/07 Nausea 08/07/2015 11/07/2016 Type 2 diabetes mellitus without complication 11/20/2016 Rheumatoid arthritis involving both hands 201411/07/2016 Abdominal discomfort 07/31/2015 11/07/2016 DM type 2 (diabetes mellitus, type 2) 07/28/2014 11/20/2016 SBO (small bowel obstruction) 11/04/2012 Sleep apnea 10/01/2010 07/31/2015 Obstructive sleep apnea 07/24/2010 11/07/19 17 Overview: Using c pap since 12.18.2003 Actual dx made prior to this. Had a machine when she came to [facility]. NEURALGIA INGUINAL 04/01/2007 11/07/2016 RECTAL BLEEDING (MELENA-578.1) 02/23/2007 0 11/07/2016 PAIN ABDOMEN( Periumbilical) 01/28/200702/2015 OVERWEIGHT 08/05/2006 01/25/2015 Type II or unspecified type diabetes mellitus without mention of complication, not stated as uncontrolled HYPERLIPIDEMIA NEC/NOS 5 Esophageal reflux 07/16/2017 Malignant neoplasm of colon, unspecified site 11/07/2016 Overview: colo-rectal cancer - colonoscopy - 13 March 2007 documented as of this encounter (statuses as of 01/18/2022) [facility] History of Past illness Narrative* Problem Noted Date Resolved Date Congestive heart failure 12/11/2020 021 Fracture, Colles, left, open 04/20/2020 Partial small bowel obstruction 03/12/2020 06/26/2020 Abnormal mammogram 12/09/2016 08/18/2019 Generalized abdominal pain 08/07/201511/07 Nausea 08/07/2015 11/07/2016 Type 2 diabetes mellitus without complication 11/20/2016 Rheumatoid arthritis involving both hands 201411/07/2016 Abdominal discomfort 07/31/2015 11/07/2016 DM type 2 (diabetes mellitus, type 2) 07/28/2014 11/20/2016 SBO (small bowel obstruction) 11/04/2012 Sleep apnea 10/01/2010 07/31/2015 Obstructive sleep apnea 07/24/2010 11/07/19 17 Overview: Using c pap since 12.18.2003 Actual dx made prior to this. Had a machine when she came to [facility]. NEURALGIA INGUINAL 04/01/2007 11/07/2016 RECTAL BLEEDING (MELENA-578.1) 02/23/2007 0 11/07/2016 PAIN ABDOMEN( Periumbilical) 01/28/200702/2015 OVERWEIGHT 08/05/2006 01/25/2015 Type II or unspecified type diabetes mellitus without mention of complication, not stated as uncontrolled HYPERLIPIDEMIA NEC/NOS 5 Esophageal reflux 07/16/2017 Malignant neoplasm of colon, unspecified site 11/07/2016 Overview: colo-rectal cancer - colonoscopy - 13 March 2007 documented as of this encounter (statuses as of 01/21/2022) [facility] History of Past illness Narrative* Problem Noted Date Resolved Date Congestive heart failure 12/11/2020 021 Fracture, Colles, left, open 04/20/2020 Partial small bowel obstruction 03/12/2020 06/26/2020 Abnormal mammogram 12/09/2016 08/18/2019 Generalized abdominal pain 08/07/201511/07 Nausea 08/07/2015 11/07/2016 Type 2 diabetes mellitus without complication 11/20/2016 Rheumatoid arthritis involving both hands 201411/07/2016 Abdominal discomfort 07/31/2015 11/07/2016 DM type 2 (diabetes mellitus, type 2) 07/28/2014 11/20/2016 SBO (small bowel obstruction) 11/04/2012 Sleep apnea 10/01/2010 07/31/2015 Obstructive sleep apnea 07/24/2010 11/07/19 17 Overview: Using c pap since 12.18.2003 Actual dx made prior to this. Had a machine when she came to [facility]. NEURALGIA INGUINAL 04/01/2007 11/07/2016 RECTAL BLEEDING (MELENA-578.1) 02/23/2007 0 11/07/2016 PAIN ABDOMEN( Periumbilical) 01/28/200702/2015 OVERWEIGHT 08/05/2006 01/25/2015 Type II or unspecified type diabetes mellitus without mention of complication, not stated as uncontrolled HYPERLIPIDEMIA NEC/NOS 5 Esophageal reflux 07/16/2017 Malignant neoplasm of colon, unspecified site 11/07/2016 Overview: colo-rectal cancer - colonoscopy - 13 March 2007 documented as of this encounter (statuses as of 01/21/2022) [facility] History of Past illness Narrative* Problem Noted Date Resolved Date Congestive heart failure 12/11/2020 021 Fracture, Colles, left, open 04/20/2020 Partial small bowel obstruction 03/12/2020 06/26/2020 Abnormal mammogram 12/09/2016 08/18/2019 Generalized abdominal pain 08/07/201511/07 Nausea 08/07/2015 11/07/2016 Type 2 diabetes mellitus without complication 11/20/2016 Rheumatoid arthritis involving both hands 201411/07/2016 Abdominal discomfort 07/31/2015 11/07/2016 DM type 2 (diabetes mellitus, type 2) 07/28/2014 11/20/2016 SBO (small bowel obstruction) 11/04/2012 Sleep apnea 10/01/2010 07/31/2015 Obstructive sleep apnea 07/24/2010 11/07/19 17 Overview: Using c pap since 12.18.2003 Actual dx made prior to this. Had a machine when she came to [facility]. NEURALGIA INGUINAL 04/01/2007 11/07/2016 RECTAL BLEEDING (MELENA-578.1) 02/23/2007 0 11/07/2016 PAIN ABDOMEN( Periumbilical) 01/28/200702/2015 OVERWEIGHT 08/05/2006 01/25/2015 Type II or unspecified type diabetes mellitus without mention of complication, not stated as uncontrolled HYPERLIPIDEMIA NEC/NOS 5 Esophageal reflux 07/16/2017 Malignant neoplasm of colon, unspecified site 11/07/2016 Overview: colo-rectal cancer - colonoscopy - 13 March 2007 documented as of this encounter (statuses as of 02/07/2022) [facility] History of Past illness Narrative* Problem Noted Date Resolved Date Congestive heart failure 12/11/2020 021 Fracture, Colles, left, open 04/20/2020 Partial small bowel obstruction 03/12/2020 06/26/2020 Abnormal mammogram 12/09/2016 08/18/2019 Generalized abdominal pain 08/07/201511/07 Nausea 08/07/2015 11/07/2016 Type 2 diabetes mellitus without complication 11/20/2016 Rheumatoid arthritis involving both hands 201411/07/2016 Abdominal discomfort 07/31/2015 11/07/2016 DM type 2 (diabetes mellitus, type 2) 07/28/2014 11/20/2016 SBO (small bowel obstruction) 11/04/2012 Sleep apnea 10/01/2010 07/31/2015 Obstructive sleep apnea 07/24/2010 11/07/19 17 Overview: Using c pap since 12.18.2003 Actual dx made prior to this. Had a machine when she came to [facility]. NEURALGIA INGUINAL 04/01/2007 11/07/2016 RECTAL BLEEDING (MELENA-578.1) 02/23/2007 0 11/07/2016 PAIN ABDOMEN( Periumbilical) 01/28/200702/2015 OVERWEIGHT 08/05/2006 01/25/2015 Type II or unspecified type diabetes mellitus without mention of complication, not stated as uncontrolled HYPERLIPIDEMIA NEC/NOS 5 Esophageal reflux 07/16/2017 Malignant neoplasm of colon, unspecified site 11/07/2016 Overview: colo-rectal cancer - colonoscopy - 13 March 2007 documented as of this encounter (statuses as of 02/21/2022) [facility] History of Past illness Narrative* Problem Noted Date Resolved Date Congestive heart failure 12/11/2020 021 Fracture, Colles, left, open 04/20/2020 Partial small bowel obstruction 03/12/2020 06/26/2020 Abnormal mammogram 12/09/2016 08/18/2019 Generalized abdominal pain 08/07/201511/07 Nausea 08/07/2015 11/07/2016 Type 2 diabetes mellitus without complication 11/20/2016 Rheumatoid arthritis involving both hands 201411/07/2016 Abdominal discomfort 07/31/2015 11/07/2016 DM type 2 (diabetes mellitus, type 2) 07/28/2014 11/20/2016 SBO (small bowel obstruction) 11/04/2012 Sleep apnea 10/01/2010 07/31/2015 Obstructive sleep apnea 07/24/2010 11/07/19 17 Overview: Using c pap since 12.18.2003 Actual dx made prior to this. Had a machine when she came to [facility]. NEURALGIA INGUINAL 04/01/2007 11/07/2016 RECTAL BLEEDING (MELENA-578.1) 02/23/2007 0 11/07/2016 PAIN ABDOMEN( Periumbilical) 01/28/200702/2015 OVERWEIGHT 08/05/2006 01/25/2015 Type II or unspecified type diabetes mellitus without mention of complication, not stated as uncontrolled HYPERLIPIDEMIA NEC/NOS 5 Esophageal reflux 07/16/2017 Malignant neoplasm of colon, unspecified site 11/07/2016 Overview: colo-rectal cancer - colonoscopy - 13 March 2007 documented as of this encounter (statuses as of 02/28/2022) [facility] History of Past illness Narrative* Problem Noted Date Resolved Date Congestive heart failure 12/11/2020 021 Fracture, Colles, left, open 04/20/2020 Partial small bowel obstruction 03/12/2020 06/26/2020 Abnormal mammogram 12/09/2016 08/18/2019 Generalized abdominal pain 08/07/201511/07 Nausea 08/07/2015 11/07/2016 Type 2 diabetes mellitus without complication 11/20/2016 Rheumatoid arthritis involving both hands 201411/07/2016 Abdominal discomfort 07/31/2015 11/07/2016 DM type 2 (diabetes mellitus, type 2) 07/28/2014 11/20/2016 SBO (small bowel obstruction) 11/04/2012 Sleep apnea 10/01/2010 07/31/2015 Obstructive sleep apnea 07/24/2010 11/07/19 17 Overview: Using c pap since 12.18.2003 Actual dx made prior to this. Had a machine when she came to [facility]. NEURALGIA INGUINAL 04/01/2007 11/07/2016 RECTAL BLEEDING (MELENA-578.1) 02/23/2007 0 11/07/2016 PAIN ABDOMEN( Periumbilical) 01/28/200702/2015 OVERWEIGHT 08/05/2006 01/25/2015 Type II or unspecified type diabetes mellitus without mention of complication, not stated as uncontrolled HYPERLIPIDEMIA NEC/NOS 5 Esophageal reflux 07/16/2017 Malignant neoplasm of colon, unspecified site 11/07/2016 Overview: colo-rectal cancer - colonoscopy - 13 March 2007 documented as of this encounter (statuses as of 03/08/2022) [facility] History of Past illness Narrative* Problem Noted Date Resolved Date Congestive heart failure 12/11/2020 021 Fracture, Colles, left, open 04/20/2020 Partial small bowel obstruction 03/12/2020 06/26/2020 Abnormal mammogram 12/09/2016 08/18/2019 Generalized abdominal pain 08/07/201511/07 Nausea 08/07/2015 11/07/2016 Type 2 diabetes mellitus without complication 11/20/2016 Rheumatoid arthritis involving both hands 201411/07/2016 Abdominal discomfort 07/31/2015 11/07/2016 DM type 2 (diabetes mellitus, type 2) 07/28/2014 11/20/2016 SBO (small bowel obstruction) 11/04/2012 Sleep apnea 10/01/2010 07/31/2015 Obstructive sleep apnea 07/24/2010 11/07/19 17 Overview: Using c pap since 12.18.2003 Actual dx made prior to this. Had a machine when she came to [facility]. NEURALGIA INGUINAL 04/01/2007 11/07/2016 RECTAL BLEEDING (MELENA-578.1) 02/23/2007 0 11/07/2016 PAIN ABDOMEN( Periumbilical) 01/28/200702/2015 OVERWEIGHT 08/05/2006 01/25/2015 Type II or unspecified type diabetes mellitus without mention of complication, not stated as uncontrolled HYPERLIPIDEMIA NEC/NOS 5 Esophageal reflux 07/16/2017 Malignant neoplasm of colon, unspecified site 11/07/2016 Overview: colo-rectal cancer - colonoscopy - 13 March 2007 documented as of this encounter (statuses as of 03/12/2022) [facility] History of Past illness Narrative* Problem Noted Date Resolved Date Congestive heart failure 12/11/2020 021 Fracture, Colles, left, open 04/20/2020 Partial small bowel obstruction 03/12/2020 06/26/2020 Abnormal mammogram 12/09/2016 08/18/2019 Generalized abdominal pain 08/07/201511/07 Nausea 08/07/2015 11/07/2016 Type 2 diabetes mellitus without complication 11/20/2016 Rheumatoid arthritis involving both hands 201411/07/2016 Abdominal discomfort 07/31/2015 11/07/2016 DM type 2 (diabetes mellitus, type 2) 07/28/2014 11/20/2016 SBO (small bowel obstruction) 11/04/2012 Sleep apnea 10/01/2010 07/31/2015 Obstructive sleep apnea 07/24/2010 11/07/19 17 Overview: Using c pap since 12.18.2003 Actual dx made prior to this. Had a machine when she came to [facility]. NEURALGIA INGUINAL 04/01/2007 11/07/2016 RECTAL BLEEDING (MELENA-578.1) 02/23/2007 0 11/07/2016 PAIN ABDOMEN( Periumbilical) 01/28/200702/2015 OVERWEIGHT 08/05/2006 01/25/2015 Type II or unspecified type diabetes mellitus without mention of complication, not stated as uncontrolled HYPERLIPIDEMIA NEC/NOS 5 Esophageal reflux 07/16/2017 Malignant neoplasm of colon, unspecified site 11/07/2016 Overview: colo-rectal cancer - colonoscopy - 13 March 2007 documented as of this encounter (statuses as of 03/18/2022) [facility]21 History of Past illness Narrative* Problem Noted Date Resolved Date Congestive heart failure 12/11/2020 021 Fracture, Colles, left, open 04/20/2020 Partial small bowel obstruction 03/12/2020 06/26/2020 Abnormal mammogram 12/09/2016 08/18/2019 Generalized abdominal pain 08/07/201511/07 Nausea 08/07/2015 11/07/2016 Type 2 diabetes mellitus without complication 11/20/2016 Rheumatoid arthritis involving both hands 201411/07/2016 Abdominal discomfort 07/31/2015 11/07/2016 DM type 2 (diabetes mellitus, type 2) 07/28/2014 11/20/2016 SBO (small bowel obstruction) 11/04/2012 Sleep apnea 10/01/2010 07/31/2015 Obstructive sleep apnea 07/24/2010 11/07/19 17 Overview: Using c pap since 12.18.2003 Actual dx made prior to this. Had a machine when she came to [facility]. NEURALGIA INGUINAL 04/01/2007 11/07/2016 RECTAL BLEEDING (MELENA-578.1) 02/23/2007 0 11/07/2016 PAIN ABDOMEN( Periumbilical) 01/28/200702/2015 OVERWEIGHT 08/05/2006 01/25/2015 Type II or unspecified type diabetes mellitus without mention of complication, not stated as uncontrolled HYPERLIPIDEMIA NEC/NOS 5 Esophageal reflux 07/16/2017 Malignant neoplasm of colon, unspecified site 11/07/2016 Overview: colo-rectal cancer - colonoscopy - 13 March 2007 documented as of this encounter (statuses as of 04/03/2022) [facility] History of Past illness Narrative* Problem Noted Date Resolved Date Congestive heart failure 12/11/2020 021 Fracture, Colles, left, open 04/20/2020 Partial small bowel obstruction 03/12/2020 06/26/2020 Abnormal mammogram 12/09/2016 08/18/2019 Generalized abdominal pain 08/07/201511/07 Nausea 08/07/2015 11/07/2016 Type 2 diabetes mellitus without complication 11/20/2016 Rheumatoid arthritis involving both hands 201411/07/2016 Abdominal discomfort 07/31/2015 11/07/2016 DM type 2 (diabetes mellitus, type 2) 07/28/2014 11/20/2016 SBO (small bowel obstruction) 11/04/2012 Sleep apnea 10/01/2010 07/31/2015 Obstructive sleep apnea 07/24/2010 11/07/19 17 Overview: Using c pap since 12.18.2003 Actual dx made prior to this. Had a machine when she came to [facility]. NEURALGIA INGUINAL 04/01/2007 11/07/2016 RECTAL BLEEDING (MELENA-578.1) 02/23/2007 0 11/07/2016 PAIN ABDOMEN( Periumbilical) 01/28/200702/2015 OVERWEIGHT 08/05/2006 01/25/2015 Type II or unspecified type diabetes mellitus without mention of complication, not stated as uncontrolled HYPERLIPIDEMIA NEC/NOS 5 Esophageal reflux 07/16/2017 Malignant neoplasm of colon, unspecified site 11/07/2016 Overview: colo-rectal cancer - colonoscopy - 13 March 2007 documented as of this encounter (statuses as of 04/19/2022) [facility] History of Past illness Narrative* Problem Noted Date Resolved Date Congestive heart failure 12/11/2020 021 Fracture, Colles, left, open 04/20/2020 Partial small bowel obstruction 03/12/2020 06/26/2020 Abnormal mammogram 12/09/2016 08/18/2019 Generalized abdominal pain 08/07/201511/07 Nausea 08/07/2015 11/07/2016 Type 2 diabetes mellitus without complication 11/20/2016 Rheumatoid arthritis involving both hands 201411/07/2016 Abdominal discomfort 07/31/2015 11/07/2016 DM type 2 (diabetes mellitus, type 2) 07/28/2014 11/20/2016 SBO (small bowel obstruction) 11/04/2012 Sleep apnea 10/01/2010 07/31/2015 Obstructive sleep apnea 07/24/2010 11/07/19 17 Overview: Using c pap since 12.18.2003 Actual dx made prior to this. Had a machine when she came to [facility]. NEURALGIA INGUINAL 04/01/2007 11/07/2016 RECTAL BLEEDING (MELENA-578.1) 02/23/2007 0 11/07/2016 PAIN ABDOMEN( Periumbilical) 01/28/200702/2015 OVERWEIGHT 08/05/2006 01/25/2015 Type II or unspecified type diabetes mellitus without mention of complication, not stated as uncontrolled HYPERLIPIDEMIA NEC/NOS 5 Esophageal reflux 07/16/2017 Malignant neoplasm of colon, unspecified site 11/07/2016 Overview: colo-rectal cancer - colonoscopy - 13 March 2007 documented as of this encounter (statuses as of 05/07/2022) [facility] [place] [facility] Diagnosis Congestive heart failure, unspecified HF chronicity, unspecified heart failure type (HCC) documented [facility] [place] [facility]* Diagnosis Intermittent small bowel obstruction due to adhesions (HCC)- Primary [facility] [place] [facility]* Diagnosis Hyperlipidemia, unspecified hyperlipidemia type Anxiety state Anxiety state, unspecified Depressive disorder Depressive disorder, not elsewhere classified [facility] this [facility] [place] [facility]* Diagnosis Congestive heart failure, unspecified HF chronicity, unspecified heart failure type (HCC) documented [facility] [place] [facility]* Diagnosis Medicare annual wellness visit, subsequent- Primary Routine general medical examination at a health care facility Primary hypertension Unspecified essential hypertension Edema of both legs Edema Anxiety state Anxiety state, unspecified Depressive disorder Depressive disorder, not elsewhere classified REY on CPAP Obstructive sleep apnea (adult) (pediatric) Hyperlipidemia, unspecified hyperlipidemia type Stage 3a chronic kidney disease (HCC) Hypertensive kidney disease with stage 3a chronic kidney disease (HCC) Acute pain of left knee [facility] [place] [facility] Diagnosis Primary hypertension- Primary Unspecified essential hypertension Shortness of breath Fatigue, unspecified type [facility] [place] [facility] Diagnosis Primary hypertension Unspecified essential hypertension Edema of both legs Edema [facility] [place] [facility]* Diagnosis Congestive heart failure, unspecified HF chronicity, unspecified heart failure type (HCC) [facility] [place] [facility]* Diagnosis Primary hypertension- Primary Unspecified essential hypertension Congestive heart failure, unspecified HF chronicity, unspecified heart failure type (HCC) REY on CPAP Obstructive sleep apnea (adult) (pediatric) Hyperlipidemia, unspecified hyperlipidemia type Rheumatoid arthritis 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) Anxiety state Anxiety state, unspecified Depressive disorder Depressive disorder, not elsewhere classified Encounter for immunization Need for other specified prophylactic vaccination against single bacterial disease documented in this encounter [facility] for referral (narrative)* Diagnostic Procedure Only (Routine) - Closed Specialty Diagnoses / Procedures Referred By Wilfredo abdul Referred To Contact XR IMAGING Diagnoses Acute pain of left knee Procedures XR KNEE GENERAL 4V AP BOTH/PA BOTH/LAT/MERC LEFT RADIOLOGIC EXAM KNEE COMPLETE 4/[place] [address] [place] [id number] Xr Imaging Referral ID Status Reason Start Date Expiration Date V isits Requested Visits Authorized [id number] Closed Auto-Generate d Referral 12/10/2022 01/09/2024 1 1 [facility] for referral (narrative)* Outpatient Procedure (Routine) - Closed Specialty Diagnoses / Procedures Referred By Wilfredo abdul Ref[facility] Diagnoses Shortness of breath Fatigue, unspecified type Procedures ECG COMPLETE ECG ROUTINE ECG W/LEAST 12 LDS W/I&R Sherin Contreras APRN.EMISSIONS ENGINEER [address] [place] [address] [facility] [place] [address] Referral ID Status Reason Start Date Expiration Date V isits Requested Visits Authorized [id number] Closed Auto-Generate d Referral 01/21/2023 01/21/2024 1 1 [facility] Summary Purpose Family History No Family History Records FoundNo Family History Records FoundNo Family History Records Found Advance Directives No Advanced Directives Records FoundDocuments on File Type Date Recorded 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 Advance Directives and Living Will 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 Latest Code Status on File Code Status Date Activated Date Inactivated Comments Full Code 12/24/2019 12:08 PM Latest Code Status on File Code Status Date Activated Date Inactivated Comments Full Code 12/24/2019 12:08 PM 12/25/2019 4:06 PM Latest Code Status on File Code Status Date Activated Date Inactivated Comments Full Code 04/21/2020 8:25 AM Full Code 12/24/2019 12:08 PM 12/25/2019 4:06 PM Documents on File Type Date Recorded 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 ACP-Advance Directive ACP-Advance Directive 04/21/2020 1:44 PM 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 VISIT STATUS: Admission CODE STATUS: Full Code DISCHARGE DIAGNOSES: Active Problems: Fracture, Colles, left, open Resolved Problems: * No resolved hospital problems. * L colles Fx RA HTN Grade 1 open left distal radius fracture Left carpal tunnel syndrome HOSPITAL COURSE: Brittany is a 74 y.o. female with past medical history below who presents with CC of L wrist pain s/p mechanical fall. Reports tripping and falling on outstretched arm, landing on her left wrist which results in Colle Fx. Patient transferred from [facility] for orthopedic evaluation. Patient underwent Open reduction internal fixation intra-articular distal left distal radius fracture on 12/23. VSS and labs reviewed, ok to DC per ortho home on Vit C and PO clindamycin. Advised to f/u with PCP post DC. OARRS reviewed. CONSULTANTS: Ortho RECOMMENDED NEXT STEPS: F/u w PCP Physical Exam: General appearance: alert, cooperative and no distress Mental Status: oriented to person, place and time and normal affect Lungs: clear to auscultation bilaterally, normal effort Heart: regular rate and rhythm, no murmur Abdomen: soft, nontender, nondistended, bowel sounds present, no masses Extremities: no edema, redness, tenderness in the calves. Dressing C/D/I Unable to assess motor/sensory as nerve block is still in effect. Palpable radial pulse Skin: no gross lesions, rashes DISCHARGE MEDICATIONS: Brittany Portillo Home Medication Instructions KALEY:[id number] Printed on:12/25/19928 Medication Information ascorbic acid (V-R VITAMIN C) 250 MG tablet Take 2 tablets by mouth daily aspirin 81 MG tablet Take 81 mg by mouth daily atorvastatin (LIPITOR) 10 MG tablet Take 10 mg by mouth daily calcium citrate-vitamin D (CITRICAL + D) 315-250 MG-UNIT TABS per tablet Take 1 tablet by mouth daily (with breakfast) clindamycin (CLEOCIN) 300 MG capsule Take 1 capsule by mouth 2 times daily for 1 day FLUoxetine (PROZAC) 10 MG capsule Take 10 mg by mouth daily hydroxychloroquine (PLAQUENIL) 200 MG tablet Take 200 mg by mouth 2 times daily lisinopril (PRINIVIL;ZESTRIL) 20 MG tablet Take 20 mg by mouth daily methotrexate (RHEUMATREX) 2.5 MG chemo tablet Take 15 mg by mouth once a week DIET: DIET GENERAL; ACTIVITY: No heavy lifting. COMPLEXITY OF FOLLOW UP: [] Moderate Complexity: follow up within 7-14 calendar days (31239) [] Severe Complexity: follow up within 7 calendar days (54795) FOLLOW UP TESTING, PENDING RESULTS OR REFERRALS AT TRANSITIONAL CARE VISIT: [] Yes [] No PENDING STUDIES: No DISPOSITION: Home FACILITY/HOME CARE AGENCY NAME: Follow up with [facility] [address] [facility] [address] [facility] [address] Schedule an appointment as soon as possible for a visit on 12/29/2019 Post-op follow-up PCP Call on INSTRUCTIONS TO MA/SW: Please call patient on day after discharge (must document patient contacted within 2 business days of discharge). FOLLOW UP QUESTIONS FOR MA/SW: 1. Did you get medications filled and taking them as instructed from discharge? 2. Are you following your discharge instructions from your hospital stay? 3. Please confirm patient is scheduled for a follow up appointment within the above time frame. DISCHARGE TIME: > 30 minutes SIGNED: Devaughn Mckee MD 12/25/2019, 9:29 AM documented in this encounter Discharge Instructions * Instructions* Lc Coleman MD - 12/24/2019 General Orthopedic Discharge Instructions The following instructions have been prepared to help you when you leave the hospital. These guidelines are for the post-surgery period. Activity: Ease into normal activity as tolerated. Medications: see medication instructions. Please be sure to read and understand the information provided by your pharmacy. Ask your Pharmacist if any questions. Wound Care and Hygiene: -Keep your dressing clean, dry, and intact until follow-up Call Your Doctor for: -Excessive bleeding/swelling of incision -Fever with temperature above 100 F Anesthesia Precautions: -Do Not operate any vehicle (automobile, bicycle, motorcycle) or power tools for 24 hours -Do Not drink alcoholic beverages for 24 hours -As precaution to prevent post-operative nausea and vomiting, start your diet with liquids, then progress to light foods. If tolerated, resume normal diet. Additional Instructions: Do not put weight through your left arm Continue PT Pain control per primary Contact your surgeon's office (Lili[facility] Hoang in [place]), to set up an appointment in 1 week, or if you have any problems or questions. Open Reduction With Internal Fixation of a Limb: What to Expect at Home Your Recovery You can expect some pain and swelling around the cut (incision) the doctor made. This should get better within a few days after your surgery. But it is normal to have some pain for 2 to 3 weeks aftersurgery and mild pain for up to 6 weeks after surgery. How soon you can return to work and your normal routine depends on your job and how long it takes the bone to heal. For example, if you have a fractured leg and you sit at work, you may be able to goback in 1 to 2 weeks. But if your job requires you to walk or stand a lot, you will need to wait until your fracture has healed before you go back to work. This care sheet gives you a general idea about how long it will take for you to recover. But each person recovers at a different pace. Follow the steps below to get better as quickly as possible. How can you care for yourself at home? Activity Rest when you feel tired. Getting enough sleep will help you recover. Increase your activity as recommended by your doctor. Being active boosts blood flow and helps prevent pneumonia and constipation. It is usually okay to exercise other parts of your body as soon as you feel well enough. Avoid putting weight on your repaired bone until your doctor says it is okay. You will probably need to take 1 to 2 weeks off from work. It depends on the type of work you do and how you feel. Do not shower for 1 or 2 days after surgery. When you shower, keep your dressing and incisions dry.If you have a cast, tape a sheet of plastic to cover it so that it does not get wet. It may help tosit on a shower stool. Do not take a bath, swim, use a hot tub, or soak your affected limb until your incision is healed. This usually takes 1 to 2 weeks. Diet You can eat your normal diet. If your stomach is upset, try bland, low-fat foods like plain rice, broiled chicken, toast, and yogurt. Medicines Your doctor will tell you if and when you can restart your medicines. He or she will also give you instructions about taking any new medicines. If you take aspirin or some other blood thinner, ask your doctor if and when to start taking it again. Make sure that you understand exactly what your doctor wants you to do. Take pain medicines exactly as directed. ? If the doctor gave you a prescription medicine for pain, take it as prescribed. ? If you are not taking a prescription pain medicine, ask your doctor if you can take an [id number]-[id number] medicine. If you think your pain medicine is making you sick to your stomach: ? Take your medicine after meals (unless your doctor has told you not to). ? Ask your doctor for a different pain medicine. If your doctor prescribed antibiotics, take them as directed. Do not stop taking them just because you feel better. You need to take the full course of antibiotics. Incision care If you have strips of tape on the incision, leave the tape on for a week or until it falls off. If you do not have a cast, clean the incision 2 times a day after your doctor allows you to remove the bandage. Use only soap and water to clean the incision unless your doctor gives you different instructions. Don't use hydrogen peroxide or alcohol, which can slow healing. Exercise Do exercises as instructed by your doctor or physical therapist. These exercises will help keep your muscles strong and your joints flexible while your bone is healing. Wiggle your fingers or toes on the injured arm or leg often. This helps reduce swelling and stiffness. Ice and elevation Prop up the injured arm or leg on a pillow when you ice it or anytime you sit or lie down during the first 1 to 2 weeks after your surgery. Try to keep it above the level of your heart. This will help reduce swelling and pain. Other instructions If you have a cast or splint: ? Keep it dry. ? If you have a removable splint, ask your doctor if it is okay to take it off to bathe. Your doctor may want you to keep it on as much as possible. Be careful not to put the splint on too tight. ? Do not stick objects such as pencils or coat hangers in your cast or splint to scratch your skin. ? Do not put powder into your cast or splint to relieve itchy skin. ? Never cut or alter your cast or splint. Follow-up care is a long part of your treatment and safety. Be sure to make and go to all appointments, and call your doctor if you are having problems. It's also a good idea to know your test resultsand keep a list of the medicines you take. When should you call for help? Call 911 anytime you think you may need emergency care. For example, call if: You passed out (lost consciousness). You have severe trouble breathing. You have sudden chest pain and shortness of breath, or you cough up blood. Call your doctor now or seek immediate medical care if: You have pain that does not get better after you take pain medicine. Your fingers or toes on the injured arm or leg are cool, pale, or change color. You have tingling or numbness in your fingers or toes. You cannot move your fingers or toes. Your cast or splint feels too tight. The skin under your cast or splint is burning or stinging. You have signs of infection, such as: ? Increased pain, swelling, warmth, or redness. ? Red streaks leading from the incision. ? Pus draining from the incision. ? A fever. You have drainage or a bad smell coming from the cast or splint. You have signs of a blood clot, such as: ? Pain in your calf, back of the knee, thigh, or groin. ? Redness and swelling in your leg or groin. You have new or worse nausea or vomiting. You are too sick to your stomach to drink any fluids. You cannot keep down fluids. Watch closely for any changes in your health, and be sure to contact your doctor if: You have any problems with your cast or splint. Where can you learn more? Go to [email or web address] and sign in to your [employer] account. Enter S594 in the Search Health Information box to learn more about Open Reduction With Internal Fixation of a Limb: What to Expect at Home. If you do not have an account, please click on the Sign Up Now link. Current as of: March 17, 2019Content Version: 12.4 2537-3431 [employer]. Care instructions adapted under license by [employer]. If you have questions about a medical condition or this instruction, always ask your healthcare professional. [employer] disclaims any warranty or liability for your use of this information. documented in this encounter* Instructions* Trisha Baez RN - 04/14/2020 PLEASE BE AWARE THAT VISITORS UNDER THE AGE OF 12 AND FOOD/DRINKS ARE NO LONGER PERMITTED IN THE SAME DAY SURGERY DEPARTMENT. IF YOU USE A CPAP MACHINE OR RESCUE INHALER AT HOME PLEASE BRING THESE ITEMS WITH YOU THE DAY OF SURGERY. MEDICATION INSTRUCTIONS PRIOR TO SURGERY PLEASE BRING PROVIDED LIST BACK WITH YOU THE DAY OF SURGERY WITH DATE/TIME LAST DOSE OF MEDICATIONSTAKEN. HOLD LISINOPRIL AM OF SURGERY HOLD ASA 5 DAYS PRIOR TO SURGERY. LAST DOSE IS 04/15. ALL MEDICATION MAY BE TAKEN AFTER SURGERY. During pre-admission testing appointment, patient instructed on the following To arrive 2 hours prior to scheduled surgery Upon arrival, stop in registration just past the main entrance and provide them with a photo id malcom medical card if they have one After registration, come to the same day surgery department, stopping at the main desk They need to have made arrangements for a ride home following surgery and a phone number will need to be provided before going back to the operating room. If public transportation will be used after surgery, they are made aware that a responsible adult needs to accompany them. They need to make arrangements to have someone with them when they get home from surgery. Leave all jewelry, contacts and valuables at home Wear loose comfortable clothing to go home in Bring in the medication list provided for them and write in the date/time last dose was taken No food (including candy, gum and mints) the day of surgery They may have clear liquids ( water, black coffee/no liquid or powder creamer, clear tea, clear fruit juices/no pulp and carbonated beverages) up until 2 hours prior to surgery Do not drink alcohol, use recreational drugs or smoke/use nicotine products 24 hours prior to surgery. Encouraged to write down any questions they may have for the surgeon, anesthesiologist or any member of the surgical team, and to bring list of questions in with them To not shave the surgical site and to follow instructions provided on showering with the CHG solution During the pre-admission testing appointment, this nurse reviewed and provided patient with The taking care of yourself after surgery paper Billing information for anesthesia patients Preparing for your surgical procedure pamphlet After visit Summary with medication list and medication instructions The CHG solution and shower card with instruction. Pt encouraged to follow instructions on card Prior to end of PAT appointment, pt acknowledged understanding of information and instructions provided in preparation of upcoming surgery. documented in this encounter* Instructions* Liliam Hoang PA - 04/21/2020 Bandage: Keep operative dressing on, clean, and dry for one week. After one week from the date of surgery, you can remove the dressing. It is okay to shower and get the incision wet but do not soak the incision. Please keep a dry dressing or band aid with small amount of antibiotic ointment over the incision until follow up appointment in 2 weeks. Swelling control: Elevate and Ice for pain control Immobilization: Encourage range of motion of index finger, long finger, ring finger, little finger, thumb, and wrist in dressing with goal of touching fingertips to palm by initial post op appointment. Weightbearing: Non weight bearing in operative extremity Nerve block for pain control: If you have any questions regarding your nerve block and/or catheter, please refer to the information packet provided in your post op folder. You can also call (generic nurse) or [phone] and page Acute Pain Service continuity editor for further questions or concerns. Okay to discontinue sling once the nerve block has worn off and motor function as well as sensation has returned to your arm. documented in this encounter* Instructions* Liliam Hoang PA - 07/28/2020 Endoscopic Carpal Tunnel Release: What to Expect at Home Your Recovery Your hand will hurt and may feel weak with varying numbness. This usually goes away in a few days, but it may take several months. You received a local injection in your operative hand with lidocaine and epinephrine today. It is normal for your finger tip(s) to look pale or white for up to 10 hours after surgery but if this persists past the 10 hours please call the office immediately at [phone]. Your stitches will be removed in 1 to 2 weeks. Your hand and wrist may feel worse than they had felt. But the pain should begin to go away. It usually takes 3 to 4 months to recover and up to 1 year before hand strength returns completely. The timing of your return to work depends whether the surgery was on your dominant hand (the hand you use most) and your work activities. If you had surgery on your dominant hand and you do repeated actions at work, you may be able to return to work in 4 to 6 weeks. Repeated motions include typing or assembly-line work. If the surgery was on the other hand and you do not do repeated actions at work, you may be able to return to work in 7 to 14 days. Please discuss this at your initial post operative appointment. This care sheet gives you a general idea of how long it will take for you to recover. But each person recovers at a different pace. Follow the steps below to get better as quickly as possible. How can you care for yourself at home? Activity Rest when you feel tired. Getting enough sleep will help you recover. Try to walk each day. Start by walking a little more than you did the day before. Bit by bit, increase the amount you walk. Until your stitches are removed, you are to remain non-weightbearing in the operative extremity. For up to 2 weeks after surgery, avoid lifting things heavier than 1 to 2 pounds and using your hand. This includes doing repeated arm or hand movements, such as typing or using a computer mouse, washing windows, vacuuming, or chopping food. Do not use power tools, and avoid activities that cause vibration. You may begin heavier tasks about 4 weeks after surgery. These include vacuuming, mowing the lawn, and gardening. You may shower, but do not get your hand wet. Keep the bandage dry by covering it with plastic. Do not take a bath, swim, use a hot tub, or soak your hand until the incision is healed and cleared by the surgeon's office. You may drive when you are fully able to use your hand. Diet You can eat your normal diet. If your stomach is upset, try bland, low-fat foods like plain rice, broiled chicken, toast, and yogurt. Medicines Your can restart your normal medicines immediately after surgery. Instructions will be provided if you are to be taking any new medicines. Take pain medicines exactly as directed. ? If you are not taking a prescription pain medicine, take an [id number]-ssh-mczddkz medicine such as acetaminophen (Tylenol), ibuprofen (Advil, Motrin), or naproxen (Aleve). Read and follow all instructions on the label. ? Do not take two or more pain medicines at the same time unless told to do so. Many pain medicineshave acetaminophen, which is Tylenol. Too much acetaminophen (Tylenol) can be harmful. If you think your pain medicine is making you sick to your stomach: ? Take your medicine after meals. ? Ask for a different pain medicine. If your doctor prescribed antibiotics, take them as directed. Do not stop taking them just because you feel better. You need to take the full course of antibiotics. Incision care Keep your operative bandage on, clean, and dry for one week. After one week from the date of surgery, you can remove only the LARRY wrap and rolled dressing. Please leave the clear bandage underneath intact until follow up appointment in 1-2 weeks. Underneath the clear bandage, you have Steri-Strips/white tape over the incision holding a blue suture in place, please leave intact until your follow-up appointment. It is okay to shower and get the clear bandage wet as it is waterproof but do not soak. Exercise Perform range of motion exercises of index finger, long finger, ring finger, little finger, thumb, and wrist in dressing with goal of touching fingertips to palm by initial post op appointment. Please see instructions below. You may need wrist and hand rehabilitation. This is a series of exercises you do after your surgery. This helps you get back your wrist's and hand's range of motion, strength, and territory sales manager. To get the best results, you need to do the exercises correctly and as often as possible. Ice and elevation Put ice or a cold pack on your wrist for 10 to 20 minutes at a time. Try to do this every 1 to 2 hours for the next 3 days (when you are awake) or until the swelling goes down. Put a thin cloth between the ice and your skin. Prop up the sore wrist on a pillow when you ice it or anytime you sit or lie down during the next 3days. Try to keep it above the level of your heart. This will help reduce swelling. Other instructions Avoid letting your hand hang down. This can cause swelling. Follow-up care is a long part of your treatment and safety. Be sure to make and go to all appointments, and call your doctor if you are having problems. It's also a good idea to know your test resultsand keep a list of the medicines you take. When should you call for help? Call 911 anytime you think you may need emergency care. For example, call if: You passed out (lost consciousness). You have chest pain, are short of breath, or cough up blood. Call your doctor now or seek immediate medical care if: You have pain that does not get better after you take pain medicine. Your hand is cool or pale or changes color. Your cast or splint feels too tight. You have worsening tingling, weakness, or numbness in your hand or fingers. You are sick to your stomach or cannot drink fluids. You have loose stitches, or your incision comes open. You have signs of a blood clot in your leg (called a deep vein thrombosis), such as: ? Pain in your calf, back of the knee, thigh, or groin. ? Redness or swelling in your leg. You have signs of infection, such as: ? Increased pain, swelling, warmth, or redness. ? Red streaks leading from the incision. ? Pus draining from the incision. ? A fever. Bright red blood has soaked through the bandage over your incision. Watch closely for any changes in your health, and be sure to contact your doctor if: You have a problem with your bandage. You do not get better as expected. Carpal Tunnel Syndrome: Exercises Your Care Instructions Here are some examples of typical rehabilitation exercises for your condition. Start each exercise slowly. Ease off the exercise if you start to have pain. Your doctor or your physical or occupational therapist will tell you when you can start these exercises and which ones will work best for you. Warm-up stretches When you no longer have pain or numbness, you can do exercises to help prevent carpal tunnel syndrome from coming back. Do not do any stretch or movement that is uncomfortable or painful. 1. Rotate your wrist up, down, and from side to side. Repeat 4 times. 2. Stretch your fingers far apart. Relax them, and then stretch them again. Repeat 4 times. 3. Stretch your thumb by pulling it back gently, holding it, and then releasing it. Repeat 4 times. How to do the exercises Prayer stretch 1. Start with your palms together in front of your chest just below your chin. 2. Slowly lower your hands toward your waistline, keeping your hands close to your stomach and yourpalms together until you feel a mild to moderate stretch under your forearms. 3. Hold for at least 15 to 30 seconds. Repeat 2 to 4 times. Wrist flexor stretch 1. Extend your arm in front of you with your palm up. 2. Bend your wrist, pointing your hand toward the floor. 3. With your other hand, gently bend your wrist farther until you feel a mild to moderate stretch in your forearm. 4. Hold for at least 15 to 30 seconds. Repeat 2 to 4 times. Wrist extensor stretch 1. Repeat steps 1 through 4 of the stretch above, but begin with your extended hand palm down. Follow-up care is a long part of your treatment and safety. Be sure to make and go to all appointments, and call your doctor if you are having problems. It's also a good idea to know your test resultsand keep a list of the medicines you take. documented in this encounter History of Present Illness * Michael Velazquez MD - 12/25/2019 6:46 AM EDT [facility] TELEMETRY [address] [place], [place] [id number] Dept: [phone] Loc: [phone] Adult Orthopaedic Service Patient Name: Brittany Portillo Date of : 1945 Date: 12/25/19 Assessment: s/p left ORIF distal radius, CTR, I+D on 12/24/2019 Plan: 24 hours PO abx following d/c 500 mg PO vitamin C for 50 days Ok for discharge today Ok for ROM of elbow and digits NWB LUE Scripts on chart Subjective: Pain controlled. No issues overnight. Block still in affect. Medications: sodium chloride flush 10 mL Intravenous 2 times per day lidocaine 20 mL Intradermal Once atorvastatin 10 mg Oral Daily FLUoxetine 10 mg Oral Daily lisinopril 20 mg Oral Daily hydroxychloroquine 200 mg Oral BID Physical Exam: Vitals: 12/25/19 0413 BP: 120/68 Pulse: 94 Resp: 18 Temp: 97.8 F (36.6 C) SpO2: 94% Intake and Output Summary (Last 24 hours) at Date Time Intake/Output Summary (Last 24 hours) at 12/25/2019 0646 Last data filed at 12/25/2019 0413 Gross per 24 hour Intake 1000 ml Output 25 ml Net 975 ml General appearance: No acute distress LUE Dressing C/D/I Unable to assess motor/sensory as nerve block is still in effect. Palpable radial Labs: CBC: Lab Results Component Value Date WBC 10.0 12/24/2019 RBC 4.28 12/24/2019 HGB 13.0 12/24/2019 HCT 38.2 12/24/2019 MCV 89.0 12/24/2019 MCH 30.3 12/24/2019 MCHC 34.0 12/24/2019 RDW 15.3 12/24/2019 PLT 288 12/24/2019 MPV 7.3 12/24/2019 Rads: Radiological Procedure reviewed. Michael Velazquez MD PGY-4 Orthopaedic Surgery 12/25/2019 .6:46 AM * Carley Sheriff RN - 12/24/2019 4:48 PM EDT Report to matthew. * Beckie Ferro OT - 12/24/2019 1:35 PM EDT Occupational Therapy Hold OT orders received, chart reviewed. Plans for surgery with ortho today. Hold OT. Will re-attempt asschedule permits. Beckie Ferro OTR/L documented in this encounter* Tash Shipman RN - 04/21/2020 12:05 PM EDT Discharge instructions reviewed with patient and daughter verbalize understanding and repeat back. Shown how to use sling. Repeat back importance of elevation. Shown phone numbers for Dr Street officeand acute pain service and aware of who to call and when. * Michael Ruiz RN - 04/21/2020 9:42 AM EDT Returned to room. SAO2 monitor on. * Michael Ruiz RN - 04/21/2020 9:38 AM EDT Procedure completed. Tolerated well. * Michael Ruiz RN - 04/21/2020 9:30 AM EDT Time out completed. Procedure started. * Michael Ruiz RN - 04/21/2020 9:26 AM EDT In block room. Monitor on. documented in this encounter* Ginger Cortez RN - 07/28/2020 1:20 PM EST PT AND FAMILY VERBALIZED UNDERSTANDING OF HOMEGOING INSTRUCTIONS, PT VERBALIZED A READINESS TO BE DISCHARGED HOME. PT DISCHARGED HOME VIA WHEELCHAIR ACCOMPANIED BY RN. PT HAS HAD ALL THEIR BELONGINGSRETURNED TO THEM AT DISCHARGE * Ginger Cortez RN - 07/28/2020 1:11 PM EST PATIENT RECEIVED FROM OR VIA CART TO PHASE II . ALERT SPONT RESP. WITH BOILER/CHILLER TECHNICIAN IN ATTENDANCE documented in this encounter Assessments Diagnosis Type I or II open Colles' fracture of left radius, initial encounter Diagnosis S/P ORIF (open reduction internal fixation) fracture S/P hardware removal Trigger index finger of left hand Trigger finger (acquired) S/P trigger finger release Type I or II open Colles' fracture of left radius with routine healing, subsequent encounter Diagnosis Carpal tunnel syndrome of right wrist Carpal tunnel syndrome S/P endoscopic carpal tunnel release Other postprocedural status Additional Source Comments INFORMATION SOURCE (unrecogn ized section and content) DATE CREATED AUTHOR AUTHOR'S ORGANIZ ATION 08/04/[address] [facility] DATE CREATED AUTHOR AUTHOR'S ORGANIZ ATION 09/14/2023 [facility] Source Comments (unrecognize d section and content) In the event this informatio n is protected by the Federal Confidentiality of Alcohol and Drug Abuse Patient Records regulations: The Federal rules restrict any use of the information to criminally investigate or prosecute any alcohol or drug abuse patient.[facility] the event this information is protected by the Federal Confidentiality of Alcohol and Drug Abuse Patient Records regulations: The Federal rules restrict any use of the information to criminally investigate or prosecute any alcohol or drug abuse patient.[facility]In the event this information is protected by the Federal Confidentiality of Alcohol and Drug Abuse Patient Records regulations: The Federal rules restrict any use of the information to criminally investigate or prosecute any alcohol or drug abuse patient.[facility]In the event this information is protected by the Federal Confidentiality of Alcohol and Drug Abuse Patient Records regulations: The Federal rules restrict any use of the information to criminally investigate or prosecute any alcohol or drug abuse patient.[facility]In the event this information is protected by the Federal Confidentiality of Alcohol and Drug Abuse Patient Records regulations: The Federal rules restrict any use of the information to criminally investigate or prosecute any alcohol or drug abuse patient.[facility] HospitalIn the event this information is protected by the Federal Confidentiality of Alcohol and Drug Abuse Patient Records regulations: The Federal rules restrict any use of the information to criminally investigate or prosecute any alcohol or drug abuse patient.[facility] HospitalIn the event this information is protected by the Federal Confidentiality of Alcohol and Drug Abuse Patient Records regulations: The Federal rules restrict any use of the information to criminally investigate or prosecute any alcohol or drug abuse patient.[facility]In the event this information is protected by the Federal Confidentiality of Alcohol and Drug Abuse Patient Records regulations: The Federal rules restrict any use of the information to criminally investigate or prosecute any alcohol or drug abuse patient.[facility]In the event this information is protected by the Federal Confidentiality of Alcohol and Drug Abuse Patient Records regulations: The Federal rules restrict any use of the information to criminally investigate or prosecute any alcohol or drug abuse patient.[facility]In the event this information is protected by the Federal Confidentiality of Alcohol and Drug Abuse Patient Records regulations: The Federal rules restrict any use of the information to criminally investigate or prosecute any alcohol or drug abuse patient.[facility] HospitalIn the event this information is protected by the Federal Confidentiality of Alcohol and Drug Abuse Patient Records regulations: The Federal rules restrict any use of the information to criminally investigate or prosecute any alcohol or drug abuse patient.[facility] HospitalIn the event this information is protected by the Federal Confidentiality of Alcohol and Drug Abuse Patient Records regulations: The Federal rules restrict any use of the information to criminally investigate or prosecute any alcohol or drug abuse patient.[facility] HospitalIn the event this information is protected by the Federal Confidentiality of Alcohol and Drug Abuse Patient Records regulations: The Federal rules restrict any use of the information to criminally investigate or prosecute any alcohol or drug abuse patient.[facility] HospitalIn the event this information is protected by the Federal Confidentiality of Alcohol and Drug Abuse Patient Records regulations: The Federal rules restrict any use of the information to criminally investigate or prosecute any alcohol or drug abuse patient.[facility] HospitalIn the event this information is protected by the Federal Confidentiality of Alcohol and Drug Abuse Patient Records regulations: The Federal rules restrict any use of the information to criminally investigate or prosecute any alcohol or drug abuse patient.[facility] HospitalIn the event this information is protected by the Federal Confidentiality of Alcohol and Drug Abuse Patient Records regulations: The Federal rules restrict any use of the information to criminally investigate or prosecute any alcohol or drug abuse patient.[facility]In the event this information is protected by the Federal Confidentiality of Alcohol and Drug Abuse Patient Records regulations: The Federal rules restrict any use of the information to criminally investigate or prosecute any alcohol or drug abuse patient.[facility] HospitalIn the event this information is protected by the Federal Confidentiality of Alcohol and Drug Abuse Patient Records regulations: The Federal rules restrict any use of the information to criminally investigate or prosecute any alcohol or drug abuse patient.[facility] HospitalIn the event this information is protected by the Federal Confidentiality of Alcohol and Drug Abuse Patient Records regulations: The Federal rules restrict any use of the information to criminally investigate or prosecute any alcohol or drug abuse patient.[facility] HospitalIn the event this information is protected by the Federal Confidentiality of Alcohol and Drug Abuse Patient Records regulations: The Federal rules restrict any use of the information to criminally investigate or prosecute any alcohol or drug abuse patient.[facility] HospitalIn the event this information is protected by the Federal Confidentiality of Alcohol and Drug Abuse Patient Records regulations: The Federal rules restrict any use of the information to criminally investigate or prosecute any alcohol or drug abuse patient.[facility] HospitalIn the event this information is protected by the Federal Confidentiality of Alcohol and Drug Abuse Patient Records regulations: The Federal rules restrict any use of the information to criminally investigate or prosecute any alcohol or drug abuse patient.[facility] HospitalIn the event this information is protected by the Federal Confidentiality of Alcohol and Drug Abuse Patient Records regulations: The Federal rules restrict any use of the information to criminally investigate or prosecute any alcohol or drug abuse patient.[facility] HospitalIn the event this information is protected by the Federal Confidentiality of Alcohol and Drug Abuse Patient Records regulations: The Federal rules restrict any use of the information to criminally investigate or prosecute any alcohol or drug abuse patient.[facility] HospitalIn the event this information is protected by the Federal Confidentiality of Alcohol and Drug Abuse Patient Records regulations: The Federal rules restrict any use of the information to criminally investigate or prosecute any alcohol or drug abuse patient.[facility] HospitalIn the event this information is protected by the Federal Confidentiality of Alcohol and Drug Abuse Patient Records regulations: The Federal rules restrict any use of the information to criminally investigate or prosecute any alcohol or drug abuse patient.[facility] HospitalIn the event this information is protected by the Federal Confidentiality of Alcohol and Drug Abuse Patient Records regulations: The Federal rules restrict any use of the information to criminally investigate or prosecute any alcohol or drug abuse patient.[facility] HospitalIn the event this information is protected by the Federal Confidentiality of Alcohol and Drug Abuse Patient Records regulations: The Federal rules restrict any use of the information to criminally investigate or prosecute any alcohol or drug abuse patient.[facility] HospitalIn the event this information is protected by the Federal Confidentiality of Alcohol and Drug Abuse Patient Records regulations: The Federal rules restrict any use of the information to criminally investigate or prosecute any alcohol or drug abuse patient.[facility] HospitalIn the event this information is protected by the Federal Confidentiality of Alcohol and Drug Abuse Patient Records regulations: The Federal rules restrict any use of the information to criminally investigate or prosecute any alcohol or drug abuse patient.[facility] HospitalIn the event this information is protected by the Federal Confidentiality of Alcohol and Drug Abuse Patient Records regulations: The Federal rules restrict any use of the information to criminally investigate or prosecute any alcohol or drug abuse patient.[facility] HospitalIn the event this information is protected by the Federal Confidentiality of Alcohol and Drug Abuse Patient Records regulations: The Federal rules restrict any use of the information to criminally investigate or prosecute any alcohol or drug abuse patient.[facility] HospitalIn the event this information is protected by the Federal Confidentiality of Alcohol and Drug Abuse Patient Records regulations: The Federal rules restrict any use of the information to criminally investigate or prosecute any alcohol or drug abuse patient.[facility] HospitalIn the event this information is protected by the Federal Confidentiality of Alcohol and Drug Abuse Patient Records regulations: The Federal rules restrict any use of the information to criminally investigate or prosecute any alcohol or drug abuse patient.[facility] HospitalIn the event this information is protected by the Federal Confidentiality of Alcohol and Drug Abuse Patient Records regulations: The Federal rules restrict any use of the information to criminally investigate or prosecute any alcohol or drug abuse patient.[facility] HospitalIn the event this information is protected by the Federal Confidentiality of Alcohol and Drug Abuse Patient Records regulations: The Federal rules restrict any use of the information to criminally investigate or prosecute any alcohol or drug abuse patient.[facility] HospitalIn the event this information is protected by the Federal Confidentiality of Alcohol and Drug Abuse Patient Records regulations: The Federal rules restrict any use of the information to criminally investigate or prosecute any alcohol or drug abuse patient.[facility] HospitalIn the event this information is protected by the Federal Confidentiality of Alcohol and Drug Abuse Patient Records regulations: The Federal rules restrict any use of the information to criminally investigate or prosecute any alcohol or drug abuse patient.[facility] HospitalIn the event this information is protected by the Federal Confidentiality of Alcohol and Drug Abuse Patient Records regulations: The Federal rules restrict any use of the information to criminally investigate or prosecute any alcohol or drug abuse patient.[facility] HospitalIn the event this information is protected by the Federal Confidentiality of Alcohol and Drug Abuse Patient Records regulations: The Federal rules restrict any use of the information to criminally investigate or prosecute any alcohol or drug abuse patient.[facility] HospitalIn the event this information is protected by the Federal Confidentiality of Alcohol and Drug Abuse Patient Records regulations: The Federal rules restrict any use of the information to criminally investigate or prosecute any alcohol or drug abuse patient.[facility] HospitalIn the event this information is protected by the Federal Confidentiality of Alcohol and Drug Abuse Patient Records regulations: The Federal rules restrict any use of the information to criminally investigate or prosecute any alcohol or drug abuse patient.[facility] HospitalIn the event this information is protected by the Federal Confidentiality of Alcohol and Drug Abuse Patient Records regulations: The Federal rules restrict any use of the information to criminally investigate or prosecute any alcohol or drug abuse patient.[facility] HospitalIn the event this information is protected by the Federal Confidentiality of Alcohol and Drug Abuse Patient Records regulations: The Federal rules restrict any use of the information to criminally investigate or prosecute any alcohol or drug abuse patient.[facility] HospitalIn the event this information is protected by the Federal Confidentiality of Alcohol and Drug Abuse Patient Records regulations: The Federal rules restrict any use of the information to criminally investigate or prosecute any alcohol or drug abuse patient.[facility] HospitalIn the event this information is protected by the Federal Confidentiality of Alcohol and Drug Abuse Patient Records regulations: The Federal rules restrict any use of the information to criminally investigate or prosecute any alcohol or drug abuse patient.[facility] Reason for Visit (unrecogniz ed section and content) Reason Onset Date Comments Community Monitoring Outreach 12/17/2021 CH F/ CKD Telephonic CDM Outreach Reason Onset Date Comments Community Monitoring Outreach 01/01/2022 CH F Telephonic CDM Outreach Reason Onset Date Comments Community Monitoring Outreach 01/02/2022 CH F / CKD Telephonic CDM Outreach Reason Onset Date Comments Community Monitoring Outreach 01/07/2022 CH F Telephonic CDM Outreach Reason Onset Date Comments Community Monitoring Outreach 01/17/2022 CH F/CKD Telephonic CDM Outreach Reason Onset Date Comments Community Monitoring Outreach 01/18/2022 CH F/ CKD Telephonic CDM Outreach Reason Onset Date Comments Community Monitoring Outreach 01/21/2022 CH F / CKD Telephonic CDM Outreach Reason Onset Date Comments Refill Request 01/19/2022 Reason Onset Date Comments Community Monitoring Outreach 02/06/2022 CH F/ CKD Telephonic CDM Outreach Reason Onset Date Comments Community Monitoring Outreach 02/20/2022 CH F Telephonic CDM Outreach Reason Onset Date Comments Community Monitoring Outreach 02/27/2022 CH F / CKD Telephonic CDM Outreach Reason Onset Date Comments Community Monitoring Outreach 03/08/2022 CH F/ CKD Telephonic CDM Outreach Reason Onset Date Comments Community Monitoring Outreach 03/11/2022 CH F/ CKD Telephonic CDM Outreach Reason Onset Date Comments Community Monitoring Outreach 03/18/2022 CH F / CKD Telephonic CDM Outreach Reason Onset Date Comments Community Monitoring Outreach 04/03/2022 CH F/ CKD Telephonic CDM Outreach Reason Onset Date Comments Community Monitoring Outreach 04/18/2022 CH F/ CKD Telephonic CDM Outreach Reason Onset Date Comments Community Monitoring Outreach 05/06/2022 Reason Comments Hospital Follow Up [facility] fol low up, small bowel obstruction Reason Onset Date Comments Community Monitoring Outreach 06/10/2022 Reason Onset Date Comments Community Monitoring Outreach 07/04/2022 Reason Onset Date Comments Refill Request 07/24/2022 Reason Onset Date Comments Community Monitoring Outreach 07/25/2022 Reason Onset Date Comments Community Monitoring Outreach 07/26/2022 Reason Comments Refill Request Reason Onset Date Comments Community Monitoring Outreach 08/26/2022 Reason Onset Date Comments Community Monitoring Outreach 09/26/2022 Reason Onset Date Comments Community Monitoring Outreach 10/31/2022 Reason Onset Date Comments Community Monitoring Outreach 11/04/2022 Reason Comments Patient Update Reason Onset Date Comments Refill Request 12/02/2022 Reason Onset Date Comments Community Monitoring Outreach 12/06/2022 Reason Comments Medicare Wellness Exam Reason Onset Date Comments Community Monitoring Outreach 12/12/2022 Reason Onset Date Comments Community Monitoring Outreach 12/17/2022 Reason Onset Date Comments Community Monitoring Outreach 12/25/2022 Reason Comments 6 WEEK FOLLOW UP BP - STARTED NEW MED C/O FATIGUE Reason Onset Date Comments Community Monitoring Outreach 03/12/2023 Reason Onset Date Comments Community Monitoring Outreach 04/16/2023 Reason Onset Date Comments Refill Request 05/20/2023 Reason Onset Date Comments Community Monitoring Outreach 05/19/2023 Reason Onset Date Comments Refill Request 06/18/2023 Reason Comments Follow Up Reason Onset Date Comments Community Monitoring Outreach 07/08/2023 Reason Onset Date Comments Community Monitoring Outreach 07/15/2023 Reason Onset Date Comments Community Monitoring Outreach 07/23/2023 Care Teams (unrecognized sec tion and content) Digitizer Operator Relationship Specialty Start Date End Date Jesus Iyer MD [address] [facility] [place] [address] PCP - General Internal Medicine 11/07/16 Manas Guerra, chemistry technicianElectric Fork Operator Internal Medicine 01/02/21 Digitizer Operator Relationship Specialty Start Date End Date Jesus Iyer MD [address] [facility] [place] [address] PCP - General Internal Medicine 11/07/16 Manas Guerra, chemistry technicianElectric Fork Operator Internal Medicine 01/02/21 Digitizer Operator Relationship Specialty Start Date End Date Jesus Iyer MD [address] [facility] [place] [address] PCP - General Internal Medicine 11/07/16 Manas Guerra, chemistry technicianElectric Fork Operator Internal Medicine 01/02/21 Digitizer Operator Relationship Specialty Start Date End Date Jesus Iyer MD [address] [facility] [place] [address] PCP - General Internal Medicine 11/07/16 Manas Guerra, chemistry technicianElectric Fork Operator Internal Medicine 01/02/21 Digitizer Operator Relationship Specialty Start Date End Date Jesus Iyer MD [address] [facility] [place] [address] PCP - General Internal Medicine 11/07/16 Manas Guerra, chemistry technicianElectric Fork Operator Internal Medicine 01/02/21 Digitizer Operator Relationship Specialty Start Date End Date Jesus Iyer MD [address] [facility] [place] [address] PCP - General Internal Medicine 11/07/16 Manas Guerra, chemistry technicianElectric Fork Operator Internal Medicine 01/02/21 Digitizer Operator Relationship Specialty Start Date End Date Jesus Iyer MD [address] [facility] [place] [address] PCP - General Internal Medicine 11/07/16 Sherif Malagon, chemistry technicianElectric Fork Operator Internal Medicine 01/02/21 Digitizer Operator Relationship Specialty Start Date End Date Jesus Iyer MD [address] [facility] [place] [address] PCP - General Internal Medicine 11/07/16 Sherif Malagon, chemistry technicianElectric Fork Operator Internal Medicine 01/02/21 Digitizer Operator Relationship Specialty Start Date End Date Jesus Iyer MD [address] [facility] [place] [address] PCP - General Internal Medicine 11/07/16 Sherif Malagon, chemistry technicianElectric Fork Operator Internal Medicine 01/02/21 Digitizer Operator Relationship Specialty Start Date End Date Jesus Iyer MD [address] [facility] [place] [address] PCP - General Internal Medicine 11/07/16 Sherif Malagon, chemistry technicianElectric Fork Operator Internal Medicine 01/02/21 Digitizer Operator Relationship Specialty Start Date End Date Jesus Iyer MD [address] [facility] [place] [address] PCP - General Internal Medicine 11/07/16 Sherif Malagon, chemistry technicianElectric Fork Operator Internal Medicine 01/02/21 Digitizer Operator Relationship Specialty Start Date End Date Jesus Iyer MD [address] [facility] [place] [address] PCP - General Internal Medicine 11/07/16 Sherif Malagon, chemistry technicianElectric Fork Operator Internal Medicine 01/02/21 Digitizer Operator Relationship Specialty Start Date End Date Jesus Iyer MD [address] [facility] [place] [address] PCP - General Internal Medicine 11/07/16 Sherif Malagon, chemistry technicianElectric Fork Operator Internal Medicine 01/02/21 Digitizer Operator Relationship Specialty Start Date End Date Jesus Iyer MD [address] [facility] [place] [address] PCP - General Internal Medicine 11/07/16 Sherif Malagon, chemistry technicianElectric Fork Operator Internal Medicine 01/02/21 Digitizer Operator Relationship Specialty Start Date End Date Jesus Iyer MD [address] [facility] [place] [address] PCP - General Internal Medicine 11/07/16 Sherif Malagon, chemistry technicianElectric Fork Operator Internal Medicine 01/02/21 Digitizer Operator Relationship Specialty Start Date End Date Jesus Iyer MD [address] [facility] [place] [address] PCP - General Internal Medicine 11/07/16 Sherif Malagon, chemistry technicianElectric Fork Operator Internal Medicine 01/02/21 Digitizer Operator Relationship Specialty Start Date End Date Jesus Iyer MD [address] [facility] [place] [address] PCP - General Internal Medicine 11/07/16 Sherif Malagon, chemistry technicianElectric Fork Operator Internal Medicine 01/02/21 Digitizer Operator Relationship Specialty Start Date End Date Jesus Iyer MD [address] [facility] [place] [address] PCP - General Internal Medicine 11/07/16 Sherif Malagon, chemistry technicianElectric Fork Operator Internal Medicine 01/02/21 Digitizer Operator Relationship Specialty Start Date End Date Jesus Iyer MD [address] [facility] [place] [address] PCP - General Internal Medicine 11/07/16 Sherif Malgaon RN Electric Fork Operator Internal Medicine 01/02/21 Digitizer Operator Relationship Specialty Start Date End Date Jesus Iyer MD [address] [facility] [place] [address] PCP - General Internal Medicine 11/07/16 Sherif Malagon RN Electric Fork Operator Internal Medicine 01/02/21 Digitizer Operator Relationship Specialty Start Date End Date Jesus Iyer MD [address] [facility] [place] [address] PCP - General Internal Medicine 11/07/16 Sherif Malagon RN Electric Fork Operator Internal Medicine 01/02/21 Digitizer Operator Relationship Specialty Start Date End Date Jesus Iyer MD [address] [facility] [place] [address] PCP - General Internal Medicine 11/07/16 Sherif Malagon chemistry technicianElectric Fork Operator Internal Medicine 01/02/21 Digitizer Operator Relationship Specialty Start Date End Date Jesus Iyer MD [address] [facility] [place] [address] PCP - General Internal Medicine 11/07/16 Sherif Malagon, chemistry technicianElectric Fork Operator Internal Medicine 01/02/21 FOR RECORDS PERTAINING TO PATIENTS WHO ARE OR HAVE BEEN ENROLLED IN A CHEMICAL DEPENDENCY/SUBSTANCEABUSE PROGRAM, SOME INFORMATION MAY BE OMITTED. This clinical summary was aggregated from multiple sources. Caution should be exercised in using it in the provision of clinical care. This summary normalizes information from multiple sources, and as a consequence, information in this document may materially change the coding, format and clinical context of patient data. In addition, data may be omitted in some cases. CLINICAL DECISIONS SHOULD BE BASED ON THE PRIMARY CLINICAL RECORDS. [facility] [employer] [facility]. provides no warranty or guarantee of the accuracy or completeness of information in this document.
[2023-09-25 10:23] LABS: Absolute Lymphocyte Count 1.73 X10^3/uL (0.83-4.51); Basophil# 0.05 X10^3/uL; Basophil% 0.7 % (0-1); Eosinophil# 0.45 X10^3/uL; Eosinophils% 6.6 % (0-5); Hematocrit 36.5 % (37-47); Hemoglobin 11.7 g/dL (12.0-15.0); Lymphocyte # 1.73 X10^3/ul (0.83-4.51); Lymphocyte % 25.6 % (19-41); Mean Corp Hgb Conc 32.1 g/dL (32-36); Mean Corpuscular Hgb 30.1 pg (27.0-32.0); Mean Corpuscular Volume 93.8 fL (81-99); Mean Platelet Vol. 10.6 fl (6.2-12.0); Monocyte# 0.51 X10^3/uL; Monocyte% 7.5 % (0-10); NRBC Flagged by Analyzer 0 % (0-5); Neutrophil # 4.01 X10^3/uL (2.7-7.7); Neutrophil % 59.3 % (47-70); Platelet Count 258 K/mm3 (150-450); RBC Distribution Width CV 14.6 % (11.6-14.6); RBC Distribution Width SD 49.4 fl (35.1-43.9); Red Blood Count 3.89 M/mm3 (4.2-5.4); White Blood Count 6.8 K/mm3 (4.4-11.0)
[2023-09-25 10:58] LABS: ALB/GLOB Ratio 0.9 RATIO (0.9-2.4); AST(SGOT) 32 U/L (15-37); Alanine Aminotransfer ALT/SGPT 26 U/L (13-56); Albumin, Serum 3.3 g/dL (3.2-5.0); Alkaline Phosphatase 89 U/L (45-117); Anion Gap 5 (5-15); BUN 19 mg/dL (7-18); BUN/Creat Ratio 19.5 RATIO (10-20); Calcium,Total 8.8 mg/dL (8.5-10.1); Chloride 108 mmol/L (98-107); Creatinine, Serum 0.97 mg/dL (0.55-1.02); EST Glomerular Filtration Rate 59 mL/min (>60); Est Glom Filt Rate - Afr Amer 71 mL/min (>60); Globulin 3.7 g/dL (2.2-4.2); Glucose 99 mg/dL (74-106); Potassium 4.6 mmol/L (3.5-5.1); Sodium Level 139 mmol/L (136-145)
== END | disposition home or self-care (01) ==
PROVIDERS: PCP Internal Medicine; Referring Provider Internal Medicine Rheumatology; Visit Provider Internal Medicine Rheumatology
DX: M06.00 Rheumatoid arthritis without rheumatoid factor, unspecified site (principal); Z79.899 Other long term (current) drug therapy
CPT/HCPCS: 36415; 80053; 85025

== ENCOUNTER → 2023-12-02 | Outpatient (CLI) | payer MEDICARE, BC, SELFPAY ==
[2023-12-02 10:33] LABS: Absolute Lymphocyte Count 1.79 X10^3/uL (0.83-4.51); Absolute Neutrophil Count 4.5 X10^3/uL (2.0-7.7); Basophil# 0.04 X10^3/uL; Basophil% 0.5 % (0-1); Eosinophil# 0.38 X10^3/uL; Eosinophils% 5.2 % (0-5); Hematocrit 36.9 % (37-47); Hemoglobin 11.9 g/dL (12.0-15.0); Lymphocyte # 1.79 X10^3/ul (0.83-4.51); Lymphocyte % 24.5 % (19-41); Mean Corp Hgb Conc 32.2 g/dL (32-36); Mean Corpuscular Hgb 29.8 pg (27.0-32.0); Mean Corpuscular Volume 92.5 fL (81-99); Mean Platelet Vol. 9.7 fl (6.2-12.0); Monocyte# 0.52 X10^3/uL; Monocyte% 7.1 % (0-10); NRBC Flagged by Analyzer 0 % (0-5); Neutrophil # 4.53 X10^3/uL (2.7-7.7); Neutrophil % 62.2 % (47-70); Platelet Count 295 K/mm3 (150-450); RBC Distribution Width CV 14.6 % (11.6-14.6); RBC Distribution Width SD 48.9 fl (35.1-43.9); Red Blood Count 3.99 M/mm3 (4.2-5.4); White Blood Count 7.3 K/mm3 (4.4-11.0)
[2023-12-02 10:51] LABS: BNP,B-Type NATRIURETIC PEPTIDE 28.4 pg/mL (0-100)
[2023-12-02 10:59] LABS: Vitamin D,25 Hydroxy 31.8 ng/mL
[2023-12-02 11:07] LABS: Anion Gap 2 (5-15); BUN 13 mg/dL (7-18); BUN/Creat Ratio 13.4 RATIO (10-20); Calcium,Total 9.3 mg/dL (8.5-10.1); Chloride 107 mmol/L (98-107); Creatinine, Serum 0.97 mg/dL (0.55-1.02); EST Glomerular Filtration Rate 59 mL/min (>60); Est Glom Filt Rate - Afr Amer 71 mL/min (>60); Glucose 91 mg/dL (74-106); Potassium 4.2 mmol/L (3.5-5.1); Sodium Level 140 mmol/L (136-145); Thyroid Stim Hormone (TSH) 2.61 uIU/mL (0.358-3.74)
== END | disposition home or self-care (01) ==
LOC: LAB 10:04
PROVIDERS: PCP Internal Medicine; Referring Provider Nurse Practitioner Gerontology; Visit Provider Nurse Practitioner Gerontology
DX: R53.83 Other fatigue (principal); R06.00 Dyspnea, unspecified; E55.9 Vitamin D deficiency, unspecified
CPT/HCPCS: 36415; 80048; 82306; 83880; 84443; 85025

== ENCOUNTER → 2023-12-15 | Outpatient (CLI) | payer MEDICARE, BC, SELFPAY ==
[2023-12-15 10:40] LABS: Absolute Lymphocyte Count 1.84 X10^3/uL (0.83-4.51); Absolute Neutrophil Count 3.4 X10^3/uL (2.0-7.7); Basophil# 0.05 X10^3/uL; Basophil% 0.8 % (0-1); Eosinophil# 0.37 X10^3/uL; Eosinophils% 6.1 % (0-5); Hematocrit 41.6 % (37-47); Hemoglobin 13.2 g/dL (12.0-15.0); Lymphocyte # 1.84 X10^3/ul (0.83-4.51); Lymphocyte % 30.6 % (19-41); Mean Corp Hgb Conc 31.7 g/dL (32-36); Mean Corpuscular Hgb 29.3 pg (27.0-32.0); Mean Corpuscular Volume 92.4 fL (81-99); Mean Platelet Vol. 10.2 fl (6.2-12.0); Monocyte# 0.37 X10^3/uL; Monocyte% 6.1 % (0-10); NRBC Flagged by Analyzer 0 % (0-5); Neutrophil # 3.37 X10^3/uL (2.7-7.7); Neutrophil % 56.1 % (47-70); Platelet Count 337 K/mm3 (150-450); RBC Distribution Width CV 14.3 % (11.6-14.6); RBC Distribution Width SD 48.5 fl (35.1-43.9)
[2023-12-15 11:32] LABS: ALB/GLOB Ratio 0.9 RATIO (0.9-2.4); AST(SGOT) 20 U/L (15-37); Alanine Aminotransfer ALT/SGPT 18 U/L (13-56); Albumin, Serum 3.6 g/dL (3.2-5.0); Alkaline Phosphatase 100 U/L (45-117); Anion Gap 4 (5-15); BUN 17 mg/dL (7-18); BUN/Creat Ratio 16.2 RATIO (10-20); Calcium,Total 9.3 mg/dL (8.5-10.1); Chloride 105 mmol/L (98-107); Creatinine, Serum 1.05 mg/dL (0.55-1.02); EST Glomerular Filtration Rate 54 mL/min (>60); Est Glom Filt Rate - Afr Amer 65 mL/min (>60); Globulin 3.8 g/dL (2.2-4.2); Glucose 85 mg/dL (74-106); Protein, Total 7.4 g/dL (6.4-8.2); Sodium Level 139 mmol/L (136-145)
== END | disposition home or self-care (01) ==
PROVIDERS: PCP Internal Medicine; Referring Provider Internal Medicine Rheumatology; Visit Provider Internal Medicine Rheumatology
DX: M06.00 Rheumatoid arthritis without rheumatoid factor, unspecified site (principal); Z79.899 Other long term (current) drug therapy
CPT/HCPCS: 36415; 80053; 85025

== ENCOUNTER → 2024-01-01 | Outpatient (CLI) | payer MEDICARE, BC, SELFPAY ==
--- NOTE | 2024-01-01 09:52 | ECHOD_ITS ---
Reason For Study: DYSPNEA Procedure This was a 2D Doppler, Color Flow transthoracic echocardiogram. The study was technically difficult. Exam performed in department. Left Ventricle Normal size and thickness. The left ventricular ejection fraction is 65 %. Normal diastology for age. Right Ventricle Mildly dilated right ventricle. Normal systolic function. Atria The left and right atria are normal. Mitral Valve Mild mitral annular calcification. Trivial mitral valve insufficiency. Tricuspid Valve Mild tricuspid valve insufficiency. Right ventricular systolic pressure estimated to be 42 mmHg. Aortic Valve The aortic valve is not well visualized in the short axis view. There is no aortic stenosis. No aortic valve insufficiency. Pulmonic Valve The pulmonic valve is not well visualized. Great Vessels Normal sized aortic root. Pericardium/Pleural No pericardial effusion. MMode/2D Measurements & Calculations LVIDd: 3.6 cm IVSd: 1.0 cm Ao root diam: 3.0 cm LVIDs: 2.3 cm LVPWd: 1.1 cm RVDd: 3.6 cm FS: 36.4 % LAV(MOD-bp): 45.5 ml LVAd ap4: 25.8 cm2 LVAd ap2: 21.8 cm2 LAV(MOD-bp) Indexed: 22.2 ml/m2 LVLd ap4: 8.0 cm LVLd ap2: 7.7 cm LAV(MOD-sp2): 50.4 ml EDV(MOD-sp4): 69.6 ml EDV(MOD-sp2): 53.3 ml LAV(MOD-sp4): 39.2 ml EDV(sp4-el): 70.6 ml EDV(sp2-el): 52.4 ml LVAs ap4: 16.1 cm2 LVAs ap2: 13.0 cm2 LVLs ap4: 7.0 cm LVLs ap2: 7.0 cm ESV(MOD-sp4): 31.5 ml ESV(MOD-sp2): 22.2 ml ESV(sp4-el): 31.4 ml ESV(sp2-el): 20.7 ml EF(MOD-sp4): 54.7 % EF(MOD-sp2): 58.4 % EF(sp4-el): 55.5 % SV(MOD-sp4): 38.1 ml SV(MOD-sp2): 31.2 ml SV(sp4-el): 39.2 ml LA dimension(2D): 3.3 cm LA A4 area: 15.6 cm2 RA A4 area: 14.2 cm2 TAPSE: 2.4 cm Time Measurements MV dec time: 0.26 sec Doppler Measurements & Calculations MV E max [place]: 94.1 cm/sec Lat Peak E' [place]: 5.2 cm/sec Med Peak E' [place]: 9.9 cm/sec MV A max [place]: 106.7 cm/sec E/E' lat: 18.1 E/E' med: 9.5 MV E/A: 0.88 MV V2 max: 136.2 cm/sec MV P1/2t max [place]: 116.3 cm/sec Ao V2 max: 117.6 cm/sec MV max P.4 mmHg MV P1/2t: 86.3 msec Ao max P.5 mmHg MV V2 mean: 62.5 cm/sec MV dec slope: 394.7 cm/sec2 Ao V2 mean: 84.9 cm/sec MV mean P.0 mmHg Ao mean P.2 mmHg MV V2 VTI: 30.1 cm MVA(P1/2t): 2.5 cm2 Ao V2 VTI: 24.8 cm AV (velocity ratio): 0.73 LV V1 max: 80.6 cm/sec TR max [place]: 291.5 cm/sec LV V1 max P.6 mmHg TR max P.0 mmHg LV V1 mean P.3 mmHg LV V1 mean: 55.3 cm/sec LV V1 VTI: 18.1 cm ECHO/Echo Complete Interpretation Summary The left ventricular ejection fraction is 65 %. Mildly dilated right ventricle. Mild mitral annular calcification. Mild tricuspid valve insufficiency. Right ventricular systolic pressure estimated to be 42 mmHg. The study was technically difficult. Ordering Physician: Elizabeth Foote Referring Physician: Jesus Ballard Performed By: Maribell Diana RDCS, RVT
== END | disposition home or self-care (01) ==
LOC: CVS 09:48
PROVIDERS: PCP Internal Medicine; Referring Provider Nurse Practitioner Gerontology; Visit Provider Nurse Practitioner Gerontology
DX: R06.00 Dyspnea, unspecified (principal)
CPT/HCPCS: 93306

== ENCOUNTER → 2024-01-23 | Outpatient (CLI) | payer MEDICARE, BC, SELFPAY ==
--- NOTE | 2024-01-26 08:50 | STRESSREP_ITS ---
Stress Test Report Date: 01/23/2024 Procedure: Pharmacologic stress nuclear imaging study Indications: Dyspnea Consent: Per the patient Procedure: The patient underwent pharmacologic (Regadenoson 0.4mg ) evaluation with a peak heart rate of 81 beats per minute (57%predicted maximal heart rate) and a peak blood pressure of 148/80 mmHg. The baseline ECG demonstrated sinus rhythm with left bundle branch block. The peak pharmacologic ECG demonstrated no diagnostic changes. There were no cardiac dysrhythmias pretest, during pharmacologic infusion, or recovery. There was no complaint of chest discomfort during pharmacologic infusion or recovery. The patient was injected with 13.9 millicuries of technetium 99m Cardiolite and subsequently rest SPECT Cardiolite nuclear imaging was obtained in the horizontal long, vertical long, and short axis views. The patient underwent pharmacologic (Regadenoson) evaluation. The patient was injected with 42.3 millicuries of technetium 99m Cardiolite and subsequently stress SPECT Cardiolite nuclear imaging was obtained in the horizontal long, vertical long, and short axis views. A gated Cardiolite study at peak stress was obtained. The examination was stopped secondary to completion of protocol. Rest and stress SPECT Cardiolite nuclear imaging status post realignment, normalization, and attenuation correction demonstrate mildly reduced perfusion at the apex both at rest as well as post pharmacological stress. No wall motion abnormality. Consider attenuation artifact. There is end systolic thickening and brightening. The gated Cardiolite study demonstrates myocardial thickening and inward wall motion. The reported LVEF is 76%. Impression: 1. Pharmacologic (Regadenoson) evaluation 2. Peak pharmacologic ECG with no diagnostic changes secondary to baseline left bundle branch block. 3. There were no cardiac dysrhythmias pretest, during pharmacologic infusion, or recovery. 5. Rest and stress SPECT Cardiolite nuclear imaging demonstrate relative uniform tracer uptake and myocardial perfusion appearing within normal limits. 6. The gated Cardiolite study reports an LVEF of 76%. This note was generated with [employer] software. It may contain incorrect words, spelling, and punctuation that were not noted in checking the note before signing.
== END | disposition home or self-care (01) ==
LOC: CVS 06:07
PROVIDERS: PCP Internal Medicine; Referring Provider Nurse Practitioner Gerontology; Visit Provider Nurse Practitioner Gerontology
DX: R06.00 Dyspnea, unspecified (principal); R07.89 Other chest pain; R53.83 Other fatigue
CPT/HCPCS: 78452; 93017; A9500; A4216; J2785

== ENCOUNTER → 2024-03-10 | Outpatient (CLI) | payer MEDICARE, BC, SELFPAY ==
[2024-03-10 18:11] LABS: Absolute Lymphocyte Count 2.37 X10^3/uL (0.83-4.51); Absolute Neutrophil Count 3.8 X10^3/uL (2.0-7.7); Basophil# 0.03 X10^3/uL; Basophil% 0.4 % (0-1); Eosinophil# 0.34 X10^3/uL; Eosinophils% 4.9 % (0-5); Hematocrit 39.7 % (37-47); Hemoglobin 12.9 g/dL (12.0-15.0); Lymphocyte # 2.37 X10^3/ul (0.83-4.51); Lymphocyte % 33.9 % (19-41); Mean Corp Hgb Conc 32.5 g/dL (32-36); Mean Corpuscular Hgb 29.5 pg (27.0-32.0); Mean Corpuscular Volume 90.6 fL (81-99); Mean Platelet Vol. 9.7 fl (6.2-12.0); Monocyte# 0.44 X10^3/uL; Monocyte% 6.3 % (0-10); NRBC Flagged by Analyzer 0 % (0-5); Neutrophil % 54.4 % (47-70); Platelet Count 317 K/mm3 (150-450); RBC Distribution Width SD 46.4 fl (35.1-43.9); Red Blood Count 4.38 M/mm3 (4.2-5.4)
[2024-03-10 18:35] LABS: ALB/GLOB Ratio 0.9 RATIO (0.9-2.4); AST(SGOT) 18 U/L (15-37); Alanine Aminotransfer ALT/SGPT 21 U/L (13-56); Albumin, Serum 3.7 g/dL (3.2-5.0); Alkaline Phosphatase 107 U/L (45-117); Anion Gap 7 (5-15); BUN 25 mg/dL (7-18); BUN/Creat Ratio 23.6 RATIO (10-20); Calcium,Total 9.5 mg/dL (8.5-10.1); Chloride 103 mmol/L (98-107); Creatinine, Serum 1.06 mg/dL (0.55-1.02); EST Glomerular Filtration Rate 53 mL/min (>60); Est Glom Filt Rate - Afr Amer 64 mL/min (>60); Glucose 79 mg/dL (74-106); Potassium 3.9 mmol/L (3.5-5.1); Protein, Total 7.7 g/dL (6.4-8.2); Sodium Level 139 mmol/L (136-145)
== END | disposition home or self-care (01) ==
PROVIDERS: PCP Internal Medicine; Referring Provider Internal Medicine Rheumatology; Visit Provider Internal Medicine Rheumatology
DX: M06.00 Rheumatoid arthritis without rheumatoid factor, unspecified site (principal); Z79.899 Other long term (current) drug therapy
CPT/HCPCS: 36415; 80053; 85025

== ENCOUNTER 2024-03-17 20:52 | Inpatient (IN) | payer MEDICARE, BC, SELFPAY ==
[2024-03-17 20:54] VITALS: BP 182/77; PULSE 92; RESP 18; TEMP 36.1; O2SAT 97; BMI 34.3
--- NOTE | 2024-03-17 21:40 | EDS_ITS ---
HPI HPI - GI History of Present Illness Chief Complaint: Abd Pain Detail of Chief Complaint: Abdominal pain Informant: patient Narrative Narrative: Patient presents with abdominal pain that started around 4 PM today. Patient thinks she might be getting another bowel obstruction because she has had 5 in the past. Patient's had some nausea with this but no vomiting. Patient has history of prior colon cancer and hernia repair with mesh. She denies urinary symptoms. She denies fever. Her last bowel movement was at 4 PM when the pain started. PFSH [facility] Medical History (Updated 03/17/24 @ 23:[address] Nan Morales, DO) CHF (congestive heart failure) Bowel obstruction Wrist fracture Carpal tunnel syndrome FH: total knee replacement Polymyalgia rheumatica GERD (gastroesophageal reflux disease) Mixed hyperlipidemia CKD (chronic kidney disease) stage 3, GFR 30-59 ml/min REY on CPAP Essential hypertension SBO (small bowel obstruction) Abnormal mammogram of left breast Abdominal pain History of colon cancer Rheumatoid arthritis Home Medications ?Medication ?Instructions ?Recorded ?Last Taken ?Type folic acid 1 mg tablet 2 tab PO DAILY SUPPLEMENT 10/20/15 11/28/20 09:30 History 2 tab fluoxetine 10 mg capsule 10 mg PO DAILY DEPRESSION 10/21/15 11/28/20 09:30 His tory 10 mg cholecalciferol (vitamin D3) 50 1,000 unit PO DAILY SUPPLEMENT 12/25/17 11/28/20 09:30 History mcg (2,000 unit) capsule 1000 u aspirin 81 mg tablet,delayed 81 mg PO DAILY heart health 12/24/19 11/28/20 09:30 History release 81 mg ascorbic acid (vitamin C) 500 mg 500 mg PO DAILY Supplement 03/12/20 11/28/20 09:30 History capsule 500 mg atorvastatin 10 mg tablet 10 mg PO QHS cholesterol 11/28/20 11/28/20 09:30 History 10 mg acetaminophen 500 mg tablet 500 mg PO Q6H PRN Pain 01/11/21 Unknown History amlodipine 5 mg tablet 5 mg PO QHS 01/11/21 Unknown History methotrexate sodium 2.5 mg tablet 15 mg PO DA SILVA RHEUMATOID 01/11/21 Unknown History hydroxychloroquine 200 mg tablet 200 mg PO BID inflammation 04/13/21 Unknown History furosemide 40 mg tablet 40 mg PO DAILY #90 tabs 07/05/21 Unknown Rx potassium chloride 20 mEq 20 meq PO BIDCM #180 tabs 07/05/21 Unknown Rx tablet,extended release(part/cryst) Allergy/AdvReac Type Severity Reaction Status Date / Time Penicillins (PCN) Allergy Rash Verified 03/17/24 20:54 Sulfa (Sulfonamide Allergy Rash Verified 03/17/24 20:54 Antibiotics) lisinopril AdvReac Unknown unknown Verified 03/17/24 20:54 azithromycin (From Zithromax) AdvReac Nausea/Vom/ Verified 03/17/24 20:54 Diarrhea codeine AdvReac Other Verified 03/17/24 20:54 hydrochlorothiazide AdvReac Rash Verified 03/17/24 20:54 nitroglycerin (From AdvReac Other Verified 03/17/24 20:54 Nitroglyn) Family History Sister Diabetes Asthma Hypertension Leukemia Brother Heart disease Hypertension Diabetes Father Myocardial infarction CAD (coronary artery disease) Mother Cancer Liver Hypertension Acute arthritis Surgical History (Updated 03/17/24 @ 21:04 by Puja Hernández) History of hip replacement History of appendectomy History of colonoscopy (~2015) History of hernia repair History of section History of colectomy (~2001) Social History Smoking Status: Former smoker alcohol intake: never substance use type: does not use caffeine: Yes Type: coffee Number of servings: 2 ROS ROS ED Review of Systems ROS Unobtainable: other Constitutional Constitutional ED: Reports lethargy; Denies chills, fever(s), sweats or weight loss Eyes Eyes: Denies blurry vision, change in vision or diplopia ENT ENT ED: Denies rhinorrhea or sore throat Cardiovascular Cardiovascular: Denies chest pain, orthopnea or racing heartbeat Respiratory/Chest Respiratory/Chest: Denies cough, dyspnea, dyspnea on exertion, orthopnea or sputum Gastrointestinal Gastrointestinal: Reports abdominal pain and nausea; Denies diarrhea or vomiting Genitourinary Genitourinary ED: Denies dysuria, hematuria or urinary frequency Musculoskeletal Musculoskeletal: Denies arthralgias, back pain, myalgias or neck pain Integumentary Denies abscess, Abrasions or rash Neurologic Neurologic: Denies headache(s) or weakness Psychiatric Psychiatric: Denies anxiety, depression or suicidal thoughts Endocrine Endocrinology: Denies polydipsia, polyphagia or polyuria Hematologic/Lymphatic Hematologic/Lymphatic: Denies easy bleeding, easy bruising or lymphadenopathy Allergic/Immunologic Allergic/Immunologic ED: Denies mouth swelling, tongue swelling or urticaria EXAM Physical Exam Const Vital Signs: 03/17/24 20:54 03/17/24 23:00 Temperature 97 F L Temperature Source Oral Pulse Rate 92 87 Respiratory Rate 18 20 H Blood Pressure 182/77 H 160/64 H Blood Pressure Mean 112 96 Pulse Ox 97 97 Oxygen Delivery Method Room Air Room Air Positive well nourished and well developed General Appearance ED: well developed and NAD HEENT Reports TM's clear and moist mucous membranes normocephalic and atraumatic; Negative for trauma or tenderness Tympanic Membrane ED: Yes TM's clear Eyes PERRL and EOMs intact bilaterally General Eye ED: Negative for pale conjunctiva or scleral icterus Neck no lymphadenopathy, supple and no JVD General: Negative for tenderness Chest Wall inspection of chest normal and palpation of chest normal Chest: Negative for tenderness Resp normal respiratory effort and clear to auscultation bilaterally Effort and Inspection: Negative for respiratory distress or pain with movement Auscultation: Negative for rhonchi, wheezes or diminished lung sounds Cardio regular rate, regular rhythm, S1 normal heart sound, S2 normal heart sound and no murmurs Peripheral Pulses: pulses 2+ throughout GI normal to inspection, nondistended, normoactive bowel sounds, soft to palpation, non-distended and no masses GI Narrative: Diffuse tenderness palpation especially in the upper abdomen. There is no rebound or rigidity. Mild guarding. Back/Spine no CVA tenderness and no thoracic nor lumbar tenderness Extremity normal to inspection General Extremety ED: Negative for edema General Extremity: Negative for edema Neuro oriented x3, CN's II-XII intact bilaterally, no sensory deficits noted and gait normal Sensorium / Orientation: awake, alert, oriented to person, oriented to place and oriented to time Motor Exam: strength 5/5 throughout and strength abnormal Psych mental status grossly normal Skin no rashes or lesions noted and no wounds MDM MDM MDM Narrative Medical decision making narrative: Patient presents with abdominal pain with history of frequent bowel obstructions. IV line established. CBC with differential obtained showed a white count of 12.6 with hemoglobin 13.6 and platelet count of 294. Chemistries unremarkable. Lactate was normal at 0.8. LFTs unremarkable. BUN 26 and creatinine 1.08. Lipase was normal at 22. Troponin normal at 16. EKG obtained on arrival showed a sinus rhythm with rate of 73 bpm with left bundle branch block. Patient was ordered CT scan of the abdomen pelvis which mitral potation shows small bowel obstruction. Official report from radiology pending. I did discuss case with general surgeon on-call Dr. Pan who also was able to visualize the CT images and agrees that there is a small bowel obstruction. Discussed case with hospitalist who will admit patient. Will place NG tube to low intermittent suction. Lab Data Attestation: I reviewed the patient's lab results. Labs: Laboratory Results - last 24 hr 03/17/24 21:47 WBC 12.6 H RBC 4.66 Hgb 13.6 Hct 41.5 MCV 89.1 MCH 29.2 MCHC 32.8 RDW Std Deviation 45.3 H RDW Coeff of Unique 14.0 Plt Count 294 MPV 9.5 Immature Gran % (Auto) 0.400 Neut % (Auto) 71.4 H Lymph % (Auto) 19.6 [place] % (Auto) 5.4 Eos % (Auto) 3.0 Baso % (Auto) 0.2 Absolute Neuts (auto) 9.0 H Absolute Lymphs (auto) 2.47 Nucleated RBC % 0 Sodium 138 Potassium 3.6 Chloride 103 Carbon Dioxide 28.0 Anion Gap 7 BUN 26 H Creatinine 1.08 H Estim Creat Clear Calc 48.68 Est GFR (MDRD) Af Amer 63 Est GFR (MDRD) Non-Af 52 L BUN/Creatinine Ratio 24.1 H Glucose 113 H Lactic Acid 0.8 Calcium 9.4 Total Bilirubin 0.70 AST 19 ALT 20 Alkaline Phosphatase 95 Troponin I High Sens 16 Total Protein 7.5 Albumin 3.7 Globulin 3.8 Albumin/Globulin Ratio 1.0 Lipase 22 EKG Initial EKG: Attestation: I personally reviewed and interpreted this EKG as follows: Comments: Sinus rhythm with ventricular rate of 73 bpm with left bundle branch block Discharge Plan Triage Chief Complaint: Abd Pain ED Provider: Nan Morales Dx/Rx/DC Orders Clinical Impression: Small bowel obstruction, Abdominal pain, Leukocytosis Prescriptions: No Action amlodipine 5 mg tablet 5 mg PO QHS acetaminophen 500 mg tablet 500 mg PO Q6H PRN (Reason: Pain) potassium chloride 20 mEq tablet,ER particles/crystals 20 meq PO BIDCM Qty: 180 3RF furosemide 40 mg tablet 40 mg PO DAILY Qty: 90 3RF folic acid 1 MG tablet 2 tab PO DAILY Patient Comments: supplement fluoxetine 10 MG capsule 10 mg PO DAILY Patient Comments: depression methotrexate sodium 2.5 mg tablet 15 mg PO DA SILVA cholecalciferol (vitamin D3) 2,000 UNIT capsule 1,000 unit PO DAILY aspirin 81 MG tablet,delayed release (DR/EC) 81 mg PO DAILY hydroxychloroquine 200 mg tablet 200 mg PO BID ascorbic acid (vitamin C) 500 MG capsule 500 mg PO DAILY atorvastatin 10 MG tablet 10 mg PO QHS Primary Care Provider: Jesus Ballard Referrals: Jesus Ballard MD [Primary Care Provider] - Print Language: Kinyarwanda Disposition Disposition: Acute Care Hospital [facility]
--- NOTE | 2024-03-17 21:40 | CT_ITS ---
We are attempting to reach an attending provider to discuss findings. An addendum with communication details will be sent when the communication is complete. INDICATION: abdominal pain EXAMINATION: CT ABDOMEN AND PELVIS WITH CONTRAST - CT Abdomen And Pelvis W/ Contrast Injection TECHNIQUE: Helically acquired images were obtained of the abdomen and pelvis following IV contrast. A radiation dose optimization technique was used for this scan. IV Contrast dosage and agent: 100 cc [id number] Oral contrast: None. COMPARISON: 08/29/2023 FINDINGS: LOWER CHEST: Lung bases are clear. No cardiomegaly or pericardial effusion. LIVER: Homogeneous. No focal mass. GALLBLADDER AND BILIARY TREE: No calcified gallstones. No gallbladder distension or wall edema. No intra- or extrahepatic biliary ductal dilation. PANCREAS: No focal cystic or solid mass. SPLEEN: Normal size without focal cystic or solid mass. ADRENAL GLANDS: No nodules. KIDNEYS AND URETERS: Normal renal size and position. No hydronephrosis. PERITONEUM: No free air. Trace pelvic ascites. BOWEL: Normal appendix. Multiple distended small bowel loops anteriorly with transition in the lower abdomen. Largest loops up to 3.9 cm in diameter. Overall pattern in appearance similar to prior study.. No abnormal colonic distention. Colorectal anastomosis. LYMPH NODES: No enlarged mesenteric or retroperitoneal lymph nodes. VESSELS: Aorta is non-dilated. URINARY BLADDER: Unremarkable. REPRODUCTIVE ORGANS: No pelvic masses. ABDOMINAL WALL: Prior ventral hernia repair. BONES: Right hip replacement. No acute or aggressive abnormality. CT/Abdomen/Pelvis W IV Cont ONLY IMPRESSION: Small bowel obstruction with transition in the lower abdomen. Overall appearance similar to prior study. Electronically Signed: Neal Johns MD at 23:48 EDT ,
--- NOTE | 2024-03-17 21:40 | EKG12_ITS ---
Test Reason : DYSRHYTHMIA Blood Pressure : / mmHG Vent. Rate : 073 BPM Atrial Rate : 073 BPM P-R Int : 170 ms QRS Dur : 144 ms QT Int : 448 ms P-R-T Axes : 059 029 103 degrees QTc Int : 493 ms Normal sinus rhythm with sinus arrhythmia Left bundle branch block Abnormal ECG Confirmed by Danny Brian ([id number]), editorial intern NORA POLK ([id number]) on 03/18/2024 11:15:17 AM Referred By: Confirmed By:Danny Brian
[2024-03-17 21:55] LABS: Absolute Lymphocyte Count 2.47 X10^3/uL (0.83-4.51); Basophil# 0.03 X10^3/uL; Basophil% 0.2 % (0-1); Eosinophil# 0.38 X10^3/uL; Hematocrit 41.5 % (37-47); Hemoglobin 13.6 g/dL (12.0-15.0); Lymphocyte # 2.47 X10^3/ul (0.83-4.51); Lymphocyte % 19.6 % (19-41); Mean Corp Hgb Conc 32.8 g/dL (32-36); Mean Corpuscular Hgb 29.2 pg (27.0-32.0); Mean Corpuscular Volume 89.1 fL (81-99); Mean Platelet Vol. 9.5 fl (6.2-12.0); Monocyte# 0.68 X10^3/uL; Monocyte% 5.4 % (0-10); NRBC Flagged by Analyzer 0 % (0-5); Neutrophil # 8.97 X10^3/uL (2.7-7.7); Neutrophil % 71.4 % (47-70); Platelet Count 294 K/mm3 (150-450); RBC Distribution Width SD 45.3 fl (35.1-43.9); Red Blood Count 4.66 M/mm3 (4.2-5.4); White Blood Count 12.6 K/mm3 (4.4-11.0)
[2024-03-17 22:22] LABS: AST(SGOT) 19 U/L (15-37); Alanine Aminotransfer ALT/SGPT 20 U/L (13-56); Albumin, Serum 3.7 g/dL (3.2-5.0); Alkaline Phosphatase 95 U/L (45-117); Anion Gap 7 (5-15); BUN 26 mg/dL (7-18); BUN/Creat Ratio 24.1 RATIO (10-20); Calcium,Total 9.4 mg/dL (8.5-10.1); Chloride 103 mmol/L (98-107); Creatinine, Serum 1.08 mg/dL (0.55-1.02); EST Glomerular Filtration Rate 52 mL/min (>60); Est Glom Filt Rate - Afr Amer 63 mL/min (>60); Estimated Creatinine Clearance 48.68 ml/min; Globulin 3.8 g/dL (2.2-4.2); Glucose 113 mg/dL (74-106); Lipase 22 U/L (13-75); Potassium 3.6 mmol/L (3.5-5.1); Protein, Total 7.5 g/dL (6.4-8.2); Sodium Level 138 mmol/L (136-145); Troponin-I HS 16 pg/mL (3.0-54.0)
[2024-03-17 22:47] LABS: Lactic Acid 0.8 mmol/L (0.4-1.9)
[2024-03-17 23:00] VITALS: BP 160/64; PULSE 87; RESP 20; O2SAT 97
--- NOTE | 2024-03-17 23:54 | PCM.HP.STD ---
HPI - General General Date of Admission: 03/17/24 Date of Service: 03/17/24 Chief Complaint: Abdominal pain, distention, nausea. HPI Narrative The patient is an 78 y/o F w/ PMHx: Former tobacco use, Anxiety and Depression, CKD stage III unclear subtype, GERD, PMR, Rheumatoid arthritis, Hx Colon CA, REY on CPAP, HLD, HTN, Hx several prior SBO resolved conservatively per her report who presents to the [facility] ED on 03/17/24 with history of onset of abdominal discomfort, distention, lack of flatus, nausea without emesis starting approximately 4 PM with her last bowel movement noted to be at that time which was solid and normal in caliber with pain currently 8 out of 10 in severity however she notes this is constant dull aching worse in the right upper quadrant but does have periods of more severe sharp pain raising up to 10 out of 10 in severity prompting eventual ED evaluation. Workup in the ED included T97, heart rate 92, BP 182/77, respiratory rate 18, 97% on room air, CBC with WC 12.6, human 13.6, platelets 294 with left shift, CMP with BUN/2026/1.08, GFR 52, glucose 113, hepatic profile unremarkable, lactic acid 0.8, troponin 16, lipase 22, CT abdomen and pelvis with evidence of small bowel obstruction with transition in the lower abdomen. NG tube placed in the ED. ED discussed case with Dr. Pan. [facility] Medical History Anxiety and depression Bowel obstruction Wrist fracture Carpal tunnel syndrome FH: total knee replacement Polymyalgia rheumatica GERD (gastroesophageal reflux disease) Mixed hyperlipidemia CKD (chronic kidney disease) stage 3, GFR 30-59 ml/min REY on CPAP Essential hypertension SBO (small bowel obstruction) Abnormal mammogram of left breast History of colon cancer Rheumatoid arthritis Home Medications ?Medication ?Instructions ?Recorded ?Last Taken ?Type folic acid 1 mg tablet 2 tab PO DAILY SUPPLEMENT 10/20/15 11/28/20 09:30 History 2 tab fluoxetine 10 mg capsule 10 mg PO DAILY DEPRESSION 10/21/15 11/28/20 09:30 History 10 mg cholecalciferol (vitamin D3) 50 1,000 unit PO DAILY SUPPLEMENT 12/25/17 11/28/20 09:30 History mcg (2,000 unit) capsule 1000 u aspirin 81 mg tablet,delayed 81 mg PO DAILY heart health 12/24/19 11/28/20 09:30 History release 81 mg ascorbic acid (vitamin C) 500 mg 500 mg PO DAILY Supplement 03/12/20 11/28/20 09:30 History capsule 500 mg atorvastatin 10 mg tablet 10 mg PO QHS cholesterol 11/28/20 11/28/20 09:30 History 10 mg acetaminophen 500 mg tablet 500 mg PO Q6H PRN Pain 01/11/21 Unknown History amlodipine 5 mg tablet 5 mg PO QHS 01/11/21 Unknown History methotrexate sodium 2.5 mg tablet 15 mg PO DA SILVA RHEUMATOID 01/11/21 Unknown History hydroxychloroquine 200 mg tablet 200 mg PO BID inflammation 04/13/21 Unknown History furosemide 40 mg tablet 40 mg PO DAILY #90 tabs 07/05/21 Unknown Rx potassium chloride 20 mEq 20 meq PO BIDCM #180 tabs 07/05/21 Unknown Rx tablet,extended release(part/cryst) Allergy/AdvReac Type Severity Reaction Status Date / Time Penicillins (PCN) Allergy Rash Verified 03/17/24 20:54 Sulfa (Sulfonamide Allergy Rash Verified 03/17/24 20:54 Antibiotics) lisinopril AdvReac Unknown unknown Verified 03/17/24 20:54 azithromycin (From Zithromax) AdvReac Nausea/Vom/ Verified 03/17/24 20:54 Diarrhea codeine AdvReac Other Verified 03/17/24 20:54 hydrochlorothiazide AdvReac Rash Verified 03/17/24 20:54 nitroglycerin (From AdvReac Other Verified 03/17/24 20:54 Nitroglyn) Family History Sister Diabetes Asthma Hypertension Leukemia Brother Heart disease Hypertension Diabetes Father Myocardial infarction CAD (coronary artery disease) Mother Cancer Liver Hypertension Acute arthritis Surgical History History of hip replacement History of appendectomy History of colonoscopy (~2015) History of hernia repair History of section History of colectomy (~2001) Social History household members: none Smoking Status: Former smoker alcohol intake: never substance use type: does not use caffeine: Yes Type: coffee Number of servings: 2 ROS ROS Narrative Admission Review of Systems: CONSTITUTIONAL: No weight loss, fever, chills, + weakness or fatigue. HEENT: Eyes: No visual loss, blurred vision, double vision or yellow sclerae. Ears, Nose, Throat: No hearing loss, sneezing, congestion, runny nose or sore throat. SKIN: No rash or itching, lesions, wounds. CARDIOVASCULAR: No chest pain, chest pressure or chest discomfort, palpitations, edema, orthopnea, syncopal events. RESPIRATORY: No shortness of breath, cough or sputum, wheezing, hemoptysis. GASTROINTESTINAL: + anorexia, nausea without vomiting, abdominal pain and distention, lack of flatus. No diarrhea, melena, BRBPR. GENITOURINARY: No dysuria, frequency, urgency or retention. NEUROLOGICAL: No headache, dizziness, syncope, paralysis, ataxia, numbness or tingling in the extremities, focal weakness, change in bowel or bladder control, seizure. MUSCULOSKELETAL: + muscle, back pain, joint pain or stiffness. HEMATOLOGIC: No anemia, bleeding or bruising. LYMPHATICS: No enlarged nodes. No history of splenectomy. PSYCHIATRIC: + History of anxiety and depression. ENDOCRINOLOGIC: No reports of sweating, cold or heat intolerance. No polyuria or polydipsia. ALLERGIES: No history of asthma, hives, eczema or rhinitis. Vital Signs Vital Signs Vital Signs: 03/17/24 20:54 03/17/24 23:00 Temperature 97 F L Temperature Source Oral Pulse Rate 92 87 Respiratory Rate 18 20 H Blood Pressure 182/77 H 160/64 H Blood Pressure Mean 112 96 Pulse Ox 97 97 Oxygen Delivery Method Room Air Room Air Weight Weight: 213 lb Body Mass Index (BMI) 34.3 Physical Exam Narrative Physical Examination: General: Awake, alert, oriented x 3 and cooperative, seated upright in the ED bed, uncomfortable appearing, currently rates her abdominal discomfort 8 out of 10 in severity. Skin: Normal color, normal turgor, no icterus, no cyanosis except occasional abrasion, staged ecchymoses. HEENT: AT/NC, EOMI, PERRLA, dry MM, no carotid bruits or JVD noted. Lungs: Diminished, greater bases, appropriate effort, no rales, ronchi or wheezing. Heart: Regular rate and rhythm; no gallop, rub audible. Abdomen: Soft, discomfort to palpation primarily right upper quadrant with no guarding or rebound, absent bowel sounds, distended, no appreciated HSM. Extremities: No cyanosis, no clubbing, peripheral ankle nonpitting edema. Neurological: Patient awake, alert, oriented as noted, cognitive function intact; pupils equally reactive to light and accommodation, cranial nerves grossly normal, moving all 4 extremities, no focal deficits, strength moderately globally decreased secondary to acute presentation. Psychiatric: Affect appears fatigued, uncomfortable, no acute evidence of depressive or anxiety feelings but does have underlying history. Results Lab / Micro Data 03/17/24 21:47 03/17/24 21:47 Labs: Laboratory Results - last 24 hr 03/17/24 21:47: WBC 12.6 H, RBC 4.66, Hgb 13.6, Hct 41.5, MCV 89.1, MCH 29.2, MCHC 32.8, RDW Std Deviation 45.3 H, RDW Coeff of Unique 14.0, Plt Count 294, MPV 9.5, Immature Gran % (Auto) 0.400, Neut % (Auto) 71.4 H, Lymph % (Auto) 19.6, [place] % (Auto) 5.4, Eos % (Auto) 3.0, Baso % (Auto) 0.2, Absolute Neuts (auto) 9.0 H, Absolute Lymphs (auto) 2.47, Nucleated RBC % 0, Sodium 138, Potassium 3.6, Chloride 103, Carbon Dioxide 28.0, Anion Gap 7, BUN 26 H, Creatinine 1.08 H, Estim Creat Clear Calc 48.68, Est GFR (MDRD) Af Amer 63, Est GFR (MDRD) Non-Af 52 L, BUN/Creatinine Ratio 24.1 H, Glucose 113 H, Lactic Acid 0.8, Calcium 9.4, Total Bilirubin 0.70, AST 19, ALT 20, Alkaline Phosphatase 95, Troponin I High Sens 16, Total Protein 7.5, Albumin 3.7, Globulin 3.8, Albumin/Globulin Ratio 1.0, Lipase 22 Imaging Radiology Impression Abdomen/Pelvis CT 03/17/24 21:40 IMPRESSION: Small bowel obstruction with transition in the lower abdomen. Overall appearance similar to prior study. Electronically Signed: Neal Johns MD at 23:48 EDT , Assessment & Plan Assessment/Plan (1) Small bowel obstruction: PLAN: Plan The patient is an 78 y/o F w/ PMHx: Former tobacco use, Anxiety and Depression, CKD stage III unclear subtype, GERD, PMR, Rheumatoid arthritis, Hx Colon CA, REY on CPAP, HLD, HTN, Hx several prior SBO resolved conservatively per her report who presents to the [facility] ED on 03/17/24 with history of onset of abdominal discomfort, distention, lack of flatus, nausea without emesis starting approximately 4 PM with her last bowel movement noted to be at that time which was solid and normal in caliber with pain currently 8 out of 10 in severity however she notes this is constant dull aching worse in the right upper quadrant but does have periods of more severe sharp pain raising up to 10 out of 10 in severity prompting eventual ED evaluation. #1. Abdominal pain, abdominal distention, lack of flatus, nausea without emesis w/ SBO: Will admit to MS, maintain on IVFs, continue NGT to suction, strict I&Os, IV pain/anti-emetics PRN, serial KUB as needed to montior bowel function, PPI IV, maintain NPO on bowel rest. General surgery consulted to continue to follow alongside. #2. Chronic Kidney Disease Stage III, unclear subtype: Admission BUN/Cr 26/1.08, GFR 52, baseline renal function primarily 0.8-1.0, repeat BMP in AM. #3. Rheumatoid arthritis, PMR: Will temporarily hold patient home Plaquenil and methotrexate regimen, resume once oral intake appropriate, also holding temporarily folic acid regimen. From current list does not appear to be on any chronic steroids. #4. History of colon cancer: Status post partial colectomy 2001, considered in remission, encourage continued outpatient follow-up. #5. Hypertension: Will temporally hold patient home amlodipine, as needed IV hydralazine in interim. #6. Hyperlipidemia: We will temporarily hold patient home oral atorvastatin, resume once appropriate. #7. Anxiety and depression: We will temporarily hold patient home fluoxetine, resume once oral intake appropriate. #8. Obesity: Weight loss and lifestyle changes encouraged. #9. REY: Given presentation we will temporally hold CPAP, may use supplemental oxygen as needed. #10. Former tobacco use: Encourage continued tobacco cessation. #11. GERD: Will maintain on IV PPI. #12. DVT prophylaxis: Lovenox. #13. CODE status: Patient SOO is her daughter who is present and living will is currently in place. Discussed CODE status at length including difference between FULL code, DNR-CCA and DNR-CC status. Following discussions about the differences in these status, requested DNR-CCA, no intubation. Advanced Care Planning Face to Face Time: 16 minutes. Charges/Coding Visit Charges Inpatient E&M: 98876 Init Hosp L3 Procedures Hospitalists Procedures: 62530 Advncd Care Plan 30 Min
[2024-03-18] VITALS (11 sets, daily range): BP systolic 122–152; BP diastolic 46–86; PULSE 70–86; RESP 16–18; TEMP 36.4–36.7; O2SAT 92–96; BMI 34.1
--- NOTE | 2024-03-18 00:02 | RAD_ITS ---
INDICATION: NG Insertion COMPARISON: Abdominal CT previous day. FINDINGS: Single frontal views of the upper abdomen. Enteric tube tip overlies left mid abdomen, likely mid stomach. Contrast within bilateral urinary collecting systems. Abdominal wall mesh anchors in place. Nonobstructive bowel gas pattern. No obvious free air. No definite suspicious calcifications. No mass appreciated. RAD/Abdomen Single View (Portable) IMPRESSION: Enteric tube tip overlies left mid abdomen, likely mid stomach. Electronically Signed: Leandro Bryant MD at 2:50 EDT ,
[2024-03-18] MEDS: Ondansetron 4 MG/2 ML Vial IV ×2 (00:09→10:09)
[2024-03-18] MEDS: Morphine 4 MG/ML Syringe IV (00:09)
[2024-03-18] MEDS: 0.9% Normal Saline (1000mL) 1,000 ML 100 ML IV ×2 (03:01→12:41)
[2024-03-18] MEDS: Morphine 2 MG/ML Syringe 4 MG IV ×3 (03:16→14:25)
[2024-03-18] MEDS: proCHLORPERazine 10 MG/2 ML Vial 5 MG IV ×2 (03:17→14:23)
[2024-03-18] MEDS: Pantoprazole Sodium 40 MG in 0.9% Normal Saline (100mL MB+) 100 ML 330 MG IV ×3 (04:21→20:19)
[2024-03-18 05:45] LABS: Absolute Lymphocyte Count 0.55 X10^3/uL (0.83-4.51); Absolute Neutrophil Count 14.2 X10^3/uL (2.0-7.7); Basophil# 0.09 X10^3/uL; Basophil% 0.6 % (0-1); Eosinophil# 0.11 X10^3/uL; Eosinophils% 0.7 % (0-5); Hematocrit 46.2 % (37-47); Lymphocyte # 0.55 X10^3/ul (0.83-4.51); Lymphocyte % 3.5 % (19-41); Mean Corp Hgb Conc 32.5 g/dL (32-36); Mean Corpuscular Hgb 29.5 pg (27.0-32.0); Mean Corpuscular Volume 90.8 fL (81-99); Mean Platelet Vol. 9.2 fl (6.2-12.0); Monocyte% 5.7 % (0-10); NRBC Flagged by Analyzer 0 % (0-5); Neutrophil # 14.17 X10^3/uL (2.7-7.7); Neutrophil % 89.2 % (47-70); POSITIVE DIFFERENTIAL YES; Platelet Count 297 K/mm3 (150-450); RBC Distribution Width CV 14.1 % (11.6-14.6); RBC Distribution Width SD 47.2 fl (35.1-43.9); Red Blood Count 5.09 M/mm3 (4.2-5.4); White Blood Count 15.9 K/mm3 (4.4-11.0)
--- NOTE | 2024-03-18 05:55 | RAD_ITS ---
INDICATION: SBO COMPARISON: Abdominal radiograph same day and abdominal CT previous day. FINDINGS: 2 frontal views of the abdomen. Contrast within bilateral urinary collecting systems and urinary bladder. Enteric tube tip overlies left mid abdomen, likely mid stomach. Abdominal wall mesh anchors in place. Nonobstructive bowel gas pattern. No obvious free air. No definite suspicious calcifications. No mass appreciated. Right total hip arthroplasty, incompletely imaged, although no obvious hardware complication. RAD/Abdomen Single View (Portable) IMPRESSION: Enteric tube tip overlies left mid abdomen, likely mid stomach. Electronically Signed: Leandro Bryant MD at 6:27 EDT ,
--- NOTE | 2024-03-18 06:20 | RAD_ITS ---
INDICATION: Gastrografin challenge. EXAMINATION/TECHNIQUE: Contrast was instilled through the NG tube into the stomach. Serial images of the abdomen were obtained after the administration of contrast. COMPARISON: Abdominal x-ray dated March 18, 2024. FINDINGS: After administration of contrast through the NG tube there is opacification of the stomach. Mildly dilated small bowel in the upper midabdomen is noted. Serial abdominal images up to 22 hours were obtained. At 22 hours, contrast was distributed through the colon with minimal contrast remaining in small bowel. RAD/Small Bowel Series Only IMPRESSION: Dilatation of small bowel at the beginning of the study. At 22 hours, contrast in colon. No acute finding. Electronically Signed: Cuong Maza MD at 9:39 EDT ,
[2024-03-18 06:27] LABS: ALB/GLOB Ratio 0.9 RATIO (0.9-2.4); AST(SGOT) 23 U/L (15-37); Alanine Aminotransfer ALT/SGPT 17 U/L (13-56); Albumin, Serum 3.6 g/dL (3.2-5.0); Alkaline Phosphatase 87 U/L (45-117); Anion Gap 8 (5-15); BUN 25 mg/dL (7-18); BUN/Creat Ratio 21.4 RATIO (10-20); Calcium,Total 9.3 mg/dL (8.5-10.1); Chloride 105 mmol/L (98-107); Creatinine, Serum 1.17 mg/dL (0.55-1.02); EST Glomerular Filtration Rate 47 mL/min (>60); Est Glom Filt Rate - Afr Amer 57 mL/min (>60); Estimated Creatinine Clearance 44.79 ml/min; Globulin 3.8 g/dL (2.2-4.2); Glucose 154 mg/dL (74-106); Potassium 3.9 mmol/L (3.5-5.1); Protein, Total 7.4 g/dL (6.4-8.2); Sodium Level 137 mmol/L (136-145)
--- NOTE | 2024-03-18 07:09 | CON.PCM.SX_ITS ---
Assessment & Plan Assessment/Plan (1) Small bowel obstruction: (2) Leukocytosis: PLAN: Plan Plan to check a UA as patient that she had increased frequency yesterday was not checked in the ER on admit. Discussed with hospitalist will plan to prophylactically treat. Continue n.p.o./NG/IV fluids patient is agreeable to trying conservative management will do Gastrografin small bowel follow-through this morning. Patient is aware that if she did need surgery there could be a possibility a lot of adhesions and injury to the small bowel with the large piece of mesh?patient would like to avoid surgery if possible. Patient's creatinine is up a little as well as her hemoglobin likely due to dehydration we will plan to give a bolus of 500 cc. Noris Pan M.D. Pager: [phone] [facility] [address] [place] [address], [facility], [address] [place] [id number] Office: [phone] HPI Consult Data Date of Consult: 03/18/24 HPI Narrative HPI Narrative: FABIO PORTILLO, is a 78 F who presents to the ER due to abdominal pain about 4 PM. Patient did have some nausea and vomiting. Patient only had about 300 in the canister this morning. Patient states she did throw up about 5 AM a small amount and has been feeling better since. Patient still has some soreness in the upper abdomen but improved from previous. Patient states that yesterday morning when she woke up she noticed increased frequency and was not sure if she was getting a UTI or not. Patient did not have a UA checked in the ER. Her blood count was 12.6 this morning is up to 15.9. Patient's lactic acid was normal on admit at 1.2. [facility] Medical History Anxiety and depression Bowel obstruction Wrist fracture Carpal tunnel syndrome FH: total knee replacement Polymyalgia rheumatica GERD (gastroesophageal reflux disease) Mixed hyperlipidemia CKD (chronic kidney disease) stage 3, GFR 30-59 ml/min REY on CPAP Essential hypertension SBO (small bowel obstruction) Abnormal mammogram of left breast History of colon cancer Rheumatoid arthritis Home Medications ?Medication ?Instructions ?Recorded ?Last Taken ?Type folic acid 1 mg tablet 2 tab PO DAILY SUPPLEMENT 10/20/15 11/28/20 09:30 History 2 tab fluoxetine 10 mg capsule 10 mg PO DAILY DEPRESSION 10/21/15 11/28/20 09:30 History 10 mg cholecalciferol (vitamin D3) 50 1,000 unit PO DAILY SUPPLEMENT 12/25/17 11/28/20 09:30 History mcg (2,000 unit) capsule 1000 u aspirin 81 mg tablet,delayed 81 mg PO DAILY heart health 12/24/19 11/28/20 09:30 History release 81 mg ascorbic acid (vitamin C) 500 mg 500 mg PO DAILY Supplement 03/12/20 11/28/20 09:30 History capsule 500 mg atorvastatin 10 mg tablet 10 mg PO QHS cholesterol 11/28/20 11/28/20 09:30 History 10 mg acetaminophen 500 mg tablet 500 mg PO Q6H PRN Pain 01/11/21 Unknown History amlodipine 5 mg tablet 5 mg PO QHS 01/11/21 Unknown History methotrexate sodium 2.5 mg tablet 15 mg PO DA SILVA RHEUMATOID 01/11/21 Unknown History hydroxychloroquine 200 mg tablet 200 mg PO BID inflammation 04/13/21 Unknown History furosemide 40 mg tablet 40 mg PO DAILY #90 tabs 07/05/21 Unknown Rx potassium chloride 20 mEq 20 meq PO BIDCM #180 tabs 07/05/21 Unknown Rx tablet,extended release(part/cryst) Allergy/AdvReac Type Severity Reaction Status Date / Time Penicillins (PCN) Allergy Rash Verified 03/17/24 20:54 Sulfa (Sulfonamide Allergy Rash Verified 03/17/24 20:54 Antibiotics) lisinopril AdvReac Unknown unknown Verified 03/17/24 20:54 azithromycin (From Zithromax) AdvReac Nausea/Vom/ Verified 03/17/24 20:54 Diarrhea codeine AdvReac Other Verified 03/17/24 20:54 hydrochlorothiazide AdvReac Rash Verified 03/17/24 20:54 nitroglycerin (From AdvReac Other Verified 03/17/24 20:54 Nitroglyn) Family History Sister Diabetes Asthma Hypertension Leukemia Brother Heart disease Hypertension Diabetes Father Myocardial infarction CAD (coronary artery disease) Mother Cancer Liver Hypertension Acute arthritis Surgical History History of hip replacement History of appendectomy History of colonoscopy (~2015) History of hernia repair History of section History of colectomy (~2001) Social History household members: none Smoking Status: Former smoker alcohol intake: never substance use type: does not use caffeine: Yes Type: coffee Number of servings: 2 ROS Constitutional Constitutional: Reports anorexia Eyes Eyes: Denies loss of central vision ENT HEENT: Denies dysphagia Cardiovascular Cardiovascular: Denies chest pain Respiratory/Chest Respiratory/Chest: Denies productive cough Gastrointestinal Gastrointestinal: Reports abdominal pain, constipation, nausea and vomiting Genitourinary Genitourinary: Reports urinary frequency; Denies dysuria Integumentary Integumentary: Denies jaundice Neurologic Neurologic: Denies focal weakness Psychiatric Psychiatric: Denies depression Endocrine Endocrinology: Denies palpitations Hematologic/Lymphatic Hematologic/Lymphatic: Denies easy bleeding Physical Exam Narrative NG in place Const alert, oriented x3 and no apparent distress General Appearance: cooperative HEENT normocephalic and head/scalp atraumatic Resp normal respiratory effort Cardio regular rate GI soft to palpation; Negative for non-distended Palpation: tender epigastric and RUQ; Negative for guarding Extremity no clubbing, cyanosis or edema Neuro CN's II-XII intact bilaterally Psych mental status grossly normal Lab / Micro Data 03/18/24 05:28 03/18/24 05:28 Labs: Laboratory Results - last 24 hr 03/17/24 21:47: WBC 12.6 H, RBC 4.66, Hgb 13.6, Hct 41.5, MCV 89.1, MCH 29.2, MCHC 32.8, RDW Std Deviation 45.3 H, RDW Coeff of Unique 14.0, Plt Count 294, MPV 9.5, Immature Gran % (Auto) 0.400, Neut % (Auto) 71.4 H, Lymph % (Auto) 19.6, [place] % (Auto) 5.4, Eos % (Auto) 3.0, Baso % (Auto) 0.2, Absolute Neuts (auto) 9.0 H, Absolute Lymphs (auto) 2.47, Nucleated RBC % 0, Sodium 138, Potassium 3.6, Chloride 103, Carbon Dioxide 28.0, Anion Gap 7, BUN 26 H, Creatinine 1.08 H , Estim Creat Clear Calc 48.68, Est GFR (MDRD) Af Amer 63, Est GFR (MDRD) Non-Af 52 L, BUN/Creatinine Ratio 24.1 H, Glucose 113 H, Lactic Acid 0.8, Calcium 9.4, Total Bilirubin 0.70, AST 19, ALT 20, Alkaline Phosphatase 95, Troponin I High Sens 16, Total Protein 7.5, Albumin 3.7, Globulin 3.8, Albumin/Globulin Ratio 1.0, Lipase 22 03/18/24 05:28: WBC 15.9 H, RBC 5.09, Hgb 15.0, Hct 46.2, MCV 90.8, MCH 29.5, MCHC 32.5, RDW Std Deviation 47.2 H, RDW Coeff of Unique 14.1, Plt Count 297, MPV 9.2, Immature Gran % (Auto) 0.300, Neut % (Auto) 89.2 H, Lymph % (Auto) 3.5 L, [place] % (Auto) 5.7, Eos % (Auto) 0.7, Baso % (Auto) 0.6, Absolute Neuts (auto) 14.2 H, Absolute Lymphs (auto) 0.55 L, Nucleated RBC % 0, Sodium 137, Potassium 3.9, Chloride 105, Carbon Dioxide 24.0, Anion Gap 8, BUN 25 H, Creatinine 1.17 H , Estim Creat Clear Calc 44.79, Est GFR (MDRD) Af Amer 57 L, Est GFR (MDRD) Non- Af 47 L, BUN/Creatinine Ratio 21.4 H, Glucose 154 H, Calcium 9.3, Total Bilirubin 0.70, AST 23, ALT 17, Alkaline Phosphatase 87, Total Protein 7.4, Albumin 3.6, Globulin 3.8, Albumin/Globulin Ratio 0.9 Imaging Radiology Impression Abdomen/Pelvis CT 03/17/24 21:40 IMPRESSION: Small bowel obstruction with transition in the lower abdomen. Overall appearance similar to prior study. Electronically Signed: Neal Johns MD at 23:48 EDT , ADDENDUM: 03/18/24 0003 IMPRESSION: Small bowel obstruction with transition in the lower abdomen. Overall appearance similar to prior study. N.B. : The above Results were Read Back by Neal Johns MD to Nan Morales DO, and understanding confirmed on 03/17/2024 23:56:17 (ET). Electronically Signed: Neal Johns MD at 23:48 EDT , KUB X-Ray 03/18/24 00:02 IMPRESSION: Enteric tube tip overlies left mid abdomen, likely mid stomach. Electronically Signed: Leandro Bryant MD at 2:50 EDT , KUB X-Ray 03/18/24 05:55 IMPRESSION: Enteric tube tip overlies left mid abdomen, likely mid stomach. Electronically Signed: Leandro Bryant MD at 6:27 EDT , Charges/Coding Visit Charges Inpatient E&M: 18033 Init Hosp L3
[2024-03-18] MEDS: 0.9% Normal Saline (500mL Bag) 500 ML 999 ML IV (08:18)
[2024-03-18 09:05] LABS: Bacteria 0 SEEN /hpf (None Seen); Mucous, Urine 0 SEEN /hpf (<or=2+)
[2024-03-18 09:17] LABS: Color, Urine Yellow (Yellow); Glucose, Dipstick Normal (Normal); Ketone-Dipstick Negative (Negative); Leukocyte Esterase-Dipstick 25 /ul (Negative); Nitrite-Dipstick Negative (Negative); Occult Blood-Urine 10 /ul (Negative); Protein-Dipstick 30 mg/dl (Negative); Urine Bilirubin Dipstick Negative (Negative); Urine Clarity Clear (Clear); Urine Urobilinogen Normal (Normal)
[2024-03-18 09:28] LABS: Red Blood Cells-Urine 0-5 SEEN /hpf (0-5); Squamous Epithelial Cells - UA 0-5 SEEN /hpf (5-10); White Blood Cells 0-5 SEEN /hpf (0-5)
--- NOTE | 2024-03-18 11:40 | CASEMGMT ---
RN CM Face to Face with patient for initial transition planning/care coordination assessment. RN CM introduced self and role at [facility]. Patient lying in bed, alert and oriented. Patient willing to participate in assessment and is able to answer all questions appropriately. Care providers, pharmacy, and demographics verified. PCP: Elio Specialists: RA No; MANJU, school based therapist; Preferred Pharmacy: [facility], [place] Insurance: [employer] Prescription Benefit: yes Living Will/HPOA: yes, daughter Julia Leahy LNOK: daughter, son Living Arrangements: Patient lives alone in a bi-level home with 5 steps and railing. Patient states she is independent and able to ambulate stairs. Transportation: self, daughter DME/HHC: Patient has shower chair, BSC, rasied toilet, cane, walker, cpap, pulse ox at home. No previous HHC or SNF Patient wishes to discharge home, denies need for home health at this time. Patient states she has no further needs or concerns at this time. CM to follow for discharge planning needs that may arise. Disposition Plan: Patient to discharge home with family support and follow-up plans in place. Micaela MCALLISTER, RN, CM
[2024-03-18] MEDS: Ceftriaxone 1 GM/50 ML BAG IV (11:51)
--- NOTE | 2024-03-18 14:46 | PCM.PN.BLA ---
Progress Note Patient's Gastrografin small bowel follow-through is not made to the colon in 6 hours. Patient did have a small amount of flatus. Still tolerating NG clamping. Patient's UA was negative. Patient's pain has been controlled. Patient was agreeable with continuing conservative management with the small bowel follow-through.
[2024-03-18] MEDS: 0.9% Normal Saline (250mL Bag) 250 ML 999 ML IV (15:34)
--- NOTE | 2024-03-18 17:12 | PN.HOSP_ITS ---
Reason for Visit Reason for Visit: Diagnoses Elevated white blood cell count, unspecified (03/17/24) Unspecified intestinal obstruction, unspecified as to partial versus complete obstruction (03/17/24) Subjective Subjective Still having abdominal pain and feeling generally unwell Objective Data Objective Data Vital Signs: Vital Signs Temp Pulse Resp BP Pulse Ox O2 Del Method FiO2 97.6 F L 80 16 139/69 H 96 Room Air 96 03/18/24 14:00 03/18/24 14:00 03/18/24 14:00 03/18/24 14:00 03/18/24 14:00 03/18/24 14:00 03/18/24 12:14 Oxygen Delivery Method Room Air Weight: 96 kg Body Mass Index (BMI) 34.1 Intake & Output: Intake and Output for Last 24 Hours 03/16/24 03/17/24 03/18/24 23:59 23:59 23:59 Intake Total 2111.67 / 2111.67 Output Total 150 / 150 Balance 1961.67 / 1961.67 Lab / Micro Data 03/18/24 05:28 03/18/24 05:28 Labs: Laboratory Results - last 24 hr 03/17/24 21:47: WBC 12.6 H, RBC 4.66, Hgb 13.6, Hct 41.5, MCV 89.1, MCH 29.2, MCHC 32.8, RDW Std Deviation 45.3 H, RDW Coeff of Unique 14.0, Plt Count 294, MPV 9.5, Immature Gran % (Auto) 0.400, Neut % (Auto) 71.4 H, Lymph % (Auto) 19.6, [place] % (Auto) 5.4, Eos % (Auto) 3.0, Baso % (Auto) 0.2, Absolute Neuts (auto) 9.0 H, Absolute Lymphs (auto) 2.47, Nucleated RBC % 0, Sodium 138, Potassium 3.6, Chloride 103, Carbon Dioxide 28.0, Anion Gap 7, BUN 26 H, Creatinine 1.08 H , Estim Creat Clear Calc 48.68, Est GFR (MDRD) Af Amer 63, Est GFR (MDRD) Non-Af 52 L, BUN/Creatinine Ratio 24.1 H, Glucose 113 H, Lactic Acid 0.8, Calcium 9.4, Total Bilirubin 0.70, AST 19, ALT 20, Alkaline Phosphatase 95, Troponin I High Sens 16, Total Protein 7.5, Albumin 3.7, Globulin 3.8, Albumin/Globulin Ratio 1.0, Lipase 22 03/18/24 05:28: WBC 15.9 H, RBC 5.09, Hgb 15.0, Hct 46.2, MCV 90.8, MCH 29.5, MCHC 32.5, RDW Std Deviation 47.2 H, RDW Coeff of Unique 14.1, Plt Count 297, MPV 9.2, Immature Gran % (Auto) 0.300, Neut % (Auto) 89.2 H, Lymph % (Auto) 3.5 L, [place] % (Auto) 5.7, Eos % (Auto) 0.7, Baso % (Auto) 0.6, Absolute Neuts (auto) 14.2 H, Absolute Lymphs (auto) 0.55 L, Nucleated RBC % 0, Sodium 137, Potassium 3.9, Chloride 105, Carbon Dioxide 24.0, Anion Gap 8, BUN 25 H, Creatinine 1.17 H , Estim Creat Clear Calc 44.79, Est GFR (MDRD) Af Amer 57 L, Est GFR (MDRD) Non- Af 47 L, BUN/Creatinine Ratio 21.4 H, Glucose 154 H, Calcium 9.3, Total Bilirubin 0.70, AST 23, ALT 17, Alkaline Phosphatase 87, Total Protein 7.4, Albumin 3.6, Globulin 3.8, Albumin/Globulin Ratio 0.9 03/18/24 08:58: Urine Color Yellow, Urine Clarity Clear, Urine pH 5.0, Ur Specific [place] 1.020, Urine Protein 30 H, Urine Glucose (UA) Normal, Urine Ketones Negative, Urine Occult Blood 10 H, Urine Nitrite Negative, Urine Bilirubin Negative, Urine Urobilinogen Normal, Ur Leukocyte Esterase 25 H, Urine RBC 0-5 SEEN, Urine WBC 0-5 SEEN, Ur Squamous Epith Cells 0-5 SEEN, Urine Bacteria 0 SEEN, Urine Mucus 0 SEEN Radiography Diagnostic Testing: Radiology Impression Abdomen/Pelvis CT 03/17/24 21:40 IMPRESSION: Small bowel obstruction with transition in the lower abdomen. Overall appearance similar to prior study. Electronically Signed: Neal Johns MD at 23:48 EDT , ADDENDUM: 03/18/24 0003 IMPRESSION: Small bowel obstruction with transition in the lower abdomen. Overall appearance similar to prior study. N.B. : The above Results were Read Back by Neal Johns MD to Nan Morales DO, and understanding confirmed on 03/17/2024 23:56:17 (ET). Electronically Signed: Neal Johns MD at 23:48 EDT , KUB X-Ray 03/18/24 00:02 IMPRESSION: Enteric tube tip overlies left mid abdomen, likely mid stomach. Electronically Signed: Leandro Bryant MD at 2:50 EDT , KUB X-Ray 03/18/24 05:55 IMPRESSION: Enteric tube tip overlies left mid abdomen, likely mid stomach. Electronically Signed: Leandro Bryant MD at 6:27 EDT , Physical Exam Narrative General: Alert, oriented, appears uncomfortable HEENT: Atraumatic, normocephalic Eyes: Anicteric, normal conjunctiva, extraocular movements grossly intact Neck: Supple Respiratory: Clear to auscultation bilaterally, normal respiratory effort Cardiovascular: Regular rate and rhythm GI: Tender diffusely without rebound, guarding, rigidity Extremities: No edema Musculoskeletal: Moving all extremities Neuro: No overt focal neurological deficits Skin: No rashes appreciated Psych: Cooperative Assessment & Plan Assessment/Plan (1) Small bowel obstruction: PLAN: Plan # Small bowel obstruction -NG tube placed, n.p.o. -Surgery on board -Currently undergoing small bowel follow-through -Continue supportive care monitoring -There was query if patient could have had a UTI contributing however UA normal, will DC antibiotics #Leukocytosis -UA negative -No other localizing s/s suggestive of infxn -d/c abd -suspect this is d/t stress response # RA -Temporarily holding Plaquenil and methotrexate regimen, can resume once patient tolerating p.o. #History of colon cancer -Status post partial colectomy 2001, considered in remission, encourage continued outpatient follow-up. #HTN -Will temporally hold patient home amlodipine, as needed IV hydralazine in interim #Anxiety and depression -temporarily hold patient home fluoxetine, resume once oral intake appropriate #REY -Given presentation we will temporally hold CPAP, may use supplemental oxygen as needed. #GERD -Continue PPI #DVT ppx: Lovenox subcu Dina Da Silva MD Time spent in the patient's overall evaluation,decision-making process, review of diagnostic data, adjustment of management, discussion with other providers, nursing nursing and ancillary staff involved in patient's care documentation, 36 minutes Charges/Coding Visit Charges Inpatient E&M: 82191 Subs Hosp L2
[2024-03-19 02:00] VITALS: BP 134/45; PULSE 76; RESP 16; TEMP 36.5; O2SAT 95
[2024-03-19 04:10] LABS: Absolute Lymphocyte Count 1.83 X10^3/uL (0.83-4.51); Basophil# 0.02 X10^3/uL; Basophil% 0.3 % (0-1); Eosinophil# 0.31 X10^3/uL; Hematocrit 36.4 % (37-47); Hemoglobin 11.9 g/dL (12.0-15.0); Lymphocyte # 1.83 X10^3/ul (0.83-4.51); Lymphocyte % 23.4 % (19-41); Mean Corp Hgb Conc 32.7 g/dL (32-36); Mean Corpuscular Hgb 29.6 pg (27.0-32.0); Mean Corpuscular Volume 90.5 fL (81-99); Monocyte# 0.66 X10^3/uL; Monocyte% 8.5 % (0-10); NRBC Flagged by Analyzer 0 % (0-5); Neutrophil # 4.97 X10^3/uL (2.7-7.7); Neutrophil % 63.5 % (47-70); Platelet Count 242 K/mm3 (150-450); RBC Distribution Width CV 14.5 % (11.6-14.6); RBC Distribution Width SD 47.3 fl (35.1-43.9); Red Blood Count 4.02 M/mm3 (4.2-5.4); White Blood Count 7.8 K/mm3 (4.4-11.0)
[2024-03-19 04:37] LABS: Anion Gap 5 (5-15); BUN 23 mg/dL (7-18); BUN/Creat Ratio 23.4 RATIO (10-20); Calcium,Total 8.3 mg/dL (8.5-10.1); Chloride 112 mmol/L (98-107); Creatinine, Serum 0.98 mg/dL (0.55-1.02); EST Glomerular Filtration Rate 58 mL/min (>60); Est Glom Filt Rate - Afr Amer 70 mL/min (>60); Estimated Creatinine Clearance 53.47 ml/min; Glucose 92 mg/dL (74-106); Potassium 3.7 mmol/L (3.5-5.1); Sodium Level 143 mmol/L (136-145)
[2024-03-19 05:26] VITALS: BMI 34.8
[2024-03-19 08:00] VITALS: BP 133/54; BP 172/51; PULSE 72; RESP 16; TEMP 36.7; O2SAT 93
[2024-03-19 08:20] VITALS: BP 133/54
--- NOTE | 2024-03-19 08:23 | PCM.PN.SRG ---
Subjective Subjective Patient's a.m. KUB shows contrast all in the colon. Patient has had multiple bowel movements denies any nausea or vomiting or abdominal pain. Objective Data Objective Data Vital Signs: Vital Signs Temp Pulse Resp BP Pulse Ox O2 Del Method FiO2 98.0 F 72 16 133/54 H 93 Room Air 96 03/19/24 08:00 03/19/24 08:00 03/19/24 08:00 03/19/24 08:20 03/19/24 08:00 03/19/24 08:00 03/18/24 12:14 Oxygen Delivery Method Room Air Weight: 216 lb 0.848 oz Body Mass Index (BMI) 34.8 Intake & Output: Intake and Output for Last 24 Hours 03/17/24 03/18/24 03/19/24 23:59 23:59 23:59 Intake Total 3221.67 / 3221.67 0 / 0 Output Total 150 / 150 Balance 3071.67 / 3071.67 0 / 0 Lab / Micro Data 03/19/24 04:00 03/19/24 04:00 Labs: Laboratory Results - last 24 hr 03/18/24 08:58: Urine Color Yellow, Urine Clarity Clear, Urine pH 5.0, Ur Specific [place] 1.020, Urine Protein 30 H, Urine Glucose (UA) Normal, Urine Ketones Negative, Urine Occult Blood 10 H, Urine Nitrite Negative, Urine Bilirubin Negative, Urine Urobilinogen Normal, Ur Leukocyte Esterase 25 H, Urine RBC 0-5 SEEN, Urine WBC 0-5 SEEN, Ur Squamous Epith Cells 0-5 SEEN, Urine Bacteria 0 SEEN, Urine Mucus 0 SEEN 03/19/24 04:00: WBC 7.8, RBC 4.02 L, Hgb 11.9 L, Hct 36.4 L, MCV 90.5, MCH 29.6, MCHC 32.7, RDW Std Deviation 47.3 H, RDW Coeff of Unique 14.5, Plt Count 242, MPV 9.0, Immature Gran % (Auto) 0.300, Neut % (Auto) 63.5, Lymph % (Auto) 23.4, [place] % (Auto) 8.5, Eos % (Auto) 4.0, Baso % (Auto) 0.3, Absolute Neuts (auto) 5.0, Absolute Lymphs (auto) 1.83, Nucleated RBC % 0, Sodium 143, Potassium 3.7, Chloride 112 H, Carbon Dioxide 26.0, Anion Gap 5, BUN 23 H, Creatinine 0.98, Estim Creat Clear Calc 53.47, Est GFR (MDRD) Af Amer 70, Est GFR (MDRD) Non-Af 58 L, BUN/Creatinine Ratio 23.4 H, Glucose 92, Calcium 8.3 L Physical Exam Const oriented x3 and no apparent distress Resp normal respiratory effort Cardio regular rate GI soft to palpation and non-tender Inspection: Negative for abdominal distention Assessment & Plan Assessment/Plan (1) Small bowel obstruction: (2) Leukocytosis: PLAN: Plan Patient's KUB shows contrast in the colon patient had multiple bowel movements. DC NG-will advance to clears. Patient tolerates will advance to full's and may DC home today on liquids initially. Leukocytosis?resolved Noris Pan M.D. Pager: [phone] [facility] [address] [place] [address], Outpatient [place], [address] [place] [id number] Office: [phone] Charges/Coding Visit Charges Inpatient E&M: 50015 Subs Hosp L2
[2024-03-19] MEDS: Pantoprazole Sodium 40 MG in 0.9% Normal Saline (100mL MB+) 100 ML 330 MG IV (10:06)
--- NOTE | 2024-03-19 14:11 | DCINST_ITS ---
Discharge Instructions Diet Discharge Diet: - (Start with full liquid diet and advance to low fiber diet as tolerated) Activity Discharge Activity: - (Increase activity as tolerated) Follow Up Care Test Results: Test results from this visit will be discussed in further detail at your follow- up appointment, if applicable. Discharge Plan Admission Admit Date/Time: 03/17/24 23:55 Primary Reason for Your Visit: Small bowel obstruction Attending Provider: Dina Da Silva Primary Care Provider: Jesus Ballard Consulting Providers: Noris Pan; Winsome [place] Instructions Patient Instructions: Low-Fiber Diet Additional Instructions / Restrictions: DISCHARGE INSTRUCTIONS PLEASE READ *Please take this with you to your next doctors appointment* -Please start with a full liquid diet and advance to low fiber diet as tolerated -You can follow-up in Dr. Pan's office as needed -Would recommend lab work (CBC) to check your hemoglobin (blood counts) in 2 to 3 days through your primary care physician's office. Please call their office upon discharge to obtain order for lab work. -Please call your primary care provider's office upon discharge to schedule a hospital follow up within 1 week. -For any concerning signs or symptoms please call 911 or proceed to the nearest emergency department Discharge Orders/Prescriptions Prescriptions: Continued amlodipine 5 mg tablet 5 mg PO QHS acetaminophen 500 mg tablet 500 mg PO Q6H PRN (Reason: Pain) folic acid 1 MG tablet 2 tab PO DAILY Patient Comments: supplement fluoxetine 10 MG capsule 10 mg PO DAILY Patient Comments: depression methotrexate sodium 2.5 mg tablet 15 mg PO DA SILVA cholecalciferol (vitamin D3) 2,000 UNIT capsule 1,000 unit PO DAILY aspirin 81 MG tablet,delayed release (DR/EC) 81 mg PO DAILY hydroxychloroquine 200 mg tablet 200 mg PO BID ascorbic acid (vitamin C) 500 MG capsule 500 mg PO DAILY atorvastatin 10 MG tablet 10 mg PO QHS Held potassium chloride 20 mEq tablet,ER particles/crystals 20 meq PO BIDCM Qty: 180 3RF Hold Instructions: Resume on 03/21/24. furosemide 40 mg tablet 40 mg PO DAILY Qty: 90 3RF Hold Instructions: Resume on 03/21/24. Referrals / Follow Up: Noris Pan MD [Med Staff - Active Staff] - (Follow in the office as needed) Jesus Ballard MD [Primary Care Provider] - Within 1 Week Disposition Disposition (needs filled in before D/C Order can be placed): Home, Self Care
--- NOTE | 2024-03-19 14:18 | DS.PCM_ITS ---
Providers Date of Admission: 03/17/24 Date of Discharge: 03/19/24 Primary Care Physician: Dr. Jesus Ballard MD Consultations 03/18/24 02:35 Consult: General Surgery Routine Consulting Provider: Noris Pan Reason for Consult: SBO EMERGENT Consult: No MD Notified: Yes Date Notified: 03/17/24 Time Notified: 23:56 Method of Notification: ED Physician Initiated Reason For Visit: SBO Diagnosis Discharge Diagnosis (1) Small bowel obstruction: Status: Acute Code(s): K56.609 - Unspecified intestinal obstruction, unspecified as to partial versus complete obstruction (2) Leukocytosis: Status: Acute Code(s): D72.829 - Elevated white blood cell count, unspecified Plan # Small bowel obstruction- managed non surgically, resolved #Leukocytosis 2/2 stress response, resolved # RA #History of colon cancer #HTN #Anxiety and depression #REY #GERD Medications at Discharge Home Medications folic acid 1 mg tablet 2 tab PO DAILY SUPPLEMENT 10/20/15 fluoxetine 10 mg capsule 10 mg PO DAILY DEPRESSION 10/21/15 cholecalciferol (vitamin D3) 50 mcg (2,000 unit) capsule 1,000 unit PO DAILY SUPPLEMENT 12/25/17 aspirin 81 mg tablet,delayed release 81 mg PO DAILY heart health 12/24/19 ascorbic acid (vitamin C) 500 mg capsule 500 mg PO DAILY Supplement 03/12/20 atorvastatin 10 mg tablet 10 mg PO QHS cholesterol 11/28/20 acetaminophen 500 mg tablet 500 mg PO Q6H PRN Pain 01/11/21 amlodipine 5 mg tablet 5 mg PO QHS blood pressure 01/11/21 methotrexate sodium 2.5 mg tablet 15 mg PO DA SILVA RHEUMATOID 01/11/21 hydroxychloroquine 200 mg tablet 200 mg PO BID inflammation 04/13/21 furosemide 40 mg tablet 40 mg PO DAILY water pill #90 tabs 07/05/21 potassium chloride 20 mEq tablet,extended release(part/cryst) 20 meq PO BIDCM supplement #180 tabs 07/05/21 Hospital Course Procedures - (NG tube placement) Summary of Care Provided Minutes Spent on Discharge: 25 Hospital Course: The patient is an 78 y/o F w/ PMHx: Former tobacco use, Anxiety and Depression, CKD stage III unclear subtype, GERD, PMR, Rheumatoid arthritis, Hx Colon CA, REY on CPAP, HLD, HTN, Hx several prior SBO resolved conservatively per her report who presents to the [facility] ED on 03/17/24 with history of onset of abdominal discomfort, distention, lack of flatus, nausea without emesis. She was found to have a small bowel obstruction and was made n.p.o., NG tube placed, IV fluids and surgery on board. Patient underwent small bowel series and prolonged series showed contrast in the colon and patient was able to have multiple bowel movements, NG DC'd and patient tolerated clears and subsequently fulls. Discussed with surgery and patient okay to discharge home to advance diet as tolerated. There is initially query of UTI as patient said she had been urinating frequently and she had an elevated white count so she was started on antibiotics however UA was negative so these were discontinued. Suspect leukocytosis was a stress response. On day of discharge patient feeling much better, discharged home in stable condition with the following discharge instructions: -Please start with a full liquid diet and advance to low fiber diet as tolerated -You can follow-up in Dr. Pan's office as needed -Would recommend lab work (CBC) to check your hemoglobin (blood counts) in 2 to 3 days through your primary care physician's office. Please call their office upon discharge to obtain order for lab work. -Please call your primary care provider's office upon discharge to schedule a hospital follow up within 1 week. -For any concerning signs or symptoms please call 911 or proceed to the nearest emergency department Physical Exam Narrative General: Alert, oriented, no apparent distress HEENT: Atraumatic, normocephalic Eyes: Anicteric, normal conjunctiva, extraocular movements grossly intact Neck: Supple Respiratory: Clear to auscultation bilaterally, normal respiratory effort Cardiovascular: Regular rate GI: Soft, nontender, nondistended Extremities: No edema Musculoskeletal: Moving all extremities Neuro: No overt focal neurological deficits Skin: No rashes appreciated Psych: Cooperative Weight / BMI Weight Weight: 98 kg Body Mass Index (BMI) 34.8 ABG / Lab / Microbiology Data 03/19/24 04:00 03/19/24 04:00 Laboratory: Laboratory Results - last 24 hr 03/19/24 04:00: WBC 7.8, RBC 4.02 L, Hgb 11.9 L, Hct 36.4 L, MCV 90.5, MCH 29.6, MCHC 32.7, RDW Std Deviation 47.3 H, RDW Coeff of Unique 14.5, Plt Count 242, MPV 9.0, Immature Gran % (Auto) 0.300, Neut % (Auto) 63.5, Lymph % (Auto) 23.4, [place] % (Auto) 8.5, Eos % (Auto) 4.0, Baso % (Auto) 0.3, Absolute Neuts (auto) 5.0, Absolute Lymphs (auto) 1.83, Nucleated RBC % 0, Sodium 143, Potassium 3.7, C hloride 112 H, Carbon Dioxide 26.0, Anion Gap 5, BUN 23 H, Creatinine 0.98, Estim Creat Clear Calc 53.47, Est GFR (MDRD) Af Amer 70, Est GFR (MDRD) Non-Af 58 L, BUN/Creatinine Ratio 23.4 H, Glucose 92, Calcium 8.3 L Radiography Diagnostic Testing: Radiology Impression Small Bowel X-Ray 03/18/24 06:20 IMPRESSION: Dilatation of small bowel at the beginning of the study. At 22 hours, contrast in colon. No acute finding. Electronically Signed: Cuong Maza MD at 9:39 EDT Reading Location ID and State: [address] [place] [address] , Service support , D/C Instructions Discharge Diet: - (Start with full liquid diet and advance to low fiber diet as tolerated) Meaningful Use Info Meaningful Use Meaningful Use Diagnoses (Choose all that apply): None applicable Ischemic Stroke Statin Dosing Therapy Reference: STATIN DOSE THERAPY REFERENCE: * Patients > 75 years receive moderate or high dose statin therapy. * Patients 75 years or YOUNGER should receive HIGH intensity statin dose unless contraindicated. You will be required to document reason for non-treatment if statin daily dose does not meet guidelines. HIGH DOSE STATIN THERAPY DAILY Atorvastatin > than or = to 40 mg Rosuvastatin > than or = to 20 mg Amlodipine + Atorvastatin > than or = to 2.5/40 mg Ezetimibe + Simvastatin 10/80 mg Simvastatin 80mg Discharge Plan Admission Admit Date/Time: 03/17/24 23:55 Primary Reason for Your Visit: Small bowel obstruction Attending Provider: Dina Da Silva Primary Care Provider: Jesus Ballard Consulting Providers: Noris Pan; Winsome Dallas Instructions Patient Instructions: Low-Fiber Diet Additional Instructions / Restrictions: DISCHARGE INSTRUCTIONS PLEASE READ *Please take this with you to your next doctors appointment* -Please start with a full liquid diet and advance to low fiber diet as tolerated -You can follow-up in Dr. Pan's office as needed -Would recommend lab work (CBC) to check your hemoglobin (blood counts) in 2 to 3 days through your primary care physician's office. Please call their office upon discharge to obtain order for lab work. -Please call your primary care provider's office upon discharge to schedule a hospital follow up within 1 week. -For any concerning signs or symptoms please call 911 or proceed to the nearest emergency department Discharge Orders/Prescriptions Prescriptions: Continued amlodipine 5 mg tablet 5 mg PO QHS acetaminophen 500 mg tablet 500 mg PO Q6H PRN (Reason: Pain) folic acid 1 MG tablet 2 tab PO DAILY Patient Comments: supplement fluoxetine 10 MG capsule 10 mg PO DAILY Patient Comments: depression methotrexate sodium 2.5 mg tablet 15 mg PO DA SILVA cholecalciferol (vitamin D3) 2,000 UNIT capsule 1,000 unit PO DAILY aspirin 81 MG tablet,delayed release (DR/EC) 81 mg PO DAILY hydroxychloroquine 200 mg tablet 200 mg PO BID ascorbic acid (vitamin C) 500 MG capsule 500 mg PO DAILY atorvastatin 10 MG tablet 10 mg PO QHS Held potassium chloride 20 mEq tablet,ER particles/crystals 20 meq PO BIDCM Qty: 180 3RF Hold Instructions: Resume on 03/21/24. furosemide 40 mg tablet 40 mg PO DAILY Qty: 90 3RF Hold Instructions: Resume on 03/21/24. Referrals / Follow Up: Noris Pan MD [Med Staff - Active Staff] - (Follow in the office as needed) Jesus Ballard MD [Primary Care Provider] - Within 1 Week Disposition Disposition (needs filled in before D/C Order can be placed): Home, Self Care Charges/Coding Visit Charges Inpatient E&M: 93203 Disch Hosp
--- NOTE | 2024-03-19 14:29 | CASEMGMT ---
Patient has order for discharge. RN CM in to discuss needs at discharge. Patient denies needs or help at discharge. Patient states daughter will be staying with her. Patient had no further questions or concerns.
[2024-03-19 14:31] VITALS: BP 172/51; PULSE 72; RESP 18; TEMP 36.7; O2SAT 93
== END 2024-03-19 14:59 | disposition home or self-care (01) | DRG 390 ==
LOC: ED 23:47 → PCU 03-18 03:54
PROVIDERS: Surgery; Admitting Provider Family Medicine; Emergency Provider Emergency Medicine; PCP Internal Medicine; Visit Provider Internal Medicine
DX: K56.609 Unspecified intestinal obstruction, unspecified as to partial versus complete obstruction (principal); E78.2 Mixed hyperlipidemia; N18.30 Chronic kidney disease, stage 3 unspecified; M06.9 Rheumatoid arthritis, unspecified; F32.A Depression, unspecified; I12.9 Hypertensive chronic kidney disease with stage 1 through stage 4 chronic kidney disease, or unspecified chronic kidney disease; I44.7 Left bundle-branch block, unspecified; K21.9 Gastro-esophageal reflux disease without esophagitis; G47.33 Obstructive sleep apnea (adult) (pediatric); F41.9 Anxiety disorder, unspecified; Z87.891 Personal history of nicotine dependence; Z79.82 Long term (current) use of aspirin; Z85.038 Personal history of other malignant neoplasm of large intestine
CPT/HCPCS: 36415; 74018; 74177; 74250; 80048; 80053; 81001; 83605; 83690; 84484; 85025; 87086; 87088; 93005; 97162; 99284; J7030; J7040; J7050; Q9967; A4216; J2405

== ENCOUNTER → 2024-06-04 | Outpatient (CLI) | payer MEDICARE, BC, SELFPAY ==
[2024-06-04 09:41] LABS: Absolute Lymphocyte Count 1.58 X10^3/uL (0.83-4.51); Absolute Neutrophil Count 3.5 X10^3/uL (2.0-7.7); Basophil# 0.06 X10^3/uL; Eosinophil# 0.39 X10^3/uL; Eosinophils% 6.6 % (0-5); Hematocrit 38.1 % (37-47); Hemoglobin 12.4 g/dL (12.0-15.0); Lymphocyte # 1.58 X10^3/ul (0.83-4.51); Lymphocyte % 26.6 % (19-41); Mean Corp Hgb Conc 32.5 g/dL (32-36); Mean Corpuscular Hgb 29.8 pg (27.0-32.0); Mean Corpuscular Volume 91.6 fL (81-99); Mean Platelet Vol. 9.1 fl (6.2-12.0); Monocyte# 0.45 X10^3/uL; Monocyte% 7.6 % (0-10); NRBC Flagged by Analyzer 0 % (0-5); Neutrophil # 3.45 X10^3/uL (2.7-7.7); Neutrophil % 57.9 % (47-70); Platelet Count 284 K/mm3 (150-450); RBC Distribution Width CV 14.6 % (11.6-14.6); RBC Distribution Width SD 48.9 fl (35.1-43.9); Red Blood Count 4.16 M/mm3 (4.2-5.4)
[2024-06-04 10:05] LABS: ALB/GLOB Ratio 0.9 RATIO (0.9-2.4); AST(SGOT) 21 U/L (15-37); Alanine Aminotransfer ALT/SGPT 15 U/L (13-56); Albumin, Serum 3.2 g/dL (3.2-5.0); Alkaline Phosphatase 104 U/L (45-117); Anion Gap 6 (5-15); BUN 14 mg/dL (7-18); BUN/Creat Ratio 13.5 RATIO (10-20); Calcium,Total 9.3 mg/dL (8.5-10.1); Chloride 109 mmol/L (98-107); Creatinine, Serum 1.04 mg/dL (0.55-1.02); EST Glomerular Filtration Rate 54 mL/min (>60); Est Glom Filt Rate - Afr Amer 65 mL/min (>60); Globulin 3.7 g/dL (2.2-4.2); Glucose 86 mg/dL (74-106); Protein, Total 6.9 g/dL (6.4-8.2); Sodium Level 142 mmol/L (136-145)
== END | disposition home or self-care (01) ==
LOC: LAB 09:19
PROVIDERS: PCP Internal Medicine; Referring Provider Internal Medicine Rheumatology; Visit Provider Internal Medicine Rheumatology
DX: M06.00 Rheumatoid arthritis without rheumatoid factor, unspecified site (principal); Z79.899 Other long term (current) drug therapy; M65.352 Trigger finger, left little finger; M18.0 Bilateral primary osteoarthritis of first carpometacarpal joints; M17.0 Bilateral primary osteoarthritis of knee
CPT/HCPCS: 36415; 80053; 85025

== ENCOUNTER 2024-08-12 00:11 | Inpatient (IN) | payer MEDICARE, BC, SELFPAY ==
[2024-08-12] VITALS (15 sets, daily range): BP systolic 91–170; BP diastolic 47–99; PULSE 74–97; RESP 15–20; TEMP 36.3–37.1; O2SAT 94–100; BMI 34.6; BMI 35.6
--- NOTE | 2024-08-12 00:31 | CT_ITS ---
STUDY: CT ABDOMEN AND PELVIS WITH CONTRAST - URINARY TRACT REASON FOR EXAM: Female, 79 years old. ?SBO RADIATION DOSAGE (If Supplied By Facility): CTDIvol = ( 23.81 ) mGy, DLP = ( 1583.75 ) mGycm TECHNIQUE: IV 100mL Isovue-370 was administered. Transaxial images were obtained from the dome of the diaphragm to the symphysis pubis in the arterial, nephrographic and excretory phases. Multiplanar coronal and sagittal images were reformatted. The protocol utilizes one or more of the following dose reduction techniques: automated exposure control, adjustment of mA and/or kV according to patient size,and/or use of iterative reconstruction technique. COMPARISON: CT Abdomen/PelvisJun 2023 11:00pm FINDINGS: LOWER CHEST: Lung bases are clear. No cardiomegaly or pericardial effusion. LIVER: Homogeneous. No focal mass. GALLBLADDER AND BILIARY TREE: No calcified gallstones. No gallbladder distension or wall edema. No intra- or extrahepatic biliary ductal dilation. PANCREAS: No focal cystic or solid mass. SPLEEN: Normal size without focal cystic or solid mass. ADRENAL GLANDS: No nodules. KIDNEYS AND URETERS: Normal renal size and position. No hydronephrosis. PERITONEUM: No free air. Trace pelvic ascites. BOWEL: Normal appendix. Multiple distended small bowel loops with transition in the distal ileum consistent with bowel obstruction. No abnormal colonic distention. Colorectal anastomosis. LYMPH NODES: No enlarged mesenteric or retroperitoneal lymph nodes. VESSELS: Aorta is non-dilated. URINARY BLADDER: Unremarkable. REPRODUCTIVE ORGANS: No pelvic masses. ABDOMINAL WALL: Prior ventral hernia repair. BONES: Right hip replacement. No acute or aggressive abnormality. CT/Abdomen/Pelvis W IV Cont ONLY IMPRESSION: Small bowel obstruction the distal ileum. Electronically Signed: Jina Smith MD at 3:56 EST ,
[2024-08-12] MEDS: 0.9% Normal Saline (1000mL) 1,000 ML 999 ML IV (00:41)
[2024-08-12] MEDS: Ondansetron 4 MG/2 ML Vial IV ×3 (00:42→11:19)
[2024-08-12] MEDS: Morphine 4 MG/ML Syringe IV (00:43)
[2024-08-12 00:54] LABS: Absolute Lymphocyte Count 2.82 X10^3/uL (0.83-4.51); Absolute Neutrophil Count 2.7 X10^3/uL (2.0-7.7); Basophil# 0.01 X10^3/uL; Basophil% 0.2 % (0-1); Eosinophil# 0.03 X10^3/uL; Eosinophils% 0.5 % (0-5); Hematocrit 41.8 % (37-47); Hemoglobin 14.2 g/dL (12.0-15.0); Lymphocyte # 2.82 X10^3/ul (0.83-4.51); Lymphocyte % 49.6 % (19-41); Mean Corpuscular Hgb 30.7 pg (27.0-32.0); Mean Corpuscular Volume 90.3 fL (81-99); Mean Platelet Vol. 9.6 fl (6.2-12.0); Monocyte# 0.11 X10^3/uL; Monocyte% 1.9 % (0-10); NRBC Flagged by Analyzer 0 % (0-5); Neutrophil # 2.71 X10^3/uL (2.7-7.7); Neutrophil % 47.6 % (47-70); Platelet Count 276 K/mm3 (150-450); RBC Distribution Width CV 13.5 % (11.6-14.6); RBC Distribution Width SD 44.5 fl (35.1-43.9); Red Blood Count 4.63 M/mm3 (4.2-5.4); White Blood Count 5.7 K/mm3 (4.4-11.0)
[2024-08-12 01:12] LABS: AST(SGOT) 24 U/L (15-37); Alanine Aminotransfer ALT/SGPT 18 U/L (13-56); Albumin, Serum 3.8 g/dL (3.2-5.0); Alkaline Phosphatase 95 U/L (45-117); Anion Gap 8 (5-15); BUN 23 mg/dL (7-18); BUN/Creat Ratio 20.2 RATIO (10-20); Bilirubin, Direct 0.23 mg/dL (0.00-0.30); Calcium,Total 9.4 mg/dL (8.5-10.1); Chloride 105 mmol/L (98-107); Creatinine, Serum 1.14 mg/dL (0.55-1.02); EST Glomerular Filtration Rate 49 mL/min (>60); Est Glom Filt Rate - Afr Amer 59 mL/min (>60); Estimated Creatinine Clearance 45.52 ml/min; Globulin 3.5 g/dL (2.2-4.2); Glucose 146 mg/dL (74-106); Lipase 19 U/L (13-75); Potassium 3.6 mmol/L (3.5-5.1); Protein, Total 7.3 g/dL (6.4-8.2); Sodium Level 139 mmol/L (136-145)
[2024-08-12] MEDS: HYDROmorphone 0.5 MG/0.5 ML SYRINGE IV ×2 (01:26→04:00)
[2024-08-12 01:39] LABS: Lactic Acid 1.3 mmol/L (0.4-1.9)
[2024-08-12] MEDS: Oxymetazoline 0.05% 1 SPRAY SPRAY.BTL 2 SPRAY NASAL (04:19)
--- NOTE | 2024-08-12 04:34 | HP.PCM.HOS_ITS ---
[facility] - General General Date of Admission: 08/12/24 Date of Service: 08/12/24 Chief Complaint: Abdominal Pain with nausea and Vomiting. HPI Narrative FABIO PORTILLO, is a 79 F with a past medical history of essential hypertension; on daily amlodipine and Lasix every other day, hyperlipidemia; on atorvastatin, obesity; with BMI of 34.6 this admission, REY; on CPAP, RA; on methotrexate and hydroxychloroquine, history of polymyalgia rheumatica; on chronic prednisone 1 mg daily, CKD; stage IIIa, former history of tobacco abuse, listed allergy to PCN (rash), listed allergy to azithromycin (nausea, vomiting and diarrhea), listed allergy to sulfonamide antibiotics (rash), listed allergy to HCTZ (rash), listed allergy to lisinopril (?), listed allergy to NTG (?), listed allergy to codeine (?), depression with anxiety; on fluoxetine, GERD; on omeprazole, history of CTS, osteoarthritis; with history of hip replacement and history of colon cancer; with subsequent colectomy (~2001) currently in remission, history of appendectomy, history of hernia repair; with previous extensive mesh placement causing extensive scar tissue and bowel dysfunction, history of colonoscopy (~2015), remote history of , history of wrist fracture, history of DNR-CCA with no intubation CODE STATUS and history of recurrent SBO with previous mesh placement with relatively recent admission here from March 17, 2024 to March 19, 2024 for SBO which was treated conservatively with NGT to LIWS and IV fluids with patient eventually able to tolerate oral diet resulting in her being sent home who once again presents to [facility] ER complaining of abdominal pain with nausea and vomiting. Ms. Portillo reports her symptoms began approximately 2 hours prior to arrival with the abrupt onset of progressively worsening generalized abdominal pain followed by nausea and bilious emesis. She describes the pain as generalized, cramping [id number] and with nothing seeming to make the pain better or worse. She states her last normal BM was Friday and she had a loose nonbloody diarrheal bowel movement yesterday which she says is very unusual for her. There is no report of fever, chills, diarrhea, chest pain, SOB, headache or paresthesias but she does admit to increasing abdominal distention. She states her symptoms are very similar to her previous SBO's. When pressed patient admits she has not been chewing her food carefully and that she has been eating a lot of junk food over the last few weeks which she suspects may be playing a role in the development of her acute issues. In the ER she was noted to have a CT scan of the abdomen and pelvis that revealed evidence of Small Bowel Obstruction in the distal ileum complicated by clinical evidence of intractable nausea and vomiting with laboratory evidence of dehydration with a slightly elevated BUN/creatinine ratio of 20.2 present on admission with the ER physician and speaking to Dr. Patrick of general surgery who recommended admission to the hospitalist service with formal consultation from him pending in the a.m. and she was then admitted to the general medical floor for ongoing care for stay that is expected to extend beyond 2 midnights. [facility] Medical History Anxiety and depression Bowel obstruction Wrist fracture Carpal tunnel syndrome FH: total knee replacement Polymyalgia rheumatica GERD (gastroesophageal reflux disease) Mixed hyperlipidemia CKD (chronic kidney disease) stage 3, GFR 30-59 ml/min REY on CPAP Essential hypertension SBO (small bowel obstruction) Abnormal mammogram of left breast History of colon cancer Rheumatoid arthritis Home Medications ?Medication ?Instructions ?Recorded ?Last Taken ?Type folic acid 1 mg tablet 2 tab PO DAILY SUPPLEMENT 10/20/15 11/28/20 09:30 History 2 tab fluoxetine 10 mg capsule 10 mg PO DAILY DEPRESSION 10/21/15 11/28/20 09:30 History 10 mg cholecalciferol (vitamin D3) 50 1,000 unit PO DAILY SUPPLEMENT 12/25/17 11/28/20 09:30 History mcg (2,000 unit) capsule 1000 u aspirin 81 mg tablet,delayed 81 mg PO DAILY heart health 12/24/19 11/28/20 09:30 History release 81 mg ascorbic acid (vitamin C) 500 mg 500 mg PO DAILY Supplement 03/12/20 11/28/20 09:30 History capsule 500 mg atorvastatin 10 mg tablet 10 mg PO QHS cholesterol 11/28/20 11/28/20 09:30 History 10 mg acetaminophen 500 mg tablet 500 mg PO Q6H PRN Pain 01/11/21 Unknown History amlodipine 5 mg tablet 5 mg PO QHS blood pressure 01/11/21 Unknown History methotrexate sodium 2.5 mg tablet 17.5 mg PO DA SILVA RHEUMATOID 01/11/21 08/08/24 History hydroxychloroquine 200 mg tablet 200 mg PO BID inflammation 04/13/21 Unknown History potassium chloride 20 mEq 20 meq PO BIDCM supplement #180 07/05/21 Unknown Rx tablet,extended release(part/cryst) tabs furosemide 40 mg tablet 40 mg PO Q OTHER DAY water pill 06/04/24 Unknown Rx #90 tabs omeprazole 40 mg capsule,delayed 40 mg PO DAILY 08/12/24 Unknown History release Allergy/AdvReac Type Severity Reaction Status Date / Time Penicillins (PCN) Allergy Rash Verified 08/12/24 00:12 Sulfa (Sulfonamide Allergy Rash Verified 08/12/24 00:12 Antibiotics) lisinopril AdvReac Unknown unknown Verified 08/12/24 00:12 azithromycin (From Zithromax) AdvReac Nausea/Vom/ Verified 08/12/24 00:12 Diarrhea codeine AdvReac Other Verified 08/12/24 00:12 hydrochlorothiazide AdvReac Rash Verified 08/12/24 00:12 nitroglycerin (From AdvReac Other Verified 08/12/24 00:12 Nitroglyn) Family History Sister Diabetes Asthma Hypertension Leukemia Brother Heart disease Hypertension Diabetes Father Myocardial infarction CAD (coronary artery disease) Mother Cancer Liver Hypertension Acute arthritis Surgical History History of hip replacement History of appendectomy History of colonoscopy (~2015) History of hernia repair History of section History of colectomy (~2001) Social History household members: none Smoking Status: Former smoker alcohol intake: never substance use type: does not use caffeine: Yes Type: coffee Number of servings: 2 ROS ROS Narrative Review of Systems: Constitutional: Patient denies fever or chills. Eyes: Patient denies changes in vision or discharge from eyes. ENT: Patient denies runny nose, sore throat or ear pain. Resp: Patient denies shortness of breath cough. CV: Patient denies chest pain, palpitations or heart racing. GI: Patient admits to generalized cramping abdominal pain with distention along with intractable nausea and vomiting with bilious emesis as per HPI. : Patient denies dysuria or hematuria. MSK: Patient denies arthralgias or myalgias. Skin: Patient denies rash, abscess or jaundice. Psych: Patient denies symptoms of uncontrolled depression or anxiety. Neuro: Patient denies headache, paresthesias or focal neurologic deficits. Allergy: Patient denies lip swelling, tongue swelling or urticaria. Hematology: Patient denies easy bleeding or easy bruisability. Endocrinology: Patient denies polyuria, polydipsia or polyphagia. 14 point review of systems otherwise negative set for positives noted above in HPI. Vital Signs Vital Signs Vital Signs: 08/12/24 00:12 08/12/24 00:16 08/12/24 01:16 Temperature 97.4 F L 97.4 F L 97.4 F L Temperature Source Oral Oral Oral Pulse Rate 82 74 81 Respiratory Rate 18 18 18 Blood Pressure 170/66 H 170/66 H 131/99 H Blood Pressure Mean 100 100 109 Pulse Ox 97 97 100 Oxygen Delivery Method Room Air Room Air Room Air 08/12/24 02:11 08/12/24 04:00 Temperature Temperature Source Pulse Rate 78 83 Respiratory Rate 16 20 H Blood Pressure 147/61 H 154/71 H Blood Pressure Mean 89 98 Pulse Ox 98 96 Oxygen Delivery Method Room Air Room Air Weight Weight: 214 lb 8.156 oz Body Mass Index (BMI) 34.6 Physical Exam Const alert and oriented x3 Constitutional Narrative: Mild distress noted with patient nontoxic in appearance. General Appearance: cooperative HEENT normocephalic, head/scalp atraumatic and hearing grossly normal bilaterally HEENT Narrative: Mucous membranes dry. Eyes PERRL and EOMs intact bilaterally Neck no lymphadenopathy and supple Resp normal respiratory effort, no retractions, no use of accessory muscles and clear to auscultation bilaterally Cardio regular rate and regular rhythm GI GI Narrative: Patient was noted to have mildly distended abdomen with generalized tenderness to palpation and hyperactive bowel sounds. Auscultation: hyperactive bowel sounds Palpation: tender Extremity normal to inspection, full ROM and no clubbing, cyanosis or edema Skin Skin Narrative: Patient has no evidence of rash, abscess or jaundice. Neuro oriented x3, CN's II-XII intact bilaterally, moves all extremities and no focal motor deficits Sensorium / Orientation: awake, alert, oriented to person, oriented to place and oriented to time Speech: speech normal Psych affect normal Results Medical Records Data Attestation: I reviewed the patient's medical records Lab / Micro Data Attestation: I reviewed the patient's lab results. 08/12/24 00:22 08/12/24 00:22 Labs: Laboratory Results - last 24 hr 08/12/24 00:22: WBC 5.7, RBC 4.63, Hgb 14.2, Hct 41.8, MCV 90.3, MCH 30.7, MCHC 34.0, RDW Std Deviation 44.5 H, RDW Coeff of Unique 13.5, Plt Count 276, MPV 9.6, Immature Gran % (Auto) 0.200, Neut % (Auto) 47.6, Lymph % (Auto) 49.6 H, [place] % (Auto) 1.9, Eos % (Auto) 0.5, Baso % (Auto) 0.2, Absolute Neuts (auto) 2.7, Absolute Lymphs (auto) 2.82, Nucleated RBC % 0, Sodium 139, Potassium 3.6, Chloride 105, Carbon Dioxide 26.0, Anion Gap 8, BUN 23 H, Creatinine 1.14 H, Estim Creat Clear Calc 45.52, Est GFR (MDRD) Af Amer 59 L, Est GFR (MDRD) Non-Af 49 L, BUN/Creatinine Ratio 20.2 H, Glucose 146 H, Calcium 9.4, Total Bilirubin 0.70, Direct Bilirubin 0.23, AST 24, ALT 18, Alkaline Phosphatase 95, Total Protein 7.3, Albumin 3.8, Globulin 3.5, Lipase 19 08/12/24 00:44: Lactic Acid 1.3 Imaging Radiology Impression Abdomen/Pelvis CT 08/12/24 00:31 IMPRESSION: Small bowel obstruction the distal ileum. Electronically Signed: Jina Smith MD at 3:56 EST , Assessment & Plan Assessment/Plan (1) SBO (small bowel obstruction): (2) Intractable nausea and vomiting: (3) Dehydration: (4) CKD (chronic kidney disease) stage 3, GFR 30-59 ml/min: QUALIFIERS: Chronic kidney disease stage 3 subtype: stage 3a (GFR 45-59) Qualified Code(s): N18.31 - Chronic kidney disease, stage 3a (5) Obesity (BMI 30.0-34.9): (6) REY on CPAP: (7) History of colon cancer: (8) Hx SBO: (9) Essential hypertension: PLAN: Plan 1. CT scan of the abdomen and pelvis that revealed evidence of Small Bowel Obstruction in the distal ileum in the setting of numerous previous SBO's likely due to adhesions from multiple abdominal surgeries - Admit to general medical floor. Place NGT to IWS. Start Protonix 40 mg IV daily. Give IV Zofran prn for nausea and vomiting. Give Phenergan IM prn for breakthrough nausea and vomiting. Recheck KUB in AM to closely follow response to plan for conservative treatment. Finally, we will consult Dr. Patrick of general surgery to see this patient on-rounds in the AM for further recommendations with help appreciated in advance. 2. Intractable nausea and vomiting with bilious emesis arising from #1 - Place on aspiration precautions and give antiemetics as outlined above. 3. Mild dehydration evidenced by slight elevated BUN/creatinine ratio of 20.2 present on admission in the setting of previously known CKD; stage IIIa complicating #1 & #2 - Aggressively volume resuscitate and then recheck renal indices in AM to ensure improvement. 4. Obesity; with BMI of 34.6 this admission plus REY; on CPAP adding to the medical complexity of #1 - #3 - Weight loss will be recommended. Check TSH. This complicates her case and may hamper recovery. We will avoid CPAP at this time to prevent worsening abdominal distention from air insufflation of bowels. 5. Relatively recent admission here from March 17, 2024 to March 19, 2024 for SBO which was treated conservatively with NGT to LIWS and IV fluids with patient eventually able to tolerate oral diet resulting in her being sent home - Noted. 6. History of colon cancer; with subsequent colectomy (~2001) currently in remission - Noted. 7. Essential hypertension; on daily amlodipine and Lasix every other day - Hold oral antihypertensives and give prn IV Hydralazine for systolic blood pressure > 160 mmHg. 8. Hyperlipidemia; on atorvastatin - Hold statin for now until patient is able to safely resume oral intake. 9. RA; on methotrexate and hydroxychloroquine - Hold MTX and hydroxychloroquine until patient can take her oral medications. 10. History of polymyalgia rheumatica - Noted. 11. Former history of tobacco abuse - Noted. 12. Listed allergy to PCN (rash) - Noted. 13. Listed allergy to azithromycin (nausea, vomiting and diarrhea) - Noted. 14. Listed allergy to sulfonamide antibiotics (rash) - Noted. 15. Listed allergy to HCTZ (rash) - Noted. 16. Listed allergy to lisinopril (?) - Noted. 17. Listed allergy to NTG (?) - Noted. 18. Listed allergy to codeine (?) - Noted. 19. Depression with anxiety; on fluoxetine - Restart fluoxetine when patient is able to resume oral intake. 20. GERD; on omeprazole - Patient will be started on IV Protonix for #1. 21. History of CTS - Noted. 22. Osteoarthritis; with history of hip replacement - Noted. 23. History of appendectomy - Noted. 24. History of hernia repair; with mesh placement - Noted. 25. History of colonoscopy (~2015) - Noted. 26. History of wrist fracture - Noted. 27. Remote history of - Noted for the sake of completeness. 27. History of DNR-CCA with no intubation CODE STATUS - Noted and recorded in orders this admission. 28. DVT prophylaxis - Lovenox 40 mg sq daily plus SCD's. Total time: Approximately (but not less than) 75 minutes. Charges/Coding Visit Charges Inpatient E&M: 02567 Init Hosp L3
--- NOTE | 2024-08-12 04:34 | EX.ED.DYSGE1 ---
HPI History of Present Illness Chief Complaint: Abd Pain Informant: patient Narrative Narrative: Patient is an 79-year-old female with past medical history of hypertension hyperlipidemia and chronic kidney disease. She states that she has had previous abdominal surgeries with mesh placement and secondary to this has developed recurrent bowel obstructions. She reports her last obstruction occurred over the summer time and resolved with NG tube placement. She states she awoke this morning feeling normal and then around 4 PM developed abdominal discomfort with nausea. She states at that time she also noticed she stopped passing flatus. She states this feels similar nature to her previous obstructions and therefore comes in for evaluation. [facility] Medical History Anxiety and depression Bowel obstruction Wrist fracture Carpal tunnel syndrome FH: total knee replacement Polymyalgia rheumatica GERD (gastroesophageal reflux disease) Mixed hyperlipidemia CKD (chronic kidney disease) stage 3, GFR 30-59 ml/min REY on CPAP Essential hypertension SBO (small bowel obstruction) Abnormal mammogram of left breast History of colon cancer Rheumatoid arthritis Home Medications ?Medication ?Instructions ?Recorded ?Last Taken ?Type folic acid 1 mg tablet 2 tab PO DAILY SUPPLEMENT 10/20/15 11/28/20 09:30 History 2 tab fluoxetine 10 mg capsule 10 mg PO DAILY DEPRESSION 10/21/15 11/28/20 09:30 History 10 mg cholecalciferol (vitamin D3) 50 1,000 unit PO DAILY SUPPLEMENT 12/25/17 11/28/20 09:30 History mcg (2,000 unit) capsule 1000 u aspirin 81 mg tablet,delayed 81 mg PO DAILY heart health 12/24/19 11/28/20 09:30 History release 81 mg ascorbic acid (vitamin C) 500 mg 500 mg PO DAILY Supplement 03/12/20 11/28/20 09:30 History capsule 500 mg atorvastatin 10 mg tablet 10 mg PO QHS cholesterol 11/28/20 11/28/20 09:30 History 10 mg acetaminophen 500 mg tablet 500 mg PO Q6H PRN Pain 01/11/21 Unknown History amlodipine 5 mg tablet 5 mg PO QHS blood pressure 01/11/21 Unknown History methotrexate sodium 2.5 mg tablet 15 mg PO DA SILVA RHEUMATOID 01/11/21 Unknown History hydroxychloroquine 200 mg tablet 200 mg PO BID inflammation 04/13/21 Unknown History potassium chloride 20 mEq 20 meq PO BIDCM supplement #180 07/05/21 Unknown Rx tablet,extended release(part/cryst) tabs furosemide 40 mg tablet 40 mg PO Q OTHER DAY water pill 06/04/24 Unknown Rx #90 tabs omeprazole 40 mg capsule,delayed 40 mg PO DAILY 08/12/24 Unknown History release Allergy/AdvReac Type Severity Reaction Status Date / Time Penicillins (PCN) Allergy Rash Verified 08/12/24 00:12 Sulfa (Sulfonamide Allergy Rash Verified 08/12/24 00:12 Antibiotics) lisinopril AdvReac Unknown unknown Verified 08/12/24 00:12 azithromycin (From Zithromax) AdvReac Nausea/Vom/ Verified 08/12/24 00:12 Diarrhea codeine AdvReac Other Verified 08/12/24 00:12 hydrochlorothiazide AdvReac Rash Verified 08/12/24 00:12 nitroglycerin (From AdvReac Other Verified 08/12/24 00:12 Nitroglyn) Family History Sister Diabetes Asthma Hypertension Leukemia Brother Heart disease Hypertension Diabetes Father Myocardial infarction CAD (coronary artery disease) Mother Cancer Liver Hypertension Acute arthritis Surgical History History of hip replacement History of appendectomy History of colonoscopy (~2015) History of hernia repair History of section History of colectomy (~2001) Social History household members: none Smoking Status: Former smoker alcohol intake: never substance use type: does not use caffeine: Yes Type: coffee Number of servings: 2 ROS ROS ED Constitutional Constitutional ED: Denies chills or fever(s) ENT ENT ED: Denies sore throat Cardiovascular Cardiovascular: Denies chest pain Respiratory/Chest Respiratory/Chest: Denies cough or dyspnea Gastrointestinal Gastrointestinal: Reports abdominal pain, constipation and nausea; Denies vomiting Genitourinary Genitourinary ED: Denies dysuria Musculoskeletal Musculoskeletal: Denies myalgias Integumentary Denies rash Neurologic Neurologic: Denies headache(s) Hematologic/Lymphatic Hematologic/Lymphatic: Denies easy bleeding or easy bruising EXAM Physical Exam Const Vital Signs: 08/12/24 00:12 08/12/24 00:16 08/12/24 01:16 Temperature 97.4 F L 97.4 F L 97.4 F L Temperature Source Oral Oral Oral Pulse Rate 82 74 81 Respiratory Rate 18 18 18 Blood Pressure 170/66 H 170/66 H 131/99 H Blood Pressure Mean 100 100 109 Pulse Ox 97 97 100 Oxygen Delivery Method Room Air Room Air Room Air 08/12/24 02:11 08/12/24 04:00 Temperature Temperature Source Pulse Rate 78 83 Respiratory Rate 16 20 H Blood Pressure 147/61 H 154/71 H Blood Pressure Mean 89 98 Pulse Ox 98 96 Oxygen Delivery Method Room Air Room Air Positive well nourished, well developed and obese General Appearance ED: well developed; Negative for pallor Nutritional Appearance: obese HEENT HEENT Narrative: Normocephalic atraumatic Eyes PERRL and EOMs intact bilaterally General Eye ED: Negative for scleral icterus Neck supple Resp normal respiratory effort and clear to auscultation bilaterally Cardio regular rate and regular rhythm Rate: other Other Details: Radial and carotid pulses are equal and symmetric GI GI Narrative: Abdomen is obese and slightly distended with hypoactive bowel sounds. There is mild diffuse pain with palpation. There is increased tympany noted. No pulsatile mass or fluid wave Auscultation: hypoactive bowel sounds Extremity normal to inspection Neuro oriented x3, CN's II-XII intact bilaterally and no sensory deficits noted Sensorium / Orientation: alert Motor Exam: strength 5/5 throughout Psych mental status grossly normal Skin no rashes or lesions noted General Skin Exam: Negative for jaundice or pallor MDM MDM MDM Narrative Medical decision making narrative: Patient arrived to the ER hypertensive but otherwise with stable vitals. She reported generalized abdominal discomfort with nausea and lack of gas production and with her past medical history the most likely reason is small bowel obstruction. Patient could have potential diverticulitis or colitis or pancreatitis. There could also be ischemic colitis. Secondary to this basic labs and a CT scan with IV contrast were ordered. Labs revealed no clinically significant findings. White count was normal and there is no left shift going against an infectious process her lipase was normal going against acute pancreatitis and her lactic acid is also normal going against ischemic process. CT with IV contrast did confirm small bowel obstruction with transition point. There is no obvious abscess or perforation. The case was discussed with the general surgeon Dr. Patrick. He states that similar to the summer time there is no need for emergent surgical intervention and recommends NG tube placement and time for decompression. Based on her complex medical history he does recommend admission to the medical service. Therefore the hospitalist was contacted who agrees to accept the patient at this time for continued care. With need for decompression of the intestines an NG tube was placed prior to transport to the floor History & Record Review Discussion w/independent historian: Patient Lab Data Attestation: I reviewed the patient's lab results. Labs: Laboratory Results - last 24 hr 08/12/24 08/12/24 00:22 00:44 WBC 5.7 RBC 4.63 Hgb 14.2 Hct 41.8 MCV 90.3 MCH 30.7 MCHC 34.0 RDW Std Deviation 44.5 H RDW Coeff of Unique 13.5 Plt Count 276 MPV 9.6 Immature Gran % (Auto) 0.200 Neut % (Auto) 47.6 Lymph % (Auto) 49.6 H [place] % (Auto) 1.9 Eos % (Auto) 0.5 Baso % (Auto) 0.2 Absolute Neuts (auto) 2.7 Absolute Lymphs (auto) 2.82 Nucleated RBC % 0 Sodium 139 Potassium 3.6 Chloride 105 Carbon Dioxide 26.0 Anion Gap 8 BUN 23 H Creatinine 1.14 H Estim Creat Clear Calc 45.52 Est GFR (MDRD) Af Amer 59 L Est GFR (MDRD) Non-Af 49 L BUN/Creatinine Ratio 20.2 H Glucose 146 H Lactic Acid 1.3 Calcium 9.4 Total Bilirubin 0.70 Direct Bilirubin 0.23 AST 24 ALT 18 Alkaline Phosphatase 95 Total Protein 7.3 Albumin 3.8 Globulin 3.5 Lipase 19 Radiography Diagnostic Testing: Clinical Impression(s) from Imaging Studies Abdomen/Pelvis CT 08/12/24 00:31 IMPRESSION: Small bowel obstruction the distal ileum. Electronically Signed: Jina Smith MD at 3:56 EST , KUB as interpreted by the emergency medicine physician reveals the NG tube to be in proper position with positive air-fluid levels consistent with small bowel obstruction Discharge Plan Dx/Rx/DC Orders Clinical Impression: SBO (small bowel obstruction), Essential hypertension, Rheumatoid arthritis, GERD (gastroesophageal reflux disease), Mixed hyperlipidemia, CKD (chronic kidney disease) stage 3, GFR 30-59 ml/min Disposition Disposition: Acute Care Hospital [facility]
--- NOTE | 2024-08-12 04:50 | RAD_ITS ---
STUDY: X-RAY - ABDOMEN/PELVIS REASON FOR EXAM: Female, 79 years old. NG Insertion TECHNIQUE: Single AP view of the abdomen / pelvis. COMPARISON: Small bowel series dated March 18, 2024. CT of abdomen and pelvis dated August 12, 2024 FINDINGS: 1. The feeding tube is called upon itself within the mid thoracic esophagus and should be repositioned to terminate in the stomach 2. The images collimated with only the mid to upper abdomen included in the [id number]. Redemonstration of dilated bowel loops in the small bowel distribution in the central and left abdomen 3. Oral contrast is seen in bowel loops in the subhepatic space 4. Redemonstration of ventral hernia postsurgical material of the anterior abdominal wall 5. Normal visualized lung bases. Normal soft tissue structures. There are diffuse degenerative changes of the visualized lumbar spine. RAD/Abdomen Single View (Portable) IMPRESSION: Malpositioned feeding tube-- needs to be repositioned 1. The feeding tube is called upon itself within the mid thoracic esophagus and should be repositioned to terminate in the stomach Electronically Signed: Rm Wyatt MD at 8:20 EST ,
--- NOTE | 2024-08-12 05:00 | RAD_ITS ---
STUDY: X-RAY - ABDOMEN/PELVIS REASON FOR EXAM: Female, 79 years old. NG INSERT TECHNIQUE: Single AP view of the abdomen / pelvis. COMPARISON: Prior abdominal x-ray dated August 12, 2024 at 4:48 AM FINDINGS: Follow-up study at 4:57 AM 1. The feeding tube has been repositioned and terminates in the body of the stomach in the left upper quadrant in good position. 2. No other interval changes have occurred since the prior study Normal soft tissue structures. There are diffuse degenerative changes of the visualized lumbar spine. RAD/Abdomen Single View (Portable) IMPRESSION: * Corrected feeding tube position now terminates in the body of the stomach Electronically Signed: Rm Wyatt MD at 8:21 EST ,
[2024-08-12] MEDS: 0.9% Normal Saline (1000mL) 1,000 ML 75 ML IV (06:41)
--- NOTE | 2024-08-12 07:54 | PN.HOSP_ITS ---
Reason for Visit Reason for Visit: Diagnoses Obesity, class 1 (08/12/24) Dehydration (08/12/24) Obstructive sleep apnea (adult) (pediatric) (08/12/24) Essential (primary) hypertension (08/12/24) Unspecified intestinal obstruction, unspecified as to partial versus complete obstruction (08/12/24) Chronic kidney disease, stage 3a (08/12/24) Nausea with vomiting, unspecified (08/12/24) Personal history of other malignant neoplasm of large intestine (08/12/24) Personal history of other diseases of the digestive system (08/12/24) Dependence on other enabling machines and devices (08/12/24) Subjective Subjective Now her 6th SBO. Thinks this episode may have been related to incompletely chewed up chicken this time. Objective Data Objective Data Vital Signs: Vital Signs Temp Pulse Resp BP Pulse Ox O2 Del Method 37.0 C 80 16 140/65 H 96 Room Air 08/12/24 06:03 08/12/24 06:03 08/12/24 06:03 08/12/24 06:03 08/12/24 06:03 08/12/24 06:03 Oxygen Delivery Method Room Air Weight: 97.069 kg Body Mass Index (BMI) 35.6 Intake & Output: Intake and Output for Last 24 Hours 08/10/24 08/11/24 08/12/24 23:59 23:59 23:59 Intake Total 1000 / 1000 Balance 1000 / 1000 Lab / Micro Data 08/12/24 00:22 08/12/24 00:22 Labs: Laboratory Results - last 24 hr 08/12/24 00:22: WBC 5.7, RBC 4.63, Hgb 14.2, Hct 41.8, MCV 90.3, MCH 30.7, MCHC 34.0, RDW Std Deviation 44.5 H, RDW Coeff of Unique 13.5, Plt Count 276, MPV 9.6, Immature Gran % (Auto) 0.200, Neut % (Auto) 47.6, Lymph % (Auto) 49.6 H, [place] % (Auto) 1.9, Eos % (Auto) 0.5, Baso % (Auto) 0.2, Absolute Neuts (auto) 2.7, Absolute Lymphs (auto) 2.82, Nucleated RBC % 0, Sodium 139, Potassium 3.6, Chloride 105, Carbon Dioxide 26.0, Anion Gap 8, BUN 23 H, Creatinine 1.14 H, Estim Creat Clear Calc 45.52, Est GFR (MDRD) Af Amer 59 L, Est GFR (MDRD) Non-Af 49 L, BUN/Creatinine Ratio 20.2 H, Glucose 146 H, Calcium 9.4, Total Bilirubin 0.70, Direct Bilirubin 0.23, AST 24, ALT 18, Alkaline Phosphatase 95, Total Protein 7.3, Albumin 3.8, Globulin 3.5, Lipase 19, TSH 9.650 H 08/12/24 00:44: Lactic Acid 1.3 Radiography Diagnostic Testing: Radiology Impression Abdomen/Pelvis CT 08/12/24 00:31 IMPRESSION: Small bowel obstruction the distal ileum. Electronically Signed: Jian Smith MD at 3:56 EST , Physical Exam Const alert and no apparent distress HEENT head/scalp atraumatic and moist oral mucous membranes HEENT Narrative: NGT in place. Resp normal respiratory effort, no retractions, no use of accessory muscles and clear to auscultation bilaterally Cardio regular rate, regular rhythm, S1 normal heart sound and S2 normal heart sound GI normal to inspection, nondistended, normoactive bowel sounds, soft to palpation, non-tender and non-distended Extremity normal to inspection and full ROM Neuro Sensorium / Orientation: awake and alert Assessment & Plan Assessment/Plan (1) SBO (small bowel obstruction): PLAN: Plan SBO * NGT * Gen Surg consult * NPO * pain control, antiemetics. * Follow up small bowel series. Chronic conditions: * Obesity; with BMI of 34.6 this admission plus REY; on CPAP adding to the medical complexity of #1 - #3 - Weight loss will be recommended. Check TSH. This complicates her case and may hamper recovery. We will avoid CPAP at this time to prevent worsening abdominal distention from air insufflation of bowels. * History of colon cancer; with subsequent colectomy (~2001) currently in remission * Essential hypertension; on daily amlodipine and Lasix every other day - Hold oral antihypertensives and give prn IV Hydralazine for systolic blood pressure > 160 mmHg. * Hyperlipidemia; on atorvastatin - Hold statin for now until patient is able to safely resume oral intake. * RA; on methotrexate and hydroxychloroquine - Hold MTX and hydroxychloroquine until patient can take her oral medications. * History of polymyalgia rheumatica * former history of tobacco abuse VTE prophylaxis: LMWH Charges/Coding Procedures Hospitalists Procedures: Other Procedure - See Report (Nonbillable rounding as patient was admitted after midnight.)
--- NOTE | 2024-08-12 07:54 | CON.PCM.SX_ITS ---
Assessment & Plan Assessment/Plan (1) SBO (small bowel obstruction): PLAN: I have been consulted in conjunction with Dr. Patrick. He will independently evaluate this patient. Patient has a 1 day history of abdominal bloating, pain with associated nausea and vomiting. CT scan demonstrated a small bowel obstruction near the distal ileum. Since NG tube placement, patient's pain and bloating have resolved. Plan to obtain a small bowel series with Gastrografin through the NG tube. We will plan to keep the NG tube clamped while the small bowel series is completed unless patient were to become nauseated. Would like NG tube clamped for at least 4 hours. Patient is persistent that she does not want any surgical intervention, which she has voiced during previous hospitalizations. Patient is agreeable to proceed with a small bowel follow- through. If small bowel follow-through shows contrast within the colon, plan to remove NG tube and start on clear liquids. Patient has had the opportunity to ask and have questions answered. Patient verbally understands and agrees with the plan. Thank you for allowing us to participate in this patient's care. HPI Consult Data Date of Consult: 08/12/24 HPI Narrative Reason for Consultation: Small bowel obstruction HPI Narrative: FABIO PORTILLO, is a 79 F who presents with a 1 day history of abdominal bloating and pain, nausea and vomiting. Patient has a significant history of recurrent small bowel obstruction. Patient's last SBO was at the end of February this year. She notes her symptoms occur approximately every 6 months. Patient noted her symptoms started around 2 pm yesterday. She noted bloating and abdominal pain across her mid abdomen. She notes her last bowel movement was Friday. She notes having one episode of diarrhea on Friday. She notes she has not passed flatus since Friday. Patient noted when the abdominal bloating started, she knew that she was developing another bowel obstruction. She notes nausea started last night. She notes the dry heaves and vomiting started when she was in triage in the ED. She states this episode may be from chicken she recently ate. Although, she admits to also being dehydrated lately with the weather being colder and turning up the heat. She notes a previous abdominal surgical history including 3 c-sections, previous colectomy, appendectomy and hernia repair with a large piece of mesh. She notes being on a daily 81 mg aspirin. She follows with cardiology every 6 months for a leaky Tricuspid valve. Patient has a history of sleep apnea. CT scan of ab/pel demonstrated Small bowel obstruction with transition in the distal ileum. NG tube was placed within the left nares after 3-[address] the NG tube in the right nares without success. Labs include WBC 5.7, Hgb 14.2, Hct 41.8, Plt 276. Creatinine 1.14, BUN 23. PFSH Medical History Anxiety and depression Bowel obstruction Wrist fracture Carpal tunnel syndrome FH: total knee replacement Polymyalgia rheumatica GERD (gastroesophageal reflux disease) Mixed hyperlipidemia CKD (chronic kidney disease) stage 3, GFR 30-59 ml/min REY on CPAP Essential hypertension SBO (small bowel obstruction) Abnormal mammogram of left breast History of colon cancer Rheumatoid arthritis Home Medications ?Medication ?Instructions ?Recorded ?Last Taken ?Type folic acid 1 mg tablet 2 tab PO DAILY SUPPLEMENT 10/20/15 11/28/20 09:30 History 2 tab fluoxetine 10 mg capsule 10 mg PO DAILY DEPRESSION 10/21/15 11/28/20 09:30 History 10 mg cholecalciferol (vitamin D3) 50 1,000 unit PO DAILY SUPPLEMENT 12/25/17 11/28/20 09:30 History mcg (2,000 unit) capsule 1000 u aspirin 81 mg tablet,delayed 81 mg PO DAILY heart health 12/24/19 11/28/20 09:30 History release 81 mg ascorbic acid (vitamin C) 500 mg 500 mg PO DAILY Supplement 03/12/20 11/28/20 09:30 History capsule 500 mg atorvastatin 10 mg tablet 10 mg PO QHS cholesterol 11/28/20 11/28/20 09:30 History 10 mg acetaminophen 500 mg tablet 500 mg PO Q6H PRN Pain 01/11/21 Unknown History amlodipine 5 mg tablet 5 mg PO QHS blood pressure 01/11/21 Unknown History methotrexate sodium 2.5 mg tablet 17.5 mg PO DA SILVA RHEUMATOID 01/11/21 08/08/24 History hydroxychloroquine 200 mg tablet 200 mg PO BID inflammation 04/13/21 Unknown History potassium chloride 20 mEq 20 meq PO BIDCM supplement #180 07/05/21 Unknown Rx tablet,extended release(part/cryst) tabs furosemide 40 mg tablet 40 mg PO Q OTHER DAY water pill 06/04/24 Unknown Rx #90 tabs omeprazole 40 mg capsule,delayed 40 mg PO DAILY 08/12/24 Unknown History release Allergy/AdvReac Type Severity Reaction Status Date / Time Penicillins (PCN) Allergy Rash Verified 08/12/24 00:12 Sulfa (Sulfonamide Allergy Rash Verified 08/12/24 00:12 Antibiotics) lisinopril AdvReac Unknown unknown Verified 08/12/24 00:12 azithromycin (From Zithromax) AdvReac Nausea/Vom/ Verified 08/12/24 00:12 Diarrhea codeine AdvReac Other Verified 08/12/24 00:12 hydrochlorothiazide AdvReac Rash Verified 08/12/24 00:12 nitroglycerin (From AdvReac Other Verified 08/12/24 00:12 Nitroglyn) Family History Sister Diabetes Asthma Hypertension Leukemia Brother Heart disease Hypertension Diabetes Father Myocardial infarction CAD (coronary artery disease) Mother Cancer Liver Hypertension Acute arthritis Surgical History History of hip replacement History of appendectomy History of colonoscopy (~2015) History of hernia repair History of section History of colectomy (~2001) Social History household members: none Smoking Status: Former smoker alcohol intake: never substance use type: does not use caffeine: Yes Type: coffee Number of servings: 2 ROS Constitutional Constitutional: Reports systems reviewed and no addt'l complaints, except as documented Eyes Eyes: Reports systems reviewed and no addt'l complaints, except as documented ENT HEENT: Reports systems reviewed and no addt'l complaints, except as documented Cardiovascular Cardiovascular: Reports systems reviewed and no addt'l complaints, except as documented Respiratory/Chest Respiratory/Chest: Reports systems reviewed and no addt'l complaints, except as documented Gastrointestinal Gastrointestinal: Reports systems reviewed and no addt'l complaints, except as documented Genitourinary Genitourinary: Reports systems reviewed and no addt'l complaints, except as documented Musculoskeletal Musculoskeletal: Reports systems reviewed and no addt'l complaints, except as documented Integumentary Integumentary: Reports systems reviewed and no addt'l complaints, except as documented Neurologic Neurologic: Reports systems reviewed and no addt'l complaints, except as documented Psychiatric Psychiatric: Reports systems reviewed and no addt'l complaints, except as documented Endocrine Endocrinology: Reports systems reviewed and no addt'l complaints, except as documented Hematologic/Lymphatic Hematologic/Lymphatic: Reports systems reviewed and no addt'l complaints, except as documented Allergic/Immunologic Allergic/Immunologic: Reports systems reviewed and no addt'l complaints, except as documented Physical Exam Const alert, oriented x3 and no apparent distress HEENT normocephalic and head/scalp atraumatic HEENT Narrative: NG tube intact in left nares with approximately 100 cc of bloody fluid in the canister. There is some intermittent brown sediment within the tubing. Wall suction was turned to reg suction on high as it appears as though it was not suctioning out any fluid. Once turned higher, fluid did fill the canister. Tubing was unconnected and suction was coming from the tubing. Tubing reconnected and fluid noted to slowly flow. Eyes PERRL Neck full ROM Resp normal respiratory effort and clear to auscultation bilaterally Cardio regular rate and regular rhythm GI GI Narrative: Abdomen- soft, non-distended. Non-tender to palpation. Hypoactive bowel sounds. no CVA tenderness Back/Spine no CVA tenderness Extremity normal to inspection Skin no rashes or lesions noted Neuro no focal motor deficits and no sensory deficits noted Psych mental status grossly normal and thought process normal Lab / Micro Data 08/12/24 00:22 08/12/24 00:22 Labs: Laboratory Results - last 24 hr 08/12/24 00:22: WBC 5.7, RBC 4.63, Hgb 14.2, Hct 41.8, MCV 90.3, MCH 30.7, MCHC 34.0, RDW Std Deviation 44.5 H, RDW Coeff of Unique 13.5, Plt Count 276, MPV 9.6, Immature Gran % (Auto) 0.200, Neut % (Auto) 47.6, Lymph % (Auto) 49.6 H, [place] % (Auto) 1.9, Eos % (Auto) 0.5, Baso % (Auto) 0.2, Absolute Neuts (auto) 2.7, Absolute Lymphs (auto) 2.82, Nucleated RBC % 0, Sodium 139, Potassium 3.6, Chloride 105, Carbon Dioxide 26.0, Anion Gap 8, BUN 23 H, Creatinine 1.14 H, Estim Creat Clear Calc 45.52, Est GFR (MDRD) Af Amer 59 L, Est GFR (MDRD) Non-Af 49 L, BUN/Creatinine Ratio 20.2 H, Glucose 146 H, Calcium 9.4, Total Bilirubin 0.70, Direct Bilirubin 0.23, AST 24, ALT 18, Alkaline Phosphatase 95, Total Protein 7.3, Albumin 3.8, Globulin 3.5, Lipase 19, TSH 9.650 H 08/12/24 00:44: Lactic Acid 1.3 Imaging Radiology Impression Abdomen/Pelvis CT 08/12/24 00:31 IMPRESSION: Small bowel obstruction the distal ileum. Electronically Signed: Jina Smith MD at 3:56 EST , Charges/Coding Visit Charges Inpatient E&M: 66621 Init Hosp L2
--- NOTE | 2024-08-12 08:31 | RAD_ITS ---
EXAM: FL SMALL BOWEL FOLLOW THROUGH CLINICAL INDICATION: Small bowel obstruction -- TECHNIQUE: NG gastrografin; KUB in the immediate, 1H, 3H and 6H -- -- MODIFIED SBS- NO FLUORO SPOT IMAGES DONE COMPARISON: Abdominal radiograph 08/12/2024. FINDINGS: SMALL BOWEL: The endogastric tube remains in place. Small hiatal hernia is present. There is progression of dilute contrast throughout the small bowel which remains moderately dilated. There is visualization of dilute contrast within the mildly distended large bowel at 6 hours. RAD/Small Bowel Series Only IMPRESSION: Findings suggest diffuse ileus versus partial distal small bowel obstruction. Electronically Signed: Tyron Jordan MD at 16:28 EST ,
--- NOTE | 2024-08-12 09:29 | NURSING ---
pt to x ray
[2024-08-12] MEDS: Pantoprazole Sodium 40 MG in 0.9% Normal Saline (100mL MB+) 100 ML 330 MG IV ×2 (10:10→21:07)
[2024-08-12] MEDS: Enoxaparin 40 MG/0.4 ML Syringe SC (10:11)
--- NOTE | 2024-08-12 11:15 | CASEMGMT ---
RN CM BEEF GRINDER CM?to room to meet with patient for initial transition planning/care coordination assessment. RN CM?introduced self and role at [facility]. Pt voices understanding and consents to assessment?at this time. Pt resting in bed in no distress at this time, NG in place. Pt is A/O at this time and answers all questions appropriately. Care providers, pharmacy, and demographics verified/updated at this time. Strata:?2 PCP: Dr Ballard Specialists: Dr Sarabia- for RA, WHG/Cardiology Preferred Pharmacy: [facility] Retail Insurance: Radha CORTEZ Prescription Benefit:yes Living Will/HPOA: Has both LW and HCPOA, aware they are not on file @ [facility]. She states will ask daughter if she can bring them in when she comes to visit. LNOK: 3 adult children: David Dumont, and Freddy Living Arrangements: Lives alone in bi-level home w/2 steps to enter. 5 steps b/w levels and denies difficulty with the stairs. Indep w/ADL's and manages her own medications and appts. Dtr, Julia, lives about 1/2 mile away and is very supportive/helpful. She gets her groceries and helps w/home mgnt tasks and pt states she does anything I need or want. Transportation:?Pt states drives self and states no transportation concerns at this time. Dtr assists, if needed. DME: States has the following DME: comfort-height commode, cane for long distances, grab bars, CPAP, pulse ox. Pt also has available, but does not use: shower chair, BSC, RTS, walker. Pt would like info on medical alert system and states would like to get one from [facility]. Pt provided w/brochure/contact info. Pt states no need for further DME at this time. HHC/SNF: No hx of either. Has done OP therapy @ [facility]. Discussed discharge planning. Pt wishes to return home and states has no concerns with going home at time of discharge. She declines wanting HHC or OP therapy at this time. Made aware to ask for CM if she changes her mind while in the hospital, or if she decides once she returns home she would like either, to discuss this w/her PCP. She voices appreciation. CM?to follow for any further discharge planning/needs. Pt voices no further concerns/needs at this time. Advised pt to ask for CM?if any further questions/concerns/needs arise. Voices understanding. PLAN: Home Gema MCALLISTER RN CM
[2024-08-12] MEDS: Morphine 2 MG/ML Syringe IV (11:19)
--- NOTE | 2024-08-12 15:10 | CHAPLAIN ---
Type of Pastoral Visit _x__ Initial Visit ___ Follow-up Visit ___ On-call Visit ___ General Patient Visit ___ Spiritual Assessment ___ Family Conference ___ Bereavement ___ Rapid Response ___ Code Blue ___ Other (describe below) Pastoral Care Referral From _x__ Patient ___ Family ___ Nurse ___ Physician ___ Claims Service Representative ___ Wet Pour Supervisor ___ Other (describe below) Sacrament/Intervention _x__ Active listening ___ Anointing ___ Tenriism ___ Bereavement ___ Communion _x__ Pam exploration ___ ___ Life review _x__ Prayer ___ Reconciliation ___ Sacrament of Sick ___ Supportive presence ___ Wedding ___ Other (describe below) Pastoral Comments patient is welcoming and expresses her pam in God and appreciation for the spiritual care support given at this time; pt has had this health problem before and understands what the process is although it is still uncomfortable; pt has been in last two years and speaks of her adjustment which is going better than she expected; pt welcomes prayer
--- NOTE | 2024-08-12 16:39 | PCM.PN.BLA ---
Progress Note SBFT results noted. ileus vs PSBO. will DC NG and begin sips/chips Dr Lord to cover tomorrow and weekend
[2024-08-12] MEDS: 0.9% Normal Saline (1000mL) 1,000 ML 100 ML IV (17:52)
[2024-08-13 04:00] VITALS: BP 137/57; PULSE 75; PULSE 83; RESP 15; TEMP 36.6; O2SAT 92
[2024-08-13 06:00] VITALS: BMI 35.6
--- NOTE | 2024-08-13 06:20 | RAD_ITS ---
STUDY: X-RAY - ABDOMEN/PELVIS REASON FOR EXAM: Female, 79 years old. SBO. TECHNIQUE: Single AP view of the abdomen / pelvis on 2 images. COMPARISON: None. FINDINGS: Normal visualized lung bases. Contrast within colon extending to the rectum. No disproportionate dilatation of bowel. Moderate amount of gas. Postsurgical changes over the upper right abdomen, lateral abdomen and upper right and mid pelvis. Right total hip arthroplasty. Mild arthrosis of the left hip. RAD/Abdomen Single View (Portable) IMPRESSION: Contrast in colon with no evidence of small bowel obstruction. Electronically Signed: Cuong Maza MD at 8:27 EST ,
[2024-08-13 06:21] LABS: Absolute Lymphocyte Count 1.65 X10^3/uL (0.83-4.51); Absolute Neutrophil Count 3.4 X10^3/uL (2.0-7.7); Basophil# 0.02 X10^3/uL; Basophil% 0.3 % (0-1); Eosinophils% 5.1 % (0-5); Hematocrit 35.7 % (37-47); Hemoglobin 11.6 g/dL (12.0-15.0); Lymphocyte # 1.65 X10^3/ul (0.83-4.51); Lymphocyte % 27.9 % (19-41); Mean Corp Hgb Conc 32.5 g/dL (32-36); Mean Corpuscular Hgb 30.5 pg (27.0-32.0); Mean Corpuscular Volume 93.9 fL (81-99); Mean Platelet Vol. 9.7 fl (6.2-12.0); Monocyte# 0.56 X10^3/uL; Monocyte% 9.5 % (0-10); NRBC Flagged by Analyzer 0 % (0-5); Neutrophil # 3.38 X10^3/uL (2.7-7.7); Platelet Count 235 K/mm3 (150-450); RBC Distribution Width CV 13.8 % (11.6-14.6); RBC Distribution Width SD 46.8 fl (35.1-43.9); White Blood Count 5.9 K/mm3 (4.4-11.0)
[2024-08-13 06:32] LABS: ALB/GLOB Ratio 0.9 RATIO (0.9-2.4); AST(SGOT) 15 U/L (15-37); Alanine Aminotransfer ALT/SGPT 13 U/L (13-56); Albumin, Serum 2.8 g/dL (3.2-5.0); Alkaline Phosphatase 57 U/L (45-117); Anion Gap 4 (5-15); BUN 19 mg/dL (7-18); BUN/Creat Ratio 19.1 RATIO (10-20); Calcium,Total 8.2 mg/dL (8.5-10.1); Chloride 114 mmol/L (98-107); EST Glomerular Filtration Rate 57 mL/min (>60); Est Glom Filt Rate - Afr Amer 69 mL/min (>60); Globulin 3.1 g/dL (2.2-4.2); Glucose 82 mg/dL (74-106); Magnesium 2.3 mg/dL (1.6-2.6); Phosphorus 2.4 mg/dL (2.5-4.9); Potassium 3.5 mmol/L (3.5-5.1); Protein, Total 5.9 g/dL (6.4-8.2); Sodium Level 142 mmol/L (136-145)
--- NOTE | 2024-08-13 07:31 | PCM.PN.SRG ---
Subjective Subjective Patient notes he is passing flatus and has had bowel movements. She is not having any abdominal pain or nausea. Objective Data Objective Data Vital Signs: Vital Signs Temp Pulse Resp BP Pulse Ox O2 Del Method 97.9 F 83 15 137/57 H 92 Room Air 08/13/24 04:00 08/13/24 04:00 08/13/24 04:00 08/13/24 04:00 08/13/24 04:00 08/13/24 04:00 Oxygen Delivery Method Room Air Weight: 214 lb 4.629 oz Body Mass Index (BMI) 35.6 Intake & Output: Intake and Output for Last 24 Hours 08/11/24 08/12/24 08/13/24 23:59 23:59 23:59 Intake Total 2255.42 / 2255.42 1000 / 1000 Balance 2255.42 / 2255.42 1000 / 1000 Lab / Micro Data 08/13/24 05:42 08/13/24 05:42 Labs: Laboratory Results - last 24 hr 08/13/24 05:42: WBC 5.9, RBC 3.80 L, Hgb 11.6 L, Hct 35.7 L, MCV 93.9, MCH 30.5, MCHC 32.5, RDW Std Deviation 46.8 H, RDW Coeff of Unique 13.8, Plt Count 235, MPV 9.7, Immature Gran % (Auto) 0.200, Neut % (Auto) 57.0, Lymph % (Auto) 27.9, [place] % (Auto) 9.5, Eos % (Auto) 5.1 H, Baso % (Auto) 0.3, Absolute Neuts (auto) 3.4, Absolute Lymphs (auto) 1.65, Nucleated RBC % 0, Sodium 142, Potassium 3.5, Chloride 114 H, Carbon Dioxide 24.0, Anion Gap 4 L, BUN 19 H, Creatinine 1.00, Estim Creat Clear Calc 50.90, Est GFR (MDRD) Af Amer 69, Est GFR (MDRD) Non-Af 57 L, BUN/Creatinine Ratio 19.1, Glucose 82, Calcium 8.2 L, Phosphorus 2.4 L, Magnesium 2.3, Total Bilirubin 0.80, AST 15, ALT 13, Alkaline Phosphatase 57, Total Protein 5.9 L, Albumin 2.8 L, Globulin 3.1, Albumin/Globulin Ratio 0.9 Radiography Diagnostic Testing: Radiology Impression KUB X-Ray 08/12/24 04:50 IMPRESSION: Malpositioned feeding tube-- needs to be repositioned 1. The feeding tube is called upon itself within the mid thoracic esophagus and should be repositioned to terminate in the stomach Electronically Signed: Rm Wyatt MD at 8:20 EST , KUB X-Ray 08/12/24 05:00 IMPRESSION: * Corrected feeding tube position now terminates in the body of the stomach Electronically Signed: Rm Wyatt MD at 8:21 EST , Small Bowel X-Ray 08/12/24 08:31 IMPRESSION: Findings suggest diffuse ileus versus partial distal small bowel obstruction. Electronically Signed: Tyron Jordan MD at 16:28 EST , Physical Exam Const oriented x3 and no apparent distress Resp normal respiratory effort GI soft to palpation and non-tender Assessment & Plan Assessment/Plan (1) SBO (small bowel obstruction): PLAN: Patient had partial small bowel obstruction. She underwent small bowel follow-through which showed entry into the colon. She had an x-ray today which shows that all of the contrast is in her colon and there is no distended small bowel. She is feeling much more comfortable and reports she is passing flatus and had a bowel movement. I will start her on a regular diet this morning and if she tolerates regular diet today she can go home. Follow-up as needed. Leandro Goodman MD Pager: [facility] [address] [place] [address], [address] [place] [address] Office:
[2024-08-13] MEDS: Enoxaparin 40 MG/0.4 ML Syringe SC (07:40)
[2024-08-13] MEDS: Pantoprazole Sodium 40 MG in 0.9% Normal Saline (100mL MB+) 100 ML 330 MG IV (07:44)
[2024-08-13 08:26] VITALS: BP 131/58; PULSE 84; RESP 16; TEMP 36.6; O2SAT 95
[2024-08-13 08:31] VITALS: PULSE 84
--- NOTE | 2024-08-13 08:35 | PCM.PN.HOSP ---
Reason for Visit Reason for Visit: Diagnoses Obesity, class 1 (08/12/24) Dehydration (08/12/24) Obstructive sleep apnea (adult) (pediatric) (08/12/24) Essential (primary) hypertension (08/12/24) Unspecified intestinal obstruction, unspecified as to partial versus complete obstruction (08/12/24) Chronic kidney disease, stage 3a (08/12/24) Nausea with vomiting, unspecified (08/12/24) Personal history of other malignant neoplasm of large intestine (08/12/24) Personal history of other diseases of the digestive system (08/12/24) Dependence on other enabling machines and devices (08/12/24) Subjective Subjective Feels better. Objective Data Objective Data Vital Signs: Vital Signs Temp Pulse Resp BP Pulse Ox O2 Del Method 36.6 C 84 16 131/58 H 95 Room Air 08/13/24 08:26 08/13/24 08:31 08/13/24 08:26 08/13/24 08:26 08/13/24 08:26 08/13/24 08:26 Oxygen Delivery Method Room Air Weight: 97.2 kg Body Mass Index (BMI) 35.6 Intake & Output: Intake and Output for Last 24 Hours 08/11/24 08/12/24 08/13/24 23:59 23:59 23:59 Intake Total 2255.42 / 2255.42 1110 / 1110 Balance 2255.42 / 2255.42 1110 / 1110 Lab / Micro Data 08/13/24 05:42 08/13/24 05:42 Labs: Laboratory Results - last 24 hr 08/13/24 05:42: WBC 5.9, RBC 3.80 L, Hgb 11.6 L, Hct 35.7 L, MCV 93.9, MCH 30.5, MCHC 32.5, RDW Std Deviation 46.8 H, RDW Coeff of Unique 13.8, Plt Count 235, MPV 9.7, Immature Gran % (Auto) 0.200, Neut % (Auto) 57.0, Lymph % (Auto) 27.9, [place] % (Auto) 9.5, Eos % (Auto) 5.1 H, Baso % (Auto) 0.3, Absolute Neuts (auto) 3.4, Absolute Lymphs (auto) 1.65, Nucleated RBC % 0, Sodium 142, Potassium 3.5, Chloride 114 H, Carbon Dioxide 24.0, Anion Gap 4 L, BUN 19 H, Creatinine 1.00, Estim Creat Clear Calc 50.90, Est GFR (MDRD) Af Amer 69, Est GFR (MDRD) Non-Af 57 L, BUN/Creatinine Ratio 19.1, Glucose 82, Calcium 8.2 L, Phosphorus 2.4 L, Magnesium 2.3, Total Bilirubin 0.80, AST 15, ALT 13, Alkaline Phosphatase 57, Total Protein 5.9 L, Albumin 2.8 L, Globulin 3.1, Albumin/Globulin Ratio 0.9 Radiography Diagnostic Testing: Radiology Impression KUB X-Ray 08/12/24 04:50 IMPRESSION: Malpositioned feeding tube-- needs to be repositioned 1. The feeding tube is called upon itself within the mid thoracic esophagus and should be repositioned to terminate in the stomach Electronically Signed: Rm Wyatt MD at 8:20 EST , Small Bowel X-Ray 08/12/24 08:31 IMPRESSION: Findings suggest diffuse ileus versus partial distal small bowel obstruction. Electronically Signed: Tyron Jordan MD at 16:28 EST , KUB X-Ray 08/13/24 06:20 IMPRESSION: Contrast in colon with no evidence of small bowel obstruction. Electronically Signed: Cuong Maza MD at 8:27 EST , Physical Exam Const alert and no apparent distress HEENT head/scalp atraumatic and moist oral mucous membranes GI soft to palpation, non-tender and non-distended Assessment & Plan Assessment/Plan (1) SBO (small bowel obstruction): PLAN: Plan SBO SBFT cleared. Gen Surg consult pain control, antiemetics. regular diet now, if tolerates, can be discharged. Chronic conditions: Obesity; with BMI of 34.6 this admission plus REY; on CPAP adding to the medical complexity of #1 - #3 - Weight loss will be recommended. Check TSH. This complicates her case and may hamper recovery. We will avoid CPAP at this time to prevent worsening abdominal distention from air insufflation of bowels. History of colon cancer; with subsequent colectomy (~2001) currently in remission Essential hypertension; on daily amlodipine and Lasix every other day - Hold oral antihypertensives and give prn IV Hydralazine for systolic blood pressure > 160 mmHg. Hyperlipidemia; on atorvastatin - Hold statin for now until patient is able to safely resume oral intake. RA; on methotrexate and hydroxychloroquine - Hold MTX and hydroxychloroquine until patient can take her oral medications. History of polymyalgia rheumatica former history of tobacco abuse VTE prophylaxis: LMWH Discharge home.
--- NOTE | 2024-08-13 10:07 | DS.PCM_ITS ---
Providers Date of Admission: 08/12/24 Primary Care Physician: Dr. Jesus Ballard MD Consultations 08/12/24 05:58 Consult: General Surgery Routine Consulting Provider: Julio Patrick Reason for Consult: SBO EMERGENT Consult: No MD Notified: Yes Date Notified: 08/12/24 Time Notified: 05:32 Method of Notification: ED Physician Initiated Reason For Visit: SBO WITH INTRACTABLE N/V AND DEHYDRATION Diagnosis Discharge Diagnosis (1) SBO (small bowel obstruction): Status: Acute Code(s): K56.609 - Unspecified intestinal obstruction, unspecified as to partial versus complete obstruction Plan SBO * SBFT cleared. * Gen Surg consult * pain control, antiemetics. * regular diet now, if tolerates, can be discharged. Chronic conditions: * Obesity; with BMI of 34.6 this admission plus REY; on CPAP adding to the medical complexity of #1 - #3 - Weight loss will be recommended. Check TSH. This complicates her case and may hamper recovery. We will avoid CPAP at this time to prevent worsening abdominal distention from air insufflation of bowels. * History of colon cancer; with subsequent colectomy (~2001) currently in remission * Essential hypertension; on daily amlodipine and Lasix every other day - Hold oral antihypertensives and give prn IV Hydralazine for systolic blood pressure > 160 mmHg. * Hyperlipidemia; on atorvastatin - Hold statin for now until patient is able to safely resume oral intake. * RA; on methotrexate and hydroxychloroquine - Hold MTX and hydroxychloroquine until patient can take her oral medications. * History of polymyalgia rheumatica * former history of tobacco abuse VTE prophylaxis: LMWH Discharge home. Medications at Discharge Home Medications folic acid 1 mg tablet 2 tab PO DAILY SUPPLEMENT 10/20/15 fluoxetine 10 mg capsule 10 mg PO DAILY DEPRESSION 10/21/15 cholecalciferol (vitamin D3) 50 mcg (2,000 unit) capsule 1,000 unit PO DAILY SUPPLEMENT 12/25/17 aspirin 81 mg tablet,delayed release 81 mg PO DAILY heart health 12/24/19 ascorbic acid (vitamin C) 500 mg capsule 500 mg PO DAILY Supplement 03/12/20 atorvastatin 10 mg tablet 10 mg PO QHS cholesterol 11/28/20 acetaminophen 500 mg tablet 500 mg PO Q6H PRN Pain 01/11/21 amlodipine 5 mg tablet 5 mg PO QHS blood pressure 01/11/21 methotrexate sodium 2.5 mg tablet 17.5 mg PO DA SILVA RHEUMATOID 01/11/21 hydroxychloroquine 200 mg tablet 200 mg PO BID inflammation 04/13/21 potassium chloride 20 mEq tablet,extended release(part/cryst) 20 meq PO BIDCM supplement #180 tabs 07/05/21 furosemide 40 mg tablet 40 mg PO Q OTHER DAY water pill #90 tabs 06/04/24 omeprazole 40 mg capsule,delayed release 40 mg PO DAILY 08/12/24 Hospital Course Operations None Procedures None Weight / BMI Weight Weight: 97.2 kg Body Mass Index (BMI) 35.6 ABG / Lab / Microbiology Data 08/13/24 05:42 08/13/24 05:42 Laboratory: Laboratory Results - last 24 hr 08/13/24 05:42: WBC 5.9, RBC 3.80 L, Hgb 11.6 L, Hct 35.7 L, MCV 93.9, MCH 30.5, MCHC 32.5, RDW Std Deviation 46.8 H, RDW Coeff of Unique 13.8, Plt Count 235, MPV 9.7, Immature Gran % (Auto) 0.200, Neut % (Auto) 57.0, Lymph % (Auto) 27.9, [place] % (Auto) 9.5, Eos % (Auto) 5.1 H, Baso % (Auto) 0.3, Absolute Neuts (auto) 3.4, Absolute Lymphs (auto) 1.65, Nucleated RBC % 0, Sodium 142, Potassium 3.5, C hloride 114 H, Carbon Dioxide 24.0, Anion Gap 4 L, BUN 19 H, Creatinine 1.00, Estim Creat Clear Calc 50.90, Est GFR (MDRD) Af Amer 69, Est GFR (MDRD) Non-Af 57 L, BUN/Creatinine Ratio 19.1, Glucose 82, Calcium 8.2 L, Phosphorus 2.4 L, Magnesium 2.3, Total Bilirubin 0.80, AST 15, ALT 13, Alkaline Phosphatase 57, T otal Protein 5.9 L, Albumin 2.8 L, Globulin 3.1, Albumin/Globulin Ratio 0.9 Radiography Diagnostic Testing: Radiology Impression KUB X-Ray 08/12/24 04:50 IMPRESSION: Malpositioned feeding tube-- needs to be repositioned 1. The feeding tube is called upon itself within the mid thoracic esophagus and should be repositioned to terminate in the stomach Electronically Signed: Rm Wyatt MD at 8:20 EST , Small Bowel X-Ray 08/12/24 08:31 IMPRESSION: Findings suggest diffuse ileus versus partial distal small bowel obstruction. Electronically Signed: Tyron Jordan MD at 16:28 EST , KUB X-Ray 08/13/24 06:20 IMPRESSION: Contrast in colon with no evidence of small bowel obstruction. Electronically Signed: Cuong Maza MD at 8:27 EST , D/C Instructions Discharge Diet: 2000 Calorie Control Diet DC O2, CPAP, BIPAP Needs Additional Home O2 Discharge instructions: No DC home with Oxygen: No Meaningful Use Info Meaningful Use Meaningful Use Diagnoses (Choose all that apply): None applicable Ischemic Stroke Statin Dosing Therapy Reference: STATIN DOSE THERAPY REFERENCE: * Patients > 75 years receive moderate or high dose statin therapy. * Patients 75 years or YOUNGER should receive HIGH intensity statin dose unless contraindicated. You will be required to document reason for non-treatment if statin daily dose does not meet guidelines. HIGH DOSE STATIN THERAPY DAILY Atorvastatin > than or = to 40 mg Rosuvastatin > than or = to 20 mg Amlodipine + Atorvastatin > than or = to 2.5/40 mg Ezetimibe + Simvastatin 10/80 mg Simvastatin 80mg Discharge Plan Admission Admit Date/Time: 08/12/24 05:29 Primary Reason for Your Visit: Small bowel obstruction Attending Provider: Renzo Dozier Primary Care Provider: Jesus Ballard Consulting Providers: Julio Patrick; Uche Graff Discharge Orders/Prescriptions Prescriptions: Continued amlodipine 5 mg tablet 5 mg PO QHS acetaminophen 500 mg tablet 500 mg PO Q6H PRN (Reason: Pain) potassium chloride 20 mEq tablet,ER particles/crystals 20 meq PO BIDCM Qty: 180 3RF furosemide 40 mg tablet 40 mg PO Q OTHER DAY Qty: 90 3RF folic acid 1 MG tablet 2 tab PO DAILY Patient Comments: supplement fluoxetine 10 MG capsule 10 mg PO DAILY Patient Comments: depression methotrexate sodium 2.5 mg tablet 17.5 mg PO DA SILVA cholecalciferol (vitamin D3) 2,000 UNIT capsule 1,000 unit PO DAILY aspirin 81 MG tablet,delayed release (DR/EC) 81 mg PO DAILY hydroxychloroquine 200 mg tablet 200 mg PO BID ascorbic acid (vitamin C) 500 MG capsule 500 mg PO DAILY atorvastatin 10 MG tablet 10 mg PO QHS omeprazole 40 mg capsule,delayed release(DR/EC) 40 mg PO DAILY Referrals / Follow Up: Jesus Ballard MD [Primary Care Provider] - Within 2 Weeks Disposition Disposition (needs filled in before D/C Order can be placed): Home, Self Care Charges/Coding Visit Charges Inpatient E&M: 20178 Disch Hosp
--- NOTE | 2024-08-13 11:11 | CASEMGMT ---
Social Work- Pt reports that she has directives naming dtr krunal as primary agent. Pt advised that there is not a copy in pt chart and encouraged to provide a copy at her convenience to be placed on chart. LYRIC Castillo
== END 2024-08-13 11:44 | disposition home or self-care (01) | DRG 390 ==
LOC: ED 04:36 → MS3 05:28
PROVIDERS: Admitting Provider Internal Medicine; Emergency Provider Emergency Medicine; PCP Internal Medicine
DX: K56.600 Partial intestinal obstruction, unspecified as to cause (principal); E66.811 Obesity, class 1; Z66 Do not resuscitate; N18.31 Chronic kidney disease, stage 3a; M06.9 Rheumatoid arthritis, unspecified; I12.9 Hypertensive chronic kidney disease with stage 1 through stage 4 chronic kidney disease, or unspecified chronic kidney disease; Z68.35 Body mass index [BMI] 35.0-35.9, adult; E78.2 Mixed hyperlipidemia; F41.8 Other specified anxiety disorders; G47.33 Obstructive sleep apnea (adult) (pediatric); K21.9 Gastro-esophageal reflux disease without esophagitis; G56.00 Carpal tunnel syndrome, unspecified upper limb; R11.2 Nausea with vomiting, unspecified; E86.0 Dehydration; M35.3 Polymyalgia rheumatica; Z88.0 Allergy status to penicillin; Z88.2 Allergy status to sulfonamides; Z88.8 Allergy status to other drugs, medicaments and biological substances; Z88.1 Allergy status to other antibiotic agents; Z87.19 Personal history of other diseases of the digestive system; Z79.82 Long term (current) use of aspirin; Z90.49 Acquired absence of other specified parts of digestive tract; Z79.52 Long term (current) use of systemic steroids; Z87.81 Personal history of (healed) traumatic fracture; Z79.899 Other long term (current) drug therapy; Z85.038 Personal history of other malignant neoplasm of large intestine; Z96.649 Presence of unspecified artificial hip joint; Z98.890 Other specified postprocedural states; Z87.891 Personal history of nicotine dependence
CPT/HCPCS: 36415; 74018; 74177; 74250; 80048; 80053; 80076; 83605; 83690; 83735; 84100; 84443; 85025; 94668; 99285; J7030; Q9967; A4216; J2405

== ENCOUNTER → 2024-08-27 | Outpatient (CLI) | payer MEDICARE, BC, SELFPAY ==
[2024-08-27 15:15] LABS: Absolute Lymphocyte Count 1.86 X10^3/uL (0.83-4.51); Absolute Neutrophil Count 5.3 X10^3/uL (2.0-7.7); Basophil# 0.06 X10^3/uL; Basophil% 0.7 % (0-1); Eosinophil# 0.36 X10^3/uL; Eosinophils% 4.5 % (0-5); Hemoglobin 12.7 g/dL (12.0-15.0); Lymphocyte # 1.86 X10^3/ul (0.83-4.51); Lymphocyte % 23.2 % (19-41); Mean Corp Hgb Conc 32.6 g/dL (32-36); Mean Platelet Vol. 10.2 fl (6.2-12.0); Monocyte# 0.47 X10^3/uL; Monocyte% 5.9 % (0-10); NRBC Flagged by Analyzer 0 % (0-5); Neutrophil # 5.25 X10^3/uL (2.7-7.7); Neutrophil % 65.3 % (47-70); Platelet Count 295 K/mm3 (150-450); RBC Distribution Width CV 13.5 % (11.6-14.6); RBC Distribution Width SD 45.4 fl (35.1-43.9); Red Blood Count 4.24 M/mm3 (4.2-5.4)
[2024-08-27 15:39] LABS: ALB/GLOB Ratio 1.1 RATIO (0.9-2.4); AST(SGOT) 21 U/L (15-37); Alanine Aminotransfer ALT/SGPT 24 U/L (13-56); Albumin, Serum 3.7 g/dL (3.2-5.0); Alkaline Phosphatase 78 U/L (45-117); Anion Gap 5 (5-15); BUN 15 mg/dL (7-18); BUN/Creat Ratio 16.9 RATIO (10-20); Calcium,Total 9.1 mg/dL (8.5-10.1); Chloride 109 mmol/L (98-107); Creatinine, Serum 0.88 mg/dL (0.55-1.02); EST Glomerular Filtration Rate 65 mL/min (>60); Est Glom Filt Rate - Afr Amer 79 mL/min (>60); Globulin 3.3 g/dL (2.2-4.2); Glucose 75 mg/dL (74-106); Potassium 3.9 mmol/L (3.5-5.1); Sodium Level 139 mmol/L (136-145)
== END | disposition home or self-care (01) ==
LOC: MTLAB 12:34
PROVIDERS: PCP Internal Medicine; Referring Provider Internal Medicine Rheumatology; Visit Provider Internal Medicine Rheumatology
DX: M06.00 Rheumatoid arthritis without rheumatoid factor, unspecified site (principal); Z79.899 Other long term (current) drug therapy; M65.352 Trigger finger, left little finger; M18.0 Bilateral primary osteoarthritis of first carpometacarpal joints; M17.0 Bilateral primary osteoarthritis of knee
CPT/HCPCS: 36415; 80053; 85025

== ENCOUNTER → 2024-11-26 | Outpatient (CLI) | payer MEDICARE, BC, SELFPAY ==
[2024-11-26 17:38] LABS: Basophil# 0.03 X10^3/uL; Basophil% 0.4 % (0-1); Eosinophil# 0.36 X10^3/uL; Eosinophils% 4.4 % (0-5); Hematocrit 38.1 % (37-47); Hemoglobin 12.4 g/dL (12.0-15.0); Lymphocyte % 25.9 % (19-41); Mean Corp Hgb Conc 32.5 g/dL (32-36); Mean Corpuscular Hgb 30.2 pg (27.0-32.0); Mean Corpuscular Volume 92.7 fL (81-99); Mean Platelet Vol. 9.6 fl (6.2-12.0); Monocyte# 0.56 X10^3/uL; Monocyte% 6.9 % (0-10); NRBC Flagged by Analyzer 0 % (0-5); Neutrophil # 5.04 X10^3/uL (2.7-7.7); Neutrophil % 62.2 % (47-70); Platelet Count 314 K/mm3 (150-450); RBC Distribution Width CV 14.9 % (11.6-14.6); RBC Distribution Width SD 49.2 fl (35.1-43.9); Red Blood Count 4.11 M/mm3 (4.2-5.4); White Blood Count 8.1 K/mm3 (4.4-11.0)
[2024-11-26 18:22] LABS: ALB/GLOB Ratio 1.2 RATIO (0.9-2.4); AST(SGOT) 27 U/L (<=31); Alanine Aminotransfer ALT/SGPT 14 U/L (<=34); Albumin, Serum 4.1 g/dL (3.4-4.8); Alkaline Phosphatase 83 U/L (35-104); Anion Gap 12 (5-15); BUN 14 mg/dL (4-19); BUN/Creat Ratio 13.4 RATIO (10-20); Calcium,Total 9.8 mg/dL (7.6-11.0); Carbon Dioxide 25.7 mmol/L (21.0-32.0); Chloride 102 mmol/L (98-108); Creatinine, Serum 1.06 mg/dL (0.70-1.20); EST Glomerular Filtration Rate 53 (>60); Globulin 3.4 g/dL (2.2-4.2); Glucose 76 mg/dL (70-99); Potassium 4.4 mmol/L (3.3-5.1); Protein, Total 7.5 g/dL (5.9-8.4); Sodium Level 140 mmol/L (133-145)
== END | disposition home or self-care (01) ==
LOC: MTLAB 15:27
PROVIDERS: PCP Internal Medicine; Referring Provider Internal Medicine Rheumatology; Visit Provider Internal Medicine Rheumatology
DX: M06.00 Rheumatoid arthritis without rheumatoid factor, unspecified site (principal); Z79.899 Other long term (current) drug therapy; M65.352 Trigger finger, left little finger; M18.0 Bilateral primary osteoarthritis of first carpometacarpal joints; M17.0 Bilateral primary osteoarthritis of knee
CPT/HCPCS: 36415; 80053; 85025

== ENCOUNTER → 2025-02-18 | Outpatient (CLI) | payer MEDICARE, BC, SELFPAY ==
[2025-02-18 15:08] LABS: Absolute Lymphocyte Count 1.68 X10^3/uL (0.83-4.51); Absolute Neutrophil Count 3.5 X10^3/uL (2.0-7.7); Basophil# 0.06 X10^3/uL; Eosinophil# 0.34 X10^3/uL; Eosinophils% 5.5 % (0-5); Hematocrit 36.5 % (37-47); Hemoglobin 11.9 g/dL (12.0-15.0); Lymphocyte # 1.68 X10^3/ul (0.83-4.51); Mean Corp Hgb Conc 32.6 g/dL (32-36); Mean Corpuscular Hgb 31.2 pg (27.0-32.0); Mean Corpuscular Volume 95.8 fL (81-99); Mean Platelet Vol. 9.5 fl (6.2-12.0); Monocyte# 0.59 X10^3/uL; Monocyte% 9.5 % (0-10); NRBC Flagged by Analyzer 0 % (0-5); Neutrophil # 3.54 X10^3/uL (2.7-7.7); Neutrophil % 56.8 % (47-70); Platelet Count 293 K/mm3 (150-450); RBC Distribution Width CV 14.6 % (11.6-14.6); RBC Distribution Width SD 50.6 fl (35.1-43.9); Red Blood Count 3.81 M/mm3 (4.2-5.4); White Blood Count 6.2 K/mm3 (4.4-11.0)
[2025-02-18 16:31] LABS: ALB/GLOB Ratio 1.3 RATIO (0.9-2.4); AST(SGOT) 27 U/L (<=31); Alanine Aminotransfer ALT/SGPT 13 U/L (<=34); Albumin, Serum 4.1 g/dL (3.4-4.8); Alkaline Phosphatase 93 U/L (35-104); Anion Gap 10 (5-15); BUN 14 mg/dL (4-19); BUN/Creat Ratio 15.7 RATIO (10-20); Calcium,Total 9.5 mg/dL (7.6-11.0); Carbon Dioxide 24.9 mmol/L (21.0-32.0); Chloride 102 mmol/L (98-108); Creatinine, Serum 0.91 mg/dL (0.70-1.20); EST Glomerular Filtration Rate 64 (>60); Globulin 3.2 g/dL (2.2-4.2); Glucose 84 mg/dL (70-99); Protein, Total 7.3 g/dL (5.9-8.4); Sodium Level 137 mmol/L (133-145); Total Bilirubin 0.37 mg/dL (0.00-1.30)
== END | disposition home or self-care (01) ==
LOC: MTLAB 12:40
PROVIDERS: PCP Internal Medicine; Referring Provider Internal Medicine Rheumatology; Visit Provider Internal Medicine Rheumatology
DX: M06.00 Rheumatoid arthritis without rheumatoid factor, unspecified site (principal); Z79.899 Other long term (current) drug therapy; M65.352 Trigger finger, left little finger; M18.0 Bilateral primary osteoarthritis of first carpometacarpal joints; M17.0 Bilateral primary osteoarthritis of knee
CPT/HCPCS: 36415; 80053; 85025

== ENCOUNTER → 2025-05-11 | Outpatient (CLI) | payer MEDICARE, BC, SELFPAY ==
[2025-05-11 17:52] LABS: Hematocrit 38.5 % (37-47); Hemoglobin 12.9 g/dL (12.0-15.0); Immature Granulocytes Count 0.010 X10^3/uL (0.0-0.0); Mean Corp Hgb Conc 33.5 g/dL (32-36); Mean Corpuscular Volume 91.4 fL (81-99); Mean Platelet Vol. 9.9 fl (6.2-12.0); NRBC Flagged by Analyzer 0 % (0-5); Platelet Count 284 K/mm3 (150-450); RBC Distribution Width CV 13.4 % (11.6-14.6); RBC Distribution Width SD 44.8 fl (35.1-43.9); Red Blood Count 4.21 M/mm3 (4.2-5.4); White Blood Count 5.9 K/mm3 (4.4-11.0)
[2025-05-11 18:24] LABS: AST(SGOT) 31 U/L (<=31); Alanine Aminotransfer ALT/SGPT 18 U/L (<=34); Albumin, Serum 4.2 g/dL (3.4-4.8); Alkaline Phosphatase 100 U/L (35-104); Anion Gap 14 (5-15); BUN 23 mg/dL (4-19); BUN/Creat Ratio 23.1 RATIO (10-20); Calcium,Total 9.4 mg/dL (7.6-11.0); Carbon Dioxide 24.4 mmol/L (21.0-32.0); Chloride 101 mmol/L (98-108); Globulin 3.0 g/dL (2.2-4.2); Glucose 87 mg/dL (70-99); Potassium 3.9 mmol/L (3.3-5.1)
== END | disposition home or self-care (01) ==
LOC: MTLAB 16:28
PROVIDERS: PCP Internal Medicine; Referring Provider Internal Medicine Rheumatology; Visit Provider Internal Medicine Rheumatology
DX: M06.00 Rheumatoid arthritis without rheumatoid factor, unspecified site (principal); Z79.899 Other long term (current) drug therapy; M65.352 Trigger finger, left little finger; M18.0 Bilateral primary osteoarthritis of first carpometacarpal joints; M17.0 Bilateral primary osteoarthritis of knee
CPT/HCPCS: 36415; 80053; 85025

== ENCOUNTER → 2025-08-08 | Outpatient (CLI) | payer MEDICARE, BC, SELFPAY ==
[2025-08-08 17:40] LABS: Hematocrit 37.8 % (37-47); Hemoglobin 12.6 g/dL (12.0-15.0); Immature Granulocytes Count 0.010 X10^3/uL (0.0-0.0); Mean Corp Hgb Conc 33.3 g/dL (32-36); Mean Corpuscular Volume 92.2 fL (81-99); Mean Platelet Vol. 9.5 fl (6.2-12.0); NRBC Flagged by Analyzer 0 % (0-5); Platelet Count 276 K/mm3 (150-450); RBC Distribution Width CV 14.5 % (11.6-14.6); RBC Distribution Width SD 48.2 fl (35.1-43.9); Red Blood Count 4.10 M/mm3 (4.2-5.4); White Blood Count 7.4 K/mm3 (4.4-11.0)
[2025-08-08 18:13] LABS: AST(SGOT) 29 U/L (<=31); Alanine Aminotransfer ALT/SGPT 15 U/L (<=34); Albumin, Serum 4.1 g/dL (3.4-4.8); Alkaline Phosphatase 84 U/L (35-104); Anion Gap 10 (5-15); BUN 20 mg/dL (4-19); BUN/Creat Ratio 18.9 RATIO (10-20); Calcium,Total 9.6 mg/dL (7.6-11.0); Carbon Dioxide 27.5 mmol/L (21.0-32.0); Chloride 102 mmol/L (98-108); Globulin 3.1 g/dL (2.2-4.2); Glucose 88 mg/dL (70-99); Potassium 4.4 mmol/L (3.3-5.1)
== END | disposition home or self-care (01) ==
LOC: MTLAB 16:16
PROVIDERS: PCP Internal Medicine; Referring Provider Internal Medicine Rheumatology; Visit Provider Internal Medicine Rheumatology
DX: M06.00 Rheumatoid arthritis without rheumatoid factor, unspecified site (principal); Z79.899 Other long term (current) drug therapy
CPT/HCPCS: 36415; 80053; 85025